=== PATIENT | female | born 1955 | race Caucasian/White ===

== ENCOUNTER → 2024-07-15 | Outpatient (CLI) | payer MEDICARE, BC, SELFPAY ==
[2024-07-15 11:45] LABS: Basophils % (Auto) 0 % (0-2.5); Eosinophils # (Auto) 0.2 Thou/mm3 (0.0-0.5); Eosinophils % (Auto) 4 % (0-10); Hematocrit 28.5 % (36.0-46.0); Immature Granulocytes % (Auto) 1 % (0-0); Immature Granulocytes Auto 0.05 Thou/mm3 (0.00-0.00); Lymphocytes # (Auto) 1.1 Thou/mm3 (1.0-4.8); Lymphocytes % (Auto) 24 % (10-50); Mean Corpuscular HGB Conc 30.2 g/dl (31.0-37.0); Mean Corpuscular Hemoglobin 28.2 pg (25.0-35.0); Mean Corpuscular Volume 93 fL (80-100); Monocytes # (Auto) 0.6 Thou/mm3 (0.0-0.8); Monocytes % (Auto) 12 % (0-12); Neutrophils # (Auto) 2.7 Thou/mm3 (1.8-7.7); Neutrophils % (Auto) 58 % (37-80); Nucleated Red Blood Cell % 0 /100 WBC (0); Platelet Count 286 Thou/mm3 (140-440); RDW Standard Deviation 63.4 fL (36.4-46.3); Red Blood Count 3.05 Miln/mm3 (4.00-5.20); White Blood Count 4.7 Thou/mm3 (3.6-11.0)
[2024-07-15 11:47] LABS: Hemoglobin 8.6 g/dL (12.0-16.0); Partial Thromboplastin Time 25.4 Seconds (22.0-36.0); Prothrombin Time 10.7 Seconds (9.0-12.2)
[2024-07-15 11:55] LABS: Glucose Estimated Average 123 mg/dL (80-131); Hemoglobin A1C 5.9 % Hgb (4.8-6.0)
[2024-07-15 12:34] LABS: Alanine Aminotransferase 12 U/L (10-49); Albumin, Serum 3.7 gm/dL (3.4-4.8); Albumin/Globulin Ratio 1.9 (1.2-2.2); Alkaline Phosphatase 100 U/L (46-116); Anion Gap 7 (7-16); Aspartate Amino Transferase 15 U/L (0-34); BUN/Creatinine Ratio 19 Ratio (12-20); Bilirubin,Total 0.2 mg/dL (0.3-1.2); Blood Urea Nitrogen 25 mg/dL (9-23); Calcium (Corrected) 9.2 mg/dL (8.5-10.1); Carbon Dioxide 28.1 mMol/L (20.0-31.0); Chloride 104 mMol/L (98-107); Creatinine (Component) 1.3 mg/dL (0.6-1.3); Glucose 156 mg/dL (74-106); Osmolality,Calculated 284 (275-295); Potassium 3.9 mMol/L (3.4-5.1); Sodium 139 mMol/L (136-145); Total Protein 5.7 gm/dL (5.7-8.2); eGFR 45 See Note
== END | disposition home or self-care (01) ==
LOC: COPL 10:16
PROVIDERS: PCP Internal Medicine; Referring Provider Internal Medicine; Visit Provider Internal Medicine
DX: M19.90 Unspecified osteoarthritis, unspecified site (principal); E11.9 Type 2 diabetes mellitus without complications
CPT/HCPCS: 36415; 80053; 83036; 85025; 85610; 85730

== ENCOUNTER → 2024-07-23 | Outpatient (CLI) | payer MEDICARE, BC, SELFPAY ==
--- NOTE | 2024-07-23 08:30 | XR_ITS ---
Examination: MRI pelvis with intravenous contrast. MRI pelvis without intravenous contrast. Date and time of exam: July 23, 2024 0843 hrs. Comparison May 27, 2024 Indications: Burning sensation in the pelvis 3 weeks status post radiation therapy, diagnosis uterine cancer Technique: Multiple axial, sagittal and coronal sections of the pelvis obtained. Transverse images, TR 6020, TE 107. T1 weighted transverse images, TR 582, TE 9.5. T2-weighted sagittal images, TR 4000, TE 105. T2-weighted sagittal images, TR 4000, TE 5. Coronal images, TR 4210, TE 107. Axial and coronal images are obtained post 15 cc intravenous injection, gadolinium. Findings: Uterus 10 x 6 x 5 cm The endometrial uterine mass has markedly decreased in size, 18 x 12 x 10 mm compared to 18 x 35 x 37 mm on the pretreatment exam Endometrial stripe is 9 mm 6 mm left internal iliac lymph node, 4 mm right internal iliac lymph node No free fluid in the pelvis Colonic diverticulosis Impression: Marked decrease in size of uterine mass 1.8 x 1.2 x 1.0 cm compared with 1.8 x 3.5 x 3.7 cm on the pretreatment examination
== END | disposition home or self-care (01) ==
PROVIDERS: PCP Internal Medicine; Referring Provider Internal Medicine; Visit Provider Internal Medicine
DX: R19.00 Intra-abdominal and pelvic swelling, mass and lump, unspecified site (principal); C54.1 Malignant neoplasm of endometrium
CPT/HCPCS: 72197; A9579

== ENCOUNTER 2024-10-27 04:43 | Inpatient (IN) | payer MEDICARE, BC, SELFPAY ==
[2024-10-27] VITALS (32 sets, daily range): BP systolic 80–112; BP diastolic 45–78; PULSE 0–135; RESP 14–100; TEMP 36.2–38.6; O2SAT 89–100
--- NOTE | 2024-10-27 05:21 | XR_ITS ---
Examination: AP chest single view Technique one AP portable semiupright chest single view Exam date and time: October 27, 2024 0559 hours INDICATIONS: Sepsis protocol FINDINGS: Pneumonia left base obscuring detail left hemidiaphragm Right Port-A-Cath tip SVC Mild enlargement left ventricle IMPRESSION: Pneumonia left base
[2024-10-27] MEDS: SODIUM CHLORIDE 0.9% 1000 ML 1,000 ML 999 ML IV ×2 (05:40→06:36)
[2024-10-27 05:41] LABS: Collection Type, Urine Catheter
[2024-10-27 05:51] LABS: Lactate (Lactic Acid) 1.6 mMol/L (0.4-2.0)
[2024-10-27] MEDS: PIPER/TAZO 3.375 GM PREMIX 3.375 GM/50 ML BAG IV ×3 (05:54→22:17)
--- NOTE | 2024-10-27 05:54 | PD.EDADULT ---
ED General RME/HPI General Chief complaint: Nausea/Vomiting/Diarrhea Stated complaint: vomiting Arrival date/time: 10/27/24 04:43 RME / HPI RME / HPI narrative: Patient is a 69 yearsn old female with PMH of bilateral obstructive nephrolithiasis s/p bilateral nephrostomy, chronic blood loss anemia secondary to uterine bleeding from endometrial cancer on chemo/radiotherapy, history of recurrent blood transfusions, COPD with 2L baseline O2, NIDDM, unspecified colitis, GERD presented to the ED due to nausea, vomiting for 2 days. She reports her abdominal pain is chronic due to multiple abdominal surgeries (cholecystectomy, hernia repair, ovarian cyst removal, unsuccessful hysterectomy). Nephrostomy tubes were placed somwhere in September as per patient. She denies fever, chest pain, diarrhea, melena or blood per rectum. She reports constipation, her last bowel movement was yesterday and was very small, she cannot recall when was prior bowel movement. She produces small ammount of urine. Related Data Home Medications ?Medication ?Instructions ?Recorded ?Confirmed ascorbic acid (vitamin C) 500 mg 500 mg PO BID #0 tabs 08/15/15 06/14/23 tablet (Vitamin C) cholecalciferol (vitamin D3) 25 1,000 unit PO QDAY #0 tabs 08/15/15 06/14/23 mcg (1,000 unit) capsule (Vitamin D3) aspirin 81 mg tablet,delayed 81 mg PO QDAY 07/01/19 06/14/23 release cyanocobalamin (vitamin B-12) 1,000 mcg PO QDAY 07/01/19 06/14/23 1,000 mcg tablet (Vitamin B-12) glucosamine HCl 500 mg tablet 1,000 mg PO QAM 07/01/19 06/14/23 albuterol 90 mcg/actuation aerosol 90 mcg inhalation [id number] PRN 04/30/23 06/14/23 inhaler Wheezing diphenhydramine HCl 25 mg tablet 25 mg PO Q12HR PRN Itching 06/14/23 06/14/23 (Benadryl Allergy) ipratropium 18 mcg-albuterol 103 2 spray inhalation Q6HR PRN 06/14/23 06/14/23 mcg/actuation aerosol inhaler Shortness Of Breath Or Wheezing magnesium oxide 400 mg PO QDAY 06/14/23 06/14/23 melatonin 5 mg tablet 5 mg PO HS PRN Sleep 06/14/23 06/14/23 ondansetron HCl 4 mg tablet 4 mg PO Q6H PRN Nausea 06/14/23 06/14/23 pantoprazole 40 mg tablet,delayed 40 mg PO QDAY 06/14/23 06/14/23 release (Protonix) Previous Rx's ?Medication ?Instructions ?Recorded ferrous sulfate 325 mg (65 mg 325 mg PO DAILY #30 tabs 05/07/23 iron) tablet,delayed release oxycodone-acetaminophen 5 mg-325 1 tab PO Q8H PRN pain #7 tabs 11/04/24 mg tablet (Percocet) Allergies Allergy/AdvReac Type Severity Reaction Status Date / Time coconut oil Allergy Severe Rash Verified 10/31/24 12:33 clindamycin Allergy Diarrhea Verified 10/31/24 12:33 Review of Systems Review of Systems Systems Reviewed: All systems reviewed, normal except as documented ED Exam Narrative Physical exam: Gen: Well-developed and well-nourished obese female. HEENT: NCAT, PERRLA, EOMI, MMM, anicteric conjunctivae. CVS: normal S1 and S2. Regular tachycardia. No M/R/G. Resp: decreased BS over left base. No rhonchi, rales, crackles or wheezing. Abd: soft, obese, tender throughout with voluntary guarding, non-distended. BS+ in all 4 quadrants. : B/L CVA and suprapubic tenderness. Bilateral nephrostomy tubes noted, left is draining cloudy urine. MSK: Good ROM in BUE & BLE. No edema or rash. Neuro: CN II-XII grossly intact. Strength 5/5 in BUE & BLE. Alert and oriented x3. Psych: appears upset. Course Course Course Narrative: 0512: sepsis alert. Given Zosyn and IVF. Cultures taken. 1100: decision to admit, hospitalist wants to consult urology prior to admission because the patient is at high risk of urologic complications and given her UTI she might need urology services during hospital stay which is not available at [facility]. Transfer center was contacted. 1200: blood pressure continued to drop, MAP below 65 despite fluid resuscitation. Started on Levophed gtt septic shock protocol. ICU consulted for admission. Quality Measures none Orders Category Date Time Status Bedside Blood Glucose ACHS Care 10/27/24 05:21 Active Bedside Blood Glucose NOW Care 10/27/24 07:02 Completed Bedside COVID-19 Antigen Test NOW Care 10/27/24 05:17 Completed Bedside Influenza A&B Antigen Test NOW Care 10/27/24 05:17 Completed COVID-19 Screening Questionnaire NOW Care 10/27/24 11:03 Completed COVID-19 Screening Questionnaire NOW Care 10/27/24 12:18 Completed Inspector Aide Q4H START 00 Care 10/27/24 05:21 Active Decision to Admit X1 Care 10/27/24 11:03 Completed Decision to Admit X1 Care 10/27/24 12:18 Completed EKG (ED ONLY) *Do not use* NOW Care 10/27/24 05:11 Completed IV [Insert IV] NOW Care 10/27/24 05:23 Completed Insert IV NOW Care 10/27/24 05:21 Completed Miscellaneous Nursing Order NOW Care 10/27/24 12:51 Active Strict Intake and Output Routine Care 10/27/24 05:[address] abdomen pelvis wo con Stat Exams 10/27/24 07:01 Completed EKG (ED Only) Stat Exams 10/27/24 05:11 Ordered XR chest 1V SEPSIS PROTOCOL Stat Exams 10/27/24 05:21 Completed BNP [B-Type Natriuretic Peptide] Stat Lab 10/27/24 05:30 Completed Blood Culture (Lab) Stat Lab 10/27/24 05:30 Completed CBC Stat Lab 10/27/24 05:30 Completed CMP [Comprehensive Metabolic Panel] Stat Lab 10/27/24 05:30 Completed Lactic Acid [Lactate (Lactic Acid)] Stat Lab 10/27/24 05:30 Completed Lipase Stat Lab 10/27/24 05:30 Completed Procalcitonin Stat Lab 10/27/24 05:30 Completed Prothrombin Time with INR Stat Lab 10/27/24 05:30 Completed Troponin I Stat Lab 10/27/24 05:30 Completed Urinalysis, C/S if Indicated Stat Lab 10/27/24 05:30 Completed Urine Culture Stat Lab 10/27/24 05:30 Completed Acetaminophen Tab [Tylenol Tab] Med 10/27/24 06:17 Discontinued 650 mg PO X1 ONE Calcium Chloride 10% Abboject Med 10/27/24 07:02 Discontinued 10 ml IV X1 ONE Dextrose 50% Syr [D50w Syringe Abboject] Med 10/27/24 07:03 Discontinued 50 ml IV X1 ONE Insulin Regular Med 10/27/24 07:02 Discontinued 10 unit IV X1 ONE Ketorolac Inj [Toradol Inj] Med 10/27/24 11:01 Discontinued 15 mg IVP X1 ONE Norepinephrine/D5W 8mg/250ml [Levophed in D5W 8mg/250ml Med 10/27/24 12:35 Discontinued ] 8 mg in 250 ml IV 0.05 mcg/kg/min Piper/Tazo 3.375 gm Premix [Zosyn] Med 10/27/24 05:28 Discontinued 3.375 gm in 50 ml IV X1 Sodium Chloride 0.9% 1000 ml [Ns] 1,000 ml Med 10/27/24 05:25 Discontinued IV 999 mls/hr Sodium Chloride 0.9% 1000 ml [Ns] 1,000 ml Med 10/27/24 05:28 Discontinued IV 999 mls/hr Sodium Chloride 0.9% 500 ml [Ns] 500 ml Med 10/27/24 11:02 Discontinued IV 999 mls/hr Sodium Chloride 0.9% 500 ml [Ns] 500 ml Med 10/27/24 12:17 Discontinued IV 999 mls/hr EKG (RT) Stat RT 10/27/24 05:21 Ordered Oxygen Delivery NOW RT 10/27/24 05:21 Completed Vital Signs Vital signs: Vital Signs Temperature 99.8 F 10/27/24 04:49 Pulse Rate 133 H 10/27/24 04:49 Respiratory Rate 18 10/27/24 04:49 Blood Pressure 102/71 10/27/24 04:49 Pulse Oximetry (%) 97 10/27/24 04:49 Oxygen Delivery Method Room Air 10/27/24 04:49 Procedures -ED EKG Interpretation #1: Date of EK10/27/24 Time of EK:17 Rate: 133 Interpretation: Reviewed by me EKG Impression: Sinus tachycardia and Non-specific ST-T MDM Patient data External records reviewed:: [facility] previous records and EMS form Clinical information provided by:: patient Social determinants that could affect healthcare access:: none Patient has the following chronic illnesses:: bilateral obstructive nephrolithiasis s/p bilateral nephrostomy, chronic blood loss anemia secondary to abnormal uterine bleeding from endometrial cancer, history of recurrent blood transfusions, COPD with 2L baseline O2, NIDDM, GERD How is presenting disease/condition affected by chronic disease/condition?: exacerbated by Evaluation data The following diagnostics were reviewed and interpreted by me:: lab results, radiology exam(s) and EKG tracing(s) Lab and/or radiology exams considered but not ordered:: CT AP Interpretation Summary: UTI, left base pneumonia, mild anemia, mild hyperkalemia, mild hyponatremia, WARREN (Cr 2.3), hyperglycemia, early diverticulitis. Medications Medications considered but not ordered:: na Medication administrations:: Medication Administration History Acetaminophen (Acetaminophen 325 Mg Tablet) 650 mg PO Q4HR PRN PRN Reason: PAIN SCALE 1-3 (mild Stop: 11/26/24 12:56 Acetaminophen (Acetaminophen Supp 650 Mg Supp) 650 mg VT Q4HR PRN PRN Reason: PAIN SCALE 1-3 (mild Stop: 11/26/24 12:56 Al Hydrox/Mg Hydrox/Simethicone (Mg Hyd/Al Hyd/Bety (Maalox Reg) Susp 30 Ml Udc) 30 ml PO Q4HR PRN PRN Reason: Heartburn or Upset Stomach Stop: 11/26/24 12:56 Heparin Sodium (Porcine) (Heparin Sod Inj 5000 Unit/Ml Vial) 5,000 unit SC Q12HR JESSICA Stop: 11/19/24 11:29 Last Admin: 11/05/24 11:55 Dose: 5,000 unit Documented By: CARLA Co-signed By: PHOEBE Hydromorphone HCl (Hydromorphone Inj 2 Mg/Ml Vial) 0.25 mg IVP Q4HR PRN PRN Reason: PAIN 4-10 Stop: 11/08/24 11:24 Last Admin: 11/05/24 13:42 Dose: 0.25 mg Documented By: CARLA Levofloxacin (Levofloxacin 250 Mg Tablet) 750 mg PO Q48H JESSICA Stop: 11/12/24 20:59 Magnesium Hydroxide (Milk Of Magnesia Susp 30 Ml Udc) 30 ml PO QDAY PRN PRN Reason: CONSTIPATION Stop: 11/26/24 12:56 Last Admin: 11/04/24 14:34 Dose: 30 ml Documented By: PHOEBE Midodrine (Midodrine 5 Mg Tablet) 10 mg PO TID JESSICA Stop: 11/28/24 06:59 Last Admin: 11/05/24 13:43 Dose: 10 mg Documented By: Admin: 11/05/24 05:47 Dose: 10 mg Documented By: Admin: 11/04/24 21:11 Dose: 10 mg Documented By: Admin: 11/04/24 14:34 Dose: 10 mg Documented By: Admin: 11/04/24 05:32 Dose: 10 mg Documented By: Admin: 11/03/24 21:17 Dose: 10 mg Documented By: Admin: 11/03/24 14:26 Dose: 10 mg Documented By: Admin: 11/03/24 05:31 Dose: 10 mg Documented By: Admin: 11/02/24 21:33 Dose: 10 mg Documented By: Admin: 11/02/24 13:21 Dose: Not Given Documented By: CARLA Non-Admin Reason: pt transferred to [facility] for procedure Admin: 11/02/24 06:16 Dose: 10 mg Documented By: Admin: 11/01/24 22:21 Dose: 10 mg Documented By: Admin: 11/01/24 13:51 Dose: 10 mg Documented By: Admin: 11/01/24 05:01 Dose: 10 mg Documented By: Admin: 10/31/24 21:14 Dose: 10 mg Documented By: Admin: 10/31/24 14:24 Dose: 10 mg Documented By: Admin: 10/31/24 06:01 Dose: 10 mg Documented By: Admin: 10/30/24 22:13 Dose: 10 mg Documented By: Admin: 10/30/24 13:40 Dose: 10 mg Documented By: KASSANDRA(2) Admin: 10/30/24 06:00 Dose: 10 mg Documented By: Admin: 10/29/24 21:30 Dose: 10 mg Documented By: Admin: 10/29/24 13:48 Dose: 10 mg Documented By: Admin: 10/29/24 08:25 Dose: 10 mg Documented By: LALA Nitroglycerin (Nitroglycerin 0.4 Mg Subl Btl #25) 0.4 mg SL Q5MIN PRN PRN Reason: CHEST PAIN Ondansetron HCl (Ondansetron Inj 2 Mg/Ml Inj 2 Ml) 4 mg IV Q6HR PRN; Protocol PRN Reason: NAUSEA OR VOMITING Stop: 11/27/24 10:35 Last Admin: 11/05/24 08:56 Dose: 4 mg Documented By: Admin: 11/04/24 23:40 Dose: 4 mg Documented By: Admin: 11/04/24 04:33 Dose: 4 mg Documented By: Admin: 11/03/24 08:24 Dose: 4 mg Documented By: Admin: 11/02/24 18:16 Dose: 4 mg Documented By: Admin: 11/02/24 08:30 Dose: 4 mg Documented By: Admin: 11/01/24 22:20 Dose: 4 mg Documented By: Admin: 11/01/24 11:18 Dose: 4 mg Documented By: Admin: 11/01/24 04:40 Dose: 4 mg Documented By: Admin: 10/31/24 21:15 Dose: 4 mg Documented By: Admin: 10/31/24 07:47 Dose: 4 mg Documented By: Admin: 10/30/24 19:24 Dose: 4 mg Documented By: Admin: 10/30/24 04:18 Dose: 4 mg Documented By: Admin: 10/29/24 12:29 Dose: 4 mg Documented By: Admin: 10/29/24 05:34 Dose: 4 mg Documented By: Admin: 10/28/24 22:12 Dose: 4 mg Documented By: Admin: 10/28/24 10:41 Dose: 4 mg Documented By: KASSANDRA(2) Pantoprazole Sodium (Pantoprazole Inj 40 Mg Vial) 40 mg IV QDAY JESSICA Stop: 11/26/24 15:44 Last Admin: 11/05/24 08:55 Dose: 40 mg Documented By: Admin: 11/04/24 08:02 Dose: 40 mg Documented By: Admin: 11/03/24 08:24 Dose: 40 mg Documented By: Admin: 11/02/24 08:41 Dose: 40 mg Documented By: Admin: 11/01/24 09:34 Dose: 40 mg Documented By: Admin: 10/31/24 08:37 Dose: 40 mg Documented By: Admin: 10/30/24 09:11 Dose: 40 mg Documented By: KASSANDRA(2) Admin: 10/29/24 08:24 Dose: 40 mg Documented By: Admin: 10/28/24 08:23 Dose: 40 mg Documented By: KASSANDRA(2) Admin: 10/27/24 15:45 Dose: 40 mg Documented By: MC Discontinued Medications Acetaminophen (Acetaminophen 325 Mg Tablet) 650 mg PO X1 ONE Stop: 10/27/24 06:18 Last Admin: 10/27/24 06:33 Dose: 650 mg Documented By: CVL Hydrocodone Bitart/Acetaminophen (Hydrocodone/Apap 5/325 Tablet) 1 tab PO Q6HR PRN PRN Reason: Pain 4-6 Stop: 11/02/24 09:16 Last Admin: 10/30/24 19:20 Dose: 1 tab Documented By: YARA Hydrocodone Bitart/Acetaminophen (Hydrocodone/Apap 5/325 Tablet) 1 tab PO X1 ONE Stop: 11/02/24 17:59 Last Admin: 11/02/24 18:06 Dose: Not Given Documented By: PHOEBE Non-Admin Reason: Patient Refused Hydrocodone Bitart/Acetaminophen (Hydrocodone/Apap 5/325 Tablet) 1 tab PO Q6HR PRN PRN Reason: PAIN SCALE 4-6 (Moderate Stop: 11/08/24 08:39 Aspirin (Aspirin 81 Mg Chew) 162 mg PO X1 ONE Stop: 10/30/24 16:01 Last Admin: 10/30/24 16:07 Dose: 162 mg Documented By: KASSANDRA(2) Calcium Chloride (Calcium Chloride 10% Inj 10 Ml Syrg) 10 ml IV X1 ONE Stop: 10/27/24 07:03 Last Admin: 10/27/24 07:51 Dose: 10 ml Documented By: MONSE Dextrose (Dextrose 50%-Water Inj 50 Ml Syringe) 50 ml IV X1 ONE Stop: 10/27/24 07:04 Last Admin: 10/27/24 07:54 Dose: 50 ml Documented By: MONSE Fentanyl Citrate (Fentanyl Cit Inj 50 Mcg/Ml Amp 2ml) Confirm Administered Dose 100 mcg .ROUTE .STK-MED ONE Stop: 10/31/24 12:17 Last Admin: 10/31/24 13:20 Dose: Not Given Documented By: TOLU Non-Admin Reason: Duplicate Medication on eMAR Fentanyl Citrate (Fentanyl Cit Inj 50 Mcg/Ml Amp 2ml) 50 mcg IVP X1 ONE Stop: 10/31/24 12:44 Last Admin: 10/31/24 12:44 Dose: 50 mcg Documented By: TOLU Flumazenil (Flumazenil Inj 0.1 Mg/Ml Vial 10 Ml) Confirm Administered Dose 1 mg .ROUTE .STK-MED ONE Stop: 10/31/24 12:17 Last Admin: 10/31/24 13:20 Dose: Not Given Documented By: TOLU Non-Admin Reason: not needed Heparin Sodium (Beef Lung) (Heparin Sod Lock Syr 100 Unit/Ml) 100 unit IV X1 ONE Stop: 11/02/24 00:10 Last Admin: 11/02/24 00:41 Dose: 100 unit Documented By: BRIGHT Heparin Sodium (Beef Lung) (Heparin Sod Lock Syr 100 Unit/Ml) 100 unit IV X1 ONE Stop: 11/02/24 05:46 Last Admin: 11/02/24 06:20 Dose: 100 unit Documented By: BRIGHT Heparin Sodium (Beef Lung) (Heparin Sod Lock Syr 100 Unit/Ml) 500 unit INTRACATH X1 ONE Stop: 11/02/24 12:01 Last Admin: 11/02/24 11:57 Dose: 500 unit Documented By: CARLA Heparin Sodium (Porcine) (Heparin Sod Inj 5000 Unit/Ml Vial) 5,000 unit SC Q8HR JESSICA Stop: 11/13/24 16:14 Last Admin: 11/03/24 05:31 Dose: 5,000 unit Documented By: AL Co-signed By: HOLGER Admin: 11/02/24 21:33 Dose: 5,000 unit Documented By: AL Co-signed By: ADRI Admin: 11/02/24 13:21 Dose: Not Given Documented By: CARLA Non-Admin Reason: pt transferred to [facility] for procedure Admin: 11/02/24 06:16 Dose: 5,000 unit Documented By: BRIGHT Co-signed By: LIZANDRO Admin: 11/01/24 22:20 Dose: 5,000 unit Documented By: CP Co-signed By: RB Admin: 10/31/24 06:01 Dose: 5,000 unit Documented By: RH Co-signed By: GILBERT Admin: 10/30/24 22:14 Dose: 5,000 unit Documented By: RH Co-signed By: GILBERT Admin: 10/30/24 16:34 Dose: 5,000 unit Documented By: KASSANDRA(2) Co-signed By: loraine Heparin Sodium (Porcine) (Heparin Sod Inj 100 Unit/Ml Vial 30 Ml) 100 unit IV X1 ONE Stop: 11/02/24 05:06 Hydromorphone HCl (Hydromorphone Inj 2 Mg/Ml Vial) 0.25 mg IVP Q4HR PRN PRN Reason: PAIN 4-10 Stop: 11/08/24 11:24 Last Admin: 11/03/24 14:19 Dose: 0.25 mg Documented By: BRENTON Hydromorphone HCl (Hydromorphone Inj 2 Mg/Ml Vial) 0.25 mg IVP X1 ONE Stop: 11/03/24 15:55 Last Admin: 11/03/24 16:13 Dose: 0.25 mg Documented By: BRENTON Hydromorphone HCl (Hydromorphone Inj 2 Mg/Ml Vial) 0.5 mg IVP Q4HR PRN PRN Reason: PAIN 4-10 Stop: 11/08/24 11:24 Last Admin: 11/05/24 08:55 Dose: 0.5 mg Documented By: Admin: 11/05/24 03:49 Dose: 0.5 mg Documented By: Admin: 11/04/24 23:41 Dose: 0.5 mg Documented By: Admin: 11/04/24 19:40 Dose: 0.5 mg Documented By: Admin: 11/04/24 14:34 Dose: 0.5 mg Documented By: Admin: 11/04/24 09:11 Dose: 0.5 mg Documented By: Admin: 11/04/24 04:32 Dose: 0.5 mg Documented By: Admin: 11/03/24 21:16 Dose: 0.5 mg Documented By: FARTUN Sodium Chloride (Ns) 1,000 mls @ 999 mls/hr IV .Q1H1M ONE Stop: 10/27/24 06:25 Last Infusion: 10/27/24 06:42 Dose: Infused Documented By: Admin: 10/27/24 05:40 Dose: 999 mls/hr Documented By: CVL Piperacillin/Tazobactam/Dextrose (Zosyn) 3.375 gm in 50 mls @ 100 mls/hr IV X1 ONE Stop: 10/27/24 05:57 Last Infusion: 10/27/24 06:28 Dose: Infused Documented By: Admin: 10/27/24 05:54 Dose: 100 mls/hr Documented By: CVL Sodium Chloride (Ns) 1,000 mls @ 999 mls/hr IV .Q1H1M ONE Stop: 10/27/24 06:28 Last Infusion: 10/27/24 07:37 Dose: Infused Documented By: Admin: 10/27/24 06:36 Dose: 999 mls/hr Documented By: CVLucas Sodium Chloride (Ns) 500 mls @ 999 mls/hr IV .Q31M ONE Stop: 10/27/24 11:32 Last Infusion: 10/27/24 12:12 Dose: Infused Documented By: Admin: 10/27/24 11:18 Dose: 999 mls/hr Documented By: JEROME Sodium Chloride (Ns) 500 mls @ 999 mls/hr IV .Q31M ONE Stop: 10/27/24 12:47 Last Infusion: 10/27/24 13:10 Dose: Infused Documented By: Admin: 10/27/24 12:34 Dose: 999 mls/hr Documented By: BERTIN Norepinephrine/Dextrose (Levophed In D5w 8mg/250ml) 8 mg in 250 mls @ 8.066 mls/hr IV .Q24H PRN; Protocol PRN Reason: PER PROTOCOL Stop: 11/26/24 12:34 Last Titration: 10/31/24 17:00 Dose: 0 mcg/kg/min, 0 mls/hr Documented By: Titration: 10/31/24 16:00 Dose: 0.01 mcg/kg/min, 1.613 mls/hr Documented By: Titration: 10/31/24 15:42 Dose: 0.01 mcg/kg/min, 1.613 mls/hr Documented By: Titration: 10/31/24 15:00 Dose: 0.03 mcg/kg/min, 4.839 mls/hr Documented By: Titration: 10/31/24 14:00 Dose: 0.03 mcg/kg/min, 4.839 mls/hr Documented By: Titration: 10/31/24 13:00 Dose: 0.05 mcg/kg/min, 8.066 mls/hr Documented By: Titration: 10/31/24 12:00 Dose: 0.05 mcg/kg/min, 8.066 mls/hr Documented By: Titration: 10/31/24 11:09 Dose: 0.05 mcg/kg/min, 8.066 mls/hr Documented By: Titration: 10/30/24 22:48 Dose: 0 mcg/kg/min, 0 mls/hr Documented By: Titration: 10/30/24 22:00 Dose: 0.01 mcg/kg/min, 1.613 mls/hr Documented By: Titration: 10/30/24 21:00 Dose: 0.01 mcg/kg/min, 1.613 mls/hr Documented By: Titration: 10/30/24 20:48 Dose: 0.01 mcg/kg/min, 1.613 mls/hr Documented By: Titration: 10/30/24 20:15 Dose: 0.03 mcg/kg/min, 4.839 mls/hr Documented By: Titration: 10/30/24 20:00 Dose: 0.05 mcg/kg/min, 8.066 mls/hr Documented By: Titration: 10/30/24 19:00 Dose: 0.05 mcg/kg/min, 8.066 mls/hr Documented By: Titration: 10/30/24 18:31 Dose: 0.05 mcg/kg/min, 8.066 mls/hr Documented By: KASSANDRA(2) Titration: 10/30/24 18:00 Dose: 0 mcg/kg/min, 0 mls/hr Documented By: KASSANDRA(2) Titration: 10/30/24 17:50 Dose: 0 mcg/kg/min, 0 mls/hr Documented By: KASSANDRA(2) Titration: 10/30/24 17:00 Dose: 0.03 mcg/kg/min, 4.839 mls/hr Documented By: KASSANDRA(2) Titration: 10/30/24 16:40 Dose: 0.03 mcg/kg/min, 4.839 mls/hr Documented By: KASSANDRA(2) Titration: 10/30/24 16:00 Dose: 0.01 mcg/kg/min, 1.613 mls/hr Documented By: KASSANDRA(2) Titration: 10/30/24 15:44 Dose: 0.01 mcg/kg/min, 1.613 mls/hr Documented By: KASSANDRA(2) Titration: 10/30/24 15:00 Dose: 0.03 mcg/kg/min, 4.839 mls/hr Documented By: KASSANDRA(2) Titration: 10/30/24 14:00 Dose: 0.03 mcg/kg/min, 4.839 mls/hr Documented By: KASSANDRA(2) Titration: 10/30/24 13:45 Dose: 0.03 mcg/kg/min, 4.839 mls/hr Documented By: KASSANDRA(2) Titration: 10/30/24 13:03 Dose: 0.05 mcg/kg/min, 8.066 mls/hr Documented By: KASSANDRA(2) Titration: 10/30/24 12:00 Dose: 0.05 mcg/kg/min, 8.066 mls/hr Documented By: KASSANDRA(2) Titration: 10/30/24 11:00 Dose: 0.05 mcg/kg/min, 8.066 mls/hr Documented By: KASSANDRA(2) Titration: 10/30/24 10:00 Dose: 0.05 mcg/kg/min, 8.066 mls/hr Documented By: KASSANDRA(2) Titration: 10/30/24 09:00 Dose: 0.05 mcg/kg/min, 8.066 mls/hr Documented By: KASSANDRA(2) Titration: 10/30/24 08:00 Dose: 0.05 mcg/kg/min, 8.066 mls/hr Documented By: KASSANDRA(2) Titration: 10/30/24 07:00 Dose: 0.05 mcg/kg/min, 8.066 mls/hr Documented By: KASSANDRA(2) Titration: 10/30/24 06:45 Dose: 0.05 mcg/kg/min, 8.066 mls/hr Documented By: KASSANDRA(2) Admin: 10/30/24 06:36 Dose: 0.05 mcg/kg/min, 8.066 mls/hr Documented By: Titration: 10/30/24 06:36 Dose: Infused Documented By: Titration: 10/29/24 08:30 Dose: 0 mcg/kg/min, 0 mls/hr Documented By: Titration: 10/29/24 08:09 Dose: 0.01 mcg/kg/min, 1.613 mls/hr Documented By: Titration: 10/29/24 08:02 Dose: 0.03 mcg/kg/min, 4.839 mls/hr Documented By: Titration: 10/29/24 08:00 Dose: 0.05 mcg/kg/min, 8.066 mls/hr Documented By: Titration: 10/29/24 07:00 Dose: 0.05 mcg/kg/min, 8.066 mls/hr Documented By: Titration: 10/29/24 06:57 Dose: 0.05 mcg/kg/min, 8.066 mls/hr Documented By: Titration: 10/29/24 06:35 Dose: 0.03 mcg/kg/min, 4.839 mls/hr Documented By: Titration: 10/29/24 04:08 Dose: 0 mcg/kg/min, 0 mls/hr Documented By: Titration: 10/29/24 04:00 Dose: 0.01 mcg/kg/min, 1.613 mls/hr Documented By: Titration: 10/29/24 03:00 Dose: 0.01 mcg/kg/min, 1.613 mls/hr Documented By: Titration: 10/29/24 02:15 Dose: 0.01 mcg/kg/min, 1.613 mls/hr Documented By: Titration: 10/29/24 02:00 Dose: 0.03 mcg/kg/min, 4.839 mls/hr Documented By: Titration: 10/29/24 01:00 Dose: 0.03 mcg/kg/min, 4.839 mls/hr Documented By: Titration: 10/29/24 00:25 Dose: 0.03 mcg/kg/min, 4.839 mls/hr Documented By: Titration: 10/29/24 00:00 Dose: 0.05 mcg/kg/min, 8.066 mls/hr Documented By: Titration: 10/28/24 23:00 Dose: 0.05 mcg/kg/min, 8.066 mls/hr Documented By: Titration: 10/28/24 22:00 Dose: 0.05 mcg/kg/min, 8.066 mls/hr Documented By: Titration: 10/28/24 21:00 Dose: 0.05 mcg/kg/min, 8.066 mls/hr Documented By: Titration: 10/28/24 20:00 Dose: 0.05 mcg/kg/min, 8.066 mls/hr Documented By: Titration: 10/28/24 19:00 Dose: 0.05 mcg/kg/min, 8.066 mls/hr Documented By: Titration: 10/28/24 18:00 Dose: 0 mcg/kg/min, 0.05 mls/hr Documented By: KASSANDRA(2) Titration: 10/28/24 17:00 Dose: 0 mcg/kg/min, 0.05 mls/hr Documented By: KASSANDRA(2) Titration: 10/28/24 17:00 Dose: 0 mcg/kg/min, 0.05 mls/hr Documented By: KASSANDRA(2) Titration: 10/28/24 16:00 Dose: 0 mcg/kg/min, 0.05 mls/hr Documented By: KASSANDRA(2) Titration: 10/28/24 16:00 Dose: 0 mcg/kg/min, 0.05 mls/hr Documented By: KASSANDRA(2) Titration: 10/28/24 15:00 Dose: 0 mcg/kg/min, 0.05 mls/hr Documented By: KASSANDRA(2) Titration: 10/28/24 15:00 Dose: 0 mcg/kg/min, 0.05 mls/hr Documented By: KASSANDRA(2) Titration: 10/28/24 14:00 Dose: 0 mcg/kg/min, 0.05 mls/hr Documented By: KASSANDRA(2) Titration: 10/28/24 14:00 Dose: 0 mcg/kg/min, 0.05 mls/hr Documented By: KASSANDRA(2) Admin: 10/28/24 13:44 Dose: 0 mcg/kg/min, 0.05 mls/hr Documented By: KASSANDRA(2) Titration: 10/28/24 13:44 Dose: Infused Documented By: KASSANDRA(2) Titration: 10/28/24 13:00 Dose: 0 mcg/kg/min, 0.05 mls/hr Documented By: KASSANDRA(2) Titration: 10/28/24 12:00 Dose: 0 mcg/kg/min, 0.05 mls/hr Documented By: KASSANDRA(2) Titration: 10/28/24 11:00 Dose: 0 mcg/kg/min, 0.05 mls/hr Documented By: KASSANDRA(2) Titration: 10/28/24 10:00 Dose: 0 mcg/kg/min, 0.05 mls/hr Documented By: KASSANDRA(2) Titration: 10/28/24 09:00 Dose: 0 mcg/kg/min, 0.05 mls/hr Documented By: KASSANDRA(2) Titration: 10/28/24 08:32 Dose: 0 mcg/kg/min, 0.05 mls/hr Documented By: KASSANDRA(2) Titration: 10/28/24 08:00 Dose: 0 mcg/kg/min, 0.05 mls/hr Documented By: KASSANDRA(2) Titration: 10/28/24 07:00 Dose: 0 mcg/kg/min, 0.05 mls/hr Documented By: KASSANDRA(2) Titration: 10/28/24 06:00 Dose: 0.05 mcg/kg/min, 8.066 mls/hr Documented By: Titration: 10/28/24 05:30 Dose: 0.05 mcg/kg/min, 8.066 mls/hr Documented By: Titration: 10/28/24 05:00 Dose: 0.07 mcg/kg/min, 11.292 mls/hr Documented By: Titration: 10/28/24 04:00 Dose: 0.07 mcg/kg/min, 11.292 mls/hr Documented By: Titration: 10/28/24 03:00 Dose: 0.07 mcg/kg/min, 11.292 mls/hr Documented By: Titration: 10/28/24 02:00 Dose: 0.07 mcg/kg/min, 11.292 mls/hr Documented By: Titration: 10/28/24 01:00 Dose: 0.07 mcg/kg/min, 11.292 mls/hr Documented By: Titration: 10/28/24 00:00 Dose: 0.07 mcg/kg/min, 11.292 mls/hr Documented By: Titration: 10/27/24 23:00 Dose: 0.07 mcg/kg/min, 11.292 mls/hr Documented By: Titration: 10/27/24 22:00 Dose: 0.07 mcg/kg/min, 11.292 mls/hr Documented By: Titration: 10/27/24 21:00 Dose: 0.07 mcg/kg/min, 11.292 mls/hr Documented By: Titration: 10/27/24 20:20 Dose: 0.07 mcg/kg/min, 11.292 mls/hr Documented By: Titration: 10/27/24 20:00 Dose: 0.07 mcg/kg/min, 11.292 mls/hr Documented By: Titration: 10/27/24 19:55 Dose: 0.07 mcg/kg/min, 11.292 mls/hr Documented By: Titration: 10/27/24 19:50 Dose: 0.07 mcg/kg/min, 11.292 mls/hr Documented By: Titration: 10/27/24 19:45 Dose: 0.09 mcg/kg/min, 14.518 mls/hr Documented By: Titration: 10/27/24 19:40 Dose: 0.09 mcg/kg/min, 14.518 mls/hr Documented By: Titration: 10/27/24 19:25 Dose: 0.09 mcg/kg/min, 14.518 mls/hr Documented By: Titration: 10/27/24 19:20 Dose: 0.09 mcg/kg/min, 14.518 mls/hr Documented By: Titration: 10/27/24 19:15 Dose: 0.09 mcg/kg/min, 14.518 mls/hr Documented By: Titration: 10/27/24 19:00 Dose: 0.11 mcg/kg/min, 17.745 mls/hr Documented By: Titration: 10/27/24 18:45 Dose: 0.11 mcg/kg/min, 17.745 mls/hr Documented By: Titration: 10/27/24 18:15 Dose: 0.11 mcg/kg/min, 17.745 mls/hr Documented By: Titration: 10/27/24 18:00 Dose: 0.11 mcg/kg/min, 17.745 mls/hr Documented By: Titration: 10/27/24 17:45 Dose: 0.11 mcg/kg/min, 17.745 mls/hr Documented By: Titration: 10/27/24 17:30 Dose: 0.11 mcg/kg/min, 17.745 mls/hr Documented By: Titration: 10/27/24 17:15 Dose: 0.11 mcg/kg/min, 17.745 mls/hr Documented By: Titration: 10/27/24 17:00 Dose: 0.11 mcg/kg/min, 17.745 mls/hr Documented By: Titration: 10/27/24 16:55 Dose: 0.11 mcg/kg/min, 17.745 mls/hr Documented By: Titration: 10/27/24 16:50 Dose: 0.11 mcg/kg/min, 17.745 mls/hr Documented By: Titration: 10/27/24 16:45 Dose: 0.09 mcg/kg/min, 14.518 mls/hr Documented By: Titration: 10/27/24 16:40 Dose: 0.07 mcg/kg/min, 11.292 mls/hr Documented By: Titration: 10/27/24 16:25 Dose: 0.05 mcg/kg/min, 8.066 mls/hr Documented By: Titration: 10/27/24 16:10 Dose: 0.05 mcg/kg/min, 8.066 mls/hr Documented By: Titration: 10/27/24 16:05 Dose: 0.05 mcg/kg/min, 8.066 mls/hr Documented By: Titration: 10/27/24 16:00 Dose: 0.05 mcg/kg/min, 8.066 mls/hr Documented By: Admin: 10/27/24 15:47 Dose: 0.05 mcg/kg/min, 8.066 mls/hr Documented By: Lactated Ringer's (Lactated Ringers) 1,000 mls @ 999 mls/hr IV .Q1H1M ONE Stop: 10/27/24 14:03 Last Infusion: 10/27/24 15:35 Dose: Infused Documented By: Admin: 10/27/24 14:14 Dose: 999 mls/hr Documented By: Piperacillin/Tazobactam/Dextrose (Zosyn) 3.375 gm in 50 mls @ 12.5 mls/hr IV Q8HR JESSICA Stop: 11/03/24 21:59 Last Admin: 10/30/24 13:40 Dose: 12.5 mls/hr Documented By: KASSANDRA(2) Infusion: 10/30/24 09:59 Dose: Infused Documented By: KASSANDRA(2) Admin: 10/30/24 05:59 Dose: 12.5 mls/hr Documented By: Infusion: 10/30/24 01:31 Dose: Infused Documented By: Admin: 10/29/24 21:31 Dose: 12.5 mls/hr Documented By: Infusion: 10/29/24 21:31 Dose: Infused Documented By: Infusion: 10/29/24 17:48 Dose: 0 mls/hr Documented By: Admin: 10/29/24 13:49 Dose: 12.5 mls/hr Documented By: Infusion: 10/29/24 09:28 Dose: Infused Documented By: Admin: 10/29/24 05:28 Dose: 12.5 mls/hr Documented By: Infusion: 10/29/24 02:19 Dose: Infused Documented By: Admin: 10/28/24 22:19 Dose: 12.5 mls/hr Documented By: Infusion: 10/28/24 17:44 Dose: Infused Documented By: Admin: 10/28/24 13:44 Dose: 12.5 mls/hr Documented By: KASSANDRA(2) Infusion: 10/28/24 09:44 Dose: Infused Documented By: KASSANDRA(2) Admin: 10/28/24 05:44 Dose: 12.5 mls/hr Documented By: Infusion: 10/28/24 02:20 Dose: Infused Documented By: Admin: 10/27/24 22:17 Dose: 12.5 mls/hr Documented By: YARA Piperacillin/Tazobactam/Dextrose (Zosyn) 3.375 gm in 50 mls @ 100 mls/hr IV X1 ONE Stop: 10/27/24 14:29 Last Infusion: 10/27/24 16:36 Dose: Infused Documented By: Admin: 10/27/24 15:52 Dose: 100 mls/hr Documented By: MC Norepinephrine Bitartrate (Levophed In Ns 16mg/250ml) 16 mg in 250 mls @ 4.033 mls/hr IV .Q24H PRN; Protocol PRN Reason: PER protocol Stop: 11/26/24 15:21 Lactated Ringer's (Lactated Ringers) 500 mls @ 999 mls/hr IV .Q31M ONE Stop: 10/29/24 08:02 Last Infusion: 10/29/24 13:49 Dose: Infused Documented By: Admin: 10/29/24 07:40 Dose: 999 mls/hr Documented By: LALA Comments: unable to scan d/t no 500 ml bags. only 1000 ml Lactated Ringer's (Lactated Ringers) 500 mls @ 999 mls/hr IV .Q31M ONE Stop: 10/29/24 10:26 Last Admin: 10/29/24 13:48 Dose: Not Given Documented By: LALA Non-Admin Reason: Duplicate Medication on eMAR Lactated Ringer's (Lactated Ringers) 1,000 mls @ 100 mls/hr IV .Q10H ONE Stop: 10/29/24 20:57 Last Admin: 10/29/24 11:28 Dose: Not Given Documented By: LALA Non-Admin Reason: Cancelled by Provider Lactated Ringer's (Lactated Ringers) 1,000 mls @ 999 mls/hr IV .Q1H1M ONE Stop: 10/29/24 12:18 Last Infusion: 10/29/24 13:49 Dose: Infused Documented By: Admin: 10/29/24 11:28 Dose: 999 mls/hr Documented By: LALA Lactated Ringer's (Lactated Ringers) 500 mls @ 999 mls/hr IV .Q31M ONE Stop: 10/29/24 12:00 Last Infusion: 10/29/24 13:49 Dose: Infused Documented By: Admin: 10/29/24 09:50 Dose: 999 mls/hr Documented By: LALA Lactated Ringer's (Lactated Ringers) 500 mls @ 999 mls/hr IV .Q31M ONE Stop: 10/30/24 09:27 Last Admin: 10/30/24 09:22 Dose: 999 mls/hr Documented By: KASSANDRA(2) Lactated Ringer's (Lactated Ringers) 1,000 mls @ 999 mls/hr IV .Q1H1M ONE Stop: 10/30/24 11:55 Last Admin: 10/30/24 10:56 Dose: 999 mls/hr Documented By: KASSANDRA(2) Lactated Ringer's (Lactated Ringers) 500 mls @ 999 mls/hr IV .Q31M ONE Stop: 10/30/24 15:58 Last Admin: 10/30/24 15:44 Dose: 999 mls/hr Documented By: KASSANDRA(2) Trimethoprim/Sulfamethoxazole (5 ml/ Dextrose) 105 mls @ 105 mls/hr IV BID JESSICA Stop: 11/06/24 17:29 Last Admin: 11/04/24 09:07 Dose: 105 mls/hr Documented By: Infusion: 11/03/24 22:16 Dose: Infused Documented By: Admin: 11/03/24 21:16 Dose: 105 mls/hr Documented By: Infusion: 11/03/24 09:57 Dose: Infused Documented By: Admin: 11/03/24 08:57 Dose: 105 mls/hr Documented By: SLJonah Infusion: 11/02/24 22:33 Dose: Infused Documented By: SLJonah Admin: 11/02/24 21:33 Dose: 105 mls/hr Documented By: Infusion: 11/02/24 10:15 Dose: Infused Documented By: Admin: 11/02/24 09:15 Dose: 105 mls/hr Documented By: Infusion: 11/01/24 23:21 Dose: Infused Documented By: Admin: 11/01/24 22:21 Dose: 105 mls/hr Documented By: Infusion: 11/01/24 11:00 Dose: Infused Documented By: Admin: 11/01/24 09:34 Dose: 105 mls/hr Documented By: Infusion: 10/31/24 22:14 Dose: Infused Documented By: Admin: 10/31/24 21:14 Dose: 105 mls/hr Documented By: Infusion: 10/31/24 09:37 Dose: Infused Documented By: Admin: 10/31/24 08:37 Dose: 105 mls/hr Documented By: Infusion: 10/30/24 18:19 Dose: Infused Documented By: Admin: 10/30/24 17:19 Dose: 105 mls/hr Documented By: KASSANDRA(2) Sodium Chloride (Ns) 1,000 mls @ 999 mls/hr IV .Q1H1M ONE Stop: 11/01/24 10:25 Last Infusion: 11/01/24 12:00 Dose: Infused Documented By: Admin: 11/01/24 09:34 Dose: 999 mls/hr Documented By: KASSANDRA Magnesium Sulfate (Magnesium Sulfate Ivpb) 2 gm in 50 mls @ 25 mls/hr IV X1 ONE Stop: 11/04/24 10:59 Last Infusion: 11/04/24 12:17 Dose: Infused Documented By: Admin: 11/04/24 10:17 Dose: 25 mls/hr Documented By: PHOEBE Sodium Chloride (Ns) 500 mls @ 999 mls/hr IV .Q31M JESSICA Stop: 12/05/24 08:24 Last Admin: 11/05/24 08:45 Dose: Not Given Documented By: PHOEBE Non-Admin Reason: Cancelled by Provider Sodium Chloride (Ns) 500 mls @ 999 mls/hr IV .Q31M ONE Stop: 11/05/24 09:13 Last Admin: 11/05/24 09:18 Dose: 999 mls/hr Documented By: CARLA Insulin Human Regular (Insulin Hum Regular 1 Unit/0.01 Ml (Per Unit)) 10 unit IV X1 ONE Stop: 10/27/24 07:03 Last Admin: 10/27/24 07:54 Dose: 10 unit Documented By: MONSE Co-signed By: YASIR Ketorolac Tromethamine (Ketorolac Inj 30 Mg/Ml Vial) 15 mg IVP X1 ONE Stop: 10/27/24 11:02 Last Admin: 10/27/24 11:17 Dose: 15 mg Documented By: GM Levofloxacin (Levofloxacin 250 Mg Tablet) 500 mg PO QDAY [facility] Stop: 11/13/24 08:59 Lidocaine HCl (Lidocaine Inj Pf 1% 30 Ml Vial) Confirm Administered Dose 30 ml .ROUTE .STK-MED ONE Stop: 10/31/24 12:18 Last Admin: 10/31/24 13:21 Dose: Not Given Documented By: TOLU Non-Admin Reason: Duplicate Medication on eMAR Magnesium Oxide (Magnesium Oxide 400 Mg Tablet) 400 mg PO X1 ONE Stop: 11/03/24 09:27 Last Admin: 11/03/24 11:07 Dose: 400 mg Documented By: BRENTON Midazolam HCl (Midazolam Inj 1 Mg/Ml Vial 2 Ml) Confirm Administered Dose 2 mg .ROUTE .STK-MED ONE Stop: 10/31/24 12:17 Last Admin: 10/31/24 13:21 Dose: Not Given Documented By: DL Non-Admin Reason: Duplicate Medication on eMAR Midazolam HCl (Midazolam Inj 1 Mg/Ml Vial 2 Ml) 1 mg IV X1 ONE Stop: 10/31/24 12:44 Last Admin: 10/31/24 12:44 Dose: 1 mg Documented By: TOLU Naloxone HCl (Naloxone Inj 0.4 Mg/Ml Vial) Confirm Administered Dose 0.4 mg .ROUTE .STK-MED ONE Stop: 10/31/24 12:17 Last Admin: 10/31/24 13:21 Dose: Not Given Documented By: TOLU Non-Admin Reason: not needed Ondansetron HCl (Ondansetron Inj 2 Mg/Ml Inj 2 Ml) 4 mg IV X1 ONE; Protocol Stop: 10/31/24 11:41 Last Admin: 10/31/24 11:42 Dose: 4 mg Documented By: AT Ondansetron HCl (Ondansetron Inj 2 Mg/Ml Inj 2 Ml) Confirm Administered Dose 4 mg .ROUTE .STK-MED ONE Stop: 10/31/24 12:18 Last Admin: 10/31/24 13:21 Dose: Not Given Documented By: TOLU Non-Admin Reason: not needed Oxycodone/Acetaminophen (Oxycodone/Apap 5/325 Tablet) 1 tab PO Q6HR PRN PRN Reason: Pain 7-10 Stop: 11/02/24 09:09 Last Admin: 11/02/24 08:30 Dose: 1 tab Documented By: Admin: 11/01/24 22:21 Dose: 1 tab Documented By: Admin: 11/01/24 11:19 Dose: 1 tab Documented By: Admin: 11/01/24 04:38 Dose: 1 tab Documented By: Admin: 10/31/24 21:15 Dose: 1 tab Documented By: Admin: 10/31/24 07:57 Dose: 1 tab Documented By: Admin: 10/30/24 22:43 Dose: 1 tab Documented By: Admin: 10/30/24 04:19 Dose: 1 tab Documented By: Admin: 10/29/24 12:30 Dose: 1 tab Documented By: Admin: 10/29/24 05:34 Dose: 1 tab Documented By: Admin: 10/28/24 22:16 Dose: 1 tab Documented By: Admin: 10/28/24 10:41 Dose: 1 tab Documented By: KASSANDRA(2) Oxycodone/Acetaminophen (Oxycodone/Apap 5/325 Tablet) 1 tab PO X1 ONE Stop: 11/02/24 18:02 Last Admin: 11/02/24 18:17 Dose: 1 tab Documented By: CARLA Oxycodone/Acetaminophen (Oxycodone/Apap 5/325 Tablet) 1 tab PO Q6HR PRN PRN Reason: PAIN SCALE 7-10 (Severe Stop: 11/08/24 08:53 Last Admin: 11/03/24 11:08 Dose: 1 tab Documented By: BRENTON Potassium Chloride (Potassium Chloride 20 Meq Tabcr) 20 meq PO X1 ONE Stop: 11/02/24 07:36 Last Admin: 11/02/24 08:41 Dose: 20 meq Documented By: CARLA Trimethoprim/Sulfamethoxazole (Trimethoprim/Sulfa 160/800 Ds Tablet) 1 tab PO BID JESSICA Stop: 11/11/24 20:59 Last Admin: 11/05/24 08:56 Dose: 1 tab Documented By: Admin: 11/04/24 21:11 Dose: 1 tab Documented By: JEROMY as above Consultations Consultation(s) initiated? (list below): No Diagnosis Differential Diagnosis ED Complaint MDM: pyelonephritis, UTI, PNA, SBO, colitis, diverticulitis Most likely diagnosis given after review of the tests above:: Septic shock 2/2 UTI, PNA and/or diverticulitis. Admission Indicated Admission indicated?: indicated Explain why admission is indicated or not indicated:: Patient needs ICU admission due to septic shock, was started on Levophed in the ED due to drop in BP with MAP below 65 despite IVF resuscitation. Admission Request Was there a request for admission?: Yes Admission Attestation Admission request attestation: Discussed case with [] from Hospitalist service regarding admission. Discussed patients ED course, exam findings, labs, and radiology results. The Hospitalist [agrees,declines] to accept the patient for admission. Disposition Plan Disposition Plan: Admit Medical Decision Making MDM Narrative MDM Narrative: The patient is a 69-year-old female with a complex medical history, presenting with nausea, vomiting, and symptoms concerning for a urinary source of sepsis. Caal findings include cloudy urine from the left nephrostomy tube, suprapubic tenderness, and hemodynamic instability (MAP <65 despite fluids). Despite initial management with Zosyn and IVF, she required vasopressor support (Levophed gtt) for septic shock. Her chronic abdominal pain, history of multiple surgeries, and current high urologic risk necessitate careful multidisciplinary management. Given her worsening condition and need for ICU-level care, a decision was made to admit the patient to the ICU for continued septic shock management. Close monitoring for renal failure, further hemodynamic instability, and potential procedural interventions will be essential. Differential Diagnosis Differential Diagnosis: pyelonephritis, UTI, PNA, SBO, colitis, diverticulitis Lab Data 11/05/24 09:04 11/05/24 04:17 Labs: Lab Results 10/27/24 Range/Units 05:30 WBC 7.0 (3.6-11.0) Thou/mm3 RBC 3.90 L (4.00-5.20) Miln/mm3 Hgb 11.3 L (12.0-16.0) g/dL Hct 33.9 L (36.0-46.0) % MCV 87 (80-100) fL MCH 29.0 (25.0-35.0) pg MCHC 33.3 (31.0-37.0) g/dl RDW Std Deviation 51.6 H (36.4-46.3) fL Plt Count 408 (140-440) Thou/mm3 Neut % (Auto) 80 (37-80) % Lymph % (Auto) 11 (10-50) % [place] % (Auto) 6 (0-12) % Eos % (Auto) 2 (0-10) % Baso % (Auto) 0 (0-2.5) % Neut # (Auto) 5.6 (1.8-7.7) Thou/mm3 Lymph # (Auto) 0.8 L (1.0-4.8) Thou/mm3 [place] # (Auto) 0.4 (0.0-0.8) Thou/mm3 Eos # (Auto) 0.1 (0.0-0.5) Thou/mm3 Baso # (Auto) 0.0 (0.0-0.2) Thou/mm3 Immature Gran # (Auto) 0.05 H (0.00-0.00) Thou/mm3 Absolute Nucleated RBC 0.00 (0.00-0.00) Thou/mm3 Immature Gran % 1 H (0-0) % Nucleated RBC % 0 (0) /100 WBC PT 11.2 (9.0-12.2) Seconds INR 1.0 (0.9-1.3) Sodium 131 L (136-145) mMol/L Potassium 5.6 H (3.4-5.1) mMol/L Chloride 99 (98-107) mMol/L Carbon Dioxide 20.3 (20.0-31.0) mMol/L Anion Gap 12 (7-16) BUN 27 H (9-23) mg/dL Creatinine 2.3 H (0.6-1.3) mg/dL Estim Creat Clear Calc Not Performed. eGFR 22 L (60 - ) See Note BUN/Creatinine Ratio 12 (12-20) Ratio Glucose 142 H (74-106) mg/dL Estimated Ave Glu mg/dL 91 (80-131) mg/dL Hemoglobin A1c 4.8 (4.8-6.0) % Hgb Calculated Osmolality 269 L (275-295) Lactic Acid 1.6 (0.4-2.0) mMol/L Calcium 9.6 (8.3-10.6) mg/dL Corrected Calcium 9.6 (8.5-10.1) mg/dL Total Bilirubin 0.4 (0.3-1.2) mg/dL AST 45 H (0-34) U/L ALT 22 (10-49) U/L Alkaline Phosphatase 165 H (46-116) U/L Troponin I < 0.002 (0.0-0.045) ng/mL B-Natriuretic Peptide 67 (0-100) pg/mL Total Protein 7.3 (5.7-8.2) gm/dL Albumin 4.4 (3.4-4.8) gm/dL Globulin 2.9 (2.3-3.5) gm/dL Albumin/Globulin Ratio 1.5 (1.2-2.2) Lipase 23 (12-53) U/L Procalcitonin 1.40 H (0.0-0.49) ng/ml Ur Collection Type Catheter Urine Color Yellow (Lt Yel-Yel) Urine Clarity Turbid A (Clear/Hazy) Urine pH 6.5 (5.0-7.0) Ur Specific [place] 1.017 (1.001-1.035) Urine Protein 3+ A (Neg - Trace) Urine Glucose (UA) Negative (Negative) Urine Ketones Negative (Negative) Urine Blood 2+ A (Negative) Urine Nitrite Negative (Negative) Urine Bilirubin Negative (Negative) Urine Urobilinogen (Auto) Negative (0.0-1.0) mg/dL Ur Leukocyte Esterase Positive (Negative) Urine RBC 94 H (0-3) /hpf Urine WBC 727 H (0-5) /hpf Ur Squamous Epith Cells < 1 (0-5) /hpf Urine Bacteria Rare (None) Ur Culture Indicated? Yes Discharge Plan Plan Patient Disposition: Admit Acute Care w/in Hospital Problem List Clinical Impression: Septic shock MD Attestation MD Attestation The patient was seen by the PGY-2. I, the supervising physician, also encountered and examined the patient remaining present during the entire ER visit for consultation as needed. With the PGY 2 we formulated the analysis, management, treatment plan, medical decision making, and documentation. I agree with the plan and documentation.
[2024-10-27 06:00] LABS: Basophils % (Auto) 0 % (0-2.5); Eosinophils # (Auto) 0.1 Thou/mm3 (0.0-0.5); Eosinophils % (Auto) 2 % (0-10); Hematocrit 33.9 % (36.0-46.0); Hemoglobin 11.3 g/dL (12.0-16.0); Immature Granulocytes % (Auto) 1 % (0-0); Immature Granulocytes Auto 0.05 Thou/mm3 (0.00-0.00); Lymphocytes # (Auto) 0.8 Thou/mm3 (1.0-4.8); Lymphocytes % (Auto) 11 % (10-50); Mean Corpuscular HGB Conc 33.3 g/dl (31.0-37.0); Mean Corpuscular Volume 87 fL (80-100); Monocytes # (Auto) 0.4 Thou/mm3 (0.0-0.8); Monocytes % (Auto) 6 % (0-12); Neutrophils # (Auto) 5.6 Thou/mm3 (1.8-7.7); Neutrophils % (Auto) 80 % (37-80); Nucleated Red Blood Cell % 0 /100 WBC (0); Platelet Count 408 Thou/mm3 (140-440); RDW Standard Deviation 51.6 fL (36.4-46.3)
[2024-10-27 06:10] LABS: Prothrombin Time 11.2 Seconds (9.0-12.2)
--- NOTE | 2024-10-27 06:14 | PC.NURSE ---
PT BROUGHT TO ER FROM [facility] FOR C/O NAUSEA AND VOMITING. EMS REPORTED PT EXPRESSED TO GO TO [facility] AFTER THEY GOT TO AMBULANCE BAY. PT GOT TO ROOM 1, NOTED PT WITH HIGH HR, CHECK HQPO=356.4 ORALLY, SEPSIS ALERT CALLED, DR. STRONG MADE AWARE.
[2024-10-27 06:28] LABS: Alanine Aminotransferase 22 U/L (10-49); Albumin, Serum 4.4 gm/dL (3.4-4.8); Albumin/Globulin Ratio 1.5 (1.2-2.2); Alkaline Phosphatase 165 U/L (46-116); Anion Gap 12 (7-16); Aspartate Amino Transferase 45 U/L (0-34); BUN/Creatinine Ratio 12 Ratio (12-20); Bilirubin,Total 0.4 mg/dL (0.3-1.2); Blood Urea Nitrogen 27 mg/dL (9-23); Calcium 9.6 mg/dL (8.3-10.6); Calcium (Corrected) 9.6 mg/dL (8.5-10.1); Carbon Dioxide 20.3 mMol/L (20.0-31.0); Chloride 99 mMol/L (98-107); Creatinine (Component) 2.3 mg/dL (0.6-1.3); Globulin 2.9 gm/dL (2.3-3.5); Glucose 142 mg/dL (74-106); Lipase 23 U/L (12-53); Osmolality,Calculated 269 (275-295); Potassium 5.6 mMol/L (3.4-5.1); Sodium 131 mMol/L (136-145); Total Protein 7.3 gm/dL (5.7-8.2); Troponin I < 0.002 ng/mL (0.0-0.045); eGFR 22 See Note
[2024-10-27] MEDS: ACETAMINOPHEN 325 MG TABLET 650 MG PO (06:33)
[2024-10-27 06:39] LABS: B-Type Natriuretic Peptide 67 pg/mL (0-100)
[2024-10-27 06:56] LABS: Bacteria,Urine Rare; Bilirubin,Urine Negative (Negative); Blood,Urine 2+ (Negative); Color,Urine Yellow (Lt Yel-Yel); Glucose, Urine Negative (Negative); Ketones,Urine Negative (Negative); Leukocyte Esterase,Urine Positive (Negative); Nitrite,Urine Negative (Negative); PH,Urine 6.5 (5.0-7.0); Protein,Urine 3+ (Neg - Trace); RBC,Urine 94 /hpf (0-3); Specific Gravity,Urine 1.017 (1.001-1.035); Squamous Epithelial Cell,Urine < 1 /hpf (0-5); Urobilinogen,Urine Negative mg/dL (0.0-1.0); WBC,Urine 727 /hpf (0-5)
[2024-10-27 06:57] LABS: Clarity,Urine Turbid (Clear/Hazy); Culture Indicated,Urine Yes
--- NOTE | 2024-10-27 07:01 | XR_ITS ---
Examination: CT abdomen and pelvis without contrast. Coronal 3-D reconstructions. Sagittal 2-D reconstructions. Date and time of exam:October 27, 2024 0826 hours INDICATIONS: Sepsis today, generalized abdominal pain, diagnosis endometrial carcinoma CTDI: vol (mGy): 13.2 DLP: (mGycm): 809 Technique: Axial images of the abdomen have been obtained, 3 mm slice thickness Intravenous contrast material has not been administered. Low dose protocols were performed. One or more of the following dose reduction techniques were used; automated exposure control, adjustment of the mA and/or KV according to patient size, use of iterative reconstruction technique. Findings: Partial visualization pericardial effusion measuring up to 16 mm with mild enlargement cardiac contour Hepatomegaly 19 cm Gallbladder not visualized No splenic or pancreatic mass Left percutaneous nephrostomy satisfactory position, mild left hydronephrosis, 12 mm calculus in the left renal pelvis 5 mm right renal calculus, right percutaneous nephrostomy satisfactory position no hydronephrosis Colonic diverticulosis Early inflammatory change about sigmoid diverticula axial image 166 Abundant stool in the rectosigmoid Anteverted uterus Moderate osteopenia Bladder contracted around the urinary Bal catheter IMPRESSION: Bilateral renal calculi Bilateral percutaneous nephrostomy tubes satisfactory position Mild left hydronephrosis Early sigmoid diverticulitis, no peridiverticular abscess
[2024-10-27] MEDS: CALCIUM CHLORIDE 10% INJ 10 ML SYRG IV (07:51)
[2024-10-27] MEDS: DEXTROSE 50%-WATER INJ 50 ML SYRINGE IV (07:54)
[2024-10-27] MEDS: INSULIN HUM REGULAR 1 UNIT/0.01 ML (PER UNIT) 10 UNIT IV (07:54)
--- NOTE | 2024-10-27 11:11 | PC.CC ---
Addendum entered by Sukhwinder Vasquez RN 10/27/24 12:52: 1220 Dr. Stokes informed me to cancel the transfer, pt is being admitted to ICU. Original Note: [address] Stokes that pt need to be transferred for sepsis secondary to UTI. Pt has bilateral nephrostomy tubes. I asked if me can manage the pt here at [facility]. Per Dr. Stokes stated he spoke to hospitalist team and they stated pt has tabitha nephrostomy tubes and need transfer if pt needs urology but therre is no urology need at this time. Pt urologist is Dr. Madsen at [facility].
--- NOTE | 2024-10-27 11:13 | PC.NURSE ---
PT HAD A BM AT THIS TIME; PT GIVEN PERINEAL CARE AT THIS TIME WITH WARM BATH CLOTHS; PT PLACED IN NEW CHUCKS AND NEW BRIEFS. OLD WOUNDS NOTED TO PT'S SACRUM AREA; ALLEVYN FOAM DRESSING PLACED FOR PROTECTION.
[2024-10-27] MEDS: KETOROLAC INJ 30 MG/ML VIAL 15 MG IVP (11:17)
[2024-10-27] MEDS: SODIUM CHLORIDE 0.9% 500 ML 500 ML 999 ML IV ×2 (11:18→12:34)
--- NOTE | 2024-10-27 14:07 | PC.CC ---
Patient is a 69 year-old female who presents to the hospital for Urosepsis. Deborah LOVELL made [id number] contact with patient. ASW introduced self, role, and reason for visit. Patient appeared alert and oriented to self, location, and situation. Patient was pleasant and engaged in initial assessment. Patient reports that in the event she is unable to make her own medical decision she appoints her son Tim Hughes to make her medication decisions. Patient is currently residing at [facility]. Per patient, she is bed bound and the only time she is able to ambulate is when PT is working with her at the facility. Patient reports she is max assist with all ADLs. Patient receives primary care with Prasanna Morrell. Upon discharge the patient plans to return back to [facility]. client services representative to follow up with any discharge needs.
[2024-10-27] MEDS: RINGERS LACTATED 1000 ML 1,000 ML 999 ML IV (14:14)
--- NOTE | 2024-10-27 14:42 | ESHP_ITS ---
<Statement entered by Kelsey Robles MD - 10/28/24 07:50> TOTAL CC TIME: 45 MIN I saw and evaluated the patient. I reviewed the resident?s note and agree with findings and plan as documented in the resident?s note. Upon my evaluation, this patient had a high probability of imminent or life- threatening deterioration due to septic shock, which required my direct attention, intervention, and personal management. This time is exclusive of time spent on procedures, which are documented separately if performed. start levophed to maintain MAP goal of >=65 complete LR boluses recheck IVC to confirm no evid to support contd fluid resuscitation cont zosyn - attempt to retrieve records from [facility] to evluate past micro data <Statement entered by Jaky Deng MD - 10/27/24 18:15> Patient is a 69-year-old female with past medical history of endometrial cancer on chemo and radiotherapy, history of recurrent blood transfusion due to blood loss anemia from uterine bleeding, history of COPD, diabetes, bilateral obstructive nephrolithiasis status post bilateral nephrostomy was admitted to ICU due to septic shock. Patient received multiple boluses, however MAP was below 65, at that point patient started on Levophed. Chest x-ray was positive for PNA as well as UA was consistent for UTI. Patient will be admitted to ICU for septic shock treatment and management, continue supportive vasopressors, cover with antibiotics, will follow-up with the cultures. I personally saw and examined the patient and discussed the assessment and plan with the entire medicine team, including my attending Jaky Ayala M.D. PGY-2 Disclaimer: Despite multiple revisions, due to the dictation software being used, the document bellow may not be free of grammatical errors including phonetic/typographic errors. However, this does not deter from our commitment to providing health care in the patient's best interest in mind. Documentation for date of: 10/27/24 HPI History of Present Illness History of present illness: The patient is a 69-year-old female with a past medical history of endometrial cancer on chemo and radiotherapy, history of recurrent blood transfusions due to blood loss anemia from uterine bleeding, COPD, diabetes, unspecified colitis and bilateral obstructing nephrolithiasis status post bilateral nephrostomy who presented to the ED on 10/27/2024 with complaints of nausea and vomiting in the past 2 days. Per patient's, she has some bouts of nausea and vomiting that has started since commencement of chemotherapy, however in the last 2 days has had multiple episodes per day and has been unable to tolerate any meals or water. She also reports abdominal pain, but attributes this to multiple abdominal surgeries in the past with hernia repair and mesh as well as cholecystectomy and ovarian cyst removal. In September, the patient had nephrostomy tubes placed at [facility] when she presented with abdominal pain and was noted to have bilateral renal calculi as well as a urinary tract infection. She does report that she occasionally has diarrhea as well as constipation depending on the chemo radiotherapy days but in the last 2 days had good bowel movements She denies subjective fever or any upper respiratory tract infections. ED course: In the ED, patient was initially afebrile, developed a temperature of 101.4, saturating 98% on room air, tachycardic with heart rate in the 130s and blood pressure borderline. Subsequently, blood pressure was seen to be lower. The patient received 2 L of fluid and MAP was consistently lower than 65. Significant labs, hemoglobin 11.3, sodium 131, potassium 5.6, BUN 27, creatinine 2.3 with an EGFR 22, glucose 142, AST 45, ALP 145, Pro-Marcial 1.40, normal lactic acid at 1.5. Analysis was done which showed turbid urine with 3+ protein close positive blood, pyuria and [address] abdomen showed bilateral renal calculi with nephrostomy tubes in good position and mild left hydronephrosis. Chest x-ray showed obscured left lower lobe. Patient is admitted to the ICU for septic shock secondary to urinary tract infections. Review of Systems Review of Systems Narrative Review of Systems: GENERAL: Denies fevers/chills or diaphoresis. HEENT: Denies headache or visual/hearing changes. Denies nasal discharge. NEURO: Denies unusual weakness or difficulty speaking. CARDIO: Denies chest pain or palpitations. PULM: Denies SOB, coughing, or wheezing. GI: Admits abdominal pain, nausea, vomiting. Denies constipation or diarrhea now, having bowel movements URO: Denies burning/itching/pain/urinary changes. MSK/EXT/SKIN: Denies joint/skeletal/muscle pain, issues/changes in upper or lower extremities, itchiness, or superficial pain. PSYCH: Cooperative, pleasant mood & affect. Exam Vital Signs Temp Pulse Resp BP Pulse Ox O2 Del Method 97.9 F 93 16 86/55 L 100 Room Air 10/27/24 12:39 10/27/24 12:39 10/27/24 12:39 10/27/24 12:39 10/27/24 12:39 10/27/24 12:39 Narrative Exam GENERAL: AAOX3 NEURO: AN/SQQ 89(V)15 SONAR SYSTEM JOURNEYMAN grossly intact, moves extremities x4 HEENT: Moist mucosa. Eyes open, symmetrical, & clear CARDIO: No chest pain on palpation. Heart RRR, no obvious murmurs PULM: No noted coughing/dyspnea. Lungs CTA B/L, no R/W/R GI: Abdomen soft, nondistended, tender to palpation in left and right lumbar quadrants. BSx4 URO/RUBBER CUTTER:: Bilateral nephrostomy tube in place SKIN/MSK/EXT: No wounds/rashes/edema/amputations, no pain on palpation. Pedal pulses present B/L Results: Labs 10/27/24 05:30 10/27/24 16:50 Labs: Short CBC 10/27/24 Range/Units 05:30 WBC 7.0 (3.6-11.0) Thou/mm3 Hgb 11.3 L (12.0-16.0) g/dL Hct 33.9 L (36.0-46.0) % Plt Count 408 (140-440) Thou/mm3 BMP 10/27/24 05:30 Sodium 131 L Potassium 5.6 H Chloride 99 Carbon Dioxide 20.3 BUN 27 H Creatinine 2.3 H Glucose 142 H Calcium 9.6 Cardiac Enzymes 10/27/24 Range/Units 05:30 Troponin I < 0.002 (0.0-0.045) ng/mL Liver Function 10/27/24 Range/Units 05:30 Total Bilirubin 0.4 (0.3-1.2) mg/dL AST 45 H (0-34) U/L ALT 22 (10-49) U/L Alkaline Phosphatase 165 H (46-116) U/L Albumin 4.4 (3.4-4.8) gm/dL Urine 10/27/24 Range/Units 05:30 Urine Color Yellow (Lt Yel-Yel) Urine Clarity Turbid A (Clear/Hazy) Urine pH 6.5 (5.0-7.0) Ur Specific [place] 1.017 (1.001-1.035) Urine Protein 3+ A (Neg - Trace) Urine Glucose (UA) Negative (Negative) Quality Measures Quality Measures none Advance care planning discussed with:: patient Medications Home Medications and Allergies Home Medications ?Medication ?Instructions ?Recorded ?Confirmed ?Type ascorbic acid (vitamin C) 500 mg 500 mg PO BID #0 tabs 08/15/15 06/14/23 History tablet (Vitamin C) cholecalciferol (vitamin D3) 25 1,000 unit PO QDAY #0 tabs 08/15/15 06/14/23 History mcg (1,000 unit) capsule (Vitamin D3) aspirin 81 mg tablet,delayed 81 mg PO QDAY 07/01/19 History release cyanocobalamin (vitamin B-12) 1,000 mcg PO QDAY 06/14/23 History 1,000 mcg tablet (Vitamin B-12) glucosamine HCl 500 mg tablet 1,000 mg PO QAM 07/01/19 06/14/23 History albuterol 90 mcg/actuation aerosol 90 mcg inhalation Q 6HRPRN PRN 04/30/23 06/14/23 History inhaler Wheezing sitagliptin phosphate 100 mg 100 mg PO QDAY 04/30/23 1 08/14/22 History tablet (Januvia) diphenhydramine HCl 25 mg tablet 25 mg PO Q12HR PRN It lu 06/14/23 06/14/23 History (Benadryl Allergy) ipratropium 18 mcg-albuterol 103 2 spray inhalation Q6 HR PRN 06/14/23 06/14/23 History mcg/actuation aerosol inhaler Shortness Of Breath Or W heezing magnesium oxide 400 mg PO QDAY 06/14/2306/03 History melatonin 5 mg tablet 5 mg PO HS PRN Sleep 3 06/14/23 History ondansetron HCl 4 mg tablet 4 mg PO Q6H PRN Nausea 07/2506/14/23 History pantoprazole 40 mg tablet,delayed 40 mg PO QDAY 06/14/23 History release (Protonix) Allergies Allergy/AdvReac Type Severity Reaction Status Date / Time coconut oil Allergy Severe Rash Verified 07/03/22 08:59 Sulfa (Sulfonamide Allergy Severe Itching Verified 04/28/23 23:08 Antibiotics) clindamycin Allergy Diarrhea Verified 10/27/24 15:44 Visit Medications Acetaminophen (Acetaminophen 325 Mg Tablet) 650 mg PO Q4HR PRN PRN Reason: PAIN SCALE 1-3 (mild Stop: 11/26/24 12:56 Acetaminophen (Acetaminophen Supp 650 Mg Supp) 650 mg MD Q4HR PRN PRN Reason: PAIN SCALE 1-3 (mild Stop: 11/26/24 12:56 Al Hydrox/Mg Hydrox/Simethicone (Mg Hyd/Al Hyd/Bety (Maalox Reg) Susp 30 Ml Udc) 30 ml PO Q4HR PRN PRN Reason: Heartburn or Upset Stomach Stop: 11/26/24 12:56 Norepinephrine/Dextrose (Levophed In D5w 8mg/250ml) 8 mg in 250 mls @ 8.066 mls/hr IV .Q24H PRN; Protocol PRN Reason: PER PROTOCOL Stop: 11/26/24 12:34 Piperacillin/Tazobactam/Dextrose (Zosyn) 3.375 gm in 50 mls @ 100 mls/hr IV Q6HR JESSICA Stop: 11/03/24 13:03 Magnesium Hydroxide (Milk Of Magnesia Susp 30 Ml Udc) 30 ml PO QDAY PRN PRN Reason: CONSTIPATION Stop: 11/26/24 12:56 Nitroglycerin (Nitroglycerin 0.4 Mg Subl Btl #25) 0.4 mg SL Q5MIN PRN PRN Reason: CHEST PAIN Rivaroxaban (Rivaroxaban 10 Mg Tablet) 10 mg PO X1 JESSICA Stop: 11/26/24 17:59 Discontinued Medications Acetaminophen (Acetaminophen 325 Mg Tablet) 650 mg PO X1 ONE Stop: 10/27/24 06:18 Last Admin: 10/27/24 06:33 Dose: 650 mg Calcium Chloride (Calcium Chloride 10% Inj 10 Ml Syrg) 10 ml IV X1 ONE Stop: 10/27/24 07:03 Last Admin: 10/27/24 07:51 Dose: 10 ml Dextrose (Dextrose 50%-Water Inj 50 Ml Syringe) 50 ml IV X1 ONE Stop: 10/27/24 07:04 Last Admin: 10/27/24 07:54 Dose: 50 ml Sodium Chloride (Ns) 1,000 mls @ 999 mls/hr IV .Q1H1M ONE Stop: 10/27/24 06:25 Last Infusion: 10/27/24 06:42 Dose: Infused Piperacillin/Tazobactam/Dextrose (Zosyn) 3.375 gm in 50 mls @ 100 mls/hr IV X1 ONE Stop: 10/27/24 05:57 Last Infusion: 10/27/24 06:28 Dose: Infused Sodium Chloride (Ns) 1,000 mls @ 999 mls/hr IV .Q1H1M ONE Stop: 10/27/24 06:28 Last Infusion: 10/27/24 07:37 Dose: Infused Sodium Chloride (Ns) 500 mls @ 999 mls/hr IV .Q31M ONE Stop: 10/27/24 11:32 Last Infusion: 10/27/24 12:12 Dose: Infused Sodium Chloride (Ns) 500 mls @ 999 mls/hr IV .Q31M ONE Stop: 10/27/24 12:47 Last Admin: 10/27/24 12:34 Dose: 999 mls/hr Lactated Ringer's (Lactated Ringers) 1,000 mls @ 999 mls/hr IV .Q1H1M ONE Stop: 10/27/24 14:03 Last Admin: 10/27/24 14:14 Dose: 999 mls/hr Piperacillin/Tazobactam/Dextrose (Zosyn) 3.375 gm in 50 mls @ 100 mls/hr IV X1 ONE Stop: 10/27/24 14:29 Insulin Human Regular (Insulin Hum Regular 1 Unit/0.01 Ml (Per Unit)) 10 unit IV X1 ONE Stop: 10/27/24 07:03 Last Admin: 10/27/24 07:54 Dose: 10 unit Ketorolac Tromethamine (Ketorolac Inj 30 Mg/Ml Vial) 15 mg IVP X1 ONE Stop: 10/27/24 11:02 Last Admin: 10/27/24 11:17 Dose: 15 mg Assessment & Plan Plan Summary: The patient is a 69-year-old female with a past medical history of endometrial cancer on chemo and radiotherapy, history of recurrent blood transfusions due to blood loss anemia from uterine bleeding, COPD, diabetes, unspecified colitis and bilateral obstructing nephrolithiasis status post bilateral nephrostomy who presented to the ED on 10/27/2024 with complaints of nausea and vomiting in the past 2 days Immiticide for management of septic shock secondary to UTI. Neuro No active conditions Cardiovascular #Septic shock The patient presented with nausea and vomiting that have been going on for the last 2 days. Admission, patient was febrile with a temperature of 101.4, tachycardic with heart rate in the 130s. UA showed pyuria and rare bacteria and negative for RBCs. The patient does have a nephrostomy tube and reports having multiple urinary tract infections. Lactic acid was normal with slightly elevated procalcitonin at 1.4 She received 2 L of fluids in the ED but was consistently hypotensive. ICU consulted for pressor support. Will start patient on Levophed. Plan: -Admit to ICU -Levophed, titrate for MAP greater than 65 Respiratory #History of COPD Per chart review, the patient has a history of COPD and is on albuterol inhalers at home. Denies cough, sputum production or any upper respiratory tract symptoms. On admission, she is saturating 97% on room air. On examination, no wheezing and rhonchi, lungs are clear to auscultation bilaterally. GI #Transaminitis Admission, minimal AST elevation at 45, normal ALT and ALP of 165. T. bili normal. Will continue to trend LFTs. Renal #Acute kidney injury, prerenal The patient reports having multiple episodes of vomiting in the last 2 days as well as decreased oral intake. Admission, creatinine at 2.3, baseline about 1.0. She is having decent urine output is seen with nephrostomy tube. Received 3.5 L of IVF's in the ED. Plan: -Continue to monitor renal panel -Avoid nephrotoxic medications -Renally dose medications #Hyponatremia #Hyperkalemia Admitting labs showed sodium of 131 with potassium of 5.6. Patient does report having multiple episodes of vomiting. Hyponatremia is hypoosmolar. She received 10 units of IV insulin in the ED as well as 3.5 L of IV fluids including normal saline and LR. Plan: -Repeat renal function panel Urology #Obstructive nephrolithiasis status post nephrostomy tube #Urinary tract infection Per patient's, about a month ago due to recurrent urinary tract infections and bilateral renal calculi, she had bilateral nephrostomy tube placed in [facility]. Urinalysis on this admission significant for pyuria. The patient has been started on IV Zosyn. Plan: -Continue IV Zosyn -Pending cultures Endocrinology #History of type II DM Patient has a history of diabetes and is on Januvia at home. Last A1c done about 4 months ago was 5.9. On admission, glucose was 142. Plan: -Will hold off on insulin regimen for now. -Glucose check every 6 hours -A1c Hematology #Anemia Hemoglobin at 11.3, stable and significant better than patient's baseline, likely hemoconcentration. Health maintenance: Dispo: ICU for septic shock secondary to urosepsis Diet: NPO GI: Pantoprazole DVT: Xarelto Bal: In situ with bilateral nephrostomy tubes Lines: Peripheral, Port-A-Cath Med Rec: Pending, f/u Code: Full Case was discussed with Dr Deng PGY-2 and attending physician, Dr Margaret Flynn MD PGY-1 Disclaimer: This note was dictated by speech recognition. Minor errors in paper mill superintendent may be present due to voice recognition software.
[2024-10-27] MEDS: PANTOPRAZOLE INJ 40 MG VIAL IV (15:45)
[2024-10-27] MEDS: Norepinephrine/D5W 8mg/250ml 8 MG/250 ML BAG 8.066 MG IV (15:47)
--- NOTE | 2024-10-27 17:06 | PC.NURSE ---
BRIEF CHANGED, PATIENT NOTED TO HAVE LARGE BOWEL MOVEMENT. PATIENT NOTED WITH BLANCHABLE REDNESS TO SACRUM, GROWTH TO PERIANAL AREA WITH OPEN AREA TO GROWTH. PATIENT REPORTS THAT GROWTH IS A CYST AND THAT SHE HAD A WOUND ON CYST.
[2024-10-27 17:13] LABS: Glucose Estimated Average 91 mg/dL (80-131); Hemoglobin A1C 4.8 % Hgb (4.8-6.0)
[2024-10-27 17:40] LABS: Albumin, Serum 3.3 gm/dL (3.4-4.8); Anion Gap 10 (7-16); BUN/Creatinine Ratio 14 Ratio (12-20); Blood Urea Nitrogen 30 mg/dL (9-23); Calcium 8.7 mg/dL (8.3-10.6); Calcium (Corrected) 9.3 mg/dL (8.5-10.1); Carbon Dioxide 20.1 mMol/L (20.0-31.0); Chloride 107 mMol/L (98-107); Creatinine (Component) 2.2 mg/dL (0.6-1.3); Glucose 122 mg/dL (74-106); Osmolality,Calculated 281 (275-295); Potassium 4.3 mMol/L (3.4-5.1); Sodium 137 mMol/L (136-145); eGFR 24 See Note
[2024-10-28] VITALS (106 sets, daily range): BP systolic 83–151; BP diastolic 43–130; PULSE 70–119; RESP 14–92; TEMP 36.3–36.6; O2SAT 88–100; BMI 34.9
[2024-10-28] MEDS: PIPER/TAZO 3.375 GM PREMIX 3.375 GM/50 ML BAG IV ×3 (05:44→22:19)
[2024-10-28 05:58] LABS: Basophils % (Auto) 0 % (0-2.5); Eosinophils # (Auto) 0.4 Thou/mm3 (0.0-0.5); Eosinophils % (Auto) 8 % (0-10); Hematocrit 27.2 % (36.0-46.0); Hemoglobin 8.9 g/dL (12.0-16.0); Immature Granulocytes % (Auto) 1 % (0-0); Immature Granulocytes Auto 0.04 Thou/mm3 (0.00-0.00); Lymphocytes # (Auto) 0.6 Thou/mm3 (1.0-4.8); Lymphocytes % (Auto) 11 % (10-50); Mean Corpuscular HGB Conc 32.7 g/dl (31.0-37.0); Mean Corpuscular Hemoglobin 28.9 pg (25.0-35.0); Mean Corpuscular Volume 88 fL (80-100); Monocytes # (Auto) 0.4 Thou/mm3 (0.0-0.8); Monocytes % (Auto) 8 % (0-12); Neutrophils # (Auto) 3.6 Thou/mm3 (1.8-7.7); Neutrophils % (Auto) 71 % (37-80); Nucleated Red Blood Cell % 0 /100 WBC (0); Platelet Count 332 Thou/mm3 (140-440); RDW Standard Deviation 52.7 fL (36.4-46.3); Red Blood Count 3.08 Miln/mm3 (4.00-5.20)
[2024-10-28 06:35] LABS: Alanine Aminotransferase 14 U/L (10-49); Albumin, Serum 3.5 gm/dL (3.4-4.8); Albumin/Globulin Ratio 1.5 (1.2-2.2); Alkaline Phosphatase 125 U/L (46-116); Anion Gap 12 (7-16); Aspartate Amino Transferase 15 U/L (0-34); BUN/Creatinine Ratio 15 Ratio (12-20); Bilirubin,Total 0.4 mg/dL (0.3-1.2); Blood Urea Nitrogen 32 mg/dL (9-23); Calcium 9.1 mg/dL (8.3-10.6); Calcium (Corrected) 9.5 mg/dL (8.5-10.1); Carbon Dioxide 20.2 mMol/L (20.0-31.0); Chloride 107 mMol/L (98-107); Creatinine (Component) 2.2 mg/dL (0.6-1.3); Estimated Creatinine Clearance 25.6 mL/min (>60); Globulin 2.4 gm/dL (2.3-3.5); Glucose 126 mg/dL (74-106); Osmolality,Calculated 286 (275-295); Potassium 4.6 mMol/L (3.4-5.1); Sodium 139 mMol/L (136-145); Total Protein 5.9 gm/dL (5.7-8.2); eGFR 24 See Note
[2024-10-28] MEDS: PANTOPRAZOLE INJ 40 MG VIAL IV (08:23)
--- NOTE | 2024-10-28 10:28 | ESPR_ITS ---
<Statement entered by Kelsey Robles MD - 10/29/24 10:22> TOTAL CC TIME: 45 MIN I saw and evaluated the patient. I reviewed the resident?s note and agree with findings and plan as documented in the resident?s note. Upon my evaluation, this patient had a high probability of imminent or life- threatening deterioration due to septic shock, WARREN on chronic kidney disease which required my direct attention, intervention, and personal management. This time is exclusive of time spent on procedures, which are documented separately if performed. Received 4 L of fluid, may require additional IV fluid. Will reevaluate with ultrasound. Weaning Levophed. Cultures remain negative to date, continue broad-spectrum antibiotics and follow-up final results. Patient reports improvement in nausea and vomiting. <Statement entered by Melony Naranjo MD - 10/28/24 11:11> Patient was examined bedside this morning, she is still in 0.07 of levophed , will do bedside US and see her ivc and decide fluid accordingly. restarted her home pain medication and started her on diet . will continue antibiotics , pending cultures, I discussed with and supervised my co-resident involved in the care of this patient. I agree with the assessment and plan as documented above. Melony Naranjo,PGY-3 Disclaimer: Despite multiple revisions, due to the dictation software being used, the document below may not be free of grammatical errors including phonetic/typographic errors. However, this does not deter from our commitment to providing health care in the patient's best interest in mind. Documentation for date of: 10/28/24 Subjective Subjective Interval history: Patient seen and examined at bedside. Acute overnight events. At bedside today, patient reports some pain in her knees and hips as well as some discomfort in the abdomen. Other than that, nausea and vomiting since admission. For septic shock, she was started on Levophed and at bedside is currently on 0.07, note that she received a total of 4 L of fluids since admission. With a bedside ultrasound, check patient's IVC for collapsibility and evaluate fluid requirements. Labs reviewed, creatinine 2.2 today, minimally improved from yesterday but patient had good urine output about 1.6 L since admission. Currently on IV Zosyn for urosepsis, nephrostomy tubes inspected, no pus seen. Will continue IV Zosyn, pending urine and blood cultures. Exam Vital Signs Temp Pulse Resp BP Pulse Ox O2 Del Method 97.8 F 84 26 H 117/63 98 Room Air 10/28/24 04:00 10/28/24 08:30 10/28/24 08:30 10/28/24 08:30 10/28/24 08:30 10/27/24 17:16 Narrative Exam GENERAL: AAOX3 NEURO: POOL NURSE grossly intact, moves extremities x4 HEENT: Moist mucosa. Eyes open, symmetrical, & clear CARDIO: No chest pain on palpation. Heart RRR, no obvious murmurs PULM: No noted coughing/dyspnea. Lungs CTA B/L, no R/W/R GI: Abdomen soft, nondistended, tender to palpation in left and right lumbar quadrants. BSx4 URO/CLUBHOUSE MANAGER:: Bilateral nephrostomy tube in place SKIN/MSK/EXT: No wounds/rashes/edema/amputations, no pain on palpation. Pedal pulses present B/L Objective Labs 10/28/24 04:56 10/28/24 04:56 Labs: Laboratory Results - last 24 hr 10/27/24 10/27/24 10/28/24 05:30 16:50 04:56 WBC 5.0 RBC 3.08 L Hgb 8.9 L D Hct 27.2 L MCV 88 MCH 28.9 MCHC 32.7 RDW Std Deviation 52.7 H Plt Count 332 D Neut % (Auto) 71 Lymph % (Auto) 11 [place] % (Auto) 8 Eos % (Auto) 8 Baso % (Auto) 0 Neut # (Auto) 3.6 Lymph # (Auto) 0.6 L [place] # (Auto) 0.4 Eos # (Auto) 0.4 Baso # (Auto) 0.0 Immature Gran # (Auto) 0.04 H Absolute Nucleated RBC 0.00 Immature Gran % 1 H Nucleated RBC % 0 Sodium 137 139 Potassium 4.3 D 4.6 Chloride 107 107 Carbon Dioxide 20.1 20.2 Anion Gap 10 12 BUN 30 H 32 H Creatinine 2.2 H 2.2 H Estim Creat Clear Calc Not Performed. 25.6 L eGFR 24 L 24 L BUN/Creatinine Ratio 14 15 Glucose [address] Glu mg/dL 91 Hemoglobin A1c 4.8 Calculated Osmolality 281 286 Calcium 8.7 9.1 Corrected Calcium 9.3 9.5 Phosphorus 5.0 Total Bilirubin 0.4 AST 15 ALT 14 Alkaline Phosphatase 125 H D Total Protein 5.9 Albumin 3.3 L D 3.5 Globulin 2.4 Albumin/Globulin Ratio 1.5 Quality Measures Quality Measures none Advance care planning discussed with:: patient Assessment & Plan Assessment Current Active Medications: Generic Name Dose Route Start Last Admin Trade Name Freq PRN Reason Stop Dose Admin Acetaminophen 650 mg 10/27/24 12:57 Acetaminophen 325 Mg Tablet PO 11/26/24 12:56 Q4HR PRN PAIN SCALE 1-3 (mild Acetaminophen 650 mg 10/27/24 12:57 Acetaminophen Supp 650 Mg Supp RI 11/26/24 12:56 Q4HR PRN PAIN SCALE 1-3 (mild Hydrocodone Bitart/Acetaminophen 1 tab 10/28/24 09:17 Hydrocodone/Apap 5/325 Tablet PO 11/02/24 09:16 Q6HR PRN Pain 4-6 Al Hydrox/Mg Hydrox/Simethicone 30 ml 10/27/24 12:57 Mg Hyd/Al Hyd/Bety (Maalox Reg) Susp 30 Ml Udc PO 11/26/24 12:56 Q4HR PRN Heartburn or Upset Stomach Norepinephrine/Dextrose 8 mg in 250 mls @ 8.066 mls/hr 10/27/24 12:35 10/28/24 08:32 Levophed In D5w 8mg/250ml IV 11/26/24 12:34 0 mcg/kg/min .Q24H PRN 0.05 mls/hr PER PROTOCOL Titration Protocol 0.05 MCG/KG/MIN Piperacillin/Tazobactam/Dextrose 3.375 gm in 50 mls @ 12.5 mls/hr 10/27/24 22:00 10/28/24 05:44 Zosyn IV 11/03/24 21:59 12.5 mls/hr Q8HR JESSICA Administration Magnesium Hydroxide 30 ml 10/27/24 12:57 Milk Of Magnesia Susp 30 Ml Udc PO 11/26/24 12:56 QDAY PRN CONSTIPATION Nitroglycerin 0.4 mg 10/27/24 12:57 Nitroglycerin 0.4 Mg Subl Btl #25 SL Q5MIN PRN CHEST PAIN Oxycodone/Acetaminophen 1 tab 10/28/24 09:10 Oxycodone/Apap 5/325 Tablet PO 11/02/24 09:09 Q6HR PRN Pain 7-10 Pantoprazole Sodium 40 mg 10/27/24 15:45 10/28/24 08:23 Pantoprazole Inj 40 Mg Vial IV 11/26/24 15:44 40 mg QDAY JESSICA Administration Rivaroxaban 10 mg 10/27/24 18:00 Rivaroxaban 10 Mg Tablet PO 11/26/24 17:59 X1 JESSICA Plan Summary: The patient is a 69-year-old female with a past medical history of endometrial cancer on chemo and radiotherapy, history of recurrent blood transfusions due to blood loss anemia from uterine bleeding, COPD, diabetes, unspecified colitis and bilateral obstructing nephrolithiasis status post bilateral nephrostomy who presented to the ED on 10/27/2024 with complaints of nausea and vomiting in the past 2 days Immiticide for management of septic shock secondary to UTI. Neuro No active conditions Cardiovascular #Septic shock The patient presented with nausea and vomiting that have been going on for the last 2 days. Admission, patient was febrile with a temperature of 101.4, tachycardic with heart rate in the 130s. UA showed pyuria and rare bacteria and negative for RBCs. The patient does have a nephrostomy tube and reports having multiple urinary tract infections. Lactic acid was normal with slightly elevated procalcitonin at 1.4 She received 2 L of fluids in the ED but was consistently hypotensive. ICU consulted for pressor support. Will start patient on Levophed. 10/28/2024- currently on Levophed 0.07. Received a total of 4 L of IV fluid will evaluate for necessity of more IV fluids. Plan: -Bedside ultrasound, evaluate fluid requirement -Continue to titrate Levophed, titrate for MAP greater than 65 Respiratory #History of COPD Per chart review, the patient has a history of COPD and is on albuterol inhalers at home. Denies cough, sputum production or any upper respiratory tract symptoms. On admission, she is saturating 97% on room air. On examination, no wheezing and rhonchi, lungs are clear to auscultation bilaterally. GI #Transaminitis Admission, minimal AST elevation at 45, normal ALT and ALP of 165. T. bili normal. Will continue to trend LFTs. Renal #Acute kidney injury, prerenal The patient reports having multiple episodes of vomiting in the last 2 days as well as decreased oral intake. Admission, creatinine at 2.3, baseline about 1.0. She is having decent urine output is seen with nephrostomy tube. Received 3.5 L of IVF's in the ED. 10/28/2024-very minimal movement in creatinine to 2.2 today, good urine output 1.6 L. Will evaluate further comments and give more IV fluids if necessary. Plan: -Continue to monitor renal panel -Avoid nephrotoxic medications -Renally dose medications #Hyponatremia-resolved #Hyperkalemia-resolved Admitting labs showed sodium of 131 with potassium of 5.6. Patient does report having multiple episodes of vomiting. Hyponatremia is hypoosmolar. She received 10 units of IV insulin in the ED as well as 3.5 L of IV fluids including normal saline and LR. Urology #Obstructive nephrolithiasis status post nephrostomy tube #Urinary tract infection Per patient's, about a month ago due to recurrent urinary tract infections and bilateral renal calculi, she had bilateral nephrostomy tube placed in [facility]. Urinalysis on this admission significant for pyuria. The patient has been started on IV Zosyn. Plan: -Continue IV Zosyn -Pending cultures Endocrinology #History of type II DM Patient has a history of diabetes and is on Januvia at home. Last A1c done about 4 months ago was 5.9. On admission, glucose was 142. Plan: -Will hold off on insulin regimen for now. -Glucose check every 6 hours -A1c Hematology #Anemia Hemoglobin at 11.3, stable and significant better than patient's baseline, likely hemoconcentration. Health maintenance: Dispo: ICU for septic shock secondary to urosepsis Diet: Regular GI: Pantoprazole DVT: Xarelto Bal: In situ with bilateral nephrostomy tubes Lines: Peripheral, Port-A-Cath Med Rec: Pending, f/u Code: Full Case was discussed with Dr Naranjo PGY-3 and attending physician, Dr Margaret Flynn MD PGY-1 Disclaimer: This note was dictated by speech recognition. Minor errors in sharepoint web developer may be present due to voice recognition software.
[2024-10-28] MEDS: oxyCODONE/APAP 5/325 TABLET 1 TAB PO ×2 (10:41→22:16)
[2024-10-28] MEDS: ONDANSETRON INJ 2 MG/ML INJ 2 ML 4 MG IV ×2 (10:41→22:12)
--- NOTE | 2024-10-28 12:30 | CHAP ---
Patient was visited by the [employer] Volunteer who prayed for them. (Volunteer was in the hospital from 09:15-12:30).
[2024-10-28] MEDS: Norepinephrine/D5W 8mg/250ml 8 MG/250 ML BAG IV (13:44)
[2024-10-29] VITALS (113 sets, daily range): BP systolic 69–128; BP diastolic 36–93; PULSE 60–123; RESP 13–96; TEMP 36.2–37.2; O2SAT 90–100; BMI 34.9
[2024-10-29] MEDS: PIPER/TAZO 3.375 GM PREMIX 3.375 GM/50 ML BAG IV ×3 (05:28→21:31)
[2024-10-29] MEDS: oxyCODONE/APAP 5/325 TABLET 1 TAB PO ×2 (05:34→12:30)
[2024-10-29] MEDS: ONDANSETRON INJ 2 MG/ML INJ 2 ML 4 MG IV ×2 (05:34→12:29)
[2024-10-29 06:10] LABS: Basophils % (Auto) 0 % (0-2.5); Eosinophils # (Auto) 0.3 Thou/mm3 (0.0-0.5); Eosinophils % (Auto) 10 % (0-10); Hematocrit 22.8 % (36.0-46.0); Immature Granulocytes % (Auto) 1 % (0-0); Immature Granulocytes Auto 0.03 Thou/mm3 (0.00-0.00); Lymphocytes # (Auto) 0.5 Thou/mm3 (1.0-4.8); Lymphocytes % (Auto) 15 % (10-50); Mean Corpuscular HGB Conc 33.3 g/dl (31.0-37.0); Mean Corpuscular Volume 87 fL (80-100); Monocytes # (Auto) 0.3 Thou/mm3 (0.0-0.8); Monocytes % (Auto) 11 % (0-12); Neutrophils % (Auto) 64 % (37-80); Nucleated Red Blood Cell % 0 /100 WBC (0); Platelet Count 286 Thou/mm3 (140-440); RDW Standard Deviation 51.8 fL (36.4-46.3); Red Blood Count 2.62 Miln/mm3 (4.00-5.20); White Blood Count 3.2 Thou/mm3 (3.6-11.0)
[2024-10-29 06:17] LABS: Hemoglobin 7.6 g/dL (12.0-16.0)
[2024-10-29 06:36] LABS: Alanine Aminotransferase 10 U/L (10-49); Albumin, Serum 3.3 gm/dL (3.4-4.8); Albumin/Globulin Ratio 1.4 (1.2-2.2); Alkaline Phosphatase 115 U/L (46-116); Anion Gap 10 (7-16); Aspartate Amino Transferase 13 U/L (0-34); BUN/Creatinine Ratio 14 Ratio (12-20); Bilirubin,Total 0.2 mg/dL (0.3-1.2); Blood Urea Nitrogen 31 mg/dL (9-23); Calcium 8.6 mg/dL (8.3-10.6); Calcium (Corrected) 9.2 mg/dL (8.5-10.1); Carbon Dioxide 22.2 mMol/L (20.0-31.0); Chloride 108 mMol/L (98-107); Creatinine (Component) 2.2 mg/dL (0.6-1.3); Estimated Creatinine Clearance 25.6 mL/min (>60); Globulin 2.4 gm/dL (2.3-3.5); Glucose 81 mg/dL (74-106); Osmolality,Calculated 284 (275-295); Potassium 4.2 mMol/L (3.4-5.1); Sodium 140 mMol/L (136-145); Total Protein 5.7 gm/dL (5.7-8.2); eGFR 24 See Note
[2024-10-29] MEDS: RINGERS LACTATED 500 ML 500 ML 999 ML IV (07:40)
[2024-10-29] MEDS: PANTOPRAZOLE INJ 40 MG VIAL IV (08:24)
[2024-10-29] MEDS: MIDODRINE 5 MG TABLET 10 MG PO ×3 (08:25→21:30)
[2024-10-29] MEDS: RINGERS LACTATED 1000 ML 500 ML 999 ML IV (09:50)
--- NOTE | 2024-10-29 10:02 | PD.RESPRO ---
Documentation for date of: 10/29/24 Subjective Subjective Interval history: Patient is a 69-year-old female with past medical history of endometrial cancer on chemo and radiotherapy, history of recurrent blood transfusion due to blood loss anemia from uterine bleeding, history of COPD, diabetes, bilateral obstructive nephrolithiasis status post bilateral nephrostomy was admitted to ICU due to septic shock. Patient received multiple boluses, however MAP was below 65, at that point patient started on Levophed. Chest x-ray was positive for PNA as well as UA was consistent for UTI. Patient was admitted to ICU for septic shock treatment and management, continue supportive vasopressors, cover with antibiotics, will follow-up with the cultures. 10/28/2024. Patient seen and examined at bedside. Acute overnight events. At bedside today, patient reports some pain in her knees and hips as well as some discomfort in the abdomen. Other than that, nausea and vomiting since admission. For septic shock, she was started on Levophed and at bedside is currently on 0.07, note that she received a total of 4 L of fluids since admission. With a bedside ultrasound, check patient's IVC for collapsibility and evaluate fluid requirements. Labs reviewed, creatinine 2.2 today, minimally improved from yesterday but patient had good urine output about 1.6 L since admission. Currently on IV Zosyn for urosepsis, nephrostomy tubes inspected, no pus seen. Will continue IV Zosyn, pending urine and blood cultures. 10/29/2024; patient was seen and examined at bedside Overnight MAP <65 and patient started on levophed small dose, in morning pressor was Dc and cheetah monitor was placed, she was responsive to fluids and recieved 2 L of LR. started Midodrine 10 TID, plan is to continue monitore hemdinamcs and if she remained off of pressors and map is in acceptable rage she will be downgraded to floors. renal panel is the same, she made total 500 ml of UO, she is having adequate UO after fluids. Urine still cloudy, UC still pending plan is to continue monitoring hymodinams, continue abx, follow cultures, still pending. Exam Vital Signs Temp Pulse Resp BP Pulse Ox O2 Del Method 97.4 F 91 18 106/70 98 Room Air 10/29/24 04:00 10/29/24 08:25 10/29/24 07:31 10/29/24 08:25 10/29/24 07:31 10/29/24 04:00 Narrative Exam GENERAL: AAOX3 NEURO: DIRECTOR OF ASSISTED LIVING grossly intact, moves extremities x4 HEENT: Moist mucosa. Eyes open, symmetrical, & clear CARDIO: No chest pain on palpation. Heart RRR, no obvious murmurs PULM: No noted coughing/dyspnea. Lungs CTA B/L, no R/W/R GI: Abdomen soft, nondistended, tender to palpation in left and right lumbar quadrants. BSx4 URO/COMPUTATIONAL SCIENTIST:: Bilateral nephrostomy tube in place SKIN/MSK/EXT: No wounds/rashes/edema/amputations, no pain on palpation. Pedal pulses present B/L Objective Labs 10/29/24 05:18 10/29/24 05:18 Labs: Laboratory Results - last 24 hr 10/29/24 05:18 WBC 3.2 L RBC 2.62 L Hgb 7.6 L Hct 22.8 L MCV 87 MCH 29.0 MCHC 33.3 RDW Std Deviation 51.8 H Plt Count 286 D Neut % (Auto) 64 Lymph % (Auto) 15 [place] % (Auto) 11 Eos % (Auto) 10 Baso % (Auto) 0 Neut # (Auto) 2.0 Lymph # (Auto) 0.5 L [place] # (Auto) 0.3 Eos # (Auto) 0.3 Baso # (Auto) 0.0 Immature Gran # (Auto) 0.03 H Absolute Nucleated RBC 0.00 Immature Gran % 1 H Nucleated RBC % 0 Sodium 140 Potassium 4.2 Chloride 108 H Carbon Dioxide 22.2 Anion Gap 10 BUN 31 H Creatinine 2.2 H Estim Creat Clear Calc 25.6 L eGFR 24 L BUN/Creatinine Ratio 14 Glucose 81 Calculated Osmolality 284 Calcium 8.6 Corrected Calcium 9.2 Total Bilirubin 0.2 L AST 13 ALT 10 Alkaline Phosphatase 115 Total Protein 5.7 Albumin 3.3 L Globulin 2.4 Albumin/Globulin Ratio 1.4 Quality Measures Quality Measures none Advance care planning discussed with:: patient Assessment & Plan Assessment Current Active Medications: Generic Name Dose Route Start Last Admin Trade Name Freq PRN Reason Stop Dose Admin Acetaminophen 650 mg 10/27/24 12:57 Acetaminophen 325 Mg Tablet PO 11/26/24 12:56 Q4HR PRN PAIN SCALE 1-3 (mild Acetaminophen 650 mg 10/27/24 12:57 Acetaminophen Supp 650 Mg Supp [place] 11/26/24 12:56 Q4HR PRN PAIN SCALE 1-3 (mild Hydrocodone Bitart/Acetaminophen 1 tab 10/28/24 09:17 Hydrocodone/Apap 5/325 Tablet PO 11/02/24 09:16 Q6HR PRN Pain 4-6 Al Hydrox/Mg Hydrox/Simethicone 30 ml 10/27/24 12:57 Mg Hyd/Al Hyd/Bety (Maalox Reg) Susp 30 Ml Udc PO 11/26/24 12:56 Q4HR PRN Heartburn or Upset Stomach Norepinephrine/Dextrose 8 mg in 250 mls @ 8.066 mls/hr 10/27/24 12:35 10/29/24 08:09 Levophed In D5w 8mg/250ml IV 11/26/24 12:34 0.01 mcg/kg/min .Q24H PRN 1.613 mls/hr PER PROTOCOL Titration Protocol 0.05 MCG/KG/MIN Piperacillin/Tazobactam/Dextrose 3.375 gm in 50 mls @ 12.5 mls/hr 10/27/24 22:00 10/29/24 05:28 Zosyn IV 11/03/24 21:59 12.5 mls/hr Q8HR JESSICA Administration Lactated Ringer's 500 mls @ 999 mls/hr 10/29/24 09:56 Lactated Ringers IV 10/29/24 10:26 .Q31M ONE Magnesium Hydroxide 30 ml 10/27/24 12:57 Milk Of Magnesia Susp 30 Ml Udc PO 11/26/24 12:56 QDAY PRN CONSTIPATION Midodrine 10 mg 10/29/24 07:00 10/29/24 08:25 Midodrine 5 Mg Tablet PO 11/28/24 06:59 10 mg TID JESSICA Administration Nitroglycerin 0.4 mg 10/27/24 12:57 Nitroglycerin 0.4 Mg Subl Btl #25 SL Q5MIN PRN CHEST PAIN Ondansetron HCl 4 mg 10/28/24 10:36 10/29/24 05:34 Ondansetron Inj 2 Mg/Ml Inj 2 Ml IV 11/27/24 10:35 4 mg Q6HR PRN Administration NAUSEA OR VOMITING Protocol Oxycodone/Acetaminophen 1 tab 10/28/24 09:10 10/29/24 05:34 Oxycodone/Apap 5/325 Tablet PO 11/02/24 09:09 1 tab Q6HR PRN Administration Pain 7-10 Pantoprazole Sodium 40 mg 10/27/24 15:45 10/29/24 08:24 Pantoprazole Inj 40 Mg Vial IV 11/26/24 15:44 40 mg QDAY JESSICA Administration Plan Summary: The patient is a 69-year-old female with a past medical history of endometrial cancer on chemo and radiotherapy, history of recurrent blood transfusions due to blood loss anemia from uterine bleeding, COPD, diabetes, unspecified colitis and bilateral obstructing nephrolithiasis status post bilateral nephrostomy who presented to the ED on 10/27/2024 with complaints of nausea and vomiting in the past 2 days Immiticide for management of septic shock secondary to UTI. Neuro No active conditions Cardiovascular #Septic shock-resolved The patient presented with nausea and vomiting that have been going on for the last 2 days. Admission, patient was febrile with a temperature of 101.4, tachycardic with heart rate in the 130s. UA showed pyuria and rare bacteria and negative for RBCs. The patient does have a nephrostomy tube and reports having multiple urinary tract infections. Lactic acid was normal with slightly elevated procalcitonin at 1.4 She received 2 L of fluids in the ED but was consistently hypotensive. ICU consulted for pressor support. Will start patient on Levophed. 10/28/2024- currently on Levophed 0.07. Received a total of 4 L of IV fluid will evaluate for necessity of more IV fluids. 10/29/2024- off of levo, recieved 2 l LR, cheetah responsive to fluids, monitor hemodinamics , resuscitate as needed, Plan: -Bedside ultrasound, evaluate fluid requirement-responsive, recieved 2L LR -titrate for MAP ~ 65 -pending cultures -continue abx Respiratory #History of COPD Per chart review, the patient has a history of COPD and is on albuterol inhalers at home. Denies cough, sputum production or any upper respiratory tract symptoms. On admission, she is saturating 97% on room air. On examination, no wheezing and rhonchi, lungs are clear to auscultation bilaterally. GI #Transaminitis-resolved Admission, minimal AST elevation at 45, normal ALT and ALP of 165. T. bili normal. Renal #Acute kidney injury, prerenal vs ckd The patient reports having multiple episodes of vomiting in the last 2 days as well as decreased oral intake. Admission, creatinine at 2.3, baseline about 1.0. She is having decent urine output is seen with nephrostomy tube. Received 3.5 L of IVF's in the ED. 10/28/2024-very minimal movement in creatinine to 2.2 today, good urine output 1.6 L. Will evaluate further comments and give more IV fluids if necessary. 10/29/24- renal panel is the same, Plan: -Continue to monitor renal panel -Avoid nephrotoxic medications -Renally dose medications #Hyponatremia-resolved #Hyperkalemia-resolved Admitting labs showed sodium of 131 with potassium of 5.6. Patient does report having multiple episodes of vomiting. Hyponatremia is hypoosmolar. She received 10 units of IV insulin in the ED as well as 3.5 L of IV fluids including normal saline and LR. Urology #Obstructive nephrolithiasis status post nephrostomy tube #Urinary tract infection Per patient's, about a month ago due to recurrent urinary tract infections and bilateral renal calculi, she had bilateral nephrostomy tube placed in [facility]. Urinalysis on this admission significant for pyuria. The patient has been started on IV Zosyn. Plan: -Continue IV Zosyn -Pending cultures Endocrinology #History of type II DM Patient has a history of diabetes and is on Januvia at home. Last A1c done about 4 months ago was 5.9. On admission, glucose was 142. Plan: -Glucose check every 6 hours -A1c 4.8 Hematology #Anemia stable likely hemoconcentration. Health maintenance: Dispo: ICU for septic shock secondary to urosepsis-resolved Diet: Regular GI: Pantoprazole DVT: Xarelto Bal: In situ with bilateral nephrostomy tubes Lines: Peripheral, Port-A-Cath Code: Full Patient care was discussed with attending physician Dr. Margaret Deng MD PGY-2 I have carefully reviewed this document. Due to imperfections in the voice software, there could be grammatical errors including phonetic/typographic errors. This in no way compromises the medical care the patient is receiving
[2024-10-29] MEDS: RINGERS LACTATED 1000 ML 1,000 ML 999 ML IV (11:28)
[2024-10-30] VITALS (118 sets, daily range): BP systolic 74–157; BP diastolic 34–89; PULSE 48–90; RESP 10–35; TEMP 36.4–36.9; O2SAT 88–100
[2024-10-30] MEDS: ONDANSETRON INJ 2 MG/ML INJ 2 ML 4 MG IV ×2 (04:18→19:24)
[2024-10-30] MEDS: oxyCODONE/APAP 5/325 TABLET 1 TAB PO ×2 (04:19→22:43)
[2024-10-30] MEDS: PIPER/TAZO 3.375 GM PREMIX 3.375 GM/50 ML BAG IV ×2 (05:59→13:40)
[2024-10-30] MEDS: MIDODRINE 5 MG TABLET 10 MG PO ×3 (06:00→22:13)
[2024-10-30 06:12] LABS: Basophils % (Auto) 1 % (0-2.5); Eosinophils # (Auto) 0.3 Thou/mm3 (0.0-0.5); Eosinophils % (Auto) 10 % (0-10); Hematocrit 27.7 % (36.0-46.0); Hemoglobin 8.9 g/dL (12.0-16.0); Immature Granulocytes % (Auto) 2 % (0-0); Immature Granulocytes Auto 0.06 Thou/mm3 (0.00-0.00); Lymphocytes # (Auto) 0.6 Thou/mm3 (1.0-4.8); Lymphocytes % (Auto) 17 % (10-50); Mean Corpuscular HGB Conc 32.1 g/dl (31.0-37.0); Mean Corpuscular Hemoglobin 28.9 pg (25.0-35.0); Mean Corpuscular Volume 90 fL (80-100); Monocytes # (Auto) 0.4 Thou/mm3 (0.0-0.8); Monocytes % (Auto) 11 % (0-12); Neutrophils % (Auto) 59 % (37-80); Nucleated Red Blood Cell % 0 /100 WBC (0); Platelet Count 291 Thou/mm3 (140-440); RDW Standard Deviation 54.3 fL (36.4-46.3); Red Blood Count 3.08 Miln/mm3 (4.00-5.20); White Blood Count 3.4 Thou/mm3 (3.6-11.0)
[2024-10-30] MEDS: Norepinephrine/D5W 8mg/250ml 8 MG/250 ML BAG 8.066 MG IV (06:36)
[2024-10-30 06:50] LABS: Albumin, Serum 3.3 gm/dL (3.4-4.8); Albumin/Globulin Ratio 1.5 (1.2-2.2); Alkaline Phosphatase 122 U/L (46-116); Anion Gap 8 (7-16); Aspartate Amino Transferase 13 U/L (0-34); BUN/Creatinine Ratio 13 Ratio (12-20); Bilirubin,Total 0.2 mg/dL (0.3-1.2); Blood Urea Nitrogen 25 mg/dL (9-23); Calcium 8.5 mg/dL (8.3-10.6); Calcium (Corrected) 9.1 mg/dL (8.5-10.1); Chloride 110 mMol/L (98-107); Creatinine (Component) 1.9 mg/dL (0.6-1.3); Estimated Creatinine Clearance 29.2 mL/min (>60); Globulin 2.2 gm/dL (2.3-3.5); Glucose 76 mg/dL (74-106); Osmolality,Calculated 284 (275-295); Potassium 3.8 mMol/L (3.4-5.1); Sodium 141 mMol/L (136-145); Total Protein 5.5 gm/dL (5.7-8.2); eGFR 28 See Note
[2024-10-30 06:56] LABS: Alanine Aminotransferase 10 U/L (10-49)
[2024-10-30] MEDS: PANTOPRAZOLE INJ 40 MG VIAL IV (09:11)
[2024-10-30] MEDS: RINGERS LACTATED 500 ML 500 ML 999 ML IV ×2 (09:22→15:44)
--- NOTE | 2024-10-30 10:54 | ESPR_ITS ---
<Statement entered by Kelsey Robles MD - 10/30/24 11:57> TOTAL CC TIME: 45 MIN I saw and evaluated the patient. I reviewed the resident?s note and agree with findings and plan as documented in the resident?s note. Upon my evaluation, this patient had a high probability of imminent or life- threatening deterioration due to septic shock from urinary tract infection which required my direct attention, intervention, and personal management. This time is exclusive of time spent on procedures, which are documented separately if performed. Gram-negative rods as expected in urine culture Remains on Levophed and stroke-volume index increased by 20% with straight leg raise. Concurrent POCUS exam reveals very low caliber and fully collapsible IVC improved with 1 L crystalloid bolus. Mean arterial pressure immediately improved. Complicating this is loose stools although she was admitted with constipation. She had evidence of diverticulitis. Her abdominal pain is at baseline currently. Documentation for date of: 10/30/24 Subjective Subjective Interval history: Patient is a 69-year-old female with past medical history of endometrial cancer on chemo and radiotherapy, history of recurrent blood transfusion due to blood loss anemia from uterine bleeding, history of COPD, diabetes, bilateral obstructive nephrolithiasis status post bilateral nephrostomy was admitted to ICU due to septic shock. Patient received multiple boluses, however MAP was below 65, at that point patient started on Levophed. Chest x-ray was positive for PNA as well as UA was consistent for UTI. Patient was admitted to ICU for septic shock treatment and management, continue supportive vasopressors, cover with antibiotics, will follow-up with the cultures. 10/28/2024. Patient seen and examined at bedside. Acute overnight events. At bedside today, patient reports some pain in her knees and hips as well as some discomfort in the abdomen. Other than that, nausea and vomiting since admission. For septic shock, she was started on Levophed and at bedside is currently on 0.07, note that she received a total of 4 L of fluids since admission. With a bedside ultrasound, check patient's IVC for collapsibility and evaluate fluid requirements. Labs reviewed, creatinine 2.2 today, minimally improved from yesterday but patient had good urine output about 1.6 L since admission. Currently on IV Zosyn for urosepsis, nephrostomy tubes inspected, no pus seen. Will continue IV Zosyn, pending urine and blood cultures. 10/29/2024; patient was seen and examined at bedside Overnight MAP <65 and patient started on levophed small dose, in morning pressor was Dc and cheetah monitor was placed, she was responsive to fluids and recieved 2 L of LR. started Midodrine 10 TID, plan is to continue monitore hemdinamcs and if she remained off of pressors and map is in acceptable rage she will be downgraded to floors. renal panel is the same, she made total 500 ml of UO, she is having adequate UO after fluids. Urine still cloudy, UC still pending plan is to continue monitoring hymodinams, continue abx, follow cultures, still pending. 10/30/2024- Patient seen and examined at bedside. Overnight, was said to have been hypotensive with MAP in the mid to high 50s and was restarted on Levophed. At bedside this morning, patient's endorses some nausea, no vomiting but is still having tarry bowel movements multiple times a day. Cheetah put on, SVI about 20%. Bedside ultrasound shows collapsible IVC and patient received another liter of LR. Currently on Levophed at 0.01. Will reevaluate hemodynamic status after fluids and make a decision on additional clinical evidence. CT abdomen and pelvis reviewed again showing early sigmoid diverticulitis. Labs reviewed, creatinine improved at 1.9. Urine culture showed gram-negative rods, pending final. Will continue IV antibiotics Zosyn and continue to down titrate on pressor requirements. Exam Vital Signs Temp Pulse Resp BP Pulse Ox O2 Del Method 98.4 F 79 16 82/38 L 96 Room Air 10/30/24 04:16 10/30/24 06:36 10/30/24 06:00 10/30/24 06:36 10/30/24 06:00 10/30/24 04:16 Narrative Exam GENERAL: AAOX3 NEURO: PRISON KEEPER grossly intact, moves extremities x4 HEENT: Moist mucosa. Eyes open, symmetrical, & clear CARDIO: No chest pain on palpation. Heart RRR, no obvious murmurs PULM: No noted coughing/dyspnea. Lungs CTA B/L, no R/W/R GI: Abdomen soft, nondistended, tender to palpation in left and right lumbar quadrants as well as epigastric. BSx4 URO/STEEL PLATE CAULKER: Bilateral nephrostomy tube in place SKIN/MSK/EXT: No wounds/rashes/edema/amputations, no pain on palpation. Pedal pulses present B/L Objective Labs 10/30/24 04:35 10/30/24 04:35 Labs: Laboratory Results - last 24 hr 10/30/24 04:35 WBC 3.4 L RBC 3.08 L Hgb 8.9 L Hct 27.7 L MCV 90 MCH 28.9 MCHC 32.1 RDW Std Deviation 54.3 H Plt Count 291 Neut % (Auto) 59 Lymph % (Auto) 17 [place] % (Auto) 11 Eos % (Auto) 10 Baso % (Auto) 1 Neut # (Auto) 2.0 Lymph # (Auto) 0.6 L [place] # (Auto) 0.4 Eos # (Auto) 0.3 Baso # (Auto) 0.0 Immature Gran # (Auto) 0.06 H Absolute Nucleated RBC 0.00 Immature Gran % 2 H Nucleated RBC % 0 Sodium 141 Potassium 3.8 Chloride 110 H Carbon Dioxide 23.0 Anion Gap 8 BUN 25 H Creatinine 1.9 H Estim Creat Clear Calc 29.2 L eGFR 28 L BUN/Creatinine Ratio 13 Glucose 76 Calculated Osmolality 284 Calcium 8.5 Corrected Calcium 9.1 Total Bilirubin 0.2 L AST 13 ALT 10 Alkaline Phosphatase 122 H Total Protein 5.5 L Albumin 3.3 L Globulin 2.2 L Albumin/Globulin Ratio 1.5 Quality Measures Quality Measures none Advance care planning discussed with:: patient Assessment & Plan Assessment Current Active Medications: Generic Name Dose Route Start Last Admin Trade Name Tomas PRN Reason Stop Dose Admin Acetaminophen 650 mg 10/27/24 12:57 Acetaminophen 325 Mg Tablet PO 11/26/24 12:56 Q4HR PRN PAIN SCALE 1-3 (mild Acetaminophen 650 mg 10/27/24 12:57 Acetaminophen Supp 650 Mg Supp OR 11/26/24 12:56 Q4HR PRN PAIN SCALE 1-3 (mild Hydrocodone Bitart/Acetaminophen 1 tab 10/28/24 09:17 Hydrocodone/Apap 5/325 Tablet PO 11/02/24 09:16 Q6HR PRN Pain 4-6 Al Hydrox/Mg Hydrox/Simethicone 30 ml 10/27/24 12:57 Mg Hyd/Al Hyd/Bety (Maalox Reg) Susp 30 Ml Udc PO 11/26/24 12:56 Q4HR PRN Heartburn or Upset Stomach Norepinephrine/Dextrose 8 mg in 250 mls @ 8.066 mls/hr 10/27/24 12:35 10/30/24 06:36 Levophed In D5w 8mg/250ml IV 11/26/24 12:34 0.05 mcg/kg/min .Q24H PRN 8.066 mls/hr PER PROTOCOL Administration Protocol 0.05 MCG/KG/MIN Piperacillin/Tazobactam/Dextrose 3.375 gm in 50 mls @ 12.5 mls/hr 10/27/24 22:00 10/30/24 05:59 Zosyn IV 11/03/24 21:59 12.5 mls/hr Q8HR JESSICA Administration Magnesium Hydroxide 30 ml 10/27/24 12:57 Milk Of Magnesia Susp 30 Ml Udc PO 11/26/24 12:56 QDAY PRN CONSTIPATION Midodrine 10 mg 10/29/24 07:00 10/30/24 06:00 Midodrine 5 Mg Tablet PO 11/28/24 06:59 10 mg TID JESSICA Administration Nitroglycerin 0.4 mg 10/27/24 12:57 Nitroglycerin 0.4 Mg Subl Btl #25 SL Q5MIN PRN CHEST PAIN Ondansetron HCl 4 mg 10/28/24 10:36 10/30/24 04:18 Ondansetron Inj 2 Mg/Ml Inj 2 Ml IV 11/27/24 10:35 4 mg Q6HR PRN Administration NAUSEA OR VOMITING Protocol Oxycodone/Acetaminophen 1 tab 10/28/24 09:10 10/30/24 04:19 Oxycodone/Apap 5/325 Tablet PO 11/02/24 09:09 1 tab Q6HR PRN Administration Pain 7-10 Pantoprazole Sodium 40 mg 10/27/24 15:45 10/30/24 09:11 Pantoprazole Inj 40 Mg Vial IV 11/26/24 15:44 40 mg QDAY JESSICA Administration Plan Summary: The patient is a 69-year-old female with a past medical history of endometrial cancer on chemo and radiotherapy, history of recurrent blood transfusions due to blood loss anemia from uterine bleeding, COPD, diabetes, unspecified colitis and bilateral obstructing nephrolithiasis status post bilateral nephrostomy who presented to the ED on 10/27/2024 with complaints of nausea and vomiting in the past 2 days Admitted to ICU for management of septic shock secondary to UTI. Neuro No active conditions Cardiovascular #Septic shock The patient presented with nausea and vomiting that have been going on for the last 2 days. Admission, patient was febrile with a temperature of 101.4, tachycardic with heart rate in the 130s. UA showed pyuria and rare bacteria and negative for RBCs. The patient does have a nephrostomy tube and reports having multiple urinary tract infections. Lactic acid was normal with slightly elevated procalcitonin at 1.4 She received 2 L of fluids in the ED but was consistently hypotensive. ICU consulted for pressor support. Will start patient on Levophed. 10/28/2024- currently on Levophed 0.07. Received a total of 4 L of IV fluid will evaluate for necessity of more IV fluids. 10/30/2024-overnight, MAP was in the mid to high 50s, patient restarted on Levophed. Bedside ultrasound done today, collapsible IVC we will give another liter of LR and down titrate on pressors. Plan: -IV fluid lactated Ringer's, 1 L and then reevaluate -Continue to titrate Levophed, titrate for MAP greater than 65 Respiratory #History of COPD Per chart review, the patient has a history of COPD and is on albuterol inhalers at home. Denies cough, sputum production or any upper respiratory tract symptoms. On admission, she is saturating 97% on room air. On examination, no wheezing and rhonchi, lungs are clear to auscultation bilaterally. GI #Transaminitis-resolved Admission, minimal AST elevation at 45, normal ALT and ALP of 165. T. bili normal. Will continue to trend LFTs. Renal #Acute kidney injury, prerenal The patient reports having multiple episodes of vomiting in the last 2 days as well as decreased oral intake. Admission, creatinine at 2.3, baseline about 1.0. She is having decent urine output is seen with nephrostomy tube. Received 3.5 L of IVF's in the ED. 10/28/2024-very minimal movement in creatinine to 2.2 today, good urine output 1.6 L. Will evaluate further comments and give more IV fluids if necessary. 10/30/2024-creatinine at 1.9 today, slightly improved, patient still having good urine output but also having multiple bowel movement today. Given IV fluids. Plan: -Continue to monitor renal panel -Avoid nephrotoxic medications -Renally dose medications #Hyponatremia-resolved #Hyperkalemia-resolved Admitting labs showed sodium of 131 with potassium of 5.6. Patient does report having multiple episodes of vomiting. Hyponatremia is hypoosmolar. She received 10 units of IV insulin in the ED as well as 3.5 L of IV fluids including normal saline and LR. Urology #Obstructive nephrolithiasis status post nephrostomy tube #Urinary tract infection Per patient's, about a month ago due to recurrent urinary tract infections and bilateral renal calculi, she had bilateral nephrostomy tube placed in [facility]. Urinalysis on this admission significant for pyuria. The patient has been started on IV Zosyn. 10/30/2024-urine culture growing gram-negative rods, will follow final. Continue IV Zosyn. Plan: -Continue IV Zosyn -Pending cultures Endocrinology #History of type II DM Patient has a history of diabetes and is on Januvia at home. Last A1c done about 4 months ago was 5.9. On admission, glucose was 142. Plan: -Will hold off on insulin regimen for now. -Glucose check every 6 hours -A1c Hematology #Anemia Hemoglobin at 11.3, stable and significant better than patient's baseline, likely hemoconcentration. Health maintenance: Dispo: ICU for septic shock secondary to urosepsis Diet: Regular GI: Pantoprazole DVT: Xarelto Bal: In situ with bilateral nephrostomy tubes Lines: Peripheral, Port-A-Cath Med Rec: Pending, f/u Code: Full Case was discussed with Dr Deng PGY-2 and attending physician, Dr Margaret Flynn MD PGY-1 Disclaimer: This note was dictated by speech recognition. Minor errors in farmer cash grain may be present due to voice recognition software.
[2024-10-30] MEDS: RINGERS LACTATED 1000 ML 1,000 ML 999 ML IV (10:56)
--- NOTE | 2024-10-30 15:50 | XR_ITS ---
Examination: AP chest single view TECHNIQUE: Sitting portable AP chest single view Examination time: October 30, 2024 1633 hours Comparison October 27, 2024 INDICATIONS: Chest pain today FINDINGS: There remains opacity at the left base Mild prominence of ventricle Mild vascular congestion. Right internal jugular Port-A-Cath tip SVC satisfactory position IMPRESSION: Recommend lateral chest to follow-up to exclude pneumonia left base
--- NOTE | 2024-10-30 15:50 | EKG_ITS ---
[facility] Test Date: 2024-10-30 Pat Name: SUSAN THOMAS Department: Room: S252A Gender: Female Movie Editor: REBEKAH : 1955 Requested By: Jaky Deng Order Number: [id number] Reading MD: Jaky Deng Measurements Intervals [place] Rate: 60 P: 41 ID: [id number] QRS: -30 QRSD: 91 T: 3 QT: 413 QTc: 413 Interpretive Statements SINUS RHYTHM POSSIBLE ANTERIOR MYOCARDIAL INFARCTION , PROBABLY OLD Compared to ECG 06/16/2023 09:24:19 Myocardial infarct finding now present /store/[email or web address]/[id number]
[2024-10-30] MEDS: ASPIRIN 81 MG CHEW 162 MG PO (16:07)
[2024-10-30] MEDS: HEPARIN SOD INJ 5000 UNIT/ML VIAL SC ×2 (16:34→22:14)
[2024-10-30 16:36] LABS: Troponin I < 0.002 ng/mL (0.0-0.045)
[2024-10-30] MEDS: WATER IV (17:19)
[2024-10-30] MEDS: DEXTROSE 5% IV (17:19)
[2024-10-30] MEDS: SMX IV (17:19)
[2024-10-30] MEDS: TMP IV (17:19)
[2024-10-30] MEDS: HYDROcodone/APAP 5/325 TABLET 1 TAB PO (19:20)
[2024-10-30 23:26] LABS: Troponin I < 0.002 ng/mL (0.0-0.045)
[2024-10-31] VITALS (77 sets, daily range): BP systolic 71–154; BP diastolic 37–99; PULSE 52–106; RESP 12–35; TEMP 36.4–38.2; O2SAT 87–100; BMI 35.3
[2024-10-31 05:50] LABS: Basophils % (Auto) 0 % (0-2.5); Eosinophils # (Auto) 0.3 Thou/mm3 (0.0-0.5); Eosinophils % (Auto) 7 % (0-10); Hematocrit 27.6 % (36.0-46.0); Immature Granulocytes % (Auto) 1 % (0-0); Immature Granulocytes Auto 0.05 Thou/mm3 (0.00-0.00); Lymphocytes % (Auto) 21 % (10-50); Mean Corpuscular HGB Conc 31.5 g/dl (31.0-37.0); Mean Corpuscular Hemoglobin 28.4 pg (25.0-35.0); Mean Corpuscular Volume 90 fL (80-100); Monocytes # (Auto) 0.3 Thou/mm3 (0.0-0.8); Monocytes % (Auto) 7 % (0-12); Neutrophils # (Auto) 2.9 Thou/mm3 (1.8-7.7); Neutrophils % (Auto) 63 % (37-80); Nucleated Red Blood Cell % 0 /100 WBC (0); Platelet Count 322 Thou/mm3 (140-440); RDW Standard Deviation 53.9 fL (36.4-46.3); Red Blood Count 3.06 Miln/mm3 (4.00-5.20); White Blood Count 4.6 Thou/mm3 (3.6-11.0)
[2024-10-31 05:53] LABS: Hemoglobin 8.7 g/dL (12.0-16.0)
[2024-10-31] MEDS: HEPARIN SOD INJ 5000 UNIT/ML VIAL SC (06:01)
[2024-10-31] MEDS: MIDODRINE 5 MG TABLET 10 MG PO ×3 (06:01→21:14)
[2024-10-31 06:15] LABS: Alanine Aminotransferase 10 U/L (10-49); Albumin, Serum 3.4 gm/dL (3.4-4.8); Albumin/Globulin Ratio 1.4 (1.2-2.2); Alkaline Phosphatase 130 U/L (46-116); Anion Gap 10 (7-16); Aspartate Amino Transferase 15 U/L (0-34); BUN/Creatinine Ratio 12 Ratio (12-20); Bilirubin,Total < 0.2 mg/dL (0.3-1.2); Blood Urea Nitrogen 22 mg/dL (9-23); Calcium 9.2 mg/dL (8.3-10.6); Calcium (Corrected) 9.7 mg/dL (8.5-10.1); Carbon Dioxide 24.4 mMol/L (20.0-31.0); Chloride 108 mMol/L (98-107); Creatinine (Component) 1.8 mg/dL (0.6-1.3); Estimated Creatinine Clearance 31.5 mL/min (>60); Globulin 2.4 gm/dL (2.3-3.5); Glucose 74 mg/dL (74-106); Osmolality,Calculated 285 (275-295); Potassium 4.1 mMol/L (3.4-5.1); Sodium 142 mMol/L (136-145); Total Protein 5.8 gm/dL (5.7-8.2); eGFR 30 See Note
--- NOTE | 2024-10-31 07:04 | XR_ITS ---
Examination: Fluoroscopy 3 spot fluoroscopic films of the abdomen Bilateral nephrostograms IV conscious sedation Exam date and time: October 31, 2024 1215 hours INDICATIONS: Clinical diagnosis infection of the patient's existing nephrostomies Technique an findings: Informed consent provided Timeout performed Under physician supervision, 1 mg Versed 50 mcg fentanyl administered intravenously for moderate sedation. Pulse oximetry, heart rate, blood pressure continuously monitored with an independent training observer present. The physician spent 15 minutes of [id number] sedation time with the patient Skin prepped over the flank regions and sterile drape applied Hand-injection 10 cc Cystografin both on the right and left sides demonstrating satisfactory position of the bilateral nephrostomy tubes with dilated bilateral ureters Under fluoroscopic guidance, wire guide could not be successfully introduced through the nephrostomy catheters which are coiled multiple times in the right and left renal collecting systems Fluoroscopy 2.0 minutes radiation dose 55.22 milligray IMPRESSION: Nephrostomy tubes in satisfactory position Wire guides could not be passed through the coiled nephrostomy tubes, unsuccessful replacement of the nephrostomy drainage catheters
[2024-10-31] MEDS: ONDANSETRON INJ 2 MG/ML INJ 2 ML 4 MG IV ×3 (07:47→21:15)
[2024-10-31] MEDS: oxyCODONE/APAP 5/325 TABLET 1 TAB PO ×2 (07:57→21:15)
[2024-10-31] MEDS: SMX IV ×2 (08:37→21:14)
[2024-10-31] MEDS: TMP IV ×2 (08:37→21:14)
[2024-10-31] MEDS: DEXTROSE 5% IV ×2 (08:37→21:14)
[2024-10-31] MEDS: PANTOPRAZOLE INJ 40 MG VIAL IV (08:37)
[2024-10-31] MEDS: WATER IV ×2 (08:37→21:14)
--- NOTE | 2024-10-31 11:08 | ESPR_ITS ---
<Statement entered by Kelsey Robles MD - 11/01/24 14:55> TOTAL CC TIME: 45 MIN I saw and evaluated the patient. I reviewed the resident?s note and agree with findings and plan as documented in the resident?s note. Upon my evaluation, this patient had a high probability of imminent or life- threatening deterioration due to septic shock which required my direct attention, intervention, and personal management. This time is exclusive of time spent on procedures, which are documented separately if performed. Back on pressors remains on bactrim high dose radiology unable to x-hange nephrostomy tubes due to debris in the tubes I personally called and spoke with Dr. Cale Quintana pt's urologist who recommended she be transferred to [facility] for IR second attempt at exchange, given that is where they were placed - if fails he will operate. <Statement entered by Melony Naranjo MD - 10/31/24 11:29> Patient was examined bedside this morning, she had a temperature of 100.7. Will continue high-dose of bactrim ,IR guided nephrostomy tube changed today. Will follow-up repeat urine culture. I discussed with and supervised my co-resident involved in the care of this patient. I agree with the assessment and plan as documented above. Melony Naranjo,PGY-3 Disclaimer: Despite multiple revisions, due to the dictation software being used, the document below may not be free of grammatical errors including phonetic/typographic errors. However, this does not deter from our commitment to providing health care in the patient's best interest in mind. Documentation for date of: 10/31/24 Subjective Subjective Interval history: Patient is a 69-year-old female with past medical history of endometrial cancer on chemo and radiotherapy, history of recurrent blood transfusion due to blood loss anemia from uterine bleeding, history of COPD, diabetes, bilateral obstructive nephrolithiasis status post bilateral nephrostomy was admitted to ICU due to septic shock. Patient received multiple boluses, however MAP was below 65, at that point patient started on Levophed. Chest x-ray was positive for PNA as well as UA was consistent for UTI. Patient was admitted to ICU for septic shock treatment and management, continue supportive vasopressors, cover with antibiotics, will follow-up with the cultures. 10/28/2024. Patient seen and examined at bedside. Acute overnight events. At bedside today, patient reports some pain in her knees and hips as well as some discomfort in the abdomen. Other than that, nausea and vomiting since admission. For septic shock, she was started on Levophed and at bedside is currently on 0.07, note that she received a total of 4 L of fluids since admission. With a bedside ultrasound, check patient's IVC for collapsibility and evaluate fluid requirements. Labs reviewed, creatinine 2.2 today, minimally improved from yesterday but patient had good urine output about 1.6 L since admission. Currently on IV Zosyn for urosepsis, nephrostomy tubes inspected, no pus seen. Will continue IV Zosyn, pending urine and blood cultures. 10/29/2024; patient was seen and examined at bedside Overnight MAP <65 and patient started on levophed small dose, in morning pressor was Dc and cheetah monitor was placed, she was responsive to fluids and recieved 2 L of LR. started Midodrine 10 TID, plan is to continue monitore hemdinamcs and if she remained off of pressors and map is in acceptable rage she will be downgraded to floors. renal panel is the same, she made total 500 ml of UO, she is having adequate UO after fluids. Urine still cloudy, UC still pending plan is to continue monitoring hymodinams, continue abx, follow cultures, still pending. 10/30/2024- Patient seen and examined at bedside. Overnight, was said to have been hypotensive with MAP in the mid to high 50s and was restarted on Levophed. At bedside this morning, patient's endorses some nausea, no vomiting but is still having tarry bowel movements multiple times a day. Cheetah put on, SVI about 20%. Bedside ultrasound shows collapsible IVC and patient received another liter of LR. Currently on Levophed at 0.01. Will reevaluate hemodynamic status after fluids and make a decision on additional clinical evidence. CT abdomen and pelvis reviewed again showing early sigmoid diverticulitis. Labs reviewed, creatinine improved at 1.9. Urine culture showed gram-negative rods, pending final. Will continue IV antibiotics Zosyn and continue to down titrate on pressor requirements. 10/31/2024- Patient seen and examined at bedside. Overnight, had a temperature up to 100.7 with associated chills. Also had complaints of chest pressure-like pain radiating to the neck which is intermittent, severity about 5. Urine culture returned positive for stenotrophomonas maltophilia with Bactrim is drug of choice. Suspected to be colonization/infection from nephrostomy tubes and IR has been consulted for changing of the tubes. In the interim, we will keep the patient on high-dose Bactrim. Repeated urine cultures, WBC normal creatinine slightly improved at 1.8. 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 Eyes open, symmetrical, & clear CARDIO: No chest pain on palpation. Heart RRR, no obvious murmurs PULM: No noted coughing/dyspnea. Lungs CTA B/L, no R/W/R GI: Abdomen soft, nondistended, tender to palpation in left and right lumbar quadrants as well as epigastric. BSx4 URO/VEHICLE BODY BUILDER: Bilateral nephrostomy tube in place SKIN/MSK/EXT: No wounds/rashes/edema/amputations, no pain on palpation. Pedal pulses present B/L Objective Labs 10/31/24 04:49 10/31/24 04:49 Labs: Laboratory Results - last 24 hr 10/30/24 10/30/24 10/31/24 16:06 22:55 04:49 WBC 4.6 RBC 3.06 L Hgb 8.7 L Hct 27.6 L MCV 90 MCH 28.4 MCHC 31.5 RDW Std Deviation 53.9 H Plt Count 322 D Neut % (Auto) 63 Lymph % (Auto) 21 Burke % (Auto) 7 Eos % (Auto) 7 Baso % (Auto) 0 Neut # (Auto) 2.9 Lymph # (Auto) 1.0 Burke # (Auto) 0.3 Eos # (Auto) 0.3 Baso # (Auto) 0.0 Immature Gran # (Auto) 0.05 H Absolute Nucleated RBC 0.00 Immature Gran % 1 H Nucleated RBC % 0 Sodium 142 Potassium 4.1 Chloride 108 H Carbon Dioxide 24.4 Anion Gap 10 BUN 22 Creatinine 1.8 H Estim Creat Clear Calc 31.5 L eGFR 30 L BUN/Creatinine Ratio 12 Glucose 74 Calculated Osmolality 285 Calcium 9.2 Corrected Calcium 9.7 Total Bilirubin < 0.2 L AST 15 ALT 10 Alkaline Phosphatase 130 H Troponin I < 0.002 < 0.002 Total Protein 5.8 Albumin 3.4 Globulin 2.4 Albumin/Globulin Ratio 1.4 Quality Measures Quality Measures none Advance care planning discussed with:: patient Assessment & Plan Assessment Current Active Medications: Generic Name Dose Route Start Last Admin Trade Name Freq PRN Reason Stop Dose Admin Acetaminophen 650 mg 10/27/24 12:57 Acetaminophen 325 Mg Tablet PO 11/26/24 12:56 Q4HR PRN PAIN SCALE 1-3 (mild Acetaminophen 650 mg 10/27/24 12:57 Acetaminophen Supp 650 Mg Supp NE 11/26/24 12:56 Q4HR PRN PAIN SCALE 1-3 (mild Hydrocodone Bitart/Acetaminophen 1 tab 10/28/24 09:17 10/30/24 19:20 Hydrocodone/Apap 5/325 Tablet PO 11/02/24 09:16 1 tab Q6HR PRN Administration Pain 4-6 Al Hydrox/Mg Hydrox/Simethicone 30 ml 10/27/24 12:57 Mg Hyd/Al Hyd/Bety (Maalox Reg) Susp 30 Ml Udc PO 11/26/24 12:56 Q4HR PRN Heartburn or Upset Stomach Heparin Sodium (Porcine) 5,000 unit 10/30/24 16:15 10/31/24 06:01 Heparin Sod Inj 5000 Unit/Ml Vial SC 11/13/24 16:14 5,000 unit Q8HR JESSICA Administration Norepinephrine/Dextrose 8 mg in 250 mls @ 8.066 mls/hr 10/27/24 12:35 10/30/24 22:48 Levophed In D5w 8mg/250ml IV 11/26/24 12:34 0 mcg/kg/min .Q24H PRN 0 mls/hr PER PROTOCOL Titration Protocol 0.05 MCG/KG/MIN Trimethoprim/Sulfamethoxazole 105 mls @ 105 mls/hr 10/30/24 17:30 10/31/24 08:37 5 ml/ Dextrose IV 11/06/24 17:29 105 mls/hr BID JESSICA Administration Magnesium Hydroxide 30 ml 10/27/24 12:57 Milk Of Magnesia Susp 30 Ml Udc PO 11/26/24 12:56 QDAY PRN CONSTIPATION Midodrine 10 mg 10/29/24 07:00 10/31/24 06:01 Midodrine 5 Mg Tablet PO 11/28/24 06:59 10 mg TID JESSICA Administration Nitroglycerin 0.4 mg 10/27/24 12:57 Nitroglycerin 0.4 Mg Subl Btl #25 SL Q5MIN PRN CHEST PAIN Ondansetron HCl 4 mg 10/28/24 10:36 10/31/24 07:47 Ondansetron Inj 2 Mg/Ml Inj 2 Ml IV 11/27/24 10:35 4 mg Q6HR PRN Administration NAUSEA OR VOMITING Protocol Oxycodone/Acetaminophen 1 tab 10/28/24 09:10 10/31/24 07:57 Oxycodone/Apap 5/325 Tablet PO 11/02/24 09:09 1 tab Q6HR PRN Administration Pain 7-10 Pantoprazole Sodium 40 mg 10/27/24 15:45 10/31/24 08:37 Pantoprazole Inj 40 Mg Vial IV 11/26/24 15:44 40 mg QDAY JESSICA Administration Plan Summary: The patient is a 69-year-old female with a past medical history of endometrial cancer on chemo and radiotherapy, history of recurrent blood transfusions due to blood loss anemia from uterine bleeding, COPD, diabetes, unspecified colitis and bilateral obstructing nephrolithiasis status post bilateral nephrostomy who presented to the ED on 10/27/2024 with complaints of nausea and vomiting in the past 2 days Admitted to ICU for management of septic shock secondary to UTI. Neuro No active conditions Cardiovascular #Septic shock The patient presented with nausea and vomiting that have been going on for the last 2 days. Admission, patient was febrile with a temperature of 101.4, tachycardic with heart rate in the 130s. UA showed pyuria and rare bacteria and negative for RBCs. The patient does have a nephrostomy tube and reports having multiple urinary tract infections. Lactic acid was normal with slightly elevated procalcitonin at 1.4 She received 2 L of fluids in the ED but was consistently hypotensive. ICU consulted for pressor support. Will start patient on Levophed. 10/28/2024- currently on Levophed 0.07. Received a total of 4 L of IV fluid will evaluate for necessity of more IV fluids. 10/30/2024-overnight, MAP was in the mid to high 50s, patient restarted on Levophed. Bedside ultrasound done today, collapsible IVC we will give another liter of LR and down titrate on pressors. 10/31/2024-Levophed stopped at 23:00, MAP doing well above 65. Respiratory #History of COPD Per chart review, the patient has a history of COPD and is on albuterol inhalers at home. Denies cough, sputum production or any upper respiratory tract symptoms. On admission, she is saturating 97% on room air. On examination, no wheezing and rhonchi, lungs are clear to auscultation bilaterally. GI #Transaminitis-resolved Admission, minimal AST elevation at 45, normal ALT and ALP of 165. T. bili normal. Will continue to trend LFTs. Renal #Acute kidney injury, prerenal The patient reports having multiple episodes of vomiting in the last 2 days as well as decreased oral intake. Admission, creatinine at 2.3, baseline about 1.0. She is having decent urine output is seen with nephrostomy tube. Received 3.5 L of IVF's in the ED. 10/28/2024-very minimal movement in creatinine to 2.2 today, good urine output 1.6 L. Will evaluate further comments and give more IV fluids if necessary. 10/30/2024-creatinine at 1.9 today, slightly improved, patient still having good urine output but also having multiple bowel movement today. Given IV fluids. 3 10/01/2024-creatinine at 1.8 today, patient having good urine output, no diarrhea. Plan: -Continue to monitor renal panel -Avoid nephrotoxic medications -Renally dose medications #Hyponatremia-resolved #Hyperkalemia-resolved Admitting labs showed sodium of 131 with potassium of 5.6. Patient does report having multiple episodes of vomiting. Hyponatremia is hypoosmolar. She received 10 units of IV insulin in the ED as well as 3.5 L of IV fluids including normal saline and LR. Urology #Obstructive nephrolithiasis status post nephrostomy tube #Urinary tract infection #Stenotrophomonas maltophilia Per patient's, about a month ago due to recurrent urinary tract infections and bilateral renal calculi, she had bilateral nephrostomy tube placed in [facility]. Urinalysis on this admission significant for pyuria. The patient has been started on IV Zosyn. 10/30/2024-urine culture growing gram-negative rods, will follow final. Continue IV Zosyn. 10/31/2024-urine culture grew Stenotrophomonas maltophilia, multidrug resistant bacteria. Discontinued IV Zosyn and started patient on Bactrim. Also consulted IR for change of nephrostomy tube as there is a high suspicion for colonization. Plan: -Continue IV Bactrim -Urine culture repeated Endocrinology #History of type II DM Patient has a history of diabetes and is on Januvia at home. Last A1c done about 4 months ago was 5.9. On admission, glucose was 142. Plan: -Will hold off on insulin regimen for now. -Glucose check every 6 hours -A1c Hematology #Anemia Hemoglobin at 11.3, stable and significant better than patient's baseline, likely hemoconcentration. Health maintenance: Dispo: ICU for septic shock secondary to urosepsis Diet: NPO GI: Pantoprazole DVT: SC heparin (held for IR procedure) Bal: In situ with bilateral nephrostomy tubes Lines: Peripheral, Port-A-Cath Med Rec: Pending, f/u Code: Full Case was discussed with Dr Naranjo PGY-3 and attending physician, Dr Margaret Flynn MD PGY-1 Disclaimer: This note was dictated by speech recognition. Minor errors in specialist physicians may be present due to voice recognition software.
[2024-10-31] MEDS: MIDAZOLAM INJ 1 MG/ML VIAL 2 ML IV (12:44)
[2024-10-31] MEDS: fentaNYL CIT INJ 50 mCg/ML AMP 2ML IVP (12:44)
--- NOTE | 2024-10-31 14:06 | ESDS_ITS ---
<Statement entered by Kelsey Robles MD - 11/01/24 14:56> TOTAL TIME: 45MINUTES ON DIRECT MEDICAL CARE, MANAGEMENT - COORDINATION AND COUNSELING > 50% OF TOTAL TIME I saw and evaluated the patient. I reviewed the resident?s note and agree with findings and plan as documented in the resident?s note. Planned Discharge Date 10/31/24 DS: Providers Provider Date of admission: 10/27/24 12:57 Primary care physician: Prasanna Morrell MD Admitting Provider: Kelsey Robles MD Attending Provider on Admission: Kelsey Robles MD Consults: 10/30/24 05:02 Referral Wound Care Stat Comment: bleeding at balbir-area cyst 10/31/24 13:56 Referral - Automotive Engineer Stat Service Needed for Transfer: Interventional Radiology Addl Comments:: our IR could not exchange the tube Attending Provider on DC: Mireya Flynn MD Discharging Provider: Mireya Flynn MD DS: Diagnosis Problem List Completed Was Problem List Reviewed/Reconciled?: Yes Hospital Course Hospital Course Hospital course: The patient is a 69-year-old female with a past medical history of endometrial cancer on chemo and radiotherapy, history of recurrent blood transfusions due to blood loss anemia from uterine bleeding, COPD, diabetes, unspecified colitis and bilateral obstructing nephrolithiasis status post bilateral nephrostomy who presented to the ED on 10/27/2024 with complaints of nausea and vomiting for about 2 days prior to presentation. Per patient, she intermittently has symptoms since she started chemotherapy, however in the last 2 days had worsening and was unable to tolerate any oral intake. The patient had nephrostomy tubes placed at [facility] about a month prior. In the ED, she was febrile, tachycardic with borderline blood pressure. Initial labs were significant for elevated procalcitonin, creatinine and normal lactate. Urinalysis showed pyuria and bacteriuria and CT abdomen pelvis showed bilateral renal calculi with nephrostomy tubes in good position and left hydronephrosis.. Per sepsis protocol, the patient received about 3 L of fluids but blood pressure was consistently low with MAP more than 65. Consequently, the patient was admitted to the ICU for septic shock secondary to UTI. In ICU, the patient was started on Levophed to maintain MAP above 65, also started on IV antibiotics-Zosyn.. Serial bedside ultrasounds were done to check IVC and as the patient was still fluid responsive and requiring more fluids, she was repleted. She continued however to be intermittently hypotensive, requiring Levophed on and off periodically. Urine culture returned positive for stenotrophomonas maltophilia with Bactrim as drug of choice, Zosyn discontinued and Bactrim commenced. The positive culture was suspected to be colonization/infection from the nephrostomy tube and IR was consulted for the tube to be changed. The patient continued to be hypotensive and febrile through the night, requiring reinitiation of Levophed and antipyretics. Today, 10/31/2024, the patient presented to our [facility] for nephrostomy tube to be replaced. However, the providers that patient does not have enough hydronephrosis and will be difficult to replace the tubes once taken out. We consulted with the patient's urologist Dr. Madsen at [facility] who recommended for the patient to be transferred as is it might be more beneficial that the radiologist who inserted the tube initially to perform the procedure again. The transfer process has been initiated to [facility] for interventional radiology services. #Septic shock #Transaminitis-improving #Acute kidney injury #Obstructing nephrolithiasis status post nephrostomy tube #Urinary tract infection #Stenotrophomonas maltophilia Case was discussed with attending physician, Dr Margaret Flynn MD PGY-1 Disclaimer: This note was dictated by speech recognition. Minor errors in wharf builder may be present due to voice recognition software. 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 Eyes open, symmetrical, & clear CARDIO: No chest pain on palpation. Heart RRR, no obvious murmurs PULM: No noted coughing/dyspnea. Lungs CTA B/L, no R/W/R GI: Abdomen soft, nondistended, tender to palpation in left and right lumbar quadrants as well as epigastric. BSx4 URO/EMBROIDERY WORKER: Bilateral nephrostomy tube in place with purulent like residue SKIN/MSK/EXT: No wounds/rashes/edema/amputations, no pain on palpation. Pedal pulses present B/L Discharge Plan Prescriptions/Referrals Prescriptions/Med Rec: No Action ascorbic acid (vitamin C) [Vitamin C] 500 MG tablet 500 mg PO BID Qty: 0 cholecalciferol (vitamin D3) [Vitamin D3] 1,000 UNIT tablet 1,000 unit PO QDAY Qty: 0 glucosamine HCl 500 mg Tablet 1,000 mg PO QAM cyanocobalamin (vitamin B-12) [Vitamin B-12] 1,000 mcg Tablet 1,000 mcg PO QDAY aspirin 81 mg Tablet,Delayed Release (Dr/Ec) 81 mg PO QDAY albuterol 90 mcg/actuation Aerosol 90 mcg INHALATION [id number] PRN (Reason: Wheezing) Januvia 100 mg Tablet 100 mg PO QDAY ferrous sulfate 325 mg (65 mg iron) Tablet,Delayed Release (Dr/Ec) 325 mg PO DAILY Qty: 30 0RF ondansetron HCl 4 mg Tablet 4 mg PO Q6H PRN (Reason: Nausea) pantoprazole [Protonix] 40 mg Tablet,Delayed Release (Dr/Ec) 40 mg PO QDAY diphenhydramine HCl [Benadryl Allergy] 25 mg Tablet 25 mg PO Q12HR PRN (Reason: Itching) ipratropium-albuterol 18-103 mcg/actuation Aerosol 2 spray INHALATION Q6HR PRN (Reason: Shortness Of Breath Or Wheezing) melatonin 5 mg Tablet 5 mg PO HS PRN (Reason: Sleep) magnesium oxide 400 mg magnesium Tablet 400 mg PO QDAY Referrals: Prasanna Morrell MD [Primary Care Provider] - Patient/Caregiver Discharge Instructions Print Language: Mongolian Quality Discharge Quality Measures VTE prophylaxis
--- NOTE | 2024-10-31 14:21 | PC.CC ---
Addendum entered by Neeta Skinner RN 10/31/24 15:34: Arlet from [facility] called back and states they are at capacity for inpt transfers today and we can try again tomorrow, Spoke to Dr. Alvarado who states that patient can wait for [facility] to have a bed available, will reassess and reach out to [facility] tomorrow Addendum entered by Neeta Skinner RN 10/31/24 15:24: Spoke to Arlet at [facility] about possible transfer, she states she will talk to [facility] and call back Original Note: Received order to transfer patient at this time, called [facility] left, chart faxed will wait for call back
--- NOTE | 2024-10-31 15:51 | ECHO_ITS ---
Transthoracic Echo Report Ht (in): 63 Wt (lb): 200 Exam Location: Portable Status: Inpatient Chief Operator Hydroformer: DALLAS Mckenzie^^^^ Indications: Procedure Performed: BP: 102 / 69 HR: 118 Technical Quality: Technically difficult study MEASUREMENTS (Male / Female) Normal Values 2D ECHO LV Diastolic Diameter PLAX 4.3 cm 4.2 - 5.9 / 3.9 - 5.3 cm LV Systolic Diameter PLAX 2.6 cm IVS Diastolic Thickness 0.6 cm 0.6 - 1.0 / 0.6 - 0.9 cm LVPW Diastolic Thickness 0.9 cm 0.6 - 1.0 / 0.6 - 0.9 cm LV Relative Wall Thickness 0.4 LVOT Diameter 2.0 cm Aortic Root Diameter 3.6 cm LA Systolic Diameter LX 2.4 cm 3.0 - 4.0 / 2.7 - 3.8 cm LV Ejection Fraction MOD 4C 63.4 % LV Cardiac Index MOD 4C 5108.0 cm?/min?m? LV Ejection Fraction 4C AL 64.8 % LV Cardiac Index 4C AL 5371.9 cm?/min?m? LA Volume Index 18.8 cm?/m? 16 - 28 cm?/m? DOPPLER AV Peak Velocity 139.5 cm/s AV Peak Gradient 7.8 mmHg AV Mean Gradient 4.0 mmHg AV Velocity Time Integral 25.1 cm LVOT Peak Velocity 118.0 cm/s LVOT Peak Gradient 5.6 mmHg LVOT Velocity Time Integral 30.1 cm LVOT Cardiac Index 5445.6 cm?/min?m? AV Area Cont Eq vti 3.8 cm? AV Area Cont Eq pk 2.7 cm? MV Area PHT 3.5 cm? Mitral E Point Velocity 72.1 cm/s Mitral A Point Velocity 92.2 cm/s Mitral E to A Ratio 0.8 LV E' Lateral Velocity 11.2 cm/s Mitral E to LV E' Lateral Ratio 6.4 LV E' Septal Velocity 10.0 cm/s Mitral E to LV E' Septal Ratio 7.2 TR Peak Velocity 196.0 cm/s TR Peak Gradient 15.4 mmHg FINDINGS Left Ventricle Normal left ventricular size, wall thickness, systolic function with no obvious regional wall motion abnormalities. There is grade I diastolic dysfunction of the left ventricle (impaired relaxation pattern). The left ventricular ejection fraction is normal, estimated at 55-60%. Right Ventricle The right ventricle is normal in size and systolic function. The estimated right ventricular systolic pressure, 25 mmHg. Left Atrium The left atrium is normal by two-dimensional, color flow and Doppler imaging with no structural abnormalities, no thrombus formation present. Right Atrium The right atrium is normal by two-dimensional imaging, color flow and Doppler imaging with no structural abnormalities, no thrombus formation present. Atrial Septum The interatrial septum appears normal with no evidence of a shunt. Aorta The aorta is normal by two-dimensional, color flow and Doppler interrogation. Mitral Valve Trace to mild mitral regurgitation. Mild mitral annular calcification. Aortic Valve The aortic valve is trileaflet and normal by two-dimensional, color flow and Doppler interrogation. There is no significant aortic valve regurgitation. Tricuspid Valve There is mild tricuspid valve regurgitation. Pulmonic Valve Trivial pulmonic valve regurgitation. Vessels The pulmonary artery appears normal. The inferior vena cava pulmonary and hepatic veins appear normal. Pericardium There is a small pericardial effusion. CONCLUSIONS Indication: Shock Normal LV size and function with an estimated ejection fraction of 55 to 60% normal diastolic function. Normal RV size and function with estimated RVSP normal at around 25 to 30- minute millimeters mercury. Mild MR and TR with mild MAC. Small pericardial effusion without any evidence of any cardiac tamponade Price Lynch (Electronically Signed) Final Date: 31 October 2024 23:06
[2024-11-01] VITALS (62 sets, daily range): BP systolic 90–142; BP diastolic 44–77; PULSE 53–103; RESP 12–25; TEMP 36.3–37.2; O2SAT 86–99
[2024-11-01] MEDS: oxyCODONE/APAP 5/325 TABLET 1 TAB PO ×3 (04:38→22:21)
[2024-11-01] MEDS: ONDANSETRON INJ 2 MG/ML INJ 2 ML 4 MG IV ×3 (04:40→22:20)
[2024-11-01] MEDS: MIDODRINE 5 MG TABLET 10 MG PO ×3 (05:01→22:21)
[2024-11-01 06:15] LABS: Albumin/Globulin Ratio 1.4 (1.2-2.2); Alkaline Phosphatase 117 U/L (46-116); Anion Gap 7 (7-16); Aspartate Amino Transferase 11 U/L (0-34); BUN/Creatinine Ratio 11 Ratio (12-20); Bilirubin,Total < 0.2 mg/dL (0.3-1.2); Blood Urea Nitrogen 19 mg/dL (9-23); Calcium 8.2 mg/dL (8.3-10.6); Carbon Dioxide 24.4 mMol/L (20.0-31.0); Chloride 109 mMol/L (98-107); Creatinine (Component) 1.8 mg/dL (0.6-1.3); Estimated Creatinine Clearance 31.7 mL/min (>60); Globulin 2.1 gm/dL (2.3-3.5); Glucose 75 mg/dL (74-106); Osmolality,Calculated 280 (275-295); Potassium 3.8 mMol/L (3.4-5.1); Sodium 140 mMol/L (136-145); Total Protein 5.1 gm/dL (5.7-8.2); eGFR 30 See Note
[2024-11-01 06:21] LABS: Basophils % (Auto) 1 % (0-2.5); Eosinophils # (Auto) 0.3 Thou/mm3 (0.0-0.5); Eosinophils % (Auto) 8 % (0-10); Hematocrit 25.4 % (36.0-46.0); Immature Granulocytes % (Auto) 1 % (0-0); Immature Granulocytes Auto 0.05 Thou/mm3 (0.00-0.00); Lymphocytes # (Auto) 0.9 Thou/mm3 (1.0-4.8); Lymphocytes % (Auto) 21 % (10-50); Mean Corpuscular HGB Conc 31.9 g/dl (31.0-37.0); Mean Corpuscular Hemoglobin 28.5 pg (25.0-35.0); Mean Corpuscular Volume 89 fL (80-100); Monocytes # (Auto) 0.4 Thou/mm3 (0.0-0.8); Monocytes % (Auto) 10 % (0-12); Neutrophils # (Auto) 2.5 Thou/mm3 (1.8-7.7); Neutrophils % (Auto) 59 % (37-80); Nucleated Red Blood Cell % 0 /100 WBC (0); Platelet Count 266 Thou/mm3 (140-440); Red Blood Count 2.84 Miln/mm3 (4.00-5.20); White Blood Count 4.2 Thou/mm3 (3.6-11.0)
[2024-11-01 06:25] LABS: Alanine Aminotransferase < 7 U/L (10-49)
[2024-11-01 06:33] LABS: Hemoglobin 8.1 g/dL (12.0-16.0)
--- NOTE | 2024-11-01 08:27 | PC.CC ---
Addendum entered by Sukhwinder Vasquez RN 11/01/24 20:08: 2006 spoke to Esthela at [facility] and informed her that pt is refusing to be transferred to [facility]. She stated she will close the case. Addendum entered by Sukhwinder Vasquez RN 11/01/24 20:05: 1950 I went to pt room with Amber MACIAS and spoke to patient. I explained her that I tried [facility] and they declined and stated to call IR directly. I also reach out to [facility] IR and send all the clinicals and they never returned my call. I also explained I tried [facility]. But she is still adamant about going to [facility] and wants me to try calling [facility] IR in morning. 1945 house supp informed me that pt doesn't want to go to [facility]. She wants to go to [facility] instead. Addendum entered by Sukhwinder Vasquez RN 11/01/24 19:34: 1932 transfer packet is complete with 2 CD's inside. Only pending pt signature. Notified bedside nurse of the transfer packet on transfer nurse desk and pending bed availability. Addendum entered by Sukhwinder Vasquez RN 11/01/24 18:48: 1843 spoke to Cyndi at [facility]. She stated pt is accepted at [facility]. Accepted by Arian Brasher. Now pending for bed. Addendum entered by Sukhwinder Vasquez RN 11/01/24 18:46: 1754 received call from Cyndi at [facility]. She stated her provider Arian Brasher is on the line and want to speak to Dr. Gomez for peer to peer. Conference call connected. Addendum entered by Sukhwinder Vasquez RN 11/01/24 17:00: 1655 received call from Ashutosh at [facility]. She stated IR is not distribution lead but she discussed the case with internal medicine and they are recommending pt should go back to [facility] where it was originally placed. Addendum entered by Sukhwinder Vasquez RN 11/01/24 16:52: 1642 Diana from [facility] called and I gave her verbal clinicals. Addendum entered by Sukhwinder Vasquez RN 11/01/24 15:37: 1537 clinicals sent to [facility]. Addendum entered by Sukhwinder Vasquez RN 11/01/24 15:31: 1523 Called [facility], spoke to Cyndi and initiated the transfer. She stated to fax clinicals and her direct contact number is [phone]. Addendum entered by Sukhwinder Vasquez RN 11/01/24 15:22: 1517 Called [facility], spoke to Ashutosh and initiated the transfer. Addendum entered by Sukhwinder Vasquez RN 11/01/24 14:56: 1455 clinicals sent to [facility]. Addendum entered by Sukhwinder Vasquez RN 11/01/24 14:19: 1418 called Martha IR master fire control technician at [facility] for the transfer update, left VM. Addendum entered by Sukhwinder Vasquez RN 11/01/24 12:17: 1217 Faxed physician order, H&P and face sheet to [facility] IR at [phone]. Addendum entered by Sukhwinder Vasquez RN 11/01/24 11:11: 1104 called Martha IR master fire control technician at [facility] for the transfer request. She stated to fax physician order, H&P and face sheet to [phone]. Addendum entered by Sukhwinder Vasquez RN 11/01/24 11:03: [address] Emanuel that she spoke to IR Dr. Julio at [facility] and he agrees on doing procedure on the pt and pt to come back at [facility]. Dr. Emanuel also informed be that Dr. Julio also want to speak to Dr. Roy first. Addendum entered by Sukhwinder Vasquez RN 11/01/24 11:01: [address] Coker regarding finding out who did the previous procedure on the pt per physician notes, Dr. Madsen (pt urologist) at [facility] recommended to be replaced by the same IR to initially placed it in. Dr. Coker stated his residents can find out for me. Addendum entered by Sukhwinder Vasquez RN 11/01/24 10:30: 0845 I called again [facility] IR department and no answer, unable to speak to anyone. 0840 received call from Zafar at [facility]. She stated transfer is declined for inpatient. She also stated to coordinate with [facility] IR for procedure. She transferred me to IR, no answer, unable to speak to anyone. Original Note: 08 Called [facility] to follow up on the tranfer, left VM.
[2024-11-01] MEDS: SODIUM CHLORIDE 0.9% 1000 ML 1,000 ML 999 ML IV (09:34)
[2024-11-01] MEDS: WATER IV ×2 (09:34→22:21)
[2024-11-01] MEDS: SMX IV ×2 (09:34→22:21)
[2024-11-01] MEDS: TMP IV ×2 (09:34→22:21)
[2024-11-01] MEDS: PANTOPRAZOLE INJ 40 MG VIAL IV (09:34)
[2024-11-01] MEDS: DEXTROSE 5% IV ×2 (09:34→22:21)
--- NOTE | 2024-11-01 10:25 | PC.SS ---
Update: Patient is pending transfer to switch out nephrostomy tube. Patient is on RA. Patient is on P.O. feeds. Pressure support has been discontinued. No skin issues. Patient is afrebile. Bal cath in place. Patient receiving i.v. antibiotics. Patient in possession of malia cath on right side chest.
--- NOTE | 2024-11-01 10:50 | ESPR_ITS ---
Documentation for date of: 11/01/24 Subjective Subjective Interval history: Patient is a 69-year-old female with past medical history of endometrial cancer on chemo and radiotherapy, history of recurrent blood transfusion due to blood loss anemia from uterine bleeding, history of COPD, diabetes, bilateral obstructive nephrolithiasis status post bilateral nephrostomy was admitted to ICU due to septic shock. Patient received multiple boluses, however MAP was below 65, at that point patient started on Levophed. Chest x-ray was positive for PNA as well as UA was consistent for UTI. Patient was admitted to ICU for septic shock treatment and management, continue supportive vasopressors, cover with antibiotics, will follow-up with the cultures. 10/28/2024. Patient seen and examined at bedside. Acute overnight events. At bedside today, patient reports some pain in her knees and hips as well as some discomfort in the abdomen. Other than that, nausea and vomiting since admission. For septic shock, she was started on Levophed and at bedside is currently on 0.07, note that she received a total of 4 L of fluids since admission. With a bedside ultrasound, check patient's IVC for collapsibility and evaluate fluid requirements. Labs reviewed, creatinine 2.2 today, minimally improved from yesterday but patient had good urine output about 1.6 L since admission. Currently on IV Zosyn for urosepsis, nephrostomy tubes inspected, no pus seen. Will continue IV Zosyn, pending urine and blood cultures. 10/29/2024; patient was seen and examined at bedside Overnight MAP <65 and patient started on levophed small dose, in morning pressor was Dc and cheetah monitor was placed, she was responsive to fluids and recieved 2 L of LR. started Midodrine 10 TID, plan is to continue monitore hemdinamcs and if she remained off of pressors and map is in acceptable rage she will be downgraded to floors. renal panel is the same, she made total 500 ml of UO, she is having adequate UO after fluids. Urine still cloudy, UC still pending plan is to continue monitoring hymodinams, continue abx, follow cultures, still pending. 10/30/2024- Patient seen and examined at bedside. Overnight, was said to have been hypotensive with MAP in the mid to high 50s and was restarted on Levophed. At bedside this morning, patient's endorses some nausea, no vomiting but is still having tarry bowel movements multiple times a day. Cheetah put on, SVI about 20%. Bedside ultrasound shows collapsible IVC and patient received another liter of LR. Currently on Levophed at 0.01. Will reevaluate hemodynamic status after fluids and make a decision on additional clinical evidence. CT abdomen and pelvis reviewed again showing early sigmoid diverticulitis. Labs reviewed, creatinine improved at 1.9. Urine culture showed gram-negative rods, pending final. Will continue IV antibiotics Zosyn and continue to down titrate on pressor requirements. 10/31/2024- Patient seen and examined at bedside. Overnight, had a temperature up to 100.7 with associated chills. Also had complaints of chest pressure-like pain radiating to the neck which is intermittent, severity about 5. Urine culture returned positive for stenotrophomonas maltophilia with Bactrim is drug of choice. Suspected to be colonization/infection from nephrostomy tubes and IR has been consulted for changing of the tubes. In the interim, we will keep the patient on high-dose Bactrim. Repeated urine cultures, WBC normal creatinine slightly improved at 1.8. 11/01/2024: Patient was seen and examined at bedside this morning. No acute overnight events. Patient's creatinine is still a today give 1 L of fluid at this time as patient is still not euvolemic. Transfer nurse stated that patient transferred to [facility] was most likely not be possible as they did not have any beds available, but that if interventional radiologist at [facility] could accept the patient to get the procedure done and have the patient transferred back to our hospital this could be done. Contacted interventional radiologist at the [facility] who agreed to speak with our interventional neurologist for possible transferring of patient for nephrostomy tube change and then transfer back to our hospital. Repeat urine culture is still pending. This evening transfer nurse called ICU and stated that transfer to [facility] was unsuccessful and is going to expand the search to other hospitals in the area. At this time patient does not need ICU level of care therefore will be downgraded to the medical floors. Exam Vital Signs Temp Pulse Resp BP Pulse Ox O2 Del Method O2 Flow Rate 97.3 F 69 20 95/61 96 Room Air 3 11/01/24 08:02 11/01/24 10:00 11/01/24 10:00 11/01/24 10:00 11/01/24 10:00 11/01/24 08:02 10/31/24 13:00 Narrative Exam Physical exam performed with custom harvester at bedside. General: A/O x3, no acute distress, well-nourished, well-developed Eyes: PERRL, EOMI. Anicteric, vision grossly intact. Ears: No ear pain, no ear discharge, Hearing grossly intact. Nose: No nasal discharge. Mouth/Throat: Moist mucous membranes, no redness, no lesions. Neck: Neck supple, non-tender, no cervical lymphadenopathy. Lungs: Clear JERMAINE to auscultation and percussion, No accessory muscle use. Cardio: Normal S1/S2, regular rhythm, no murmurs, no JVD Abdomen: Soft, mildly tender to palpation all throughout, no palpable masses, peristalsis present, no guarding or rebound. Extremities: Symmetrical, no significant deformities, no peripheral edema , non-tender, peripheral pulses presents. Uro-/PALEOLOGY TEACHER: Bilateral nephrostomy tubes in place with good drainage, no bleeding or rashes in the genital area Skin: No rashes, no lesions, warm to touch. Neuro: No focal neurological deficits. Psych: Cooperative, appropriate mood and effect. Objective Labs 11/06/24 04:15 11/06/24 04:15 Labs: Laboratory Results - last 24 hr 11/01/24 11/01/24 04:49 05:49 WBC 4.2 RBC 2.84 L Hgb 8.1 L Hct 25.4 L MCV 89 MCH 28.5 MCHC 31.9 RDW Std Deviation 54.0 H Plt Count 266 D Neut % (Auto) 59 Lymph % (Auto) 21 Catron % (Auto) 10 Eos % (Auto) 8 Baso % (Auto) 1 Neut # (Auto) 2.5 Lymph # (Auto) 0.9 L Catron # (Auto) 0.4 Eos # (Auto) 0.3 Baso # (Auto) 0.0 Immature Gran # (Auto) 0.05 H Absolute Nucleated RBC 0.00 Immature Gran % 1 H Nucleated RBC % 0 Sodium 140 Potassium 3.8 Chloride 109 H Carbon Dioxide 24.4 Anion Gap 7 BUN 19 Creatinine 1.8 H Estim Creat Clear Calc 31.7 L eGFR 30 L BUN/Creatinine Ratio 11 L Glucose 75 Calculated Osmolality 280 Calcium 8.2 L Corrected Calcium 9.0 Total Bilirubin < 0.2 L AST 11 ALT < 7 L Alkaline Phosphatase 117 H Total Protein 5.1 L Albumin 3.0 L Globulin 2.1 L Albumin/Globulin Ratio 1.4 Quality Measures Quality Measures VTE prophylaxis Advance care planning discussed with:: patient Assessment & Plan Assessment Current Active Medications: Generic Name Dose Route Start Last Admin Trade Name Freq PRN Reason Stop Dose Admin Acetaminophen 650 mg 10/27/24 12:57 Acetaminophen 325 Mg Tablet PO 11/26/24 12:56 Q4HR PRN PAIN SCALE 1-3 (mild Acetaminophen 650 mg 10/27/24 12:57 Acetaminophen Supp 650 Mg Supp WA 11/26/24 12:56 Q4HR PRN PAIN SCALE 1-3 (mild Hydrocodone Bitart/Acetaminophen 1 tab 10/28/24 09:17 10/30/24 19:20 Hydrocodone/Apap 5/325 Tablet PO 11/02/24 09:16 1 tab Q6HR PRN Administration Pain 4-6 Al Hydrox/Mg Hydrox/Simethicone 30 ml 10/27/24 12:57 Mg Hyd/Al Hyd/Bety (Maalox Reg) Susp 30 Ml Udc PO 11/26/24 12:56 Q4HR PRN Heartburn or Upset Stomach Heparin Sodium (Porcine) 5,000 unit 10/30/24 16:15 10/31/24 06:01 Heparin Sod Inj 5000 Unit/Ml Vial SC 11/13/24 16:14 5,000 unit Q8HR JESSICA Administration Norepinephrine/Dextrose 8 mg in 250 mls @ 8.066 mls/hr 10/27/24 12:35 10/31/24 17:00 Levophed In D5w 8mg/250ml IV 11/26/24 12:34 0 mcg/kg/min .Q24H PRN 0 mls/hr PER PROTOCOL Titration Protocol 0.05 MCG/KG/MIN Trimethoprim/Sulfamethoxazole 105 mls @ 105 mls/hr 10/30/24 17:30 11/01/24 09:34 5 ml/ Dextrose IV 11/06/24 17:29 105 mls/hr BID JESSICA Administration Magnesium Hydroxide 30 ml 10/27/24 12:57 Milk Of Magnesia Susp 30 Ml Udc PO 11/26/24 12:56 QDAY PRN CONSTIPATION Midodrine 10 mg 10/29/24 07:00 11/01/24 05:01 Midodrine 5 Mg Tablet PO 11/28/24 06:59 10 mg TID JESSICA Administration Nitroglycerin 0.4 mg 10/27/24 12:57 Nitroglycerin 0.4 Mg Subl Btl #25 SL Q5MIN PRN CHEST PAIN Ondansetron HCl 4 mg 10/28/24 10:36 11/01/24 04:40 Ondansetron Inj 2 Mg/Ml Inj 2 Ml IV 11/27/24 10:35 4 mg Q6HR PRN Administration NAUSEA OR VOMITING Protocol Oxycodone/Acetaminophen 1 tab 10/28/24 09:10 11/01/24 04:38 Oxycodone/Apap 5/325 Tablet PO 11/02/24 09:09 1 tab Q6HR PRN Administration Pain 7-10 Pantoprazole Sodium 40 mg 10/27/24 15:45 11/01/24 09:34 Pantoprazole Inj 40 Mg Vial IV 11/26/24 15:44 40 mg QDAY JESSICA Administration Plan 69-year-old female with a past medical history of endometrial cancer on chemo and radiotherapy, history of recurrent blood transfusions due to blood loss anemia from uterine bleeding, COPD, DM2, unspecified colitis and bilateral obstructing nephrolithiasis status post bilateral nephrostomy was admitted to the ICU on 10/27/2024 due to 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 Initially lactic acid was normal with slightly elevated procalcitonin at 1.4 Patient has received a total of 4 L of IV fluids throughout hospital stay Patient received Levophed throughout the hospital stay, but was stopped on 10/31/2024 at 1700. Will continue with midodrine 10 mg 3 times daily Will continue with Bactrim [10/30/2024 - 11/06/2024] Respiratory #History of COPD Per chart review, the patient has a history of COPD and is on albuterol inhalers at home. Continue albuterol GI #Transaminitis-resolved On admission AST 45 and ALP of 165. Renal #Acute kidney injury, prerenal Patient came in with poor oral intake along with nausea and vomiting as well as hypotension Admission, creatinine at 2.3, baseline about 1.0-1.3. 4 L of IV fluids throughout the hospital stay Having good output from nephrostomy tubes. Will give 1 L of IV fluids today #Hyponatremia-resolved #Hyperkalemia-resolved Urology #Obstructive nephrolithiasis status post nephrostomy tube #Urinary tract infection #Stenotrophomonas maltophilia Per patient's, about a month ago due to recurrent urinary tract infections and bilateral renal calculi, she had bilateral nephrostomy tube placed in [facility]. In-house IR could not change patient's nephrostomy tubes therefore transfer was initiated after speaking with patient's urologist who stated that it would be best patient went to [facility] to have these change. Spoke with interventional radiologist at [facility] today for possible transfer for nephrostomy tube change and then transferred back to our hospital, will get in contact with transfer nurse to arrange possible transfer. Will continue with Bactrim for now Pending repeat urine culture Endocrinology #History of type II DM As A1c was 5.9 we will hold off on send the patient on insulin or sliding scale for now as blood sugars have been well-controlled throughout the hospital stay. Continue with blood glucose checks every 6 hours Hematology # Hx of anemia Hemoglobi at 11.3 on admission Hgb 8.1 today most likely hemodilutional as there are no active signs of bleeding Hospital Maintenance: Diet: NPO DVT ppx: Heparin sc on hold in anticipation of IR procedure GI ppx: Pantoprazole IV lines: PIV Bal: In situ with bilateral nephrostomy tubes Code status: Full code Dispo: Downgraded to medical floors. Case disclosed with Attending Dr. Sheela Hidalgo PGY1 Attending Provider Attestation/Addendum Patient seen and examined with the above resident, Rik Hidalgo MD. I agree with the findings, assessment, and plan of care as documented except for any differences below. Patient continues to do well at this time with resolving sepsis. Initiated on bactrim with ability to wean off vasopressor support likely a reflection of adequate antibiotic response. However will still benefit from exchange of her nephrostomy drain. She is frustrated on pending transfer but appreciative of continued efforts. Declined by in house IR due to inadequate place with drainage of hydronephrosis. Urology is in [place] and thus trying to send her to [facility] for continuity of care with IR there to intervene with ultimately needing urology intervention. Was to follow up in clinic in coming days but due to acute illness readmitted to the hospital. She did ask EMS to take her to [facility] but for stabilization they brought her to our facility first. Patient otherwise having return of appetite and remains stable for transfer. Can also be downgraded to medical hector if availability of lower grade setting become open instead of an ICU bed. Total critical care time: I personally spent 30 minutes for review of physiologic parameters, directing plan of care, coordination of care, and counseling patient at the bedside. This is exclusive of time spent teaching housestaff or performing any separate billable procedures. She continued to require critical care services for complicated UTI with spetic shock. She remained at significant risk for further morbidity or moartality warranting clos emonitoring and care only available in the ICU.
--- NOTE | 2024-11-01 10:51 | CHAP ---
Patient was visited by a Spiritual Care Volunteer on 11/01/2024 between 0900 and 0930 and received comfort, encouragement and/or prayer.
--- NOTE | 2024-11-01 19:10 | ESPR_ITS ---
Documentation for date of: 11/01/24 Subjective Subjective Interval history: Patient is a 69-year-old female with a past medical history of endometrial cancer on chemo and radiation with last round in August 2024 pending follow-up with oncology in 3 months to determine course, history of recurrent blood transfusion due to chronic anemia, history of COPD,, diabetes mellitus type 2, bilateral obstructive nephrolithiasis status post bilateral nephro ostomy tube. Patient was admitted on October 27, 2024 for septic shock directly to ICU likely source secondary to nephrostomy tubes. Patient now pending transfer to [facility] after midnight for possible removal of nephrostomy [facility]. May have dinner on November 01, 2024. Patient denied any chest pain or fevers overnight. Patient is still able to urinate but noted to have some hematuria in [place], which patient stated is chronic likely secondary to endometrial cancer. Patient is a ICU downgrade off of pressors. Patient will continue antibiotics on Bactrim started on 10/30/2024. Pending Transfer. Exam Vital Signs Temp Pulse Resp BP Pulse Ox O2 Del Method O2 Flow Rate 97.6 F 69 20 122/62 94 L Room Air 3 11/01/24 16:01 11/01/24 18:30 11/01/24 18:30 11/01/24 18:30 11/01/24 18:30 11/01/24 16:01 10/31/24 13:00 Narrative Exam General Appearance: Alert & Oriented X3, well-nourished female who is lying in bed in no acute distress HEENT: Skull symmetrical and atraumatic. Conjunctivae pin and moist. Pupils equal, round, reactive to light and accommodation (PERRL). External ear without lesion or discharge. Straight, nares patient, mucosa pink, no discharge. No thyroid nodule appreciated. No cervical lymphadenopathy. Cardio: Normal Rate and Rhythm with S1 and S2 heart sounds. No murmurs or extra heart sounds auscultated. No bruits on carotid auscultation. No peripheral edema or cyanosis. Lungs: Symmetric with good expansion. Chest and back non-tender. Breath sounds vesicular without crackles, wheezing or rhonchi Abdomen: Non-tender, Non-distended, Normal Reactive Bowel Sounds, mild tenderness at bilateral flanks. Neuro: Alert, cooperative, oriented to person, place, and time. Speech clear. CN grossly intact. Upper motor strength 5/5 and Lower motor strength 5/5. Sensation intact. Objective Labs 11/03/24 08:50 11/03/24 04:30 Labs: Laboratory Results - last 24 hr 11/01/24 11/01/24 04:49 05:49 WBC 4.2 RBC 2.84 L Hgb 8.1 L Hct 25.4 L MCV 89 MCH 28.5 MCHC 31.9 RDW Std Deviation 54.0 H Plt Count 266 D Neut % (Auto) 59 Lymph % (Auto) 21 [place] % (Auto) 10 Eos % (Auto) 8 Baso % (Auto) 1 Neut # (Auto) 2.5 Lymph # (Auto) 0.9 L [place] # (Auto) 0.4 Eos # (Auto) 0.3 Baso # (Auto) 0.0 Immature Gran # (Auto) 0.05 H Absolute Nucleated RBC 0.00 Immature Gran % 1 H Nucleated RBC % 0 Sodium 140 Potassium 3.8 Chloride 109 H Carbon Dioxide 24.4 Anion Gap 7 BUN 19 Creatinine 1.8 H Estim Creat Clear Calc 31.7 L eGFR 30 L BUN/Creatinine Ratio 11 L Glucose 75 Calculated Osmolality 280 Calcium 8.2 L Corrected Calcium 9.0 Total Bilirubin < 0.2 L AST 11 ALT < 7 L Alkaline Phosphatase 117 H Total Protein 5.1 L Albumin 3.0 L Globulin 2.1 L Albumin/Globulin Ratio 1.4 Quality Measures Quality Measures VTE prophylaxis Advance care planning discussed with:: patient Assessment & Plan Assessment Current Active Medications: Generic Name Dose Route Start Last Admin Trade Name Freq PRN Reason Stop Dose Admin Acetaminophen 650 mg 10/27/24 12:57 Acetaminophen 325 Mg Tablet PO 11/26/24 12:56 Q4HR PRN PAIN SCALE 1-3 (mild Acetaminophen 650 mg 10/27/24 12:57 Acetaminophen Supp 650 Mg Supp MI 11/26/24 12:56 Q4HR PRN PAIN SCALE 1-3 (mild Hydrocodone Bitart/Acetaminophen 1 tab 10/28/24 09:17 10/30/24 19:20 Hydrocodone/Apap 5/325 Tablet PO 11/02/24 09:16 1 tab Q6HR PRN Administration Pain 4-6 Al Hydrox/Mg Hydrox/Simethicone 30 ml 10/27/24 12:57 Mg Hyd/Al Hyd/Bety (Maalox Reg) Susp 30 Ml Udc PO 11/26/24 12:56 Q4HR PRN Heartburn or Upset Stomach Heparin Sodium (Porcine) 5,000 unit 10/30/24 16:15 10/31/24 06:01 Heparin Sod Inj 5000 Unit/Ml Vial SC 11/13/24 16:14 5,000 unit Q8HR JESSICA Administration Norepinephrine/Dextrose 8 mg in 250 mls @ 8.066 mls/hr 10/27/24 12:35 10/31/24 17:00 Levophed In D5w 8mg/250ml IV 11/26/24 12:34 0 mcg/kg/min .Q24H PRN 0 mls/hr PER PROTOCOL Titration Protocol 0.05 MCG/KG/MIN Trimethoprim/Sulfamethoxazole 105 mls @ 105 mls/hr 10/30/24 17:30 11/01/24 11:00 5 ml/ Dextrose IV 11/06/24 17:29 Infused BID JESSICA Infusion Magnesium Hydroxide 30 ml 10/27/24 12:57 Milk Of Magnesia Susp 30 Ml Udc PO 11/26/24 12:56 QDAY PRN CONSTIPATION Midodrine 10 mg 10/29/24 07:00 11/01/24 13:51 Midodrine 5 Mg Tablet PO 11/28/24 06:59 10 mg TID JESSICA Administration Nitroglycerin 0.4 mg 10/27/24 12:57 Nitroglycerin 0.4 Mg Subl Btl #25 SL Q5MIN PRN CHEST PAIN Ondansetron HCl 4 mg 10/28/24 10:36 11/01/24 11:18 Ondansetron Inj 2 Mg/Ml Inj 2 Ml IV 11/27/24 10:35 4 mg Q6HR PRN Administration NAUSEA OR VOMITING Protocol Oxycodone/Acetaminophen 1 tab 10/28/24 09:10 11/01/24 11:19 Oxycodone/Apap 5/325 Tablet PO 11/02/24 09:09 1 tab Q6HR PRN Administration Pain 7-10 Pantoprazole Sodium 40 mg 10/27/24 15:45 11/01/24 09:34 Pantoprazole Inj 40 Mg Vial IV 11/26/24 15:44 40 mg QDAY JESSICA Administration Plan Patient is a 69-year-old female with a past medical history of endometrial cancer on chemo and radiation with last round in August 2024 pending follow-up with oncology in 3 months to determine course, history of recurrent blood transfusion due to chronic anemia, history of COPD,, diabetes mellitus type 2, bilateral obstructive nephrolithiasis status post bilateral nephro ostomy tube who was admitted for Septic Shock secondary source likely bilateral nephrostomy tubes. Patient was downgraded on 11/01/2024 and pending transfer. #Obstructive Nephrolithias s/p nephrostomy tube #Urinary Tract Infection #Stenotrophomonas Maltophlia Patient has a history of nephrolithisas with nephrostomy tubes in place, likley source on septic shock inefection. Blood cultures Negative Urine Cultures: Stenotrophomonas Maltophilia Plan -Tylenol 650 mg Q4HR PRN -Pain Management: Hydrocodone 5 and oxycodone -Bactrim 160-800 mg 10/30/2024 -Pending repeat urine cultures #WARREN Given septic shock, likely pre-renal with a basline Cr of 1.0-1.3 and on admission Cr level of 2.3 w/ BUN/Cr level of 12 but given low BUN/Cr ratio of less than 15, intrinsic renal failure can not be ruled out. Intrinsic renal injury can not be ruled out given RBC 94 and nephrostomy tube BUN 19, Cr 1.8, BUN/Cr 11 (11/01/2024) UA RBC + Plan -Consider gentle hydration AM -Avoid nephrotoxins -Renally dose medicaiton -Consider Renal Ultrasound #Hypotensive Given septic shock, patient has been hypotensive since admission vs pain management medication. Plan -Continue Midodrine 10 mg PO TID -consider reducing Midodrine to 10 mg PO BID, tomorrow. #Normocytic Anemia #Hematuria (?) Patient stated she has a past medical history of chornic anemia, during downgrade Hgb 8.1, Hct 25.4, and MCV 89, which is likely anemia of chronic disease secondary to diabetes vs history of chemotherpay vs possible hematuria noted in [place]. Plan -No acute intervention -Transfuse if Hgb <7 -Type and screen with morning labs -Consider holding heparin if [place] continues to show signs of hematuria -consider oncology consult given history of endometrial cancer #COPD Per chart review past medical history of COPD Plan -Continue home medication of Albuterol inhaler as needed #Diabetes Mellitus Type II, non-insulin dependent A1c on admission 4.8 whos home medicaiton include Sonja. Plan: -Follow fasting Blood glucose -consider Lispro sliding scale #History of Endometrial Cancer -No acute intervention #Hyponatremia-resolved #Hyperkalemia-resolved #MIld Transaminitis #Septic Shock Resolved, secondary to nephrostomy tubes Health Maintenance: Disp: Pt is currently admitted to floors for further management of transfer to [facility] for nephrostomy tube removal. FEN: NPO after midnight, cardiac meal X1 at dinner DVT: on subQ heparin Q8hrs [place] Catheter Code: Full code - The patient's plan was discussed with attending Dr. Tierney and senior residents Dr. Ish Macdonald MD PGY1 Internal Medicine Attending Provider Attestation/Addendum I have discussed and was present for the essential components of the history, physical examination, diagnosis, and treatment plan with the resident. I agree with the patient's care as documented by the resident and amended herein by me. Calvin Tierney DO. Although this document has been carefully reviewed, there may still be some phonetic and other typographical errors. These errors are purely grammatical due to imperfections in the software program and should not be construed in any way to compromise the substance of the patient's medical care during this visit.
--- NOTE | 2024-11-01 19:58 | PC.NURSE ---
Transfer RN Sukhwinder came to bedside to explain to the patient about her transfer acceptance to [facility] pending a open bed. Patient stated she only wants to go to [facility]. RN explained about her multiple attempts to transfer patient to [facility] as the patient requested and was informed that [facility] has denied her because they are at capacity with no beds available. patient was educated by RN about risks/ benefits of transfer vs waiting to see if [facility] will accept her later. patient states she refuses to go anywhere other than [facility].
[2024-11-01] MEDS: HEPARIN SOD INJ 5000 UNIT/ML VIAL SC (22:20)
[2024-11-02] VITALS (11 sets, daily range): BP systolic 105–115; BP diastolic 50–74; PULSE 54–86; RESP 16–18; TEMP 36.1–36.5; O2SAT 95–97
[2024-11-02] MEDS: HEPARIN SOD LOCK SYR 100 UNIT/ML IV ×2 (00:41→06:20)
[2024-11-02 05:29] LABS: Basophils % (Auto) 1 % (0-2.5); Eosinophils # (Auto) 0.3 Thou/mm3 (0.0-0.5); Eosinophils % (Auto) 8 % (0-10); Hematocrit 24.4 % (36.0-46.0); Immature Granulocytes % (Auto) 2 % (0-0); Lymphocytes # (Auto) 1.1 Thou/mm3 (1.0-4.8); Lymphocytes % (Auto) 25 % (10-50); Mean Corpuscular HGB Conc 32.4 g/dl (31.0-37.0); Mean Corpuscular Hemoglobin 28.5 pg (25.0-35.0); Mean Corpuscular Volume 88 fL (80-100); Monocytes # (Auto) 0.5 Thou/mm3 (0.0-0.8); Monocytes % (Auto) 11 % (0-12); Neutrophils # (Auto) 2.4 Thou/mm3 (1.8-7.7); Neutrophils % (Auto) 54 % (37-80); Nucleated Red Blood Cell % 0 /100 WBC (0); Platelet Count 282 Thou/mm3 (140-440); Red Blood Count 2.77 Miln/mm3 (4.00-5.20); White Blood Count 4.5 Thou/mm3 (3.6-11.0)
[2024-11-02 05:42] LABS: Hemoglobin 7.9 g/dL (12.0-16.0)
[2024-11-02] MEDS: MIDODRINE 5 MG TABLET 10 MG PO ×2 (06:16→21:33)
[2024-11-02] MEDS: HEPARIN SOD INJ 5000 UNIT/ML VIAL SC ×2 (06:16→21:33)
[2024-11-02 07:26] LABS: Alanine Aminotransferase < 7 U/L (10-49); Albumin/Globulin Ratio 1.4 (1.2-2.2); Alkaline Phosphatase 125 U/L (46-116); Anion Gap 9 (7-16); Aspartate Amino Transferase 14 U/L (0-34); BUN/Creatinine Ratio 9 Ratio (12-20); Bilirubin,Total < 0.2 mg/dL (0.3-1.2); Blood Urea Nitrogen 16 mg/dL (9-23); Calcium 8.4 mg/dL (8.3-10.6); Calcium (Corrected) 9.2 mg/dL (8.5-10.1); Carbon Dioxide 22.7 mMol/L (20.0-31.0); Chloride 108 mMol/L (98-107); Creatinine (Component) 1.7 mg/dL (0.6-1.3); Estimated Creatinine Clearance 34.2 mL/min (>60); Globulin 2.2 gm/dL (2.3-3.5); Glucose 70 mg/dL (74-106); Magnesium 1.6 mg/dL (1.6-2.6); Osmolality,Calculated 278 (275-295); Phosphorous 4.2 mg/dL (2.4-5.1); Potassium 3.7 mMol/L (3.4-5.1); Sodium 140 mMol/L (136-145); Total Protein 5.2 gm/dL (5.7-8.2); eGFR 32 See Note
[2024-11-02] MEDS: oxyCODONE/APAP 5/325 TABLET 1 TAB PO ×2 (08:30→18:17)
[2024-11-02] MEDS: ONDANSETRON INJ 2 MG/ML INJ 2 ML 4 MG IV ×2 (08:30→18:16)
[2024-11-02] MEDS: PANTOPRAZOLE INJ 40 MG VIAL IV (08:41)
[2024-11-02] MEDS: POTASSIUM CHLORIDE 20 mEq TABCR PO (08:41)
[2024-11-02] MEDS: WATER IV ×2 (09:15→21:33)
[2024-11-02] MEDS: TMP IV ×2 (09:15→21:33)
[2024-11-02] MEDS: SMX IV ×2 (09:15→21:33)
[2024-11-02] MEDS: DEXTROSE 5% IV ×2 (09:15→21:33)
--- NOTE | 2024-11-02 10:17 | PC.CC ---
Addendum entered by Sukhwinder Vasquez RN 11/02/24 11:38: 1130 called and informed bedside nurse about the number to call report. Bedside nurse is aware that pt is coming back after the procedure. 1122 called Martha body mechanic apprentice at [facility] and informed pick time is 1200 and asked her number to call for report. Which is [phone]. Pt is coming back after the procedure. Addendum entered by Sukhwinder Vasquez RN 11/02/24 11:30: 1120 Lab results are back for PT, INR and APTT. I updated the transfer packet, notified bed side nurse. Addendum entered by Sukhwinder Vasquez RN 11/02/24 11:13: [address] [facility] through [employer]. Called [facility], spoke to [facility] and set up the transport. The picker and packer time is 1200. 1045 transfer packet is complete with 2 CD's inside including all signatures. Notified bedside nurse of the transfer packet. Dr. Tierney is also at bedside and informed need PT, INR and APTT stat. Original Note: 1015 received call from Martha at [facility] that she is scheduled for procedure at 1500 today but she needs to be at [facility] by 1300 in order for prep time. 1009 received call from Martha at [facility] that she has all the clinicals she needs and will call me back to see if they can schedule her today for her procedure.
--- NOTE | 2024-11-02 10:21 | PC.SS ---
Follow up note: Pending higher level of care transfer for nephrostomy tube.
[2024-11-02 11:10] LABS: INR 1.1 (0.9-1.3); Partial Thromboplastin Time 32.4 Seconds (22.0-36.0); Prothrombin Time 11.6 Seconds (9.0-12.2)
[2024-11-02] MEDS: HEPARIN SOD LOCK SYR 100 UNIT/ML 500 UNIT INTRACATH (11:57)
--- NOTE | 2024-11-02 13:36 | PD.RESPRO ---
Documentation for date of: 11/02/24 Exam Vital Signs Temp Pulse Resp BP Pulse Ox O2 Del Method O2 Flow Rate 97.2 F 66 18 105/74 96 Room Air 3 11/02/24 11:52 11/02/24 11:52 11/02/24 11:52 11/02/24 11:52 11/02/24 11:52 11/02/24 11:52 10/31/24 13:00 Objective Labs 11/02/24 04:58 11/02/24 04:58 Labs: Laboratory Results - last 24 hr 11/02/24 04:58 WBC 4.5 RBC 2.77 L Hgb 7.9 L Hct 24.4 L MCV 88 MCH 28.5 MCHC 32.4 RDW Std Deviation 52.0 H Plt Count 282 Neut % (Auto) 54 Lymph % (Auto) 25 [place] % (Auto) 11 Eos % (Auto) 8 Baso % (Auto) 1 Neut # (Auto) 2.4 Lymph # (Auto) 1.1 [place] # (Auto) 0.5 Eos # (Auto) 0.3 Baso # (Auto) 0.0 Immature Gran # (Auto) 0.10 H Absolute Nucleated RBC 0.00 Immature Gran % 2 H Nucleated RBC % 0 PT 11.6 INR 1.1 APTT 32.4 Sodium 140 Potassium 3.7 Chloride 108 H Carbon Dioxide 22.7 Anion Gap 9 BUN 16 Creatinine 1.7 H Estim Creat Clear Calc 34.2 L eGFR 32 L BUN/Creatinine Ratio 9 L Glucose 70 L Calculated Osmolality 278 Calcium 8.4 Corrected Calcium 9.2 Phosphorus 4.2 Magnesium 1.6 Total Bilirubin < 0.2 L AST 14 ALT < 7 L Alkaline Phosphatase 125 H Total Protein 5.2 L Albumin 3.0 L Globulin 2.2 L Albumin/Globulin Ratio 1.4 Blood Type O Positive Antibody Screen POSITIVE Antibody Identification Anti-E Blood Bank Wristband ID Yes Quality Measures Quality Measures VTE prophylaxis Assessment & Plan Assessment Current Active Medications: Generic Name Dose Route Start Last Admin Trade Name Freq PRN Reason Stop Dose Admin Acetaminophen 650 mg 10/27/24 12:57 Acetaminophen 325 Mg Tablet PO 11/26/24 12:56 Q4HR PRN PAIN SCALE 1-3 (mild Acetaminophen 650 mg 10/27/24 12:57 Acetaminophen Supp 650 Mg Supp ND 11/26/24 12:56 Q4HR PRN PAIN SCALE 1-3 (mild Al Hydrox/Mg Hydrox/Simethicone 30 ml 10/27/24 12:57 Mg Hyd/Al Hyd/Bety (Maalox Reg) Susp 30 Ml Udc PO 11/26/24 12:56 Q4HR PRN Heartburn or Upset Stomach Heparin Sodium (Porcine) 5,000 unit 10/30/24 16:15 11/02/24 13:21 Heparin Sod Inj 5000 Unit/Ml Vial SC 11/13/24 16:14 Not Given Q8HR JESSICA Trimethoprim/Sulfamethoxazole 105 mls @ 105 mls/hr 10/30/24 17:30 11/02/24 09:15 5 ml/ Dextrose IV 11/06/24 17:29 105 mls/hr BID JESSICA Administration Magnesium Hydroxide 30 ml 10/27/24 12:57 Milk Of Magnesia Susp 30 Ml Udc PO 11/26/24 12:56 QDAY PRN CONSTIPATION Midodrine 10 mg 10/29/24 07:00 11/02/24 13:21 Midodrine 5 Mg Tablet PO 11/28/24 06:59 Not Given TID [facility] Nitroglycerin 0.4 mg 10/27/24 12:57 Nitroglycerin 0.4 Mg Subl Btl #25 SL Q5MIN PRN CHEST PAIN Ondansetron HCl 4 mg 10/28/24 10:36 11/02/24 08:30 Ondansetron Inj 2 Mg/Ml Inj 2 Ml IV 11/27/24 10:35 4 mg Q6HR PRN Administration NAUSEA OR VOMITING Protocol Pantoprazole Sodium 40 mg 10/27/24 15:45 11/02/24 08:41 Pantoprazole Inj 40 Mg Vial IV 11/26/24 15:44 40 mg QDAY JESSICA Administration
--- NOTE | 2024-11-02 13:37 | PD.RESEVENT ---
Documentation for date of: 11/02/24
--- NOTE | 2024-11-02 14:13 | ESDS_ITS ---
<Statement entered by Jaky Deng MD - 11/02/24 15:14> 69-year-old female with a history of endometrial cancer, currently on chemotherapy and radiation therapy, admitted for septic shock requiring pressor support. History of Present Illness: The patient presented to [facility] in septic shock. After initial evaluation and management, the source of the sepsis was most likely identified as the bilateral nephrostomy tubes. A urine culture revealed Stenotrophomonas maltophilia, #Continue antibiotics (Bactrim), renally dosed, for the treatment of Stenotrophomonas maltophilia infection. #Transfer to [facility] for nephrostomy tube removal/replacement due to the lack of urological services at [facility]. #The transfer will likely occur today. Jaky Deng M.D. PGY-2 Disclaimer: Despite multiple revisions, due to the dictation software being used, the document bellow may not be free of grammatical errors including phonetic/typographic errors. However, this does not deter from our commitment to providing health care in the patient's best interest in mind. Planned Discharge Date 11/02/24 DS: Providers Provider Date of admission: 10/27/24 12:57 Primary care physician: Prasanna Morrell MD Admitting Provider: Kelsey Robles MD Attending Provider on Admission: Kelsey Robles MD Consults: 10/30/24 05:02 Referral Wound Care Stat Comment: bleeding at balbir-area cyst 10/31/24 13:56 Referral - [facility] Stat Service Needed for Transfer: Interventional Radiology Addl Comments:: our IR could not exchange the tube Attending Provider on DC: Christiana Macdonald MD Discharging Provider: Christiana Macdonald MD DS: Diagnosis Problem List Completed Was Problem List Reviewed/Reconciled?: Yes Hospital Course Hospital Course Hospital course: Summary: Patient is a 69-year-old female with a past medical history of endometrial cancer on chemo and radiation with last round in August 2024 pending follow-up with oncology in 3 months to determine course, history of recurrent blood transfusion due to chronic anemia, history of COPD,, diabetes mellitus type 2, bilateral obstructive nephrolithiasis status post bilateral nephro ostomy tube who was admitted for Septic Shock secondary source likely bilateral nephrostomy tubes. Patient was downgraded on 11/01/2024 and pending transfer. ER Vistit: In the ED, patient was initially afebrile, developed a temperature of 101.4, saturating 98% on room air, tachycardic with heart rate in the 130s and blood pressure borderline. Subsequently, blood pressure was seen to be lower. The patient received 2 L of fluid and MAP was consistently lower than 65. Significant labs, hemoglobin 11.3, sodium 131, potassium 5.6, BUN 27, creatinine 2.3 with an EGFR 22, glucose 142, AST 45, ALP 145, Pro-Marcial 1.40, normal lactic acid at 1.5. Analysis was done which showed turbid urine with 3+ protein close positive blood, pyuria and [address] abdomen showed bilateral renal calculi with nephrostomy tubes in good position and mild left hydronephrosis. Chest x-ray showed obscured left lower lobe. Patient is admitted to the ICU for septic shock secondary to urinary tract infections. Hospital Course: Patient is a 69-year-old female who was initially admitted on 10/27/2024 directly into ICU presenting with pyrexia of 101.4, tachycardic in the 130s, and soft blood pressure. Patient was given lactated Ringer's and started on Levophed. Patient started on piperacillin/tazobactam on 10/27/2024. Blood cultures obtained showing no growth. Urine culture showing Stenotrophomonas Maltophilia, sensitive to Bactrim started on 10/29/2024. Vitals continue to improve. Chest x-ray did show early pneumonia left base with negative influenza AMB as well as COVID being negative. Patient denied pleuritic chest pain or cough. CT abdomen showed bilateral renal calculi with bilateral percutaneous nephrostomy tubes in satisfactory position and mild left hydronephrosis. EKG sinus rhythm. On admission patient also had an WARREN with a creatinine level of 2.3 and a base line of 1. WARREN left eye likely multifactorial including obstruction given mild hydronephrosis on the left kidney versus prerenal. Hyponatremia and hyperkalemia continue to improve. Patient has a past medical history of diabetes melitis type II on with an A1c of 4.8 on 10/27/2024. No insulin added during admission as patient's blood glucose have been within satisfactory range between 70 to 140s. Patient was downgraded on to floors on November 01, 2024 with stable vitals off of pressors. Patient is being transferred to [facility] for removal of nephrostomy tubes/replacement as it is likely source of urine culture infection for Stenotrophomonas Maltophilia. Unable to perform inhouse and would benefit of continuity of care as nephrostomy tubes initially placed at [facility]. #Obstructive Nephrolithias s/p nephrostomy tube #Urinary Tract Infection #Stenotrophomonas Maltophlia #WARREN #COPD #Diabetes Mellitus Type II, non-insulin dependent #Hypotensive, improved #Normocytic Anemia #History of Endometrial Cancer #Hyponatremia-resolved #Hyperkalemia-resolved #MIld Transaminitis #Septic Shock Resolved, secondary to nephrostomy tubes - The patient's plan was discussed with attending Dr. Tierney and senior residents Dr. Ish Macdonald MD PGY1 Internal Medicine Time Spent with Patient Time attestation: Total time spent providing and/or coordinating discharge services: at least 30 minutes of care and coordination Exam Vital Signs Temp Pulse Resp BP Pulse Ox O2 Del Method O2 Flow Rate 97.2 F 66 18 105/74 96 Room Air 3 11/02/24 11:52 11/02/24 11:52 11/02/24 11:52 11/02/24 11:52 11/02/24 11:52 11/02/24 11:52 10/31/24 13:00 Narrative Exam General Appearance: Alert & Oriented X3, well-nourished female who is lying in bed in no acute distress HEENT: Skull symmetrical and atraumatic. Conjunctivae pin and moist. Pupils equal, round, reactive to light and accommodation (PERRL). External ear without lesion or discharge. Straight, nares patient, mucosa pink, no discharge. No thyroid nodule appreciated. No cervical lymphadenopathy. Cardio: Normal Rate and Rhythm with S1 and S2 heart sounds. No murmurs or extra heart sounds auscultated. No bruits on carotid auscultation. No peripheral edema or cyanosis. Lungs: Symmetric with good expansion. Chest and back non-tender. Breath sounds vesicular without crackles, wheezing or rhonchi Abdomen: Non-tender, Non-distended, Normal Reactive Bowel Sounds, mild tenderness at bilateral flanks Neuro: Alert, cooperative, oriented to person, place, and time. Speech clear. CN grossly intact. Upper motor strength 5/5 and Lower motor strength 5/5. Sensation intact. Discharge Plan Plan Patient Disposition: Xfer Other Facility Pt Being Transferred to: [facility] Prescriptions/Referrals Prescriptions/Med Rec: No Action ascorbic acid (vitamin C) [Vitamin C] 500 MG tablet 500 mg PO BID Qty: 0 cholecalciferol (vitamin D3) [Vitamin D3] 1,000 UNIT tablet 1,000 unit PO QDAY Qty: 0 glucosamine HCl 500 mg Tablet 1,000 mg PO QAM cyanocobalamin (vitamin B-12) [Vitamin B-12] 1,000 mcg Tablet 1,000 mcg PO QDAY aspirin 81 mg Tablet,Delayed Release (Dr/Ec) 81 mg PO QDAY albuterol 90 mcg/actuation Aerosol 90 mcg INHALATION [id number] PRN (Reason: Wheezing) Januvia 100 mg Tablet 100 mg PO QDAY ferrous sulfate 325 mg (65 mg iron) Tablet,Delayed Release (Dr/Ec) 325 mg PO DAILY Qty: 30 0RF ondansetron HCl 4 mg Tablet 4 mg PO Q6H PRN (Reason: Nausea) pantoprazole [Protonix] 40 mg Tablet,Delayed Release (Dr/Ec) 40 mg PO QDAY diphenhydramine HCl [Benadryl Allergy] 25 mg Tablet 25 mg PO Q12HR PRN (Reason: Itching) ipratropium-albuterol 18-103 mcg/actuation Aerosol 2 spray INHALATION Q6HR PRN (Reason: Shortness Of Breath Or Wheezing) melatonin 5 mg Tablet 5 mg PO HS PRN (Reason: Sleep) magnesium oxide 400 mg magnesium Tablet 400 mg PO QDAY Referrals: Prasanna Morrell MD [Primary Care Provider] - Patient/Caregiver Discharge Instructions Print Language: Maori Stand Alone Forms: Debra Award Info., Patient Portal Info Letter Quality Discharge Quality Measures VTE prophylaxis Attestestation Attestation I have discussed and was present for the essential components of the discharge history, physical examination, diagnosis, and discharge treatment plan with the resident. I agree with the patient's discharge care as documented by the resident and amended herein by me. Calvin Tierney DO. Patient to be transferred to for nephrostomy tube exchange, will be transf erred back to [facility] after procedure is complete pending no complications. Although this document has been carefully reviewed, there may still be some phonetic and other typographical errors. These errors are purely grammatical due to imperfections in the software program and should not be construed in any way to compromise the substance of the patient's medical care during this visit.
[2024-11-03] VITALS (12 sets, daily range): BP systolic 103–124; BP diastolic 51–94; PULSE 64–93; RESP 16–18; TEMP 36.1–36.9; O2SAT 93–96; BMI 37.1
[2024-11-03] MEDS: MIDODRINE 5 MG TABLET 10 MG PO ×3 (05:31→21:17)
[2024-11-03] MEDS: HEPARIN SOD INJ 5000 UNIT/ML VIAL SC (05:31)
[2024-11-03 05:54] LABS: Basophils % (Auto) 1 % (0-2.5); Eosinophils # (Auto) 0.3 Thou/mm3 (0.0-0.5); Eosinophils % (Auto) 6 % (0-10); Immature Granulocytes % (Auto) 3 % (0-0); Immature Granulocytes Auto 0.17 Thou/mm3 (0.00-0.00); Lymphocytes % (Auto) 19 % (10-50); Mean Corpuscular HGB Conc 32.3 g/dl (31.0-37.0); Mean Corpuscular Hemoglobin 28.4 pg (25.0-35.0); Mean Corpuscular Volume 88 fL (80-100); Monocytes # (Auto) 0.5 Thou/mm3 (0.0-0.8); Monocytes % (Auto) 10 % (0-12); Neutrophils # (Auto) 3.1 Thou/mm3 (1.8-7.7); Neutrophils % (Auto) 61 % (37-80); Nucleated Red Blood Cell % 0 /100 WBC (0); Platelet Count 312 Thou/mm3 (140-440); RDW Standard Deviation 51.7 fL (36.4-46.3); Red Blood Count 2.18 Miln/mm3 (4.00-5.20); White Blood Count 5.1 Thou/mm3 (3.6-11.0)
[2024-11-03 06:00] LABS: Hemoglobin 6.2 g/dL (12.0-16.0)
[2024-11-03 06:01] LABS: Hematocrit 19.2 % (36.0-46.0)
[2024-11-03 06:25] LABS: Alanine Aminotransferase 10 U/L (10-49); Albumin, Serum 3.1 gm/dL (3.4-4.8); Albumin/Globulin Ratio 1.3 (1.2-2.2); Alkaline Phosphatase 126 U/L (46-116); Anion Gap 11 (7-16); Aspartate Amino Transferase 18 U/L (0-34); BUN/Creatinine Ratio 9 Ratio (12-20); Bilirubin,Total < 0.2 mg/dL (0.3-1.2); Blood Urea Nitrogen 16 mg/dL (9-23); Calcium 8.8 mg/dL (8.3-10.6); Calcium (Corrected) 9.5 mg/dL (8.5-10.1); Carbon Dioxide 24.4 mMol/L (20.0-31.0); Chloride 105 mMol/L (98-107); Creatinine (Component) 1.7 mg/dL (0.6-1.3); Estimated Creatinine Clearance 34.3 mL/min (>60); Globulin 2.3 gm/dL (2.3-3.5); Glucose 73 mg/dL (74-106); Magnesium 1.4 mg/dL (1.6-2.6); Osmolality,Calculated 279 (275-295); Phosphorous 3.6 mg/dL (2.4-5.1); Sodium 140 mMol/L (136-145); Total Protein 5.4 gm/dL (5.7-8.2); eGFR 32 See Note
[2024-11-03] MEDS: PANTOPRAZOLE INJ 40 MG VIAL IV (08:24)
[2024-11-03] MEDS: ONDANSETRON INJ 2 MG/ML INJ 2 ML 4 MG IV (08:24)
[2024-11-03] MEDS: SMX IV ×2 (08:57→21:16)
[2024-11-03] MEDS: TMP IV ×2 (08:57→21:16)
[2024-11-03] MEDS: DEXTROSE 5% IV ×2 (08:57→21:16)
[2024-11-03] MEDS: WATER IV ×2 (08:57→21:16)
[2024-11-03 09:09] LABS: Hematocrit 24.1 % (36.0-46.0)
[2024-11-03 09:45] LABS: Hemoglobin 7.8 g/dL (12.0-16.0)
[2024-11-03] MEDS: MAGNESIUM OXIDE 400 MG TABLET PO (11:07)
[2024-11-03] MEDS: oxyCODONE/APAP 5/325 TABLET 1 TAB PO (11:08)
--- NOTE | 2024-11-03 11:50 | PC.NURSE ---
Dr. Tierney said to hold 1 unit of PRBC till after they check H/H in the morning
--- NOTE | 2024-11-03 13:43 | ESPR_ITS ---
<Statement entered by Jaky Deng MD - 11/03/24 15:26> Patient seen and examined at bedside. Yesterday patient was transferred to [facility], bilateral nephrostomy tube was replaced, overnight patient was afebrile, WBC within normal limits. Repeat H&H was normal. Patient was complaining of pain, pain management was placed. We will try to obtain records from [facility]. Continue back treatment IV, anticipate discharge in the next 24 hours. I personally saw and examined the patient and discussed the assessment and plan with the entire medicine team, including my attending Dr. Tierney, Jaky Deng M.D. PGY-2 Disclaimer: Despite multiple revisions, due to the dictation software being used, the document bellow may not be free of grammatical errors including phonetic/typographic errors. However, this does not deter from our commitment to providing health care in the patient's best interest in mind. Documentation for date of: 11/03/24 Subjective Subjective Interval history: Overnight event, night team reported Hgb of 6.2 and Hct of 19.2 with morning labs. 1 Unit of RBC ordered, but currently holding. Repeat Hgb 7.8 and Hct 24.1. Patient returned form [facility] after nephrostomy tube exchange. Patient complaining of pain secondary to nephrostomy tube exchange 05/12. Patient continues to urinate well, via drains from nephrostomy tubes. No hematuria noted from nephrostomy tubes. Tomlinson catheter continues to be in place. Director Of Group Counseling Program Dr. Pepe. Exam Vital Signs Temp Pulse Resp BP Pulse Ox O2 Del Method O2 Flow Rate 97.3 F 78 18 103/53 L 96 Room Air 3 11/03/24 11:46 11/03/24 12:00 11/03/24 11:46 11/03/24 11:46 11/03/24 11:46 11/03/24 11:46 11/03/24 07:57 Narrative Exam General Appearance: Alert & Oriented X3, well-nourished female who is lying in bed in no acute distress HEENT: Skull symmetrical and atraumatic. Conjunctivae pin and moist. Pupils equal, round, reactive to light and accommodation (PERRL). External ear without lesion or discharge. Straight, nares patient, mucosa pink, no discharge. No thyroid nodule appreciated. No cervical lymphadenopathy. Cardio: Normal Rate and Rhythm with S1 and S2 heart sounds. No murmurs or extra heart sounds auscultated. No bruits on carotid auscultation. No peripheral edema or cyanosis. Lungs: Symmetric with good expansion. Chest and back non-tender. Breath sounds vesicular without crackles, wheezing or rhonchi Abdomen: Non-tender, Non-distended, Normal Reactive Bowel Sounds, mild tenderness at bilateral flanks Neuro: Alert, cooperative, oriented to person, place, and time. Speech clear. CN grossly intact. Upper motor strength 5/5 and Lower motor strength 5/5. Sensation intact. Objective Labs 11/03/24 08:50 11/03/24 04:30 Labs: Laboratory Results - last 24 hr 11/02/24 11/03/24 11/03/24 04:58 04:30 08:50 WBC 5.1 RBC 2.18 L Hgb 6.2 L* D 7.8 L D Hct 19.2 L* 24.1 L MCV 88 MCH 28.4 MCHC 32.3 RDW Std Deviation 51.7 H Plt Count 312 D Neut % (Auto) 61 Lymph % (Auto) 19 Parker % (Auto) 10 Eos % (Auto) 6 Baso % (Auto) 1 Neut # (Auto) 3.1 Lymph # (Auto) 1.0 Parker # (Auto) 0.5 Eos # (Auto) 0.3 Baso # (Auto) 0.0 Immature Gran # (Auto) 0.17 H Absolute Nucleated RBC 0.00 Immature Gran % 3 H Nucleated RBC % 0 Sodium 140 Potassium 4.0 Chloride 105 Carbon Dioxide 24.4 Anion Gap 11 BUN 16 Creatinine 1.7 H Estim Creat Clear Calc 34.3 L eGFR 32 L BUN/Creatinine Ratio 9 L Glucose 73 L Calculated Osmolality 279 Calcium 8.8 Corrected Calcium 9.5 Phosphorus 3.6 Magnesium 1.4 L Total Bilirubin < 0.2 L AST 18 ALT 10 Alkaline Phosphatase 126 H Total Protein 5.4 L Albumin 3.1 L Globulin 2.3 Albumin/Globulin Ratio 1.3 Blood Type O Positive Antibody Screen POSITIVE Antibody Identification Anti-E Crossmatch See Detail Blood Bank Wristband ID Yes Quality Measures Quality Measures VTE prophylaxis Advance care planning discussed with:: patient Assessment & Plan Assessment Current Active Medications: Generic Name Dose Route Start Last Admin Trade Name Freq PRN Reason Stop Dose Admin Acetaminophen 650 mg 10/27/24 12:57 Acetaminophen 325 Mg Tablet PO 11/26/24 12:56 Q4HR PRN PAIN SCALE 1-3 (mild Acetaminophen 650 mg 10/27/24 12:57 Acetaminophen Supp 650 Mg Supp IA 11/26/24 12:56 Q4HR PRN PAIN SCALE 1-3 (mild Al Hydrox/Mg Hydrox/Simethicone 30 ml 10/27/24 12:57 Mg Hyd/Al Hyd/Bety (Maalox Reg) Susp 30 Ml Udc PO 11/26/24 12:56 Q4HR PRN Heartburn or Upset Stomach Heparin Sodium (Porcine) 5,000 unit 10/30/24 16:15 11/03/24 05:31 Heparin Sod Inj 5000 Unit/Ml Vial SC 11/13/24 16:14 5,000 unit Q8HR JESSICA Administration Hydromorphone HCl 0.25 mg 11/03/24 11:25 Hydromorphone Inj 2 Mg/Ml Vial IVP 11/08/24 11:24 Q4HR PRN PAIN 4-10 Trimethoprim/Sulfamethoxazole 105 mls @ 105 mls/hr 10/30/24 17:30 11/03/24 08:57 5 ml/ Dextrose IV 11/06/24 17:29 105 mls/hr BID JESSICA Administration Magnesium Hydroxide 30 ml 10/27/24 12:57 Milk Of Magnesia Susp 30 Ml Udc PO 11/26/24 12:56 QDAY PRN CONSTIPATION Midodrine 10 mg 10/29/24 07:00 11/03/24 05:31 Midodrine 5 Mg Tablet PO 11/28/24 06:59 10 mg TID JESSICA Administration Nitroglycerin 0.4 mg 10/27/24 12:57 Nitroglycerin 0.4 Mg Subl Btl #25 SL Q5MIN PRN CHEST PAIN Ondansetron HCl 4 mg 10/28/24 10:36 11/03/24 08:24 Ondansetron Inj 2 Mg/Ml Inj 2 Ml IV 11/27/24 10:35 4 mg Q6HR PRN Administration NAUSEA OR VOMITING Protocol Pantoprazole Sodium 40 mg 10/27/24 15:45 11/03/24 08:24 Pantoprazole Inj 40 Mg Vial IV 11/26/24 15:44 40 mg QDAY JESSICA Administration Plan Patient is a 69-year-old female with a past medical history of endometrial cancer on chemo and radiation with last round in August 2024 pending follow-up with oncology in 3 months to determine course, history of recurrent blood transfusion due to chronic anemia, history of COPD,, diabetes mellitus type 2, bilateral obstructive nephrolithiasis status post bilateral nephro ostomy tube who was admitted for Septic Shock secondary source likely bilateral nephrostomy tubes. Patient was downgraded on 11/01/2024 and pending transfer. #Obstructive Nephrolithias s/p nephrostomy tube #Urinary Tract Infection #Stenotrophomonas Maltophlia #Klebsiella Pneumoniae Patient has a history of nephrolithisas with nephrostomy tubes in place, likley source on septic shock inefection. Blood cultures Negative Urine Cultures: Stenotrophomonas Maltophilia & Klebsiella pneumoniae Plan -Tylenol 650 mg Q4HR PRN -Pain Management: Dilaudid -Bactrim 160-800 mg 10/30/2024 (sensivite to both) #WARREN Given septic shock, likely pre-renal with a basline Cr of 1.0-1.3 and on admission Cr level of 2.3 w/ BUN/Cr level of 12 but given low BUN/Cr ratio of less than 15, intrinsic renal failure can not be ruled out. Intrinsic renal injury can not be ruled out given RBC 94 and nephrostomy tube BUN 19, Cr 1.8, BUN/Cr 11 (11/01/2024) UA RBC + Plan -Consider gentle hydration AM -Avoid nephrotoxins -Renally dose medicaiton -Consider Renal Ultrasound #Hypotensive Given septic shock, patient has been hypotensive since admission vs pain management medication. Plan -Continue Midodrine 10 mg PO TID -consider reducing Midodrine to 10 mg PO BID, tomorrow. #Normocytic Anemia #Acute blood loss Vs anemia of chronic disease Patient stated she has a past medical history of chornic anemia, during downgrade Hgb 8.1, Hct 25.4, and MCV 89, which is likely anemia of chronic disease secondary to diabetes & history of chemo/radiation. In additon patient went for prodcedure yesterday which could have caused blood loss vs history of chemotherpay vs possible hematuria noted in tomlinson. Plan -No acute intervention -Holding 1 unit of RBC (did not transfuse) -Transfuse if Hgb <7 -Type and screen with morning labs -Holding Heparin-->compression Device -consider oncology consult given history of endometrial cancer #COPD Per chart review past medical history of COPD Plan -Continue home medication of Albuterol inhaler as needed #Diabetes Mellitus Type II, non-insulin dependent A1c on admission 4.8 whos home medicaiton include Aldencristóbal. Plan: -Follow fasting Blood glucose -consider Lispro sliding scale #History of Endometrial Cancer -No acute intervention #Hyponatremia-resolved #Hyperkalemia-resolved #MIld Transaminitis #Septic Shock Resolved, secondary to nephrostomy tubes Health Maintenance: Disp: Pt is currently admitted to floors for further management of pain. FEN: Diet Regular DVT: on subQ heparin [id number] Tomlinson Catheter & drains from nephrostomy tubes Code: Full code - The patient's plan was discussed with attending Dr. Tierney and senior residents Dr. Ish Macdonald MD PGY1 Internal Medicine Attending Provider Attestation/Addendum I have discussed and was present for the essential components of the history, physical examination, diagnosis, and treatment plan with the resident. I agree with the patient's care as documented by the resident and amended herein by me. Calvin Tierney, DO. Patient seen and evaluated this AM. Vital signs stable, patient afebrile, initial hemoglobin this morning was below 7 however repeat was 7.8 hence we will hold transfusion for now. Will continue IV Bactrim and focus on pain control today. Will also transfuse for hemoglobin less than 7. Will continue to monitor closely. Although this document has been carefully reviewed, there may still be some phonetic and other typographical errors. These errors are purely grammatical due to imperfections in the software program and should not be construed in any way to compromise the substance of the patient's medical care during this visit.
[2024-11-03] MEDS: HYDROmorphone INJ 2 MG/ML VIAL 0.25 MG IVP ×2 (14:19→16:13)
[2024-11-03 16:45] LABS: Path Review Blood Smear Sent to Pathologist
[2024-11-03] MEDS: HYDROmorphone INJ 2 MG/ML VIAL 0.5 MG IVP (21:16)
[2024-11-04] VITALS (11 sets, daily range): BP systolic 97–118; BP diastolic 50–60; PULSE 64–85; RESP 15–18; TEMP 36.1–37; O2SAT 94–97
[2024-11-04] MEDS: HYDROmorphone INJ 2 MG/ML VIAL 0.5 MG IVP ×5 (04:32→23:41)
[2024-11-04] MEDS: ONDANSETRON INJ 2 MG/ML INJ 2 ML 4 MG IV ×2 (04:33→23:40)
[2024-11-04] MEDS: MIDODRINE 5 MG TABLET 10 MG PO ×3 (05:32→21:11)
[2024-11-04 05:35] LABS: Basophils % (Auto) 1 % (0-2.5); Eosinophils # (Auto) 0.3 Thou/mm3 (0.0-0.5); Eosinophils % (Auto) 6 % (0-10); Hematocrit 24.2 % (36.0-46.0); Immature Granulocytes % (Auto) 4 % (0-0); Immature Granulocytes Auto 0.24 Thou/mm3 (0.00-0.00); Lymphocytes # (Auto) 1.1 Thou/mm3 (1.0-4.8); Lymphocytes % (Auto) 19 % (10-50); Mean Corpuscular HGB Conc 32.2 g/dl (31.0-37.0); Mean Corpuscular Hemoglobin 28.5 pg (25.0-35.0); Mean Corpuscular Volume 88 fL (80-100); Monocytes # (Auto) 0.5 Thou/mm3 (0.0-0.8); Monocytes % (Auto) 9 % (0-12); Neutrophils # (Auto) 3.5 Thou/mm3 (1.8-7.7); Neutrophils % (Auto) 62 % (37-80); Nucleated Red Blood Cell % 0 /100 WBC (0); Platelet Count 305 Thou/mm3 (140-440); RDW Standard Deviation 52.2 fL (36.4-46.3); Red Blood Count 2.74 Miln/mm3 (4.00-5.20); White Blood Count 5.8 Thou/mm3 (3.6-11.0)
[2024-11-04 05:39] LABS: Hemoglobin 7.8 g/dL (12.0-16.0)
[2024-11-04 06:41] LABS: Alanine Aminotransferase 8 U/L (10-49); Albumin, Serum 3.1 gm/dL (3.4-4.8); Albumin/Globulin Ratio 1.4 (1.2-2.2); Alkaline Phosphatase 137 U/L (46-116); Anion Gap 8 (7-16); Aspartate Amino Transferase 15 U/L (0-34); BUN/Creatinine Ratio 9 Ratio (12-20); Bilirubin,Total < 0.2 mg/dL (0.3-1.2); Blood Urea Nitrogen 16 mg/dL (9-23); Calcium 8.3 mg/dL (8.3-10.6); Carbon Dioxide 25.5 mMol/L (20.0-31.0); Chloride 105 mMol/L (98-107); Creatinine (Component) 1.8 mg/dL (0.6-1.3); Estimated Creatinine Clearance 31.7 mL/min (>60); Globulin 2.2 gm/dL (2.3-3.5); Glucose 74 mg/dL (74-106); Magnesium 1.4 mg/dL (1.6-2.6); Osmolality,Calculated 275 (275-295); Phosphorous 3.5 mg/dL (2.4-5.1); Sodium 138 mMol/L (136-145); Total Protein 5.3 gm/dL (5.7-8.2); eGFR 30 See Note
[2024-11-04] MEDS: PANTOPRAZOLE INJ 40 MG VIAL IV (08:02)
[2024-11-04] MEDS: DEXTROSE 5% IV (09:07)
[2024-11-04] MEDS: WATER IV (09:07)
[2024-11-04] MEDS: TMP IV (09:07)
[2024-11-04] MEDS: SMX IV (09:07)
[2024-11-04] MEDS: Magnesium Sulfate 2 GM Ivpb 2 GM/50 ML BAG IV (10:17)
--- NOTE | 2024-11-04 10:40 | CHAP ---
Patient was visited by the Spiritual Care Volunteer who prayed silently for them. (Volunteer was in the hospital from 09:15-10:40).
--- NOTE | 2024-11-04 13:21 | PC.SS ---
Follow up note: SS spoke to Tomasa @ [facility] to update that patient may d/c over weekend. They are requesting updated clinicals be sent through [employer]. Patient was transferred to [facility] and has nephrostomy tubes in place.
--- NOTE | 2024-11-04 14:25 | ESPR_ITS ---
<Statement entered by Jaky Deng MD - 11/04/24 14:51> Patient seen and examined still complaining of moderate pain, patient still on IV Dilaudid, on discharge will restart home Percocet. No overnight acute events. CBC stable, hemoglobin 7.8, CMP is stable, CMP revealed creatinine of 1.8. Continue midodrine, switch back to IV to p.o., outpatient urology was contacted, patient will have a outpatient follow-up with urology. For now continue p.o. antibiotics, monitor pain and anticipate discharge in next 24 hours. Patient will go back to [facility]. I personally saw and examined the patient and discussed the assessment and plan with the entire medicine team, including my attending Dr. Tierney, Jaky Deng M.D. PGY-2 Disclaimer: Despite multiple revisions, due to the dictation software being used, the document bellow may not be free of grammatical errors including phonetic/typographic errors. However, this does not deter from our commitment to providing health care in the patient's best interest in mind. Documentation for date of: 11/04/24 Subjective Subjective Interval history: No overnight events. Patient continues to produce urine via nephrostomy tubes. Patinet denied any pyrexia or chills overnight. Patient continues to require pain management with Dilaudid as pain is 8/10 secondary to nephrostomy tube replacement. [facility] be [facility] to [facility]. Exam Vital Signs Temp Pulse Resp BP Pulse Ox O2 Del Method O2 Flow Rate 98.6 F 64 16 98/56 L 97 Room Air 3 11/04/24 11:50 11/04/24 12:00 11/04/24 11:50 11/04/24 11:50 11/04/24 11:50 11/04/24 07:54 11/03/24 07:57 Narrative Exam General Appearance: Alert & Oriented X3, well-nourished female who is lying in bed in discomfort HEENT: Skull symmetrical and atraumatic. Conjunctivae pin and moist. Pupils equal, round, reactive to light and accommodation (PERRL). External ear without lesion or discharge. Straight, nares patient, mucosa pink, no discharge. No thyroid nodule appreciated. No cervical lymphadenopathy. Cardio: Normal Rate and Rhythm with S1 and S2 heart sounds. No murmurs or extra heart sounds auscultated. No bruits on carotid auscultation. No peripheral edema or cyanosis. Lungs: Symmetric with good expansion. Chest and back non-tender. Breath sounds vesicular without crackles, wheezing or rhonchi Abdomen: Non-tender, Non-distended, Normal Reactive Bowel Sounds Neuro: Alert, cooperative, oriented to person, place, and time. Speech clear. CN grossly intact. Upper motor strength 5/5 and Lower motor strength 4/5. Sensation intact. Objective Labs 11/04/24 04:22 11/04/24 04:22 Labs: Laboratory Results - last 24 hr 11/03/24 11/04/24 04:30 04:22 WBC 5.8 RBC 2.74 L Hgb 7.8 L Hct 24.2 L MCV 88 MCH 28.5 MCHC 32.2 RDW Std Deviation 52.2 H Plt Count 305 Neut % (Auto) 62 Lymph % (Auto) 19 Bowie % (Auto) 9 Eos % (Auto) 6 Baso % (Auto) 1 Neut # (Auto) 3.5 Lymph # (Auto) 1.1 Bowie # (Auto) 0.5 Eos # (Auto) 0.3 Baso # (Auto) 0.0 Immature Gran # (Auto) 0.24 H Absolute Nucleated RBC 0.00 Immature Gran % 4 H Nucleated RBC % 0 Smear Path Review Sent to Pathologist Sodium 138 Potassium 4.0 Chloride 105 Carbon Dioxide 25.5 Anion Gap 8 BUN 16 Creatinine 1.8 H Estim Creat Clear Calc 31.7 L eGFR 30 L BUN/Creatinine Ratio 9 L Glucose 74 Calculated Osmolality 275 Calcium 8.3 Corrected Calcium 9.0 Phosphorus 3.5 Magnesium 1.4 L Total Bilirubin < 0.2 L AST 15 ALT 8 L Alkaline Phosphatase 137 H Total Protein 5.3 L Albumin 3.1 L Globulin 2.2 L Albumin/Globulin Ratio 1.4 Quality Measures Quality Measures VTE prophylaxis Advance care planning discussed with:: patient Assessment & Plan Assessment Current Active Medications: Generic Name Dose Route Start Last Admin Trade Name Freq PRN Reason Stop Dose Admin Acetaminophen 650 mg 10/27/24 12:57 Acetaminophen 325 Mg Tablet PO 11/26/24 12:56 Q4HR PRN PAIN SCALE 1-3 (mild Acetaminophen 650 mg 10/27/24 12:57 Acetaminophen Supp 650 Mg Supp MT 11/26/24 12:56 Q4HR PRN PAIN SCALE 1-3 (mild Al Hydrox/Mg Hydrox/Simethicone 30 ml 10/27/24 12:57 Mg Hyd/Al Hyd/Bety (Maalox Reg) Susp 30 Ml Udc PO 11/26/24 12:56 Q4HR PRN Heartburn or Upset Stomach Hydromorphone HCl 0.5 mg 11/03/24 18:52 11/04/24 09:11 Hydromorphone Inj 2 Mg/Ml Vial IVP 11/08/24 11:24 0.5 mg Q4HR PRN Administration PAIN 4-10 Magnesium Hydroxide 30 ml 10/27/24 12:57 Milk Of Magnesia Susp 30 Ml Udc PO 11/26/24 12:56 QDAY PRN CONSTIPATION Midodrine 10 mg 10/29/24 07:00 11/04/24 05:32 Midodrine 5 Mg Tablet PO 11/28/24 06:59 10 mg TID JESSICA Administration Nitroglycerin 0.4 mg 10/27/24 12:57 Nitroglycerin 0.4 Mg Subl Btl #25 SL Q5MIN PRN CHEST PAIN Ondansetron HCl 4 mg 10/28/24 10:36 11/04/24 04:33 Ondansetron Inj 2 Mg/Ml Inj 2 Ml IV 11/27/24 10:35 4 mg Q6HR PRN Administration NAUSEA OR VOMITING Protocol Pantoprazole Sodium 40 mg 10/27/24 15:45 11/04/24 08:02 Pantoprazole Inj 40 Mg Vial IV 11/26/24 15:44 40 mg QDAY JESSICA Administration Trimethoprim/Sulfamethoxazole 1 tab 11/04/24 21:00 Trimethoprim/Sulfa 160/800 Ds Tablet PO 11/11/24 20:59 BID JESSICA Plan Patient is a 69-year-old female with a past medical history of endometrial cancer on chemo and radiation with last round in August 2024 pending follow-up with oncology in 3 months to determine course, history of recurrent blood transfusion due to chronic anemia, history of COPD,, diabetes mellitus type 2, bilateral obstructive nephrolithiasis status post bilateral nephro ostomy tube who was admitted for Septic Shock secondary source likely bilateral nephrostomy tubes. Patient was downgraded on 11/01/2024 and pending transfer. #Obstructive Nephrolithias s/p nephrostomy tube #Urinary Tract Infection #Stenotrophomonas Maltophlia #Klebsiella Pneumoniae Patient has a history of nephrolithisas with nephrostomy tubes in place, likley source on septic shock inefection. Blood cultures Negative Urine Cultures: Stenotrophomonas Maltophilia & Klebsiella pneumoniae Plan -Tylenol 650 mg Q4HR PRN -Pain Management: Dilaudid 0.5 mg Q4HR -Bactrim 160-800 mg 10/30/2024 (sensivite to both) #WARREN Given septic shock, likely pre-renal with a basline Cr of 1.0-1.3 and on admission Cr level of 2.3 w/ BUN/Cr level of 12 but given low BUN/Cr ratio of less than 15, intrinsic renal failure can not be ruled out. Intrinsic renal injury can not be ruled out given RBC 94 and nephrostomy tube BUN 19, Cr 1.8, BUN/Cr 11 (11/01/2024) UA RBC + Plan -Consider gentle hydration AM -Avoid nephrotoxins -Renally dose medicaiton -Consider Renal Ultrasound #Hypotensive Given septic shock, patient has been hypotensive since admission vs pain management medication. Plan -Continue Midodrine 10 mg PO TID -consider reducing Midodrine to 10 mg PO BID, tomorrow. #Normocytic Anemia #Acute blood loss Vs anemia of chronic disease Patient stated she has a past medical history of chornic anemia, during downgrade Hgb 8.1, Hct 25.4, and MCV 89, which is likely anemia of chronic disease secondary to diabetes & history of chemo/radiation. In additon patient went for prodcedure yesterday which could have caused blood loss vs history of chemotherpay vs possible hematuria noted in tomlinson. Plan -No acute intervention -Holding 1 unit of RBC (did not transfuse) -Transfuse if Hgb <7 -Type and screen with morning labs -Holding Heparin-->compression Device -consider oncology consult given history of endometrial cancer #COPD Per chart review past medical history of COPD Plan -Continue home medication of Albuterol inhaler as needed #Diabetes Mellitus Type II, non-insulin dependent A1c on admission 4.8 whos home medicaiton include Januvia. Plan: -Follow fasting Blood glucose -consider Lispro sliding scale #History of Endometrial Cancer -No acute intervention #Hyponatremia-resolved #Hyperkalemia-resolved #MIld Transaminitis #Septic Shock Resolved, secondary to nephrostomy tubes Health Maintenance: Disp: Pt is currently admitted to floors for further management of pain. FEN: Diet Regular DVT: on subQ heparin [id number] Tomlinson Tomlinson Catheter & drains from nephrostomy tubes Code: Full code - The patient's plan was discussed with attending Dr. Tierney and senior residents Dr. Ish Macdonald MD PGY1 Internal Medicine Attending Provider Attestation/Addendum I have discussed and was present for the essential components of the history, physical examination, diagnosis, and treatment plan with the resident. I agree with the patient's care as documented by the resident and amended herein by me. Calvin Tierney, DO. Patient seen and evaluated this AM. Vital signs stable, patient afebrile overnight. Patient was receiving 0.5 mg Dilaudid regularly which she states worked however we will try to wean as soon as possible. Hemoglobin stable at 7.8 today. Creatinine slight uptrend 1.8. Will replete electrolytes, continue the patient on IV Bactrim however likely will transition to p.o. later today or tomorrow. Continue pain control, we were able to make an appointment with her urologist, Dr. Madsen later in the month for follow-up. Will continue to monitor closely while she is here. Although this document has been carefully reviewed, there may still be some phonetic and other typographical errors. These errors are purely grammatical due to imperfections in the software program and should not be construed in any way to compromise the substance of the patient's medical care during this visit.
[2024-11-04] MEDS: Milk Of Magnesia Susp 30 ML UDC PO (14:34)
[2024-11-04] MEDS: TRIMETHOPRIM/SULFA 160/800 DS TABLET 1 TAB PO (21:11)
[2024-11-05] VITALS (11 sets, daily range): BP systolic 99–121; BP diastolic 47–65; PULSE 64–87; RESP 13–19; TEMP 36.1–36.5; O2SAT 94–96; BMI 35.5
[2024-11-05] MEDS: HYDROmorphone INJ 2 MG/ML VIAL 0.5 MG IVP ×2 (03:49→08:55)
[2024-11-05] MEDS: MIDODRINE 5 MG TABLET 10 MG PO ×3 (05:47→21:32)
[2024-11-05 06:06] LABS: Albumin, Serum 3.3 gm/dL (3.4-4.8); Albumin/Globulin Ratio 1.4 (1.2-2.2); Alkaline Phosphatase 152 U/L (46-116); Anion Gap 8 (7-16); Aspartate Amino Transferase 18 U/L (0-34); BUN/Creatinine Ratio 9 Ratio (12-20); Bilirubin,Total < 0.2 mg/dL (0.3-1.2); Blood Urea Nitrogen 18 mg/dL (9-23); Calcium 8.4 mg/dL (8.3-10.6); Carbon Dioxide 26.1 mMol/L (20.0-31.0); Chloride 102 mMol/L (98-107); Creatinine (Component) 1.9 mg/dL (0.6-1.3); Globulin 2.3 gm/dL (2.3-3.5); Glucose 95 mg/dL (74-106); Magnesium 2.2 mg/dL (1.6-2.6); Osmolality,Calculated 273 (275-295); Phosphorous 3.7 mg/dL (2.4-5.1); Potassium 4.2 mMol/L (3.4-5.1); Sodium 136 mMol/L (136-145); Total Protein 5.6 gm/dL (5.7-8.2); eGFR 28 See Note
[2024-11-05 06:11] LABS: Alanine Aminotransferase 9 U/L (10-49)
[2024-11-05 07:50] LABS: Basophils % (Auto) 0 % (0-2.5); Eosinophils # (Auto) 0.4 Thou/mm3 (0.0-0.5); Eosinophils % (Auto) 5 % (0-10); Immature Granulocytes % (Auto) 3 % (0-0); Immature Granulocytes Auto 0.24 Thou/mm3 (0.00-0.00); Lymphocytes # (Auto) 1.2 Thou/mm3 (1.0-4.8); Lymphocytes % (Auto) 14 % (10-50); Mean Corpuscular Hemoglobin 28.4 pg (25.0-35.0); Mean Corpuscular Volume 89 fL (80-100); Monocytes # (Auto) 0.7 Thou/mm3 (0.0-0.8); Monocytes % (Auto) 7 % (0-12); Neutrophils # (Auto) 6.3 Thou/mm3 (1.8-7.7); Neutrophils % (Auto) 71 % (37-80); Nucleated Red Blood Cell % 0 /100 WBC (0); Platelet Count 346 Thou/mm3 (140-440); RDW Standard Deviation 53.1 fL (36.4-46.3); Red Blood Count 2.04 Miln/mm3 (4.00-5.20); White Blood Count 8.9 Thou/mm3 (3.6-11.0)
[2024-11-05 07:56] LABS: Hemoglobin 5.8 g/dL (12.0-16.0)
[2024-11-05 07:57] LABS: Hematocrit 18.1 % (36.0-46.0)
[2024-11-05] MEDS: PANTOPRAZOLE INJ 40 MG VIAL IV (08:55)
[2024-11-05] MEDS: ONDANSETRON INJ 2 MG/ML INJ 2 ML 4 MG IV ×2 (08:56→18:47)
[2024-11-05] MEDS: TRIMETHOPRIM/SULFA 160/800 DS TABLET 1 TAB PO (08:56)
[2024-11-05] MEDS: SODIUM CHLORIDE 0.9% 500 ML 500 ML 999 ML IV (09:18)
[2024-11-05 09:49] LABS: Hematocrit 24.7 % (36.0-46.0); Hemoglobin 7.8 g/dL (12.0-16.0)
--- NOTE | 2024-11-05 10:54 | PC.SS ---
Patient is a possible d/c back to [facility] today. Repeat labs. If everything looks good, may d/c today. Nursing aware
[2024-11-05] MEDS: HEPARIN SOD INJ 5000 UNIT/ML VIAL SC ×2 (11:55→20:47)
--- NOTE | 2024-11-05 12:15 | ESPR_ITS ---
Documentation for date of: 11/05/24 Subjective Subjective Interval history: Overnight, patient recieved hydromorphone 0.5 X2-->reduced to 0.25 mg Q4HR. Patient continued to state pain is 8/10, encouraged ambulation and PT. Patient had worsening kidney function with bactrim-->changed to levofloxacin every other day. 1 bolus x 1 Exam Vital Signs Temp Pulse Resp BP Pulse Ox O2 Del Method O2 Flow Rate 97.2 F 87 18 110/57 L 96 Room Air 3 11/05/24 07:26 11/05/24 12:00 11/05/24 07:26 11/05/24 07:26 11/05/24 07:26 11/05/24 07:26 11/03/24 07:57 Narrative Exam General Appearance: Alert & Oriented X3, well-nourished female who is lying in bed in discomfort HEENT: Skull symmetrical and atraumatic. Conjunctivae pin and moist. Pupils equal, round, reactive to light and accommodation (PERRL). External ear without lesion or discharge. Straight, nares patient, mucosa pink, no discharge. No thyroid nodule appreciated. No cervical lymphadenopathy. Cardio: Normal Rate and Rhythm with S1 and S2 heart sounds. No murmurs or extra heart sounds auscultated. No bruits on carotid auscultation. No peripheral edema or cyanosis. Lungs: Symmetric with good expansion. Chest and back non-tender. Breath sounds vesicular without crackles, wheezing or rhonchi Abdomen: Non-tender, Non-distended, Normal Reactive Bowel Sounds Neuro: Alert, cooperative, oriented to person, place, and time. Speech clear. CN grossly intact. Upper motor strength 5/5 and Lower motor strength 4/5. Sensation intact. Objective Labs 11/05/24 09:04 11/05/24 04:17 Labs: Laboratory Results - last 24 hr 11/02/24 11/05/24 11/05/24 04:58 04:17 07:20 WBC 8.9 D RBC 2.04 L Hgb 5.8 L* D Hct 18.1 L* MCV 89 MCH 28.4 MCHC 32.0 RDW Std Deviation 53.1 H Plt Count 346 D Neut % (Auto) 71 Lymph % (Auto) 14 Posey % (Auto) 7 Eos % (Auto) 5 Baso % (Auto) 0 Neut # (Auto) 6.3 Lymph # (Auto) 1.2 Posey # (Auto) 0.7 Eos # (Auto) 0.4 Baso # (Auto) 0.0 Immature Gran # (Auto) 0.24 H Absolute Nucleated RBC 0.00 Immature Gran % 3 H Nucleated RBC % 0 Sodium 136 Potassium 4.2 Chloride 102 Carbon Dioxide 26.1 Anion Gap 8 BUN 18 Creatinine 1.9 H Estim Creat Clear Calc 30.0 L eGFR 28 L BUN/Creatinine Ratio 9 L Glucose 95 Calculated Osmolality 273 L Calcium 8.4 Corrected Calcium 9.0 Phosphorus 3.7 Magnesium 2.2 Total Bilirubin < 0.2 L AST 18 ALT 9 L Alkaline Phosphatase 152 H Total Protein 5.6 L Albumin 3.3 L Globulin 2.3 Albumin/Globulin Ratio 1.4 Blood Type Antibody Screen Antibody Identification Crossmatch See Detail Blood Bank Wristband ID 11/05/24 09:04 WBC RBC Hgb 7.8 L D Hct 24.7 L MCV MCH MCHC RDW Std Deviation Plt Count Neut % (Auto) Lymph % (Auto) Posey % (Auto) Eos % (Auto) Baso % (Auto) Neut # (Auto) Lymph # (Auto) Posey # (Auto) Eos # (Auto) Baso # (Auto) Immature Gran # (Auto) Absolute Nucleated RBC Immature Gran % Nucleated RBC % Sodium Potassium Chloride Carbon Dioxide Anion Gap BUN Creatinine Estim Creat Clear Calc eGFR BUN/Creatinine Ratio Glucose Calculated Osmolality Calcium Corrected Calcium Phosphorus Magnesium Total Bilirubin AST ALT Alkaline Phosphatase Total Protein Albumin Globulin Albumin/Globulin Ratio Blood Type O Positive Antibody Screen POSITIVE Antibody Identification Anti-E Crossmatch Blood Bank Wristband ID Yes Quality Measures Quality Measures VTE prophylaxis Advance care planning discussed with:: patient Assessment & Plan Assessment Current Active Medications: Generic Name Dose Route Start Last Admin Trade Name Freq PRN Reason Stop Dose Admin Acetaminophen 650 mg 10/27/24 12:57 Acetaminophen 325 Mg Tablet PO 11/26/24 12:56 Q4HR PRN PAIN SCALE 1-3 (mild Acetaminophen 650 mg 10/27/24 12:57 Acetaminophen Supp 650 Mg Supp MI 11/26/24 12:56 Q4HR PRN PAIN SCALE 1-3 (mild Al Hydrox/Mg Hydrox/Simethicone 30 ml 10/27/24 12:57 Mg Hyd/Al Hyd/Bety (Maalox Reg) Susp 30 Ml Udc PO 11/26/24 12:56 Q4HR PRN Heartburn or Upset Stomach Heparin Sodium (Porcine) 5,000 unit 11/05/24 11:30 11/05/24 11:55 Heparin Sod Inj 5000 Unit/Ml Vial SC 11/19/24 11:29 5,000 unit Q12HR JESSICA Administration Hydromorphone HCl 0.25 mg 11/05/24 10:20 Hydromorphone Inj 2 Mg/Ml Vial IVP 11/08/24 11:24 Q4HR PRN PAIN 4-10 Levofloxacin 750 mg 11/05/24 21:00 Levofloxacin 250 Mg Tablet PO 11/12/24 20:59 Q48H JESSICA Magnesium Hydroxide 30 ml 10/27/24 12:57 11/04/24 14:34 Milk Of Magnesia Susp 30 Ml Udc PO 11/26/24 12:56 30 ml QDAY PRN Administration CONSTIPATION Midodrine 10 mg 10/29/24 07:00 11/05/24 05:47 Midodrine 5 Mg Tablet PO 11/28/24 06:59 10 mg TID JESSICA Administration Nitroglycerin 0.4 mg 10/27/24 12:57 Nitroglycerin 0.4 Mg Subl Btl #25 SL Q5MIN PRN CHEST PAIN Ondansetron HCl 4 mg 10/28/24 10:36 11/05/24 08:56 Ondansetron Inj 2 Mg/Ml Inj 2 Ml IV 11/27/24 10:35 4 mg Q6HR PRN Administration NAUSEA OR VOMITING Protocol Pantoprazole Sodium 40 mg 10/27/24 15:45 11/05/24 08:55 Pantoprazole Inj 40 Mg Vial IV 11/26/24 15:44 40 mg QDAY JESSICA Administration Plan Patient is a 69-year-old female with a past medical history of endometrial cancer on chemo and radiation with last round in August 2024 pending follow-up with oncology in 3 months to determine course, history of recurrent blood transfusion due to chronic anemia, history of COPD,, diabetes mellitus type 2, bilateral obstructive nephrolithiasis status post bilateral nephro ostomy tube who was admitted for Septic Shock secondary source likely bilateral nephrostomy tubes. Patient was downgraded on 11/01/2024 and pending transfer. #Obstructive Nephrolithias s/p nephrostomy tube #Urinary Tract Infection #Stenotrophomonas Maltophlia #Klebsiella Pneumoniae Patient has a history of nephrolithisas with [facility]rost[facility] tubes [facility] shock inefection. Blood cultures Negative Urine Cultures: Stenotrophomonas Maltophilia & Klebsiella pneumoniae Plan -Tylenol 650 mg Q4HR PRN -Pain Management: Dilaudid 0.5 mg Q4HR -Bactrim 160-800 mg 10/30/2024 (sensivite to both)-->changed to Levofloxacin 750 mg every other day given worsening kidney function. #WARREN Given septic shock, likely pre-renal with a basline Cr of 1.0-1.3 and on admission Cr level of 2.3 w/ BUN/Cr level of 12 but given low BUN/Cr ratio of less than 15, intrinsic renal failure can not be ruled out. Intrinsic renal injury can not be ruled out given RBC 94 and nephrostomy tube BUN 19, Cr 1.8, BUN/Cr 11 (11/01/2024) UA RBC + Plan -1 bolus given 11/05/2024 -Avoid nephrotoxins -Renally dose medicaiton -Consider Renal Ultrasound #Hypotensive Given septic shock, patient has been hypotensive since admission vs pain management medication. Plan -Continue Midodrine 10 mg PO TID -consider reducing Midodrine to 10 mg PO BID, tomorrow. #Normocytic Anemia #Acute blood loss Vs anemia of chronic disease Patient stated she has a past medical history of chornic anemia, during downgrade Hgb 8.1, Hct 25.4, and MCV 89, which is likely anemia of chronic disease secondary to diabetes & history of chemo/radiation. In additon patient went for prodcedure yesterday which could have caused blood loss vs history of chemotherpay vs possible hematuria noted in [place]inson. Plan -No acute intervention -Holding 1 unit of RBC (did not transfuse) -Transfuse if Hgb <7 -Type and screen with morning labs -Resume heparin -consider oncology consult given history of endometrial cancer #COPD Per chart review past medical history of COPD Plan -Continue home medication of Albuterol inhaler as needed #Diabetes Mellitus Type II, non-insulin dependent A1c on admission 4.8 whos home medicaiton include Januvia. Plan: -Follow fasting Blood glucose -consider Lispro sliding scale #History of Endometrial Cancer -No acute intervention #Hyponatremia-resolved #Hyperkalemia-resolved #MIld Transaminitis #Septic Shock Resolved, secondary to nephrostomy tubes Health Maintenance: Disp: Pt is currently admitted to floors for further management of pain and worsening WARREN FEN: Diet Regular DVT: on subQ heparin Q8hrs restarted/DC compression device Tomlinson Tomlinson Catheter & drains from nephrostomy tubes Code: Full code - The patient's plan was discussed with attending Dr. Kelsy Macdonald MD PGY1 Internal Medicine Attending Provider Attestation/Addendum I have discussed and was present for the essential components of the history, physical examination, diagnosis, and treatment plan with the resident. I agree with the patient's care as documented by the resident and amended herein by me. Calvin Tierney DO. Patient seen and evaluated this AM. No acute events overnight, vital signs stable, patient afebrile in the AM. Eyes nose 24 12/1924. CBC largely unremarkable, slight up take and creatinine to 1.9 this morning. Due to worsening renal function, ongoing to stop the Bactrim today and start levofloxacin 750 mg p.o. every other day which is renally dosed. Will also order physical therapy for today, patient is willing to get out of bed and get in her chair. Will also titrate down patient's pain medications today. Likely DC back to SNF in 1 to 2 days pending continued improvement. Although this document has been carefully reviewed, there may still be some phonetic and other typographical errors. These errors are purely grammatical due to imperfections in the software program and should not be construed in any way to compromise the substance of the patient's medical care during this visit.
[2024-11-05] MEDS: HYDROmorphone INJ 2 MG/ML VIAL 0.25 MG IVP ×3 (13:42→23:47)
[2024-11-05] MEDS: LEVOFLOXACIN 250 MG TABLET 750 MG PO (20:46)
[2024-11-06] VITALS (7 sets, daily range): BP systolic 102–119; BP diastolic 52–65; PULSE 67–81; RESP 16–18; TEMP 36.1–36.4; O2SAT 94–98; BMI 36.3
[2024-11-06] MEDS: ONDANSETRON INJ 2 MG/ML INJ 2 ML 4 MG IV ×3 (00:38→13:04)
[2024-11-06] MEDS: HYDROmorphone INJ 2 MG/ML VIAL 0.25 MG IVP ×2 (04:35→13:06)
[2024-11-06] MEDS: MIDODRINE 5 MG TABLET 10 MG PO ×2 (05:16→13:31)
[2024-11-06 05:38] LABS: Basophils % (Auto) 1 % (0-2.5); Eosinophils # (Auto) 0.3 Thou/mm3 (0.0-0.5); Eosinophils % (Auto) 5 % (0-10); Hematocrit 25.2 % (36.0-46.0); Hemoglobin 7.9 g/dL (12.0-16.0); Immature Granulocytes % (Auto) 4 % (0-0); Immature Granulocytes Auto 0.22 Thou/mm3 (0.00-0.00); Lymphocytes % (Auto) 17 % (10-50); Mean Corpuscular HGB Conc 31.3 g/dl (31.0-37.0); Mean Corpuscular Hemoglobin 28.6 pg (25.0-35.0); Mean Corpuscular Volume 91 fL (80-100); Monocytes # (Auto) 0.5 Thou/mm3 (0.0-0.8); Monocytes % (Auto) 9 % (0-12); Neutrophils # (Auto) 3.9 Thou/mm3 (1.8-7.7); Neutrophils % (Auto) 66 % (37-80); Nucleated Red Blood Cell % 0 /100 WBC (0); Platelet Count 310 Thou/mm3 (140-440); RDW Standard Deviation 53.6 fL (36.4-46.3); Red Blood Count 2.76 Miln/mm3 (4.00-5.20); White Blood Count 5.9 Thou/mm3 (3.6-11.0)
[2024-11-06 06:10] LABS: Alanine Aminotransferase 11 U/L (10-49); Albumin, Serum 3.3 gm/dL (3.4-4.8); Albumin/Globulin Ratio 1.4 (1.2-2.2); Alkaline Phosphatase 148 U/L (46-116); Anion Gap 8 (7-16); Aspartate Amino Transferase 19 U/L (0-34); BUN/Creatinine Ratio 11 Ratio (12-20); Bilirubin,Total < 0.2 mg/dL (0.3-1.2); Blood Urea Nitrogen 18 mg/dL (9-23); Calcium 8.7 mg/dL (8.3-10.6); Calcium (Corrected) 9.3 mg/dL (8.5-10.1); Carbon Dioxide 26.9 mMol/L (20.0-31.0); Chloride 102 mMol/L (98-107); Creatinine (Component) 1.7 mg/dL (0.6-1.3); Estimated Creatinine Clearance 32.8 mL/min (>60); Globulin 2.3 gm/dL (2.3-3.5); Glucose 83 mg/dL (74-106); Magnesium 1.9 mg/dL (1.6-2.6); Osmolality,Calculated 274 (275-295); Phosphorous 3.4 mg/dL (2.4-5.1); Potassium 4.4 mMol/L (3.4-5.1); Sodium 137 mMol/L (136-145); Total Protein 5.6 gm/dL (5.7-8.2); eGFR 32 See Note
[2024-11-06] MEDS: HEPARIN SOD INJ 5000 UNIT/ML VIAL SC (08:25)
[2024-11-06] MEDS: PANTOPRAZOLE INJ 40 MG VIAL IV (08:25)
--- NOTE | 2024-11-06 11:04 | PC.SS ---
SS spoke to pt son Tim Hughes in regards to DC today back to [facility]. IMM provided.
--- NOTE | 2024-11-06 17:25 | PD.RESDS ---
Planned Discharge Date 11/06/24 DS: Providers Provider Date of admission: 10/27/24 12:57 Primary care physician: Prasanna Morrell MD Admitting Provider: Kelsey Robles MD Attending Provider on Admission: Suhail Tierney DO Consults: 10/30/24 05:02 Referral Wound Care Stat Comment: bleeding at balbir-area cyst 10/31/24 13:56 Referral - [employer] Stat Service Needed for Transfer: Interventional Radiology Addl Comments:: our IR could not exchange the tube 11/05/24 11:27 Referral Physical Therapy Routine Comment: Physician Instructions: Attending Provider on DC: Andres Mclaughlin MD Discharging Provider: Andres Mclaughlin MD DS: Diagnosis Problem List Completed Was Problem List Reviewed/Reconciled?: Yes Hospital Course Hospital Course Hospital course: Hospital course: Summary: Patient is a 69-year-old female with a past medical history of endometrial cancer on chemo and radiation with last round in August 2024 pending follow-up with oncology in 3 months to determine course, history of recurrent blood transfusion due to chronic anemia, history of COPD,, diabetes mellitus type 2, bilateral obstructive nephrolithiasis status post bilateral nephro ostomy tube who was admitted for Septic Shock secondary source likely bilateral nephrostomy tubes. Urine culture grew stenotrophomonas maltophilia patient was downgraded on 11/01/2024 patient was transferred to [facility] IR department for replacement of nephrostomy tubes, which was successful. Repeat urine cultures grew Klebsiella, the patient was started on IV Bactrim per culture sensitivity, but developed acute kidney injury due to IV Bactrim, antibiotics was switched to levofloxacin every 48 hours based on creatinine clearance. Patient complaining of severe pain, managed with IV Dilaudid, patient takes Percocet at home. Will be discharged with a short course of p.o. Dilaudid for breakthrough pain. The patient is stable, ambulatory, afebrile and tolerating Per oral medications at the time of discharge. The patient understood and agreed to the treatment plan. Follow up with Primary care physician with labs within 3-5 days of discharge. If symptoms persist or worsen, return to the Emergency Department. #Obstructive Nephrolithias s/p nephrostomy tube #Urinary Tract Infection #Stenotrophomonas Maltophlia UTI #Klebsiella pneumonia UTI #WARREN #COPD #Diabetes Mellitus Type II, non-insulin dependent #Hypotensive, improved #Normocytic Anemia #History of Endometrial Cancer #Hyponatremia-resolved #Hyperkalemia-resolved #MIld Transaminitis #Septic Shock Resolved, secondary to nephrostomy tubes - The patient's plan was discussed with attending Dr. Kelsy Mclaughlin PGY2 Status at Discharge Overall status at discharge: patient is progressing back to baseline Time Spent with Patient Time attestation: Total time spent providing and/or coordinating discharge services: 3 0 min Exam Vital Signs Temp Pulse Resp BP Pulse Ox O2 Del Method O2 Flow Rate 97.6 F 70 18 105/65 95 Room Air 3 11/06/24 11:42 11/06/24 13:31 11/06/24 11:42 11/06/24 13:31 11/06/24 11:42 11/06/24 11:42 11/03/24 07:57 Narrative Exam General Appearance: Alert & Oriented X3, well-nourished female who is lying in bed in mild discomfort HEENT: Skull symmetrical and atraumatic. Conjunctivae pin and moist. Pupils equal, round, reactive to light and accommodation (PERRL). External ear without lesion or discharge. Straight, nares patient, mucosa pink, no discharge. No thyroid nodule appreciated. No cervical lymphadenopathy. Cardio: Normal Rate and Rhythm with S1 and S2 heart sounds. No murmurs or extra heart sounds auscultated. No bruits on carotid auscultation. No peripheral edema or cyanosis. Lungs: Symmetric with good expansion. Chest and back non-tender. Breath sounds vesicular without crackles, wheezing or rhonchi Abdomen: Non-tender, Non-distended, Normal Reactive Bowel Sounds Neuro: Alert, cooperative, oriented to person, place, and time. Speech clear. CN grossly intact. Upper motor strength 5/5 and Lower motor strength 4/5. Sensation intact. Discharge Plan Plan Patient Disposition: Xfer Skilled Nsg Fac (SNF) Care Plan Goals: Instructions: -You have been prescribed pain medication Dilaudid 2 mg every 8 hours, to be taken as needed for breakthrough pain, maximum 3 doses daily, please reach out to your oncologist for further pain management. Continue taking antibiotic levofloxacin every other day for 4 more doses. Also started on midodrine to help with blood pressure. -Recommend holding off on Percocet (oxycodone/Tylenol) while you are taking Dilaudid [hydromorphone]. -Home medication Januvia discontinued due to poor kidney function. -Please continue the rest of your home medication -Please follow up with your urologist Dr. Madsen on November 23 at 2:45 for schedule appointment. -Please follow up with your primary care provider within 3 to 5 days of discharge from hospital, and reconciled medications . -If your symptoms worsen,please seek immediate medical attention and return to your nearest emergency room Prescriptions/Referrals Prescriptions/Med Rec: New oxycodone-acetaminophen [Percocet] 5-325 mg tablet 1 tab PO Q8H MDD no more than 3 pills per day PRN (Reason: pain) Qty: 7 0RF midodrine 5 mg Tablet 10 mg PO TID 30 Days Qty: 180 0RF levofloxacin 750 mg tablet 750 mg PO Q48H Qty: 4 0RF hydromorphone [Dilaudid] 2 mg tablet 2 mg PO Q8H MDD max 3 doses daily Qty: 6 0RF Continued ascorbic acid (vitamin C) [Vitamin C] 500 MG tablet 500 mg PO BID Qty: 0 cholecalciferol (vitamin D3) [Vitamin D3] 1,000 UNIT tablet 1,000 unit PO QDAY Qty: 0 glucosamine HCl 500 mg Tablet 1,000 mg PO QAM cyanocobalamin (vitamin B-12) [Vitamin B-12] 1,000 mcg Tablet 1,000 mcg PO QDAY aspirin 81 mg Tablet,Delayed Release (Dr/Ec) 81 mg PO QDAY albuterol 90 mcg/actuation Aerosol 90 mcg INHALATION B1HSQUR PRN (Reason: Wheezing) ferrous sulfate 325 mg (65 mg iron) Tablet,Delayed Release (Dr/Ec) 325 mg PO DAILY Qty: 30 0RF ondansetron HCl 4 mg Tablet 4 mg PO Q6H PRN (Reason: Nausea) pantoprazole [Protonix] 40 mg Tablet,Delayed Release (Dr/Ec) 40 mg PO QDAY diphenhydramine HCl [Benadryl Allergy] 25 mg Tablet 25 mg PO Q12HR PRN (Reason: Itching) ipratropium-albuterol 18-103 mcg/actuation Aerosol 2 spray INHALATION Q6HR PRN (Reason: Shortness Of Breath Or Wheezing) melatonin 5 mg Tablet 5 mg PO HS PRN (Reason: Sleep) magnesium oxide 400 mg magnesium Tablet 400 mg PO QDAY Discontinued Januvia 100 mg Tablet 100 mg PO QDAY Referrals: Prasanna Morrell MD [Primary Care Provider] - Patient/Caregiver Discharge Instructions Discharge Activity: activity as tolerated Education Materials: Anemia Chemo, Anemia and Kidney Disease Print Language: Bulgarian Stand Alone Forms: Debra Award Info., Patient Portal Info Letter Discharge Order Discharge Orders: Discharge (Routine); Ordered 11/06/24 Ordered By: Andres Mclaughlin Quality Discharge Quality Measures VTE prophylaxis MD Attestestation MD Attestation I have discussed and was present for the essential components of the discharge history, physical examination, diagnosis, and discharge treatment plan with the resident. I agree with the patient's discharge care as documented by the resident and amended herein by me. Calvin Tierney DO. The patient understood all discharge instructions, all questions were answered satisfactorily. The patient was instructed to return to the Emergency Department is symptoms worsened or persisted. Patient was stable, afebrile, tolerating p.o. intake at time of discharge. Patient will be discharged on a course of renally dosed levofloxacin 750 mg every other day, see resident note above for additional details. Patient also has appointment with Dr. Madsen, urologist on 23 November which she was made aware. All questions were answered satisfactorily. Although this document has been carefully reviewed, there may still be some phonetic and other typographical errors. These errors are purely grammatical due to imperfections in the software program and should not be construed in any way to compromise the substance of the patient's medical care during this visit.
== END 2024-11-06 15:20 | disposition skilled nursing facility (03) | DRG 871 ==
LOC: SERX 12:48 → SERHOLD 13:13 → S2SX 20:47 → S3NX 11-01 20:54
PROVIDERS: Emergency Medicine; Student in an Organized Health Care Education/Training Program; Admitting Provider Internal Medicine; Emergency Provider Emergency Medicine; PCP Internal Medicine; Visit Provider Student in an Organized Health Care Education/Training Program
DX: A41.50 Gram-negative sepsis, unspecified (principal); J15.0 Pneumonia due to Klebsiella pneumoniae; R65.21 Severe sepsis with septic shock; N13.6 Pyonephrosis; N17.9 Acute kidney failure, unspecified; E87.1 Hypo-osmolality and hyponatremia; J44.0 Chronic obstructive pulmonary disease with (acute) lower respiratory infection; D62 Acute posthemorrhagic anemia; K57.32 Diverticulitis of large intestine without perforation or abscess without bleeding; Z16.24 Resistance to multiple antibiotics; C54.1 Malignant neoplasm of endometrium; K21.9 Gastro-esophageal reflux disease without esophagitis; E11.9 Type 2 diabetes mellitus without complications; J44.9 Chronic obstructive pulmonary disease, unspecified; E87.5 Hyperkalemia; N20.0 Calculus of kidney; K59.00 Constipation, unspecified; D63.8 Anemia in other chronic diseases classified elsewhere; Z92.3 Personal history of irradiation; Z79.84 Long term (current) use of oral hypoglycemic drugs; Z93.6 Other artificial openings of urinary tract status; Z90.710 Acquired absence of both cervix and uterus; Z79.899 Other long term (current) drug therapy; Z79.82 Long term (current) use of aspirin; Z88.8 Allergy status to other drugs, medicaments and biological substances
CPT/HCPCS: 36415; 71045; 74176; 75984; 80053; 80069; 81001; 83036; 83605; 83690; 83735; 83880; 84100; 84145; 84484; 85014; 85018; 85025; 85610; 85730; 86850; 86870; 86900; 86901; 86921; 86922; 87040; 87077; 87081; 87086; 87186; 87400; 87811; 93005; 93225; 93306; 96361; 96365; 96375; 97162; 99152; 99285; C1729; J1171; J1642; J1644; J1815; J1885; J2250; J2405; J2470; J2543; J3010; J3475; J3490; J7030; J7040; J7120; P9016; Q9958; A9270

== ENCOUNTER → 2025-01-25 | Outpatient (CLI) | payer MEDICARE, BC, SELFPAY ==
--- NOTE | 2025-01-25 13:30 | XR_ITS ---
Examination: CT chest, without intravenous contrast. CT abdomen, without intravenous contrast. CT pelvis, without intravenous contrast. 2-D sagittal and coronal reconstructions. 3-D reconstructions. Date and time of exam:January 25, 2025 1425 hours Comparison October 27, 2024 INDICATIONS: Diagnosis endometrial carcinoma, one year ago, nephrostomy tube placement October 2024, restaging CTDI vol (mgy) 14.5 DLP (MGycm)1010 Technique: Multiple CT images, 3.0 mm slice thickness, obtained chest, abdomen, pelvis, with the high-resolution 64 slice scanner.. Sagittal and coronal 2-D reconstructions are obtained. 3-D reconstructions Low dose protocols were performed. One or more of the following dose reduction techniques were used; automated exposure control, adjustment of the mA and/or KV according to patient size, use of iterative reconstruction technique. Findings: No thoracic aortic aneurysm dilatation Pulmonary artery segments are not enlarged. No paratracheal tracheobronchial or bronchopulmonary adenopathy 3 mm pulmonary nodule posterior right lung 4 mm pulmonary nodule right midlung 3 mm pulmonary nodule right lower lobe No visualized liver or splenic lesion Clips in the gallbladder fossa No abdominal or pelvic lymphadenopathy Bilateral percutaneous nephrostomy tube satisfactory position No hydronephrosis Inflammatory change about sigmoid diverticula with marked wall thickening in the sigmoid colon No pelvic mass Contracted urinary bladder Prominent osteopenia IMPRESSION: Noncalcified pulmonary nodules as above, recommend 6 month follow-up CT chest without contrast Bilateral percutaneous surf ostomy tube satisfactory position no hydronephrosis Findings most consistent with mild sigmoid diverticulitis, sigmoid colon mancera are thickened, consider colonoscopy follow-up
== END | disposition home or self-care (01) ==
PROVIDERS: PCP Internal Medicine; Referring Provider Internal Medicine; Visit Provider Internal Medicine
DX: R91.8 Other nonspecific abnormal finding of lung field (principal); Z12.89 Encounter for screening for malignant neoplasm of other sites; C54.1 Malignant neoplasm of endometrium; K57.32 Diverticulitis of large intestine without perforation or abscess without bleeding; Z93.6 Other artificial openings of urinary tract status
CPT/HCPCS: 71250; 74176

== ENCOUNTER → 2025-04-20 | Outpatient (BNVA) | payer MEDICARE, BC, SELFPAY | END | disposition home or self-care (01) | PROVIDERS: PCP Internal Medicine; Referring Provider Internal Medicine; Visit Provider Urology | DX: N13.30 Unspecified hydronephrosis (principal); I12.9 Hypertensive chronic kidney disease with stage 1 through stage 4 chronic kidney disease, or unspecified chronic kidney disease; E11.22 Type 2 diabetes mellitus with diabetic chronic kidney disease; N18.9 Chronic kidney disease, unspecified; C54.1 Malignant neoplasm of endometrium; Z87.440 Personal history of urinary (tract) infections; J44.1 Chronic obstructive pulmonary disease with (acute) exacerbation; E66.01 Morbid (severe) obesity due to excess calories; E78.5 Hyperlipidemia, unspecified | CPT/HCPCS: 99212; G0463 ==

== ENCOUNTER → 2025-05-12 | Outpatient (CLI) | payer MEDICARE, BC, SELFPAY ==
[2025-05-12 09:57] LABS: Basophils # (Auto) 0.0 Thou/mm3 (0.0-0.2); Basophils % (Auto) 0 % (0-2.5); Eosinophils # (Auto) 0.4 Thou/mm3 (0.0-0.5); Eosinophils % (Auto) 2 % (0-10); Hematocrit 29.8 % (36.0-46.0); Hemoglobin 9.0 g/dL (12.0-16.0); Immature Granulocytes Auto 0.21 Thou/mm3 (0.00-0.00); Lymphocytes # (Auto) 1.1 Thou/mm3 (1.0-4.8); Lymphocytes % (Auto) 7 % (10-50); Mean Corpuscular HGB Conc 30.2 g/dl (31.0-37.0); Mean Corpuscular Hemoglobin 26.3 pg (25.0-35.0); Mean Corpuscular Volume 87 fL (80-100); Monocytes # (Auto) 0.6 Thou/mm3 (0.0-0.8); Monocytes % (Auto) 4 % (0-12); Neutrophils # (Auto) 12.3 Thou/mm3 (1.8-7.7); Neutrophils % (Auto) 84 % (37-80); Nucleated Red Blood Cell # 0.00 Thou/mm3 (0.00-0.00); Nucleated Red Blood Cell % 0 /100 WBC (0); Platelet Count 620 Thou/mm3 (140-440); RDW Standard Deviation 51.5 fL (36.4-46.3); Red Blood Count 3.42 Miln/mm3 (4.00-5.20); White Blood Count 14.6 Thou/mm3 (3.6-11.0)
[2025-05-12 10:17] LABS: Vitamin B12 1904 pg/mL (211-911); Vitamin D 25 Hydroxy Total 104.5 ng/mL (7.3-40.2)
[2025-05-12 10:22] LABS: Glucose Estimated Average 103 mg/dL (80-131); Hemoglobin A1C 5.2 % Hgb (4.8-6.0)
[2025-05-12 10:32] LABS: Alanine Aminotransferase < 7 U/L (10-49); Albumin, Serum 3.4 gm/dL (3.4-4.8); Albumin/Globulin Ratio 1.0 (1.2-2.2); Alkaline Phosphatase 525 U/L (46-116); Anion Gap 11 (7-16); Aspartate Amino Transferase 18 U/L (0-34); BUN/Creatinine Ratio 19 Ratio (12-20); Bilirubin,Total < 0.2 mg/dL (0.3-1.2); Blood Urea Nitrogen 36 mg/dL (9-23); Calcium 8.6 mg/dL (8.3-10.6); Calcium (Corrected) 9.1 mg/dL (8.5-10.1); Carbon Dioxide 21.9 mMol/L (20.0-31.0); Cardiac Risk Estimate 5.5 RATIO (3.7-5.6); Chloride 103 mMol/L (98-107); Cholesterol 94 mg/dL (132-200); Creatinine (Component) 1.9 mg/dL (0.6-1.3); Globulin 3.4 gm/dL (2.3-3.5); Glucose 95 mg/dL (74-106); HDL Cholesterol 17 mg/dL (40-60); LDL Cholesterol,Calculated 45 mg/dL (0-130); Osmolality,Calculated 280 (275-295); Potassium 4.8 mMol/L (3.4-5.1); Sodium 136 mMol/L (136-145); Thyroid Stimulating Hormone 3.19 uIU/mL (0.55-4.78); Total Protein 6.8 gm/dL (5.7-8.2); Triglycerides 162 mg/dL (30-150); Uric Acid 7.5 mg/dL (3.1-7.8); eGFR 28 See Note
[2025-05-12 10:45] LABS: Creatinine MALB Rnd Ur 49 mg/dL (30-125); Microalbumin Creat Ratio 310 mg/gCrea (<30); Microalbumin, Random Urine 152 mg/L (0-300)
[2025-05-12 10:51] LABS: Ferritin 624 ng/mL (7.3-270.7)
== END | disposition home or self-care (01) ==
LOC: COPL 08:59
PROVIDERS: PCP Internal Medicine; Referring Provider Internal Medicine; Visit Provider Internal Medicine
DX: I12.9 Hypertensive chronic kidney disease with stage 1 through stage 4 chronic kidney disease, or unspecified chronic kidney disease (principal); E11.22 Type 2 diabetes mellitus with diabetic chronic kidney disease; N18.4 Chronic kidney disease, stage 4 (severe); E78.5 Hyperlipidemia, unspecified
CPT/HCPCS: 36415; 80053; 80061; 82043; 82306; 82570; 82607; 82728; 83036; 84443; 84550; 85025

== ENCOUNTER 2025-05-16 11:43 | Inpatient (IN) | payer MEDICARE, BC, SELFPAY ==
[2025-05-16] VITALS (36 sets, daily range): BP systolic 67–124; BP diastolic 36–78; PULSE 72–126; RESP 18–34; TEMP 36.3–38.4; O2SAT 85–100; BMI 29.2
--- NOTE | 2025-05-16 11:47 | EKG_ITS ---
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1955 Requested By: Radha Matthews Order Number: [id number] Reading MD: Radha Matthews Measurements Intervals [place] Rate: 122 P: 38 AK: 138 QRS: -31 QRSD: 86 T: 54 QT: 317 QTc: 453 Interpretive Statements SINUS TACHYCARDIA POSSIBLE ANTERIOR MYOCARDIAL INFARCTION , PROBABLY OLD [30 ms Q WAVE IN V3/V4, OR R < 0.2 mV IN V4] INFERIOR MYOCARDIAL INFARCTION , PROBABLY OLD [40+ ms Q WAVE AND/OR ST/T ABNORMALITY IN II/aVF] Compared to ECG 03/01/2025 14:01:57 Sinus rhythm no longer present Left-axis deviation no longer present Myocardial infarct finding still present /store/S0/[id number]/ecg/[id number].pdf
--- NOTE | 2025-05-16 11:49 | XR_ITS ---
Examination: CT abdomen and pelvis without contrast. Coronal 3-D reconstructions. Sagittal 2-D reconstructions. Date and time of exam: May 16, 2025, 1214 hours, comparison January 25, 2025 INDICATIONS: Generalized abdominal pain today, diagnosis uterine cancer, history nephrostomy tubes CTDI: vol (mGy): 11.2 DLP: (mGycm): 646 Technique: Axial images of the abdomen have been obtained, 3 mm slice thickness Intravenous contrast material has not been administered. Low dose protocols were performed. One or more of the following dose reduction techniques were used; automated exposure control, adjustment of the mA and/or KV according to patient size, use of iterative reconstruction technique. Findings: Small pericardial effusion No focal liver or splenic lesions Absent gallbladder No pancreatic or adrenal mass Bilateral nephrostomy ureteral catheters noted with no significant hydronephrosis Free fluid in the abdomen Multiple diverticula in the sigmoid colon, marked thickening of the sigmoid colon with edema and some areas of the sigmoid colon axial image 146 Free fluid in the pelvis, mild Anteverted uterus Suspicious for pneumoperitoneum in the pelvis IMPRESSION: Bilateral nephrostomy ureteral catheter satisfactory position with no significant hydronephrosis Findings most consistent with acute sigmoid diverticulitis with localized rupture of diverticula and mild pelvic pneumoperitoneum Recommend close clinical observation and consider surgery consultation
--- NOTE | 2025-05-16 12:05 | PD.EDADULT ---
ED General RME/HPI General Chief complaint: Abdominal Pain Stated complaint: ABDOMINAL PAIN Time Seen by Provider: 05/16/25 11:47 Arrival date/time: 05/16/25 11:43 RME / HPI RME / HPI narrative: Maxine is a 70 y/o female with PMHx of nephrolithiasis (s/p bilateral nephrostomy tubes in September 2024), endometrial cancer (in remission, sees Rad/Onc in [place]), ? COPD, obesity, noninsulin dependent T2DM, and anemia who comes in for evaluation of abdominal pain, vomiting, headache, onset yesterday, has not taken anything of abdominal pain, rated 10/10. Pt reports that she was getting physical therapy with her physical therapist and he could not get a blood pressure on her. She was also endorsing fever and chills and then was sent to the ED. Currently, she says her abdominal pain is more pronounced on the right lower side compared to the left and she says that she was recently diagnosed with some form of colitis on the previous CT scan, however did not get a colonoscopy. She denies having any bloody vomit, dark bowel movements, sometimes however she says she has dark bowel movements because she takes iron at home for chronic anemia. She does endorse some mild pain in the back however is more lower at this time. Her hybrid corn breeder is Dr. Colmenares. She lives in [place]. She says she used to be on oxygen for previous diagnosis of her COPD, however she does not use it anymore as she was taken off it. She says that she was supposed to get her nephrostomy tubes replaced earlier this year, however was not able to be done so by interventional radiologist. Hx of appendenctomy and cholecystectomy. No other complaints this time. Related Data Home Medications ?Medication ?Instructions ?Recorded ?Confirmed ascorbic acid (vitamin C) 500 mg 500 mg PO BID #0 tabs 08/15/15 04/20/25 tablet (Vitamin C) cholecalciferol (vitamin D3) 25 1,000 unit PO QDAY #0 tabs 08/15/15 04/20/25 mcg (1,000 unit) capsule (Vitamin D3) aspirin 81 mg tablet,delayed 81 mg PO QDAY 07/01/19 04/20/25 release cyanocobalamin (vitamin B-12) 1,000 mcg PO QDAY 07/01/19 04/20/25 1,000 mcg tablet (Vitamin B-12) glucosamine HCl 500 mg tablet 1,000 mg PO QAM 07/01/19 04/20/25 albuterol 90 mcg/actuation aerosol 90 mcg inhalation [id number] PRN 04/30/23 04/20/25 inhaler Wheezing diphenhydramine HCl 25 mg tablet 25 mg PO Q12HR PRN Itching 06/14/23 04/20/25 (Benadryl Allergy) ipratropium 18 mcg-albuterol 103 2 spray inhalation Q6HR PRN 06/14/23 04/20/25 mcg/actuation aerosol inhaler Shortness Of Breath Or Wheezing magnesium oxide 400 mg PO QDAY 06/14/23 04/20/25 melatonin 5 mg tablet 5 mg PO HS PRN Sleep 06/14/23 04/20/25 ondansetron HCl 4 mg tablet 4 mg PO Q6H PRN Nausea 06/14/23 04/20/25 pantoprazole 40 mg tablet,delayed 40 mg PO QDAY 06/14/23 04/20/25 release (Protonix) Previous Rx's ?Medication ?Instructions ?Recorded ferrous sulfate 325 mg (65 mg 325 mg PO DAILY #30 tabs 05/07/23 iron) tablet,delayed release oxycodone-acetaminophen 5 mg-325 1 tab PO Q8H PRN pain #7 tabs 11/04/24 mg tablet (Percocet) hydromorphone 2 mg tablet 2 mg PO Q8H #6 tabs 11/06/24 (Dilaudid) levofloxacin 750 mg tablet 750 mg PO Q48H #4 tabs 11/06/24 Allergies Allergy/AdvReac Type Severity Reaction Status Date / Time cephalexin Allergy Severe DIARRHEA Verified 03/01/25 13:40 coconut oil Allergy Severe Rash Verified 10/31/24 12:33 Sulfa (Sulfonamide Allergy Verified 04/20/25 10:15 Antibiotics) Review of Systems Review of Systems Narrative Review of Systems: 12 point ROS reviewed and is otherwise negative unless stated directly in the HPI ED Exam Narrative Physical exam: General: AAOx3, NAD, morbidly obese HEENT: Moist mucous membranes, conjunctiva clear, EOMI, PERRLA, Cardiovascular: S1, S2, radial pulses +2 bilat, RRR Pulmonary: CTAB bilat no cough, no wheezing GI: Limited abdominal pain due to severe tenderness : Bilat nephrostomy tubes draining appropriately, yellow urine non cloudy. Extremities: No presence of trace or pitting edema in lower extremities bilaterally, dorsalis pedis pulses +2 bilaterally Neuro: AAOx3, no focal motor or sensory deficits in the UE or LE bilat Psych: Good judgement, thought and behavior Course Quality Measures none Orders Category Date Time Status Bedside COVID-19 Antigen Test NOW Care 05/16/25 11:48 Active EKG (ED ONLY) *Do not use* NOW Care 05/16/25 11:47 Completed Insert IV NOW Care 05/16/25 11:48 Active NPO NOW Care 05/16/25 15:36 Active Consult to General Surgery Stat Cons 05/16/25 15:38 Ordered Diet NPO (NOW) Diet 05/16/25 15:[address] abdomen pelvis wo con Stat Exams 05/16/25 11:49 Completed EKG (ED Only) Stat Exams 05/16/25 11:47 Draft XR chest 1V portable Stat Exams 05/16/25 12:13 Completed ABG [Arterial Blood Gas] Stat Lab 05/16/25 16:41 Ordered Antibody Identification Stat Lab 05/16/25 12:11 Completed Blood Culture (Lab) Stat Lab 05/16/25 12:11 Received CBC Stat Lab 05/16/25 12:00 Completed CMP [Comprehensive Metabolic Panel] Stat Lab 05/16/25 12:00 Completed Influenza A & B Rapid Panel Stat Lab 05/16/25 12:29 Completed Lactic Acid [Lactate (Lactic Acid)] Stat Lab 05/16/25 12:00 Completed Lactic Acid [Lactate (Lactic Acid)] Stat Lab 05/16/25 15:16 Completed Lipase Stat Lab 05/16/25 12:00 Completed Mag [Magnesium] Stat Lab 05/16/25 12:00 Completed Phosphorous Stat Lab 05/16/25 12:00 Completed Procalcitonin Stat Lab 05/16/25 12:00 Completed Troponin I Stat Lab 05/16/25 12:00 Completed Type and Screen Stat Lab 05/16/25 12:11 Completed Urinalysis, C/S if Indicated Stat Lab 05/16/25 15:55 Received Venous Blood Gas Stat Lab 05/16/25 12:11 Completed Acetaminophen Ivpb [Ofirmev Inj] Med 05/16/25 16:05 Discontinued 1,000 mg in 100 ml IV X1 CIPROFLOXACIN/D5w 400 MG IVPB [Cipro Ivpb] Med 05/16/25 12:52 Discontinued 400 mg in 200 ml IV X1 HYDROmorphone INJ [Dilaudid Inj] Med 05/16/25 14:01 Discontinued 1 mg IVP X1 ONE Pantoprazole Inj [Protonix Inj] Med 05/16/25 12:21 Discontinued 40 mg IVP X1 ONE Ringers Lactated 1000 ml [Lactated Ringers] 1,000 ml Med 05/16/25 11:49 Discontinued IV 999 mls/hr Ringers Lactated 1000 ml [Lactated Ringers] 1,000 ml Med 05/16/25 12:35 Discontinued IV 999 mls/hr Ringers Lactated 500 ml [Lactated Ringers] 500 ml Med 05/16/25 15:37 Discontinued IV 999 mls/hr metroNIDAZOLE/NS 500 MG IVPB [Flagyl 500 mg IV] Med 05/16/25 14:20 Discontinued 500 mg in 100 ml IV X1 Vital Signs Vital signs: Vital Signs Pulse Rate 72 05/16/25 11:50 Respiratory Rate 31 H 05/16/25 11:50 Discharge Plan Plan Patient Disposition: Admit Acute Care w/in Hospital Problem List Clinical Impression: Sepsis MD Attestation Attestation I, Dr. Radha Dey MD, were evaluated this patient in the emergency department did a history and physical exam, was involved in the management and discussed with the resident, reviewed the chart and agree with the note. MDM Narrative MDM hospital course (for use when minimal MDM required): 1200: Sepsis Labs, CXR, abd/pelvis, Protonix 40 mg IV, type and screen, LR 1L Bolus 1240: Lactic acid 4.8, ordered repeat check and additional 1 L bolus. WBC 16, Hgb 10.7. Pending other labs. Added ciprofloxacin x1 1420: Contacted general surgeon, Dr. Fuentes and someone had picked up his phone to take a message. Informed them of acute sigmoid diverticulitis seen on CT with recommendation of surgical consultation. Added flagyl x1 and gave dilaudid 1 mg x1. 1540: Spoke with General Surgeon, Dr. Fuentes, recommends admission with IV antibiotics and keep patient NPO. Will see patient as consult. 1548: Spoke with hospitalist who will review and discuss patient for admission. 1600: Spoke with ICU doctor, Dr. Coker, who will take the patient for admission. Medication Administration(s) Medication Administration History Metronidazole (Flagyl 500 Mg Iv) 500 mg in 100 mls @ 200 mls/hr IV Q8HR JESSICA Stop: 05/23/25 21:59 Norepinephrine/Dextrose (Levophed In D5w 8mg/250ml) 8 mg in 250 mls @ 6.785 mls/hr IV .Q24H PRN; Protocol PRN Reason: PER PROTOCOL Stop: 06/15/25 17:48 Last Admin: 05/16/25 17:54 Dose: 0.05 mcg/kg/min, 6.785 mls/hr Documented By: LALA Lactated Ringer's (Lactated Ringers) 1,000 mls @ 999 mls/hr IV .Q1H1M ONE Stop: 05/16/25 18:50 Last Admin: 05/16/25 17:55 Dose: 999 mls/hr Documented By: LALA Pharmacy Consult (Pharmacy Renal Dose Adjustment 1 Ea) 1 each XX PRN PRN PRN Reason: CONSULT Stop: 06/15/25 16:36 Discontinued Medications Hydromorphone HCl (Hydromorphone Inj 2 Mg/Ml Vial) 1 mg IVP X1 ONE Stop: 05/16/25 14:02 Last Admin: 05/16/25 14:10 Dose: 1 mg Documented By: LALA Lactated Ringer's (Lactated Ringers) 1,000 mls @ 999 mls/hr IV .Q1H1M ONE Stop: 05/16/25 12:49 Last Infusion: 05/16/25 12:41 Dose: Infused Documented By: Admin: 05/16/25 12:08 Dose: 999 mls/hr Documented By: LALA Lactated Ringer's (Lactated Ringers) 1,000 mls @ 999 mls/hr IV .Q1H1M ONE Stop: 05/16/25 13:35 Last Infusion: 05/16/25 16:56 Dose: Infused Documented By: Admin: 05/16/25 12:43 Dose: 999 mls/hr Documented By: LALA Ciprofloxacin/Dextrose (Cipro Ivpb) 400 mg in 200 mls @ 200 mls/hr IV X1 ONE Stop: 05/16/25 13:51 Last Infusion: 05/16/25 17:08 Dose: Infused Documented By: Admin: 05/16/25 13:11 Dose: 200 mls/hr Documented By: LALA Metronidazole (Flagyl 500 Mg Iv) 500 mg in 100 mls @ 100 mls/hr IV X1 ONE Stop: 05/16/25 15:19 Last Infusion: 05/16/25 17:08 Dose: Infused Documented By: Admin: 05/16/25 16:02 Dose: 100 mls/hr Documented By: LALA Lactated Ringer's (Lactated Ringers) 500 mls @ 999 mls/hr IV .Q31M ONE Stop: 05/16/25 16:07 Last Infusion: 05/16/25 16:56 Dose: Infused Documented By: Admin: 05/16/25 16:16 Dose: 999 mls/hr Documented By: LALA Acetaminophen (Ofirmev Inj) 1,000 mg in 100 mls @ 250 mls/hr IV X1 ONE Stop: 05/16/25 16:28 Last Infusion: 05/16/25 17:08 Dose: Infused Documented By: Admin: 05/16/25 16:16 Dose: 250 mls/hr Documented By: LALA Ceftriaxone Sodium 2 gm/ (Sodium Chloride) 50 mls @ 100 mls/hr IV QDAY JESSICA Stop: 05/23/25 16:34 Norepinephrine/Dextrose (Levophed In D5w 8mg/250ml) 8 mg in 250 mls @ 6.785 mls/hr IV .Q24H PRN; Protocol PRN Reason: PER PROTOCOL Stop: 06/15/25 17:48 Norepinephrine/Dextrose (Levophed In D5w 8mg/250ml) Confirm Administered Dose 8 mg in 250 mls @ ud IV .STK-MED ONE Stop: 05/16/25 17:50 Last Admin: 05/16/25 18:00 Dose: Not Given Documented By: LALA Non-Admin Reason: Override Medication Ondansetron HCl (Ondansetron Inj 2 Mg/Ml Inj 2 Ml) 4 mg IVP X1 ONE; Protocol Stop: 05/16/25 16:44 Last Admin: 05/16/25 16:49 Dose: 4 mg Documented By: LALA Pantoprazole Sodium (Pantoprazole Inj 40 Mg Vial) 40 mg IVP X1 ONE Stop: 05/16/25 12:22 Last Admin: 05/16/25 12:41 Dose: 40 mg Documented By: WL Consultations/Discussions re: Management Consult #1: Date/time: 05/16/25 2:21 pm Physician, specialty, service, details: 1420: Contacted general surgeon, Dr. Fuentes and someone had picked up his phone to take a message. Informed them of acute sigmoid diverticulitis seen on CT with recommendation of surgical consultation. Consult #2: Date/time: 05/16/25 3:48 pm Physician, specialty, service, details: 1548: Spoke with hospitalist who will review and discuss patient for admission. Consult #3: Date/time: 05/16/25 6:30 pm Physician, specialty, service, details: 1600: Spoke with organizational development director, Dr. Coker, who agrees to take patient for admission. Diagnosis Diagnoses ruled out and/or further discussions: Sepsis, UTI, ischemic bowel, AMI,
[2025-05-16] MEDS: RINGERS LACTATED 1000 ML 1,000 ML 999 ML IV ×3 (12:08→17:55)
--- NOTE | 2025-05-16 12:13 | XR_ITS ---
EXAMINATION: AP chest single view TECHNIQUE: Portable supine AP chest single view Date and time: May 16, 2025, 1239 hours, comparison October 30, 2024 INDICATIONS: Fever today FINDINGS: Pneumonia left base obscuring detail left hemidiaphragm Possible left lower disease Right internal jugular Port-A-Cath satisfactory position Moderate osteopenia IMPRESSION: Significant left base pneumonia
[2025-05-16 12:25] LABS: Base Excess, Venous -10 (-3-3); O2 Saturation, Venous 79 % (96-97); PCO2, Venous 36 mmHg (36-56); PO2, Venous 49 mmHg (15-58); pH, Venous 7.26 (7.33-7.66)
[2025-05-16 12:27] LABS: Basophils # (Auto) 0.1 Thou/mm3 (0.0-0.2); Basophils % (Auto) 0 % (0-2.5); Eosinophils # (Auto) 0.0 Thou/mm3 (0.0-0.5); Eosinophils % (Auto) 0 % (0-10); Hematocrit 33.7 % (36.0-46.0); Hemoglobin 10.2 g/dL (12.0-16.0); Immature Granulocytes Auto 0.13 Thou/mm3 (0.00-0.00); Lymphocytes # (Auto) 1.3 Thou/mm3 (1.0-4.8); Lymphocytes % (Auto) 8 % (10-50); Mean Corpuscular HGB Conc 30.3 g/dl (31.0-37.0); Mean Corpuscular Hemoglobin 26.6 pg (25.0-35.0); Mean Corpuscular Volume 88 fL (80-100); Monocytes # (Auto) 0.5 Thou/mm3 (0.0-0.8); Monocytes % (Auto) 3 % (0-12); Neutrophils # (Auto) 14.3 Thou/mm3 (1.8-7.7); Neutrophils % (Auto) 88 % (37-80); Nucleated Red Blood Cell # 0.00 Thou/mm3 (0.00-0.00); Nucleated Red Blood Cell % 0 /100 WBC (0); Platelet Count 602 Thou/mm3 (140-440); RDW Standard Deviation 52.7 fL (36.4-46.3); Red Blood Count 3.84 Miln/mm3 (4.00-5.20); White Blood Count 16.3 Thou/mm3 (3.6-11.0)
[2025-05-16 12:31] LABS: Lactate (Lactic Acid) 4.8 mMol/L (0.4-2.0)
--- NOTE | 2025-05-16 12:47 | PC.NURSE ---
Pt BIBA fro c/o abdominal pain/ N/V/D that started 2 days ago, Pt stated she has been having chills along with abdominal pain. Pt was unable to be obtain by EMS at site, bp paris in ED 82/51. pt GCS 15 A&O x4, temperature 101 rectally. tachycardic at 125. Sepsis alert called, fluids started in EMS (200ml). Currently pt continues to be alert and oreinted x4, c/o pain to her right lower abdomen with any movement. BP low at SBP 60-80. Dr. Bocanegra made aware. New order for more fluids. Pt did state her baseline SBP is 90 and takes midodrine.
[2025-05-16 12:59] LABS: Alanine Aminotransferase < 7 U/L (10-49); Albumin, Serum 3.2 gm/dL (3.4-4.8); Albumin/Globulin Ratio 1.0 (1.2-2.2); Alkaline Phosphatase 457 U/L (46-116); Anion Gap 17 (7-16); Aspartate Amino Transferase 18 U/L (0-34); BUN/Creatinine Ratio 14 Ratio (12-20); Bilirubin,Total 0.2 mg/dL (0.3-1.2); Blood Urea Nitrogen 33 mg/dL (9-23); Calcium 8.6 mg/dL (8.3-10.6); Calcium (Corrected) 9.2 mg/dL (8.5-10.1); Carbon Dioxide 15.8 mMol/L (20.0-31.0); Chloride 105 mMol/L (98-107); Creatinine (Component) 2.3 mg/dL (0.6-1.3); Estimated Creatinine Clearance 21.2 mL/min (>60); Globulin 3.1 gm/dL (2.3-3.5); Glucose 154 mg/dL (74-106); Lipase 18 U/L (12-53); Magnesium 1.9 mg/dL (1.6-2.6); Osmolality,Calculated 285 (275-295); Potassium 4.6 mMol/L (3.4-5.1); Procalcitonin 25.58 ng/ml (0.0-0.49); Sodium 138 mMol/L (136-145); Total Protein 6.3 gm/dL (5.7-8.2); Troponin I < 0.002 ng/mL (0.0-0.045); eGFR 22 See Note
[2025-05-16 13:06] LABS: Influenza A Ag Negative; Influenza B Ag Negative
[2025-05-16] MEDS: CIPROFLOXACIN/D5w 400 MG IVPB 400 MG/200 ML BAG 200 MG IV ×2 (13:11→21:06)
[2025-05-16 13:42] LABS: Phosphorous 4.0 mg/dL (2.4-5.1)
[2025-05-16] MEDS: HYDROmorphone INJ 2 MG/ML VIAL 1 MG IVP (14:10)
[2025-05-16 15:22] LABS: Reflex Lactate? Y
[2025-05-16 15:27] LABS: Lactate (Lactic Acid) 3.7 mMol/L (0.4-2.0)
--- NOTE | 2025-05-16 15:52 | PD.SURCONS ---
HPI Consult details Consult date: 05/16/25 Reason for consultation narrative: Sigmoid diverticulitis History of present illness: 70-year-old female with history of diabetes, hyperlipidemia, COPD, cervical cancer status post chemo and radiation, bilateral hydronephrosis status post bilateral nephrostomy tube placement presented to the emergency department with worsening abdominal pain and diarrhea. Her pain started in the lower abdomen and has been getting progressively worse. She has had some diarrhea but denies nausea, vomiting, fever, chills, dysuria or pneumaturia. She has had colonoscopy over 10 years ago. She denies history of blood per rectum. She has lost significant weight due to decreased appetite. CT scan was obtained that revealed sigmoid diverticulitis with localized rupture. Review of Systems Constitutional Constitutional: Denies chills and Denies fever(s) Cardiovascular Cardiovascular: Denies chest pain Respiratory Respiratory: Denies cough Gastrointestinal Gastrointestinal: Reports abdominal pain, Denies nausea and Denies vomiting Hematologic/Lymphatic Hematologic/Lymphatic: Denies easy bleeding and Denies easy bruising Past Medical History Surgical History OTHER SURGICAL HX: Multiple abdominal hernia surgeries, appendectomy, cholecystectomy, bilateral nephrostomy tube placement Meds Home Medications and Allergies Home Medications ?Medication ?Instructions ?Recorded ?Confirmed ?Type pantoprazole 40 mg tablet,delayed 40 mg PO QDAY 06/14/23 05/17/25 History release (Protonix) acetaminophen 500 mg capsule 500 mg PO BID PRN pain 05/17/25 05/17/25 History aspirin 81 mg tablet 81 mg PO QDAY 05/17/25 05/17/25 History atorvastatin 20 mg tablet 20 mg PO DAILY CHOLESTEROL 05/17/25 05/17/25 History cyanocobalamin (vitamin B-12) 100 100 mcg PO QDAY 05/17/25 05/17/25 History mcg tablet (Vitamin B-12) ferrous sulfate 325 mg (65 mg 65 mg PO BID 05/17/25 05/17/25 History iron) tablet (iron) fludrocortisone 0.1 mg tablet 0.1 mg PO DAILY 05/17/25 05/17/25 History hydrocodone 10 mg-acetaminophen 1 tab PO Q6H PRN pain 05/17/25 05/17/25 History 325 mg tablet magnesium glycinate 100 mg (as 400 mg PO BID 05/17/25 05/17/25 History glycinate) tablet (Mag Glycinate) midodrine 5 mg tablet 5 mg PO Q8H 05/17/25 05/17/25 History Allergies Allergy/AdvReac Type Severity Reaction Status Date / Time cephalexin Allergy Severe DIARRHEA Verified 03/01/25 13:40 coconut oil Allergy Severe Rash Verified 10/31/24 12:33 Sulfa (Sulfonamide Allergy Verified 04/20/25 10:15 Antibiotics) Exam Vital Signs Temp Pulse Resp BP Pulse Ox O2 Del Method O2 Flow Rate 98.1 F 107 H 23 H 90/55 L 99 Room Air 2 05/16/25 15:14 05/16/25 15:14 05/16/25 15:14 05/16/25 15:14 05/16/25 15:14 05/16/25 15:14 05/16/25 15:14 Constitutional Constitutional: moderate distress Routine Abdominal Exam Comments: Abdomen is soft and nondistended. She has tenderness to palpation over lower abdomen with guarding and localized rebound tenderness. No evidence of diffuse peritonitis at this time Results Results: Laboratory Laboratory results: results reviewed Results: Imaging CT scan - abdomen: report reviewed and image reviewed CT scan - pelvis: report reviewed and image reviewed Assessment & Plan Problem List (1) Diverticulitis of large intestine with perforation without abscess or bleeding: Status: Acute Plan Keep n.p.o. with IV fluids and IV antibiotics. If symptoms improve we will continue to course. If symptoms worsen or clinical course deteriorates she may require exploratory laparotomy with sigmoid colectomy and colostomy.
[2025-05-16] MEDS: metroNIDAZOLE/NS 500 MG IVPB 500 MG/100 ML BAG 100 MG IV (16:02)
[2025-05-16] MEDS: RINGERS LACTATED 500 ML 500 ML 999 ML IV (16:16)
[2025-05-16] MEDS: ACETAMINOPHEN IVPB 1,000 MG/100 ML VIAL 250 MG IV ×2 (16:16→21:07)
--- NOTE | 2025-05-16 16:43 | PD.RESEVENT ---
Documentation for date of: 05/16/25 Event Note Event Note: Maxien Kiser 70 female PMHx of nephrolithialsis s/p b/l nephrstomy tubes 09/2024, endometrial CA (remission, rad/onc in [place]) s/p radiation and chemotherapy, COPD, obesity, [id number], and anemia presents with excruciating 10/10 abdominal pain to ED. ED consulted IM for sepsis 2/2 complicated by ruptured sigmoid diverticulitis. On chart review, ED workup included left-shift leukocytosis WBC 16.3, lactate 4.8 --> 3.7, and procal 25.58; signs of acute bacterial infection. BMP showed bicarb 15.8, BUN 33, and Cr 2.3. Baseline creatinine around ~1.9, insurance account representative of acute on chronic WARR[place]. Anion gap of 17, VBG showed pH 7.26, pCO2 36. Anion-gap metabolic acidosis possibly due to history of bicarb loss in stool and/or severe sepsis due to hypoperfusion of tissues. CT scan of abdomen/pelvis showed findings most consistent with acute sigmoid diverticulitis with localized rupture of diverticula and mild pelvic pneumoperitoneum. In ED, given cipro 400mg IV x1 and metronidazole 500mg IV x1 for empiric coverage, 2.5 L of LR for aggressive fluid resuscitation (no Hx of CHF) , hydromorphone 1mg IV x1 and tylenol 1g IV x1 for pain control, and pantoprazole 40mg IV. General Surgery was consulted, Dr. Fuentes. At bedside, patient was AOx4, tachycardic 107, BP 90s/60s on LR half liter, sating well 97% 2L NC, and tachypneic RR 23. On physical exam, abdominal exam was distended, generalized tenderness with RLQ TTP illiciting guarding. No BS present. US of IVC showed a non-collapsible IVC, showing a change in the patient fluid response from responsive to non-responsive. ICU was contacted for patient meeting criteria of septic shock. ICU Dr. Colon agreed to take patient for ICU admission. Case was discussed with Attending Dr. Villanueva, and Senior Resident Dr. Servando Byrd, DO PGY-1
[2025-05-16] MEDS: ONDANSETRON INJ 2 MG/ML INJ 2 ML 4 MG IVP ×2 (16:49→20:37)
--- NOTE | 2025-05-16 17:46 | XR_ITS ---
EXAMINATION: AP chest single view TECHNIQUE: AP portable semiupright chest single view Date and time: May 16, 2025, 1758 hours, comparison May 16, 2025 12:29 p.m. INDICATIONS: Post central line placement FINDINGS: Interval left internal jugular central line tip SVC Port-A-Cath line in satisfactory position Pneumonia left base obscuring detail left hemidiaphragm Moderate prominence left ventricle IMPRESSION: Interval left internal jugular central line, tip in the SVC satisfactory position No pneumothorax
[2025-05-16] MEDS: Norepinephrine/D5W 8mg/250ml 8 MG/250 ML BAG 6.785 MG IV (17:54)
[2025-05-16 18:13] LABS: Collection Type, Urine Catheter
--- NOTE | 2025-05-16 18:16 | PC.NURSE ---
Pt's plan of care is to be admitted to the ICU for vasopressor support. Pt had TLC to the LIJ placed by Dr. Coker and his team, pt tolerated well, per Dr. Coker we may access central line for levophed. Levophed was started after line placed, pt is pale and c/o feeling dizzy. Dr. Coker also placed order for another 1L LR bolus. After 10 minutes on Levophed pt's bp normalized. She stated she felt a little better but her abdomen continues to hurt.
[2025-05-16 18:24] LABS: Reflex Lactate? Y
--- NOTE | 2025-05-16 18:24 | ESOP_ITS ---
PROCEDURES: Procedure Date / Time 05/16/25 1746 Central Line Placement Left IJ: Indication(s): septic shock Time out done, and the following verified: correct patient, side and site, procedure, patient position and implants and/or equipment Patient placed on monitor/pulse ox: Yes Hand Hygiene: scrub, soap & water and alcohol-based hand rub Max Sterile Barrier Techniques used: cap, mask, sterile gown, sterile gloves and sterile full body drape Central line prep: Povidone-Iodine 1%, Chlorhexidine scrub and sterile drapes applied Local anesthesia used: lidocaine 1% Amount of anesthesia used (mL): 5 Ultrasound used for placement: Yes Sterile Technique if Ultrasound used, including sterile gel: yes Central line lumen inserted: triple Post procedure: sutured in place, good blood return, all ports aspirated, flushed, capped and sterile dressing applied Post procedure x-ray: tip of catheter in good position and no pneumothorax seen EBL(ml): 5 Complications: none Procedure comment: Left IJV central Line placement A time out was performed. My hands were washed immediately prior to the procedure. I wore a surgical cap, mask with protective eyewear, full gown and sterile gloves throughout the procedure. The patient was placed in Trendelenburg position. Left chest region was prepped using chlorhexidine scrub and draped in sterile fashion using a full drape and sterile probe cover and sterile gel employed. The medial and lateral heads of the sternocleidomastoid muscle were identified as was the carotid pulse. The left Internal Jugular vein was identified using the ultrasound. Anesthesia was achieved over the vein usin g 1% lidocaine. Using real-time out of plane guidance, the introducer needle was inserted into the left Internal Jugular vein under direct ultrasound visualization. Venous blood was withdrawn. The syringe was removed and a guidewire was advanced into the introducer needle. The guidewire was visualized in the Internal Jugular Vein by ultrasound. A small incision was made at the skin surface with a scalpel and the introducer needle was exchanged for a dilator over the guidewire. After appropriate dilation was obtained, the dilator was exchanged over the wire for a central venous catheter. The wire was removed and the catheter was sutured in place. A sterile sorbaview shield was placed over the catheter at the insertion site. The patient tolerated the procedure without any hemodynamic compromise. At time of procedure completion, all ports aspirated and flushed properly. Post-procedure chest x-ray is pending at this time. Estimated blood loss is <5cc. Procedure performed under the supervision of ICU attending,Dr Coker. Becca Diop DO PGY-1 Procedure Narrative Procedure Narrative: Attending Attestation: I was present for the entire procedure. Minimal blood loss. No immediate complications. Patient tolerated procedure well. No post procedure PTX, catheter tip in adequate position.
[2025-05-16 18:36] LABS: Base Excess, Venous -7 (-3-3); Lactate (Lactic Acid) 3.9 mMol/L (0.4-2.0); O2 Saturation, Venous 81 % (96-97); PCO2, Venous 32 mmHg (36-56); PO2, Venous 46 mmHg (15-58); pH, Venous 7.36 (7.33-7.66)
[2025-05-16 18:44] LABS: Bacteria,Urine 4+; Bilirubin,Urine Negative (Negative); Blood,Urine 2+ (Negative); Color,Urine Yellow (Lt Yel-Yel); Glucose, Urine Negative (Negative); Hyaline Casts,Urine < 1 /hpf (0-1); Ketones,Urine Negative (Negative); Leukocyte Esterase,Urine Positive (Negative); Nitrite,Urine Negative (Negative); PH,Urine 6.0 (5.0-7.0); Protein,Urine 1+ (Neg - Trace); RBC,Urine 54 /hpf (0-3); Specific Gravity,Urine 1.021 (1.001-1.035); Squamous Epithelial Cell,Urine < 1 /hpf (0-5); Uric Acid Crystals,Urine Rare; Urobilinogen,Urine Negative mg/dL (0.0-1.0); WBC,Urine 1069 /hpf (0-5)
[2025-05-16 18:50] LABS: Clarity,Urine Turbid (Clear/Hazy); Culture Indicated,Urine Yes
[2025-05-16 19:25] LABS: Allen Test Performed/OK; Base Excess -6 (-3-3); HCO3 18 mEq/L (20-26); Inspired Oxygen, FIO2 21 %; O2 Saturation 96 % (91-98); PCO2 29 mmHg (32.0-48.0); PO2 86 mmHg (83-108); Puncture Site Left Radial; pH, Arterial 7.41 (7.35-7.45)
--- NOTE | 2025-05-16 19:36 | ESHP_ITS ---
<Statement entered by Tim Anguiano MD - 05/17/25 19:45> Patient seen and examined at bedside. I discussed and supervised with the healthcare administration internship physician who took care of this patient. I personally saw and examined the patient. I agree with most of the assessment and plan. Plan of care discussed with attending Dr. Coker. Tim Anguiano MD PGY-2 Documentation for date of: 05/16/25 HPI History of Present Illness History of present illness: 70-year-old female with a medical history significant for nephrolithiasis (status post bilateral nephrostomy tubes in September 2024), endometrial cancer (in remission, s/p chemo and radiation), non-insulin dependent type 2 diabetes mellitus, anemia, and COPD presents with severe 10/10 abdominal pain and non- bloody vomiting that began one day ago. Patient reports that the abdominal pain is present even with slight movements. The abdominal pain is worse on the right lower quadrant. Patient endorses associated symptoms of fever, chills, and headache. A limited history was obtained from the patient due to significant pain, as she reports that even speaking exacerbates her discomfort. General surgery was consulted. Patient was admitted to the ICU for septic shock. ED Course: -Initial vitals were: BP 84/58, HR 72, RR 31, T 101.1F, O2 sat 100% on oxy mask. -Labs significant for: WBC 16.3, RBC 3.84, Hgb 10.2, Hct 33.7, MCHC 30.3, Plt 602, bicarbonate 15.8, anion gap 17, BUN 33, Cr 2.3, eGFR 22, glucose 154, lactic acid 4.8, ALT < 7, ALP 457, albumin 3.2, procalcitonin 25.58. VBG pH 7.26, pCO2 36, pO2 49, O2 sat 79%. Urinalysis WBC 1069, positive leukocyte esterase. -Imaging included: CT abd/pelvis: bilateral nephrostomy ureteral catheter with no significant hydronephrosis, acute sigmoid diverticulitis with localized rupture of diverticula and mild pelvic pneumoperitoneum. -In the ED, patient was given: LR 2.5L, pantoprazole 40 mg IV x1, Ciprofloxacin 400mg in 200 mls IV x1, hydromorphone 1 mg IV x1, Metronidazole 500 mg IV x1, acetaminophen 1000 mg IV x1, ondansetron 4mg IV x1. Past Medical History: as above Past Surgical History: bilateral nephrostomy tubes in [place] 2024, appendenctomy and cholecystectomy. Family History: extensive family history of cardiac disease and lung problems. Social History: - Smoking: denies - Alcohol: denies - Illicit drugs: denies - Residence: lives in [place] in a SNF. Current Medications: pending med recs. Allergies: cephalexin - diarrhea, sulfa antibiotics - rash, coconut oil - rash. Review of Systems Review of Systems Narrative Review of Systems: All 13 review of systems are negative except as listed above in the HPI. Exam Vital Signs Temp Pulse Resp BP Pulse Ox O2 Del Method O2 Flow Rate 97.8 F 100 20 94/62 100 Room Air 2 05/16/25 19:10 05/16/25 19:10 05/16/25 19:10 05/16/25 19:10 05/16/25 19:10 05/16/25 19:10 05/16/25 15:14 Narrative Exam Physical Exam General: Obese body habitus. Head: Normocephalic, atraumatic. Eyes: Pupils equally round and reactive to light. Anicteric. Mouth/Throat: Moist mucous membranes. Heart: Regular rate and rhythm, no murmurs. No JVD. Lungs: Clear to auscultation with no wheezing or crackles. Non-labored respirations, symmetric chest rise, no use of accessory muscles. Abdomen: Could not be examined as the patient refused any palpation due to severe pain. Neurologic: Alert and oriented x3, no gross neurological deficit, and patient able to move all 4 extremities. Extremities: No edema. Posterior tibial pulses are 2+ bilaterally. 2+ radial pulse bilaterally. No clubbing or cyanosis. No mottling. Skin: No rash. Scratch savage on left lower leg. Results: Labs 05/21/25 15:43 05/21/25 05:25 Labs: Short CBC 05/16/25 Range/Units 12:00 WBC 16.3 H (3.6-11.0) Thou/mm3 Hgb 10.2 L (12.0-16.0) g/dL Hct 33.7 L (36.0-46.0) % Plt Count 602 H (140-440) Thou/mm3 BMP 05/16/25 12:00 Sodium 138 Potassium 4.6 Chloride 105 Carbon Dioxide 15.8 L BUN 33 H Creatinine 2.3 H Glucose 154 H Calcium 8.6 Cardiac Enzymes 05/16/25 Range/Units 12:00 Troponin I < 0.002 (0.0-0.045) ng/mL Liver Function 05/16/25 Range/Units 12:00 Total Bilirubin 0.2 L (0.3-1.2) mg/dL AST 18 (0-34) U/L ALT < 7 L (10-49) U/L Alkaline Phosphatase 457 H (46-116) U/L Albumin 3.2 L (3.4-4.8) gm/dL Urine 05/16/25 Range/Units 15:55 Urine Color Yellow (Lt Yel-Yel) Urine Clarity Turbid A (Clear/Hazy) Urine pH 6.0 (5.0-7.0) Ur Specific [place] 1.021 (1.001-1.035) Urine Protein 1+ A (Neg - Trace) Urine Glucose (UA) Negative (Negative) ABG Interpretation ABG results: 05/16/25 05/16/25 05/16/25 12:11 18:26 19:18 ABG pH 7.41 ABG pCO2 29 L ABG pO2 86 ABG HCO3 18 L ABG O2 Saturation 96 ABG Base Excess -6 L VBG pH 7.26 L 7.36 VBG pCO2 36 32 L VBG pO2 49 46 VBG Base Excess -10 L -7 L Quality Measures Quality Measures none Advance care planning discussed with:: patient Medications Home Medications and Allergies Home Medications ?Medication ?Instructions ?Recorded ?Confirmed ?Type pantoprazole 40 mg tablet,delayed 40 mg PO QDAY 05/17/25 History release (Protonix) acetaminophen 500 mg capsule 500 mg PO BID PRN pain 05/17/25 History aspirin 81 mg tablet 81 mg PO QDAY 05/17/2505/17 History atorvastatin 20 mg tablet 20 mg PO DAILY CHOLESTEROL 1 05/17/25 History cyanocobalamin (vitamin B-12) 100 100 mcg PO QDAY 05/0305/17/25 History mcg tablet (Vitamin B-12) ferrous sulfate 325 mg (65 mg 65 mg PO BID 05/17/25 History iron) tablet (iron) fludrocortisone 0.1 mg tablet 0.1 mg PO DAILY 05/17/25 05/17/25 History hydrocodone 10 mg-acetaminophen 1 tab PO Q6H PRN pain 05/17/25 05/17/25 History 325 mg tablet magnesium glycinate 100 mg (as 400 mg PO BID 05/17/25 05/17/25 History glycinate) tablet (Mag Glycinate) midodrine 5 mg tablet 5 mg PO Q8H 05/17/25 5 History Allergies Allergy/AdvReac Type Severity Reaction Status Date / Time cephalexin Allergy Severe DIARRHEA Verified 03/01/25 13:40 coconut oil Allergy Severe Rash Verified 10/31/24 12:33 Sulfa (Sulfonamide Allergy Verified 04/20/25 10:15 Antibiotics) Visit Medications Acetaminophen (Acetaminophen 325 Mg Tablet) 650 mg PO Q6H PRN PRN Reason: Fever >101.5 Stop: 06/15/25 18:33 Acetaminophen (Acetaminophen 325 Mg Tablet) 650 mg PO Q6H PRN PRN Reason: PAIN SCALE 1-3 (mild Stop: 06/15/25 18:33 Heparin Sodium (Porcine) (Heparin Sod Inj 5000 Unit/Ml Vial) 5,000 unit SC Q8HR JESSICA Stop: 05/30/25 21:59 Norepinephrine/Dextrose (Levophed In D5w 8mg/250ml) 8 mg in 250 mls @ 6.785 mls/hr IV .Q24H PRN; Protocol PRN Reason: PER PROTOCOL Stop: 06/15/25 17:48 Last Titration: 05/16/25 19:11 Dose: 0.05 mcg/kg/min, 6.785 mls/hr Ciprofloxacin/Dextrose (Cipro Ivpb) 400 mg in 200 mls @ 200 mls/hr IV Q12HR JESSICA Stop: 05/23/25 21:59 Metronidazole (Flagyl 500 Mg Iv) 500 mg in 100 mls @ 200 mls/hr IV Q8HR JESSICA Stop: 05/23/25 21:59 Albumin Human (Albuminar-25 Ivpb) 12.5 gm in 50 mls @ 100 mls/hr IV X1 ONE Stop: 05/16/25 19:49 Ondansetron HCl (Ondansetron Inj 2 Mg/Ml Inj 2 Ml) 4 mg IVP Q6H PRN; Protocol PRN Reason: NAUSEA OR VOMITING Stop: 06/15/25 18:33 Pantoprazole Sodium (Pantoprazole Inj 40 Mg Vial) 40 mg IVP QDAY [facility] Stop: 06/16/25 08:59 Pharmacy Consult (Pharmacy Renal Dose Adjustment 1 Ea) 1 each XX PRN PRN PRN Reason: CONSULT Stop: 06/15/25 16:36 Discontinued Medications Hydromorphone HCl (Hydromorphone Inj 2 Mg/Ml Vial) 1 mg IVP X1 ONE Stop: 05/16/25 14:02 Last Admin: 05/16/25 14:10 Dose: 1 mg Lactated Ringer's (Lactated Ringers) 1,000 mls @ 999 mls/hr IV .Q1H1M ONE Stop: 05/16/25 12:49 Last Infusion: 05/16/25 12:41 Dose: Infused Lactated Ringer's (Lactated Ringers) 1,000 mls @ 999 mls/hr IV .Q1H1M ONE Stop: 05/16/25 13:35 Last Infusion: 05/16/25 16:56 Dose: Infused Ciprofloxacin/Dextrose (Cipro Ivpb) 400 mg in 200 mls @ 200 mls/hr IV X1 ONE Stop: 05/16/25 13:51 Last Infusion: 05/16/25 17:08 Dose: Infused Metronidazole (Flagyl 500 Mg Iv) 500 mg in 100 mls @ 100 mls/hr IV X1 ONE Stop: 05/16/25 15:19 Last Infusion: 05/16/25 17:08 Dose: Infused Lactated Ringer's (Lactated Ringers) 500 mls @ 999 mls/hr IV .Q31M ONE Stop: 05/16/25 16:07 Last Infusion: 05/16/25 16:56 Dose: Infused Acetaminophen (Ofirmev Inj) 1,000 mg in 100 mls @ 250 mls/hr IV X1 ONE Stop: 05/16/25 16:28 Last Infusion: 05/16/25 17:08 Dose: Infused Ceftriaxone Sodium 2 gm/ (Sodium Chloride) 50 mls @ 100 mls/hr IV QDAY JESSICA Stop: 05/23/25 16:34 Metronidazole (Flagyl 500 Mg Iv) 500 mg in 100 mls @ 200 mls/hr IV Q8HR JESSICA Stop: 05/23/25 21:59 Norepinephrine/Dextrose (Levophed In D5w 8mg/250ml) 8 mg in 250 mls @ 6.785 mls/hr IV .Q24H PRN; Protocol PRN Reason: PER PROTOCOL Stop: 06/15/25 17:48 Lactated Ringer's (Lactated Ringers) 1,000 mls @ 999 mls/hr IV .Q1H1M ONE Stop: 05/16/25 18:50 Last Infusion: 05/16/25 18:49 Dose: Infused Ciprofloxacin/Dextrose (Cipro Ivpb) 400 mg in 200 mls @ 200 mls/hr IV Q24H JESSICA Stop: 05/24/25 08:59 Piperacillin/Tazobactam/Dextrose (Zosyn) 3.375 gm in 50 mls @ 12.5 mls/hr IV Q8HR JESSICA; Protocol Stop: 05/23/25 22:59 Ondansetron HCl (Ondansetron Inj 2 Mg/Ml Inj 2 Ml) 4 mg IVP X1 ONE; Protocol Stop: 05/16/25 16:44 Last Admin: 05/16/25 16:49 Dose: 4 mg Pantoprazole Sodium (Pantoprazole Inj 40 Mg Vial) 40 mg IVP X1 ONE Stop: 05/16/25 12:22 Last Admin: 05/16/25 12:41 Dose: 40 mg Assessment & Plan Plan 70-year-old female with history of nephrolithiasis (s/p bilateral nephrostomy tubes Sep 2024), endometrial cancer in remission, T2DM, and chronic anemia presenting with severe abdominal pain, vomiting, fever, and chills, found to have acute sigmoid diverticulitis with localized perforation and sepsis requiring ICU admission. Neurology #no active problems Cardiovascular #Septic shock, likely secondary to #Diverticulitis of large intestine with perforation #Urinary tract infection DDx: septic shock (distributive) vs hypovolemia vs cardiogenic shock Likely due to distributive shock from sepsis. Lactate > 2 despite adequate IV fluids (30 mL/kg). No evidence of cardiogenic component at this time. Diagnostic Test: - Met 3/4 SIRS criteria on admission: T 101.1F, RR 31, WBC 16.3. - qSOFA score of 2 (RR 31 and SBP 84). - Confirmed or suspected infection: ruptured diverticulitis. - CT abd/pelvis: diverticulitis of large intestine with perforation. - End organ damage: WARREN due to sepsis: baseline Cr 0.8-1.3. Cr 2.3 on this admission. - Lactic acidosis due to sepsis: lactic acid level of 4.8 on admission. - Troponin < 0.002. - BP 84/58 on admission. Treatment Review (completed) - Fluids: 30 mL/kg given in the ED. Treatment Plan: - Ciprofloxacin 400mg in 200mls IV Q12H (05/16-). - Metronidazole 500mg in 100mls IV Q8H (05/16-). - Trend lactate. - Urine culture pending. - Blood culture pending. - Strict I&O. - Norepinephrine 8mg in 250 mls at 0.05 mcg/kg/min. - Maintain MAP >65. Respiratory #History of COPD Diagnostic Test: - No cardinal symptoms of COPD exacerbation such as increase sputum purulence or volume, or increase dyspnea. - VBG 05/16 12:11 showed pH 7.26, pCO2 36 - VBG 05/16 18:26 showed pH 7.36, pCO2 32 - ABG 05/16 19:18 showed pH 7.41, pCO2 29, pO2 82, HCO3 18 - CXR 05/16: Significant left base pneumonia. Treatment Plan: - Monitor O2 saturation and respiratory effort. - No steroids or bronchodilators unless COPD exacerbation evident. GI, , F/E/N #Acute sigmoid diverticulitis with localized perforation Diagnostic Test: - CT abd/pelvis: acute sigmoid diverticulitis with localized rupture of diverticula and mild pelvic pneumoperitoneum. Treatment Plan: - General surgery consulted, appreciate recs. - Monitor WBC, lactate. - NPO - Ciprofloxacin 400mg in 200mls IV Q12H (05/16-). - Metronidazole 500mg in 100mls IV Q8H (05/16-). - Pain control with acetaminophen. - Ondansetron 4mg IV Q6H PRN for nausea. - Monitor for peritoneal signs or worsening tenderness, may require exploratory laparotomy with sigmoid colectomy and colostomy. #History of endometrial cancer Treatment Plan: - Being followed with Rad/Onc in [place]. Renal #Anion gap metabolic acidosis #Lactic acidosis DDx: uremia vs lactic acidosis Diagnostic Test: - VBG 05/16 at 12:00pm: pH 7.26, pCO2 36, CMP bicarb 15.8. Albumin 3.2. - Albumin corrected anion gap: 19.2. - Expected pCO2 compensation 30-34 using Winter's formula. Actual pCO2 31. Respiratory alkalosis compensation. Tachypnea on exam. Treatment Plan: - Monitor serial lactate levels to ensure downtrend. - Continue to underlying cause- bowel perforation. - Monitor renal function and urine output. - No need for bicarbonate therapy at this time. - Continue IV fluids as needed based on volume status and lactate trend. #Acute kidney injury DDx: hypoperfusion vs sepsis vs obstrutive component from nephrostomy tubes vs anuria. Diagnostic Test: - Baseline Cr: 0.8-1.3. - Cr 2.3 on admission. - CT abd/pelvis: Bilateral nephrostomy ureteral catheter. Treatment Plan: - Daily renal panel to trend Cr. - Avoid nephrotoxins. - Renally dose meds as appropriate. - Strict I&Os, monitor urine output closely. - Monitor for signs of volume overload or uremic symptoms. - Flush nephrostomy tube. #Hematuria Diagnostic Test: - UA: RBC 54. Treatment Plan: - Follow-up outpatient with urology to work-up hematuria. #Obstrutive nephrolithiasis s/p nephrostomy tube Treatment Plan: - Continue with nephrostomy tube. - Monitor urine output Heme #Normocytic anemia DDx: anemia of chronic disease vs iron-deficiency anemia vs reactive. Diagnostic Test: - Hemoglobin 10.2 Treatment Plan: - Type and screen. - Monitor H&H. - Transfusing for Hgb <7 or symptomatic. - Held heparin subcutaneous for DVT PPX, SCD. #Thrombocytosis DDx: reactive from infection vs myeloproliferative vs acute stress. Diagnostic Test: - Plt 602 on admission. Treatment Plan: - Monitor platelets. #Leukocytosis DDx: reactive vs URI vs pneumonia Diagnostic Test: . - WBC: 14.6 --> 16.3 Treatment Plan - Continue to treat UTI. Endo #Noninsulin dependent T2DM Diagnostic Test: - Hemoglobin A1c on 05/12/2025 was 5.2. - Blood glucose 154 on admission. Treatment Plan: - Continue to check blood glucose levels. - Will start insulin if need better glycemic control. ID #Urinary tract infection Diagnostic Test: - Urinalysis: blood 2+, RBC 54, WBC 1069, bacteria 4+, positive leukocyte esterase. - Patient has history of positive UAs. - 10/31/24 urine culture: Klebsiella. Treatment Plan: - Ciprofloxacin 400mg in 200mls IV Q12H (05/16-). - Urine culture pending. Health Maintenance: DVT prophylaxis: SCDs GI prophylaxis: Pantoprazole 40 mg IV daily Diet: NPO Bal: none Lines: left IJ central line Drips: Levophed Vent: none CODE STATUS: FULL CODE Patient discussed with my senior resident Dr. Anguiano and attending, Dr. Coker. Becca Diop DO, PGY 1 Attending Provider Attestation/Addendum Patient seen and examined with the above resident, Becca Diop DO. I agree with the findings, assessment, and plan of care as documented except for any differences below. Patient with septic shock, under resuscitated despite appropriate fluid bolus in ED. CVC placed for vasopressor support while ongoing fluids being given based on clinical status. Antibiotics initiated for intra- abdominal infection. No plan at this time for surgical intervention though andres perforation likely. Monitor lactate serially and UOP with bilateral nephrostomy tubes. Mentation at baseline and patient actively driving her own care with input, no family at bedside. Patient with acute renal failure as well. Multiorgan failure with high risk for further morbidity and mortality warranting close monitoring and care only available in the ICU, may still require intubation in setting of shock. Low threshold to contact surgery overnight in case of deterioration. ABG after resuscitation reassuring with down trending LA and improvement in acid- base disorder. Total critical care time: I personally spent 50 minutes for review of physiologic parameters, directing plan of care, coordination of care with other specialists, and counseling patient at the bedside. This is exclusive of time spent teaching housestaff or performing any separate billable procedures. Critical care servicees required for septic shock, diverticulitis with perforation, and acute renal failure.
--- NOTE | 2025-05-16 19:46 | PC.NURSE ---
1946 REPORT TO GREGG MACIAS AT THIS TIME.
[2025-05-16] MEDS: ALBUMIN HUMAN 25% IVPB 12.5 GM/50 ML BTL IV (20:41)
[2025-05-16] MEDS: Magnesium Sulfate 2 GM Ivpb 2 GM/50 ML BAG IV (20:41)
[2025-05-16] MEDS: HYDROmorphone INJ 2 MG/ML VIAL 0.5 MG IVP (20:52)
[2025-05-16] MEDS: LIDOCAINE 5% 1 PATCH TOP (21:03)
[2025-05-16] MEDS: metroNIDAZOLE/NS 500 MG IVPB 500 MG/100 ML BAG 200 MG IV (21:08)
[2025-05-16 21:33] LABS: Reflex Lactate? Y
[2025-05-16 22:25] LABS: Lactic Acid, 3 HR 2.7 mMol/L (0.4-2.0)
[2025-05-17] VITALS (128 sets, daily range): BP systolic 62–300; BP diastolic 15–300; PULSE 92–145; RESP 5–36; TEMP 36.4–37.4; O2SAT 94–100
[2025-05-17 00:44] LABS: Lactate (Lactic Acid) 3.4 mMol/L (0.4-2.0)
[2025-05-17] MEDS: RINGERS LACTATED 1000 ML 1,000 ML 999 ML IV ×3 (02:00→19:51)
[2025-05-17 02:07] LABS: Base Excess -9 (-3-3); HCO3 16 mEq/L (20-26); Inspired Oxygen, FIO2 21 %; O2 Saturation 97 % (91-98); PCO2 30 mmHg (32.0-48.0); PO2 92 mmHg (83-108); pH, Arterial 7.34 (7.35-7.45)
[2025-05-17 02:09] LABS: Allen Test Performed/OK; Puncture Site Right Radial
[2025-05-17 02:10] LABS: Base Excess, Venous -9 (-3-3); O2 Saturation, Venous 87 % (96-97); PCO2, Venous 37 mmHg (36-56); PO2, Venous 60 mmHg (15-58); pH, Venous 7.28 (7.33-7.66)
[2025-05-17 03:42] LABS: Reflex Lactate? Y
[2025-05-17] MEDS: HYDROmorphone INJ 2 MG/ML VIAL 0.5 MG IVP (03:46)
[2025-05-17] MEDS: ONDANSETRON INJ 2 MG/ML INJ 2 ML 4 MG IVP ×3 (03:47→11:04)
[2025-05-17 04:00] LABS: Lactic Acid, 3 HR 3.5 mMol/L (0.4-2.0)
[2025-05-17 04:12] LABS: Basophils # (Auto) 0.1 Thou/mm3 (0.0-0.2); Basophils % (Auto) 0 % (0-2.5); Eosinophils # (Auto) 0.1 Thou/mm3 (0.0-0.5); Eosinophils % (Auto) 0 % (0-10); Hematocrit 30.4 % (36.0-46.0); Hemoglobin 9.4 g/dL (12.0-16.0); Immature Granulocytes Auto 0.14 Thou/mm3 (0.00-0.00); Lymphocytes # (Auto) 0.8 Thou/mm3 (1.0-4.8); Lymphocytes % (Auto) 5 % (10-50); Mean Corpuscular HGB Conc 30.9 g/dl (31.0-37.0); Mean Corpuscular Hemoglobin 26.3 pg (25.0-35.0); Mean Corpuscular Volume 85 fL (80-100); Monocytes # (Auto) 0.3 Thou/mm3 (0.0-0.8); Monocytes % (Auto) 2 % (0-12); Neutrophils # (Auto) 15.9 Thou/mm3 (1.8-7.7); Neutrophils % (Auto) 92 % (37-80); Nucleated Red Blood Cell # 0.00 Thou/mm3 (0.00-0.00); Nucleated Red Blood Cell % 0 /100 WBC (0); Platelet Count 419 Thou/mm3 (140-440); RDW Standard Deviation 50.9 fL (36.4-46.3); Red Blood Count 3.57 Miln/mm3 (4.00-5.20); White Blood Count 17.3 Thou/mm3 (3.6-11.0)
[2025-05-17 04:19] LABS: INR 1.2 (0.9-1.3); Partial Thromboplastin Time 28.4 Seconds (22.0-36.0); Prothrombin Time 12.8 Seconds (9.0-12.2)
[2025-05-17 05:24] LABS: Alanine Aminotransferase < 7 U/L (10-49); Albumin, Serum 2.6 gm/dL (3.4-4.8); Albumin/Globulin Ratio 1.1 (1.2-2.2); Alkaline Phosphatase 299 U/L (46-116); Anion Gap 15 (7-16); Aspartate Amino Transferase 14 U/L (0-34); BUN/Creatinine Ratio 16 Ratio (12-20); Bilirubin,Total 0.2 mg/dL (0.3-1.2); Blood Urea Nitrogen 35 mg/dL (9-23); Calcium 8.0 mg/dL (8.3-10.6); Calcium (Corrected) 9.1 mg/dL (8.5-10.1); Carbon Dioxide 16.2 mMol/L (20.0-31.0); Chloride 104 mMol/L (98-107); Creatinine (Component) 2.2 mg/dL (0.6-1.3); Estimated Creatinine Clearance 22.2 mL/min (>60); Globulin 2.4 gm/dL (2.3-3.5); Glucose 168 mg/dL (74-106); Magnesium 2.4 mg/dL (1.6-2.6); Osmolality,Calculated 282 (275-295); Phosphorous 4.5 mg/dL (2.4-5.1); Potassium 4.8 mMol/L (3.4-5.1); Sodium 135 mMol/L (136-145); Thyroid Stimulating Hormone 2.03 uIU/mL (0.55-4.78); Total Protein 5.0 gm/dL (5.7-8.2); eGFR 24 See Note
[2025-05-17] MEDS: metroNIDAZOLE/NS 500 MG IVPB 500 MG/100 ML BAG 200 MG IV ×3 (05:27→21:04)
--- NOTE | 2025-05-17 06:41 | PC.NURSE ---
MD ordered tomlinson instertion, pt declined and MD was notified
[2025-05-17] MEDS: Norepinephrine/D5W 8mg/250ml 8 MG/250 ML BAG 25.784 MG IV (07:00)
[2025-05-17] MEDS: RINGERS LACTATED 1000 ML 500 ML 999 ML IV (07:02)
[2025-05-17] MEDS: SCOPOLAMINE 1 MG TDSY TOP (07:05)
--- NOTE | 2025-05-17 07:22 | ESPR_ITS ---
<Statement entered by Tim Anguiano MD - 05/17/25 20:28> Patient seen and examined at bedside. I discussed and supervised with the internal medicine nurse physician who took care of this patient. I personally saw and examined the patient. I agree with most of the assessment and plan. Plan of care discussed with attending Dr. Coker. Tim Anguiano MD PGY-2 Documentation for date of: 05/17/25 Subjective Subjective Interval history: 70-year-old female with a medical history significant for nephrolithiasis (status post bilateral nephrostomy tubes in September 2024), endometrial cancer (in remission, s/p chemo and radiation), non-insulin dependent type 2 diabetes mellitus, anemia, and COPD presents with severe 10/10 abdominal pain and non- bloody vomiting that began one day ago. Patient reports that the abdominal pain is present even with slight movements. The abdominal pain is worse on the right lower quadrant. Patient endorses associated symptoms of fever, chills, and headache. A limited history was obtained from the patient due to significant pain, as she reports that even speaking exacerbates her discomfort. General surgery was consulted. Patient was admitted to the ICU for septic shock. ED Course: -Initial vitals were: BP 84/58, HR 72, RR 31, T 101.1F, O2 sat 100% on oxy mask. -Labs significant for: WBC 16.3, RBC 3.84, Hgb 10.2, Hct 33.7, MCHC 30.3, Plt 602, bicarbonate 15.8, anion gap 17, BUN 33, Cr 2.3, eGFR 22, glucose 154, lactic acid 4.8, ALT < 7, ALP 457, albumin 3.2, procalcitonin 25.58. VBG pH 7.26, pCO2 36, pO2 49, O2 sat 79%. Urinalysis WBC 1069, positive leukocyte esterase. -Imaging included: CT abd/pelvis: bilateral nephrostomy ureteral catheter with no significant hydronephrosis, acute sigmoid diverticulitis with localized rupture of diverticula and mild pelvic pneumoperitoneum. -In the ED, patient was given: LR 2.5L, pantoprazole 40 mg IV x1, Ciprofloxacin 400mg in 200 mls IV x1, hydromorphone 1 mg IV x1, Metronidazole 500 mg IV x1, acetaminophen 1000 mg IV x1, ondansetron 4mg IV x1. Past Medical History: as above Past Surgical History: bilateral nephrostomy tubes in September 2024, appendenctomy and cholecystectomy. Family History: extensive family history of cardiac disease and lung problems. Social History: - Smoking: denies - Alcohol: denies - Illicit drugs: denies - Residence: lives in [place] in a SNF. Current Medications: pending med recs. Allergies: cephalexin - diarrhea, sulfa antibiotics - rash, coconut oil - rash. Interval History: 05/17/2025: Overnight, NICOM was used to assess fluid responsiveness, and it indicated that the patient is 39% fluid responsive. The patient was on levophed at 0.19 mcg/kg/min and received 12.5 grams of albumin in 50 mL, along with 1L of LR, to address her low blood pressure. For abdominal pain management, the patient was given 0.5 mg of Dilaudid x2, IV Tylenol, a lidocaine patch, and a scopolamine patch. Additionally, the patient received 4 mg of Zofran for nausea. According to nursing staff, the patient had a diaper with a moderate amount of urine but no urine output in the nephrostomy bag. The patient refused a Bal catheter and a purewick was placed instead. A bladder scan showed no urine production. The patient has not been producing urine. Nephrology recommended increasing fluid intake and flushing the nephrostomy tubes. Vasopressin was eventually added for her low blood pressures. A right femoral arterial line was placed before patient went to surgery. Patient underwent an exploratory laparotomy, sigmoid colectomy with end descending colostomy and hysterectomy. Findings from the operation: Inflamed and thickened sigmoid with large perforation and feculent peritonitis. Inflamed and necrotic appearing uterus. Very thin anterior abdominal fascia with evidence of multiple mesh placements from prior operations. Exam Vital Signs Temp Pulse Resp BP Pulse Ox O2 Del Method O2 Flow Rate 99.3 F 126 H 28 H 89/62 L 97 Room Air 2 05/17/25 04:00 05/17/25 06:30 05/17/25 06:30 05/17/25 06:30 05/17/25 06:30 05/16/25 19:10 05/16/25 15:14 Narrative Exam Physical Exam General: Obese body habitus. Head: Normocephalic, atraumatic. Eyes: Pupils equally round and reactive to light. Anicteric. Mouth/Throat: Moist mucous membranes. Heart: Regular rate and rhythm, no murmurs. No JVD. Lungs: Clear to auscultation with no wheezing or crackles. Non-labored respirations, symmetric chest rise, no use of accessory muscles. Abdomen: Could not be examined as the patient refused any palpation due to severe pain. Neurologic: Alert and oriented x3, no gross neurological deficit, and patient able to move all 4 extremities. Extremities: No edema. Posterior tibial pulses are 2+ bilaterally. 2+ radial pulse bilaterally. No clubbing or cyanosis. No mottling. Skin: No rash. Scratch savage on left lower leg. Objective Labs 05/21/25 06:22 05/21/25 05:25 Labs: Laboratory Results - last 24 hr 05/16/25 05/16/25 05/16/25 12:00 12:11 12:29 WBC 16.3 H RBC 3.84 L Hgb 10.2 L Hct 33.7 L MCV 88 MCH 26.6 MCHC 30.3 L RDW Std Deviation 52.7 H Plt Count 602 H Neut % (Auto) 88 H Lymph % (Auto) 8 L [place] % (Auto) 3 Eos % (Auto) 0 Baso % (Auto) 0 Neut # (Auto) 14.3 H Lymph # (Auto) 1.3 [place] # (Auto) 0.5 Eos # (Auto) 0.0 Baso # (Auto) 0.1 Immature Gran # (Auto) 0.13 H Absolute Nucleated RBC 0.00 Immature Gran % 1 H Nucleated RBC % 0 PT INR APTT Puncture Site ABG pH ABG pCO2 ABG pO2 ABG HCO3 ABG O2 Saturation ABG Base Excess VBG pH 7.26 L VBG pCO2 36 VBG pO2 49 VBG O2 Sat (Miriam) 79 L VBG Base Excess -10 L FiO2 Sodium 138 Potassium 4.6 Chloride 105 Carbon Dioxide 15.8 L Anion Gap 17 H BUN 33 H Creatinine 2.3 H Estim Creat Clear Calc 21.2 L eGFR 22 L BUN/Creatinine Ratio 14 Glucose 154 H Calculated Osmolality 285 Lactic Acid 4.8 H* Calcium 8.6 Corrected Calcium 9.2 Phosphorus 4.0 Magnesium 1.9 Total Bilirubin 0.2 L AST 18 ALT < 7 L Alkaline Phosphatase 457 H Troponin I < 0.002 Total Protein 6.3 Albumin 3.2 L Globulin 3.1 Albumin/Globulin Ratio 1.0 L Lipase 18 Procalcitonin 25.58 H TSH Ur Collection Type Urine Color Urine Clarity Urine pH Ur Specific [place] Urine Protein Urine Glucose (UA) Urine Ketones Urine Blood Urine Nitrite Urine Bilirubin Urine Urobilinogen (Auto) Ur Leukocyte Esterase Urine RBC Urine WBC Ur Squamous Epith Cells Uric Acid Crystals Urine Bacteria Hyaline Casts Ur Culture Indicated? Influenza A (Rapid) Negative Influenza B (Rapid) Negative Blood Type O Positive Antibody Screen POSITIVE Antibody Identification Anti-E Blood Bank Wristband ID Yes 05/16/25 05/16/25 05/16/25 15:16 15:55 18:26 WBC RBC Hgb Hct MCV MCH MCHC RDW Std Deviation Plt Count Neut % (Auto) Lymph % (Auto) [place] % (Auto) Eos % (Auto) Baso % (Auto) Neut # (Auto) Lymph # (Auto) [place] # (Auto) Eos # (Auto) Baso # (Auto) Immature Gran # (Auto) Absolute Nucleated RBC Immature Gran % Nucleated RBC % PT INR APTT Puncture Site ABG pH ABG pCO2 ABG pO2 ABG HCO3 ABG O2 Saturation ABG Base Excess VBG pH 7.36 VBG pCO2 32 L VBG pO2 46 VBG O2 Sat (Miriam) 81 L VBG Base Excess -7 L FiO2 Sodium Potassium Chloride Carbon Dioxide Anion Gap BUN Creatinine Estim Creat Clear Calc eGFR BUN/Creatinine Ratio Glucose Calculated Osmolality Lactic Acid 3.7 H 3.9 H Calcium Corrected Calcium Phosphorus Magnesium Total Bilirubin AST ALT Alkaline Phosphatase Troponin I Total Protein Albumin Globulin Albumin/Globulin Ratio Lipase Procalcitonin TSH Ur Collection Type Catheter Urine Color Yellow Urine Clarity Turbid A Urine pH 6.0 Ur Specific [place] 1.021 Urine Protein 1+ A Urine Glucose (UA) Negative Urine Ketones Negative Urine Blood 2+ A Urine Nitrite Negative Urine Bilirubin Negative Urine Urobilinogen (Auto) Negative Ur Leukocyte Esterase Positive Urine RBC 54 H Urine WBC 1069 H Ur Squamous Epith Cells < 1 Uric Acid Crystals Rare Urine Bacteria 4+ A Hyaline Casts < 1 Ur Culture Indicated? Yes Influenza A (Rapid) Influenza B (Rapid) Blood Type Antibody Screen Antibody Identification Blood Bank Wristband ID 05/16/25 05/16/25 05/16/25 19:18 21:38 21:38 WBC RBC Hgb Hct MCV MCH MCHC RDW Std Deviation Plt Count Neut % (Auto) Lymph % (Auto) [place] % (Auto) Eos % (Auto) Baso % (Auto) Neut # (Auto) Lymph # (Auto) [place] # (Auto) Eos # (Auto) Baso # (Auto) Immature Gran # (Auto) Absolute Nucleated RBC Immature Gran % Nucleated RBC % PT INR APTT Puncture Site Left Radial ABG pH 7.41 ABG pCO2 29 L ABG pO2 86 ABG HCO3 18 L ABG O2 Saturation 96 ABG Base Excess -6 L VBG pH VBG pCO2 VBG pO2 VBG O2 Sat (Miriam) VBG Base Excess FiO2 21 Sodium Potassium Chloride Carbon Dioxide Anion Gap BUN Creatinine Estim Creat Clear Calc eGFR BUN/Creatinine Ratio Glucose Calculated Osmolality Lactic Acid Cancelled 2.7 H Calcium Corrected Calcium Phosphorus Magnesium Total Bilirubin AST ALT Alkaline Phosphatase Troponin I Total Protein Albumin Globulin Albumin/Globulin Ratio Lipase Procalcitonin TSH Ur Collection Type Urine Color Urine Clarity Urine pH Ur Specific [place] Urine Protein Urine Glucose (UA) Urine Ketones Urine Blood Urine Nitrite Urine Bilirubin Urine Urobilinogen (Auto) Ur Leukocyte Esterase Urine RBC Urine WBC Ur Squamous Epith Cells Uric Acid Crystals Urine Bacteria Hyaline Casts Ur Culture Indicated? Influenza A (Rapid) Influenza B (Rapid) Blood Type Antibody Screen Antibody Identification Blood Bank Wristband ID 05/17/25 05/17/25 05/17/25 00:36 01:51 01:58 WBC RBC Hgb Hct MCV MCH MCHC RDW Std Deviation Plt Count Neut % (Auto) Lymph % (Auto) [place] % (Auto) Eos % (Auto) Baso % (Auto) Neut # (Auto) Lymph # (Auto) [place] # (Auto) Eos # (Auto) Baso # (Auto) Immature Gran # (Auto) Absolute Nucleated RBC Immature Gran % Nucleated RBC % PT INR APTT Puncture Site Right Radial ABG pH 7.34 L ABG pCO2 30 L ABG pO2 92 ABG HCO3 16 L ABG O2 Saturation 97 ABG Base Excess -9 L VBG pH 7.28 L VBG pCO2 37 VBG pO2 60 H VBG O2 Sat (Miriam) 87 L VBG Base Excess -9 L FiO2 21 Sodium Potassium Chloride Carbon Dioxide Anion Gap BUN Creatinine Estim Creat Clear Calc eGFR BUN/Creatinine Ratio Glucose Calculated Osmolality Lactic Acid 3.4 H Calcium Corrected Calcium Phosphorus Magnesium Total Bilirubin AST ALT Alkaline Phosphatase Troponin I Total Protein Albumin Globulin Albumin/Globulin Ratio Lipase Procalcitonin TSH Ur Collection Type Urine Color Urine Clarity Urine pH Ur Specific [place] Urine Protein Urine Glucose (UA) Urine Ketones Urine Blood Urine Nitrite Urine Bilirubin Urine Urobilinogen (Auto) Ur Leukocyte Esterase Urine RBC Urine WBC Ur Squamous Epith Cells Uric Acid Crystals Urine Bacteria Hyaline Casts Ur Culture Indicated? Influenza A (Rapid) Influenza B (Rapid) Blood Type Antibody Screen Antibody Identification Blood Bank Wristband ID 05/17/25 03:45 WBC 17.3 H RBC 3.57 L Hgb 9.4 L Hct 30.4 L MCV 85 MCH 26.3 MCHC 30.9 L RDW Std Deviation 50.9 H Plt Count 419 D Neut % (Auto) 92 H Lymph % (Auto) 5 L [place] % (Auto) 2 Eos % (Auto) 0 Baso % (Auto) 0 Neut # (Auto) 15.9 H Lymph # (Auto) 0.8 L [place] # (Auto) 0.3 Eos # (Auto) 0.1 Baso # (Auto) 0.1 Immature Gran # (Auto) 0.14 H Absolute Nucleated RBC 0.00 Immature Gran % 1 H Nucleated RBC % 0 PT 12.8 H INR 1.2 APTT 28.4 Puncture Site ABG pH ABG pCO2 ABG pO2 ABG HCO3 ABG O2 Saturation ABG Base Excess VBG pH VBG pCO2 VBG pO2 VBG O2 Sat (Miriam) VBG Base Excess FiO2 Sodium 135 L Potassium 4.8 Chloride 104 Carbon Dioxide 16.2 L Anion Gap 15 BUN 35 H Creatinine 2.2 H Estim Creat Clear Calc 22.2 L eGFR 24 L BUN/Creatinine Ratio 16 Glucose 168 H Calculated Osmolality 282 Lactic Acid 3.5 H Calcium 8.0 L Corrected Calcium 9.1 Phosphorus 4.5 Magnesium 2.4 Total Bilirubin 0.2 L AST 14 ALT < 7 L Alkaline Phosphatase 299 H D Troponin I Total Protein 5.0 L Albumin 2.6 L D Globulin 2.4 Albumin/Globulin Ratio 1.1 L Lipase Procalcitonin TSH 2.03 Ur Collection Type Urine Color Urine Clarity Urine pH Ur Specific [place] Urine Protein Urine Glucose (UA) Urine Ketones Urine Blood Urine Nitrite Urine Bilirubin Urine Urobilinogen (Auto) Ur Leukocyte Esterase Urine RBC Urine WBC Ur Squamous Epith Cells Uric Acid Crystals Urine Bacteria Hyaline Casts Ur Culture Indicated? Influenza A (Rapid) Influenza B (Rapid) Blood Type Antibody Screen Antibody Identification Blood Bank Wristband ID ABG Interpretation ABG results: 05/16/25 05/16/25 05/16/25 12:11 18:26 19:18 ABG pH 7.41 ABG pCO2 29 L ABG pO2 86 ABG HCO3 18 L ABG O2 Saturation 96 ABG Base Excess -6 L VBG pH 7.26 L 7.36 VBG pCO2 36 32 L VBG pO2 49 46 VBG Base Excess -10 L -7 L 05/17/25 05/17/25 01:51 01:58 ABG pH 7.34 L ABG pCO2 30 L ABG pO2 92 ABG HCO3 16 L ABG O2 Saturation 97 ABG Base Excess -9 L VBG pH 7.28 L VBG pCO2 37 VBG pO2 60 H VBG Base Excess -9 L Quality Measures Quality Measures none Advance care planning discussed with:: patient Assessment & Plan Assessment Current Active Medications: Generic Name Dose Route Start Last Admin Trade Name Freq PRN Reason Stop Dose Admin Norepinephrine/Dextrose 8 mg in 250 mls @ 6.785 mls/hr 05/16/25 17:49 05/17/25 06:00 Levophed In D5w 8mg/250ml IV 06/15/25 17:48 0.19 mcg/kg/min .Q24H PRN 25.784 mls/hr PER PROTOCOL Titration Protocol 0.05 MCG/KG/MIN Ciprofloxacin/Dextrose 400 mg in 200 mls @ 200 mls/hr 05/16/25 22:00 05/17/25 04:00 Cipro Ivpb IV 05/23/25 21:59 Infused Q12HR JESSICA Infusion Metronidazole 500 mg in 100 mls @ 200 mls/hr 05/16/25 22:00 05/17/25 07:06 Flagyl 500 Mg Iv IV 05/23/25 21:59 Infused Q8HR JESSICA Infusion Acetaminophen 1,000 mg in 100 mls @ 250 mls/hr 05/16/25 20:37 05/17/25 04:00 Ofirmev Inj IV 05/19/25 20:36 Infused Q6H PRN Infusion fever >99.9 Vasopressin/Sodium Chloride 20 unit in 100 mls @ 9 mls/hr 05/17/25 00:58 Vasostrict/Ns Ivpb IV 06/16/25 00:57 .Q11H7M PRN PER PROTOCOL Protocol 0.03 UNIT/MIN Ondansetron HCl 4 mg 05/16/25 18:34 05/17/25 03:47 Ondansetron Inj 2 Mg/Ml Inj 2 Ml IVP 06/15/25 18:33 4 mg Q6H PRN Administration NAUSEA OR VOMITING Protocol Pantoprazole Sodium 40 mg 05/17/25 09:00 Pantoprazole Inj 40 Mg Vial IVP 06/16/25 08:59 QDAY COUNT INCLUDES THE [facility] Pharmacy Consult 1 each 05/16/25 16:37 Pharmacy Renal Dose Adjustment 1 Ea XX 06/15/25 16:36 PRN PRN CONSULT Plan 70-year-old female with history of nephrolithiasis (s/p bilateral nephrostomy tubes Sep 2024), endometrial cancer in remission, T2DM, and chronic anemia presenting with severe abdominal pain, vomiting, fever, and chills, found to have acute sigmoid diverticulitis with localized perforation and sepsis requiring ICU admission. Neurology #Chemical sedation Treatment Plan: - Propofol and Fentanyl with a RASS score goal of -4. Cardiovascular #Septic shock, likely secondary to #Perforated sigmoid diverticulitis with feculent peritonitis DDx: septic shock (distributive) vs hypovolemia vs cardiogenic shock. Likely due to distributive shock from sepsis. Lactate > 2 despite adequate IV fluids (30 mL/kg). No evidence of cardiogenic component at this time. Diagnostic Test: - Met 3/4 SIRS criteria on admission: T 101.1F, RR 31, WBC 16.3. - qSOFA score of 2 (RR 31 and SBP 84). - Confirmed or suspected infection: ruptured diverticulitis. - CT abd/pelvis: diverticulitis of large intestine with perforation. - End organ damage: WARREN due to sepsis: baseline Cr 0.8-1.3. Cr 2.3 on this admission. - Lactic acidosis due to sepsis: lactic acid level of 4.8 on admission. - Troponin < 0.002. - BP 84/58 on admission. Treatment Review (completed) - Fluids: 30 mL/kg given in the ED. - S/p exploratory laparotomy, sigmoid colectomy with end descending colostomy and hysterectomy on 05/17. Treatment Plan: - Ciprofloxacin 400mg in 200mls IV Q12H (05/16-). - Metronidazole 500mg in 100mls IV Q8H (05/16-). - Trend lactate. - Urine culture pending. - Blood culture pending. - Strict I&O. - Continue Norepinephrine 8mg in 250 mls at 0.05 mcg/kg/min. - Started Vasopressin 20 units in 100 mls at 0.03 units/min. - Maintain MAP >65. Respiratory #History of COPD Diagnostic Test: - No cardinal symptoms of COPD exacerbation such as increase sputum purulence or volume, or increase dyspnea. - VBG 05/16 12:11 showed pH 7.26, pCO2 36 - VBG 05/16 18:26 showed pH 7.36, pCO2 32 - ABG 05/16 19:18 showed pH 7.41, pCO2 29, pO2 82, HCO3 18 - CXR 05/16: Significant left base pneumonia. Treatment Plan: - Monitor O2 saturation and respiratory effort. - No steroids or bronchodilators unless COPD exacerbation evident. GI, , F/E/N #Perforated sigmoid diverticulitis with feculent peritonitis S/p exploratory laparotomy, sigmoid colectomy with end descending colostomy and hysterectomy on 05/17. Diagnostic Test: - CT abd/pelvis: acute sigmoid diverticulitis with localized rupture of diverticula and mild pelvic pneumoperitoneum. - Surgery findings: inflamed and thickened sigmoid with large perforation and feculent peritonitis. Inflamed and necrotic appearing uterus. Very thin anterior abdominal fascia with evidence of multiple mesh placements from prior operations. Treatment Plan: - General surgery following. - Monitor WBC, lactate. - Ciprofloxacin 400mg in 200mls IV Q12H (05/16-). - Metronidazole 500mg in 100mls IV Q8H (05/16-). - Ondansetron 4mg IV Q6H PRN for nausea. - Consider starting trickle feeds. #History of endometrial cancer Treatment Plan: - Being followed with Rad/Onc in [place]. Renal #Anion gap metabolic acidosis with compensated respiratory alkalosis #Lactic acidosis DDx: uremia vs lactic acidosis Diagnostic Test: - VBG 05/16 at 12:00pm: pH 7.26, pCO2 36, CMP bicarb 15.8. Albumin 3.2. - Albumin corrected anion gap: 19.2. - Expected pCO2 compensation 30-34 using winter's formula. Actual pCO2 31. Respiratory alkalosis compensation. Tachypnea on exam. Treatment Plan: - Monitor serial lactate levels to ensure downtrend. - Monitor renal function and urine output. - No need for bicarbonate therapy at this time. - Continue IV fluids as needed based on volume status and lactate trend. #Post-surgery: anion gap metabolic acidosis with secondary respiratory acidosis, with additional non-gap metabolic acidosis. Diagnostic Tests: - ABG: pH 7.17, pCO2 32, HCO3 12 - CMP: sodium 137, chloride 109, bicarb 13.4. Albumin 2.6. - Albumin corrected anion gap: 18.1. - Using winter's formula, excepted pCO2 compensation 26.0-30.0. - Delta delta is 0.66, which is <1, suggesting gap acidosis. Treatment Plan: - Anion gap metabolic acidosis likely due to lactic acidosis (5.1 --> 5.6). Consider ordering urine electrolytes to determine what is the cause of the additional non-gap metabolic acidosis. - Monitor serial lactate levels to ensure downtrend. #Acute kidney injury #Anuria DDx: hypoperfusion vs sepsis vs obstrutive component from nephrostomy tubes vs anuria. Patient has not had any urine output to nephrostomy bag. Diagnostic Test: - Baseline Cr: 0.8-1.3. - Cr 2.3 on admission. - CT abd/pelvis: Bilateral nephrostomy ureteral catheter. Treatment Plan: - Daily renal panel to trend Cr. - Avoid nephrotoxins. - Renally dose meds as appropriate. - Strict I&Os, monitor urine output closely. - Monitor for signs of volume overload or uremic symptoms. - Per nephrology recs - flush nephrostomy tube and continue IV fluids to help with urine output. #Hematuria Diagnostic Test: - UA: RBC 54. Treatment Plan: - Follow-up outpatient with urology to work-up hematuria. #Obstrutive nephrolithiasis s/p nephrostomy tube Treatment Plan: - Continue with nephrostomy tube. - Monitor urine output. Heme #Normocytic anemia DDx: anemia of chronic disease vs iron-deficiency anemia vs reactive. Diagnostic Test: - Hemoglobin 10.2 --> 9.4. Treatment Review (completed). - 2 units of pRBCs were transfused after surgery on 05/17. Treatment Plan: - Type and screen. - Monitor H&H. - Transfusing for Hgb <7 or symptomatic. - Held heparin subcutaneous for DVT PPX, SCD. Confirm with general surgery before restarting heparin. #Thrombocytosis (resolved) DDx: reactive from infection vs myeloproliferative vs acute stress. Diagnostic Test: - Plt 602 on admission. - Plt 419 on 05/17. Treatment Plan: - Monitor platelets. #Leukocytosis DDx: reactive vs URI vs pneumonia Diagnostic Test: . - WBC: 14.6 --> 16.3 --> 17.3. Treatment Plan - Continue to treat UTI with ciprofloxacin. Endo #Noninsulin dependent T2DM Diagnostic Test: - Hemoglobin A1c on 05/12/2025 was 5.2. - Blood glucose 154 on admission. Treatment Plan: - Continue to check blood glucose levels. - Will start insulin if need better glycemic control. ID #Urinary tract infection Diagnostic Test: - Urinalysis: blood 2+, RBC 54, WBC 1069, bacteria 4+, positive leukocyte esterase. - Patient has history of positive UAs. - 10/31/24 urine culture: Klebsiella. Treatment Plan: - Ciprofloxacin 400mg in 200mls IV Q12H (05/16-). - Urine culture pending. Health Maintenance: DVT prophylaxis: SCDs GI prophylaxis: Pantoprazole 40 mg IV daily Diet: NPO Bal: none Lines: left IJ central line Drips: Levophed , Vasopressin Vent: AC CODE STATUS: FULL CODE Patient discussed with my senior resident Dr. Anguiano and attending, Dr. Coker. Becca Diop DO, PGY 1 Attending Provider Attestation/Addendum Patient seen and examined with above resident, Becca Diop DO. I agree with the findings, assessment, and plan of care as document except for any differences below. Patient admitted with septic shock secondary to diverticulitis with perforation. Patient with complicated previous surgical history warranting close monitoring and active resuscitation prior to transfer to the OR for definitive source control. Patient tolerated antibiotics with escalating requirements for vasopressors overnight. Appreciate surgical input with eventual exploratory laparotomy. Patient will return from the OR on mechanical ventilation and plan for weaning after stabilization of the underlying infection. Patient's renal function has deteriorated overnight despite appropriate volume resuscitation, nephrology now involved especially for hemodialysis if renal function continues to worsen. Follow-up culture data to tailor antibiotics. Patient will be kept on PPI For stress ulcer prophylaxis. Hold off on chemical prophylaxis for VTE, SCDs to be in place. Patient remains n.p.o. with no plans for TPN until vasopressor requirements come down to single digits. Total critical care time: I personally spent 80 minutes for review of physiologic parameters, directing plan of care throughout the day, current care with other subspecialists/specialties, and counseling patient at bedside. This is exclusive of time spent teaching on staff performing separate billable procedures. Patient remains at significant risk for further morbidity and mortality warranting close monitoring and care when available in the ICU. Critical care services required for septic shock secondary, perforated viscus status post right partial colectomy and hysterectomy,and acute renal failure.
[2025-05-17] MEDS: VASOPRESSIN IN NS IVPB 20 UNIT/100 ML BAG 9 UNIT IV ×2 (08:37→17:32)
[2025-05-17] MEDS: CIPROFLOXACIN/D5w 400 MG IVPB 400 MG/200 ML BAG 200 MG IV (09:37)
[2025-05-17] MEDS: SODIUM CHLORIDE 0.9% 500 ML 500 ML 999 ML IV (09:56)
[2025-05-17] MEDS: HYDROmorphone INJ 2 MG/ML VIAL 1 MG IVP (10:19)
--- NOTE | 2025-05-17 10:41 | PD.SURPROG ---
Documentation for date of: 05/17/25 Subjective Subjective Narrative: Patient was seen and examined. Her clinical course has deteriorated with worsening abdominal pain, low urine output and high dose pressor requirement to maintain blood pressure Exam Vital Signs Temp Pulse Resp BP Pulse Ox O2 Del Method O2 Flow Rate 99.3 F 121 H 28 H 113/61 97 Room Air 2 05/17/25 04:00 05/17/25 07:00 05/17/25 06:30 05/17/25 07:00 05/17/25 06:30 05/16/25 19:10 05/16/25 15:14 Routine Abdominal Exam Comments: Abdomen has diffuse tenderness and peritonitis Assessment & Plan Plan Patient will be taken to the operating room emergently for exploratory laparotomy, bowel resection and colostomy. Risks include but not limited to infection, bleeding, injury to bowel, spleen, surround neurovascular structures, abdominal sepsis and or abdominal abscess, malfunctioning and or necrosis of colostomy, pneumonia, blood clot, heart attack, stroke and discussed with the patient and her son Tim via telephone conversation. Benefits alternatives explained to them, all their questions answered, they agreed and consented to proceed with the operation.
[2025-05-17] MEDS: FAMOTIDINE INJ 10 MG/ML VIAL 2 ML 20 MG IVP (11:04)
--- NOTE | 2025-05-17 12:18 | PD.RESPROC ---
PROCEDURES: Procedure Date / Time 05/17/25 1218 Procedure Narrative Procedure Narrative: Attending Attestation: I was present for entire procedure. No immediate complications. Patient tolerated procedure well. Minimal blood loss. Follow up chest film shows no post procedure PTX and catheter tip in adequate position. Arterial Line Indication(s): inability to monitor non-invasive BP Time out done, and the following verified: correct patient, side and site, procedure, patient position and implants and/or equipment Size (Gauge): 20 Technique used: guide wire technique Post-Procedure: line sutured into place and dry sterile dressing placed Patient tolerated procedure: well and no complications EBL(ml): 10 Complications: none Site: right and femoral Procedure comment: ~Right Femoral Arterial Line Placement: A time out was performed. My hands were washed immediately prior to the procedure. Resident Physician, Dr Diop PGY-1 was also present during the proceedure.I wore a surgical cap, mask with protective eye-wear, sterile gown and sterile gloves throughout the procedure. The R inguinal region was prepped using chlorhexidine scrub and draped in sterile fashion using a three quarter sheet drape and sterile towels. The Right femoral pulse was identified. Anesthesia was achieved using 1% lidocaine. Palpating the femoral pulse throughout the procedure, the introducer needle was inserted into the Rt femoral artery. Arterial blood was withdrawn. The syringe was removed and a guidewire was advanced through the needle into the Rt femoral artery. The needle was exchanged over the wire for an arterial catheter. The wire was removed and the catheter was secured to the skin using a suture. The patient tolerated the procedure without any hemodynamic compromise. At time of procedure completion, the catheter was connected to the director cardiac and calibrated. Appropriate waveform and blood pressure tracing was observed. Estimated blood loss is <10 cc. -- Proceedure was performed under supervision of ICU intencivist,Dr Sheela Manning MD,PGY3
[2025-05-17 12:46] LABS: Base Excess -15 (-3-3); HCO3 12 mEq/L (20-26); Inspired Oxygen, FIO2 21 %; O2 Saturation 99 % (91-98); PCO2 30 mmHg (32.0-48.0); PO2 181 mmHg (83-108); pH, Arterial 7.21 (7.35-7.45)
[2025-05-17 12:48] LABS: Allen Test Not Performed; Puncture Site Site Not Noted
[2025-05-17 13:04] LABS: Anion Gap 15 (7-16); BUN/Creatinine Ratio 16 Ratio (12-20); Blood Urea Nitrogen 37 mg/dL (9-23); Calcium 8.0 mg/dL (8.3-10.6); Chloride 109 mMol/L (98-107); Creatinine (Component) 2.3 mg/dL (0.6-1.3); Estimated Creatinine Clearance 21.4 mL/min (>60); Glucose 175 mg/dL (74-106); Osmolality,Calculated 286 (275-295); Potassium 4.8 mMol/L (3.4-5.1); Sodium 137 mMol/L (136-145); eGFR 22 See Note
[2025-05-17 13:12] LABS: Carbon Dioxide 13.4 mMol/L (20.0-31.0)
--- NOTE | 2025-05-17 13:45 | EKG_ITS ---
[facility] Test Date: 2025-05-17 Pat Name: SUSAN THOMAS Department: Room: S257-A Gender: Female [employer]: [place] : 1955 Requested By: Tim Mars Order Number: [id number] Reading MD: Tim Mars Measurements Intervals [place] Rate: 134 P: LA: QRS: -44 QRSD: 94 T: 63 QT: 331 QTc: 495 Interpretive Statements ATRIAL FLUTTER/TACHYCARDIA WITH RAPID VENTRICULAR RESPONSE LOW QRS VOLTAGE ANTERIOR MYOCARDIAL INFARCTION , PROBABLY OLD INFERIOR MYOCARDIAL INFARCTION , PROBABLY OLD Compared to ECG 05/16/2025 12:02:50 Low QRS voltage now present Sinus tachycardia no longer present Myocardial infarct finding still present /store/S0/[id number]/ecg/[id number].pdf
--- NOTE | 2025-05-17 13:45 | ESOP_ITS ---
Date of Procedure 05/17/25 Pre Op Diagnosis Perforated sigmoid diverticulitis Post Op Diagnosis Perforated sigmoid diverticulitis with feculent peritonitis Procedure Exploratory laparotomy, sigmoid colectomy with end descending colostomy Hysterectomy Findings Inflamed and thickened sigmoid with large perforation and feculent peritonitis. Inflamed and necrotic appearing uterus. Very thin anterior abdominal fascia with evidence of multiple mesh placements from prior operations Anesthesia GETA and local Pathology / specimen Other (Sigmoid colon, uterus, pieces of old mesh) Estimated Blood Loss 100 Condition Critical Disposition ICU Surgeon Sheela Fuentes MD Surgical Staff Operation Date: 05/17/25 11:15 Case Staff Anesthesiologist: Fred Acuna RNoccupational hygienist: Paz Arana
[2025-05-17] MEDS: MIDAZOLAM/NS 100 MG IVPB 100 MG/100 ML BAG IV (14:00)
[2025-05-17] MEDS: fentaNYL 2,500 MCG/250 ML BAG 2,500 MCG/250 ML BAG IV (14:00)
--- NOTE | 2025-05-17 14:10 | XR_ITS ---
EXAMINATION: AP chest single view TECHNIQUE: AP portable semiupright chest single view Date and time: 415, 2024, 1414 hours INDICATIONS: Hypoxic respiratory failure post intubation today FINDINGS: Significant left base pneumonia Left internal jugular central line tip SVC satisfactory position Tracheal tube tip 3.7 cm above alvaro Right Port-A-Cath tip satisfactory position Orogastric tube is coiled in the stomach IMPRESSION: Endotracheal tube 3.7 cm above alvaro Prominent left base pneumonia Consider retracting the orogastric tube 6 cm
[2025-05-17] MEDS: PROPOFOL 1,000 MG IVPB 1,000 MG/100 ML VIAL 2.214 MG IV (14:20)
[2025-05-17 15:27] LABS: Base Excess -16 (-3-3); HCO3 12 mEq/L (20-26); Inspired Oxygen, FIO2 100 %; O2 Saturation 100 % (91-98); PCO2 32 mmHg (32.0-48.0); PO2 343 mmHg (83-108)
[2025-05-17 15:29] LABS: Allen Test Not Performed; Puncture Site Arterial Line; pH, Arterial 7.17 (7.35-7.45)
[2025-05-17 17:23] LABS: Lactate (Lactic Acid) 5.1 mMol/L (0.4-2.0)
[2025-05-17] MEDS: Norepinephrine/D5W 8mg/250ml 8 MG/250 ML BAG 21.713 MG IV (17:35)
[2025-05-17 20:17] LABS: Reflex Lactate? Y
[2025-05-17 21:15] LABS: Lactic Acid, 3 HR 5.6 mMol/L (0.4-2.0)
--- NOTE | 2025-05-17 22:16 | PD.RESPROC ---
PROCEDURES: Procedure Date / Time 05/17/25 8666 Procedural Time Out Time out performed: 2100 Arterial Line Indication(s): frequent arterial line sampling, shock and inability to monitor non-invasive BP Informed consent obtained: procedure done urgently Time out done, and the following verified: correct patient, side and site, procedure, patient position and implants and/or equipment Size (Gauge): 20 Technique used: guide wire technique Post-Procedure: line sutured into place and dry sterile dressing placed Patient tolerated procedure: well and no complications EBL(ml): 5 Complications: none Site: left and femoral Procedure comment: A time out was performed. My hands were washed immediately prior to the procedure. I wore a surgical cap, mask, sterile gown and sterile gloves throughout the procedure. The left groin was prepped using chlorhexidine scrub and draped in sterile fashion. The femoral pulse was identified and the groin was positioned in the usual fashion. Using US and the femoral Arterial Line Kit, a needle was inserted into the left femoral artery. Arterial blood was seen to pulsate in the flash chamber. The external guidewire was advanced easily into the left femoral artery. The catheter was then advanced over the wire and the needle and wire were withdrawn. The catheter was sutured in place. A sterile opsite was placed over the catheter at the insertion site. The patient tolerated the procedure without any hemodynamic compromise. At the time of procedure completion, the catheter was connected to the office assistance and calibrated. Appropriate waveform and blood pressure tracing was observed. Procedure was performed under the supervision of my attending Dr. Veloz. Rashid Gentile MD PGY-2
[2025-05-17 22:19] LABS: Albumin, Serum 1.9 gm/dL (3.4-4.8); Anion Gap 16 (7-16); BUN/Creatinine Ratio 12 Ratio (12-20); Blood Urea Nitrogen 27 mg/dL (9-23); Calcium 7.3 mg/dL (8.3-10.6); Calcium (Corrected) 9.0 mg/dL (8.5-10.1); Chloride 110 mMol/L (98-107); Creatinine (Component) 2.3 mg/dL (0.6-1.3); Estimated Creatinine Clearance 21.4 mL/min (>60); Glucose 150 mg/dL (74-106); Osmolality,Calculated 281 (275-295); Phosphorous 5.5 mg/dL (2.4-5.1); Potassium 5.0 mMol/L (3.4-5.1); Sodium 137 mMol/L (136-145); eGFR 22 See Note
[2025-05-17 22:20] LABS: Carbon Dioxide 11.5 mMol/L (20.0-31.0)
[2025-05-17 23:06] LABS: Base Excess -14 (-3-3); HCO3 12 mEq/L (20-26); Inspired Oxygen, FIO2 65 %; O2 Saturation 100 % (91-98); PCO2 26 mmHg (32.0-48.0); PO2 298 mmHg (83-108); pH, Arterial 7.26 (7.35-7.45)
[2025-05-17] MEDS: ALBUMIN HUMAN-KJDA 25% IVPB 25 GM/100 ML BTL IV (23:06)
[2025-05-17 23:07] LABS: Allen Test Not Performed; Puncture Site Arterial Line
--- NOTE | 2025-05-17 23:13 | PC.RT ---
fio2 titrated to 50% per abg results RT catracho on lunch at this time.
--- NOTE | 2025-05-17 23:19 | PC.RT ---
per DR. Moncada titrate RR to 18 per abg results made aware of fio2 titration to 50%.
[2025-05-18] VITALS (131 sets, daily range): BP systolic 76–300; BP diastolic 33–249; PULSE 59–116; RESP 18–24; TEMP 36.1–37.1; O2SAT 97–100; BMI 31.6
--- NOTE | 2025-05-18 01:42 | PC.RT ---
per DR. Moncada increased rate to 22 no new orders at this time.
[2025-05-18] MEDS: PROPOFOL 1,000 MG IVPB 1,000 MG/100 ML VIAL 11.07 MG IV (01:45)
[2025-05-18] MEDS: Norepinephrine/D5W 8mg/250ml 8 MG/250 ML BAG 35.283 MG IV ×2 (01:46→20:00)
[2025-05-18 02:04] LABS: Lactate (Lactic Acid) 4.2 mMol/L (0.4-2.0)
[2025-05-18 04:15] LABS: Base Excess -13 (-3-3); HCO3 13 mEq/L (20-26); Inspired Oxygen, FIO2 50 %; O2 Saturation 100 % (91-98); PCO2 32 mmHg (32.0-48.0); PO2 208 mmHg (83-108); pH, Arterial 7.23 (7.35-7.45)
[2025-05-18 04:18] LABS: Allen Test Not Performed; Puncture Site Arterial Line
--- NOTE | 2025-05-18 04:32 | PC.RT ---
DR. pederson made aware of abg results fio2 titrated to 35% per DR. pederson no other changes at this time.
[2025-05-18] MEDS: VASOPRESSIN IN NS IVPB 20 UNIT/100 ML BAG 9 UNIT IV ×2 (04:53→16:00)
[2025-05-18] MEDS: fentaNYL 2,500 MCG/250 ML BAG 2,500 MCG/250 ML BAG 17.5 MCG IV (04:54)
[2025-05-18] MEDS: metroNIDAZOLE/NS 500 MG IVPB 500 MG/100 ML BAG 200 MG IV ×3 (05:00→21:00)
[2025-05-18 05:01] LABS: Reflex Lactate? Y
[2025-05-18 05:02] LABS: Basophils # (Auto) 0.2 Thou/mm3 (0.0-0.2); Basophils % (Auto) 1 % (0-2.5); Eosinophils # (Auto) 0.0 Thou/mm3 (0.0-0.5); Eosinophils % (Auto) 0 % (0-10); Hematocrit 31.6 % (36.0-46.0); Hemoglobin 10.4 g/dL (12.0-16.0); Immature Granulocytes Auto 0.39 Thou/mm3 (0.00-0.00); Lymphocytes # (Auto) 0.5 Thou/mm3 (1.0-4.8); Lymphocytes % (Auto) 3 % (10-50); Mean Corpuscular HGB Conc 32.9 g/dl (31.0-37.0); Mean Corpuscular Hemoglobin 28.7 pg (25.0-35.0); Mean Corpuscular Volume 87 fL (80-100); Monocytes # (Auto) 0.3 Thou/mm3 (0.0-0.8); Monocytes % (Auto) 2 % (0-12); Neutrophils # (Auto) 17.2 Thou/mm3 (1.8-7.7); Neutrophils % (Auto) 93 % (37-80); Nucleated Red Blood Cell # 0.00 Thou/mm3 (0.00-0.00); Nucleated Red Blood Cell % 0 /100 WBC (0); Platelet Count 106 Thou/mm3 (140-440); RDW Standard Deviation 52.7 fL (36.4-46.3); Red Blood Count 3.62 Miln/mm3 (4.00-5.20); White Blood Count 18.6 Thou/mm3 (3.6-11.0)
[2025-05-18 05:39] LABS: Lactic Acid, 3 HR 3.6 mMol/L (0.4-2.0)
[2025-05-18 05:40] LABS: Alanine Aminotransferase < 7 U/L (10-49); Albumin, Serum 2.7 gm/dL (3.4-4.8); Albumin/Globulin Ratio 1.5 (1.2-2.2); Alkaline Phosphatase 176 U/L (46-116); Anion Gap 15 (7-16); Aspartate Amino Transferase 19 U/L (0-34); BUN/Creatinine Ratio 16 Ratio (12-20); Bilirubin,Total 0.5 mg/dL (0.3-1.2); Blood Urea Nitrogen 40 mg/dL (9-23); Calcium 7.8 mg/dL (8.3-10.6); Calcium (Corrected) 8.8 mg/dL (8.5-10.1); Chloride 108 mMol/L (98-107); Creatinine (Component) 2.5 mg/dL (0.6-1.3); Estimated Creatinine Clearance 19.7 mL/min (>60); Globulin 1.8 gm/dL (2.3-3.5); Glucose 139 mg/dL (74-106); Magnesium 2.1 mg/dL (1.6-2.6); Osmolality,Calculated 283 (275-295); Phosphorous 6.0 mg/dL (2.4-5.1); Potassium 5.4 mMol/L (3.4-5.1); Sodium 136 mMol/L (136-145); Total Protein 4.5 gm/dL (5.7-8.2); eGFR 20 See Note
[2025-05-18 05:47] LABS: Carbon Dioxide 13.4 mMol/L (20.0-31.0)
[2025-05-18] MEDS: INSULIN HUM REGULAR 1 UNIT/0.01 ML (PER UNIT) 5 UNIT IV (07:11)
[2025-05-18] MEDS: DEXTROSE 50%-WATER INJ 50 ML SYRINGE IVP (07:24)
[2025-05-18 07:40] LABS: Lactate (Lactic Acid) 3.0 mMol/L (0.4-2.0)
[2025-05-18] MEDS: CIPROFLOXACIN/D5w 400 MG IVPB 400 MG/200 ML BAG 200 MG IV (08:05)
[2025-05-18] MEDS: ALBUMIN HUMAN-KJDA 25% IVPB 25 GM/100 ML BTL IV (08:05)
[2025-05-18] MEDS: Norepinephrine/D5W 8mg/250ml 8 MG/250 ML BAG 43.426 MG IV (08:27)
--- NOTE | 2025-05-18 10:13 | XR_ITS ---
EXAMINATION: AP chest single view TECHNIQUE: AP portable supine chest single view Date and time: May 18, 2025, 10:30 a.m., comparison May 17, 2025 INDICATIONS: Postdialysis catheter placement today FINDINGS: Right internal jugular dialysis catheter tips SVC satisfactory position Left internal jugular central line tip junction innominate vein and superior vena cava Endotracheal tube tip 4 cm above alvaro Orogastric tube tip body the stomach Significant pneumonia left base IMPRESSION: Interval right internal jugular temporary dialysis catheter, tip in satisfactory position No pneumothorax
[2025-05-18 10:40] LABS: Reflex Lactate? Y
[2025-05-18 11:01] LABS: Lactic Acid, 3 HR 3.2 mMol/L (0.4-2.0)
--- NOTE | 2025-05-18 11:21 | PD.RESCONSUL ---
HPI Data of Consult Consult date: 05/18/25 Requesting Physician: Yeison Coker MD Admitting Provider: Yeison Coker MD Attending Provider: Yeison Coker MD Primary Care Provider: Prasanna Morrell MD Consult Narrative Reason for consult: Oliguria/Anuria - WARREN in ICU patient post-septic shock and exploratory lap History of present illness: 70-year-old female with a history of nephrolithiasis (s/p bilateral nephrostomy tubes placed Sep 2024), endometrial cancer in remission, type 2 diabetes mellitus, chronic anemia, and COPD, admitted with perforated sigmoid diverticulitis and feculent peritonitis. She underwent exploratory laparotomy, sigmoid colectomy with end descending colostomy, and hysterectomy on 05/17. Nephrology was re-consulted today for no urine output. Overnight urine output was 50 cc total, despite adequate fluid resuscitation and pressor support (on norepinephrine and vasopressin). Patient remains in the ICU, intubated and sedated on propofol/fentanyl, receiving broad-spectrum antibiotics (ciprofloxacin + metronidazole). 05/18/2025: Patient seen in ICU during morning rounds. Intubated, sedated, on vasopressor support. No urine output noted from nephrostomy tubes or Bal. Nursing reports total 50 cc output overnight. No new fevers reported. BP 112/57 mmHg, HR 82. Labs: WBC 18.6, Hgb 10.4, Hct 31.6, Plt 106 (yesterday 419), Na 136, K 5.4, Cl 108, CO2 13.4, BUN 40, Cr 2.5 (GFR 20), Ca 8.8, Phos 6.0, Mg 2.1, Albumin 2.7, Alk Phos 176, Lactic acid 3.0->3.2. ABG: pH 7.30, pCO2 32, HCO3 13. cc:: cc: Yeison Coker MD Exam Vital Signs Temp Pulse Resp BP Pulse Ox O2 Del Method O2 Flow Rate 98.0 F 82 18 112/57 L 99 Room Air 2 05/18/25 08:00 05/18/25 10:37 05/17/25 13:55 05/18/25 09:45 05/18/25 10:37 05/17/25 08:01 05/16/25 15:14 FiO2 35 05/18/25 10:37 Narrative Exam General: Sedated, intubated, appears critically ill. CV: Regular rate and rhythm, no murmurs, no JVD. Resp: Intubated, clear to auscultation bilaterally, ventilated breath sounds equal. Abdomen: Post-op midline dressing clean/dry/intact; colostomy bag in place. : Bilateral nephrostomy tubes present but no drainage noted. Bal with scant winter urine (~50 cc overnight). Extremities: No edema or cyanosis. Neuro: Sedated. Skin: Warm, no mottling. Results Labs 05/18/25 04:20 05/18/25 19:33 Labs: Short CBC 05/18/25 Range/Units 04:20 WBC 18.6 H (3.6-11.0) Thou/mm3 Hgb 10.4 L (12.0-16.0) g/dL Hct 31.6 L (36.0-46.0) % Plt Count 106 L D (140-440) Thou/mm3 BMP 05/17/25 05/17/25 05/18/25 12:35 20:28 04:20 Sodium 137 137 136 Potassium 4.8 5.0 5.4 H Chloride 109 H 110 H 108 H Carbon Dioxide 13.4 L* 11.5 L* 13.4 L* BUN 37 H 27 H 40 H Creatinine 2.3 H 2.3 H 2.5 H Glucose 175 H 150 H 139 H Calcium 8.0 L 7.3 L 7.8 L Liver Function 05/17/25 05/18/25 Range/Units 20:28 04:20 Total Bilirubin 0.5 (0.3-1.2) mg/dL AST 19 (0-34) U/L ALT < 7 L (10-49) U/L Alkaline Phosphatase 176 H D (46-116) U/L Albumin 1.9 L D 2.7 L D (3.4-4.8) gm/dL ABG Interpretation ABG results: 05/16/25 05/16/25 05/16/25 12:11 18:26 19:18 ABG pH 7.41 ABG pCO2 29 L ABG pO2 86 ABG HCO3 18 L ABG O2 Saturation 96 ABG Base Excess -6 L VBG pH 7.26 L 7.36 VBG pCO2 36 32 L VBG pO2 49 46 VBG Base Excess -10 L -7 L 05/17/25 05/17/25 05/17/25 01:51 01:58 12:35 ABG pH 7.34 L 7.21 L D ABG pCO2 30 L 30 L ABG pO2 92 181 H D ABG HCO3 16 L 12 L ABG O2 Saturation 97 99 H ABG Base Excess -9 L -15 L VBG pH 7.28 L VBG pCO2 37 VBG pO2 60 H VBG Base Excess -9 L 05/17/25 05/17/25 05/18/25 15:12 22:59 04:06 ABG pH 7.17 L* 7.26 L 7.23 L ABG pCO2 32 26 L 32 ABG pO2 343 H D 298 H D 208 H D ABG HCO3 12 L 12 L 13 L ABG O2 Saturation 100 H 100 H 100 H ABG Base Excess -16 L -14 L -13 L VBG pH VBG pCO2 VBG pO2 VBG Base Excess Quality Measures Quality Measures VTE prophylaxis Advance care planning discussed with:: patient Medications Home Medications and Allergies Home Medications ?Medication ?Instructions ?Recorded ?Confirmed ?Type pantoprazole 40 mg tablet,delayed 40 mg PO QDAY 06/14/23 05/17/25 History release (Protonix) acetaminophen 500 mg capsule 500 mg PO BID PRN pain 05/17/25 05/17/25 History aspirin 81 mg tablet 81 mg PO QDAY 05/17/25 05/17/25 History atorvastatin 20 mg tablet 20 mg PO DAILY CHOLESTEROL 05/17/25 05/17/25 History cyanocobalamin (vitamin B-12) 100 100 mcg PO QDAY 05/17/25 05/17/25 History mcg tablet (Vitamin B-12) ferrous sulfate 325 mg (65 mg 65 mg PO BID 05/17/25 05/17/25 History iron) tablet (iron) fludrocortisone 0.1 mg tablet 0.1 mg PO DAILY 05/17/25 05/17/25 History hydrocodone 10 mg-acetaminophen 1 tab PO Q6H PRN pain 05/17/25 05/17/25 History 325 mg tablet magnesium glycinate 100 mg (as 400 mg PO BID 05/17/25 05/17/25 History glycinate) tablet (Mag Glycinate) midodrine 5 mg tablet 5 mg PO Q8H 05/17/25 05/17/25 History Allergies Allergy/AdvReac Type Severity Reaction Status Date / Time cephalexin Allergy Severe DIARRHEA Verified 03/01/25 13:40 coconut oil Allergy Severe Rash Verified 10/31/24 12:33 Sulfa (Sulfonamide Allergy Verified 04/20/25 10:15 Antibiotics) Visit Medications Hydromorphone HCl (Hydromorphone Inj 2 Mg/Ml Vial) 1 mg IVP Q2H PRN On Hold: 05/18/25 08:05 Comment: FENTANYL gtts STILL RUNNING PRN Reason: PAIN Stop: 05/22/25 10:12 Norepinephrine/Dextrose (Levophed In D5w 8mg/250ml) 8 mg in 250 mls @ 6.785 mls/hr IV .Q24H PRN; Protocol PRN Reason: PER PROTOCOL Stop: 06/15/25 17:48 Last Titration: 05/18/25 10:00 Dose: 0.32 mcg/kg/min, 43.426 mls/hr Metronidazole (Flagyl 500 Mg Iv) 500 mg in 100 mls @ 200 mls/hr IV Q8HR JESSICA Stop: 05/23/25 21:59 Last Admin: 05/18/25 05:00 Dose: 200 mls/hr Acetaminophen (Ofirmev Inj) 1,000 mg in 100 mls @ 250 mls/hr IV Q6H PRN PRN Reason: fever >99.9 Stop: 05/19/25 20:36 Last Infusion: 05/17/25 04:00 Dose: Infused Vasopressin/Sodium Chloride (Vasostrict/Ns Ivpb) 20 unit in 100 mls @ 9 mls/hr IV .Q11H7M PRN; Protocol PRN Reason: PER PROTOCOL Stop: 06/16/25 00:57 Last Admin: 05/18/25 04:53 Dose: 0.03 unit/min, 9 mls/hr Ciprofloxacin/Dextrose (Cipro Ivpb) 400 mg in 200 mls @ 200 mls/hr IV QDAY JESSICA Stop: 05/25/25 08:59 Last Admin: 05/18/25 08:05 Dose: 200 mls/hr Fentanyl Citrate (Sublimaze Inj 2,500 Mcg/250 Ml Bag) 2,500 mcg in 250 mls @ 2.5 mls/hr IV .Q24H PRN; Protocol PRN Reason: PER PROTOCOL Stop: 05/22/25 13:33 Last Titration: 05/18/25 10:00 Dose: 175 mcg/hr, 17.5 mls/hr Propofol (Diprivan Ivpb) 1,000 mg in 100 mls @ 2.214 mls/hr IV .Q24H PRN; Protocol PRN Reason: PER PROTOCOL Stop: 06/16/25 14:18 Last Titration: 05/18/25 10:00 Dose: 10 mcg/kg/min, 4.428 mls/hr Albumin Human (Albuminex 25% Ivpb) 25 gm in 100 mls @ 100 mls/hr IV QDAY [facility] Stop: 06/16/25 21:45 Last Admin: 05/18/25 08:05 Dose: 100 mls/hr Ondansetron HCl (Ondansetron Inj 2 Mg/Ml Inj 2 Ml) 4 mg IVP Q6H PRN; Protocol PRN Reason: NAUSEA OR VOMITING Stop: 06/15/25 18:33 Last Admin: 05/17/25 09:51 Dose: 4 mg Pantoprazole Sodium (Pantoprazole Inj 40 Mg Vial) 40 mg IVP QDAY [facility] Stop: 06/16/25 08:59 Last Admin: 05/18/25 08:06 Dose: 40 mg Pharmacy Consult (Pharmacy Renal Dose Adjustment 1 Ea) 1 each XX PRN PRN PRN Reason: CONSULT Stop: 06/15/25 16:36 Discontinued Medications Acetaminophen (Acetaminophen 325 Mg Tablet) 650 mg PO Q6H PRN PRN Reason: Fever >101.5 Stop: 06/15/25 18:33 Acetaminophen (Acetaminophen 325 Mg Tablet) 650 mg PO Q6H PRN PRN Reason: PAIN SCALE 1-3 (mild Stop: 06/15/25 18:33 Dextrose (Dextrose 50%-Water Inj 50 Ml Syringe) 50 ml IVP X1 ONE Stop: 05/18/25 06:51 Last Admin: 05/18/25 07:24 Dose: 50 ml Epinephrine HCl (Epinephrine Inj 0.1 Mg/Ml Syringe 10ml) 1 mg IVP X1 ONE Stop: 05/17/25 13:46 Last Admin: 05/17/25 14:09 Dose: Not Given Famotidine (Famotidine Inj 10 Mg/Ml Vial 2 Ml) 20 mg IVP X1 ONE Stop: 05/17/25 10:27 Last Admin: 05/17/25 11:04 Dose: 20 mg Heparin Sodium (Beef Lung) (Heparin Sod Lock Syr 100 Unit/Ml) 500 unit IV X1 ONE Stop: 05/18/25 10:14 Last Admin: 05/18/25 10:31 Dose: Not Given Heparin Sodium (Porcine) (Heparin Sod Inj 5000 Unit/Ml Vial) 5,000 unit SC Q8HR JESSICA Stop: 05/30/25 21:59 Hydromorphone HCl (Hydromorphone Inj 2 Mg/Ml Vial) 1 mg IVP X1 ONE Stop: 05/16/25 14:02 Last Admin: 05/16/25 14:10 Dose: 1 mg Hydromorphone HCl (Hydromorphone Inj 2 Mg/Ml Vial) 0.5 mg IVP X1 ONE Stop: 05/16/25 20:37 Last Admin: 05/16/25 20:52 Dose: 0.5 mg Hydromorphone HCl (Hydromorphone Inj 2 Mg/Ml Vial) 0.5 mg IVP X1 ONE Stop: 05/17/25 03:35 Last Admin: 05/17/25 03:46 Dose: 0.5 mg Hydromorphone HCl (Hydromorphone Inj 2 Mg/Ml Vial) 1 mg IVP X1 ONE Stop: 05/17/25 10:13 Last Admin: 05/17/25 10:19 Dose: 1 mg Lactated Ringer's (Lactated Ringers) 1,000 mls @ 999 mls/hr IV .Q1H1M ONE Stop: 05/16/25 12:49 Last Infusion: 05/16/25 12:41 Dose: Infused Lactated Ringer's (Lactated Ringers) 1,000 mls @ 999 mls/hr IV .Q1H1M ONE Stop: 05/16/25 13:35 Last Infusion: 05/16/25 16:56 Dose: Infused Ciprofloxacin/Dextrose (Cipro Ivpb) 400 mg in 200 mls @ 200 mls/hr IV X1 ONE Stop: 05/16/25 13:51 Last Infusion: 05/16/25 17:08 Dose: Infused Metronidazole (Flagyl 500 Mg Iv) 500 mg in 100 mls @ 100 mls/hr IV X1 ONE Stop: 05/16/25 15:19 Last Infusion: 05/16/25 17:08 Dose: Infused Lactated Ringer's (Lactated Ringers) 500 mls @ 999 mls/hr IV .Q31M ONE Stop: 05/16/25 16:07 Last Infusion: 05/16/25 16:56 Dose: Infused Acetaminophen (Ofirmev Inj) 1,000 mg in 100 mls @ 250 mls/hr IV X1 ONE Stop: 05/16/25 16:28 Last Infusion: 05/16/25 17:08 Dose: Infused Ceftriaxone Sodium 2 gm/ (Sodium Chloride) 50 mls @ 100 mls/hr IV QDAY JESSICA Stop: 05/23/25 16:34 Metronidazole (Flagyl 500 Mg Iv) 500 mg in 100 mls @ 200 mls/hr IV Q8HR JESSICA Stop: 05/23/25 21:59 Norepinephrine/Dextrose (Levophed In D5w 8mg/250ml) 8 mg in 250 mls @ 6.785 mls/hr IV .Q24H PRN; Protocol PRN Reason: PER PROTOCOL Stop: 06/15/25 17:48 Lactated Ringer's (Lactated Ringers) 1,000 mls @ 999 mls/hr IV .Q1H1M ONE Stop: 05/16/25 18:50 Last Infusion: 05/16/25 18:49 Dose: Infused Ciprofloxacin/Dextrose (Cipro Ivpb) 400 mg in 200 mls @ 200 mls/hr IV Q24H JESSICA Stop: 05/24/25 08:59 Piperacillin/Tazobactam/Dextrose (Zosyn) 3.375 gm in 50 mls @ 12.5 mls/hr IV Q8HR JESSICA; Protocol Stop: 05/23/25 22:59 Ciprofloxacin/Dextrose (Cipro Ivpb) 400 mg in 200 mls @ 200 mls/hr IV Q12HR JESSICA Stop: 05/23/25 21:59 Last Admin: 05/17/25 09:37 Dose: 200 mls/hr Albumin Human (Albuminar-25 Ivpb) 12.5 gm in 50 mls @ 100 mls/hr IV X1 ONE Stop: 05/16/25 19:49 Last Infusion: 05/17/25 04:00 Dose: Infused Magnesium Sulfate (Magnesium Sulfate Ivpb) 2 gm in 50 mls @ 25 mls/hr IV X1 ONE Stop: 05/16/25 21:43 Last Infusion: 05/17/25 04:00 Dose: Infused Acetaminophen (Ofirmev Inj) 1,000 mg in 100 mls @ 250 mls/hr IV Q6H JESSICA Stop: 05/17/25 14:14 Last Admin: 05/16/25 20:40 Dose: Not Given Lactated Ringer's (Lactated Ringers) 500 mls @ 999 mls/hr IV .Q31M ONE Stop: 05/17/25 07:00 Last Admin: 05/17/25 07:02 Dose: 999 mls/hr Lactated Ringer's (Lactated Ringers) 1,000 mls @ 999 mls/hr IV .Q1H1M ONE Stop: 05/17/25 03:00 Last Infusion: 05/17/25 07:06 Dose: Infused Sodium Chloride (Ns) 500 mls @ 999 mls/hr IV .Q31M ONE Stop: 05/17/25 10:19 Last Admin: 05/17/25 09:56 Dose: 999 mls/hr Midazolam HCl (Versed Pf Inj In Ns Premix) 100 mg in 100 mls @ 1 mls/hr IV .Q24H PRN; Protocol PRN Reason: PER PROTOCOL Stop: 05/22/25 13:32 Last Admin: 05/17/25 14:00 Dose: 1 mg/hr, 1 mls/hr Amiodarone HCl 150 mg/ (Dextrose) 103 mls @ 600 mls/hr IV X1 ONE Stop: 05/17/25 13:55 Last Admin: 05/17/25 14:09 Dose: Not Given Amiodarone HCl/Dextrose (Nexterone Ivpb) 150 mg in 100 mls @ 600 mls/hr IV .Q10M ONE Stop: 05/17/25 13:54 Last Admin: 05/17/25 14:09 Dose: Not Given Amiodarone HCl/Dextrose (Nexterone Ivpb) 360 mg in 200 mls @ 33.333 mls/hr IV .Q6H ONE Stop: 05/17/25 19:44 Last Admin: 05/17/25 14:09 Dose: Not Given Amiodarone HCl/Dextrose (Nexterone Ivpb) 360 mg in 200 mls @ 16.667 mls/hr IV .Q12H JESSICA Stop: 05/18/25 13:45 Last Admin: 05/17/25 14:10 Dose: Not Given Lactated Ringer's (Lactated Ringers) 1,000 mls @ 999 mls/hr IV .Q1H1M ONE Stop: 05/17/25 19:43 Last Admin: 05/17/25 19:51 Dose: 999 mls/hr Insulin Human Regular (Insulin Hum Regular 1 Unit/0.01 Ml (Per Unit)) 5 unit IV X1 ONE Stop: 05/18/25 06:51 Last Admin: 05/18/25 07:11 Dose: 5 unit Lidocaine (Lidocaine 5% 1 Patch) 1 patch TOP X1 ONE Stop: 05/16/25 20:37 Last Admin: 05/16/25 21:03 Dose: 1 patch Midazolam HCl (Midazolam Inj 1 Mg/Ml Vial 2 Ml) 2.5 mg IVP X1 ONE Stop: 05/17/25 13:45 Last Admin: 05/17/25 14:09 Dose: Not Given Ondansetron HCl (Ondansetron Inj 2 Mg/Ml Inj 2 Ml) 4 mg IVP X1 ONE; Protocol Stop: 05/16/25 16:44 Last Admin: 05/16/25 16:49 Dose: 4 mg Ondansetron HCl (Ondansetron Inj 2 Mg/Ml Inj 2 Ml) 4 mg IVP X1 ONE; Protocol Stop: 05/17/25 10:22 Last Admin: 05/17/25 11:04 Dose: 4 mg Pantoprazole Sodium (Pantoprazole Inj 40 Mg Vial) 40 mg IVP X1 ONE Stop: 05/16/25 12:22 Last Admin: 05/16/25 12:41 Dose: 40 mg Scopolamine (Scopolamine 1 Mg Tdsy) 1 mg TOP X1 ONE Stop: 05/17/25 06:30 Last Admin: 05/17/25 07:05 Dose: 1 mg Sodium Chloride (Sodium Chloride Rt 10% 15 Ml Nebu) 5 ml INH X1 ONE Stop: 05/17/25 14:10 Last Admin: 05/17/25 20:59 Dose: Not Given Assessment & Plan Plan 70F with septic shock post-surgery, now anuric with worsening WARREN likely multifactorial (septic ATN ? obstructive from non-draining nephrostomy tubes). Given persistent anuria, rising azotemia, and metabolic acidosis, patient will undergo dialysis today. # Acute Kidney Injury Likely ischemic ATN + possible obstructive component Cr 2.5, UOP < 50 cc/overnight Patient with anuric WARREN in the setting of septic shock and recent abdominal surgery. Baseline creatinine 0.8?1.3, now 2.5 with urine output <50 cc/24h. Likely multifactorial: ischemic acute tubular necrosis (ATN) from hypotension and sepsis, possible obstructive component given bilateral nephrostomy tubes with no drainage, and nephrotoxin exposure from perioperative antibiotics and contrast risk. The absence of response to fluids and continued anuria despite adequate perfusion supports intrinsic renal injury. Plan: Initiate hemodialysis today for clearance and acidosis management. Evaluate nephrostomy tube patency; flush both sides and confirm positioning. Continue daily renal panel and strict I&O. Avoid nephrotoxins, renally dose antibiotics. Continue to assess for renal recovery post-dialysis. # Metabolic Acidosis Patient?s acidosis is mixed, both anion gap and non?anion gap metabolic acidosis are present. ABG shows pH 7.30, HCO3 13, pCO2 32, indicating metabolic acidosis with respiratory compensation. Anion gap = 15; when corrected for low albumin (2.7), the true AG is 18, confirming an anion gap metabolic acidosis (AGMA) likely from lactic acidosis due to sepsis. The delta ratio (AG/HCO3 = 0.5) is <1, suggesting a coexisting non?anion gap metabolic acidosis (NAGMA) likely from renal failure and saline resuscitation. Plan: Dialysis today will assist with correction. Trend ABG and lactate. No bicarbonate infusion for now since [employer] planned. # Hyperkalemia K 5.4 due to renal failure. Plan: Monitor on telemetry. Repeat BMP post-dialysis. Dialysis will address K clearance. # Septic Shock Post-op from perforated diverticulitis, on norepinephrine and vasopressin. Plan: Continue broad-spectrum antibiotics (Cipro + Flagyl). Maintain perfusion pressure for renal support. Trend lactate and hemodynamics throughout dialysis. Other problems: #Diverticulitis of large intestine with perforation (s/p exploratory laparotomy, sigmoid colectomy, colostomy, hysterectomy on 05/17) #Postoperative state (post-surgical, day 1) #Leukocytosis #Normocytic anemia #Thrombocytopenia #Lactic acidosis #Hyponatremia #Presence of nephrostomy tubes bilaterally #Presence of colostomy #Type 2 diabetes mellitus (controlled, A1C 5.2) #COPD #Endometrial cancer, in remission #Mechanical ventilation dependence Management per ICU team ----- Plan discussed with attending physician Dr. Garcia Jackson MD PGY-1 Internal Medicine Attending Provider Attestation/Addendum Patient seen and examined with resident physician Dr. Jackson. Note reviewed, agree with findings and recommendations. Patient currently seen on ventilator. In ICU. Hemodynamic instability-on pressors. Urine output very minimal. Noted WARREN, intractable metabolic acidosis, hyperkalemia. Decided to proceed with dialysis. Patient on stable and will be started on CRRT. Vas-Cath placed by ICU team. CRRT-24 hours Blood flow 150-200 Dialysate flow 100 Saline flush 50 to 80 mL/h No heparin Citrasate dialysate 3K 3.5 calcium 40 bicarbonate Renal panel every 6 hours while on CRRT. Care discussed with ICU team. Critical care time spent more than 45 minutes regarding plan of care and disease management. Prognosis remains guarded. Thank you Dr. Coker for allowing me to participate in the care of Ms. Kiser
--- NOTE | 2025-05-18 11:54 | PC.DIETICIAN ---
Nutrition prescription If vasopressor needs decrease, consider: Trophic feeds of Nepro at 10 ml/hr via OG tube by pump. If no IV fluids, water flushes of 25 ml/hr (or per MD). Once more stable, advance 10 ml every 8 hrs to goal rate of 30 ml/hr x 24 hrs.
[2025-05-18 12:18] LABS: Base Excess, Venous -12 (-3-3); O2 Saturation, Venous 98 % (96-97); PCO2, Venous 35 mmHg (36-56); PO2, Venous 173 mmHg (15-58); pH, Venous 7.23 (7.33-7.66)
--- NOTE | 2025-05-18 12:57 | PD.RESPROC ---
PROCEDURES: Procedure Date / Time 05/18/25 1172 Procedure Narrative Procedure Narrative: Right IJ central venous dialysis catheter placement A time out was performed. My hands were washed immediately prior to the procedure. I wore a surgical cap, mask with protective eyewear, full gown and sterile gloves throughout the procedure. The patient was placed in Trendelenburg position. Right chest region was prepped using chlorhexidine scrub and draped in sterile fashion using a full drape and sterile probe cover and sterile gel employed. The medial and lateral heads of the sternocleidomastoid muscle were identified as was the carotid pulse. The Right Internal Jugular vein was identified using the ultrasound. Anesthesia was achieved over the vein using 1% lidocaine. Using real-time out of plane guidance, the introducer needle was inserted into the Right Internal Jugular vein under direct ultrasound visualization. Venous blood was withdrawn. The syringe was removed and a guidewire was advanced into the introducer needle. The guidewire was visualized in the Internal Jugular Vein by ultrasound. A small incision was made at the skin surface with a scalpel and the introducer needle was exchanged for the first dilator over the guidewire. Next the 2nd larger dilator was exchanged for the first dilator. After appropriate dilation was obtained, the dilator was exchanged over the wire for a central venous catheter. The wire was removed and the catheter was sutured in place. A sterile sorbaview shield was placed over the catheter at the insertion site. The patient tolerated the procedure without any hemodynamic compromise. At time of procedure completion, all ports aspirated and flushed properly. Post-procedure chest x-ray is pending at this time. Estimated blood loss is <5cc. -- Procedure performed under the supervision of ICU attending, Dr Coker and Resident Physician Dr. Kia MD PGY1 Arterial Line Size (Gauge): 20 Attestation Attestation I was present for entire procedure. No immediate complications. Patient tolerated procedure well. No post procedure PTX and catheter tip in adequate position.
--- NOTE | 2025-05-18 13:01 | PD.SURPROG ---
Documentation for date of: 05/18/25 Subjective Subjective Narrative: Patient is seen and examined in ICU. Currently intubated and sedated. Requiring 2 pressor support. Low urine output, nephrology was consulted Exam Vital Signs Temp Pulse Resp BP Pulse Ox O2 Del Method O2 Flow Rate 98.0 F 77 18 99/59 L 99 Room Air 2 05/18/25 08:00 05/18/25 11:30 05/17/25 13:55 05/18/25 11:30 05/18/25 11:30 05/17/25 08:01 05/16/25 15:14 FiO2 35 05/18/25 12:00 Constitutional Comments: Intubated and sedated Routine Abdominal Exam Comments: Abdomen is soft and mildly distended. Colostomy is present and patent with edema Assessment & Plan Assessment Additional comments: Postop day #1 status post exploratory laparotomy with sigmoid colectomy, end colostomy and hysterectomy Plan Continue IV antibiotics. Nephrology was consulted for WARREN. Prognosis is poor PROCEDURES: Procedures Exploratory laparotomy, sigmoid colectomy with end descending colostomy Hysterectomy
[2025-05-18] MEDS: Norepinephrine/D5W 8mg/250ml 8 MG/250 ML BAG 46.14 MG IV (14:01)
--- NOTE | 2025-05-18 14:35 | ESPR_ITS ---
Documentation for date of: 05/18/25 Subjective Subjective Interval history: 70-year-old female with a medical history significant for nephrolithiasis (status post bilateral nephrostomy tubes in September 2024), endometrial cancer (in remission, s/p chemo and radiation), non-insulin dependent type 2 diabetes mellitus, anemia, and COPD presents with severe 10/10 abdominal pain and non- bloody vomiting that began one day ago. Patient reports that the abdominal pain is present even with slight movements. The abdominal pain is worse on the right lower quadrant. Patient endorses associated symptoms of fever, chills, and headache. A limited history was obtained from the patient due to significant pain, as she reports that even speaking exacerbates her discomfort. General surgery was consulted. Patient was admitted to the ICU for septic shock. ED Course: -Initial vitals were: BP 84/58, HR 72, RR 31, T 101.1F, O2 sat 100% on oxy mask. -Labs significant for: WBC 16.3, RBC 3.84, Hgb 10.2, Hct 33.7, MCHC 30.3, Plt 602, bicarbonate 15.8, anion gap 17, BUN 33, Cr 2.3, eGFR 22, glucose 154, lactic acid 4.8, ALT < 7, ALP 457, albumin 3.2, procalcitonin 25.58. VBG pH 7.26, pCO2 36, pO2 49, O2 sat 79%. Urinalysis WBC 1069, positive leukocyte esterase. -Imaging included: CT abd/pelvis: bilateral nephrostomy ureteral catheter with no significant hydronephrosis, acute sigmoid diverticulitis with localized rupture of diverticula and mild pelvic pneumoperitoneum. -In the ED, patient was given: LR 2.5L, pantoprazole 40 mg IV x1, Ciprofloxacin 400mg in 200 mls IV x1, hydromorphone 1 mg IV x1, Metronidazole 500 mg IV x1, acetaminophen 1000 mg IV x1, ondansetron 4mg IV x1. Past Medical History: as above Past Surgical History: bilateral nephrostomy tubes in September 2024, appendenctomy and cholecystectomy. Family History: extensive family history of cardiac disease and lung problems. Social History: - Smoking: denies - Alcohol: denies - Illicit drugs: denies - Residence: lives in [place] in a SNF. Current Medications: pending med recs. Allergies: cephalexin - diarrhea, sulfa antibiotics - rash, coconut oil - rash. Interval History: 05/18/2025: Patient Levophed uptitrated overnight. Patient continues to have no urinary output with worsening renal function and acidosis on labs, right IJ Vas- Cath placed and Tablo dialysis initiated. Patient also developed significant thrombocytopenia, suspect consumptive following large surgery. Last goals updated 2-2. Over course of dialysis, Levophed was able to be down titrated, remains greater than 0.2. Echocardiogram ordered due to ongoing elevated pressor requirements. 05/17/2025: Overnight, NICOM was used to assess fluid responsiveness, and it indicated that the patient is 39% fluid responsive. The patient was on levophed at 0.19 mcg/kg/min and received 12.5 grams of albumin in 50 mL, along with 1L of LR, to address her low blood pressure. For abdominal pain management, the patient was given 0.5 mg of Dilaudid x2, IV Tylenol, a lidocaine patch, and a scopolamine patch. Additionally, the patient received 4 mg of Zofran for nausea. According to nursing staff, the patient had a diaper with a moderate amount of urine but no urine output in the nephrostomy bag. The patient refused a Bal catheter and a purewick was placed instead. A bladder scan showed no urine production. The patient has not been producing urine. Nephrology recommended increasing fluid intake and flushing the nephrostomy tubes. Vasopressin was eventually added for her low blood pressures. A right femoral arterial line was placed before patient went to surgery. Patient underwent an exploratory laparotomy, sigmoid colectomy with end descending colostomy and hysterectomy. Findings from the operation: Inflamed and thickened sigmoid with large perforation and feculent peritonitis. Inflamed and necrotic appearing uterus. Very thin anterior abdominal fascia with evidence of multiple mesh placements from prior operations. Exam Vital Signs Temp Pulse Resp BP Pulse Ox O2 Del Method O2 Flow Rate 98.2 F 72 22 H 89/58 L 99 Room Air 2 10/16/25 13:10 05/18/25 14:30 05/18/25 13:10 05/18/25 14:30 05/18/25 14:17 05/17/25 08:01 05/16/25 15:14 FiO2 35 05/18/25 14:17 Narrative Exam Physical Exam General: Obese body habitus. Head: Normocephalic, atraumatic. Eyes: Pupils equally round and reactive to light. Anicteric. Mouth/Throat: Moist mucous membranes. Heart: Regular rate and rhythm, no murmurs. No JVD. Lungs: Clear to auscultation with no wheezing or crackles. Non-labored respirations, symmetric chest rise, no use of accessory muscles. Abdomen: Midline laparotomy site, clean, dry, intact. Neurologic: Sedated, RASS -3. Extremities: No edema. Posterior tibial pulses are 2+ bilaterally. 2+ radial pulse bilaterally. No clubbing or cyanosis. No mottling. Skin: No rash. Scratch savage on left lower leg. Objective Labs 05/18/25 04:20 05/19/25 01:48 Labs: Laboratory Results - last 24 hr 05/17/25 05/17/25 05/17/25 15:12 16:59 20:28 WBC RBC Hgb Hct MCV MCH MCHC RDW Std Deviation Plt Count Neut % (Auto) Lymph % (Auto) [place] % (Auto) Eos % (Auto) Baso % (Auto) Neut # (Auto) Lymph # (Auto) Stoddard # (Auto) Eos # (Auto) Baso # (Auto) Immature Gran # (Auto) Absolute Nucleated RBC Immature Gran % Nucleated RBC % Puncture Site Arterial Line ABG pH 7.17 L* ABG pCO2 32 ABG pO2 343 H D ABG HCO3 12 L ABG O2 Saturation 100 H ABG Base Excess -16 L VBG pH VBG pCO2 VBG pO2 VBG O2 Sat (Miriam) VBG Base Excess FiO2 100 Sodium 137 Potassium 5.0 Chloride 110 H Carbon Dioxide 11.5 L* Anion Gap 16 BUN 27 H Creatinine 2.3 H Estim Creat Clear Calc 21.4 L eGFR 22 L BUN/Creatinine Ratio 12 Glucose 150 H Calculated Osmolality 281 Lactic Acid 5.1 H* 5.6 H* Calcium 7.3 L Corrected Calcium 9.0 Phosphorus 5.5 H Magnesium Total Bilirubin AST ALT Alkaline Phosphatase Total Protein Albumin 1.9 L D Globulin Albumin/Globulin Ratio 05/17/25 05/18/25 05/18/25 22:59 01:55 04:06 WBC RBC Hgb Hct MCV MCH MCHC RDW Std Deviation Plt Count Neut % (Auto) Lymph % (Auto) [place]odd[place] % (Auto) Eos % (Auto) Baso % (Auto) Neut # (Auto) Lymph # (Auto) [place]oddard # (Auto) Eos # (Auto) Baso # (Auto) Immature Gran # (Auto) Absolute Nucleated RBC Immature Gran % Nucleated RBC % Puncture Site Arterial Line Arterial Line ABG pH 7.26 L 7.23 L ABG pCO2 26 L 32 ABG pO2 298 H D 208 H D ABG HCO3 12 L 13 L ABG O2 Saturation 100 H 100 H ABG Base Excess -14 L -13 L VBG pH VBG pCO2 VBG pO2 VBG O2 Sat (Miriam) VBG Base Excess FiO2 65 50 Sodium Potassium Chloride Carbon Dioxide Anion Gap BUN Creatinine Estim Creat Clear Calc eGFR BUN/Creatinine Ratio Glucose Calculated Osmolality Lactic Acid 4.2 H* 3.6 H Calcium Corrected Calcium Phosphorus Magnesium Total Bilirubin AST ALT Alkaline Phosphatase Total Protein Albumin Globulin Albumin/Globulin Ratio 05/18/25 05/18/25 05/18/25 04:20 06:47 10:55 WBC 18.6 H RBC 3.62 L Hgb 10.4 L Hct 31.6 L MCV 87 MCH 28.7 MCHC 32.9 RDW Std Deviation 52.7 H Plt Count 106 L D Neut % (Auto) 93 H Lymph % (Auto) 3 L Stodd[place] % (Auto) 2 Eos % (Auto) 0 Baso % (Auto) 1 Neut # (Auto) 17.2 H Lymph # (Auto) 0.5 L Stoddard # (Auto) 0.3 Eos # (Auto) 0.0 Baso # (Auto) 0.2 Immature Gran # (Auto) 0.39 H Absolute Nucleated RBC 0.00 Immature Gran % 2 H Nucleated RBC % 0 Puncture Site ABG pH ABG pCO2 ABG pO2 ABG HCO3 ABG O2 Saturation ABG Base Excess VBG pH VBG pCO2 VBG pO2 VBG O2 Sat (Miriam) VBG Base Excess FiO2 Sodium 136 Potassium 5.4 H Chloride 108 H Carbon Dioxide 13.4 L* Anion Gap 15 BUN 40 H Creatinine 2.5 H Estim Creat Clear Calc 19.7 L eGFR 20 L BUN/Creatinine Ratio 16 Glucose 139 H Calculated Osmolality 283 Lactic Acid 3.0 H 3.2 H Calcium 7.8 L Corrected Calcium 8.8 Phosphorus 6.0 H Magnesium 2.1 Total Bilirubin 0.5 AST 19 ALT < 7 L Alkaline Phosphatase 176 H D Total Protein 4.5 L Albumin 2.7 L D Globulin 1.8 L Albumin/Globulin Ratio 1.5 05/18/25 12:10 WBC RBC Hgb Hct MCV MCH MCHC RDW Std Deviation Plt Count Neut % (Auto) Lymph % (Auto) [place]odd[place] % (Auto) Eos % (Auto) Baso % (Auto) Neut # (Auto) Lymph # (Auto) Stoddard # (Auto) Eos # (Auto) Baso # (Auto) Immature Gran # (Auto) Absolute Nucleated RBC Immature Gran % Nucleated RBC % Puncture Site ABG pH ABG pCO2 ABG pO2 ABG HCO3 ABG O2 Saturation ABG Base Excess VBG pH 7.23 L VBG pCO2 35 L VBG pO2 173 H D VBG O2 Sat (Miriam) 98 H VBG Base Excess -12 L FiO2 Sodium Potassium Chloride Carbon Dioxide Anion Gap BUN Creatinine Estim Creat Clear Calc eGFR BUN/Creatinine Ratio Glucose Calculated Osmolality Lactic Acid Calcium Corrected Calcium Phosphorus Magnesium Total Bilirubin AST ALT Alkaline Phosphatase Total Protein Albumin Globulin Albumin/Globulin Ratio ABG Interpretation ABG results: 05/16/25 05/16/25 05/16/25 12:11 18:26 19:18 ABG pH 7.41 ABG pCO2 29 L ABG pO2 86 ABG HCO3 18 L ABG O2 Saturation 96 ABG Base Excess -6 L VBG pH 7.26 L 7.36 VBG pCO2 36 32 L VBG pO2 49 46 VBG Base Excess -10 L -7 L 05/17/25 05/17/25 05/17/25 01:51 01:58 12:35 ABG pH 7.34 L 7.21 L D ABG pCO2 30 L 30 L ABG pO2 92 181 H D ABG HCO3 16 L 12 L ABG O2 Saturation 97 99 H ABG Base Excess -9 L -15 L VBG pH 7.28 L VBG pCO2 37 VBG pO2 60 H VBG Base Excess -9 L 05/17/25 05/17/25 05/18/25 15:12 22:59 04:06 ABG pH 7.17 L* 7.26 L 7.23 L ABG pCO2 32 26 L 32 ABG pO2 343 H D 298 H D 208 H D ABG HCO3 12 L 12 L 13 L ABG O2 Saturation 100 H 100 H 100 H ABG Base Excess -16 L -14 L -13 L VBG pH VBG pCO2 VBG pO2 VBG Base Excess 05/18/25 12:10 ABG pH ABG pCO2 ABG pO2 ABG HCO3 ABG O2 Saturation ABG Base Excess VBG pH 7.23 L VBG pCO2 35 L VBG pO2 173 H D VBG Base Excess -12 L Quality Measures Quality Measures VTE prophylaxis Advance care planning discussed with:: patient Assessment & Plan Assessment Current Active Medications: Generic Name Dose Route Start Last Admin Trade Name Freq PRN Reason Stop Dose Admin Hydromorphone HCl 1 mg 05/17/25 10:13 Hydromorphone Inj 2 Mg/Ml Vial IVP 05/22/25 10:12 On Hold: 05/18/25 08:05 Q2H PRN Comment: FENTANYL gtts [employer] Norepinephrine/Dextrose 8 mg in 250 mls @ 6.785 mls/hr 05/16/25 17:49 05/18/25 14:16 Levophed In D5w 8mg/250ml IV 06/15/25 17:48 0.32 mcg/kg/min .Q24H PRN 43.426 mls/hr PER PROTOCOL Titration Protocol 0.05 MCG/KG/MIN Metronidazole 500 mg in 100 mls @ 200 mls/hr 05/16/25 22:00 05/18/25 14:06 Flagyl 500 Mg Iv IV 05/23/25 21:59 Infused Q8HR JESSICA Infusion Acetaminophen 1,000 mg in 100 mls @ 250 mls/hr 05/16/25 20:37 05/17/25 04:00 Ofirmev Inj IV 05/19/25 20:36 Infused Q6H PRN Infusion fever >99.9 Vasopressin/Sodium Chloride 20 unit in 100 mls @ 9 mls/hr 05/17/25 00:58 05/18/25 04:53 Vasostrict/Ns Ivpb IV 06/16/25 00:57 0.03 unit/min .Q11H7M PRN 9 mls/hr PER PROTOCOL Administration Protocol 0.03 UNIT/MIN Ciprofloxacin/Dextrose 400 mg in 200 mls @ 200 mls/hr 05/18/25 09:00 05/18/25 09:05 Cipro Ivpb IV 05/25/25 08:59 Infused QDAY JESSICA Infusion Fentanyl Citrate 2,500 mcg in 250 mls @ 2.5 mls/hr 05/17/25 13:34 05/18/25 14:00 Sublimaze Inj 2,500 Mcg/250 Ml Bag IV 05/22/25 13:33 225 mcg/hr .Q24H PRN 22.5 mls/hr PER PROTOCOL Titration Protocol 25 MCG/HR Propofol 1,000 mg in 100 mls @ 2.214 mls/hr 05/17/25 14:19 05/18/25 14:00 Diprivan Ivpb IV 06/16/25 14:18 15 mcg/kg/min .Q24H PRN 6.642 mls/hr PER PROTOCOL Titration Protocol 5 MCG/KG/MIN Albumin Human 25 gm in 100 mls @ 100 mls/hr 05/17/25 21:46 05/18/25 09:05 Albuminex 25% Ivpb IV 06/16/25 21:45 Infused QDAY JESSICA Infusion Ondansetron HCl 4 mg 05/16/25 18:34 05/17/25 09:51 Ondansetron Inj 2 Mg/Ml Inj 2 Ml IVP 06/15/25 18:33 4 mg Q6H PRN Administration NAUSEA OR VOMITING Protocol Pantoprazole Sodium 40 mg 05/17/25 09:00 05/18/25 08:06 Pantoprazole Inj 40 Mg Vial IVP 06/16/25 08:59 40 mg QDAY JESSICA Administration Pharmacy Consult 1 each 05/16/25 16:37 Pharmacy Renal Dose Adjustment 1 Ea XX 06/15/25 16:36 PRN PRN CONSULT Plan 70-year-old female with history of nephrolithiasis (s/p bilateral nephrostomy tubes Sep 2024), endometrial cancer in remission, T2DM, and chronic anemia presenting with severe abdominal pain, vomiting, fever, and chills, found to have acute sigmoid diverticulitis with localized perforation and sepsis requiring ICU admission. Neurology #Chemical sedation Treatment Plan: - Propofol and Fentanyl with a RASS score goal of -2. Cardiovascular #Septic shock, likely secondary to #Perforated sigmoid diverticulitis with feculent peritonitis DDx: septic shock (distributive) vs hypovolemia vs cardiogenic shock. Likely due to distributive shock from sepsis. Lactate > 2 despite adequate IV fluids (30 mL/kg). No evidence of cardiogenic component at this time. Diagnostic Test: - Met 3/4 SIRS criteria on admission: T 101.1F, RR 31, WBC 16.3. - qSOFA score of 2 (RR 31 and SBP 84). - Confirmed or suspected infection: ruptured diverticulitis. - CT abd/pelvis: diverticulitis of large intestine with perforation. - End organ damage: WARREN due to sepsis: baseline Cr 0.8-1.3. Cr 2.3 on this admission. - Lactic acidosis due to sepsis: lactic acid level of 4.8 on admission. - Troponin < 0.002. - BP 84/58 on admission. - Echo ordered Treatment Review (completed) - Fluids: 30 mL/kg given in the ED. - S/p exploratory laparotomy, sigmoid colectomy with end descending colostomy and hysterectomy on 05/17. Treatment Plan: - Ciprofloxacin 400mg in 200mls IV Q12H (05/16-). - Metronidazole 500mg in 100mls IV Q8H (05/16-). - Trend lactate. - Urine culture pending. - Blood culture pending. - Strict I&O. - Continue Norepinephrine 8mg, titrate to maintain MAP > 65. - Started Vasopressin 20 units in 100 mls at 0.03 units/min. Respiratory #Intubation to protect airway Patient intubated during surgical procedure, remains intubated and sedated. Treatment plan: - Ventilator AC VC, tidal volume 440, respiratory rate 22, PEEP 5, FiO2 35 - Will work on weaning down sedation, plan for extubation when stable #History of COPD Diagnostic Test: - No cardinal symptoms of COPD exacerbation such as increase sputum purulence or volume, or increase dyspnea. - VBG 05/16 12:11 showed pH 7.26, pCO2 36 - VBG 05/16 18:26 showed pH 7.36, pCO2 32 - ABG 05/16 19:18 showed pH 7.41, pCO2 29, pO2 82, HCO3 18 - CXR 05/16: Significant left base pneumonia. Treatment Plan: - Monitor O2 saturation and respiratory effort. - No steroids or bronchodilators unless COPD exacerbation evident. GI, , F/E/N #Perforated sigmoid diverticulitis with feculent peritonitis S/p exploratory laparotomy, sigmoid colectomy with end descending colostomy and hysterectomy on 05/17. Diagnostic Test: - CT abd/pelvis: acute sigmoid diverticulitis with localized rupture of diverticula and mild pelvic pneumoperitoneum. - Surgery findings: inflamed and thickened sigmoid with large perforation and feculent peritonitis. Inflamed and necrotic appearing uterus. Very thin anterior abdominal fascia with evidence of multiple mesh placements from prior operations. Treatment Plan: - General surgery following, appreciate recommendations. - Monitor WBC, lactate. - Ciprofloxacin 400mg in 200mls IV Q12H (05/16-). - Metronidazole 500mg in 100mls IV Q8H (05/16-). - Ondansetron 4mg IV Q6H PRN for nausea. - Consider starting trickle feeds and consultation with surgery, when pressor requirements decrease. - Holding chemical DVT prophylaxis #History of endometrial cancer Treatment Plan: - Being followed with Rad/Onc in [place]. Renal #Anion gap metabolic acidosis with compensated respiratory alkalosis #Lactic acidosis DDx: uremia vs lactic acidosis Diagnostic Test: - VBG 05/16 at 12:00pm: pH 7.26, pCO2 36, CMP bicarb 15.8. Albumin 3.2. - Albumin corrected anion gap: 19.2. - Expected pCO2 compensation 30-34 using winter's formula. Actual pCO2 31. Respiratory alkalosis compensation. Tachypnea on exam. - Patient continued to have worsening acidosis, no urine output, nephrology consulted Treatment Plan: - Monitor serial lactate levels to ensure downtrend. - Monitor renal function and urine output. - No need for bicarbonate therapy at this time. - Continue IV fluids as needed based on volume status and lactate trend. - Tablo dialysis per nephrology consult #Acute kidney injury #Anuria DDx: hypoperfusion vs sepsis vs obstrutive component from nephrostomy tubes vs anuria. Patient has not had any urine output to nephrostomy bag. Diagnostic Test: - Baseline Cr: 0.8-1.3. - Cr 2.3 on admission. - CT abd/pelvis: Bilateral nephrostomy ureteral catheter. -05/18: BUN 40, creatinine 2.5, eGFR 20. Treatment Plan: - Daily renal panel to trend Cr. - Avoid nephrotoxins. - Renally dose meds as appropriate. - Strict I&Os, monitor urine output closely. - Monitor for signs of volume overload or uremic symptoms. - Per nephrology recs - flush nephrostomy tube and continue IV fluids to help with urine output. #Hematuria Diagnostic Test: - UA: RBC 54. Treatment Plan: - Follow-up outpatient with urology to work-up hematuria. #Obstrutive nephrolithiasis s/p nephrostomy tube Treatment Plan: - Continue with nephrostomy tube. - Monitor urine output. Heme #Normocytic anemia DDx: anemia of chronic disease vs iron-deficiency anemia vs reactive. Diagnostic Test: - Hemoglobin 10.2 --> 9.4. Treatment Review (completed). - 2 units of pRBCs were transfused after surgery on 05/17. Treatment Plan: - Type and screen. - Monitor H&H. - Transfusing for Hgb <7 or symptomatic. - Held heparin subcutaneous for DVT PPX, SCD. Confirm with general surgery before restarting heparin. #Thrombocyopenia DDx: Consumptive Diagnostic Test: - Plt 602 on admission. - Plt 419 on 05/17, 106 on 05/18 - Suspect consumptive in setting of significant open abdominal surgery Treatment Plan: - Monitor platelets. #Leukocytosis DDx: reactive vs URI vs pneumonia Diagnostic Test: . - WBC: 14.6 --> 16.3 --> 17.3. Treatment Plan - Continue to treat UTI with ciprofloxacin. Endo #Noninsulin dependent T2DM Diagnostic Test: - Hemoglobin A1c on 05/12/2025 was 5.2. - Blood glucose 154 on admission. Treatment Plan: - Continue to check blood glucose levels. - Will start insulin if need better glycemic control. ID #Urinary tract infection Diagnostic Test: - Urinalysis: blood 2+, RBC 54, WBC 1069, bacteria 4+, positive leukocyte esterase. - Patient has history of positive UAs. - 10/31/24 urine culture: Klebsiella. Treatment Plan: - Ciprofloxacin 400mg in 200mls IV Q12H (05/16-). - Urine culture pending. Health Maintenance: DVT prophylaxis: SCDs GI prophylaxis: Pantoprazole 40 mg IV daily Diet: NPO Bal: none Lines: left IJ central line, right IJ dialysis cath, left femoral arterial line Drips: Levophed , Vasopressin, propofol, fentanyl Vent: AC CODE STATUS: FULL CODE Patient discussed with attending, Dr. Coker. Tim Anguiano MD PGY?2 Attending Provider Attestation/Addendum Patient seen and examined with the above resident, Bernabe Anguiano MD. I agree with the findings, assessment, and plan of care as documented except for any differences below. Patient with continued septic shock. Pressor requirements increased overnight in setting of renal failure and metabolic acidosis. Dialysis catheter placed by residents this AM and proceed with AUTOMATIC EDGER using Tablo. Patient remains on stable pressors with initiation of therapy. Art line clotted and guidewire utilized to recannulate. Patient afebrile and tachycardia improved. Adequate volume resuscitation done. Remains on vasopressin now as well. Patient remains on sedation, deasily arousable and grossly intact neurologically. Patient on lung protective settings. SCDs in place, reassess ability to start chemical prophylaxis form surgical perspective. Not a candidate for enteral nutrition due to high vasopressor requirements. Monitor cell counts for now. Transfuse to keep PLT>20K and hemoglobin >7. Patient's son updated by telephone. Total critical care time: I personally spent 45 minutes for review of physiologic parameters, directing plan of care, and coordination of care with other specialists. This is exclusive of time spent teaching housestaff or performing any separate billable procedures. Patient remains at significant risk for further morbidity and mortality warranting close monitoring and care only available in the ICU. Critical care services required for acute respiratory failure, septic shock, viscus perforation 2/2 diverticulitis, and acute renal failure.
[2025-05-18] MEDS: PROPOFOL 1,000 MG IVPB 1,000 MG/100 ML VIAL 6.642 MG IV (14:50)
--- NOTE | 2025-05-18 15:00 | PC.SS ---
Patient's son, Tim Hughes, confirmed that patient came from home not SNF.
[2025-05-18 15:42] LABS: Lactate (Lactic Acid) 1.5 mMol/L (0.4-2.0)
--- NOTE | 2025-05-18 16:00 | PC.SS ---
Update: Patient is intubated/sedated. Patient receiving pressor support. Patient receiving IV antibiotics. Patient in possession of bi-lateral nephrostomy tubes. Patient receiving dialysis today.
--- NOTE | 2025-05-18 16:39 | PC.NURSE ---
Upon moving the patient at 1244 the patient opened her eyes and sat up independently while sedation was on. Sedation increased and MD notified of the patients mentation.
--- NOTE | 2025-05-18 16:53 | ECHO_ITS ---
Transthoracic Echo Report Ht (in): 61 Wt (lb): 172 Exam Location: Echo Lab Status: Inpatient Cyber Analyst: Hannah Simon Indications: Procedure Performed: BP: 126 / 57 HR: 65 Technical Quality: Technically difficult study MEASUREMENTS (Male / Female) Normal Values 2D ECHO LV Diastolic Diameter PLAX 3.7 cm 4.2 - 5.9 / 3.9 - 5.3 cm LV Systolic Diameter PLAX 2.6 cm IVS Diastolic Thickness 1.0 cm 0.6 - 1.0 / 0.6 - 0.9 cm LVPW Diastolic Thickness 0.9 cm 0.6 - 1.0 / 0.6 - 0.9 cm LV Relative Wall Thickness 0.5 LVOT Diameter 1.6 cm Aortic Root Diameter 3.4 cm LV Ejection Fraction MOD BP 56.3 % >= 55 % LV Cardiac Index MOD BP 1163.8 cm?/min?m? LV Ejection Fraction MOD 4C 59.8 % LV Cardiac Index MOD 4C 1505.3 cm?/min?m? LV Ejection Fraction 4C AL 61.0 % LV Cardiac Index 4C AL 1602.9 cm?/min?m? LV Ejection Fraction MOD 2C 49.7 % LV Cardiac Index MOD 2C 777.0 cm?/min?m? LV Ejection Fraction 2C AL 51.7 % LV Cardiac Index 2C AL 818.9 cm?/min?m? LA Volume Index 16.0 cm?/m? 16 - 28 cm?/m? M-MODE Aortic Root Diameter MM 3.1 cm LA Systolic Diameter MM 3.5 cm LA Ao Ratio MM 1.1 AV Cusp Separation MM 2.5 cm DOPPLER AV Peak Velocity 94.7 cm/s AV Peak Gradient 3.6 mmHg AV Mean Gradient 2.0 mmHg AV Velocity Time Integral 17.2 cm LVOT Peak Velocity 93.8 cm/s LVOT Peak Gradient 3.5 mmHg LVOT Velocity Time Integral 15.6 cm LVOT Cardiac Index 1092.9 cm?/min?m? AV Area Cont Eq vti 1.8 cm? AV Area Cont Eq pk 2.0 cm? MV Area PHT 3.1 cm? MR Peak Velocity 554.0 cm/s MR Peak Gradient 122.8 mmHg Mitral E Point Velocity 50.0 cm/s Mitral A Point Velocity 74.2 cm/s Mitral E to A Ratio 0.7 LV E' Lateral Velocity 8.4 cm/s Mitral E to LV E' Lateral Ratio 6.0 LV E' Septal Velocity 5.3 cm/s Mitral E to LV E' Septal Ratio 9.4 TR Peak Velocity 246.0 cm/s TR Peak Gradient 24.2 mmHg PV Peak Velocity 99.1 cm/s PV Peak Gradient 3.9 mmHg FINDINGS Left Ventricle Normal left ventricular size, wall thickness, systolic function with no obvious regional wall motion abnormalities. There is grade I diastolic dysfunction of the left ventricle (impaired relaxation pattern). The ejection fraction is visually estimated at 55-60%. Right Ventricle The right ventricle is normal in size and systolic function. Left Atrium The left atrium is normal by two-dimensional, color flow and Doppler imaging with no structural abnormalities, no thrombus formation present. Right Atrium The right atrium is normal by two-dimensional imaging, color flow and Doppler imaging with no structural abnormalities, no thrombus formation present. Atrial Septum The interatrial septum appears normal with no evidence of a shunt. Aorta The aorta is normal by two-dimensional, color flow and Doppler interrogation. Mitral Valve The mitral valve is normal by two-dimensional, color flow and Doppler interrogation. [id number] mitral regurgitation. Aortic Valve The aortic valve is trileaflet and normal by two-dimensional, color flow and Doppler interrogation. There is no significant aortic valve regurgitation. Tricuspid Valve There is mild tricuspid valve regurgitation. Pulmonic Valve The pulmonic valve is not well visualized. There is no significant pulmonic valve regurgitation. Vessels Inferior vena cava not well visualized. Pericardium There is a small pericardial effusion. CONCLUSIONS Indication: Shock high pressor requirements Normal LV size, wall thickness. Estimated LVEF at 60%. The RV is normal in size and systolic function. Mild mitral regurgitation Mild tricuspid regurgitation. Teena Ellis (Electronically Signed) Final Date: 19 May 2025 12:19
[2025-05-18] MEDS: fentaNYL 2,500 MCG/250 ML BAG 2,500 MCG/250 ML BAG 22.5 MCG IV (17:14)
[2025-05-18 20:03] LABS: Albumin, Serum 3.0 gm/dL (3.4-4.8); Anion Gap 12 (7-16); BUN/Creatinine Ratio 13 Ratio (12-20); Blood Urea Nitrogen 13 mg/dL (9-23); Calcium 8.4 mg/dL (8.3-10.6); Calcium (Corrected) 9.2 mg/dL (8.5-10.1); Carbon Dioxide 26.6 mMol/L (20.0-31.0); Chloride 97 mMol/L (98-107); Creatinine (Component) 1.0 mg/dL (0.6-1.3); Estimated Creatinine Clearance 49.5 mL/min (>60); Glucose 102 mg/dL (74-106); Osmolality,Calculated 272 (275-295); Phosphorous 2.0 mg/dL (2.4-5.1); Potassium 3.1 mMol/L (3.4-5.1); Sodium 136 mMol/L (136-145); eGFR > 60 See Note
[2025-05-18 20:36] LABS: Magnesium 1.6 mg/dL (1.6-2.6)
[2025-05-18] MEDS: POT PHOS 15 mMol in NS 250 ML 15 MMOL/250 ML BAG 62.5 MMOL IV (21:56)
[2025-05-19] VITALS (183 sets, daily range): BP systolic 44–161; BP diastolic 32–76; PULSE 55–149; RESP 13–27; TEMP 36.3–36.8; O2SAT 88–100; BMI 31.5
[2025-05-19] MEDS: PROPOFOL 1,000 MG IVPB 1,000 MG/100 ML VIAL 8.856 MG IV (02:00)
[2025-05-19] MEDS: fentaNYL 2,500 MCG/250 ML BAG 2,500 MCG/250 ML BAG 30 MCG IV (02:00)
[2025-05-19 02:28] LABS: Albumin, Serum 2.6 gm/dL (3.4-4.8); Anion Gap 9 (7-16); BUN/Creatinine Ratio 14 Ratio (12-20); Blood Urea Nitrogen 7 mg/dL (9-23); Calcium 8.6 mg/dL (8.3-10.6); Calcium (Corrected) 9.7 mg/dL (8.5-10.1); Carbon Dioxide 29.3 mMol/L (20.0-31.0); Chloride 99 mMol/L (98-107); Creatinine (Component) 0.5 mg/dL (0.6-1.3); Estimated Creatinine Clearance 99.0 mL/min (>60); Glucose 87 mg/dL (74-106); Osmolality,Calculated 270 (275-295); Phosphorous 2.4 mg/dL (2.4-5.1); Potassium 4.4 mMol/L (3.4-5.1); Sodium 137 mMol/L (136-145); eGFR > 60 See Note
[2025-05-19] MEDS: Norepinephrine/D5W 8mg/250ml 8 MG/250 ML BAG 37.997 MG IV (03:22)
[2025-05-19] MEDS: VASOPRESSIN IN NS IVPB 20 UNIT/100 ML BAG 9 UNIT IV ×2 (04:00→16:55)
[2025-05-19] MEDS: metroNIDAZOLE/NS 500 MG IVPB 500 MG/100 ML BAG 200 MG IV (05:16)
[2025-05-19 07:23] LABS: Base Excess, Venous 10 (-3-3); O2 Saturation, Venous 79 % (96-97); PCO2, Venous 35 mmHg (36-56); PO2, Venous 36 mmHg (15-58); pH, Venous 7.57 (7.33-7.66)
[2025-05-19 07:28] LABS: Basophils # (Auto) 0.1 Thou/mm3 (0.0-0.2); Basophils % (Auto) 1 % (0-2.5); Eosinophils # (Auto) 0.0 Thou/mm3 (0.0-0.5); Eosinophils % (Auto) 0 % (0-10); Hematocrit 27.5 % (36.0-46.0); Hemoglobin 9.2 g/dL (12.0-16.0); Immature Granulocytes Auto 0.32 Thou/mm3 (0.00-0.00); Lymphocytes # (Auto) 0.4 Thou/mm3 (1.0-4.8); Lymphocytes % (Auto) 3 % (10-50); Mean Corpuscular HGB Conc 33.5 g/dl (31.0-37.0); Mean Corpuscular Hemoglobin 27.7 pg (25.0-35.0); Mean Corpuscular Volume 83 fL (80-100); Monocytes # (Auto) 0.3 Thou/mm3 (0.0-0.8); Monocytes % (Auto) 2 % (0-12); Neutrophils # (Auto) 12.6 Thou/mm3 (1.8-7.7); Neutrophils % (Auto) 92 % (37-80); Nucleated Red Blood Cell # 0.00 Thou/mm3 (0.00-0.00); Nucleated Red Blood Cell % 0 /100 WBC (0); RDW Standard Deviation 49.0 fL (36.4-46.3); Red Blood Count 3.32 Miln/mm3 (4.00-5.20); White Blood Count 13.7 Thou/mm3 (3.6-11.0)
--- NOTE | 2025-05-19 07:34 | ESPR_ITS ---
Documentation for date of: 05/19/25 Subjective Subjective Interval history: No fever overnight. Minimal outpt form ostomy, mostly red/ serous. Chucks remain dry, no UOP. No tomlinson in place. Nephrostomy tubes flushed with minimal output. Patient remains on levophed at 0.3 mcg/kg/min and vasopressin. Patient spontaneously opening eys with sedation slowly tapered overnight, bradycardia to 52- remained SB. About to complete wojciech round of Tablo, plan fo shaggy hour break penidng input form nephrology. Alkalotic on AM labs. Critical Care Note Critical care time (min.): 40 Exam Vital Signs Temp Pulse Resp BP Pulse Ox O2 Del Method O2 Flow Rate 97.6 F 88 22 H 118/57 L 100 Mechanical Ventilation 2 05/19/25 06:01 05/19/25 07:30 05/18/25 13:10 05/19/25 07:30 05/19/25 07:01 05/18/25 16:00 05/16/25 15:14 FiO2 35 05/19/25 06:23 Narrative Exam GEN: NAD, awakens and responds with nodding appropriately HEENT: ETT in place, 20 cm at teeth NECK: bilateral CVC sites C/D/I CHEST: symmetric rise, PPeak 25 on vent PULM: CTA bilaterally CVS: S1/S2+ RRR, no R/M/G ABD: No BS, tender to touch, soft/ no rebound, midline incision under bandage, no oking, ostomy LLQ with miniaml output : No tomlinson, nephrostomy drains in plac eiwth simple yellow urine EXT: warm, pedal edema bilaterally/ symmetric, left groin no swelling/ hematoma at A-line site; right groin with bruising/ no tenderness, normal pulse NEURO: grossly moving all limbs, nodding appropriately Physical Exam Completion Physical Exam Complete?: Yes Objective - Key Punch Operator Labs 05/18/25 04:20 05/19/25 01:48 Labs: Laboratory Results - last 24 hr 05/16/25 05/18/25 05/18/25 15:55 06:47 10:55 VBG pH VBG pCO2 VBG pO2 VBG O2 Sat (Miriam) VBG Base Excess Sodium Potassium Chloride Carbon Dioxide Anion Gap BUN Creatinine Estim Creat Clear Calc eGFR BUN/Creatinine Ratio Glucose Calculated Osmolality Lactic Acid 3.0 H 3.2 H Calcium Corrected Calcium Phosphorus Magnesium Albumin Ur Collection Type Catheter Urine Color Yellow Urine Clarity Turbid A Urine pH 6.0 Ur Specific [place] 1.021 Urine Protein 1+ A Urine Glucose (UA) Negative Urine Ketones Negative Urine Blood 2+ A Urine Nitrite Negative Urine Bilirubin Negative Urine Urobilinogen (Auto) Negative Ur Leukocyte Esterase Positive Urine RBC 54 H Urine WBC 1069 H Ur Squamous Epith Cells < 1 Uric Acid Crystals Rare Urine Bacteria 4+ A Hyaline Casts < 1 Ur Culture Indicated? Yes 05/18/25 05/18/25 05/18/25 12:10 15:30 19:33 VBG pH 7.23 L VBG pCO2 35 L VBG pO2 173 H D VBG O2 Sat (Miriam) 98 H VBG Base Excess -12 L Sodium 136 Potassium 3.1 L D Chloride 97 L Carbon Dioxide 26.6 Anion Gap 12 BUN 13 Creatinine 1.0 D Estim Creat Clear Calc 49.5 L eGFR > 60 BUN/Creatinine Ratio 13 Glucose 102 Calculated Osmolality 272 L Lactic Acid 1.5 Calcium 8.4 Corrected Calcium 9.2 Phosphorus 2.0 L Magnesium 1.6 Albumin 3.0 L Ur Collection Type Urine Color Urine Clarity Urine pH Ur Specific [place] Urine Protein Urine Glucose (UA) Urine Ketones Urine Blood Urine Nitrite Urine Bilirubin Urine Urobilinogen (Auto) Ur Leukocyte Esterase Urine RBC Urine WBC Ur Squamous Epith Cells Uric Acid Crystals Urine Bacteria Hyaline Casts Ur Culture Indicated? 05/19/25 05/19/25 01:48 07:13 VBG pH 7.57 VBG pCO2 35 L VBG pO2 36 D VBG O2 Sat (Miriam) 79 L VBG Base Excess 10 H Sodium 137 Potassium 4.4 D Chloride 99 Carbon Dioxide 29.3 Anion Gap 9 BUN 7 L Creatinine 0.5 L D Estim Creat Clear Calc 99.0 eGFR > 60 BUN/Creatinine Ratio 14 Glucose 87 Calculated Osmolality 270 L Lactic Acid Calcium 8.6 Corrected Calcium 9.7 Phosphorus 2.4 Magnesium Albumin 2.6 L Ur Collection Type Urine Color Urine Clarity Urine pH Ur Specific [place] Urine Protein Urine Glucose (UA) Urine Ketones Urine Blood Urine Nitrite Urine Bilirubin Urine Urobilinogen (Auto) Ur Leukocyte Esterase Urine RBC Urine WBC Ur Squamous Epith Cells Uric Acid Crystals Urine Bacteria Hyaline Casts Ur Culture Indicated? Assessment & Plan Problem List (1) Diverticulitis of large intestine with perforation without abscess or bleeding: Status: Acute Additional Plan Additional Plan: 70-year-old female with history of nephrolithiasis (s/p bilateral nephrostomy tubes Sep 2024), endometrial cancer in remission, T2DM, and chronic anemia presenting with severe abdominal pain, vomiting, fever, and chills, found to have acute sigmoid diverticulitis with localized perforation and sepsis requiring ICU admission. Neurology #Chemical sedation Treatment Plan: - Propofol and Fentanyl with a RASS score goal of -2. Wean off propofol. Minimize opiate due to gut immotility. Cardiovascular #Septic shock, likely secondary to #Perforated sigmoid diverticulitis with feculent peritonitis DDx: septic shock (distributive) vs hypovolemia vs cardiogenic shock. Likely due to distributive shock from sepsis. Lactate > 2 despite adequate IV fluids (30 mL/kg). Check central saturation to correlate. No evidence of cardiogenic component at this time. Diagnostic Test: - Met 3/4 SIRS criteria on admission: T 101.1F, RR 31, WBC 16.3. - qSOFA score of 2 (RR 31 and SBP 84). - Confirmed or suspected infection: ruptured diverticulitis. - CT abd/pelvis: diverticulitis of large intestine with perforation. - End organ damage: WARREN due to sepsis: baseline Cr 0.8-1.3. Cr 2.3 on this admission. - Lactic acidosis due to sepsis: lactic acid level of 4.8 on admission. - Troponin < 0.002. - BP 84/58 on admission. - Echo ordered Treatment Review (completed) - Fluids: 30 mL/kg given in the ED. - S/p exploratory laparotomy, sigmoid colectomy with end descending colostomy and hysterectomy on 05/17. Treatment Plan: - Ciprofloxacin 400mg in 200mls IV Q12H (05/16-05/19) - Metronidazole 500mg in 100mls IV Q8H (05/16-05/19) - MDR Ecoli in urine, switched to Zosyn - Poor clearance now due to renal failure. AM LA <2 now. MAP>65. - Urine culture- MDR Ecoli - Blood culture NGTD. - Strict I&O. - Continue Norepinephrine 30mg, titrate to maintain MAP > 65. - Continue Vasopressin 20 units in 100 mls at 0.03 units/min. - No stress dose steroids for now, if unable to wean pressors Respiratory #Acute respiratory failure, post-op Patient intubated during surgical procedure, remains intubated and sedated. Treatment plan: - Ventilator AC VC, tidal volume 440, respiratory rate 15, PEEP 5, FiO2 35 RR dropped this AM due to alkalosis with ongoing MILIEU TECHNICIAN - Will work on weaning down sedation, plan for extubation when pressors stopped #History of COPD Diagnostic Test: - No cardinal symptoms of COPD exacerbation such as increase sputum purulence or volume, or increase dyspnea. - VBG 05/16 12:11 showed pH 7.26, pCO2 36 - VBG 05/16 18:26 showed pH 7.36, pCO2 32 - ABG 05/16 19:18 showed pH 7.41, pCO2 29, pO2 82, HCO3 18 - CXR 05/16: Significant left base pneumonia. Treatment Plan: - Monitor O2 saturation and respiratory effort. - No steroids or bronchodilators unless COPD exacerbation evident. GI, , F/E/N #Perforated sigmoid diverticulitis with feculent peritonitis S/p exploratory laparotomy, sigmoid colectomy with end descending colostomy and hysterectomy on 05/17. Diagnostic Test: - CT abd/pelvis: acute sigmoid diverticulitis with localized rupture of diverticula and mild pelvic pneumoperitoneum. - Surgery findings: inflamed and thickened sigmoid with large perforation and feculent peritonitis. Inflamed and necrotic appearing uterus. Very thin anterior abdominal fascia with evidence of multiple mesh placements from prior operations. Treatment Plan: - General surgery following, appreciate recommendations. - TF when on low dose vasopressors at discretion of surgical input - Antibiotics as per above - Ondansetron 4mg IV Q6H PRN for nausea. #History of endometrial cancer Treatment Plan: - Being followed with Rad/Onc in [place]. Renal #Anion gap metabolic acidosis with compensated respiratory alkalosis #Lactic acidosis DDx: uremia vs lactic acidosis Diagnostic Test: - Patient continued to have worsening acidosis, no urine output, nephrology consulted Treatment Plan: - Cleared now - Continue on MILIEU TECHNICIAN, will discuss potential for fluid removal - Albumin to facilitate mobilization of third spacing/ hypotension/ weaning pressors #Acute kidney injury #Anuria DDx: hypoperfusion vs sepsis vs obstrutive component from nephrostomy tubes vs anuria. Patient has not had any urine output to nephrostomy bag. Diagnostic Test: - Baseline Cr: 0.8-1.3. - Cr 2.3 on admission. - CT abd/pelvis: Bilateral nephrostomy ureteral catheter. -05/18: BUN 40, creatinine 2.5, eGFR 20. - Started HD 05/19 Treatment Plan: - Daily renal panel to trend Cr. - Avoid nephrotoxins. - Renally dose meds as appropriate. - Strict I&Os, monitor urine output closely. - Continue MILIEU TECHNICIAN with goal -1L/ 24 hours #Hematuria Diagnostic Test: - UA: RBC 54. Treatment Plan: - Follow-up outpatient with urology to work-up hematuria. #Obstrutive nephrolithiasis s/p nephrostomy tube Treatment Plan: - Continue with nephrostomy tube. - Monitor urine output. Heme #Normocytic anemia DDx: anemia of chronic disease vs iron-deficiency anemia vs reactive. Diagnostic Test: - Hemoglobin 10.2 --> 9.4-->9.2 Treatment Review (completed). - 2 units of pRBCs were transfused after surgery on 05/17. Treatment Plan: - Type and screen. - Monitor H&H. - Transfusing for Hgb <7 or symptomatic. - Held heparin subcutaneous for DVT PPX, SCD. Confirm with general surgery before restarting heparin. #Thrombocyopenia DDx: Consumptive Diagnostic Test: - Plt 602 on admission. - Plt 419 on 05/17, 106 on 05/18 - Plt 11 05/19 - Suspect consumptive in setting of significant open abdominal surgery Treatment Plan: - Monitor platelets, transfuse to keep > 10k, >20k for invasive procedures #Leukocytosis DDx: reactive vs URI vs pneumonia Diagnostic Test: . - WBC: 14.6 --> 16.3 --> 17.3--> 13.7 Treatment Plan - Continue to treat UTI/ intrabdominal infection with Zosyn Endo #Noninsulin dependent T2DM Diagnostic Test: - Hemoglobin A1c on 05/12/2025 was 5.2. - Blood glucose 154 on admission. - Glucose at goal <180 Treatment Plan: - Continue to check blood glucose levels. - Will start insulin if need better glycemic control. ID #Urinary tract infection Diagnostic Test: - Urinalysis: blood 2+, RBC 54, WBC 1069, bacteria 4+, positive leukocyte esterase. - Patient has history of positive UAs. - 10/31/24 urine culture: Klebsiella. Treatment Plan: - Ciprofloxacin 400mg in 200mls IV Q12H (05/16-). - Zosyn dosing per pharmacy - Urine culture- E. Coli Health Maintenance: DVT prophylaxis: SCDs, not appropriate for chemcial prophylaxis due to PLT <50k GI prophylaxis: Pantoprazole 40 mg IV daily Diet: NPO Tomlinson: none Lines: left IJ central line, right IJ dialysis cath, left femoral arterial line Drips: Levophed , Vasopressin, propofol, fentanyl Vent: AC CODE STATUS: FULL CODE Provider Notation Provider Notation: Although this document has been carefully reviewed, there may still be some phonetic and other typographical errors. These errors are purely grammatical due to imperfections in the software program and should not be construed in any way to compromise the substance of the patient's medical care during this visit. Thank you for the opportunity and privilege in assisting you with this patient's care and management.
[2025-05-19 07:56] LABS: Platelet Count 11 Thou/mm3 (140-440)
[2025-05-19 07:57] LABS: Slide Review Platelets confirmed
[2025-05-19 08:00] LABS: Alanine Aminotransferase 8 U/L (10-49); Albumin, Serum 2.6 gm/dL (3.4-4.8); Albumin/Globulin Ratio 1.6 (1.2-2.2); Alkaline Phosphatase 207 U/L (46-116); Anion Gap 8 (7-16); Aspartate Amino Transferase 65 U/L (0-34); BUN/Creatinine Ratio 13 Ratio (12-20); Bilirubin,Total 0.6 mg/dL (0.3-1.2); Blood Urea Nitrogen < 5 mg/dL (9-23); Calcium 8.7 mg/dL (8.3-10.6); Calcium (Corrected) 9.8 mg/dL (8.5-10.1); Carbon Dioxide 30.8 mMol/L (20.0-31.0); Chloride 98 mMol/L (98-107); Creatinine (Component) 0.4 mg/dL (0.6-1.3); Estimated Creatinine Clearance 123.5 mL/min (>60); Globulin 1.6 gm/dL (2.3-3.5); Glucose 86 mg/dL (74-106); Magnesium 1.6 mg/dL (1.6-2.6); Osmolality,Calculated 270 (275-295); Phosphorous 1.6 mg/dL (2.4-5.1); Potassium 3.8 mMol/L (3.4-5.1); Sodium 137 mMol/L (136-145); Total Protein 4.2 gm/dL (5.7-8.2); eGFR > 60 See Note
[2025-05-19 09:01] LABS: Path Review Blood Smear Sent to Pathologist
[2025-05-19] MEDS: ALBUMIN HUMAN-KJDA 25% IVPB 25 GM/100 ML BTL IV ×3 (09:11→21:03)
[2025-05-19] MEDS: PIPER/TAZO 3.375 GM PREMIX 3.375 GM/50 ML BAG IV ×3 (09:12→21:04)
--- NOTE | 2025-05-19 10:16 | EKG_ITS ---
[facility] Test Date: 2025-05-19 Pat Name: SUSAN THOMAS Department: Room: S257-A Gender: Female Director Of Media: KASHIF : 1955 Requested By: Yeison Coker I Order Number: [id number] Reading MD: Yeison Coker I Measurements Intervals [place] Rate: 139 P: 105 [place]: 138 QRS: -5 QRSD: 88 T: 58 QT: 314 QTc: 478 Interpretive Statements SINUS TACHYCARDIA LOW QRS VOLTAGE IN EXTREMITY LEADS PATTERN CONSISTENT WITH PULMONARY DISEASE POSSIBLE INFERIOR MYOCARDIAL INFARCTION , PROBABLY OLD Compared to ECG 05/17/2025 14:25:47 Atrial flutter no longer present Myocardial infarct finding still present /[id number]/[id number]
[2025-05-19] MEDS: fentaNYL CIT INJ 50 mCg/ML AMP 2ML 100 MCG IVP (10:17)
[2025-05-19] MEDS: Norepinephrine/D5W 8mg/250ml 8 MG/250 ML BAG 48.854 MG IV (10:23)
[2025-05-19] MEDS: HYDROCORTISONE SOD SUCC INJ 100 MG 2 ML VIAL IV (10:26)
[2025-05-19] MEDS: SODIUM CHLORIDE 0.9% 500 ML 500 ML 999 ML IV (10:27)
--- NOTE | 2025-05-19 11:21 | ESPR_ITS ---
Documentation for date of: 05/19/25 Subjective Subjective Interval history: Reason for consult: Oliguria/Anuria - WARREN in ICU patient post-septic shock and exploratory lap History of present illness: 70-year-old female with a history of nephrolithiasis (s/p bilateral nephrostomy tubes placed Sep 2024), endometrial cancer in remission, type 2 diabetes mellitus, chronic anemia, and COPD, admitted with perforated sigmoid diverticulitis and feculent peritonitis. She underwent exploratory laparotomy, sigmoid colectomy with end descending colostomy, and hysterectomy on 05/17. Nephrology was re-consulted today for no urine output. Overnight urine output was 50 cc total, despite adequate fluid resuscitation and pressor support (on norepinephrine and vasopressin). Patient remains in the ICU, intubated and sedated on propofol/fentanyl, receiving broad-spectrum antibiotics (ciprofloxacin + metronidazole). 05/18/2025: Patient seen in ICU during morning rounds. Intubated, sedated, on vasopressor support. No urine output noted from nephrostomy tubes or Bal. Nursing reports total 50 cc output overnight. No new fevers reported. BP 112/57 mmHg, HR 82. Labs: WBC 18.6, Hgb 10.4, Hct 31.6, Plt 106 (yesterday 419), Na 136, K 5.4, Cl 108, CO2 13.4, BUN 40, Cr 2.5 (GFR 20), Ca 8.8, Phos 6.0, Mg 2.1, Albumin 2.7, Alk Phos 176, Lactic acid 3.0->3.2. ABG: pH 7.30, pCO2 32, HCO3 13. 05/19/2025 patient currently seen in ICU. On CRRT. On ventilator. Patient more alert and awake. No urine output from nephrostomy tubes or Bal. She had a sigmoid resection and colostomy with minimal stool. Labs, medications reviewed. Will continue with CRRT for next [address] Coker who is at bedside. Review of Systems Review of Systems ROS Unobtainable: unobtainable due to medical condition and due to endotracheal tube Exam Vital Signs Temp Pulse Resp BP Pulse Ox O2 Del Method O2 Flow Rate 36.3 C 128 H 22 H 112/42 L 98 Mechanical Ventilation 2 05/19/25 08:00 05/19/25 10:45 05/18/25 13:10 10/17/25 10:45 05/19/25 10:00 05/18/25 16:00 05/16/25 15:14 FiO2 35 05/19/25 10:00 Narrative Exam General: Sedated, intubated, appears critically ill. CV: Regular rate and rhythm, no murmurs, no JVD. Resp: Intubated, clear to auscultation bilaterally, ventilated breath sounds equal. Abdomen: Post-op midline dressing clean/dry/intact; colostomy bag in place. : Bilateral nephrostomy tubes present but no drainage noted. Bal with scant winter urine (~50 cc overnight). Extremities: No edema or cyanosis. Neuro: Sedated. Skin: Warm, no mottling. Objective Labs 05/20/25 04:58 05/20/25 04:58 Labs: Laboratory Results - last 24 hr 05/16/25 05/18/25 05/18/25 15:55 12:10 15:30 WBC RBC Hgb Hct MCV MCH MCHC RDW Std Deviation Plt Count Neut % (Auto) Lymph % (Auto) Warren % (Auto) Eos % (Auto) Baso % (Auto) Neut # (Auto) Lymph # (Auto) Warren # (Auto) Eos # (Auto) Baso # (Auto) Immature Gran # (Auto) Absolute Nucleated RBC Immature Gran % Nucleated RBC % Smear Path Review VBG pH 7.23 L VBG pCO2 35 L VBG pO2 173 H D VBG O2 Sat (Miriam) 98 H VBG Base Excess -12 L Sodium Potassium Chloride Carbon Dioxide Anion Gap BUN Creatinine Estim Creat Clear Calc eGFR BUN/Creatinine Ratio Glucose Calculated Osmolality Lactic Acid 1.5 Calcium Corrected Calcium Phosphorus Magnesium Total Bilirubin AST ALT Alkaline Phosphatase Total Protein Albumin Globulin Albumin/Globulin Ratio Ur Collection Type Catheter Urine Color Yellow Urine Clarity Turbid A Urine pH 6.0 Ur Specific [place] 1.021 Urine Protein 1+ A Urine Glucose (UA) Negative Urine Ketones Negative Urine Blood 2+ A Urine Nitrite Negative Urine Bilirubin Negative Urine Urobilinogen (Auto) Negative Ur Leukocyte Esterase Positive Urine RBC 54 H Urine WBC 1069 H Ur Squamous Epith Cells < 1 Uric Acid Crystals Rare Urine Bacteria 4+ A Hyaline Casts < 1 Ur Culture Indicated? Yes Misc Test Result 05/18/25 05/19/25 05/19/25 19:33 01:48 07:13 WBC 13.7 H RBC 3.32 L Hgb 9.2 L Hct 27.5 L MCV 83 MCH 27.7 MCHC 33.5 RDW Std Deviation 49.0 H Plt Count 11 L* D Neut % (Auto) 92 H Lymph % (Auto) 3 L Warren % (Auto) 2 Eos % (Auto) 0 Baso % (Auto) 1 Neut # (Auto) 12.6 H Lymph # (Auto) 0.4 L Warren # (Auto) 0.3 Eos # (Auto) 0.0 Baso # (Auto) 0.1 Immature Gran # (Auto) 0.32 H Absolute Nucleated RBC 0.00 Immature Gran % 2 H Nucleated RBC % 0 Smear Path Review Sent to Pathologist VBG pH 7.57 VBG pCO2 35 L VBG pO2 36 D VBG O2 Sat (Miriam) 79 L VBG Base Excess 10 H Sodium 136 137 137 Potassium 3.1 L D 4.4 D 3.8 D Chloride 97 L 99 98 Carbon Dioxide 26.6 29.3 30.8 Anion Gap 12 9 8 BUN 13 7 L < 5 L Creatinine 1.0 D 0.5 L D 0.4 L Estim Creat Clear Calc 49.5 L 99.0 123.5 eGFR > 60 > 60 > 60 BUN/Creatinine Ratio 13 14 13 Glucose 102 87 86 Calculated Osmolality 272 L 270 L 270 L Lactic Acid Calcium 8.4 8.6 8.7 Corrected Calcium 9.2 9.7 9.8 Phosphorus 2.0 L 2.4 1.6 L Magnesium 1.6 1.6 Total Bilirubin 0.6 AST 65 H ALT 8 L Alkaline Phosphatase 207 H D Total Protein 4.2 L Albumin 3.0 L 2.6 L 2.6 L Globulin 1.6 L Albumin/Globulin Ratio 1.6 Ur Collection Type Urine Color Urine Clarity Urine pH Ur Specific [place] Urine Protein Urine Glucose (UA) Urine Ketones Urine Blood Urine Nitrite Urine Bilirubin Urine Urobilinogen (Auto) Ur Leukocyte Esterase Urine RBC Urine WBC Ur Squamous Epith Cells Uric Acid Crystals Urine Bacteria Hyaline Casts Ur Culture Indicated? Misc Test Result Platelets confirmed 05/19/25 07:15 WBC RBC Hgb Hct MCV MCH MCHC RDW Std Deviation Plt Count Neut % (Auto) Lymph % (Auto) Warren % (Auto) Eos % (Auto) Baso % (Auto) Neut # (Auto) Lymph # (Auto) Warren # (Auto) Eos # (Auto) Baso # (Auto) Immature Gran # (Auto) Absolute Nucleated RBC Immature Gran % Nucleated RBC % Smear Path Review VBG pH VBG pCO2 VBG pO2 VBG O2 Sat (Miriam) VBG Base Excess Sodium Cancelled Potassium Cancelled Chloride Cancelled Carbon Dioxide Cancelled Anion Gap Cancelled BUN Cancelled Creatinine Cancelled Estim Creat Clear Calc Cancelled eGFR Cancelled BUN/Creatinine Ratio Cancelled Glucose Cancelled Calculated Osmolality Cancelled Lactic Acid Calcium Cancelled Corrected Calcium Cancelled Phosphorus Cancelled Magnesium Total Bilirubin AST ALT Alkaline Phosphatase Total Protein Albumin Cancelled Globulin Albumin/Globulin Ratio Ur Collection Type Urine Color Urine Clarity Urine pH Ur Specific [place] Urine Protein Urine Glucose (UA) Urine Ketones Urine Blood Urine Nitrite Urine Bilirubin Urine Urobilinogen (Auto) Ur Leukocyte Esterase Urine RBC Urine WBC Ur Squamous Epith Cells Uric Acid Crystals Urine Bacteria Hyaline Casts Ur Culture Indicated? Misc Test Result ABG Interpretation ABG results: 05/16/25 05/16/25 05/16/25 12:11 18:26 19:18 ABG pH 7.41 ABG pCO2 29 L ABG pO2 86 ABG HCO3 18 L ABG O2 Saturation 96 ABG Base Excess -6 L VBG pH 7.26 L 7.36 VBG pCO2 36 32 L VBG pO2 49 46 VBG Base Excess -10 L -7 L 05/17/25 05/17/25 05/17/25 01:51 01:58 12:35 ABG pH 7.34 L 7.21 L D ABG pCO2 30 L 30 L ABG pO2 92 181 H D ABG HCO3 16 L 12 L ABG O2 Saturation 97 99 H ABG Base Excess -9 L -15 L VBG pH 7.28 L VBG pCO2 37 VBG pO2 60 H VBG Base Excess -9 L 05/17/25 05/17/25 05/18/25 15:12 22:59 04:06 ABG pH 7.17 L* 7.26 L 7.23 L ABG pCO2 32 26 L 32 ABG pO2 343 H D 298 H D 208 H D ABG HCO3 12 L 12 L 13 L ABG O2 Saturation 100 H 100 H 100 H ABG Base Excess -16 L -14 L -13 L VBG pH VBG pCO2 VBG pO2 VBG Base Excess 05/18/25 05/19/25 12:10 07:13 ABG pH ABG pCO2 ABG pO2 ABG HCO3 ABG O2 Saturation ABG Base Excess VBG pH 7.23 L 7.57 VBG pCO2 35 L 35 L VBG pO2 173 H D 36 D VBG Base Excess -12 L 10 H Assessment & Plan Assessment and plan (1) Diverticulitis of large intestine with perforation without abscess or bleeding: Status: Acute Additional Assessment & Plan Additional Plan: 70F with septic shock post-surgery, now anuric with worsening WARREN likely multifactorial (septic ATN ? obstructive from non-draining nephrostomy tubes). Given persistent anuria, rising azotemia, and metabolic acidosis, patient will undergo dialysis today. # Acute Kidney Injury Likely ischemic ATN Patient with anuric WARREN in the setting of septic shock and recent abdominal surgery. Baseline creatinine 0.8?1.3, now 2.5 with urine output <50 cc/24h. Likely multifactorial: ischemic acute tubular necrosis (ATN) from hypotension and sepsis The absence of response to fluids and continued anuria despite adequate perfusion supports intrinsic renal injury. Plan: * Continue with CRRT * Continue daily renal panel and strict I&O. * Avoid nephrotoxins, renally dose antibiotics. * Continue to assess for renal recovery post-dialysis. # Metabolic Acidosis Patient?s acidosis is mixed, both anion gap and non?anion gap metabolic acidosis are present. Bicarb much better # Hypokalemia//hypophosphatemia Plan: * Monitor on telemetry. * Repeat BMP post-dialysis. * 4K dialysate ordered * K-Phos given. # Septic Shock Post-op from perforated diverticulitis, on norepinephrine and vasopressin. Plan: * Continue broad-spectrum antibiotics (Cipro + Flagyl). * Maintain perfusion pressure for renal support. * Trend lactate and hemodynamics throughout dialysis. Other problems: #Diverticulitis of large intestine with perforation (s/p exploratory laparotomy, sigmoid colectomy, colostomy, hysterectomy on 05/17) #Postoperative state (post-surgical, day 1) #Leukocytosis #Normocytic anemia #Thrombocytopenia #Lactic acidosis #Hyponatremia #Presence of nephrostomy tubes bilaterally #Presence of colostomy #Type 2 diabetes mellitus (controlled, A1C 5.2) #COPD #Endometrial cancer, in remission #Mechanical ventilation dependence Patient currently seen on ventilator. In ICU. Hemodynamic instability-on pressors. Urine output very minimal. Noted WARREN, intractable metabolic acidosis, hyperkalemia. Decided to proceed with dialysis. Patient on stable and will be started on CRRT. Vas-Cath placed by ICU team. CRRT-24 hours Blood flow 150-200 Dialysate flow 100 Saline flush 50 to 80 mL/h No heparin Ultrafiltration 1 L Citrasate dialysate 3K 3.5 calcium 40 bicarbonate Renal panel every 6 hours while on CRRT. Care discussed with ICU team. Critical care time spent more than 45 minutes regarding plan of care and disease management. Prognosis remains guarded. Thank you Dr. Coker for allowing me to participate in the care of Ms. Kiser Quality - progress note Quality Measures Quality Measures: VTE prophylaxis Reason for Continued Stay Reason for Continued Stay: further monitoring PROCEDURES: Arterial Line Size (Gauge): 20
[2025-05-19] MEDS: fentaNYL 2,500 MCG/250 ML BAG 2,500 MCG/250 ML BAG 25 MCG IV ×2 (12:09→21:42)
[2025-05-19] MEDS: HYDROCORTISONE SOD SUCC INJ 100 MG 2 ML VIAL 50 MG IV ×3 (12:21→23:05)
[2025-05-19 13:09] LABS: Albumin, Serum 2.7 gm/dL (3.4-4.8); Anion Gap 9 (7-16); BUN/Creatinine Ratio 17 Ratio (12-20); Blood Urea Nitrogen < 5 mg/dL (9-23); Calcium 8.3 mg/dL (8.3-10.6); Calcium (Corrected) 9.3 mg/dL (8.5-10.1); Carbon Dioxide 30.5 mMol/L (20.0-31.0); Chloride 98 mMol/L (98-107); Creatinine (Component) 0.3 mg/dL (0.6-1.3); Estimated Creatinine Clearance 164.7 mL/min (>60); Glucose 101 mg/dL (74-106); Osmolality,Calculated 271 (275-295); Phosphorous 1.6 mg/dL (2.4-5.1); Potassium 3.5 mMol/L (3.4-5.1); Sodium 137 mMol/L (136-145); eGFR > 60 See Note
[2025-05-19] MEDS: Norepinephrine/D5W 8mg/250ml 8 MG/250 ML BAG 59.71 MG IV (14:34)
[2025-05-19] MEDS: POT PHOS 15 mMol in NS 250 ML 15 MMOL/250 ML BAG 62.5 MMOL IV (15:46)
--- NOTE | 2025-05-19 15:50 | PC.SS ---
Update: Patient remains intubated/sedated. Dialysis conducted today. Patient on pressor support. NPO. Dr. Zelaya consulting. Dr. Fuentes consulting.
--- NOTE | 2025-05-19 15:56 | PC.SS ---
FREEZER ASSISTANT conducted phone contact with patient?s son, Tim Hughes; to conduct initial assessment.? Patient currently in ICU on mechanical ventilator.? Patient resides at home with sonTim.? Patient utilizes a walker to assist with ambulation.? Patient does not utilize home oxygen.? Patient requires assistance with completion of ADL?s.? Patient?s surrogate medical decision maker is Tim barahona; .? Patient?s PCP is Dr. Morrell.? Patient is not established with outpatient dialysis.? Patient utilizes [facility] for medication services.? volunteer services supervisor will discuss discharge needs at an appropriate future time.? No further intervention required at this time, social science teacher will be available to address any further concerns.? Next of Kin: Tim Hughes D/C Plan: Pending
[2025-05-19] MEDS: Norepinephrine/D5W 8mg/250ml 8 MG/250 ML BAG 56.996 MG IV (18:50)
[2025-05-19 19:18] LABS: Albumin, Serum 3.1 gm/dL (3.4-4.8); Anion Gap 9 (7-16); BUN/Creatinine Ratio 13 Ratio (12-20); Blood Urea Nitrogen < 5 mg/dL (9-23); Calcium 8.7 mg/dL (8.3-10.6); Calcium (Corrected) 9.4 mg/dL (8.5-10.1); Carbon Dioxide 28.7 mMol/L (20.0-31.0); Chloride 98 mMol/L (98-107); Creatinine (Component) 0.4 mg/dL (0.6-1.3); Estimated Creatinine Clearance 123.5 mL/min (>60); Glucose 94 mg/dL (74-106); Osmolality,Calculated 269 (275-295); Phosphorous 1.4 mg/dL (2.4-5.1); Potassium 4.0 mMol/L (3.4-5.1); Sodium 136 mMol/L (136-145); eGFR > 60 See Note
[2025-05-19] MEDS: Norepinephrine/D5W 8mg/250ml 8 MG/250 ML BAG 51.568 MG IV (23:30)
[2025-05-20] VITALS (158 sets, daily range): BP systolic 48–205; BP diastolic 28–92; PULSE 54–605; RESP 17–29; TEMP 36.4–37.2; O2SAT 92–100
[2025-05-20 01:11] LABS: Albumin, Serum 3.2 gm/dL (3.4-4.8); Anion Gap 11 (7-16); BUN/Creatinine Ratio 17 Ratio (12-20); Blood Urea Nitrogen < 5 mg/dL (9-23); Calcium 8.9 mg/dL (8.3-10.6); Calcium (Corrected) 9.5 mg/dL (8.5-10.1); Carbon Dioxide 29.3 mMol/L (20.0-31.0); Chloride 97 mMol/L (98-107); Creatinine (Component) 0.3 mg/dL (0.6-1.3); Estimated Creatinine Clearance 164.7 mL/min (>60); Glucose 105 mg/dL (74-106); Magnesium 1.6 mg/dL (1.6-2.6); Osmolality,Calculated 271 (275-295); Phosphorous 1.0 mg/dL (2.4-5.1); Potassium 3.8 mMol/L (3.4-5.1); Sodium 137 mMol/L (136-145); eGFR > 60 See Note
[2025-05-20] MEDS: POT PHOS 15 mMol in NS 250 ML 15 MMOL/250 ML BAG 62.5 MMOL IV ×3 (01:49→23:44)
[2025-05-20] MEDS: VASOPRESSIN IN NS IVPB 20 UNIT/100 ML BAG 9 UNIT IV ×2 (03:09→14:16)
[2025-05-20] MEDS: Norepinephrine/D5W 8mg/250ml 8 MG/250 ML BAG 43.426 MG IV (05:00)
[2025-05-20] MEDS: ALBUMIN HUMAN-KJDA 25% IVPB 25 GM/100 ML BTL IV ×3 (05:06→22:27)
[2025-05-20] MEDS: HYDROCORTISONE SOD SUCC INJ 100 MG 2 ML VIAL 50 MG IV ×3 (05:06→17:28)
[2025-05-20] MEDS: PIPER/TAZO 3.375 GM PREMIX 3.375 GM/50 ML BAG IV ×3 (05:07→22:28)
[2025-05-20 06:00] LABS: Basophils # (Auto) 0.0 Thou/mm3 (0.0-0.2); Basophils % (Auto) 0 % (0-2.5); Eosinophils # (Auto) 0.0 Thou/mm3 (0.0-0.5); Eosinophils % (Auto) 0 % (0-10); Hematocrit 23.9 % (36.0-46.0); Immature Granulocytes Auto 0.37 Thou/mm3 (0.00-0.00); Lymphocytes # (Auto) 0.5 Thou/mm3 (1.0-4.8); Lymphocytes % (Auto) 4 % (10-50); Mean Corpuscular HGB Conc 33.9 g/dl (31.0-37.0); Mean Corpuscular Hemoglobin 28.6 pg (25.0-35.0); Mean Corpuscular Volume 85 fL (80-100); Monocytes # (Auto) 0.3 Thou/mm3 (0.0-0.8); Monocytes % (Auto) 2 % (0-12); Neutrophils # (Auto) 11.3 Thou/mm3 (1.8-7.7); Neutrophils % (Auto) 91 % (37-80); Nucleated Red Blood Cell # 0.00 Thou/mm3 (0.00-0.00); Nucleated Red Blood Cell % 0 /100 WBC (0); RDW Standard Deviation 51.5 fL (36.4-46.3); Red Blood Count 2.83 Miln/mm3 (4.00-5.20); White Blood Count 12.4 Thou/mm3 (3.6-11.0)
[2025-05-20] MEDS: fentaNYL 2,500 MCG/250 ML BAG 2,500 MCG/250 ML BAG 30 MCG IV ×3 (06:00→22:40)
[2025-05-20 06:08] LABS: Hemoglobin 8.1 g/dL (12.0-16.0)
[2025-05-20 06:09] LABS: Platelet Count 8 Thou/mm3 (140-440)
[2025-05-20 06:27] LABS: Alanine Aminotransferase 11 U/L (10-49); Albumin, Serum 3.0 gm/dL (3.4-4.8); Albumin/Globulin Ratio 2.1 (1.2-2.2); Alkaline Phosphatase 171 U/L (46-116); Anion Gap 13 (7-16); Aspartate Amino Transferase 39 U/L (0-34); BUN/Creatinine Ratio 25 Ratio (12-20); Bilirubin,Total 0.9 mg/dL (0.3-1.2); Blood Urea Nitrogen < 5 mg/dL (9-23); Calcium 8.7 mg/dL (8.3-10.6); Calcium (Corrected) 9.5 mg/dL (8.5-10.1); Carbon Dioxide 27.2 mMol/L (20.0-31.0); Chloride 97 mMol/L (98-107); Creatinine (Component) 0.2 mg/dL (0.6-1.3); Estimated Creatinine Clearance 254.2 mL/min (>60); Globulin 1.4 gm/dL (2.3-3.5); Glucose 113 mg/dL (74-106); Magnesium 1.8 mg/dL (1.6-2.6); Osmolality,Calculated 272 (275-295); Phosphorous 1.7 mg/dL (2.4-5.1); Potassium 4.2 mMol/L (3.4-5.1); Sodium 137 mMol/L (136-145); Total Protein 4.4 gm/dL (5.7-8.2); eGFR > 60 See Note
--- NOTE | 2025-05-20 07:09 | ESPR_ITS ---
Documentation for date of: 05/20/25 Subjective Subjective Interval history: Reason for consult: Oliguria/Anuria - WARREN in ICU patient post-septic shock and exploratory lap History of present illness: 70-year-old female with a history of nephrolithiasis (s/p bilateral nephrostomy tubes placed Sep 2024), endometrial cancer in remission, type 2 diabetes mellitus, chronic anemia, and COPD, admitted with perforated sigmoid diverticulitis and feculent peritonitis. She underwent exploratory laparotomy, sigmoid colectomy with end descending colostomy, and hysterectomy on 05/17. Nephrology was re-consulted today for no urine output. Overnight urine output was 50 cc total, despite adequate fluid resuscitation and pressor support (on norepinephrine and vasopressin). Patient remains in the ICU, intubated and sedated on propofol/fentanyl, receiving broad-spectrum antibiotics (ciprofloxacin + metronidazole). 05/18/2025: Patient seen in ICU during morning rounds. Intubated, sedated, on vasopressor support. No urine output noted from nephrostomy tubes or Bal. Nursing reports total 50 cc output overnight. No new fevers reported. BP 112/57 mmHg, HR 82. Labs: WBC 18.6, Hgb 10.4, Hct 31.6, Plt 106 (yesterday 419), Na 136, K 5.4, Cl 108, CO2 13.4, BUN 40, Cr 2.5 (GFR 20), Ca 8.8, Phos 6.0, Mg 2.1, Albumin 2.7, Alk Phos 176, Lactic acid 3.0->3.2. ABG: pH 7.30, pCO2 32, HCO3 13. 05/20/2025 patient currently seen in ICU. On CRRT. On ventilator. Patient more alert and awake. No urine output from nephrostomy tubes or Bal. She had a sigmoid resection and colostomy with minimal stool. Labs, medications reviewed. Will continue with CRRT until 4 PM today. Hold tomorrow. Spoke to Dr. Coker who is at bedside. Review of Systems Review of Systems ROS Unobtainable: unobtainable due to medical condition and due to endotracheal tube Exam Vital Signs Temp Pulse Resp BP Pulse Ox O2 Del Method O2 Flow Rate 36.4 C 65 22 H 143/69 H 100 Mechanical Ventilation 2 05/20/25 04:01 05/20/25 07:00 05/19/25 16:05 05/20/25 07:00 05/20/25 07:00 05/20/25 00:01 05/16/25 15:14 FiO2 35 05/20/25 06:40 Narrative Exam General: Sedated, intubated, appears critically ill. CV: Regular rate and rhythm, no murmurs, no JVD. Resp: Intubated, clear to auscultation bilaterally, ventilated breath sounds equal. Abdomen: Post-op midline dressing clean/dry/intact; colostomy bag in place. : Bilateral nephrostomy tubes present but no drainage noted. Bal with scant winter urine (~50 cc overnight). Extremities: No edema or cyanosis. Neuro: Sedated. Skin: Warm, no mottling. Objective Labs 05/21/25 15:43 05/21/25 05:25 Labs: Laboratory Results - last 24 hr 05/19/25 05/19/25 05/19/25 07:13 07:15 12:28 WBC 13.7 H RBC 3.32 L Hgb 9.2 L Hct 27.5 L MCV 83 MCH 27.7 MCHC 33.5 RDW Std Deviation 49.0 H Plt Count 11 L* D Neut % (Auto) 92 H Lymph % (Auto) 3 L [place] % (Auto) 2 Eos % (Auto) 0 Baso % (Auto) 1 Neut # (Auto) 12.6 H Lymph # (Auto) 0.4 L [place] # (Auto) 0.3 Eos # (Auto) 0.0 Baso # (Auto) 0.1 Immature Gran # (Auto) 0.32 H Absolute Nucleated RBC 0.00 Immature Gran % 2 H Nucleated RBC % 0 Smear Path Review Sent to Pathologist VBG pH 7.57 VBG pCO2 35 L VBG pO2 36 D VBG O2 Sat (Miriam) 79 L VBG Base Excess 10 H Sodium 137 Cancelled 137 Potassium 3.8 D Cancelled 3.5 Chloride 98 Cancelled 98 Carbon Dioxide 30.8 Cancelled 30.5 Anion Gap 8 Cancelled 9 BUN < 5 L Cancelled < 5 L Creatinine 0.4 L Cancelled 0.3 L Estim Creat Clear Calc 123.5 Cancelled 164.7 eGFR > 60 Cancelled > 60 BUN/Creatinine Ratio 13 Cancelled 17 Glucose 86 Cancelled 101 Calculated Osmolality 270 L Cancelled 271 L Calcium 8.7 Cancelled 8.3 Corrected Calcium 9.8 Cancelled 9.3 Phosphorus 1.6 L Cancelled 1.6 L Magnesium 1.6 Total Bilirubin 0.6 AST 65 H ALT 8 L Alkaline Phosphatase 207 H D Total Protein 4.2 L Albumin 2.6 L Cancelled 2.7 L Globulin 1.6 L Albumin/Globulin Ratio 1.6 Misc Test Result Platelets confirmed 05/19/25 05/20/25 05/20/25 18:25 00:19 04:58 WBC 12.4 H RBC 2.83 L Hgb 8.1 L Hct 23.9 L MCV 85 MCH 28.6 MCHC 33.9 RDW Std Deviation 51.5 H Plt Count 8 L* D Neut % (Auto) 91 H Lymph % (Auto) 4 L [place] % (Auto) 2 Eos % (Auto) 0 Baso % (Auto) 0 Neut # (Auto) 11.3 H Lymph # (Auto) 0.5 L [place] # (Auto) 0.3 Eos # (Auto) 0.0 Baso # (Auto) 0.0 Immature Gran # (Auto) 0.37 H Absolute Nucleated RBC 0.00 Immature Gran % 3 H Nucleated RBC % 0 Smear Path Review VBG pH VBG pCO2 VBG pO2 VBG O2 Sat (Miriam) VBG Base Excess Sodium 136 137 137 Potassium 4.0 D 3.8 4.2 Chloride 98 97 L 97 L Carbon Dioxide 28.7 29.3 27.2 Anion Gap 9 11 13 BUN < 5 L < 5 L < 5 L Creatinine 0.4 L 0.3 L 0.2 L Estim Creat Clear Calc 123.5 164.7 254.2 eGFR > 60 > 60 > 60 BUN/Creatinine Ratio 13 17 25 H Glucose 94 105 113 H Calculated Osmolality 269 L 271 L 272 L Calcium 8.7 8.9 8.7 Corrected Calcium 9.4 9.5 9.5 Phosphorus 1.4 L 1.0 L 1.7 L Magnesium 1.6 1.8 Total Bilirubin 0.9 AST 39 H ALT 11 Alkaline Phosphatase 171 H D Total Protein 4.4 L Albumin 3.1 L 3.2 L 3.0 L Globulin 1.4 L Albumin/Globulin Ratio 2.1 Misc Test Result ABG Interpretation ABG results: 05/16/25 05/16/25 05/16/25 12:11 18:26 19:18 ABG pH 7.41 ABG pCO2 29 L ABG pO2 86 ABG HCO3 18 L ABG O2 Saturation 96 ABG Base Excess -6 L VBG pH 7.26 L 7.36 VBG pCO2 36 32 L VBG pO2 49 46 VBG Base Excess -10 L -7 L 05/17/25 05/17/25 05/17/25 01:51 01:58 12:35 ABG pH 7.34 L 7.21 L D ABG pCO2 30 L 30 L ABG pO2 92 181 H D ABG HCO3 16 L 12 L ABG O2 Saturation 97 99 H ABG Base Excess -9 L -15 L VBG pH 7.28 L VBG pCO2 37 VBG pO2 60 H VBG Base Excess -9 L 05/17/25 05/17/25 05/18/25 15:12 22:59 04:06 ABG pH 7.17 L* 7.26 L 7.23 L ABG pCO2 32 26 L 32 ABG pO2 343 H D 298 H D 208 H D ABG HCO3 12 L 12 L 13 L ABG O2 Saturation 100 H 100 H 100 H ABG Base Excess -16 L -14 L -13 L VBG pH VBG pCO2 VBG pO2 VBG Base Excess 05/18/25 05/19/25 12:10 07:13 ABG pH ABG pCO2 ABG pO2 ABG HCO3 ABG O2 Saturation ABG Base Excess VBG pH 7.23 L 7.57 VBG pCO2 35 L 35 L VBG pO2 173 H D 36 D VBG Base Excess -12 L 10 H Assessment & Plan Assessment and plan (1) Diverticulitis of large intestine with perforation without abscess or bleeding: Status: Acute Additional Assessment & Plan Additional Plan: 70F with septic shock post-surgery, now anuric with worsening WARREN likely multifactorial (septic ATN ? obstructive from non-draining nephrostomy tubes). Given persistent anuria, rising azotemia, and metabolic acidosis, patient will undergo dialysis today. # Acute Kidney Injury Likely ischemic ATN Patient with anuric WARREN in the setting of septic shock and recent abdominal surgery. Baseline creatinine 0.8?1.3, now 2.5 with urine output <50 cc/24h. Likely multifactorial: ischemic acute tubular necrosis (ATN) from hypotension and sepsis The absence of response to fluids and continued anuria despite adequate perfusion supports intrinsic renal injury. Plan: * Continue with CRRT * Continue daily renal panel and strict I&O. * Avoid nephrotoxins, renally dose antibiotics. * Continue to assess for renal recovery post-dialysis. # Metabolic Acidosis Patient?s acidosis is mixed, both anion gap and non?anion gap metabolic acidosis are present. Bicarb much better # Hypokalemia//hypophosphatemia Plan: * Monitor on telemetry. * Repeat BMP post-dialysis. * 4K dialysate ordered * K-Phos given. # Septic Shock Post-op from perforated diverticulitis, on norepinephrine and vasopressin. Plan: * Continue broad-spectrum antibiotics (Cipro + Flagyl). * Maintain perfusion pressure for renal support. * Trend lactate and hemodynamics throughout dialysis. Other problems: #Diverticulitis of large intestine with perforation (s/p exploratory laparotomy, sigmoid colectomy, colostomy, hysterectomy on 05/17) #Postoperative state (post-surgical, day 1) #Leukocytosis #Normocytic anemia #Thrombocytopenia #Lactic acidosis #Hyponatremia #Presence of nephrostomy tubes bilaterally #Presence of colostomy #Type 2 diabetes mellitus (controlled, A1C 5.2) #COPD #Endometrial cancer, in remission #Mechanical ventilation dependence Patient currently seen on ventilator. In ICU. Hemodynamic instability-on pressors. Urine output very minimal. Noted WARREN, intractable metabolic acidosis, hyperkalemia. Decided to proceed with dialysis. Patient on stable and will be started on CRRT. Vas-Cath placed by ICU team. CRRT-complete 24 hours Blood flow 150-200 Dialysate flow 100 Saline flush 50 to 80 mL/h No heparin Ultrafiltration 1 L Citrasate dialysate 3K 3.5 calcium 40 bicarbonate Renal panel every 6 hours while on CRRT. Care discussed with ICU team. Critical care time spent more than 45 minutes regarding plan of care and disease management. Prognosis remains guarded. Hold dialysis tonight and tomorrow. Thank you Dr. Coker for allowing me to participate in the care of Ms. Kiser PROCEDURES: Arterial Line Size (Gauge): 20
[2025-05-20 08:17] LABS: Slide Review Platelets confirmed
[2025-05-20 08:21] LABS: Band Neutrophils (Manual) 8 % (0-6); Lymphocytes (Manual) 7 % (20-44); Monocytes (Manual) 2 % (2-9); Neutrophils (Manual) 83 % (50-70)
--- NOTE | 2025-05-20 08:52 | PD.SURPROG ---
Documentation for date of: 05/20/25 Subjective Subjective Narrative: Patient is seen and examined in ICU. Intubated and sedated. She was started on dialysis. Now has thrombocytopenia Exam Vital Signs Temp Pulse Resp BP Pulse Ox O2 Del Method O2 Flow Rate 97.6 F 57 L 22 H 87/73 L 99 Mechanical Ventilation 2 05/20/25 08:03 05/20/25 08:30 05/19/25 16:05 05/20/25 08:30 05/20/25 08:05 05/20/25 08:03 05/16/25 15:14 FiO2 35 05/20/25 07:49 Constitutional Constitutional: no acute distress Routine Abdominal Exam Comments: Abdomen is soft and mildly distended. Colostomy is present and functioning with some soft stool. Incision is dry and intact with some purpura around the incision from thrombocytopenia Assessment & Plan Assessment Additional comments: Postop day #3 status post exploratory laparotomy with sigmoid colectomy, end colostomy and hysterectomy Plan Continue care per ICU team PROCEDURES: Procedures Exploratory laparotomy, sigmoid colectomy with end descending colostomy Hysterectomy
[2025-05-20 09:09] LABS: Fibrinogen 351 mg/dL (175-375); INR 1.2 (0.9-1.3); Prothrombin Time 12.6 Seconds (9.0-12.2)
[2025-05-20] MEDS: Norepinephrine/D5W 8mg/250ml 8 MG/250 ML BAG 48.854 MG IV (10:23)
[2025-05-20 12:51] LABS: Albumin, Serum 3.1 gm/dL (3.4-4.8); Anion Gap 12 (7-16); BUN/Creatinine Ratio 25 Ratio (12-20); Blood Urea Nitrogen < 5 mg/dL (9-23); Calcium 8.8 mg/dL (8.3-10.6); Calcium (Corrected) 9.5 mg/dL (8.5-10.1); Carbon Dioxide 27.2 mMol/L (20.0-31.0); Chloride 98 mMol/L (98-107); Creatinine (Component) 0.2 mg/dL (0.6-1.3); Estimated Creatinine Clearance 254.2 mL/min (>60); Glucose 123 mg/dL (74-106); Osmolality,Calculated 272 (275-295); Phosphorous 1.0 mg/dL (2.4-5.1); Potassium 4.2 mMol/L (3.4-5.1); Sodium 137 mMol/L (136-145); eGFR > 60 See Note
--- NOTE | 2025-05-20 16:08 | PD.INTPROG ---
Documentation for date of: 05/20/25 Subjective Subjective Interval history: Remains on high dose levophed. Sedation off with fentanyl only for pain control/ comfort, RASS remains -2. HR improved and tolerating Tablo/PATIENT ACCOUNT SPECIALIST with plan to stop at 4PM today. Patient with no significant output from ostomy. Patient with no fever. Patient remains NPO. Overnight, incision sight with bruising noted. Patient with no active bleeding grossly. Critical Care Note Critical care time (min.): 40 Exam Vital Signs Temp Pulse Resp BP Pulse Ox O2 Del Method O2 Flow Rate 98.1 F 62 22 H 97/59 L 100 Mechanical Ventilation 2 05/20/25 12:00 05/20/25 16:00 05/19/25 16:05 05/20/25 16:00 05/20/25 15:00 05/20/25 12:00 05/16/25 15:14 FiO2 35 05/20/25 13:38 Narrative Exam GEN: NAD, following commands intermittently HEENT: ETT in place, 20 cm at teeth NECK: bilateral CVC sites C/D/I PULM: CTA bilaterally CVS: S1/S2+ RRR, no R/M/G ABD: No BS, tender to touch, soft/ no rebound, midline incision under bandage, brusing at site, ostomy LLQ with miniaml output : No tomlinson, nephrostomy drains with minimal output EXT: warm, pedal edema bilaterally/ symmetric, left groin no swelling/ hematoma at A-line site; right groin with bruising/ no tenderness, normal pulse NEURO: grossly moving all limbs, nodding appropriately Physical Exam Completion Physical Exam Complete?: Yes Objective - International Coordinator Labs 05/20/25 04:58 05/20/25 12:16 Labs: Laboratory Results - last 24 hr 05/19/25 05/20/25 05/20/25 18: 00:19 04:58 WBC 12.4 H RBC 2.83 L Hgb 8.1 L Hct 23.9 L MCV 85 MCH 28.6 MCHC 33.9 RDW Std Deviation 51.5 H Plt Count 8 L* D Neut % (Auto) 91 H Lymph % (Auto) 4 L [place] % (Auto) 2 Eos % (Auto) 0 Baso % (Auto) 0 Neut # (Auto) 11.3 H Lymph # (Auto) 0.5 L [place] # (Auto) 0.3 Eos # (Auto) 0.0 Baso # (Auto) 0.0 Immature Gran # (Auto) 0.37 H Absolute Nucleated RBC 0.00 Immature Gran % 3 H Neutrophils % (Manual) 83 H Monocytes % (Manual) 2 Nucleated RBC % 0 Band Neutrophils 8 H Lymphocytes (Manual) 7 L PT 12.6 H INR 1.2 Fibrinogen 351 Sodium 136 137 137 Potassium 4.0 D 3.8 4.2 Chloride 98 97 L 97 L Carbon Dioxide 28.7 29.3 27.2 Anion Gap 9 11 13 BUN < 5 L < 5 L < 5 L Creatinine 0.4 L 0.3 L 0.2 L Estim Creat Clear Calc 123.5 164.7 254.2 eGFR > 60 > 60 > 60 BUN/Creatinine Ratio 13 17 25 H Glucose 94 105 113 H Calculated Osmolality 269 L 271 L 272 L Calcium 8.7 8.9 8.7 Corrected Calcium 9.4 9.5 9.5 Phosphorus 1.4 L 1.0 L 1.7 L Magnesium 1.6 1.8 Total Bilirubin 0.9 AST 39 H ALT 11 Alkaline Phosphatase 171 H D Total Protein 4.4 L Albumin 3.1 L 3.2 L 3.0 L Globulin 1.4 L Albumin/Globulin Ratio 2.1 Misc Test Result Platelets confirmed Blood Type Antibody Screen Antibody Identification Blood Bank Wristband ID Blood Bank Comment 05/20/25 05/20/25 08:42 12:16 WBC RBC Hgb Hct MCV MCH MCHC RDW Std Deviation Plt Count Neut % (Auto) Lymph % (Auto) [place] % (Auto) Eos % (Auto) Baso % (Auto) Neut # (Auto) Lymph # (Auto) [place] # (Auto) Eos # (Auto) Baso # (Auto) Immature Gran # (Auto) Absolute Nucleated RBC Immature Gran % Neutrophils % (Manual) Monocytes % (Manual) Nucleated RBC % Band Neutrophils Lymphocytes (Manual) PT INR Fibrinogen Sodium 137 Potassium 4.2 Chloride 98 Carbon Dioxide 27.2 Anion Gap 12 BUN < 5 L Creatinine 0.2 L Estim Creat Clear Calc 254.2 eGFR > 60 BUN/Creatinine Ratio 25 H Glucose 123 H Calculated Osmolality 272 L Calcium 8.8 Corrected Calcium 9.5 Phosphorus 1.0 L Magnesium Total Bilirubin AST ALT Alkaline Phosphatase Total Protein Albumin 3.1 L Globulin Albumin/Globulin Ratio Misc Test Result Blood Type O Positive Antibody Screen POSITIVE Antibody Identification Anti-E Blood Bank Wristband ID Yes Blood Bank Comment PLATP Ready Critical care time Critical Care Time Total Critical Care Time (min.): 40 Attestation: Patient remains at significant risk for further morbidity and mortality warranting close monitoring and care only available in the ICU. Critical care services required for septic shock, acute renal failure, complicated UTI, perforated viscus s/p partial colectomy/ hysterectomy, and acute respiratory failure. Assessment & Plan Problem List (1) Diverticulitis of large intestine with perforation without abscess or bleeding: Status: Acute Additional Plan Additional Plan: 70-year-old female with history of nephrolithiasis (s/p bilateral nephrostomy tubes Sep 2024), endometrial cancer in remission, T2DM, and chronic anemia presenting with severe abdominal pain, vomiting, fever, and chills, found to have acute sigmoid diverticulitis with localized perforation and sepsis requiring ICU admission. Neurology #Chemical sedation Treatment Plan: - Propofol stopped - Maintain on Fentanyl with a CPOT score 1. Cardiovascular #Septic shock, likely secondary to #Perforated sigmoid diverticulitis with feculent peritonitis DDx: septic shock (distributive) vs hypovolemia vs cardiogenic shock. Likely due to distributive shock from sepsis. Lactate > 2 despite adequate IV fluids (30 mL/kg). Check central saturation to correlate. No evidence of cardiogenic component at this time. Diagnostic Test: - Met 3/4 SIRS criteria on admission: T 101.1F, RR 31, WBC 16.3. - qSOFA score of 2 (RR 31 and SBP 84). - Confirmed or suspected infection: ruptured diverticulitis. - CT abd/pelvis: diverticulitis of large intestine with perforation. - End organ damage: WARREN due to sepsis: baseline Cr 0.8-1.3. Cr 2.3 on this admission. - Lactic acidosis due to sepsis: lactic acid level of 4.8 on admission. - Troponin < 0.002. - BP 84/58 on admission. - Echo ordered Treatment Review (completed) - Fluids: 30 mL/kg given in the ED. - S/p exploratory laparotomy, sigmoid colectomy with end descending colostomy and hysterectomy on 05/17. Treatment Plan: - Ciprofloxacin 400mg in 200mls IV Q12H (05/16-05/19) - Metronidazole 500mg in 100mls IV Q8H (05/16-05/19) - MDR Ecoli in urine, switched to Zosyn 05/19 - Poor clearance now due to renal failure. AM LA <2 now. MAP>65. - Urine culture- MDR Ecoli - Blood culture NGTD. - Strict I&O. - Continue Norepinephrine, titrate to maintain MAP > 65. - Continue Vasopressin 20 units in 100 mls at 0.03 units/min. - Maintain on stress dose steroids for now Respiratory #Acute respiratory failure, post-op Patient intubated during surgical procedure, remains intubated and sedated. -MRSA negative + GPC/rods in sputum Treatment plan: - Ventilator AC VC, tidal volume 440, respiratory rate 15, PEEP 5, FiO2 35 - Plan for extubation when pressors minimized #History of COPD Diagnostic Test: - No cardinal symptoms of COPD exacerbation such as increase sputum purulence or volume, or increase dyspnea. - VBG 05/16 12:11 showed pH 7.26, pCO2 36 - VBG 05/16 18:26 showed pH 7.36, pCO2 32 - ABG 05/16 19:18 showed pH 7.41, pCO2 29, pO2 82, HCO3 18 - CXR 05/16: Significant left base pneumonia. Treatment Plan: - Monitor O2 saturation and respiratory effort. - No steroids or bronchodilators unless COPD exacerbation evident. GI, , F/E/N #Perforated sigmoid diverticulitis with feculent peritonitis S/p exploratory laparotomy, sigmoid colectomy with end descending colostomy and hysterectomy on 05/17. Diagnostic Test: - CT abd/pelvis: acute sigmoid diverticulitis with localized rupture of diverticula and mild pelvic pneumoperitoneum. - Surgery findings: inflamed and thickened sigmoid with large perforation and feculent peritonitis. Inflamed and necrotic appearing uterus. Very thin anterior abdominal fascia with evidence of multiple mesh placements from prior operations. Treatment Plan: - General surgery following, appreciate recommendations. - TF when on low dose vasopressors at discretion of surgical input - Antibiotics as per above - Ondansetron 4mg IV Q6H PRN for nausea. #History of endometrial cancer Treatment Plan: - Being followed with Rad/Onc in [place]. Renal #Anion gap metabolic acidosis with compensated respiratory alkalosis #Lactic acidosis DDx: uremia vs lactic acidosis Diagnostic Test: - Patient continued to have worsening acidosis, no urine output, nephrology consulted Treatment Plan: - Cleared now - Continue on PATIENT ACCOUNT SPECIALIST, will discuss potential for fluid removal - Albumin to facilitate mobilization of third spacing/ hypotension/ weaning pressors #Acute kidney injury #Anuria DDx: hypoperfusion vs sepsis vs obstrutive component from nephrostomy tubes vs anuria. Patient has not had any urine output to nephrostomy bag. Diagnostic Test: - Baseline Cr: 0.8-1.3. - Cr 2.3 on admission. - CT abd/pelvis: Bilateral nephrostomy ureteral catheter. -05/18: BUN 40, creatinine 2.5, eGFR 20. - Started HD 05/19 - Repeat HD 05/20 Treatment Plan: - Daily renal panel to trend Cr. - Avoid nephrotoxins. - Renally dose meds as appropriate. - Strict I&Os, monitor urine output closely. - Continue PATIENT ACCOUNT SPECIALIST with no fluid removal #Hematuria Diagnostic Test: - UA: RBC 54. Treatment Plan: - Follow-up outpatient with urology to work-up hematuria. #Obstrutive nephrolithiasis s/p nephrostomy tube Treatment Plan: - Continue with nephrostomy tube. - Monitor urine output. Heme #Normocytic anemia DDx: anemia of chronic disease vs iron-deficiency anemia vs reactive. Diagnostic Test: - Hemoglobin 10.2 --> 9.4-->9.2-->8.1 Treatment Review (completed). - 2 units of pRBCs were transfused after surgery on 05/17. Treatment Plan: - Type and screen. - Monitor H&H. - Transfusing for Hgb <7 or symptomatic. - Held heparin subcutaneous for DVT PPX, SCD. Confirm with general surgery before restarting heparin. #Thrombocyopenia DDx: Consumptive Diagnostic Test: - Plt 602 on admission. - Plt 419 on 05/17, 106 on 05/18 - Plt 11 05/19 - Plt 8 05/20 - Suspect consumptive in setting of significant open abdominal surgery Treatment Plan: - Monitor platelets, transfuse to keep > 10k, 1 pack ordered #Leukocytosis DDx: reactive vs URI vs pneumonia Diagnostic Test: . - WBC: 17.3--> 13.7-->12.4 Treatment Plan - Continue to treat UTI/ intrabdominal infection with Zosyn Endo #Noninsulin dependent T2DM Diagnostic Test: - Hemoglobin A1c on 05/12/2025 was 5.2. - Blood glucose 154 on admission. - Glucose at goal <180 Treatment Plan: - Continue to check blood glucose levels. - Will start insulin if need better glycemic control. ID #Urinary tract infection Diagnostic Test: - Urinalysis: blood 2+, RBC 54, WBC 1069, bacteria 4+, positive leukocyte esterase. - Patient has history of positive UAs. - 10/31/24 urine culture: Klebsiella. Treatment Plan: - Ciprofloxacin 400mg in 200mls IV Q12H (05/16-). - Zosyn dosing per pharmacy - Urine culture- ESBL E. Coli Health Maintenance: DVT prophylaxis: SCDs, not appropriate for chemical prophylaxis due to PLT <50k GI prophylaxis: Pantoprazole 40 mg IV daily Diet: NPO Tomlinson: none Lines: left IJ central line, right IJ dialysis cath, left femoral arterial line Drips: Levophed , Vasopressin, fentanyl Vent: AC CODE STATUS: FULL CODE Provider Notation Provider Notation: Although this document has been carefully reviewed, there may still be some phonetic and other typographical errors. These errors are purely grammatical due to imperfections in the software program and should not be construed in any way to compromise the substance of the patient's medical care during this visit. Thank you for the opportunity and privilege in assisting you with this patient's care and management.
[2025-05-20] MEDS: HEPARIN SOD INJ 1000 UNIT/ML VIAL 10 ML 1300 UNIT INDWELLCAT (16:47)
[2025-05-20 17:59] LABS: Base Excess 3 (-3-3); HCO3 26 mEq/L (20-26); Inspired Oxygen, FIO2 35 %; O2 Saturation 99 % (91-98); PCO2 35 mmHg (32.0-48.0); PO2 126 mmHg (83-108); pH, Arterial 7.49 (7.35-7.45)
[2025-05-20 18:02] LABS: Allen Test Performed/OK; Puncture Site Arterial Line
[2025-05-20] MEDS: Norepinephrine/D5W 8mg/250ml 8 MG/250 ML BAG 16.285 MG IV (18:26)
[2025-05-20 19:05] LABS: Albumin, Serum 3.3 gm/dL (3.4-4.8); Anion Gap 14 (7-16); BUN/Creatinine Ratio 17 Ratio (12-20); Blood Urea Nitrogen < 5 mg/dL (9-23); Calcium 9.0 mg/dL (8.3-10.6); Calcium (Corrected) 9.6 mg/dL (8.5-10.1); Carbon Dioxide 25.8 mMol/L (20.0-31.0); Chloride 97 mMol/L (98-107); Creatinine (Component) 0.3 mg/dL (0.6-1.3); Estimated Creatinine Clearance 169.5 mL/min (>60); Glucose 83 mg/dL (74-106); Osmolality,Calculated 270 (275-295); Potassium 3.8 mMol/L (3.4-5.1); Sodium 137 mMol/L (136-145); eGFR > 60 See Note
[2025-05-20 19:07] LABS: Phosphorous 0.9 mg/dL (2.4-5.1)
[2025-05-21] VITALS (112 sets, daily range): BP systolic 0–127; BP diastolic 0–73; PULSE 56–91; RESP 21–27; TEMP 36.4–37.2; O2SAT 88–100
--- NOTE | 2025-05-21 00:33 | PC.NURSE ---
MD Moncada would like to change kphos rate into faster rate. [facility] pharmacy called, per Edu (NOC pharmacist), it is recommended to not increase rate. MD Moncada made aware. will change order to 85ml/hr.
[2025-05-21] MEDS: VASOPRESSIN IN NS IVPB 20 UNIT/100 ML BAG 9 UNIT IV ×2 (01:36→12:27)
[2025-05-21 01:53] LABS: Albumin, Serum 3.4 gm/dL (3.4-4.8); Anion Gap 16 (7-16); BUN/Creatinine Ratio 8 Ratio (12-20); Blood Urea Nitrogen < 5 mg/dL (9-23); Calcium 8.5 mg/dL (8.3-10.6); Calcium (Corrected) 9.0 mg/dL (8.5-10.1); Carbon Dioxide 22.8 mMol/L (20.0-31.0); Chloride 99 mMol/L (98-107); Creatinine (Component) 0.6 mg/dL (0.6-1.3); Estimated Creatinine Clearance 84.7 mL/min (>60); Glucose 87 mg/dL (74-106); Osmolality,Calculated 271 (275-295); Phosphorous 2.7 mg/dL (2.4-5.1); Potassium 4.4 mMol/L (3.4-5.1); Sodium 138 mMol/L (136-145); eGFR > 60 See Note
[2025-05-21] MEDS: ALBUMIN HUMAN-KJDA 25% IVPB 25 GM/100 ML BTL IV ×3 (05:26→21:00)
[2025-05-21] MEDS: HYDROCORTISONE SOD SUCC INJ 100 MG 2 ML VIAL 50 MG IV ×5 (05:27→23:00)
[2025-05-21] MEDS: PIPER/TAZO 3.375 GM PREMIX 3.375 GM/50 ML BAG IV ×3 (05:27→21:00)
[2025-05-21 05:53] LABS: Basophils # (Auto) 0.1 Thou/mm3 (0.0-0.2); Basophils % (Auto) 1 % (0-2.5); Eosinophils # (Auto) 0.0 Thou/mm3 (0.0-0.5); Eosinophils % (Auto) 0 % (0-10); Hematocrit 20.6 % (36.0-46.0); Immature Granulocytes Auto 0.29 Thou/mm3 (0.00-0.00); Lymphocytes # (Auto) 0.4 Thou/mm3 (1.0-4.8); Lymphocytes % (Auto) 6 % (10-50); Mean Corpuscular HGB Conc 33.0 g/dl (31.0-37.0); Mean Corpuscular Hemoglobin 28.3 pg (25.0-35.0); Mean Corpuscular Volume 86 fL (80-100); Monocytes # (Auto) 0.2 Thou/mm3 (0.0-0.8); Monocytes % (Auto) 3 % (0-12); Neutrophils # (Auto) 6.4 Thou/mm3 (1.8-7.7); Neutrophils % (Auto) 87 % (37-80); Nucleated Red Blood Cell # 0.00 Thou/mm3 (0.00-0.00); Nucleated Red Blood Cell % 0 /100 WBC (0); RDW Standard Deviation 53.5 fL (36.4-46.3); Red Blood Count 2.40 Miln/mm3 (4.00-5.20); White Blood Count 7.4 Thou/mm3 (3.6-11.0)
[2025-05-21 06:02] LABS: Hemoglobin 6.8 g/dL (12.0-16.0); Platelet Count 39 Thou/mm3 (140-440)
[2025-05-21 06:25] LABS: Alanine Aminotransferase 10 U/L (10-49); Albumin, Serum 3.1 gm/dL (3.4-4.8); Albumin/Globulin Ratio 2.2 (1.2-2.2); Alkaline Phosphatase 139 U/L (46-116); Anion Gap 16 (7-16); Aspartate Amino Transferase 21 U/L (0-34); BUN/Creatinine Ratio 7 Ratio (12-20); Bilirubin,Total 0.8 mg/dL (0.3-1.2); Blood Urea Nitrogen 5 mg/dL (9-23); Calcium 8.2 mg/dL (8.3-10.6); Calcium (Corrected) 8.9 mg/dL (8.5-10.1); Carbon Dioxide 22.7 mMol/L (20.0-31.0); Chloride 99 mMol/L (98-107); Creatinine (Component) 0.7 mg/dL (0.6-1.3); Estimated Creatinine Clearance 72.6 mL/min (>60); Globulin 1.4 gm/dL (2.3-3.5); Glucose 90 mg/dL (74-106); Magnesium 1.7 mg/dL (1.6-2.6); Osmolality,Calculated 272 (275-295); Phosphorous 2.7 mg/dL (2.4-5.1); Potassium 4.4 mMol/L (3.4-5.1); Sodium 138 mMol/L (136-145); Total Protein 4.5 gm/dL (5.7-8.2); eGFR > 60 See Note
[2025-05-21 06:33] LABS: Path Review Blood Smear Sent to Pathologist; Slide Review Platelets confirmed
[2025-05-21 06:49] LABS: Hematocrit 20.5 % (36.0-46.0)
[2025-05-21] MEDS: fentaNYL 2,500 MCG/250 ML BAG 2,500 MCG/250 ML BAG 30 MCG IV (07:10)
[2025-05-21 07:35] LABS: Hemoglobin 6.7 g/dL (12.0-16.0)
[2025-05-21 10:15] LABS: Base Excess 0 (-3-3); HCO3 24 mEq/L (20-26); Inspired Oxygen, FIO2 35 %; PCO2 34 mmHg (32.0-48.0); PO2 70 mmHg (83-108); pH, Arterial 7.45 (7.35-7.45)
[2025-05-21 10:18] LABS: Allen Test Not Performed
--- NOTE | 2025-05-21 10:20 | PC.SS ---
SS updated: Remains intubated.
--- NOTE | 2025-05-21 13:28 | PD.RESPRO ---
Documentation for date of: 05/21/25 Subjective Subjective Interval history: Reason for consult: Oliguria/Anuria - WARREN in ICU patient post-septic shock and exploratory lap History of present illness: 70-year-old female with a history of nephrolithiasis (s/p bilateral nephrostomy tubes placed Sep 2024), endometrial cancer in remission, type 2 diabetes mellitus, chronic anemia, and COPD, admitted with perforated sigmoid diverticulitis and feculent peritonitis. She underwent exploratory laparotomy, sigmoid colectomy with end descending colostomy, and hysterectomy on 05/17. Nephrology was re-consulted today for no urine output. Overnight urine output was 50 cc total, despite adequate fluid resuscitation and pressor support (on norepinephrine and vasopressin). Patient remains in the ICU, intubated and sedated on propofol/fentanyl, receiving broad-spectrum antibiotics (ciprofloxacin + metronidazole). 05/18/2025: Patient seen in ICU during morning rounds. Intubated, sedated, on vasopressor support. No urine output noted from nephrostomy tubes or Bal. Nursing reports total 50 cc output overnight. No new fevers reported. BP 112/57 mmHg, HR 82. Labs: WBC 18.6, Hgb 10.4, Hct 31.6, Plt 106 (yesterday 419), Na 136, K 5.4, Cl 108, CO2 13.4, BUN 40, Cr 2.5 (GFR 20), Ca 8.8, Phos 6.0, Mg 2.1, Albumin 2.7, Alk Phos 176, Lactic acid 3.0->3.2. ABG: pH 7.30, pCO2 32, HCO3 13. 05/19/2025: Patient currently seen in ICU. On CRRT. On ventilator. Patient more alert and awake. No urine output from nephrostomy tubes or Bal. She had a sigmoid resection and colostomy with minimal stool. Labs, medications reviewed. Will continue with CRRT for next [address] Coker who is at bedside. 05/21/2025: Patient seen today in the ICU. She remains intubated, sedated, and critically ill. No significant urine output noted overnight; nephrostomy tubes remain with minimal drainage. Blood pressure stable on low-dose pressor support. No plans for PARK ACTIVITIES COORDINATOR today, will re-evaluate tomorrow based on hemodynamics, urine output, and lab trends. Labs: WBC 7.4, Hgb 6.8, Hct 20.6, Plt 39, Na 130, K 4.4, Cl 99, CO2 22.7, Cr 0.7 (GFR >60), Ca 8.9, Phos 2.7, Mg 1.7. ABG: pH 7.45, pCO2 34, HCO3 24. No acute respiratory distress noted; acidosis resolved. Exam Vital Signs Temp Pulse Resp BP Pulse Ox O2 Del Method O2 Flow Rate 97.9 F 68 22 H 95/52 L 98 Mechanical Ventilation 100 05/21/25 11:54 05/21/25 11:54 05/21/25 11:54 05/21/25 11:54 05/21/25 11:54 05/21/25 08:00 05/20/25 17:34 FiO2 35 05/21/25 12:00 Narrative Exam General: Intubated, sedated, critically ill. CV: Regular rate and rhythm, no murmurs, no JVD. Resp: Ventilated breath sounds equal bilaterally, no wheezes or crackles. Abdomen: Soft, post-op dressing clean/dry/intact, colostomy with minimal output. : Bilateral nephrostomy tubes with minimal drainage. Extremities: Warm, trace edema. Neuro: Sedated, opens eyes intermittently. Objective Labs 05/21/25 15:43 05/21/25 05:25 Labs: Laboratory Results - last 24 hr 05/20/25 05/20/25 05/20/25 08:42 17:49 18:33 WBC RBC Hgb Hct MCV MCH MCHC RDW Std Deviation Plt Count Neut % (Auto) Lymph % (Auto) [place] % (Auto) Eos % (Auto) Baso % (Auto) Neut # (Auto) Lymph # (Auto) [place] # (Auto) Eos # (Auto) Baso # (Auto) Immature Gran # (Auto) Absolute Nucleated RBC Immature Gran % Nucleated RBC % Smear Path Review Puncture Site Arterial Line ABG pH 7.49 H D ABG pCO2 35 ABG pO2 126 H D ABG HCO3 26 ABG O2 Saturation 99 H ABG Base Excess 3 FiO2 35 Sodium 137 Potassium 3.8 Chloride 97 L Carbon Dioxide 25.8 Anion Gap 14 BUN < 5 L Creatinine 0.3 L Estim Creat Clear Calc 169.5 eGFR > 60 BUN/Creatinine Ratio 17 Glucose 83 Calculated Osmolality 270 L Calcium 9.0 Corrected Calcium 9.6 Phosphorus 0.9 L* Magnesium Total Bilirubin AST ALT Alkaline Phosphatase Total Protein Albumin 3.3 L Globulin Albumin/Globulin Ratio Misc Test Result Blood Type O Positive Antibody Screen POSITIVE Antibody Identification Anti-E Crossmatch See Detail Blood Bank Wristband ID Yes Blood Bank Comment PLATP Ready 05/21/25 05/21/25 05/21/25 01:26 05:25 06:22 WBC 7.4 D RBC 2.40 L Hgb 6.8 L* 6.7 L* Hct 20.6 L* 20.5 L* MCV 86 MCH 28.3 MCHC 33.0 RDW Std Deviation 53.5 H Plt Count 39 L D Neut % (Auto) 87 H Lymph % (Auto) 6 L [place] % (Auto) 3 Eos % (Auto) 0 Baso % (Auto) 1 Neut # (Auto) 6.4 Lymph # (Auto) 0.4 L [place] # (Auto) 0.2 Eos # (Auto) 0.0 Baso # (Auto) 0.1 Immature Gran # (Auto) 0.29 H Absolute Nucleated RBC 0.00 Immature Gran % 4 H Nucleated RBC % 0 Smear Path Review Sent to Pathologist Puncture Site ABG pH ABG pCO2 ABG pO2 ABG HCO3 ABG O2 Saturation ABG Base Excess FiO2 Sodium 138 138 Potassium 4.4 D 4.4 Chloride 99 99 Carbon Dioxide 22.8 22.7 Anion Gap 16 16 BUN < 5 L 5 L Creatinine 0.6 0.7 Estim Creat Clear Calc 84.7 72.6 eGFR > 60 > 60 BUN/Creatinine Ratio 8 L 7 L Glucose 87 90 Calculated Osmolality 271 L 272 L Calcium 8.5 8.2 L Corrected Calcium 9.0 8.9 Phosphorus 2.7 2.7 Magnesium 1.7 Total Bilirubin 0.8 AST 21 ALT 10 Alkaline Phosphatase 139 H D Total Protein 4.5 L Albumin 3.4 3.1 L Globulin 1.4 L Albumin/Globulin Ratio 2.2 Misc Test Result Platelets confirmed Blood Type Antibody Screen Antibody Identification Crossmatch Blood Bank Wristband ID Blood Bank Comment 05/21/25 10:08 WBC RBC Hgb Hct MCV MCH MCHC RDW Std Deviation Plt Count Neut % (Auto) Lymph % (Auto) [place] % (Auto) Eos % (Auto) Baso % (Auto) Neut # (Auto) Lymph # (Auto) [place] # (Auto) Eos # (Auto) Baso # (Auto) Immature Gran # (Auto) Absolute Nucleated RBC Immature Gran % Nucleated RBC % Smear Path Review Puncture Site Not Performed. ABG pH 7.45 ABG pCO2 34 ABG pO2 70 L D ABG HCO3 24 ABG O2 Saturation Not Performed. ABG Base Excess 0 FiO2 35 Sodium Potassium Chloride Carbon Dioxide Anion Gap BUN Creatinine Estim Creat Clear Calc eGFR BUN/Creatinine Ratio Glucose Calculated Osmolality Calcium Corrected Calcium Phosphorus Magnesium Total Bilirubin AST ALT Alkaline Phosphatase Total Protein Albumin Globulin Albumin/Globulin Ratio Misc Test Result Blood Type Antibody Screen Antibody Identification Crossmatch Blood Bank Wristband ID Blood Bank Comment ABG Interpretation ABG results: 05/16/25 05/16/25 05/16/25 12:11 18:26 19:18 ABG pH 7.41 ABG pCO2 29 L ABG pO2 86 ABG HCO3 18 L ABG O2 Saturation 96 ABG Base Excess -6 L VBG pH 7.26 L 7.36 VBG pCO2 36 32 L VBG pO2 49 46 VBG Base Excess -10 L -7 L 05/17/25 05/17/25 05/17/25 01:51 01:58 12:35 ABG pH 7.34 L 7.21 L D ABG pCO2 30 L 30 L ABG pO2 92 181 H D ABG HCO3 16 L 12 L ABG O2 Saturation 97 99 H ABG Base Excess -9 L -15 L VBG pH 7.28 L VBG pCO2 37 VBG pO2 60 H VBG Base Excess -9 L 05/17/25 05/17/25 05/18/25 15:12 22:59 04:06 ABG pH 7.17 L* 7.26 L 7.23 L ABG pCO2 32 26 L 32 ABG pO2 343 H D 298 H D 208 H D ABG HCO3 12 L 12 L 13 L ABG O2 Saturation 100 H 100 H 100 H ABG Base Excess -16 L -14 L -13 L VBG pH VBG pCO2 VBG pO2 VBG Base Excess 05/18/25 05/19/25 05/20/25 12:10 07:13 17:49 ABG pH 7.49 H D ABG pCO2 35 ABG pO2 126 H D ABG HCO3 26 ABG O2 Saturation 99 H ABG Base Excess 3 VBG pH 7.23 L 7.57 VBG pCO2 35 L 35 L VBG pO2 173 H D 36 D VBG Base Excess -12 L 10 H 05/21/25 10:08 ABG pH 7.45 ABG pCO2 34 ABG pO2 70 L D ABG HCO3 24 ABG O2 Saturation Not Performed. ABG Base Excess 0 VBG pH VBG pCO2 VBG pO2 VBG Base Excess Quality Measures Quality Measures VTE prophylaxis Advance care planning discussed with:: patient Assessment & Plan Assessment Current Active Medications: Generic Name Dose Route Start Last Admin Trade Name Freq PRN Reason Stop Dose Admin Gabapentin 300 mg 05/21/25 21:00 Gabapentin 300 Mg Capsule PO 06/20/25 20:59 HS JESSICA Heparin Sodium (Porcine) 1,300 unit 05/20/25 16:41 05/20/25 16:47 Heparin Sod Inj 1000 Unit/Ml Vial 10 Ml INDWELLCAT 06/03/25 16:40 1,300 unit PRN PRN Administration PER PROTOCOL Hydrocortisone Sodium Succinate 50 mg 05/19/25 12:00 05/21/25 12:00 Hydrocortisone Sod Succ Inj 100 Mg 2 Ml Vial IV 06/18/25 11:59 50 mg Q6HR JESSICA Administration Hydromorphone HCl 3 mg 05/21/25 11:44 Hydromorphone Inj 2 Mg/Ml Vial IVP 05/26/25 11:43 Q3HR PRN Breakthrough Pain 7-10 Norepinephrine/Dextrose 8 mg in 250 mls @ 6.785 mls/hr 05/16/25 17:49 05/21/25 12:24 Levophed In D5w 8mg/250ml IV 06/15/25 17:48 0.02 mcg/kg/min .Q24H PRN 2.714 mls/hr PER PROTOCOL Titration Protocol 0.05 MCG/KG/MIN Vasopressin/Sodium Chloride 20 unit in 100 mls @ 9 mls/hr 05/17/25 00:58 05/21/25 12:27 Vasostrict/Ns Ivpb IV 06/16/25 00:57 0.03 unit/min .Q11H7M PRN 9 mls/hr PER PROTOCOL Administration Protocol 0.03 UNIT/MIN Propofol 1,000 mg in 100 mls @ 2.214 mls/hr 05/17/25 14:19 05/19/25 07:30 Diprivan Ivpb IV 06/16/25 14:18 0 mcg/kg/min .Q24H PRN 0 mls/hr PER PROTOCOL Titration Protocol 5 MCG/KG/MIN Albumin Human 25 gm in 100 mls @ 100 mls/hr 05/19/25 07:30 05/21/25 06:26 Albuminex 25% Ivpb IV 05/24/25 07:29 Infused Q8HR JESSICA Infusion Piperacillin/Tazobactam/Dextrose 3.375 gm in 50 mls @ 12.5 mls/hr 05/19/25 14:00 05/21/25 09:27 Zosyn IV 05/26/25 13:59 Infused Q8HR JESSICA Infusion Protocol Fentanyl Citrate 2,500 mcg in 250 mls @ 2.5 mls/hr 05/20/25 08:59 05/21/25 12:00 Sublimaze Inj 2,500 Mcg/250 Ml Bag IV 05/25/25 08:58 150 mcg/hr .Q24H PRN 15 mls/hr PER PROTOCOL Titration Protocol 25 MCG/HR Melatonin 3 mg 05/21/25 21:00 Melatonin 3 Mg Tablet PO 06/20/25 20:59 HS JESSICA Ondansetron HCl 4 mg 05/16/25 18:34 05/17/25 09:51 Ondansetron Inj 2 Mg/Ml Inj 2 Ml IVP 06/15/25 18:33 4 mg Q6H PRN Administration NAUSEA OR VOMITING Protocol Pantoprazole Sodium 40 mg 05/17/25 09:00 05/21/25 08:54 Pantoprazole Inj 40 Mg Vial IVP 06/16/25 08:59 40 mg QDAY JESSICA Administration Pharmacy Consult 1 each 05/16/25 16:37 Pharmacy Renal Dose Adjustment 1 Ea XX 06/15/25 16:36 PRN PRN CONSULT Plan 70F with history of nephrolithiasis (s/p bilateral nephrostomy tubes), endometrial cancer in remission, T2DM, COPD, and recent sigmoid colectomy with colostomy for perforated diverticulitis complicated by septic shock and anuric WARREN. Patient previously on CRRT, now off PARK ACTIVITIES COORDINATOR with improving renal function (Cr 0.7) though remains oliguric/anuric. Hemodynamically stable on low-dose pressor. No dialysis today; will reassess tomorrow. # Acute Kidney Injury Renal function markedly improved (Cr 0.7, GFR >60) after prior CRRT. Patient remains oliguric/anuric. Likely recovering ATN phase post-sepsis and ischemia. Plan: Hold PARK ACTIVITIES COORDINATOR today; reassess tomorrow based on urine output and volume status. Maintain strict I&O; document nephrostomy output separately. Avoid nephrotoxins and renally dose medications. Trend renal function daily. Maintain MAP >65 for renal perfusion. Continue gentle fluid management and monitor for overload. # Metabolic Acidosis Resolved; ABG normalized (pH 7.45, HCO3 24). Plan: Continue to monitor ABG and metabolic panel daily. No bicarbonate or PARK ACTIVITIES COORDINATOR indicated today. # Hypophosphatemia # Hypomagnesemia Resolved, Phos 2.7, Mg 1.7 Plan: Replete phosphorus and magnesium as needed to maintain within normal range. Recheck electrolytes in the morning. # Septic Shock Improved; remains on low-dose vasopressors. MDR E. coli UTI source; on Zosyn. Plan: Continue antibiotics per ICU/ID guidance. Monitor lactate and hemodynamics. Other problems: #Diverticulitis of large intestine with perforation (s/p exploratory laparotomy, sigmoid colectomy, colostomy, hysterectomy on 05/17) #Postoperative state (post-surgical, day 4) #Leukocytosis #Normocytic anemia #Thrombocytopenia #Lactic acidosis #Hyponatremia (resolved) #Presence of nephrostomy tubes bilaterally #Presence of colostomy #Type 2 diabetes mellitus (controlled, A1C 5.2) #COPD #Endometrial cancer, in remission #Mechanical ventilation dependence Management per ICU team ----- Plan discussed with attending physician Dr. Garcia Jackson MD PGY-1 Internal Medicine Attending Provider Attestation/Addendum Patient seen and examined with resident physician Dr. Jackson. Note reviewed, agree with findings and recommendations. Hold dialysis today. Will reevaluate tomorrow. Patient did receive 2 days of CRRT.
--- NOTE | 2025-05-21 13:47 | EKG_ITS ---
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
[2025-05-21 16:17] LABS: Hematocrit 24.4 % (36.0-46.0)
[2025-05-21 16:38] LABS: Hemoglobin 8.2 g/dL (12.0-16.0)
--- NOTE | 2025-05-21 16:40 | ESPR_ITS ---
<Statement entered by Tim Anguiano MD - 05/21/25 17:57> Patient seen and examined at bedside. I discussed and supervised with the dietetic intern physician who took care of this patient. I personally saw and examined the patient. I agree with most of the assessment and plan. Gave 1 unit PRBC for Hg <7, posttransfusion Hg 8.2. Pressor requirements continue to titrate down. Holding tube feeds until off pressors. Patient started having formed BM via colostomy bag. Patient previously on 300 mcg/hr fentanyl drip, reduced to 150 with Gabapentin HS and PRN dilauded for breakthrough pain. Plan of care discussed with attending Dr. Coker. Tim Anguiano MD PGY-2 Documentation for date of: 05/21/25 Subjective Subjective Interval history: 05/21/2025: Overnight, the patient's hemoglobin dropped to 6.8, with a repeat value of 6.7. One unit of packed red blood cells was transfused, resulting in a post-transfusion hemoglobin of 8.2. Blood smear is planned to further evaluate anemia. Platelet count was 8 on 05/20, and following transfusion, improved to 39. Phosphorus level was 0.9, and after potassium phosphate repletion, increased to 2.7. Urine output was approximately 38 cc over the past 12 hours. Per nursing staff, patient had a formed bowel movement in the ostomy. Patient remains on pressors with norepinephrine at 0.03 mcg/kg/min and vasopressin at 0.03 units/min. Plan is to continue gradual weaning as tolerated. Fentanyl infusion was at 300 mcg/hr earlier today and has been tapered to 150 mcg/hr. To support pain control during the fentanyl taper, gabapentin 300 mg PO at bedtime and hydromorphone 3 mg Q3H PRN have been added to the regimen. 05/20/2025: Patient is seen and examined in ICU. Intubated and sedated. She was started on dialysis. Now has thrombocytopenia 05/19/2025: No fever overnight. Minimal outpt form ostomy, mostly red/ serous. Chucks remain dry, no UOP. No tomlinson in place. Nephrostomy tubes flushed with minimal output. Patient remains on levophed at 0.3 mcg/kg/min and vasopressin. Patient spontaneously opening eys with sedation slowly tapered overnight, bradycardia to 52- remained SB. About to complete first round of Tablo, plan for one hour break pending input form nephrology. Alkalotic on AM labs. 05/18/2025: Patient Levophed uptitrated overnight. Patient continues to have no urinary output with worsening renal function and acidosis on labs, right IJ Vas- Cath placed and Tablo dialysis initiated. Patient also developed significant thrombocytopenia, suspect consumptive following large surgery. Last goals updated 2-2. Over course of dialysis, Levophed was able to be down titrated, remains greater than 0.2. Echocardiogram ordered due to ongoing elevated pressor requirements. 05/17/2025: Overnight, NICOM was used to assess fluid responsiveness, and it indicated that the patient is 39% fluid responsive. The patient was on levophed at 0.19 mcg/kg/min and received 12.5 grams of albumin in 50 mL, along with 1L of LR, to address her low blood pressure. For abdominal pain management, the patient was given 0.5 mg of Dilaudid x2, IV Tylenol, a lidocaine patch, and a scopolamine patch. Additionally, the patient received 4 mg of Zofran for nausea. According to nursing staff, the patient had a diaper with a moderate amount of urine but no urine output in the nephrostomy bag. The patient refused a Tomlinson catheter and a purewick was placed instead. A bladder scan showed no urine production. The patient has not been producing urine. Nephrology recommended increasing fluid intake and flushing the nephrostomy tubes. Vasopressin was eventually added for her low blood pressures. A right femoral arterial line was placed before patient went to surgery. Patient underwent an exploratory laparotomy, sigmoid colectomy with end descending colostomy and hysterectomy. Findings from the operation: Inflamed and thickened sigmoid with large perforation and feculent peritonitis. Inflamed and necrotic appearing uterus. Very thin anterior abdominal fascia with evidence of multiple mesh placements from prior operations. History of Present Illness: 70-year-old female with a medical history significant for nephrolithiasis (status post bilateral nephrostomy tubes in September 2024), endometrial cancer (in remission, s/p chemo and radiation), non-insulin dependent type 2 diabetes mellitus, anemia, and COPD presents with severe 10/10 abdominal pain and non- bloody vomiting that began one day ago. Patient reports that the abdominal pain is present even with slight movements. The abdominal pain is worse on the right lower quadrant. Patient endorses associated symptoms of fever, chills, and headache. A limited history was obtained from the patient due to significant pain, as she reports that even speaking exacerbates her discomfort. General surgery was consulted. Patient was admitted to the ICU for septic shock. ED Course: -Initial vitals were: BP 84/58, HR 72, RR 31, T 101.1F, O2 sat 100% on oxy mask. -Labs significant for: WBC 16.3, RBC 3.84, Hgb 10.2, Hct 33.7, MCHC 30.3, Plt 602, bicarbonate 15.8, anion gap 17, BUN 33, Cr 2.3, eGFR 22, glucose 154, lactic acid 4.8, ALT < 7, ALP 457, albumin 3.2, procalcitonin 25.58. VBG pH 7.26, pCO2 36, pO2 49, O2 sat 79%. Urinalysis WBC 1069, positive leukocyte esterase. -Imaging included: CT abd/pelvis: bilateral nephrostomy ureteral catheter with no significant hydronephrosis, acute sigmoid diverticulitis with localized rupture of diverticula and mild pelvic pneumoperitoneum. -In the ED, patient was given: LR 2.5L, pantoprazole 40 mg IV x1, Ciprofloxacin 400mg in 200 mls IV x1, hydromorphone 1 mg IV x1, Metronidazole 500 mg IV x1, acetaminophen 1000 mg IV x1, ondansetron 4mg IV x1. Past Medical History: as above Past Surgical History: bilateral nephrostomy tubes in September 2024, appendenctomy and cholecystectomy. Family History: extensive family history of cardiac disease and lung problems. Social History: - Smoking: denies - Alcohol: denies - Illicit drugs: denies - Residence: lives in [place] in a SNF. Current Medications: pending med recs. Allergies: cephalexin - diarrhea, sulfa antibiotics - rash, coconut oil - rash. Exam Vital Signs Temp Pulse Resp BP Pulse Ox O2 Del Method O2 Flow Rate 97.6 F 73 22 H 101/65 97 Mechanical Ventilation 100 05/21/25 16:00 05/21/25 16:35 05/21/25 13:43 05/21/25 16:15 05/21/25 16:35 05/21/25 16:00 05/20/25 17:34 FiO2 35 05/21/25 16:00 Narrative Exam Physical Exam General: Obese body habitus. Follows commands intermittently. Head: Normocephalic, atraumatic. Bilateral central line sites are clean, dry and intact. Eyes: Pupils equally round and reactive to light. Anicteric. Mouth/Throat: Moist mucous membranes. ETT in place. Heart: Regular rate and rhythm, no murmurs. No JVD. Lungs: Clear to auscultation with no wheezing or crackles. Non-labored respirations, symmetric chest rise, no use of accessory muscles. Abdomen: Soft and tender to touch, no rebound. Midline incision under bandage with daina, bruising at site. Ostomy LLQ. : No tomlinson, nephrostomy drains with minimal output. Neurologic: Alert and oriented x3, no gross neurological deficit, and patient able to move all 4 extremities. Extremities: No edema. Posterior tibial pulses are 2+ bilaterally. 2+ radial pulse bilaterally. No clubbing or cyanosis. No mottling. Left groin with hematoma at A-line site. Skin: No rash. Objective Labs 05/21/25 15:43 05/21/25 05:25 Labs: Laboratory Results - last 24 hr 05/20/25 05/20/25 05/20/25 08:42 17:49 18:33 WBC RBC Hgb Hct MCV MCH MCHC RDW Std Deviation Plt Count Neut % (Auto) Lymph % (Auto) Woods % (Auto) Eos % (Auto) Baso % (Auto) Neut # (Auto) Lymph # (Auto) Woods # (Auto) Eos # (Auto) Baso # (Auto) Immature Gran # (Auto) Absolute Nucleated RBC Immature Gran % Nucleated RBC % Smear Path Review Puncture Site Arterial Line ABG pH 7.49 H D ABG pCO2 35 ABG pO2 126 H D ABG HCO3 26 ABG O2 Saturation 99 H ABG Base Excess 3 FiO2 35 Sodium 137 Potassium 3.8 Chloride 97 L Carbon Dioxide 25.8 Anion Gap 14 BUN < 5 L Creatinine 0.3 L Estim Creat Clear Calc 169.5 eGFR > 60 BUN/Creatinine Ratio 17 Glucose 83 Calculated Osmolality 270 L Calcium 9.0 Corrected Calcium 9.6 Phosphorus 0.9 L* Magnesium Total Bilirubin AST ALT Alkaline Phosphatase Total Protein Albumin 3.3 L Globulin Albumin/Globulin Ratio Misc Test Result Blood Type O Positive Antibody Screen POSITIVE Antibody Identification Anti-E Crossmatch See Detail Blood Bank Wristband ID Yes Blood Bank Comment PLATP Ready 05/21/25 05/21/25 05/21/25 01:26 05:25 06:22 WBC 7.4 D RBC 2.40 L Hgb 6.8 L* 6.7 L* Hct 20.6 L* 20.5 L* MCV 86 MCH 28.3 MCHC 33.0 RDW Std Deviation 53.5 H Plt Count 39 L D Neut % (Auto) 87 H Lymph % (Auto) 6 L Woods % (Auto) 3 Eos % (Auto) 0 Baso % (Auto) 1 Neut # (Auto) 6.4 Lymph # (Auto) 0.4 L Woods # (Auto) 0.2 Eos # (Auto) 0.0 Baso # (Auto) 0.1 Immature Gran # (Auto) 0.29 H Absolute Nucleated RBC 0.00 Immature Gran % 4 H Nucleated RBC % 0 Smear Path Review Sent to Pathologist Puncture Site ABG pH ABG pCO2 ABG pO2 ABG HCO3 ABG O2 Saturation ABG Base Excess FiO2 Sodium 138 138 Potassium 4.4 D 4.4 Chloride 99 99 Carbon Dioxide 22.8 22.7 Anion Gap 16 16 BUN < 5 L 5 L Creatinine 0.6 0.7 Estim Creat Clear Calc 84.7 72.6 eGFR > 60 > 60 BUN/Creatinine Ratio 8 L 7 L Glucose 87 90 Calculated Osmolality 271 L 272 L Calcium 8.5 8.2 L Corrected Calcium 9.0 8.9 Phosphorus 2.7 2.7 Magnesium 1.7 Total Bilirubin 0.8 AST 21 ALT 10 Alkaline Phosphatase 139 H D Total Protein 4.5 L Albumin 3.4 3.1 L Globulin 1.4 L Albumin/Globulin Ratio 2.2 Misc Test Result Platelets confirmed Blood Type Antibody Screen Antibody Identification Crossmatch Blood Bank Wristband ID Blood Bank Comment 05/21/25 05/21/25 10:08 15:43 WBC RBC Hgb 8.2 L D Hct 24.4 L MCV MCH MCHC RDW Std Deviation Plt Count Neut % (Auto) Lymph % (Auto) Woods % (Auto) Eos % (Auto) Baso % (Auto) Neut # (Auto) Lymph # (Auto) Woods # (Auto) Eos # (Auto) Baso # (Auto) Immature Gran # (Auto) Absolute Nucleated RBC Immature Gran % Nucleated RBC % Smear Path Review Puncture Site Not Performed. ABG pH 7.45 ABG pCO2 34 ABG pO2 70 L D ABG HCO3 24 ABG O2 Saturation Not Performed. ABG Base Excess 0 FiO2 35 Sodium Potassium Chloride Carbon Dioxide Anion Gap BUN Creatinine Estim Creat Clear Calc eGFR BUN/Creatinine Ratio Glucose Calculated Osmolality Calcium Corrected Calcium Phosphorus Magnesium Total Bilirubin AST ALT Alkaline Phosphatase Total Protein Albumin Globulin Albumin/Globulin Ratio Misc Test Result Blood Type Antibody Screen Antibody Identification Crossmatch Blood Bank [facility] Blood Bank Comment ABG Interpretation ABG results: 05/16/25 05/16/25 05/16/25 12:11 18:26 19:18 ABG pH 7.41 ABG pCO2 29 L ABG pO2 86 ABG HCO3 18 L ABG O2 Saturation 96 ABG Base Excess -6 L VBG pH 7.26 L 7.36 VBG pCO2 36 32 L VBG pO2 49 46 VBG Base Excess -10 L -7 L 05/17/25 05/17/25 05/17/25 01:51 01:58 12:35 ABG pH 7.34 L 7.21 L D ABG pCO2 30 L 30 L ABG pO2 92 181 H D ABG HCO3 16 L 12 L ABG O2 Saturation 97 99 H ABG Base Excess -9 L -15 L VBG pH 7.28 L VBG pCO2 37 VBG pO2 60 H VBG Base Excess -9 L 05/17/25 05/17/25 05/18/25 15:12 22:59 04:06 ABG pH 7.17 L* 7.26 L 7.23 L ABG pCO2 32 26 L 32 ABG pO2 343 H D 298 H D 208 H D ABG HCO3 12 L 12 L 13 L ABG O2 Saturation 100 H 100 H 100 H ABG Base Excess -16 L -14 L -13 L VBG pH VBG pCO2 VBG pO2 VBG Base Excess 05/18/25 05/19/25 05/20/25 12:10 07:13 17:49 ABG pH 7.49 H D ABG pCO2 35 ABG pO2 126 H D ABG HCO3 26 ABG O2 Saturation 99 H ABG Base Excess 3 VBG pH 7.23 L 7.57 VBG pCO2 35 L 35 L VBG pO2 173 H D 36 D VBG Base Excess -12 L 10 H 05/21/25 10:08 ABG pH 7.45 ABG pCO2 34 ABG pO2 70 L D ABG HCO3 24 ABG O2 Saturation Not Performed. ABG Base Excess 0 VBG pH VBG pCO2 VBG pO2 VBG Base Excess Quality Measures Quality Measures VTE prophylaxis Advance care planning discussed with:: patient Assessment & Plan Assessment Current Active Medications: Generic Name Dose Route Start Last Admin Trade Name Freq PRN Reason Stop Dose Admin Gabapentin 300 mg 05/21/25 21:00 Gabapentin 300 Mg Capsule PO 06/20/25 20:59 HS JESSICA Heparin Sodium (Porcine) 1,300 unit 05/20/25 16:41 05/20/25 16:47 Heparin Sod Inj 1000 Unit/Ml Vial 10 Ml INDWELLCAT 06/03/25 16:40 1,300 unit PRN PRN Administration PER PROTOCOL Hydrocortisone Sodium Succinate 50 mg 05/19/25 12:00 05/21/25 12:00 Hydrocortisone Sod Succ Inj 100 Mg 2 Ml Vial IV 06/18/25 11:59 50 mg Q6HR JESSICA Administration Hydromorphone HCl 3 mg 05/21/25 11:44 Hydromorphone Inj 2 Mg/Ml Vial IVP 05/26/25 11:43 Q3HR PRN Breakthrough Pain 7-10 Norepinephrine/Dextrose 8 mg in 250 mls @ 6.785 mls/hr 05/16/25 17:49 05/21/25 15:00 Levophed In D5w 8mg/250ml IV 06/15/25 17:48 0.03 mcg/kg/min .Q24H PRN 4.071 mls/hr PER PROTOCOL Titration Protocol 0.05 MCG/KG/MIN Vasopressin/Sodium Chloride 20 unit in 100 mls @ 9 mls/hr 05/17/25 00:58 05/21/25 12:27 Vasostrict/Ns Ivpb IV 06/16/25 00:57 0.03 unit/min .Q11H7M PRN 9 mls/hr PER PROTOCOL Administration Protocol 0.03 UNIT/MIN Propofol 1,000 mg in 100 mls @ 2.214 mls/hr 05/17/25 14:19 05/19/25 07:30 Diprivan Ivpb IV 06/16/25 14:18 0 mcg/kg/min .Q24H PRN 0 mls/hr PER PROTOCOL Titration Protocol 5 MCG/KG/MIN Albumin Human 25 gm in 100 mls @ 100 mls/hr 05/19/25 07:30 05/21/25 14:50 Albuminex 25% Ivpb IV 05/24/25 07:29 Infused Q8HR JESSICA Infusion Piperacillin/Tazobactam/Dextrose 3.375 gm in 50 mls @ 12.5 mls/hr 05/19/25 14:00 05/21/25 13:50 Zosyn IV 05/26/25 13:59 12.5 mls/hr Q8HR JESSICA Administration Protocol Fentanyl Citrate 2,500 mcg in 250 mls @ 2.5 mls/hr 05/20/25 08:59 05/21/25 13:00 Sublimaze Inj 2,500 Mcg/250 Ml Bag IV 05/25/25 08:58 150 mcg/hr .Q24H PRN 15 mls/hr PER PROTOCOL Titration Protocol 25 MCG/HR Melatonin 3 mg 05/21/25 21:00 Melatonin 3 Mg Tablet PO 06/20/25 20:59 HS JESSICA Ondansetron HCl 4 mg 05/16/25 18:34 05/17/25 09:51 Ondansetron Inj 2 Mg/Ml Inj 2 Ml IVP 06/15/25 18:33 4 mg Q6H PRN Administration NAUSEA OR VOMITING Protocol Pantoprazole Sodium 40 mg 05/17/25 09:00 05/21/25 08:54 Pantoprazole Inj 40 Mg Vial IVP 06/16/25 08:59 40 mg QDAY JESSICA Administration Pharmacy Consult 1 each 05/16/25 16:37 Pharmacy Renal Dose Adjustment 1 Ea XX 06/15/25 16:36 PRN PRN CONSULT Plan 70-year-old female with history of nephrolithiasis (s/p bilateral nephrostomy tubes Sep 2024), endometrial cancer in remission, T2DM, and chronic anemia presenting with severe abdominal pain, vomiting, fever, and chills, found to have acute sigmoid diverticulitis with localized perforation and sepsis requiring ICU admission. Neurology #Chemical sedation Treatment Plan: - Weaned off propofol. - Melatonin 3mg PO HS to help prevent ICU delirium. #Post-operative pain Treatment Plan: - Decreased Fentanyl 300 to 150 mcg/h with CPOT score 1. - Gabapentin 300 mg PO HS (can also help prevent ICU delirium). - Hydromorphone 3 mg Q3HR PRN breakthrough pain. Cardiovascular #Septic shock, likely secondary to #Perforated sigmoid diverticulitis with feculent peritonitis DDx: septic shock (distributive) vs hypovolemia vs cardiogenic shock. Likely due to distributive shock from sepsis. Lactate > 2 despite adequate IV fluids (30 mL/kg). Poor clearance now due to renal failure. Check central saturation to correlate. No evidence of cardiogenic component at this time. Diagnostic Test: - Met 3/4 SIRS criteria on admission: T 101.1F, RR 31, WBC 16.3. - qSOFA score of 2 (RR 31 and SBP 84). - Confirmed or suspected infection: ruptured diverticulitis. - CT abd/pelvis: diverticulitis of large intestine with perforation. - End organ damage: WARREN due to sepsis: baseline Cr 0.8-1.3. Cr 2.3 on this admission. - Lactic acidosis due to sepsis: lactic acid level of 4.8 on admission. - Troponin < 0.002. - BP 84/58 on admission. - Echo 05/18: Normal LV size, wall thickness. Estimated LVEF at 60%. RV is normal in size and systolic function. Mild mitral regurgitation. Mild tricuspid regurgitation. - Urine culture- MDR Ecoli. - Blood culture - no growth. Treatment Review (completed) - Fluids: 30 mL/kg given in the ED. - S/p exploratory laparotomy, sigmoid colectomy with end descending colostomy and hysterectomy on 05/17. - Ciprofloxacin 400mg in 200mls IV Q12H (05/16-05/19) - Metronidazole 500mg in 100mls IV Q8H (05/16-05/19) Treatment Plan: - MDR Ecoli in urine, switched to Zosyn. - Strict I&O. - Maintain on stress dose steroids for now. - Plan to wean off Norepinephrine, then vasopressin and then stress dose steroids. Currently Levophed 0.03 mcg/kg/min and vasopressin 0.03 unit/min. Respiratory #Acute respiratory failure, post-op Patient intubated during surgical procedure, remains intubated and sedated. Diagnostic Test: - ABG 05/20: pH 7.49, pCO2 35, pO2 126, HCO3 26. - ABG 05/21: pH 7.45, pCO2 34, pO2 70, HCO3 24. Treatment plan: - Ventilator AC VC, tidal volume 440, respiratory rate 22, PEEP 5, FiO2 35, Ppeak 30.4, Pplateau 20.5. - Plan for extubation when pressors stopped. #History of COPD Diagnostic Test: - No cardinal symptoms of COPD exacerbation such as increase sputum purulence or volume, or increase dyspnea. - VBG 05/16 12:11 showed pH 7.26, pCO2 36. - VBG 05/16 18:26 showed pH 7.36, pCO2 32. - ABG 05/16 19:18 showed pH 7.41, pCO2 29, pO2 82, HCO3 18. - CXR 05/16: Significant left base pneumonia. - CXR 05/17: Prominent left base pneumonia. Treatment Plan: - Monitor O2 saturation and respiratory effort. - No steroids or bronchodilators unless COPD exacerbation evident. GI, , F/E/N #Perforated sigmoid diverticulitis with feculent peritonitis S/p exploratory laparotomy, sigmoid colectomy with end descending colostomy and hysterectomy on 05/17. Diagnostic Test: - CT abd/pelvis: acute sigmoid diverticulitis with localized rupture of diverticula and mild pelvic pneumoperitoneum. - Surgery findings: inflamed and thickened sigmoid with large perforation and feculent peritonitis. Inflamed and necrotic appearing uterus. Very thin anterior abdominal fascia with evidence of multiple mesh placements from prior operations. - Pathology report 05/16: uterus - endometroid carcinoma with extensive necrosis with negative surgical margins. Sigmoid colon - extensive diverticulosis with perforation and inflammation. Treatment Plan: - General surgery following, appreciate recommendations. - Per surgery input, avoid starting tube feeds if patient is still on vasopressors because of risk of gut ischemia. Consider TPN if patient continues to be on vasopressors. - Antibiotics as per above. - Ondansetron 4mg IV Q6H PRN for nausea. #History of endometrial cancer #Recurrent endometrial cancer Diagnostic Test: - Pathology report 05/16: uterus - endometroid carcinoma with extensive necrosis with negative surgical margins. Treatment Plan: - Being followed with Rad/Onc in [place]. Renal #Anion gap metabolic acidosis with compensated respiratory alkalosis (resolved) #Lactic acidosis (resolved) DDx: uremia vs lactic acidosis Diagnostic Test: - Patient continued to have worsening acidosis, no urine output, nephrology consulted. Treatment Plan: - Cleared now. - Continue on P[employer]ER [employer]ODU[employer] MACHINE OPERATOR, will discuss potential for fluid removal. - Albumin to facilitate mobilization of third spacing/ hypotension/ weaning pressors. #Acute kidney injury (resolved) #Anuria DDx: hypoperfusion vs sepsis vs obstrutive component from nephrostomy tubes vs anuria. Patient has not had any urine output to nephrostomy bag. Diagnostic Test: - Baseline Cr: 0.8-1.3. - Cr 2.3 on admission. - CT abd/pelvis: Bilateral nephrostomy ureteral catheter. Treatment Review (completed) - Started Tablo/P[employer]ER PRODU[employer] MACHINE OPERATOR on 05/19. - Continued P[employer]ODU[employer] MACHINE OPERATOR with goal -1L/24 hours. Stopped at 4pm on 05/20. Treatment Plan: - Daily renal panel to trend Cr. - Avoid nephrotoxins. - Renally dose meds as appropriate. - Strict I&Os, monitor urine output closely. - Hold P[employer]ODU[employer] MACHINE OPERATOR on 05/21, nephrology will reassess tomorrow based on urine output and volume status. - Document nephrostomy output separately. #Hematuria Diagnostic Test: - UA: RBC 54. Treatment Plan: - Follow-up outpatient with urology to work-up hematuria. #Obstrutive nephrolithiasis s/p nephrostomy tube Treatment Plan: - Continue with nephrostomy tube. - Monitor urine output. Heme #Normocytic anemia DDx: anemia of chronic disease vs iron-deficiency anemia vs reactive. Diagnostic Test: - Hemoglobin 05/21: 6.8 --> 6.7. Treatment Review (completed). - 2 units of pRBCs were transfused after surgery on 05/17. - 1 unit of pRBC transfused on 05/21 for hemoglobin of 6.7. Post-transfusion hemoglobin 8.2. Treatment Plan: - Monitor H&H. - Transfusing for Hgb <7 or symptomatic. - Held heparin subcutaneous for DVT PPX, SCD. Confirm with general surgery before restarting heparin. - Peripheral blood smear pending. #Thrombocyopenia DDx: Consumptive Diagnostic Test: - Plt 602 on admission. - Plt 419 on 05/17, 106 on 05/18 - Plt 11 05/19 - Plt 8 05/20 - Plt 39 post platelet transfusion 05/20. - Suspect consumptive in setting of significant open abdominal surgery Treatment Plan: - Monitor platelets, transfuse to keep > 10k, >20k for invasive procedures #Leukocytosis (resolved) DDx: reactive vs URI vs pneumonia Diagnostic Test: . - WBC: 14.6 --> 16.3 --> 17.3--> 13.7 Treatment Plan - Continue to treat UTI/ intrabdominal infection with Zosyn Endo #Noninsulin dependent T2DM Diagnostic Test: - Hemoglobin A1c on 05/12/2025 was 5.2. - Blood glucose 154 on admission. - Glucose at goal <180. Treatment Plan: - Continue to check blood glucose levels. - Will start insulin if need better glycemic control. ID #E. Coli urinary tract infection Diagnostic Test: - Urinalysis: blood 2+, RBC 54, WBC 1069, bacteria 4+, positive leukocyte esterase. - Patient has history of positive UAs. - 10/31/24 urine culture: Klebsiella. Started Ciprofloxacin 400 mg. - Urine culture 05/16 showed E. Coli. Treatment Review (completed): - Ciprofloxacin (05/17-05/19). Treatment Plan: - Zosyn dosing per pharmacy for E.coli on urine culture (05/19-). Health Maintenance: DVT prophylaxis: SCDs, not appropriate for chemcial prophylaxis due to PLT <50k GI prophylaxis: Pantoprazole 40 mg IV daily Diet: NPO Tomlinson: none Lines: left IJ central line, right IJ dialysis cath, left femoral arterial line Drips: Levophed , Vasopressin, fentanyl Vent: AC CODE STATUS: FULL CODE Patient plan of care was discussed with the senior resident, Dr. Anguiano, and attending physician, Dr. Coker. Becca Diop DO Internal Medicine PGY-1 Attending Provider Attestation/Addendum Patient seen and examined with the above resident, Becca Walter DO. I agree with the findings, assessment, and plan of care as documented except for any differences below. Patient with dramatic improvement in pressor requirements. Responded to cessation of P[employer] MACHINE OPERATOR and platelet transfusion. Nearly off levophed, wean as tolerated and transition off vasopressin thereafter. Remains off sedation, reduced fentanyl as tolerated and PRN dosing of dilaudid for wound care/ position changes. Remains stable on lung protective ventilation. Antibiotic, Zosyn, adequate for organisms on culture with known ESBL and all pulmonary, urinary tract, and intra-abdominal infections covered. Patients renal function unchanged, expect repeat HD tomorrow with possibility to pull fluids. Stress dose steroids remain in place and may transition to midodrine based on response tomorrow. No TF at this time per surgery. No chemical prophylaxis. Protonix onboard. BG controlled. Total critical care time: I personally spent 40 minutes for review of physiologic parameters, directing plan of care throughout the day, and coordination of care with other specialists. This is exclusive of time spent teaching housestaff or performing any separate billable procedures. Patient remains at significant risk for further morbidity and mortality warranting close monitoring and care only available in the ICU. Critical care services required for septic shock, acute hypoxic respiratory failure, acute renal failure, and viscus perfration with peritonitis s/p colectomy/ hysterectmy with endometrial CA.
[2025-05-21] MEDS: HYDROmorphone INJ 2 MG/ML VIAL 3 MG IVP ×2 (18:17→21:42)
[2025-05-21] MEDS: fentaNYL 2,500 MCG/250 ML BAG 2,500 MCG/250 ML BAG 15 MCG IV (20:00)
[2025-05-21] MEDS: GABAPENTIN 300 MG CAPSULE PO (20:00)
[2025-05-21] MEDS: MELATONIN 3 MG TABLET PO (20:00)
[2025-05-22] VITALS (101 sets, daily range): BP systolic 63–207; BP diastolic 35–200; PULSE 56–90; RESP 12–28; TEMP 36.6–37.2; O2SAT 89–100; BMI 35.4
[2025-05-22] MEDS: VASOPRESSIN IN NS IVPB 20 UNIT/100 ML BAG 9 UNIT IV (00:45)
[2025-05-22 05:10] LABS: Allen Test Performed/OK; Base Excess -2 (-3-3); HCO3 22 mEq/L (20-26); Inspired Oxygen, FIO2 35 %; O2 Saturation 99 % (91-98); PCO2 32 mmHg (32.0-48.0); PO2 140 mmHg (83-108); Puncture Site Arterial Line; pH, Arterial 7.44 (7.35-7.45)
[2025-05-22] MEDS: ALBUMIN HUMAN-KJDA 25% IVPB 25 GM/100 ML BTL IV ×3 (05:11→21:03)
[2025-05-22] MEDS: HYDROCORTISONE SOD SUCC INJ 100 MG 2 ML VIAL 50 MG IV ×4 (05:11→23:09)
[2025-05-22] MEDS: PIPER/TAZO 3.375 GM PREMIX 3.375 GM/50 ML BAG IV ×3 (05:12→22:15)
[2025-05-22] MEDS: HYDROmorphone INJ 2 MG/ML VIAL 3 MG IVP ×2 (05:12→10:04)
[2025-05-22 06:45] LABS: Basophils # (Auto) 0.0 Thou/mm3 (0.0-0.2); Basophils % (Auto) 1 % (0-2.5); Eosinophils # (Auto) 0.0 Thou/mm3 (0.0-0.5); Eosinophils % (Auto) 0 % (0-10); Hematocrit 26.4 % (36.0-46.0); Immature Granulocytes Auto 0.20 Thou/mm3 (0.00-0.00); Lymphocytes # (Auto) 0.5 Thou/mm3 (1.0-4.8); Lymphocytes % (Auto) 7 % (10-50); Mean Corpuscular HGB Conc 32.2 g/dl (31.0-37.0); Mean Corpuscular Hemoglobin 27.9 pg (25.0-35.0); Mean Corpuscular Volume 87 fL (80-100); Monocytes # (Auto) 0.2 Thou/mm3 (0.0-0.8); Monocytes % (Auto) 3 % (0-12); Neutrophils # (Auto) 6.0 Thou/mm3 (1.8-7.7); Neutrophils % (Auto) 86 % (37-80); Nucleated Red Blood Cell # 0.04 Thou/mm3 (0.00-0.00); Nucleated Red Blood Cell % 1 /100 WBC (0); RDW Standard Deviation 55.4 fL (36.4-46.3); Red Blood Count 3.05 Miln/mm3 (4.00-5.20); White Blood Count 7.0 Thou/mm3 (3.6-11.0)
[2025-05-22 06:57] LABS: Hemoglobin 8.5 g/dL (12.0-16.0); Platelet Count 30 Thou/mm3 (140-440)
[2025-05-22 07:03] LABS: Carbon Dioxide 19.9 mMol/L (20.0-31.0); Chloride 99 mMol/L (98-107); Potassium 4.4 mMol/L (3.4-5.1); Sodium 138 mMol/L (136-145)
[2025-05-22 07:04] LABS: Alanine Aminotransferase 10 U/L (10-49); Albumin, Serum 3.7 gm/dL (3.4-4.8); Albumin/Globulin Ratio 2.5 (1.2-2.2); Alkaline Phosphatase 131 U/L (46-116); Anion Gap 19 (7-16); Aspartate Amino Transferase 17 U/L (0-34); BUN/Creatinine Ratio 10 Ratio (12-20); Bilirubin,Total 1.0 mg/dL (0.3-1.2); Blood Urea Nitrogen 13 mg/dL (9-23); Calcium 8.5 mg/dL (8.3-10.6); Calcium (Corrected) 8.7 mg/dL (8.5-10.1); Creatinine (Component) 1.3 mg/dL (0.6-1.3); Estimated Creatinine Clearance 40.5 mL/min (>60); Globulin 1.5 gm/dL (2.3-3.5); Glucose 95 mg/dL (74-106); Magnesium 1.8 mg/dL (1.6-2.6); Osmolality,Calculated 275 (275-295); Phosphorous 2.1 mg/dL (2.4-5.1); Total Protein 5.2 gm/dL (5.7-8.2); eGFR 44 See Note
[2025-05-22 08:09] LABS: Slide Review Platelets confirmed
--- NOTE | 2025-05-22 08:52 | ESPR_ITS ---
Documentation for date of: 05/22/25 Subjective Subjective Interval history: Reason for consult: Oliguria/Anuria - WARREN in ICU patient post-septic shock and exploratory lap History of present illness: 70-year-old female with a history of nephrolithiasis (s/p bilateral nephrostomy tubes placed Sep 2024), endometrial cancer in remission, type 2 diabetes mellitus, chronic anemia, and COPD, admitted with perforated sigmoid diverticulitis and feculent peritonitis. She underwent exploratory laparotomy, sigmoid colectomy with end descending colostomy, and hysterectomy on 05/17. Nephrology was re-consulted today for no urine output. Overnight urine output was 50 cc total, despite adequate fluid resuscitation and pressor support (on norepinephrine and vasopressin). Patient remains in the ICU, intubated and sedated on propofol/fentanyl, receiving broad-spectrum antibiotics (ciprofloxacin + metronidazole). 05/18/2025: Patient seen in ICU during morning rounds. Intubated, sedated, on vasopressor support. No urine output noted from nephrostomy tubes or Bal. Nursing reports total 50 cc output overnight. No new fevers reported. BP 112/57 mmHg, HR 82. Labs: WBC 18.6, Hgb 10.4, Hct 31.6, Plt 106 (yesterday 419), Na 136, K 5.4, Cl 108, CO2 13.4, BUN 40, Cr 2.5 (GFR 20), Ca 8.8, Phos 6.0, Mg 2.1, Albumin 2.7, Alk Phos 176, Lactic acid 3.0->3.2. ABG: pH 7.30, pCO2 32, HCO3 13. 05/19/2025: Patient currently seen in ICU. On CRRT. On ventilator. Patient more alert and awake. No urine output from nephrostomy tubes or Bal. She had a sigmoid resection and colostomy with minimal stool. Labs, medications reviewed. Will continue with CRRT for next [address] Coker who is at bedside. 05/21/2025: Patient seen today in the ICU. She remains intubated, sedated, and critically ill. No significant urine output noted overnight; nephrostomy tubes remain with minimal drainage. Blood pressure stable on low-dose pressor support. No plans for LAMINATING MACHINE TENDER today, will re-evaluate tomorrow based on hemodynamics, urine output, and lab trends. Labs: WBC 7.4, Hgb 6.8, Hct 20.6, Plt 39, Na 130, K 4.4, Cl 99, CO2 22.7, Cr 0.7 (GFR >60), Ca 8.9, Phos 2.7, Mg 1.7. ABG: pH 7.45, pCO2 34, HCO3 24. No acute respiratory distress noted; acidosis resolved. 05/22/2025: Patient seen today in the ICU. Still intubated and sedated, overall condition unchanged from yesterday. No urine output overnight; bilateral nephrostomy tubes with minimal drainage (~20 cc total). No dialysis planned for today. Will trial Bumex 2 mg IV twice daily with albumin 25 g IV twice daily to assess for diuretic responsiveness. Will re-evaluate tomorrow for potential dialysis depending on output and lab trends. BP 99/61, HR 65. Labs: WBC 7.0, Hgb 8.5, Hct 26, Plt 30, Na 138, K 4.4, Cl 99, CO2 20, BUN 13, Cr 1.3, Ca 8.7, Phos 2.1, Mg 1.8. Exam Vital Signs Temp Pulse Resp BP Pulse Ox O2 Del Method O2 Flow Rate 98.9 F 65 22 H 99/61 98 Mechanical Ventilation 100 05/22/25 04:00 05/22/25 07:15 05/21/25 13:43 05/22/25 07:15 05/22/25 07:15 05/22/25 00:00 05/20/25 17:34 FiO2 35 05/22/25 06:47 Narrative Exam General: Intubated, sedated, critically ill. CV: Regular rate and rhythm, no murmurs, no JVD. Resp: Ventilated breath sounds equal bilaterally, no wheezes or crackles. Abdomen: Soft, post-op dressing clean/dry/intact, colostomy with minimal output. : Bilateral nephrostomy tubes with minimal drainage. Extremities: Warm, trace edema. Neuro: Sedated, opens eyes intermittently. Objective Labs 05/23/25 04:50 05/23/25 04:50 Labs: Laboratory Results - last 24 hr 05/20/25 05/21/25 05/21/25 08:42 10:08 15:43 WBC RBC Hgb 8.2 L D Hct 24.4 L MCV MCH MCHC RDW Std Deviation Plt Count Neut % (Auto) Lymph % (Auto) [place] % (Auto) Eos % (Auto) Baso % (Auto) Neut # (Auto) Lymph # (Auto) [place] # (Auto) Eos # (Auto) Baso # (Auto) Immature Gran # (Auto) Absolute Nucleated RBC Immature Gran % Nucleated RBC % Smear Path Review Cancelled Puncture Site Not Performed. ABG pH 7.45 ABG pCO2 34 ABG pO2 70 L D ABG HCO3 24 ABG O2 Saturation Not Performed. ABG Base Excess 0 FiO2 35 Sodium Potassium Chloride Carbon Dioxide Anion Gap BUN Creatinine Estim Creat Clear Calc eGFR BUN/Creatinine Ratio Glucose Calculated Osmolality Calcium Corrected Calcium Phosphorus Magnesium Total Bilirubin AST ALT Alkaline Phosphatase Total Protein Albumin Globulin Albumin/Globulin Ratio Misc Test Result Blood Type O Positive Antibody Screen POSITIVE Antibody Identification Anti-E Crossmatch See Detail Blood Bank Wristband ID Yes Blood Bank Comment PLATP Ready 05/22/25 05/22/25 04:55 04:59 WBC 7.0 RBC 3.05 L Hgb 8.5 L Hct 26.4 L MCV 87 MCH 27.9 MCHC 32.2 RDW Std Deviation 55.4 H Plt Count 30 L D Neut % (Auto) 86 H Lymph % (Auto) 7 L [place] % (Auto) 3 Eos % (Auto) 0 Baso % (Auto) 1 Neut # (Auto) 6.0 Lymph # (Auto) 0.5 L [place] # (Auto) 0.2 Eos # (Auto) 0.0 Baso # (Auto) 0.0 Immature Gran # (Auto) 0.20 H Absolute Nucleated RBC 0.04 H Immature Gran % 3 H Nucleated RBC % 1 H Smear Path Review Puncture Site Arterial Line ABG pH 7.44 ABG pCO2 32 ABG pO2 140 H D ABG HCO3 22 ABG O2 Saturation 99 H ABG Base Excess -2 FiO2 35 Sodium 138 Potassium 4.4 Chloride 99 Carbon Dioxide 19.9 L Anion Gap 19 H BUN 13 Creatinine 1.3 D Estim Creat Clear Calc 40.5 L eGFR 44 L BUN/Creatinine Ratio 10 L Glucose 95 Calculated Osmolality 275 Calcium 8.5 Corrected Calcium 8.7 Phosphorus 2.1 L Magnesium 1.8 Total Bilirubin 1.0 AST 17 ALT 10 Alkaline Phosphatase 131 H Total Protein 5.2 L Albumin 3.7 D Globulin 1.5 L Albumin/Globulin Ratio 2.5 H Misc Test Result Platelets confirmed Blood Type Antibody Screen Antibody Identification Crossmatch Blood Bank Wristband ID Blood Bank Comment ABG Interpretation ABG results: 05/16/25 05/16/25 05/16/25 12:11 18:26 19:18 ABG pH 7.41 ABG pCO2 29 L ABG pO2 86 ABG HCO3 18 L ABG O2 Saturation 96 ABG Base Excess -6 L VBG pH 7.26 L 7.36 VBG pCO2 36 32 L VBG pO2 49 46 VBG Base Excess -10 L -7 L 05/17/25 05/17/25 05/17/25 01:51 01:58 12:35 ABG pH 7.34 L 7.21 L D ABG pCO2 30 L 30 L ABG pO2 92 181 H D ABG HCO3 16 L 12 L ABG O2 Saturation 97 99 H ABG Base Excess -9 L -15 L VBG pH 7.28 L VBG pCO2 37 VBG pO2 60 H VBG Base Excess -9 L 05/17/25 05/17/25 05/18/25 15:12 22:59 04:06 ABG pH 7.17 L* 7.26 L 7.23 L ABG pCO2 32 26 L 32 ABG pO2 343 H D 298 H D 208 H D ABG HCO3 12 L 12 L 13 L ABG O2 Saturation 100 H 100 H 100 H ABG Base Excess -16 L -14 L -13 L VBG pH VBG pCO2 VBG pO2 VBG Base Excess 05/18/25 05/19/25 05/20/25 12:10 07:13 17:49 ABG pH 7.49 H D ABG pCO2 35 ABG pO2 126 H D ABG HCO3 26 ABG O2 Saturation 99 H ABG Base Excess 3 VBG pH 7.23 L 7.57 VBG pCO2 35 L 35 L VBG pO2 173 H D 36 D VBG Base Excess -12 L 10 H 05/21/25 05/22/25 10:08 04:59 ABG pH 7.45 7.44 ABG pCO2 34 32 ABG pO2 70 L D 140 H D ABG HCO3 24 22 ABG O2 Saturation Not Performed. 99 H ABG Base Excess 0 -2 VBG pH VBG pCO2 VBG pO2 VBG Base Excess Quality Measures Quality Measures VTE prophylaxis Advance care planning discussed with:: patient Assessment & Plan Assessment Current Active Medications: Generic Name Dose Route Start Last Admin Trade Name Tomas PRN Reason Stop Dose Admin Gabapentin 300 mg 05/21/25 21:00 05/21/25 20:00 Gabapentin 300 Mg Capsule PO 06/20/25 20:59 300 mg HS JESSICA Administration Heparin Sodium (Porcine) 1,300 unit 05/20/25 16:41 05/20/25 16:47 Heparin Sod Inj 1000 Unit/Ml Vial 10 Ml INDWELLCAT 06/03/25 16:40 1,300 unit PRN PRN Administration PER PROTOCOL Hydrocortisone Sodium Succinate 50 mg 05/19/25 12:00 05/22/25 05:11 Hydrocortisone Sod Succ Inj 100 Mg 2 Ml Vial IV 06/18/25 11:59 50 mg Q6HR JESSICA Administration Hydromorphone HCl 3 mg 05/21/25 11:44 05/22/25 05:12 Hydromorphone Inj 2 Mg/Ml Vial IVP 05/26/25 11:43 3 mg Q3HR PRN Administration Breakthrough Pain 7-10 Norepinephrine/Dextrose 8 mg in 250 mls @ 6.785 mls/hr 05/16/25 17:49 05/22/25 07:00 Levophed In D5w 8mg/250ml IV 06/15/25 17:48 0.03 mcg/kg/min .Q24H PRN 4.071 mls/hr PER PROTOCOL Titration Protocol 0.05 MCG/KG/MIN Vasopressin/Sodium Chloride 20 unit in 100 mls @ 9 mls/hr 05/17/25 00:58 05/22/25 07:00 Vasostrict/Ns Ivpb IV 06/16/25 00:57 0 unit/min .Q11H7M PRN 0 mls/hr PER PROTOCOL Titration Protocol 0.03 UNIT/MIN Propofol 1,000 mg in 100 mls @ 2.214 mls/hr 05/17/25 14:19 05/19/25 07:30 Diprivan Ivpb IV 06/16/25 14:18 0 mcg/kg/min .Q24H PRN 0 mls/hr PER PROTOCOL Titration Protocol 5 MCG/KG/MIN Albumin Human 25 gm in 100 mls @ 100 mls/hr 05/19/25 07:30 05/22/25 05:11 Albuminex 25% Ivpb IV 05/24/25 07:29 100 mls/hr Q8HR JESSICA Administration Piperacillin/Tazobactam/Dextrose 3.375 gm in 50 mls @ 12.5 mls/hr 05/19/25 14:00 05/22/25 05:12 Zosyn IV 05/26/25 13:59 12.5 mls/hr Q8HR JESSICA Administration Protocol Fentanyl Citrate 2,500 mcg in 250 mls @ 2.5 mls/hr 05/20/25 08:59 05/22/25 07:28 Sublimaze Inj 2,500 Mcg/250 Ml Bag IV 05/25/25 08:58 100 mcg/hr .Q24H PRN 10 mls/hr PER PROTOCOL Titration Protocol 25 MCG/HR Magnesium Sulfate/Dextrose 1 gm in 100 mls @ 100 mls/hr 05/22/25 08:00 Magnesium Sulfate Ivpb IV 05/22/25 08:59 X1 ONE Potassium Phosphate 15 mmol in 250 mls @ 62.5 mls/hr 05/22/25 08:03 Pot Phos 15 Mmol In Ns 250 Ml IV 05/22/25 12:02 X1 ONE Melatonin 3 mg 05/21/25 21:00 05/21/25 20:00 Melatonin 3 Mg Tablet PO 06/20/25 20:59 3 mg HS JESSICA Administration Ondansetron HCl 4 mg 05/16/25 18:34 05/17/25 09:51 Ondansetron Inj 2 Mg/Ml Inj 2 Ml IVP 06/15/25 18:33 4 mg Q6H PRN Administration NAUSEA OR VOMITING Protocol Pantoprazole Sodium 40 mg 05/17/25 09:00 05/21/25 08:54 Pantoprazole Inj 40 Mg Vial IVP 06/16/25 08:59 40 mg QDAY JESSICA Administration Pharmacy Consult 1 each 05/16/25 16:37 Pharmacy Renal Dose Adjustment 1 Ea XX 06/15/25 16:36 PRN PRN CONSULT Plan 70F with history of nephrolithiasis (s/p bilateral nephrostomy tubes), endometrial cancer in remission, T2DM, COPD, and recent colectomy/colostomy for perforated diverticulitis complicated by septic shock and WARREN. Patient remains oliguric/anuric post-CRRT with stable renal function (Cr 1.3) and improving hemodynamics. No LAMINATING MACHINE TENDER indicated today; starting Bumex and albumin for renal stimulation. # Acute Kidney Injury Likely recovering ATN following septic shock and prior CRRT. Creatinine 1.3 with persistent anuria. Plan: * No dialysis today; reassess tomorrow for possible LAMINATING MACHINE TENDER. * Start Bumex 2 mg IV BID + albumin 25 g IV BID to promote diuresis. * Continue strict I&O documentation and daily renal panel. * Maintain MAP >65 mmHg for renal perfusion. * Avoid nephrotoxins, renally dose antibiotics. # Metabolic Acidosis Resolved; ABG normalized (HCO3 20). Plan: * Continue to monitor ABG and metabolic panel daily. * No bicarbonate or LAMINATING MACHINE TENDER indicated today. # Hypophosphatemia # Hypomagnesemia Resolved, Phos 2.1, Mg 1.8 Plan: * Replete phosphorus and magnesium as needed to maintain within normal range. * Recheck electrolytes in the morning. # Septic Shock Improved; remains on low-dose vasopressors. MDR E. coli UTI source; on Zosyn. Plan: * Continue antibiotics per ICU/ID guidance. * Monitor lactate and hemodynamics. Other problems: #Diverticulitis of large intestine with perforation (s/p exploratory laparotomy, sigmoid colectomy, colostomy, hysterectomy on 05/17) #Postoperative state (post-surgical, day 5) #Leukocytosis #Normocytic anemia #Thrombocytopenia #Lactic acidosis #Hyponatremia (resolved) #Presence of nephrostomy tubes bilaterally #Presence of colostomy #Type 2 diabetes mellitus (controlled, A1C 5.2) #COPD #Endometrial cancer, in remission #Mechanical ventilation dependence Management per ICU team ----- Plan discussed with attending physician Dr. Garcia Jackson MD PGY-1 Internal Medicine Attending Provider Attestation/Addendum Patient seen and examined with resident physician Dr. Jackson. Note reviewed, agree with findings and recommendations. Urine output still remains low. Will add Bumex with albumin today. Patient intubated-possible extubation today. Will hold off on dialysis. Spoke to ICU team.
[2025-05-22] MEDS: POT PHOS 15 mMol in NS 250 ML 15 MMOL/250 ML BAG 62.5 MMOL IV (09:23)
--- NOTE | 2025-05-22 10:10 | ESPR_ITS ---
<Statement entered by Tim Anguiano MD - 05/22/25 15:58> Patient seen and examined at bedside. I discussed and supervised with the analysis internship physician who took care of this patient. I personally saw and examined the patient. I agree with most of the assessment and plan. Patient pressor requirements continue to decrease. Continued to down titrate fentanyl, patient able to be weaned off. Receiving as needed Dilaudid pushes for breakthrough pain. Initiating trophic feeds. Left IJ central line removed today. Per nephrology recommendations, will perform albumin challenge with 2 mg IV Bumex twice daily. Will reevaluate need for dialysis tomorrow. Based on patient's continued clinical improvement, will evaluate potential extubation tomorrow. Plan of care discussed with attending Dr. Coker. Tim Anguiano MD PGY-2 Documentation for date of: 05/22/25 Subjective Subjective Interval history: 05/22/2025: Overnight patient had good output in colostomy bag, about 425 mL. Urine output was decreased from yesterday, totaling about 15 cc over the past 12 hours. Patient was weaned off vasopressin yesterday. Currently patient remains on Levophed 0.03 mcg/kg/min and fentanyl infusion at 100 mcg/hr, will continue to gradually taper. Per nursing staff, the current pain management is effective with good pain control reported. Trophic enteral feeds will start today. Plan to remove the left IJ central line and maintain the right IJ central line for dialysis access. Per nephrology recommendations, trial Bumex 2mg IV twice daily and albumin 25g IV twice daily to assess for diuretic responsiveness. Will re-evaluate tomorrow to see if dialysis is needed. ABG this morning showed a respiratory alkalosis. The respiratory rate on the ventilator was decreased from 22 to 20 breaths per minute. 05/21/2025: Overnight, the patient's hemoglobin dropped to 6.8, with a repeat value of 6.7. One unit of packed red blood cells was transfused, resulting in a post-transfusion hemoglobin of 8.2. Blood smear is planned to further evaluate anemia. Platelet count was 8 on 05/20, and following transfusion, improved to 39. Phosphorus level was 0.9, and after potassium phosphate repletion, increased to 2.7. Urine output was approximately 38 cc over the past 12 hours. Per nursing staff, patient had a formed bowel movement in the ostomy. Patient remains on pressors with norepinephrine at 0.03 mcg/kg/min and vasopressin at 0.03 units/min. Plan is to continue gradual weaning as tolerated. Fentanyl infusion was at 300 mcg/hr earlier today and has been tapered to 150 mcg/hr. To support pain control during the fentanyl taper, gabapentin 300 mg PO at bedtime and hydromorphone 3 mg Q3H PRN have been added to the regimen. 05/20/2025: Patient is seen and examined in ICU. Intubated and sedated. She was started on dialysis. Now has thrombocytopenia 05/19/2025: No fever overnight. Minimal outpt form ostomy, mostly red/ serous. Chucks remain dry, no UOP. No tomlinson in place. Nephrostomy tubes flushed with minimal output. Patient remains on levophed at 0.3 mcg/kg/min and vasopressin. Patient spontaneously opening eys with sedation slowly tapered overnight, bradycardia to 52- remained SB. About to complete first round of Tablo, plan for one hour break pending input form nephrology. Alkalotic on AM labs. 05/18/2025: Patient Levophed uptitrated overnight. Patient continues to have no urinary output with worsening renal function and acidosis on labs, right IJ Vas- Cath placed and Tablo dialysis initiated. Patient also developed significant thrombocytopenia, suspect consumptive following large surgery. Last goals updated 2-2. Over course of dialysis, Levophed was able to be down titrated, remains greater than 0.2. Echocardiogram ordered due to ongoing elevated pressor requirements. 05/17/2025: Overnight, NICOM was used to assess fluid responsiveness, and it indicated that the patient is 39% fluid responsive. The patient was on levophed at 0.19 mcg/kg/min and received 12.5 grams of albumin in 50 mL, along with 1L of LR, to address her low blood pressure. For abdominal pain management, the patient was given 0.5 mg of Dilaudid x2, IV Tylenol, a lidocaine patch, and a scopolamine patch. Additionally, the patient received 4 mg of Zofran for nausea. According to nursing staff, the patient had a diaper with a moderate amount of urine but no urine output in the nephrostomy bag. The patient refused a Tomlinson catheter and a purewick was placed instead. A bladder scan showed no urine production. The patient has not been producing urine. Nephrology recommended increasing fluid intake and flushing the nephrostomy tubes. Vasopressin was eventually added for her low blood pressures. A right femoral arterial line was placed before patient went to surgery. Patient underwent an exploratory laparotomy, sigmoid colectomy with end descending colostomy and hysterectomy. Findings from the operation: Inflamed and thickened sigmoid with large perforation and feculent peritonitis. Inflamed and necrotic appearing uterus. Very thin anterior abdominal fascia with evidence of multiple mesh placements from prior operations. History of Present Illness: 70-year-old female with a medical history significant for nephrolithiasis (status post bilateral nephrostomy tubes in September 2024), endometrial cancer (in remission, s/p chemo and radiation), non-insulin dependent type 2 diabetes mellitus, anemia, and COPD presents with severe 10/10 abdominal pain and non- bloody vomiting that began one day ago. Patient reports that the abdominal pain is present even with slight movements. The abdominal pain is worse on the right lower quadrant. Patient endorses associated symptoms of fever, chills, and headache. A limited history was obtained from the patient due to significant pain, as she reports that even speaking exacerbates her discomfort. General surgery was consulted. Patient was admitted to the ICU for septic shock. ED Course: -Initial vitals were: BP 84/58, HR 72, RR 31, T 101.1F, O2 sat 100% on oxy mask. -Labs significant for: WBC 16.3, RBC 3.84, Hgb 10.2, Hct 33.7, MCHC 30.3, Plt 602, bicarbonate 15.8, anion gap 17, BUN 33, Cr 2.3, eGFR 22, glucose 154, lactic acid 4.8, ALT < 7, ALP 457, albumin 3.2, procalcitonin 25.58. VBG pH 7.26, pCO2 36, pO2 49, O2 sat 79%. Urinalysis WBC 1069, positive leukocyte esterase. -Imaging included: CT abd/pelvis: bilateral nephrostomy ureteral catheter with no significant hydronephrosis, acute sigmoid diverticulitis with localized rupture of diverticula and mild pelvic pneumoperitoneum. -In the ED, patient was given: LR 2.5L, pantoprazole 40 mg IV x1, Ciprofloxacin 400mg in 200 mls IV x1, hydromorphone 1 mg IV x1, Metronidazole 500 mg IV x1, acetaminophen 1000 mg IV x1, ondansetron 4mg IV x1. Past Medical History: as above Past [facility]ctomy and cholecystectomy. Family History: extensive family history of cardiac disease and lung problems. Social History: - Smoking: denies - Alcohol: denies - Illicit drugs: denies - Residence: lives in [place] in a SNF. Current Medications: pending med recs. Allergies: cephalexin - diarrhea, sulfa antibiotics - rash, coconut oil - rash. Exam Vital Signs Temp Pulse Resp BP Pulse Ox O2 Del Method O2 Flow Rate 98.9 F 65 22 H 99/61 98 Mechanical Ventilation 100 05/22/25 04:00 05/22/25 07:15 05/21/25 13:43 05/22/25 07:15 05/22/25 07:15 05/22/25 00:00 05/20/25 17:34 FiO2 35 05/22/25 06:47 Narrative Exam Physical Exam General: Obese body habitus. Follows commands. Head: Normocephalic, atraumatic. Bilateral central line sites are clean, dry and intact. Eyes: Pupils equally round and reactive to light. Anicteric. Mouth/Throat: Moist mucous membranes. ETT in place. Heart: Regular rate and rhythm, no murmurs. No JVD. Lungs: Bilateral rhonchi heard on auscultation. Non-labored respirations, symmetric chest rise, no use of accessory muscles. Abdomen: Soft and tender to touch, no rebound. Midline incision under bandage with daina, bruising at site. Ostomy LLQ. : No tomlinson, nephrostomy drains with minimal output. Neurologic: Alert and oriented x3, no gross neurological deficit, and patient able to move all 4 extremities. Extremities: Mild edema of hands. Posterior tibial pulses are 2+ bilaterally. 2+ radial pulse bilaterally. No clubbing or cyanosis. No mottling. Left groin with hematoma at A-line site. Skin: No rash. Objective Labs 05/30/25 17:30 05/30/25 04:35 Labs: Laboratory Results - last 24 hr 05/16/25 05/20/25 05/21/25 12:11 08:42 10:08 WBC RBC Hgb Hct MCV MCH MCHC RDW Std Deviation Plt Count Neut % (Auto) Lymph % (Auto) [place] % (Auto) Eos % (Auto) Baso % (Auto) Neut # (Auto) Lymph # (Auto) [place] # (Auto) Eos # (Auto) Baso # (Auto) Immature Gran # (Auto) Absolute Nucleated RBC Immature Gran % Nucleated RBC % Smear Path Review Puncture Site Not Performed. ABG pH 7.45 ABG pCO2 34 ABG pO2 70 L D ABG HCO3 24 ABG O2 Saturation Not Performed. ABG Base Excess 0 FiO2 35 Sodium Potassium Chloride Carbon Dioxide Anion Gap BUN Creatinine Estim Creat Clear Calc eGFR BUN/Creatinine Ratio Glucose Calculated Osmolality Calcium Corrected Calcium Phosphorus Magnesium Total Bilirubin AST ALT Alkaline Phosphatase Total Protein Albumin Globulin Albumin/Globulin Ratio Misc Test Result Blood Type O Positive O Positive Antibody Screen POSITIVE POSITIVE Antibody Identification Anti-E Anti-E Crossmatch See Detail See Detail Blood Bank Wristband ID Yes Yes Blood Bank Comment PLATP Ready 05/21/25 05/22/25 05/22/25 15:43 04:55 04:59 WBC 7.0 RBC 3.05 L Hgb 8.2 L D 8.5 L Hct 24.4 L 26.4 L MCV 87 MCH 27.9 MCHC 32.2 RDW Std Deviation 55.4 H Plt Count 30 L D Neut % (Auto) 86 H Lymph % (Auto) 7 L [place] % (Auto) 3 Eos % (Auto) 0 Baso % (Auto) 1 Neut # (Auto) 6.0 Lymph # (Auto) 0.5 L [place] # (Auto) 0.2 Eos # (Auto) 0.0 Baso # (Auto) 0.0 Immature Gran # (Auto) 0.20 H Absolute Nucleated RBC 0.04 H Immature Gran % 3 H Nucleated RBC % 1 H Smear Path Review Cancelled Puncture Site Arterial Line ABG pH 7.44 ABG pCO2 32 ABG pO2 140 H D ABG HCO3 22 ABG O2 Saturation 99 H ABG Base Excess -2 FiO2 35 Sodium 138 Potassium 4.4 Chloride 99 Carbon Dioxide 19.9 L Anion Gap 19 H BUN 13 Creatinine 1.3 D Estim Creat Clear Calc 40.5 L eGFR 44 L BUN/Creatinine Ratio 10 L Glucose 95 Calculated Osmolality 275 Calcium 8.5 Corrected Calcium 8.7 Phosphorus 2.1 L Magnesium 1.8 Total Bilirubin 1.0 AST 17 ALT 10 Alkaline Phosphatase 131 H Total Protein 5.2 L Albumin 3.7 D Globulin 1.5 L Albumin/Globulin Ratio 2.5 H Misc Test Result Platelets confirmed Blood Type Antibody Screen Antibody Identification Crossmatch Blood Bank Wristband ID Blood Bank Comment ABG Interpretation ABG results: 05/16/25 05/16/25 05/16/25 12:11 18:26 19:18 ABG pH 7.41 ABG pCO2 29 L ABG pO2 86 ABG HCO3 18 L ABG O2 Saturation 96 ABG Base Excess -6 L VBG pH 7.26 L 7.36 VBG pCO2 36 32 L VBG pO2 49 46 VBG Base Excess -10 L -7 L 05/17/25 05/17/25 05/17/25 01:51 01:58 12:35 ABG pH 7.34 L 7.21 L D ABG pCO2 30 L 30 L ABG pO2 92 181 H D ABG HCO3 16 L 12 L ABG O2 Saturation 97 99 H ABG Base Excess -9 L -15 L VBG pH 7.28 L VBG pCO2 37 VBG pO2 60 H VBG Base Excess -9 L 05/17/25 05/17/25 05/18/25 15:12 22:59 04:06 ABG pH 7.17 L* 7.26 L 7.23 L ABG pCO2 32 26 L 32 ABG pO2 343 H D 298 H D 208 H D ABG HCO3 12 L 12 L 13 L ABG O2 Saturation 100 H 100 H 100 H ABG Base Excess -16 L -14 L -13 L VBG pH VBG pCO2 VBG pO2 VBG Base Excess 05/18/25 05/19/25 05/20/25 12:10 07:13 17:49 ABG pH 7.49 H D ABG pCO2 35 ABG pO2 126 H D ABG HCO3 26 ABG O2 Saturation 99 H ABG Base Excess 3 VBG pH 7.23 L 7.57 VBG pCO2 35 L 35 L VBG pO2 173 H D 36 D VBG Base Excess -12 L 10 H 05/21/25 05/22/25 10:08 04:59 ABG pH 7.45 7.44 ABG pCO2 34 32 ABG pO2 70 L D 140 H D ABG HCO3 24 22 ABG O2 Saturation Not Performed. 99 H ABG Base Excess 0 -2 VBG pH VBG pCO2 VBG pO2 VBG Base Excess Quality Measures Quality Measures VTE prophylaxis Advance care planning discussed with:: patient Assessment & Plan Assessment Current Active Medications: Generic Name Dose Route Start Last Admin Trade Name Freq PRN Reason Stop Dose Admin Gabapentin 300 mg 05/21/25 21:00 05/21/25 20:00 Gabapentin 300 Mg Capsule PO 06/20/25 20:59 300 mg HS JESSICA Administration Heparin Sodium (Porcine) 1,300 unit 05/20/25 16:41 05/20/25 16:47 Heparin Sod Inj 1000 Unit/Ml Vial 10 Ml INDWELLCAT 06/03/25 16:40 1,300 unit PRN PRN Administration PER PROTOCOL Hydrocortisone Sodium Succinate 50 mg 05/19/25 12:00 05/22/25 05:11 Hydrocortisone Sod Succ Inj 100 Mg 2 Ml Vial IV 06/18/25 11:59 50 mg Q6HR JESSICA Administration Hydromorphone HCl 3 mg 05/21/25 11:44 05/22/25 10:04 Hydromorphone Inj 2 Mg/Ml Vial IVP 05/26/25 11:43 3 mg Q3HR PRN Administration Breakthrough Pain 7-10 Norepinephrine/Dextrose 8 mg in 250 mls @ 6.785 mls/hr 05/16/25 17:49 05/22/25 10:00 Levophed In D5w 8mg/250ml IV 06/15/25 17:48 0.05 mcg/kg/min .Q24H PRN 6.785 mls/hr PER PROTOCOL Titration Protocol 0.05 MCG/KG/MIN Vasopressin/Sodium Chloride 20 unit in 100 mls @ 9 mls/hr 05/17/25 00:58 05/22/25 07:00 Vasostrict/Ns Ivpb IV 06/16/25 00:57 0 unit/min .Q11H7M PRN 0 mls/hr PER PROTOCOL Titration Protocol 0.03 UNIT/MIN Propofol 1,000 mg in 100 mls @ 2.214 mls/hr 05/17/25 14:19 05/19/25 07:30 Diprivan Ivpb IV 06/16/25 14:18 0 mcg/kg/min .Q24H PRN 0 mls/hr PER PROTOCOL Titration Protocol 5 MCG/KG/MIN Albumin Human 25 gm in 100 mls @ 100 mls/hr 05/19/25 07:30 05/22/25 05:11 Albuminex 25% Ivpb IV 05/24/25 07:29 100 mls/hr Q8HR JESSICA Administration Piperacillin/Tazobactam/Dextrose 3.375 gm in 50 mls @ 12.5 mls/hr 05/19/25 14:00 05/22/25 05:12 Zosyn IV 05/26/25 13:59 12.5 mls/hr Q8HR JESSICA Administration Protocol Fentanyl Citrate 2,500 mcg in 250 mls @ 2.5 mls/hr 05/20/25 08:59 05/22/25 09:09 Sublimaze Inj 2,500 Mcg/250 Ml Bag IV 05/25/25 08:58 0 mcg/hr .Q24H PRN 0 mls/hr PER PROTOCOL Titration Protocol 25 MCG/HR Potassium Phosphate 15 mmol in 250 mls @ 62.5 mls/hr 05/22/25 08:03 05/22/25 09:23 Pot Phos 15 Mmol In Ns 250 Ml IV 05/22/25 12:02 62.5 mls/hr X1 ONE Administration Melatonin 3 mg 05/21/25 21:00 05/21/25 20:00 Melatonin 3 Mg Tablet PO 06/20/25 20:59 3 mg HS JESSICA Administration Ondansetron HCl 4 mg 05/16/25 18:34 05/17/25 09:51 Ondansetron Inj 2 Mg/Ml Inj 2 Ml IVP 06/15/25 18:33 4 mg Q6H PRN Administration NAUSEA OR VOMITING Protocol Pantoprazole Sodium 40 mg 05/17/25 09:00 05/22/25 09:24 Pantoprazole Inj 40 Mg Vial IVP 06/16/25 08:59 40 mg QDAY JESSICA Administration Pharmacy Consult 1 each 05/16/25 16:37 Pharmacy Renal Dose Adjustment 1 Ea XX 06/15/25 16:36 PRN PRN CONSULT Plan 70-year-old female with history of nephrolithiasis (s/p bilateral nephrostomy tubes Sep 2024), endometrial cancer in remission, T2DM, and chronic anemia presenting with severe abdominal pain, vomiting, fever, and chills, found to have acute sigmoid diverticulitis with localized perforation and sepsis requiring ICU admission. Neurology #Post-operative pain Treatment Plan: - Continue to decreased Fentanyl as tolerated, currently on 100 mcg/h. - Gabapentin 300 mg PO HS (can also help prevent ICU delirium). - Decreased Hydromorphone 3 mg to 2mg Q3HR PRN breakthrough pain. #Chemical sedation (titrated off) Treatment Plan: - Weaned off propofol. - Melatonin 3mg PO HS to help prevent ICU delirium. Cardiovascular #Septic shock, likely secondary to #Perforated sigmoid diverticulitis with feculent peritonitis DDx: septic shock (distributive) vs hypovolemia vs cardiogenic shock. Likely due to distributive shock from sepsis. Lactate > 2 despite adequate IV fluids (30 mL/kg). Poor clearance now due to renal failure. Check central saturation to correlate. No evidence of cardiogenic component at this time. Diagnostic Test: - Met 3/4 SIRS criteria on admission: T 101.1F, RR 31, WBC 16.3. - qSOFA score of 2 (RR 31 and SBP 84). - Confirmed or suspected infection: ruptured diverticulitis. - CT abd/pelvis: diverticulitis of large intestine with perforation. - End organ damage: WARREN due to sepsis: baseline Cr 0.8-1.3. Cr 2.3 on this admission. - Lactic acidosis due to sepsis: lactic acid level of 4.8 on admission. - Troponin < 0.002. - BP 84/58 on admission. - Echo 05/18: Normal LV size, wall thickness. Estimated LVEF at 60%. RV is normal in size and systolic function. Mild mitral regurgitation. Mild tricuspid regurgitation. - Urine culture- MDR Ecoli. - Blood culture - no growth. Treatment Review (completed) - Fluids: 30 mL/kg given in the ED. - S/p exploratory laparotomy, sigmoid colectomy with end descending colostomy and hysterectomy on 05/17. - Ciprofloxacin 400mg in 200mls IV Q12H (05/16-05/19) - Metronidazole 500mg in 100mls IV Q8H (05/16-05/19) Treatment Plan: - MDR Ecoli in urine, continue Zosyn. - Strict I&O. - Maintain on stress dose steroids for now. - Currently on Levophed 0.03 mcg/kg/min and fentanyl infusion at 100 mcg/hr. Wean as tolerated and transition off. Vasopressin was weaned off yesterday. Respiratory #Acute respiratory failure, post-op #Acute respiratory alkalosis Patient intubated during surgical procedure, remains intubated and sedated. Likely due to mechanical overventilation. Diagnostic Test: - ABG 05/20: pH 7.49, pCO2 35, pO2 126, HCO3 26. - ABG 05/21: pH 7.45, pCO2 34, pO2 70, HCO3 24. - ABG 05/22: pH 7.44, pCO2 32, pO2 140, HCO3 22. Treatment plan: - Ventilator AC VC, tidal volume 440, respiratory rate 20, PEEP 5, FiO2 35, Ppeak 24.6, Pplateau 15.8. - ABG showed respiratory alkalosis, decreased respiratory rate from 22 to 20. - Plan for extubation when patient is more alert and awake. #History of COPD Diagnostic Test: - No cardinal symptoms of COPD exacerbation such as increase sputum purulence or volume, or increase dyspnea. - VBG 05/16 12:11 showed pH 7.26, pCO2 36. - VBG 05/16 18:26 showed pH 7.36, pCO2 32. - ABG 05/16 19:18 showed pH 7.41, pCO2 29, pO2 82, HCO3 18. - CXR 05/16: Significant left base pneumonia. - CXR 05/17: Prominent left base pneumonia. Treatment Plan: - Monitor O2 saturation and respiratory effort. - No steroids or bronchodilators unless COPD exacerbation evident. GI, , F/E/N #Perforated sigmoid diverticulitis with feculent peritonitis S/p exploratory laparotomy, sigmoid colectomy with end descending colostomy and hysterectomy on 05/17. Diagnostic Test: - CT abd/pelvis: acute sigmoid diverticulitis with localized rupture of diverticula and mild pelvic pneumoperitoneum. - Surgery findings: inflamed and thickened sigmoid with large perforation and feculent peritonitis. Inflamed and necrotic appearing uterus. Very thin anterior abdominal fascia with evidence of multiple mesh placements from prior operations. - Pathology report 05/16: uterus - endometroid carcinoma with extensive necrosis with negative surgical margins. Sigmoid colon - extensive diverticulosis with perforation and inflammation. Treatment Plan: - Antibiotics as per above. - Ondansetron 4mg IV Q6H PRN for nausea. - Start trophic feeds (05/22) of Nepro at 10 ml/hr via OG tube by pump, with water flushes at 25 ml/hr. Once more stable, advance 10 ml every 8 hrs to goal rate of 30 ml/hr x 24 hrs. - Monitor colostomy bag for activity. #History of endometrial cancer #Recurrent endometrial cancer Diagnostic Test: - Pathology report 05/16: uterus - endometroid carcinoma with extensive necrosis with negative surgical margins. Treatment Plan: - Being followed with Rad/Onc in [place]. Renal #Primary anion gap metabolic acidosis DDx: lactic acidosis vs early renal failure Diagnostic Test: - Anion gap 19.1 - CMP bicarb 19.9. Treatment Plan: - Per nephrology recommendations, trial Bumex 2mg IV twice daily and albumin 25g IV twice daily to assess for diuretic responsiveness. Will re-evaluate tomorrow to see if dialysis is needed. #Acute kidney injury (resolved) #Anuria DDx: hypoperfusion vs sepsis vs obstrutive component from nephrostomy tubes vs anuria. Patient has not had any urine output to nephrostomy bag. Diagnostic Test: - Baseline Cr: 0.8-1.3. - Cr 2.3 on admission. - CT abd/pelvis: Bilateral nephrostomy ureteral catheter. Treatment Review (completed) - Started Tablo/LOAN REVIEWER on 05/19. - Continued LOAN REVIEWER with goal -1L/24 hours. Stopped at 4pm on 05/20. Treatment Plan: - Daily renal panel to trend Cr. - Avoid nephrotoxins. - Renally dose meds as appropriate. - Strict I&Os, monitor urine output closely. - Trial Bumex 2mg IV twice daily and albumin 25g IV twice daily to assess for diuretic responsiveness. Will re-evaluate tomorrow to see if dialysis is needed. #Hematuria Diagnostic Test: - UA: RBC 54. Treatment Plan: - Follow-up outpatient with urology to work-up hematuria. #Obstrutive nephrolithiasis s/p nephrostomy tube Treatment Plan: - Continue with nephrostomy tube. - Monitor urine output. Heme #Normocytic anemia DDx: anemia of chronic disease vs iron-deficiency anemia vs reactive. Diagnostic Test: - Hemoglobin 05/21: 6.8 --> 6.7. Treatment Review (completed). - 2 units of pRBCs were transfused after surgery on 05/17. - 1 unit of pRBC transfused on 05/21 for hemoglobin of 6.7. Post-transfusion hemoglobin 8.2. Treatment Plan: - Monitor H&H. - Transfusing for Hgb <7 or symptomatic. - Held heparin subcutaneous for DVT PPX, SCD. Confirm with general surgery before restarting heparin. - Peripheral blood smear pending. - Haptoglobin levels pending to evaluate for hemolysis. #Thrombocyopenia DDx: Consumptive Diagnostic Test: - Plt 602 on admission. - Plt 419 on 05/17, 106 on 05/18 - Plt 11 05/19 - Plt 8 05/20 - Plt 39 post platelet transfusion 05/20. - Suspect consumptive in setting of significant open abdominal surgery Treatment Plan: - Monitor platelets, transfuse to keep > 10k, >20k for invasive procedures #Leukocytosis (resolved) DDx: reactive vs URI vs pneumonia Diagnostic Test: . - WBC: 14.6 --> 16.3 --> 17.3--> 13.7 Treatment Plan - Continue to treat UTI/ intrabdominal infection with Zosyn Endo #Noninsulin dependent T2DM Diagnostic Test: - Hemoglobin A1c on 05/12/2025 was 5.2. - Blood glucose 154 on admission. - Glucose at goal <180. Treatment Plan: - Continue to check blood glucose levels. - Will start insulin if need better glycemic control. ID #E. Coli urinary tract infection Diagnostic Test: - Urinalysis: blood 2+, RBC 54, WBC 1069, bacteria 4+, positive leukocyte esterase. - Patient has history of positive UAs. - 10/31/24 urine culture: Klebsiella. Started Ciprofloxacin 400 mg. - Urine culture 05/16 showed E. Coli. Treatment Review (completed): - Ciprofloxacin (05/17-05/19). Treatment Plan: - Zosyn dosing per pharmacy for E.coli on urine culture (05/19-). Health Maintenance: DVT prophylaxis: SCDs, not appropriate for chemcial prophylaxis due to PLT <50k. GI prophylaxis: Pantoprazole 40 mg IV daily. Diet: NPO, plan to start trophic feeds. Tomlinson: none Lines: left IJ central line will be removed, right IJ dialysis cath, left femoral arterial line. Drips: Levophed, fentanyl. Vent: AC CODE STATUS: FULL CODE Patient plan of care was discussed with the senior resident, Dr. Anguiano, and attending physician, Dr. Coker. Becca Diop DO Internal Medicine PGY-1 Attending Provider Attestation/Addendum Patient seen and examined with the above resident, Becca Diop DO. I agree with the findings, assessment, and plan of care as documented except for any differences below. Patient continues to make dramatic improvement patient continues to make dramatic improvement from septic shock secondary to perforated viscus. She is now postoperative day 5 with nearly complete resolution of vasopressor requirements. As we start to wake the patient back up we will maintain pain control with just intermittent dosing of Dilaudid and discontinuation of fentanyl given his large volume of distribution. Patient remains on appropriate stress ulcer prophylaxis Protonix but will not do chemical prophylaxis at this point given her platelet count remains under 50k. Patient is being treated with Zosyn for E. coli in the urine with multidrug resistance as well as adequate coverage for intraperitoneal infection due to fecal seeding. Patient is on mechanical ventilation and remained stable with adequate gas exchange and pulmonary compliance. We will start trickle feeding today given minimal pressor requirements as we continue to wean off. Monitor stool output from ostomy. Patient with underlying recurrent endometrial cancer confirmed during surgery complicated by need for hysterectomy. Patient no longer requiring hemodialysis and we will continue to perform forced diuresis with Bumex and albumin. Catheter will remain in place with us removing all extraneous lines and tubing to minimize risk of new healthcare associated infection. Patient son is being updated by the senior residents over the telephone. Total critical care time: I personally spent 50 minutes for review of physiologic parameters, directing plan of care throughout the day, coordination of care with other subspecialist, and counseling patient at bedside. This is exclusive of time spent teaching of staff or performing separate billable procedures. The patient remains at significant risk for further morbidity and mortality warranting close monitoring and care only available in the ICU. Critical care services required for acute hypoxic respiratory failure, septic shock secondary to perforated viscus, acute encephalopathy, thrombocytopenia, complicated urinary tract infection, and acute renal failure.
[2025-05-22] MEDS: BUMETANIDE INJ 0.25 MG/ML VIAL 4 ML 2 MG IVP ×2 (12:17→20:44)
--- NOTE | 2025-05-22 16:07 | PC.SS ---
Update: Patient remains intubated. On pressor support. Patient in possession of colostomy bag. No dialysis today. Nephrology is consulting.
[2025-05-22] MEDS: HYDROmorphone INJ 2 MG/ML VIAL IVP ×2 (18:20→21:03)
[2025-05-22] MEDS: GABAPENTIN 300 MG CAPSULE PO (20:44)
[2025-05-22] MEDS: MELATONIN 3 MG TABLET PO (20:45)
[2025-05-23] VITALS (104 sets, daily range): BP systolic 66–132; BP diastolic 47–79; PULSE 52–889; RESP 16–24; TEMP 36.2–36.9; O2SAT 90–100
[2025-05-23] MEDS: ALBUMIN HUMAN-KJDA 25% IVPB 25 GM/100 ML BTL IV ×3 (05:07→21:26)
[2025-05-23] MEDS: PIPER/TAZO 3.375 GM PREMIX 3.375 GM/50 ML BAG IV ×2 (05:08→21:26)
[2025-05-23] MEDS: HYDROCORTISONE SOD SUCC INJ 100 MG 2 ML VIAL 50 MG IV ×3 (05:08→21:25)
[2025-05-23 05:37] LABS: Basophils # (Auto) 0.0 Thou/mm3 (0.0-0.2); Basophils % (Auto) 1 % (0-2.5); Eosinophils # (Auto) 0.0 Thou/mm3 (0.0-0.5); Eosinophils % (Auto) 0 % (0-10); Hematocrit 22.8 % (36.0-46.0); Immature Granulocytes Auto 0.16 Thou/mm3 (0.00-0.00); Lymphocytes # (Auto) 0.3 Thou/mm3 (1.0-4.8); Lymphocytes % (Auto) 5 % (10-50); Mean Corpuscular HGB Conc 33.3 g/dl (31.0-37.0); Mean Corpuscular Hemoglobin 28.0 pg (25.0-35.0); Mean Corpuscular Volume 84 fL (80-100); Monocytes # (Auto) 0.2 Thou/mm3 (0.0-0.8); Monocytes % (Auto) 3 % (0-12); Neutrophils # (Auto) 5.6 Thou/mm3 (1.8-7.7); Neutrophils % (Auto) 89 % (37-80); Nucleated Red Blood Cell # 0.02 Thou/mm3 (0.00-0.00); Nucleated Red Blood Cell % 0 /100 WBC (0); RDW Standard Deviation 53.5 fL (36.4-46.3); Red Blood Count 2.71 Miln/mm3 (4.00-5.20); White Blood Count 6.2 Thou/mm3 (3.6-11.0)
[2025-05-23 05:52] LABS: Hemoglobin 7.6 g/dL (12.0-16.0); Platelet Count 37 Thou/mm3 (140-440)
[2025-05-23 06:34] LABS: Alanine Aminotransferase 7 U/L (10-49); Albumin, Serum 3.4 gm/dL (3.4-4.8); Albumin/Globulin Ratio 2.6 (1.2-2.2); Alkaline Phosphatase 96 U/L (46-116); Anion Gap 18 (7-16); Aspartate Amino Transferase 17 U/L (0-34); BUN/Creatinine Ratio 12 Ratio (12-20); Bilirubin,Total 0.7 mg/dL (0.3-1.2); Blood Urea Nitrogen 20 mg/dL (9-23); Calcium 8.3 mg/dL (8.3-10.6); Calcium (Corrected) 8.8 mg/dL (8.5-10.1); Carbon Dioxide 21.9 mMol/L (20.0-31.0); Chloride 98 mMol/L (98-107); Creatinine (Component) 1.7 mg/dL (0.6-1.3); Estimated Creatinine Clearance 30.7 mL/min (>60); Globulin 1.3 gm/dL (2.3-3.5); Glucose 85 mg/dL (74-106); Magnesium 1.9 mg/dL (1.6-2.6); Osmolality,Calculated 277 (275-295); Phosphorous 2.3 mg/dL (2.4-5.1); Potassium 3.8 mMol/L (3.4-5.1); Sodium 138 mMol/L (136-145); Total Protein 4.7 gm/dL (5.7-8.2); eGFR 32 See Note
--- NOTE | 2025-05-23 08:36 | ESPR_ITS ---
Documentation for date of: 05/23/25 Subjective Subjective Interval history: Reason for consult: Oliguria/Anuria - WARREN in ICU patient post-septic shock and exploratory lap History of present illness: 70-year-old female with a history of nephrolithiasis (s/p bilateral nephrostomy tubes placed Sep 2024), endometrial cancer in remission, type 2 diabetes mellitus, chronic anemia, and COPD, admitted with perforated sigmoid diverticulitis and feculent peritonitis. She underwent exploratory laparotomy, sigmoid colectomy with end descending colostomy, and hysterectomy on 05/17. Nephrology was re-consulted today for no urine output. Overnight urine output was 50 cc total, despite adequate fluid resuscitation and pressor support (on norepinephrine and vasopressin). Patient remains in the ICU, intubated and sedated on propofol/fentanyl, receiving broad-spectrum antibiotics (ciprofloxacin + metronidazole). 05/18/2025: Patient seen in ICU during morning rounds. Intubated, sedated, on vasopressor support. No urine output noted from nephrostomy tubes or Bal. Nursing reports total 50 cc output overnight. No new fevers reported. BP 112/57 mmHg, HR 82. Labs: WBC 18.6, Hgb 10.4, Hct 31.6, Plt 106 (yesterday 419), Na 136, K 5.4, Cl 108, CO2 13.4, BUN 40, Cr 2.5 (GFR 20), Ca 8.8, Phos 6.0, Mg 2.1, Albumin 2.7, Alk Phos 176, Lactic acid 3.0->3.2. ABG: pH 7.30, pCO2 32, HCO3 13. 05/19/2025: Patient currently seen in ICU. On CRRT. On ventilator. Patient more alert and awake. No urine output from nephrostomy tubes or Bal. She had a sigmoid resection and colostomy with minimal stool. Labs, medications reviewed. Will continue with CRRT for next [address] Coker who is at bedside. 05/21/2025: Patient seen today in the ICU. She remains intubated, sedated, and critically ill. No significant urine output noted overnight; nephrostomy tubes remain with minimal drainage. Blood pressure stable on low-dose pressor support. No plans for [employer] today, will re-evaluate tomorrow based on hemodynamics, urine output, and lab trends. Labs: WBC 7.4, Hgb 6.8, Hct 20.6, Plt 39, Na 130, K 4.4, Cl 99, CO2 22.7, Cr 0.7 (GFR >60), Ca 8.9, Phos 2.7, Mg 1.7. ABG: pH 7.45, pCO2 34, HCO3 24. No acute respiratory distress noted; acidosis resolved. 05/22/2025: Patient seen today in the ICU. Still intubated and sedated, overall condition unchanged from yesterday. No urine output overnight; bilateral nephrostomy tubes with minimal drainage (~20 cc total). No dialysis planned for today. Will trial Bumex 2 mg IV twice daily with albumin 25 g IV twice daily to assess for diuretic responsiveness. Will re-evaluate tomorrow for potential dialysis depending on output and lab trends. BP 99/61, HR 65. Labs: WBC 7.0, Hgb 8.5, Hct 26, Plt 30, Na 138, K 4.4, Cl 99, CO2 20, BUN 13, Cr 1.3, Ca 8.7, Phos 2.1, Mg 1.8. 05/23/2025: Patient seen today in ICU. She remains intubated and sedated, currently being placed on pressure support trial to evaluate for possible extubation. She is off pressors. Tube feeds restarted yesterday and are being tolerated. No urine output overnight; nephrostomy tubes remain with minimal to no drainage. Renal function slightly worsened with Cr 1.7 (GFR 32). Considering dialysis today depending on overall fluid balance and metabolic trends. BP 103/68, HR 67. Labs: WBC 6.2, Hgb 7.6, Hct 22.8, Plt 37, Na 138, K 3.8, Cl 98, CO2 19, BUN 20, Cr 1.7 (GFR 32), Ca 8.8, Phos 2.3, Mg 1.9. Exam Vital Signs Temp Pulse Resp BP Pulse Ox O2 Del Method O2 Flow Rate 98.3 F 67 22 H 103/68 100 Mechanical Ventilation 100 05/23/25 04:00 05/23/25 06:15 05/21/25 13:43 05/23/25 06:15 05/23/25 06:15 05/23/25 06:00 05/20/25 17:34 FiO2 35 10/21/25 06:15 Narrative Exam General: Intubated, sedated, critically ill. CV: Regular rate and rhythm, no murmurs, no JVD. Resp: Ventilated breath sounds equal bilaterally, no wheezes or crackles. Abdomen: Soft, post-op dressing clean/dry/intact, colostomy with minimal output. : Bilateral nephrostomy tubes with minimal drainage. Extremities: Warm, trace edema. Neuro: Sedated, opens eyes intermittently. Objective Labs 05/23/25 04:50 05/23/25 04:50 Labs: Laboratory Results - last 24 hr 05/16/25 05/23/25 12:11 04:50 WBC 6.2 RBC 2.71 L Hgb 7.6 L Hct 22.8 L MCV 84 MCH 28.0 MCHC 33.3 RDW Std Deviation 53.5 H Plt Count 37 L D Neut % (Auto) 89 H Lymph % (Auto) 5 L [place] % (Auto) 3 Eos % (Auto) 0 Baso % (Auto) 1 Neut # (Auto) 5.6 Lymph # (Auto) 0.3 L [place] # (Auto) 0.2 Eos # (Auto) 0.0 Baso # (Auto) 0.0 Immature Gran # (Auto) 0.16 H Absolute Nucleated RBC 0.02 H Immature Gran % 3 H Nucleated RBC % 0 Sodium 138 Potassium 3.8 D Chloride 98 Carbon Dioxide 21.9 Anion Gap 18 H BUN 20 Creatinine 1.7 H Estim Creat Clear Calc 30.7 L eGFR 32 L BUN/Creatinine Ratio 12 Glucose 85 Calculated Osmolality 277 Calcium 8.3 Corrected Calcium 8.8 Phosphorus 2.3 L Magnesium 1.9 Total Bilirubin 0.7 AST 17 ALT 7 L Alkaline Phosphatase 96 D Total Protein 4.7 L Albumin 3.4 Globulin 1.3 L Albumin/Globulin Ratio 2.6 H Blood Type O Positive Antibody Screen POSITIVE Antibody Identification Anti-E Crossmatch See Detail Blood Bank Wristband ID Yes ABG Interpretation ABG results: 05/16/25 05/16/25 05/16/25 12:11 18:26 19:18 ABG pH 7.41 ABG pCO2 29 L ABG pO2 86 ABG HCO3 18 L ABG O2 Saturation 96 ABG Base Excess -6 L VBG pH 7.26 L 7.36 VBG pCO2 36 32 L VBG pO2 49 46 VBG Base Excess -10 L -7 L 05/17/25 05/17/25 05/17/25 01:51 01:58 12:35 ABG pH 7.34 L 7.21 L D ABG pCO2 30 L 30 L ABG pO2 92 181 H D ABG HCO3 16 L 12 L ABG O2 Saturation 97 99 H ABG Base Excess -9 L -15 L VBG pH 7.28 L VBG pCO2 37 VBG pO2 60 H VBG Base Excess -9 L 05/17/25 05/17/25 05/18/25 15:12 22:59 04:06 ABG pH 7.17 L* 7.26 L 7.23 L ABG pCO2 32 26 L 32 ABG pO2 343 H D 298 H D 208 H D ABG HCO3 12 L 12 L 13 L ABG O2 Saturation 100 H 100 H 100 H ABG Base Excess -16 L -14 L -13 L VBG pH VBG pCO2 VBG pO2 VBG Base Excess 05/18/25 05/19/25 05/20/25 12:10 07:13 17:49 ABG pH 7.49 H D ABG pCO2 35 ABG pO2 126 H D ABG HCO3 26 ABG O2 Saturation 99 H ABG Base Excess 3 VBG pH 7.23 L 7.57 VBG pCO2 35 L 35 L VBG pO2 173 H D 36 D VBG Base Excess -12 L 10 H 05/21/25 05/22/25 10:08 04:59 ABG pH 7.45 7.44 ABG pCO2 34 32 ABG pO2 70 L D 140 H D ABG HCO3 24 22 ABG O2 Saturation Not Performed. 99 H ABG Base Excess 0 -2 VBG pH VBG pCO2 VBG pO2 VBG Base Excess Quality Measures Quality Measures VTE prophylaxis Advance care planning discussed with:: patient Assessment & Plan Assessment Current Active Medications: Generic Name Dose Route Start Last Admin Trade Name Freq PRN Reason Stop Dose Admin Bumetanide 2 mg 05/22/25 11:15 05/22/25 20:44 Bumetanide Inj 0.25 Mg/Ml Vial 4 Ml IVP 06/21/25 11:14 2 mg BID JESSICA Administration Gabapentin 300 mg 05/21/25 21:00 05/22/25 20:44 Gabapentin 300 Mg Capsule PO 06/20/25 20:59 300 mg HS JESSICA Administration Heparin Sodium (Porcine) 1,300 unit 05/20/25 16:41 05/20/25 16:47 Heparin Sod Inj 1000 Unit/Ml Vial 10 Ml INDWELLCAT 06/03/25 16:40 1,300 unit PRN PRN Administration PER PROTOCOL Hydrocortisone Sodium Succinate 50 mg 05/19/25 12:00 05/23/25 05:08 Hydrocortisone Sod Succ Inj 100 Mg 2 Ml Vial IV 06/18/25 11:59 50 mg Q6HR JESSICA Administration Hydromorphone HCl 2 mg 05/22/25 11:17 05/22/25 21:03 Hydromorphone Inj 2 Mg/Ml Vial IVP 05/26/25 11:43 2 mg Q3HR PRN Administration Breakthrough Pain 7-10 Norepinephrine/Dextrose 8 mg in 250 mls @ 6.785 mls/hr 05/16/25 17:49 05/22/25 23:00 Levophed In D5w 8mg/250ml IV 06/15/25 17:48 0 mcg/kg/min .Q24H PRN 0 mls/hr PER PROTOCOL Titration Protocol 0.05 MCG/KG/MIN Vasopressin/Sodium Chloride 20 unit in 100 mls @ 9 mls/hr 05/17/25 00:58 05/22/25 19:00 Vasostrict/Ns Ivpb IV 06/16/25 00:57 Infused .Q11H7M PRN Titration PER PROTOCOL Protocol 0.03 UNIT/MIN Propofol 1,000 mg in 100 mls @ 2.214 mls/hr 05/17/25 14:19 05/19/25 07:30 Diprivan Ivpb IV 06/16/25 14:18 0 mcg/kg/min .Q24H PRN 0 mls/hr PER PROTOCOL Titration Protocol 5 MCG/KG/MIN Fentanyl Citrate 2,500 mcg in 250 mls @ 2.5 mls/hr 05/20/25 08:59 05/23/25 02:00 Sublimaze Inj 2,500 Mcg/250 Ml Bag IV 05/25/25 08:58 Infused .Q24H PRN Titration PER PROTOCOL Protocol 25 MCG/HR Albumin Human 25 gm in 100 mls @ 100 mls/hr 05/22/25 11:16 05/23/25 05:07 Albuminex 25% Ivpb IV 05/24/25 07:29 100 mls/hr Q8HR JESSICA Administration Piperacillin/Tazobactam/Dextrose 3.375 gm in 50 mls @ 12.5 mls/hr 05/22/25 22:30 05/23/25 05:08 Zosyn IV 05/26/25 17:59 12.5 mls/hr Q8HR JESSICA Administration Protocol Melatonin 3 mg 05/21/25 21:00 05/22/25 20:45 Melatonin 3 Mg Tablet PO 06/20/25 20:59 3 mg HS JESSICA Administration Ondansetron HCl 4 mg 05/16/25 18:34 05/17/25 09:51 Ondansetron Inj 2 Mg/Ml Inj 2 Ml IVP 06/15/25 18:33 4 mg Q6H PRN Administration NAUSEA OR VOMITING Protocol Pantoprazole Sodium 40 mg 05/17/25 09:00 05/22/25 09:24 Pantoprazole Inj 40 Mg Vial IVP 06/16/25 08:59 40 mg QDAY JESSICA Administration Pharmacy Consult 1 each 05/16/25 16:37 Pharmacy Renal Dose Adjustment 1 Ea XX 06/15/25 16:36 PRN PRN CONSULT Plan 70F with history of nephrolithiasis (s/p bilateral nephrostomy tubes), endometrial cancer in remission, T2DM, COPD, and recent colectomy/colostomy for perforated diverticulitis complicated by septic shock and WARREN. She remains oliguric/anuric post-CRRT, off pressors, and still intubated. Renal function showing mild rise in creatinine (1.7 from 1.3). Considering dialysis today if no urine output and rising azotemia continue. # Acute Kidney Injury Likely recovering ATN following septic shock and prior CRRT. Creatinine 1.7 with persistent anuria. Plan: * Consider dialysis today depending on fluid status and metabolic profile. * Continue Bumex 2 mg IV BID + albumin 25 g IV BID to promote diuresis. * Continue strict I&O documentation and daily renal panel. * Maintain MAP >65 mmHg for renal perfusion. * Avoid nephrotoxins, renally dose antibiotics. # Metabolic Acidosis Resolved; ABG normalized (HCO3 20). Plan: * Continue to monitor ABG and metabolic panel daily. * No bicarbonate or [employer] indicated today. # Hypophosphatemia # Hypomagnesemia Phos 2.3, Mg 1.9, K 3.8, stable but trending low. Plan: * Replete phosphorus as needed to keep >3. * Continue to monitor Mg and K daily. # Septic Shock Improved; remains on low-dose vasopressors. MDR E. coli UTI source; on Zosyn. Plan: * Continue antibiotics per ICU/ID guidance. * Monitor lactate and hemodynamics. Other problems: #Diverticulitis of large intestine with perforation (s/p exploratory laparotomy, sigmoid colectomy, colostomy, hysterectomy on 05/17) #Postoperative state (post-surgical, day 6) #Leukocytosis #Normocytic anemia #Thrombocytopenia #Lactic acidosis #Hyponatremia (resolved) #Presence of nephrostomy tubes bilaterally #Presence of colostomy #Type 2 diabetes mellitus (controlled, A1C 5.2) #COPD #Endometrial cancer, in remission #Mechanical ventilation dependence Management per ICU team ----- Plan discussed with attending physician Dr. Garcia Jackson MD PGY-1 Internal Medicine Attending Provider Attestation/Addendum Patient seen and examined with resident physician Dr. Jackson. Note reviewed, agree with findings and recommendations. Urine output still remains low. no urine output despite giving Bumex with albumin patient extubated. Patient on dialysis. Tolerating dialysis without any problems. Hemodialysis for 3 hours, 4K, ultrafiltration 2 L, Epogen 6000, no heparin ordered. Plan of care discussed with the dialysis nurse. Please see dialysis flowsheet for further details. Spoke to ICU team.
[2025-05-23] MEDS: HYDROmorphone INJ 2 MG/ML VIAL IVP (09:52)
--- NOTE | 2025-05-23 10:09 | PD.SURPROG ---
Documentation for date of: 05/23/25 Subjective Subjective Narrative: Patient is seen and examined. She was started on trickle tube feeding that she is tolerating. She was extubated earlier today Exam Vital Signs Temp Pulse Resp BP Pulse Ox O2 Del Method O2 Flow Rate 98.3 F 88 22 H 111/70 100 Mechanical Ventilation 100 05/23/25 04:00 05/23/25 08:45 05/21/25 13:43 05/23/25 08:45 05/23/25 08:45 05/23/25 06:00 05/20/25 17:34 FiO2 35 05/23/25 08:00 Constitutional Constitutional: no acute distress Routine Abdominal Exam Comments: Abdomen is soft and nondistended. Incision is clean, dry and intact. Colostomy is pink, present, patent and productive Assessment & Plan Assessment Additional comments: Postop day #6 status post exploratory laparotomy with sigmoid colectomy, end colostomy and hysterectomy Plan May start her on liquid diet if maintaining airway PROCEDURES: Procedures Exploratory laparotomy, sigmoid colectomy with end descending colostomy Hysterectomy
--- NOTE | 2025-05-23 10:33 | ESPR_ITS ---
<Statement entered by Tim Anguiano MD - 05/23/25 16:35> Patient seen and examined at bedside. I discussed and supervised with the international bank manager physician who took care of this patient. I personally saw and examined the patient. I agree with most of the assessment and plan. No events overnight. Patient continues to put out minimal amounts of urine. Kidney function worsened with uptrending BUN, creatinine. Plan for conventional hemodialysis today as patient is no longer requiring pressor support. Patient placed on pressure support ventilation, well-tolerated. Patient was successfully extubated to oxy mask, weaned down to nasal cannula. Patient shows good mentation, ANO x 3, follows commands but shows significant weakness. Decreased hydrocortisone to 50 mg twice daily, continue to taper off. Will have speech therapy assess patient tomorrow, start clear liquid diet if cleared. Patient has required only occasional use of Dilaudid as needed. Will extend course of antibiotics for 10 days total. Plan of care discussed with attending Dr. Coker. Tim Anguiano MD PGY-2 Documentation for date of: 05/23/25 Subjective Subjective Interval history: 05/23/2025: Overnight, patient was weaned off Levophed at approximately 11 PM and MAP has remained stable in the 70s. Yesterday, the patient?s Dilaudid dose was reduced from 3 mg to 2 mg every 3 hours as needed, and the patient has received two doses since the reduction. The dose will continue to be tapered down to 1 mg every 3 hours as needed. Urine output has increased compared to yesterday, totaling approximately 45 cc over the past 12 hours. Patient also had 350 cc in the ostomy bag and 200 cc this morning. Trophic feeds were initiated yesterday, and blood glucose levels have remained stable in the 90s. Conventional hemodialysis is planned for today, with trophic feeds being paused for at least one hour prior to dialysis. Patient?s stress steroid dose will be reduced from hydrocortisone 50 mg every 6 hours (totaling 200 mg) to 50 mg twice daily (totaling 100 mg), with a tapering schedule over 2-3 days, followed by reevaluation based on the patient?s clinical status. Plan to remove the A-line following dialysis today. Extended course of Zosyn for E. coli UTI until 05/28 (10 days total), will reassessment at that time. Patient successfully passed the spontaneous breathing trial and was extubated and transitioned to high-flow nasal cannula. Surgery has cleared the patient to start a liquid diet if can protect own airway. Speech therapy will assess the patient tomorrow and perform swallow screen. 05/22/2025: Overnight patient had good output in colostomy bag, about 425 mL. Urine output was decreased from yesterday, totaling about 15 cc over the past 12 hours. Patient was weaned off vasopressin yesterday. Currently patient remains on Levophed 0.03 mcg/kg/min and fentanyl infusion at 100 mcg/hr, will continue to gradually taper. Per nursing staff, the current pain management is effective with good pain control reported. Trophic enteral feeds will start today. Plan to remove the left IJ central line and maintain the right IJ central line for dialysis access. Per nephrology recommendations, trial Bumex 2mg IV twice daily and albumin 25g IV twice daily to assess for diuretic responsiveness. Will re- evaluate tomorrow to see if dialysis is needed. ABG this morning showed a respiratory alkalosis. The respiratory rate on the ventilator was decreased from 22 to 20 breaths per minute. 05/21/2025: Overnight, the patient's hemoglobin dropped to 6.8, with a repeat value of 6.7. One unit of packed red blood cells was transfused, resulting in a post-transfusion hemoglobin of 8.2. Blood smear is planned to further evaluate anemia. Platelet count was 8 on 05/20, and following transfusion, improved to 39. Phosphorus level was 0.9, and after potassium phosphate repletion, increased to 2.7. Urine output was approximately 38 cc over the past 12 hours. Per nursing staff, patient had a formed bowel movement in the ostomy. Patient remains on pressors with norepinephrine at 0.03 mcg/kg/min and vasopressin at 0.03 units/min. Plan is to continue gradual weaning as tolerated. Fentanyl infusion was at 300 mcg/hr earlier today and has been tapered to 150 mcg/hr. To support pain control during the fentanyl taper, gabapentin 300 mg PO at bedtime and hydromorphone 3 mg Q3H PRN have been added to the regimen. 05/20/2025: Patient is seen and examined in ICU. Intubated and sedated. She was started on dialysis. Now has thrombocytopenia 05/19/2025: No fever overnight. Minimal outpt form ostomy, mostly red/ serous. Chucks remain dry, no UOP. No tomlinson in place. Nephrostomy tubes flushed with minimal output. Patient remains on levophed at 0.3 mcg/kg/min and vasopressin. Patient spontaneously opening eys with sedation slowly tapered overnight, bradycardia to 52- remained SB. About to complete first round of Tablo, plan for one hour break pending input form nephrology. Alkalotic on AM labs. 05/18/2025: Patient Levophed uptitrated overnight. Patient continues to have no urinary output with worsening renal function and acidosis on labs, right IJ Vas- Cath placed and Tablo dialysis initiated. Patient also developed significant thrombocytopenia, suspect consumptive following large surgery. Last goals updated 2-2. Over course of dialysis, Levophed was able to be down titrated, remains greater than 0.2. Echocardiogram ordered due to ongoing elevated pressor requirements. 05/17/2025: Overnight, NICOM was used to assess fluid responsiveness, and it indicated that the patient is 39% fluid responsive. The patient was on levophed at 0.19 mcg/kg/min and received 12.5 grams of albumin in 50 mL, along with 1L of LR, to address her low blood pressure. For abdominal pain management, the patient was given 0.5 mg of Dilaudid x2, IV Tylenol, a lidocaine patch, and a scopolamine patch. Additionally, the patient received 4 mg of Zofran for nausea. According to nursing staff, the patient had a diaper with a moderate amount of urine but no urine output in the nephrostomy bag. The patient refused a Tomlinson catheter and a purewick was placed instead. A bladder scan showed no urine production. The patient has not been producing urine. Nephrology recommended increasing fluid intake and flushing the nephrostomy tubes. Vasopressin was eventually added for her low blood pressures. A right femoral arterial line was placed before patient went to surgery. Patient underwent an exploratory laparotomy, sigmoid colectomy with end descending colostomy and hysterectomy. Findings from the operation: Inflamed and thickened sigmoid with large perforation and feculent peritonitis. Inflamed and necrotic appearing uterus. Very thin anterior abdominal fascia with evidence of multiple mesh placements from prior operations. History of Present Illness: 70-year-old female with a medical history significant for nephrolithiasis (status post bilateral nephrostomy tubes in September 2024), endometrial cancer (in remission, s/p chemo and radiation), non-insulin dependent type 2 diabetes mellitus, anemia, and COPD presents with severe 10/10 abdominal pain and non- bloody vomiting that began one day ago. Patient reports that the abdominal pain is present even with slight movements. The abdominal pain is worse on the right lower quadrant. Patient endorses associated symptoms of fever, chills, and headache. A limited history was obtained from the patient due to significant pain, as she reports that even speaking exacerbates her discomfort. General surgery was consulted. Patient was admitted to the ICU for septic shock. ED Course: -Initial vitals were: BP 84/58, HR 72, RR 31, T 101.1F, O2 sat 100% on oxy mask. -Labs significant for: WBC 16.3, RBC 3.84, Hgb 10.2, Hct 33.7, MCHC 30.3, Plt 602, bicarbonate 15.8, anion gap 17, BUN 33, Cr 2.3, eGFR 22, glucose 154, lactic acid 4.8, ALT < 7, ALP 457, albumin 3.2, procalcitonin 25.58. VBG pH 7.26, pCO2 36, pO2 49, O2 sat 79%. Urinalysis WBC 1069, positive leukocyte esterase. -Imaging included: CT abd/pelvis: bilateral nephrostomy ureteral catheter with no significant hydronephrosis, acute sigmoid diverticulitis with localized rupture of diverticula and mild pelvic pneumoperitoneum. -In the ED, patient was given: LR 2.5L, pantoprazole 40 mg IV x1, Ciprofloxacin 400mg in 200 mls IV x1, hydromorphone 1 mg IV x1, Metronidazole 500 mg IV x1, acetaminophen 1000 mg IV x1, ondansetron 4mg IV x1. Past Medical History: as above Past Surgical History: bilateral nephrostomy tubes in September 2024, appendenctomy and cholecystectomy. Family History: extensive family history of cardiac disease and lung problems. Social History: - Smoking: denies - Alcohol: denies - Illicit drugs: denies - Residence: lives in [place] in a SNF. Current Medications: pending med recs. Allergies: cephalexin - diarrhea, sulfa antibiotics - rash, coconut oil - rash. Exam Vital Signs Temp Pulse Resp BP Pulse Ox O2 Del Method O2 Flow Rate 98.3 F 82 24 H 97/57 L 96 Mechanical Ventilation 6 05/23/25 04:00 05/23/25 10:15 05/23/25 09:37 05/23/25 10:15 05/23/25 10:15 05/23/25 06:00 05/23/25 09:37 FiO2 28 05/23/25 09:37 Narrative Exam Physical Exam General: Obese body habitus. Follows commands. Head: Normocephalic, atraumatic. Right central line site is clean, dry and intact. Eyes: Pupils equally round and reactive to light. Anicteric. Mouth/Throat: Moist mucous membranes. HFNC. Heart: Regular rate and rhythm, no murmurs. No JVD. Lungs: Improved bilateral rhonchi heard on auscultation. Non-labored respirations, symmetric chest rise, no use of accessory muscles. Abdomen: Soft and tender to touch, no rebound. Midline incision under bandage with daina, bruising at site. Ostomy LLQ. : No tomlinson, nephrostomy drains with minimal output. Neurologic: Alert and oriented x3, no gross neurological deficit, and patient able to move all 4 extremities. Extremities: Mild edema of hands. 2+ edema of feet. Posterior tibial pulses are 2+ bilaterally. 2+ radial pulse bilaterally. No clubbing or cyanosis. No mottling. Left groin with hematoma at A-line site. Skin: No rash. Objective Labs 05/30/25 17:30 05/30/25 04:35 Labs: Laboratory Results - last 24 hr 05/23/25 04:50 WBC 6.2 RBC 2.71 L Hgb 7.6 L Hct 22.8 L MCV 84 MCH 28.0 MCHC 33.3 RDW Std Deviation 53.5 H Plt Count 37 L D Neut % (Auto) 89 H Lymph % (Auto) 5 L [place] % (Auto) 3 Eos % (Auto) 0 Baso % (Auto) 1 Neut # (Auto) 5.6 Lymph # (Auto) 0.3 L [place] # (Auto) 0.2 Eos # (Auto) 0.0 Baso # (Auto) 0.0 Immature Gran # (Auto) 0.16 H Absolute Nucleated RBC 0.02 H Immature Gran % 3 H Nucleated RBC % 0 Sodium 138 Potassium 3.8 D Chloride 98 Carbon Dioxide 21.9 Anion Gap 18 H BUN 20 Creatinine 1.7 H Estim Creat Clear Calc 30.7 L eGFR 32 L BUN/Creatinine Ratio 12 Glucose 85 Calculated Osmolality 277 Calcium 8.3 Corrected Calcium 8.8 Phosphorus 2.3 L Magnesium 1.9 Total Bilirubin 0.7 AST 17 ALT 7 L Alkaline Phosphatase 96 D Total Protein 4.7 L Albumin 3.4 Globulin 1.3 L Albumin/Globulin Ratio 2.6 H ABG Interpretation ABG results: 05/16/25 05/16/25 05/16/25 12:11 18:26 19:18 ABG pH 7.41 ABG pCO2 29 L ABG pO2 86 ABG HCO3 18 L ABG O2 Saturation 96 ABG Base Excess -6 L VBG pH 7.26 L 7.36 VBG pCO2 36 32 L VBG pO2 49 46 VBG Base Excess -10 L -7 L 05/17/25 05/17/25 05/17/25 01:51 01:58 12:35 ABG pH 7.34 L 7.21 L D ABG pCO2 30 L 30 L ABG pO2 92 181 H D ABG HCO3 16 L 12 L ABG O2 Saturation 97 99 H ABG Base Excess -9 L -15 L VBG pH 7.28 L VBG pCO2 37 VBG pO2 60 H VBG Base Excess -9 L 05/17/25 05/17/25 05/18/25 15:12 22:59 04:06 ABG pH 7.17 L* 7.26 L 7.23 L ABG pCO2 32 26 L 32 ABG pO2 343 H D 298 H D 208 H D ABG HCO3 12 L 12 L 13 L ABG O2 Saturation 100 H 100 H 100 H ABG Base Excess -16 L -14 L -13 L VBG pH VBG pCO2 VBG pO2 VBG Base Excess 05/18/25 05/19/2525 12:10 07:13 17:49 ABG pH 7.49 H D ABG pCO2 35 ABG pO2 126 H D ABG HCO3 26 ABG O2 Saturation 99 H ABG Base Excess 3 VBG pH 7.23 L 7.57 VBG pCO2 35 L 35 L VBG pO2 173 H D 36 D VBG Base Excess -12 L 10 H 05/21/25 05/22/25 10:08 04:59 ABG pH 7.45 7.44 ABG pCO2 34 32 ABG pO2 70 L D 140 H D ABG HCO3 24 22 ABG O2 Saturation Not Performed. 99 H ABG Base Excess 0 -2 VBG pH VBG pCO2 VBG pO2 VBG Base Excess Quality Measures Quality Measures VTE prophylaxis Advance care planning discussed with:: patient Assessment & Plan Assessment Current Active Medications: Generic Name Dose Route Start Last Admin Trade Name Freq PRN Reason Stop Dose Admin Bumetanide 2 mg 05/22/25 11:15 05/23/25 09:53 Bumetanide Inj 0.25 Mg/Ml Vial 4 Ml IVP 06/21/25 11:14 Not Given BID JESSICA Gabapentin 300 mg 05/21/25 21:00 05/22/25 20:44 Gabapentin 300 Mg Capsule PO 06/20/25 20:59 300 mg HS JESSICA Administration Heparin Sodium (Porcine) 1,300 unit 05/20/25 16:41 05/20/25 16:47 Heparin Sod Inj 1000 Unit/Ml Vial 10 Ml INDWELLCAT 06/03/25 16:40 1,300 unit PRN PRN Administration PER PROTOCOL Hydrocortisone Sodium Succinate 50 mg 05/23/25 09:00 05/23/25 09:51 Hydrocortisone Sod Succ Inj 100 Mg 2 Ml Vial IV 06/22/25 08:59 50 mg BID JESSICA Administration Hydromorphone HCl 1 mg 05/23/25 10:12 Hydromorphone Inj 2 Mg/Ml Vial IVP 05/26/25 11:43 Q3HR PRN Breakthrough Pain 7-10 Norepinephrine/Dextrose 8 mg in 250 mls @ 6.785 mls/hr 05/16/25 17:49 05/22/25 23:00 Levophed In D5w 8mg/250ml IV 06/15/25 17:48 0 mcg/kg/min .Q24H PRN 0 mls/hr PER PROTOCOL Titration Protocol 0.05 MCG/KG/MIN Vasopressin/Sodium Chloride 20 unit in 100 mls @ 9 mls/hr 05/17/25 00:58 05/22/25 19:00 Vasostrict/Ns Ivpb IV 06/16/25 00:57 Infused .Q11H7M PRN Titration PER PROTOCOL Protocol 0.03 UNIT/MIN Propofol 1,000 mg in 100 mls @ 2.214 mls/hr 05/17/25 14:19 05/19/25 07:30 Diprivan Ivpb IV 06/16/25 14:18 0 mcg/kg/min .Q24H PRN 0 mls/hr PER PROTOCOL Titration Protocol 5 MCG/KG/MIN Fentanyl Citrate 2,500 mcg in 250 mls @ 2.5 mls/hr 05/20/25 08:59 05/23/25 02:00 Sublimaze Inj 2,500 Mcg/250 Ml Bag IV 05/25/25 08:58 Infused .Q24H PRN Titration PER PROTOCOL Protocol 25 MCG/HR Albumin Human 25 gm in 100 mls @ 100 mls/hr 05/22/25 11:16 05/23/25 05:07 Albuminex 25% Ivpb IV 05/24/25 07:29 100 mls/hr Q8HR JESSICA Administration Piperacillin/Tazobactam/Dextrose 3.375 gm in 50 mls @ 12.5 mls/hr 05/22/25 22:30 05/23/25 05:08 Zosyn IV 05/28/25 17:59 12.5 mls/hr Q8HR JESSICA Administration Protocol Melatonin 3 mg 05/21/25 21:00 05/22/25 20:45 Melatonin 3 Mg Tablet PO 06/20/25 20:59 3 mg HS JESSICA Administration Ondansetron HCl 4 mg 05/16/25 18:34 05/17/25 09:51 Ondansetron Inj 2 Mg/Ml Inj 2 Ml IVP 06/15/25 18:33 4 mg Q6H PRN Administration NAUSEA OR VOMITING Protocol Pantoprazole Sodium 40 mg 05/17/25 09:00 05/23/25 09:52 Pantoprazole Inj 40 Mg Vial IVP 06/16/25 08:59 40 mg QDAY JESSICA Administration Pharmacy Consult 1 each 05/16/25 16:37 Pharmacy Renal Dose Adjustment 1 Ea XX 06/15/25 16:36 PRN PRN CONSULT Plan 70-year-old female with history of nephrolithiasis (s/p bilateral nephrostomy tubes Sep 2024), endometrial cancer in remission, T2DM, and chronic anemia presenting with severe abdominal pain, vomiting, fever, and chills, found to have acute sigmoid diverticulitis with localized perforation and sepsis requiring ICU admission. Neurology #Post-operative pain Treatment Review (completed): - Weaned off fentanyl. Treatment Plan: - Gabapentin 300 mg PO HS (can also help prevent ICU delirium). - Decreased Hydromorphone 2 mg to 1 mg Q3HR PRN breakthrough pain. #Chemical sedation (titrated off) Treatment Plan: - Weaned off propofol and fentanyl. - Melatonin 3mg PO HS to help prevent ICU delirium. Cardiovascular #Septic shock, likely secondary to (resolved) #Perforated sigmoid diverticulitis with feculent peritonitis DDx: septic shock (distributive) vs hypovolemia vs cardiogenic shock. Likely due to distributive shock from sepsis. Lactate > 2 despite adequate IV fluids (30 mL/kg). Poor clearance now due to renal failure. Check central saturation to correlate. No evidence of cardiogenic component at this time. Diagnostic Test: - Met 3/4 SIRS criteria on admission: T 101.1F, RR 31, WBC 16.3. - qSOFA score of 2 (RR 31 and SBP 84). - Confirmed or suspected infection: ruptured diverticulitis. - CT abd/pelvis: diverticulitis of large intestine with perforation. - End organ damage: WARREN due to sepsis: baseline Cr 0.8-1.3. Cr 2.3 on this admission. - Lactic acidosis due to sepsis: lactic acid level of 4.8 on admission. - Troponin < 0.002. - BP 84/58 on admission. - Echo 05/18: Normal LV size, wall thickness. Estimated LVEF at 60%. RV is normal in size and systolic function. Mild mitral regurgitation. Mild tricuspid regurgitation. - Urine culture- MDR Ecoli. - Blood culture - no growth. Treatment Review (completed) - Fluids: 30 mL/kg given in the ED. - S/p exploratory laparotomy, sigmoid colectomy with end descending colostomy and hysterectomy on 05/17. - Ciprofloxacin 400mg in 200mls IV Q12H (05/16-05/19) - Metronidazole 500mg in 100mls IV Q8H (05/16-05/19) Treatment Plan: - Patient was successfully weaned off Levophed around 11pm on 05/22. Will closely monitor MAP and aim to maintain above 65 during extubation and dialysis today. Reduced intrathoracic pressure after extubation can cause increase urine output. - Taper stress steroid dose from hydrocortisone 50 mg every 6 hours (totaling 200 mg) to 50 mg twice daily (totaling 100 mg), with reassessment in 2-3 days based on the clinical response. - Continue to treat MDR E.coli UTI with Zosyn (05/19-05/28). Respiratory #Acute respiratory failure, post-op (resolved) Patient intubated during surgical procedure. Likely due to mechanical overventilation. Diagnostic Test: - ABG 05/20: pH 7.49, pCO2 35, pO2 126, HCO3 26. - ABG 05/21: pH 7.45, pCO2 34, pO2 70, HCO3 24. - ABG 05/22: pH 7.44, pCO2 32, pO2 140, HCO3 22. Treatment plan: - Patient passed spontaneous breathing trial this morning. - Extubated on 05/23. - Transitioned to HFNC. - Will continue to monitor respiratory status through oxygen saturation, HR, and assessing ability to clear secretions and protecting airway. - Will continue to monitor neurological status. - Plan for swallow evaluation by speech therapist tomorrow (05/24). #History of COPD Diagnostic Test: - No cardinal symptoms of COPD exacerbation such as increase sputum purulence or volume, or increase dyspnea. - VBG 05/16 12:11 showed pH 7.26, pCO2 36. - VBG 05/16 18:26 showed pH 7.36, pCO2 32. - ABG 05/16 19:18 showed pH 7.41, pCO2 29, pO2 82, HCO3 18. - CXR 05/16: Significant left base pneumonia. - CXR 05/17: Prominent left base pneumonia. Treatment Plan: - Monitor O2 saturation and respiratory effort. - No steroids or bronchodilators unless COPD exacerbation evident. GI, , F/E/N #Perforated sigmoid diverticulitis with feculent peritonitis (post-op day 6) S/p exploratory laparotomy, sigmoid colectomy with end descending colostomy and hysterectomy on 05/17. Diagnostic Test: - CT abd/pelvis: acute sigmoid diverticulitis with localized rupture of diverticula and mild pelvic pneumoperitoneum. - Surgery findings: inflamed and thickened sigmoid with large perforation and feculent peritonitis. Inflamed and necrotic appearing uterus. Very thin anterior abdominal fascia with evidence of multiple mesh placements from prior operations. - Pathology report 05/16: uterus - endometroid carcinoma with extensive necrosis with negative surgical margins. Sigmoid colon - extensive diverticulosis with perforation and inflammation. Treatment Plan: - Antibiotic as per above. - Ondansetron 4mg IV Q6H PRN for nausea. - Trophic feeds (started 05/22) of Nepro at 10 ml/hr via OG tube by pump, with water flushes at 25 ml/hr. Once more stable, advance 10 ml every 8 hrs to goal rate of 30 ml/hr x 24 hrs. - Monitor colostomy bag for activity. - Surgery has cleared the patient to start a liquid diet if can protect own airway. Speech therapy will assess the patient tomorrow and perform swallow screen. #History of endometrial cancer #Recurrent endometrial cancer Diagnostic Test: - Pathology report 05/16: uterus - endometroid carcinoma with extensive necrosis with negative surgical margins. Treatment Plan: - Being followed with Rad/Onc in [place]. Renal #Primary anion gap metabolic acidosis DDx: lactic acidosis vs early renal failure Diagnostic Test: - Anion gap 19.1 - CMP bicarb 19.9. Treatment Review: - 05/22 albumin challenge with 2 mg IV Bumex twice daily, urine output of 45 cc. Treatment Plan: - Plan for dialysis today. - Pause trophic feeds at least an hour before dialysis. #Acute kidney injury #Anuria DDx: hypoperfusion vs sepsis vs obstrutive component from nephrostomy tubes vs recovering ATN following septic shock. Diagnostic Test: - Baseline Cr: 0.8-1.3. - Cr 2.3 on admission. - CT abd/pelvis: Bilateral nephrostomy ureteral catheter. Treatment Review (completed) - Tablo/[employer] on 05/19, Continued [employer] with goal -1L/24 hours. Stopped at 4pm on 05/20. - 05/22: albumin challenge with 2 mg IV Bumex twice daily, urine output of 45. Treatment Plan: - Plan for hemodialysis today with fluid removal. - Daily renal panel to trend Cr. - Avoid nephrotoxins. - Renally dose meds as appropriate. - Strict I&Os, monitor urine output closely. - Maintain MAP >65 mmHg for renal perfusion. #Hematuria Diagnostic Test: - UA: RBC 54. Treatment Plan: - Follow-up outpatient with urology to work-up hematuria. #Obstrutive nephrolithiasis s/p nephrostomy tube Treatment Plan: - Continue with nephrostomy tube. - Monitor urine output. Heme #Normocytic anemia DDx: anemia of chronic disease vs iron-deficiency anemia vs reactive. Diagnostic Test: - Hemoglobin 05/21: 6.8 --> 6.7. Treatment Review (completed). - 2 units of pRBCs were transfused after surgery on 05/17. - 1 unit of pRBC transfused on 05/21 for hemoglobin of 6.7. Post-transfusion hemoglobin 8.2. Treatment Plan: - Monitor H&H. - Transfusing for Hgb <7 or symptomatic. - Held heparin subcutaneous for DVT PPX, SCD. Confirm with general surgery before restarting heparin. - Peripheral blood smear pending. - Haptoglobin levels pending to evaluate for hemolysis. #Thrombocyopenia DDx: Consumptive Diagnostic Test: - Plt 602 on admission. - Plt 419 on 05/17, 106 on 05/18 - Plt 11 05/19 - Plt 8 05/20 - Plt 39 post platelet transfusion 05/20. - Suspect consumptive in setting of significant open abdominal surgery Treatment Plan: - Monitor platelets, transfuse to keep > 10k, >20k for invasive procedures #Leukocytosis (resolved) DDx: reactive vs URI vs pneumonia Diagnostic Test: . - WBC: 14.6 --> 16.3 --> 17.3--> 13.7 Treatment Plan - Continue to treat UTI/ intrabdominal infection with Zosyn (05/19-05/28). Endo #Noninsulin dependent T2DM Diagnostic Test: - Hemoglobin A1c on 05/12/2025 was 5.2. - Blood glucose 154 on admission. - Glucose at goal <180. Treatment Plan: - Continue to check blood glucose levels given trophic feeds have been started. - Will start insulin if need better glycemic control. ID #E. Coli urinary tract infection Diagnostic Test: - Urinalysis: blood 2+, RBC 54, WBC 1069, bacteria 4+, positive leukocyte esterase. - Patient has history of positive UAs. - 10/31/24 urine culture: Klebsiella. Started Ciprofloxacin 400 mg. - Urine culture 05/16 showed E. Coli. Treatment Review (completed): - Ciprofloxacin (05/17-05/19). Treatment Plan: - Zosyn dosing per pharmacy for E.coli on urine culture (05/19-05/28). Health Maintenance: DVT prophylaxis: SCDs, not appropriate for chemcial prophylaxis due to PLT <50k. GI prophylaxis: Pantoprazole 40 mg IV daily. Diet: trophic feeds, liquid diet once pass swallow screen. Tomlinson: none Lines:right IJ dialysis cath, left femoral arterial line. Drips: none Vent: extubated 05/23 CODE STATUS: FULL CODE Patient plan of care was discussed with the senior resident, Dr. Anguiano, and attending physician, Dr. Coker. Becca Diop DO Internal Medicine PGY-1 Attending Provider Attestation/Addendum Patient seen and examined with above resident, Becca Diop DO. I agree with the findings, assessment, and plan of care as document except for any differences below. Patient continues to show improvement with resolution of need for vasopressor support. To optimize patient's volume and metabolic status, will perform hemodialysis after discussion with renal service. Patient continues to be on minimal ventilatory support with ability to tolerate spontaneous breathing trial this afternoon and successful extubation. Will aim to wean down to nasal cannula gradually. Patient shows continued improvement in her encephalopathy with return back to her baseline prior to surgery. She continues to be sleepy and lethargic but this is to be expected due to the prolonged need for sedation in the previous days despite us having stopped fentanyl for over 24 hours to ensure adequate clearance. Patient was placed on Precedex for comfort and tolerated this well with plan to wean off gradually now. Patient was tolerating tube feeds and having some stool output from ostomy. Patient will have formal evaluation by speech therapy tomorrow and determine if she is ready for a clear liquid diet unless otherwise recommended by general surgery. Given the severity of her illness and multiorgan dysfunction, will plan for completed course of antibiotics after 10 days with adequate coverage for both new pulmonary as well as intra-abdominal infections including the urinary tract given her presence of nephrostomy tubes. Patient's family has not been at bedside resident staff has been updated by telephone. Total critical care time: I personally spent 40 minutes for review of physiologic parameters, directing plan of care throughout the day, coordination of care with other staff/specialists, and counseling patient at bedside. This is exclusive of time spent teaching of staff performing any separate billable procedures. Patient remains at significant risk for further morbidity and mortality warranting close primary care only available in the ICU. Critical care services required for septic shock, perforated viscus with peritonitis, complicated urinary tract infection, acute renal failure, and acute hypoxic respiratory failure.
[2025-05-23 10:47] LABS: Hepatitis A Antibody IgM Non Reactive (Non React); Hepatitis B Core Antibody IgM Non Reactive (Non React); Hepatitis B Surface Ab NonReact(Not Immune) (Immune); Hepatitis B Surface Antigen Non Reactive (Non React); Hepatitis C Antibody Non Reactive (Non React)
[2025-05-23 11:04] LABS: Slide Review Platelets confirmed
--- NOTE | 2025-05-23 13:20 | PC.SS ---
Update: Patient extubated today. Patient currently on 7L oxy mask. NPO. Swallow evaluation is pending. Patient receiving IV antibiotics. Plan is for dialysis today.
[2025-05-23] MEDS: EPOETIN ALFA-EPBX INJ 10,000 UNIT/ML VIAL (NON-ESRD) 10000 UNIT SC (19:00)
[2025-05-23] MEDS: HEPARIN SOD INJ 1000 UNIT/ML VIAL 10 ML 2600 UNIT INDWELLCAT (19:23)
[2025-05-23] MEDS: BUMETANIDE INJ 0.25 MG/ML VIAL 4 ML 2 MG IVP (21:24)
[2025-05-24] VITALS (28 sets, daily range): BP systolic 81–139; BP diastolic 47–95; PULSE 79–105; RESP 12–25; TEMP 36.6–36.8; O2SAT 89–100
[2025-05-24] MEDS: Magnesium Sulfate 2 GM Ivpb 2 GM/50 ML BAG IV (02:00)
[2025-05-24] MEDS: ALBUTEROL/IPRATROPIUM (Duoneb) RT SOL 3 ML NEBU INH (02:02)
[2025-05-24 06:01] LABS: Basophils # (Auto) 0.1 Thou/mm3 (0.0-0.2); Basophils % (Auto) 1 % (0-2.5); Eosinophils # (Auto) 0.0 Thou/mm3 (0.0-0.5); Eosinophils % (Auto) 0 % (0-10); Hematocrit 24.7 % (36.0-46.0); Immature Granulocytes Auto 0.18 Thou/mm3 (0.00-0.00); Lymphocytes # (Auto) 0.4 Thou/mm3 (1.0-4.8); Lymphocytes % (Auto) 4 % (10-50); Mean Corpuscular HGB Conc 32.0 g/dl (31.0-37.0); Mean Corpuscular Hemoglobin 28.3 pg (25.0-35.0); Mean Corpuscular Volume 89 fL (80-100); Monocytes # (Auto) 0.3 Thou/mm3 (0.0-0.8); Monocytes % (Auto) 3 % (0-12); Neutrophils # (Auto) 7.9 Thou/mm3 (1.8-7.7); Neutrophils % (Auto) 89 % (37-80); Nucleated Red Blood Cell # 0.03 Thou/mm3 (0.00-0.00); Nucleated Red Blood Cell % 0 /100 WBC (0); RDW Standard Deviation 58.4 fL (36.4-46.3); Red Blood Count 2.79 Miln/mm3 (4.00-5.20); White Blood Count 8.9 Thou/mm3 (3.6-11.0)
[2025-05-24 06:03] LABS: Hemoglobin 7.9 g/dL (12.0-16.0); Platelet Count 60 Thou/mm3 (140-440)
[2025-05-24] MEDS: ALBUMIN HUMAN-KJDA 25% IVPB 25 GM/100 ML BTL IV (06:10)
[2025-05-24] MEDS: PIPER/TAZO 3.375 GM PREMIX 3.375 GM/50 ML BAG IV ×3 (06:10→21:05)
[2025-05-24 06:32] LABS: Alanine Aminotransferase 8 U/L (10-49); Albumin, Serum 4.0 gm/dL (3.4-4.8); Albumin/Globulin Ratio 3.6 (1.2-2.2); Alkaline Phosphatase 96 U/L (46-116); Anion Gap 16 (7-16); Aspartate Amino Transferase 21 U/L (0-34); BUN/Creatinine Ratio 10 Ratio (12-20); Bilirubin,Total 0.7 mg/dL (0.3-1.2); Blood Urea Nitrogen 14 mg/dL (9-23); Calcium 8.4 mg/dL (8.3-10.6); Calcium (Corrected) 8.4 mg/dL (8.5-10.1); Carbon Dioxide 25.9 mMol/L (20.0-31.0); Chloride 99 mMol/L (98-107); Creatinine (Component) 1.4 mg/dL (0.6-1.3); Estimated Creatinine Clearance 50.8 mL/min (>60); Globulin 1.1 gm/dL (2.3-3.5); Glucose 81 mg/dL (74-106); Magnesium 2.3 mg/dL (1.6-2.6); Osmolality,Calculated 280 (275-295); Phosphorous 1.7 mg/dL (2.4-5.1); Potassium 3.8 mMol/L (3.4-5.1); Sodium 141 mMol/L (136-145); Total Protein 5.1 gm/dL (5.7-8.2); eGFR 40 See Note
--- NOTE | 2025-05-24 08:38 | ESPR_ITS ---
Documentation for date of: 05/24/25 Subjective Subjective Interval history: Reason for consult: Oliguria/Anuria - WARREN in ICU patient post-septic shock and exploratory lap History of present illness: 70-year-old female with a history of nephrolithiasis (s/p bilateral nephrostomy tubes placed Sep 2024), endometrial cancer in remission, type 2 diabetes mellitus, chronic anemia, and COPD, admitted with perforated sigmoid diverticulitis and feculent peritonitis. She underwent exploratory laparotomy, sigmoid colectomy with end descending colostomy, and hysterectomy on 05/17. Nephrology was re-consulted today for no urine output. Overnight urine output was 50 cc total, despite adequate fluid resuscitation and pressor support (on norepinephrine and vasopressin). Patient remains in the ICU, intubated and sedated on propofol/fentanyl, receiving broad-spectrum antibiotics (ciprofloxacin + metronidazole). 05/18/2025: Patient seen in ICU during morning rounds. Intubated, sedated, on vasopressor support. No urine output noted from nephrostomy tubes or Tomlinson. Nursing reports total 50 cc output overnight. No new fevers reported. BP 112/57 mmHg, HR 82. Labs: WBC 18.6, Hgb 10.4, Hct 31.6, Plt 106 (yesterday 419), Na 136, K 5.4, Cl 108, CO2 13.4, BUN 40, Cr 2.5 (GFR 20), Ca 8.8, Phos 6.0, Mg 2.1, Albumin 2.7, Alk Phos 176, Lactic acid 3.0->3.2. ABG: pH 7.30, pCO2 32, HCO3 13. 05/19/2025: Patient currently seen in ICU. On CRRT. On ventilator. Patient more alert and awake. No urine output from nephrostomy tubes or Tomlinson. She had a sigmoid resection and colostomy with minimal stool. Labs, medications reviewed. Will continue with CRRT for next [address] Coker who is at bedside. 05/21/2025: Patient seen today in the ICU. She remains intubated, sedated, and critically ill. No significant urine output noted overnight; nephrostomy tubes remain with minimal drainage. Blood pressure stable on low-dose pressor support. No plans for FAMILY SERVICE ASSISTANT today, will re-evaluate tomorrow based on hemodynamics, urine output, and lab trends. Labs: WBC 7.4, Hgb 6.8, Hct 20.6, Plt 39, Na 130, K 4.4, Cl 99, CO2 22.7, Cr 0.7 (GFR >60), Ca 8.9, Phos 2.7, Mg 1.7. ABG: pH 7.45, pCO2 34, HCO3 24. No acute respiratory distress noted; acidosis resolved. 05/22/2025: Patient seen today in the ICU. Still intubated and sedated, overall condition unchanged from yesterday. No urine output overnight; bilateral nephrostomy tubes with minimal drainage (~20 cc total). No dialysis planned for today. Will trial Bumex 2 mg IV twice daily with albumin 25 g IV twice daily to assess for diuretic responsiveness. Will re-evaluate tomorrow for potential dialysis depending on output and lab trends. BP 99/61, HR 65. Labs: WBC 7.0, Hgb 8.5, Hct 26, Plt 30, Na 138, K 4.4, Cl 99, CO2 20, BUN 13, Cr 1.3, Ca 8.7, Phos 2.1, Mg 1.8. 05/23/2025: Patient seen today in ICU. She remains intubated and sedated, currently being placed on pressure support trial to evaluate for possible extubation. She is off pressors. Tube feeds restarted yesterday and are being tolerated. No urine output overnight; nephrostomy tubes remain with minimal to no drainage. Renal function slightly worsened with Cr 1.7 (GFR 32). Considering dialysis today depending on overall fluid balance and metabolic trends. BP 103/68, HR 67. Labs: WBC 6.2, Hgb 7.6, Hct 22.8, Plt 37, Na 138, K 3.8, Cl 98, CO2 19, BUN 20, Cr 1.7 (GFR 32), Ca 8.8, Phos 2.3, Mg 1.9. 05/24/2025: Patient extubated today and more awake; follows commands well. Still no urine output overnight. Bilateral nephrostomy tubes flushed. Bumex will be discontinued today as it?s no longer helping, and dialysis will continue tomorrow. The patient tolerated dialysis well yesterday. BP 190/55, HR 89. Labs: WBC 8.9, Hgb 7.9, Hct 24.7, Plt 60, Na 141, K 3.8, Cl 99, CO2 25.9, BUN 14, Cr 1.4 (GFR 40), Ca 8.4, Phos 1.7, Mg 2.3. Exam Vital Signs Temp Pulse Resp BP Pulse Ox O2 Del Method O2 Flow Rate 97.9 F 89 12 90/55 L 100 High Flow Nasal Cannula 25 05/24/25 08:00 05/24/25 08:00 05/24/25 08:00 05/24/25 08:00 05/24/25 08:00 05/24/25 08:00 05/24/25 06:42 FiO2 40 05/24/25 06:42 Narrative Exam General: Obese body habitus. Follows commands. Head: Normocephalic, atraumatic. Right central line site is clean, dry and intact. Eyes: Pupils equally round and reactive to light. Anicteric. Mouth/Throat: Moist mucous membranes. Heart: Regular rate and rhythm, no murmurs. No JVD. Lungs: Improved bilateral rhonchi heard on auscultation. Non-labored respirations, symmetric chest rise, no use of accessory muscles. Abdomen: Soft and tender to touch, no rebound. Midline incision under bandage with daina, bruising at site. Ostomy LLQ. : No tomlinson, nephrostomy drains with minimal output. Neurologic: Alert and oriented x3, no gross neurological deficit, and patient able to move all 4 extremities. Extremities: Mild edema of hands. 2+ edema of feet. Posterior tibial pulses are 2+ bilaterally. 2+ radial pulse bilaterally. No clubbing or cyanosis. No mottling. Left groin with hematoma at A-line site. Skin: No rash. Objective Labs 05/25/25 04:45 05/25/25 04:45 Labs: Laboratory Results - last 24 hr 05/23/25 05/24/25 04:50 05:17 WBC 8.9 D RBC 2.79 L Hgb 7.9 L Hct 24.7 L MCV 89 MCH 28.3 MCHC 32.0 RDW Std Deviation 58.4 H Plt Count 60 L D Neut % (Auto) 89 H Lymph % (Auto) 4 L [place] % (Auto) 3 Eos % (Auto) 0 Baso % (Auto) 1 Neut # (Auto) 7.9 H Lymph # (Auto) 0.4 L [place] # (Auto) 0.3 Eos # (Auto) 0.0 Baso # (Auto) 0.1 Immature Gran # (Auto) 0.18 H Absolute Nucleated RBC 0.03 H Immature Gran % 2 H Nucleated RBC % 0 Sodium 141 Potassium 3.8 Chloride 99 Carbon Dioxide 25.9 Anion Gap 16 BUN 14 Creatinine 1.4 H Estim Creat Clear Calc 50.8 L eGFR 40 L BUN/Creatinine Ratio 10 L Glucose 81 Calculated Osmolality 280 Calcium 8.4 Corrected Calcium 8.4 L Phosphorus 1.7 L Magnesium 2.3 Total Bilirubin 0.7 AST 21 ALT 8 L Alkaline Phosphatase 96 Total Protein 5.1 L Albumin 4.0 D Globulin 1.1 L Albumin/Globulin Ratio 3.6 H Hepatitis A IgM Ab Non Reactive Hep Bs Antigen Non Reactive Hep Bs Antibody NonReact(Not Immune) L Hep B Core IgM Ab Non Reactive Hepatitis C Antibody Non Reactive Misc Test Result Platelets confirmed ABG Interpretation ABG results: 05/16/25 05/16/25 05/16/25 12:11 18:26 19:18 ABG pH 7.41 ABG pCO2 29 L ABG pO2 86 ABG HCO3 18 L ABG O2 Saturation 96 ABG Base Excess -6 L VBG pH 7.26 L 7.36 VBG pCO2 36 32 L VBG pO2 49 46 VBG Base Excess -10 L -7 L 05/17/25 05/17/25 05/17/25 01:51 01:58 12:35 ABG pH 7.34 L 7.21 L D ABG pCO2 30 L 30 L ABG pO2 92 181 H D ABG HCO3 16 L 12 L ABG O2 Saturation 97 99 H ABG Base Excess -9 L -15 L VBG pH 7.28 L VBG pCO2 37 VBG pO2 60 H VBG Base Excess -9 L 05/17/25 05/17/25 05/18/25 15:12 22:59 04:06 ABG pH 7.17 L* 7.26 L 7.23 L ABG pCO2 32 26 L 32 ABG pO2 343 H D 298 H D 208 H D ABG HCO3 12 L 12 L 13 L ABG O2 Saturation 100 H 100 H 100 H ABG Base Excess -16 L -14 L -13 L VBG pH VBG pCO2 VBG pO2 VBG Base Excess 10/16/25 10/17/25 10/18/25 12:10 07:13 17:49 ABG pH 7.49 H D ABG pCO2 35 ABG pO2 126 H D ABG HCO3 26 ABG O2 Saturation 99 H ABG Base Excess 3 VBG pH 7.23 L 7.57 VBG pCO2 35 L 35 L VBG pO2 173 H D 36 D VBG Base Excess -12 L 10 H 05/21/25 05/22/25 10:08 04:59 ABG pH 7.45 7.44 ABG pCO2 34 32 ABG pO2 70 L D 140 H D ABG HCO3 24 22 ABG O2 Saturation Not Performed. 99 H ABG Base Excess 0 -2 VBG pH VBG pCO2 VBG pO2 VBG Base Excess Quality Measures Quality Measures VTE prophylaxis Advance care planning discussed with:: patient Assessment & Plan Assessment Current Active Medications: Generic Name Dose Route Start Last Admin Trade Name Freq PRN Reason Stop Dose Admin Bumetanide 2 mg 05/22/25 11:15 05/23/25 21:24 Bumetanide Inj 0.25 Mg/Ml Vial 4 Ml IVP 06/21/25 11:14 2 mg BID JESSICA Administration Gabapentin 300 mg 05/21/25 21:00 05/23/25 21:26 Gabapentin 300 Mg Capsule PO 06/20/25 20:59 Not Given HS JESSICA Heparin Sodium (Porcine) 2,600 unit 05/23/25 19:07 05/23/25 19:23 Heparin Sod Inj 1000 Unit/Ml Vial 10 Ml INDWELLCAT 06/06/25 19:06 2,600 unit PRN PRN Administration DIALYSIS Hydrocortisone Sodium Succinate 50 mg 05/23/25 09:00 05/23/25 21:25 Hydrocortisone Sod Succ Inj 100 Mg 2 Ml Vial IV 06/22/25 08:59 50 mg BID JESSICA Administration Hydromorphone HCl 1 mg 05/23/25 10:12 Hydromorphone Inj 2 Mg/Ml Vial IVP 05/26/25 11:43 Q3HR PRN Breakthrough Pain 7-10 Norepinephrine/Dextrose 8 mg in 250 mls @ 6.785 mls/hr 05/16/25 17:49 05/22/25 23:00 Levophed In D5w 8mg/250ml IV 06/15/25 17:48 0 mcg/kg/min .Q24H PRN 0 mls/hr PER PROTOCOL Titration Protocol 0.05 MCG/KG/MIN Vasopressin/Sodium Chloride 20 unit in 100 mls @ 9 mls/hr 05/17/25 00:58 05/22/25 19:00 Vasostrict/Ns Ivpb IV 06/16/25 00:57 Infused .Q11H7M PRN Titration PER PROTOCOL Protocol 0.03 UNIT/MIN Propofol 1,000 mg in 100 mls @ 2.214 mls/hr 05/17/25 14:19 05/19/25 07:30 Diprivan Ivpb IV 06/16/25 14:18 0 mcg/kg/min .Q24H PRN 0 mls/hr PER PROTOCOL Titration Protocol 5 MCG/KG/MIN Fentanyl Citrate 2,500 mcg in 250 mls @ 2.5 mls/hr 05/20/25 08:59 05/23/25 02:00 Sublimaze Inj 2,500 Mcg/250 Ml Bag IV 05/25/25 08:58 Infused .Q24H PRN Titration PER PROTOCOL Protocol 25 MCG/HR Piperacillin/Tazobactam/Dextrose 3.375 gm in 50 mls @ 12.5 mls/hr 05/22/25 22:30 05/24/25 06:10 Zosyn IV 05/28/25 17:59 12.5 mls/hr Q8HR JESSICA Administration Protocol Albumin Human 25 gm in 100 mls @ 100 mls/min 05/23/25 16:03 Albuminex 25% Ivpb IV PRN PRN DIALYSIS Potassium Phosphate 15 mmol in 250 mls @ 62.5 mls/hr 05/24/25 08:23 Pot Phos 15 Mmol In Ns 250 Ml IV 05/24/25 16:22 Q4H JESSICA Melatonin 3 mg 05/21/25 21:00 05/23/25 21:27 Melatonin 3 Mg Tablet PO 06/20/25 20:59 Not Given HS JESSICA Ondansetron HCl 4 mg 05/16/25 18:34 05/17/25 09:51 Ondansetron Inj 2 Mg/Ml Inj 2 Ml IVP 06/15/25 18:33 4 mg Q6H PRN Administration NAUSEA OR VOMITING Protocol Pantoprazole Sodium 40 mg 05/17/25 09:00 05/23/25 09:52 Pantoprazole Inj 40 Mg Vial IVP 06/16/25 08:59 40 mg QDAY JESSICA Administration Pharmacy Consult 1 each 05/16/25 16:37 Pharmacy Renal Dose Adjustment 1 Ea XX 06/15/25 16:36 PRN PRN CONSULT Plan 70F with history of nephrolithiasis (s/p bilateral nephrostomy tubes), endometrial cancer in remission, T2DM, COPD, and recent colectomy/colostomy for perforated diverticulitis complicated by septic shock and WARREN. Patient extubated today, following commands, and progressing well. No urine output still; dialysis continued. # Acute Kidney Injury Likely recovering ATN following septic shock and prior CRRT. Anuric, with slightly improved creatinine (1.4, GFR 40). Plan: * Continue dialysis tomorrow. * Discontinue Bumex today, no longer effective. * Strict I&O and daily renal panel. * Avoid nephrotoxins, renally dose antibiotics. * Monitor electrolytes, fluid balance, and volume status closely. # Hypophosphatemia # Hypomagnesemia Phos 1.7, Mg 2.3, K 3.8, stable but low-normal. Plan: * Continue monitoring electrolytes, replete as needed. * Ensure phosphate and magnesium stay in range with repletion. # Metabolic Acidosis Resolved; ABG normalized (HCO3 25.9). Plan: * Continue to monitor ABG and metabolic panel daily. * No bicarbonate or FAMILY SERVICE ASSISTANT indicated today. # Septic Shock Improved; remains on low-dose vasopressors. MDR E. coli UTI source; on Zosyn. Plan: * Continue antibiotics per ICU/ID guidance. * Monitor lactate and hemodynamics. Other problems: #Diverticulitis of large intestine with perforation (s/p exploratory laparotomy, sigmoid colectomy, colostomy, hysterectomy on 05/17) #Postoperative state (post-surgical, day 7) #Leukocytosis #Normocytic anemia #Thrombocytopenia #Lactic acidosis #Hyponatremia (resolved) #Presence of nephrostomy tubes bilaterally #Presence of colostomy #Type 2 diabetes mellitus (controlled, A1C 5.2) #COPD #Endometrial cancer, in remission #Mechanical ventilation dependence Management per ICU team ----- Plan discussed with attending physician Dr. Garcia Jackson MD PGY-1 Internal Medicine Attending Provider Attestation/Addendum Patient seen and examined with resident physician Dr. Jackson. Note reviewed, agree with findings and recommendations. Patient extubated. Did receive dialysis yesterday. Minimal urinary output. If no improvement in azotemia-Will plan for dialysis tomorrow.
[2025-05-24] MEDS: HYDROmorphone INJ 2 MG/ML VIAL 1 MG IVP ×3 (08:46→18:46)
[2025-05-24] MEDS: HYDROCORTISONE SOD SUCC INJ 100 MG 2 ML VIAL 50 MG IV ×2 (08:55→20:15)
[2025-05-24] MEDS: POT PHOS 15 mMol in NS 250 ML 15 MMOL/250 ML BAG 62.5 MMOL IV ×2 (08:57→13:11)
[2025-05-24] MEDS: CALCIUM CARBONATE 600 MG TABLET PO (09:12)
[2025-05-24] MEDS: HEPARIN SOD INJ 5000 UNIT/ML VIAL SC ×2 (09:12→20:15)
--- NOTE | 2025-05-24 12:10 | ESPR_ITS ---
<Statement entered by Martir Manning MD - 05/24/25 15:16> Patient was seen and examined in the ICU. Overnight, patient was short of breath and due to concern for hypoxia patient was placed on high flow nasal cannula. This morning, patient did show improvement in terms of her breathing and was taken off from high flow with improvement in her saturations down to nasal cannula. Nephrostomy tubes were flushed although patient still has not made any urine. Patient's arterial line was removed. She remained afebrile. Colostomy bag showed output of 350 cc. Dialysis was performed yesterday without any complications with removal of 1 L. Plan was to hold off on dialysis today and likely consider tomorrow per nephro rec's. Bumex was held considering soft blood pressure. Recommended to ambulate patient twice daily. Added abdominal pelvic binder. She passed swallow test and started on liquid diet. Heparin subcutaneous was restarted given improvement in platelets and surgeon recommended that stoma appears slightly edematous but is otherwise looking stable. Electrolytes were repleted. Patient was downgraded to floors for continuation of care. I discussed and supervised with the software developer intern physician who took care of this patient. I personally saw and examined the patient. I agree with most of the assessment and plan. Disclaimer: Despite multiple revisions, due to the dictation software being used, the document bellow may not be free of grammatical errors including phonetic/typographic errors. However, this does not deter from our commitment to providing health care in the patient's best interest in mind. Plan of care discussed with attending Physician Dr.Ahmad Martir Manning MD PGY-3 Documentation for date of: 05/24/25 Subjective Subjective Interval history: 05/24/2025: Overnight, patient was initially on the oxymask but was switched to high-flow nasal cannula due to difficulty clearing secretions, congestion, and desaturation. Patient was too weak to effectively cough out the secretions. One chest physiotherapy treatment was performed, and suctioning of the secretions provided relief. Patient's arterial line was removed. Colostomy bag output of 350cc. Patient remained afebrile throughout the night. Patient received dialysis yesterday, with 1L removed, but did not produce any urine overnight. Today, the nephrostomy tubes were flushed with normal saline for any potential obstructions. Dialysis is planned for tomorrow. Bumex was withheld due to blood pressure being on the lower side. Patient was switched back to a 2L nasal cannula and is now saturating at 99%. Will try to ambulate the patient today. Abdominal pelvic binder ordered. Patient passed swallow test and has been started on a liquid diet. A photo of the patient's stoma was sent to the surgeon for evaluation. Dr Fuentes states that the stoma appears slightly edematous but is otherwise fine. 05/23/2025: Overnight, patient was weaned off Levophed at approximately 11 PM and MAP has remained stable in the 70s. Yesterday, the patient?s Dilaudid dose was reduced from 3 mg to 2 mg every 3 hours as needed, and the patient has received two doses since the reduction. The dose will continue to be tapered down to 1 mg every 3 hours as needed. Urine output has increased compared to yesterday, totaling approximately 45 cc over the past 12 hours. Patient also had 350 cc in the ostomy bag and 200 cc this morning. Trophic feeds were initiated yesterday, and blood glucose levels have remained stable in the 90s. Conventional hemodialysis is planned for today, with trophic feeds being paused for at least one hour prior to dialysis. Patient?s stress steroid dose will be reduced from hydrocortisone 50 mg every 6 hours (totaling 200 mg) to 50 mg twice daily (totaling 100 mg), with a tapering schedule over 2-3 days, followed by reevaluation based on the patient?s clinical status. Plan to remove the A-line following dialysis today. Extended course of Zosyn for E. coli UTI until 05/28 (10 days total), will reassessment at that time. Patient successfully passed the spontaneous breathing trial and was extubated and transitioned to high-flow nasal cannula. Surgery has cleared the patient to start a liquid diet if can protect own airway. Speech therapy will assess the patient tomorrow and perform swallow screen. 05/22/2025: Overnight patient had good output in colostomy bag, about 425 mL. Urine output was decreased from yesterday, totaling about 15 cc over the past 12 hours. Patient was weaned off vasopressin yesterday. Currently patient remains on Levophed 0.03 mcg/kg/min and fentanyl infusion at 100 mcg/hr, will continue to gradually taper. Per nursing staff, the current pain management is effective with good pain control reported. Trophic enteral feeds will start today. Plan to remove the left IJ central line and maintain the right IJ central line for dialysis access. Per nephrology recommendations, trial Bumex 2mg IV twice daily and albumin 25g IV twice daily to assess for diuretic responsiveness. Will re- evaluate tomorrow to see if dialysis is needed. ABG this morning showed a respiratory alkalosis. The respiratory rate on the ventilator was decreased from 22 to 20 breaths per minute. 05/21/2025: Overnight, the patient's hemoglobin dropped to 6.8, with a repeat value of 6.7. One unit of packed red blood cells was transfused, resulting in a post-transfusion hemoglobin of 8.2. Blood smear is planned to further evaluate anemia. Platelet count was 8 on 05/20, and following transfusion, improved to 39. Phosphorus level was 0.9, and after potassium phosphate repletion, increased to 2.7. Urine output was approximately 38 cc over the past 12 hours. Per nursing staff, patient had a formed bowel movement in the ostomy. Patient remains on pressors with norepinephrine at 0.03 mcg/kg/min and vasopressin at 0.03 units/min. Plan is to continue gradual weaning as tolerated. Fentanyl infusion was at 300 mcg/hr earlier today and has been tapered to 150 mcg/hr. To support pain control during the fentanyl taper, gabapentin 300 mg PO at bedtime and hydromorphone 3 mg Q3H PRN have been added to the regimen. 05/20/2025: Patient is seen and examined in ICU. Intubated and sedated. She was started on dialysis. Now has thrombocytopenia 05/19/2025: No fever overnight. Minimal outpt form ostomy, mostly red/ serous. Chucks remain dry, no UOP. No tomlinson in place. Nephrostomy tubes flushed with minimal output. Patient remains on levophed at 0.3 mcg/kg/min and vasopressin. Patient spontaneously opening eys with sedation slowly tapered overnight, bradycardia to 52- remained SB. About to complete first round of Tablo, plan for one hour break pending input form nephrology. Alkalotic on AM labs. 05/18/2025: Patient Levophed uptitrated overnight. Patient continues to have no urinary output with worsening renal function and acidosis on labs, right IJ Vas- Cath placed and Tablo dialysis initiated. Patient also developed significant thrombocytopenia, suspect consumptive following large surgery. Last goals updated 2-2. Over course of dialysis, Levophed was able to be down titrated, remains greater than 0.2. Echocardiogram ordered due to ongoing elevated pressor requirements. 05/17/2025: Overnight, NICOM was used to assess fluid responsiveness, and it indicated that the patient is 39% fluid responsive. The patient was on levophed at 0.19 mcg/kg/min and received 12.5 grams of albumin in 50 mL, along with 1L of LR, to address her low blood pressure. For abdominal pain management, the patient was given 0.5 mg of Dilaudid x2, IV Tylenol, a lidocaine patch, and a scopolamine patch. Additionally, the patient received 4 mg of Zofran for nausea. According to nursing staff, the patient had a diaper with a moderate amount of urine but no urine output in the nephrostomy bag. The patient refused a Tomlinson catheter and a purewick was placed instead. A bladder scan showed no urine production. The patient has not been producing urine. Nephrology recommended increasing fluid intake and flushing the nephrostomy tubes. Vasopressin was eventually added for her low blood pressures. A right femoral arterial line was placed before patient went to surgery. Patient underwent an exploratory laparotomy, sigmoid colectomy with end descending colostomy and hysterectomy. Findings from the operation: Inflamed and thickened sigmoid with large perforation and feculent peritonitis. Inflamed and necrotic appearing uterus. Very thin anterior abdominal fascia with evidence of multiple mesh placements from prior operations. History of Present Illness: 70-year-old female with a medical history significant for nephrolithiasis (status post bilateral nephrostomy tubes in September 2024), endometrial cancer (in remission, s/p chemo and radiation), non-insulin dependent type 2 diabetes mellitus, anemia, and COPD presents with severe 10/10 abdominal pain and non- bloody vomiting that began one day ago. Patient reports that the abdominal pain is present even with slight movements. The abdominal pain is worse on the right lower quadrant. Patient endorses associated symptoms of fever, chills, and headache. A limited history was obtained from the patient due to significant pain, as she reports that even speaking exacerbates her discomfort. General surgery was consulted. Patient was admitted to the ICU for septic shock. ED Course: -Initial vitals were: BP 84/58, HR 72, RR 31, T 101.1F, O2 sat 100% on oxy mask. -Labs significant for: WBC 16.3, RBC 3.84, Hgb 10.2, Hct 33.7, MCHC 30.3, Plt 602, bicarbonate 15.8, anion gap 17, BUN 33, Cr 2.3, eGFR 22, glucose 154, lactic acid 4.8, ALT < 7, ALP 457, albumin 3.2, procalcitonin 25.58. VBG pH 7.26, pCO2 36, pO2 49, O2 sat 79%. Urinalysis WBC 1069, positive leukocyte esterase. -Imaging included: CT abd/pelvis: bilateral nephrostomy ureteral catheter with no significant hydronephrosis, acute sigmoid diverticulitis with localized rupture of diverticula and mild pelvic pneumoperitoneum. -In the ED, patient was given: LR 2.5L, pantoprazole 40 mg IV x1, Ciprofloxacin 400mg in 200 mls IV x1, hydromorphone 1 mg IV x1, Metronidazole 500 mg IV x1, acetaminophen 1000 mg IV x1, ondansetron 4mg IV x1. Past Medical History: as above Past Surgical History: bilateral nephrostomy tubes in ary 2024, appendenctomy and cholecystectomy. Family History: extensive family history of cardiac disease and lung problems. Social History: - Smoking: denies - Alcohol: denies - Illicit drugs: denies - Residence: lives in [place] in a SNF. Current Medications: pending med recs. Allergies: cephalexin - diarrhea, sulfa antibiotics - rash, coconut oil - rash. Exam Vital Signs Temp Pulse Resp BP Pulse Ox O2 Del Method O2 Flow Rate 97.9 F 92 12 97/53 L 100 High Flow Nasal Cannula 05/24/25 08:00 05/24/25 10:05/24/25 08:00 05/24/25 10:05/24/25 10:05/24/25 08:00 05/24/25 06:42 FiO2 40 05/24/25 06:42 Narrative Exam General: Obese body habitus. Follows commands. NC in place at 2L. Head: Normocephalic, atraumatic. Right central line site is clean, dry and intact. Eyes: Pupils equally round and reactive to light. Anicteric. Mouth/Throat: Moist mucous membranes. Heart: Regular rate and rhythm, no murmurs. No JVD. Lungs: Clear to auscultation bilaterally. Non-labored respirations, symmetric chest rise, no use of accessory muscles. Abdomen: Soft and tender to touch, no rebound. Midline incision under bandage with daina, bruising at site. Ostomy LLQ. : No tomlinson, nephrostomy drains with minimal output. Neurologic: Alert and oriented x3, no gross neurological deficit, and patient able to move all 4 extremities. Extremities: Mild edema of hands. 1+ edema of feet. Posterior tibial pulses are 2+ bilaterally. 2+ radial pulse bilaterally. No clubbing or cyanosis. No mottling. A-line removed from left groin. Skin: No rash. Objective Labs 05/24/25 05:17 05/24/25 05:17 Labs: Laboratory Results - last 24 hr 05/24/25 05/24/25 05:17 09:47 WBC 8.9 D RBC 2.79 L Hgb 7.9 L Hct 24.7 L MCV 89 MCH 28.3 MCHC 32.0 RDW Std Deviation 58.4 H Plt Count 60 L D Neut % (Auto) 89 H Lymph % (Auto) 4 L [place] % (Auto) 3 Eos % (Auto) 0 Baso % (Auto) 1 Neut # (Auto) 7.9 H Lymph # (Auto) 0.4 L [place] # (Auto) 0.3 Eos # (Auto) 0.0 Baso # (Auto) 0.1 Immature Gran # (Auto) 0.18 H Absolute Nucleated RBC 0.03 H Immature Gran % 2 H Nucleated RBC % 0 Sodium 141 Potassium 3.8 Chloride 99 Carbon Dioxide 25.9 Anion Gap 16 BUN 14 Creatinine 1.4 H Estim Creat Clear Calc 50.8 L eGFR 40 L BUN/Creatinine Ratio 10 L Glucose 81 Calculated Osmolality 280 Calcium 8.4 Corrected Calcium 8.4 L Phosphorus 1.7 L Magnesium 2.3 Total Bilirubin 0.7 AST 21 ALT 8 L Alkaline Phosphatase 96 Total Protein 5.1 L Albumin 4.0 D Globulin 1.1 L Albumin/Globulin Ratio 3.6 H Blood Type O Positive Antibody Screen POSITIVE Antibody Identification Anti-E Blood Bank Wristband ID Yes ABG Interpretation ABG results: 05/16/25 05/16/25 05/16/25 12:11 18:26 19:18 ABG pH 7.41 ABG pCO2 29 L ABG pO2 86 ABG HCO3 18 L ABG O2 Saturation 96 ABG Base Excess -6 L VBG pH 7.26 L 7.36 VBG pCO2 36 32 L VBG pO2 49 46 VBG Base Excess -10 L -7 L 05/17/25 05/17/25 05/17/25 01:51 01:58 12:35 ABG pH 7.34 L 7.21 L D ABG pCO2 30 L 30 L ABG pO2 92 181 H D ABG HCO3 16 L 12 L ABG O2 Saturation 97 99 H ABG Base Excess -9 L -15 L VBG pH 7.28 L VBG pCO2 37 VBG pO2 60 H VBG Base Excess -9 L 05/17/25 05/17/25 05/18/25 15:12 22:59 04:06 ABG pH 7.17 L* 7.26 L 7.23 L ABG pCO2 32 26 L 32 ABG pO2 343 H D 298 H D 208 H D ABG HCO3 12 L 12 L 13 L ABG O2 Saturation 100 H 100 H 100 H ABG Base Excess -16 L -14 L -13 L VBG pH VBG pCO2 VBG pO2 VBG Base Excess 05/18/25 05/19/25 05/20/25 12:10 07:13 17:49 ABG pH 7.49 H D ABG pCO2 35 ABG pO2 126 H D ABG HCO3 26 ABG O2 Saturation 99 H ABG Base Excess 3 VBG pH 7.23 L 7.57 VBG pCO2 35 L 35 L VBG pO2 173 H D 36 D VBG Base Excess -12 L 10 H 05/21/25 05/22/25 10:08 04:59 ABG pH 7.45 7.44 ABG pCO2 34 32 ABG pO2 70 L D 140 H D ABG HCO3 24 22 ABG O2 Saturation Not Performed. 99 H ABG Base Excess 0 -2 VBG pH VBG pCO2 VBG pO2 VBG Base Excess Quality Measures Quality Measures VTE prophylaxis Advance care planning discussed with:: other Assessment & Plan Assessment Current Active Medications: Generic Name Dose Route Start Last Admin Trade Name Freq PRN Reason Stop Dose Admin Gabapentin 300 mg 05/21/25 21:00 05/23/25 21:26 Gabapentin 300 Mg Capsule PO 06/20/25 20:59 Not Given HS JESSICA Heparin Sodium (Porcine) 2,600 unit 05/23/25 19:07 05/23/25 19:23 Heparin Sod Inj 1000 Unit/Ml Vial 10 Ml INDWELLCAT 06/06/25 19:06 2,600 unit PRN PRN Administration DIALYSIS Heparin Sodium (Porcine) 5,000 unit 05/24/25 09:00 05/24/25 09:12 Heparin Sod Inj 5000 Unit/Ml Vial SC 06/07/25 08:59 5,000 unit Q12HR JESSICA Administration Hydrocortisone Sodium Succinate 50 mg 05/23/25 09:00 05/24/25 08:55 Hydrocortisone Sod Succ Inj 100 Mg 2 Ml Vial IV 06/22/25 08:59 50 mg BID JESSICA Administration Hydromorphone HCl 1 mg 05/23/25 10:12 05/24/25 08:46 Hydromorphone Inj 2 Mg/Ml Vial IVP 05/26/25 11:43 1 mg Q3HR PRN Administration Breakthrough Pain 7-10 Fentanyl Citrate 2,500 mcg in 250 mls @ 2.5 mls/hr 05/20/25 08:59 05/23/25 02:00 Sublimaze Inj 2,500 Mcg/250 Ml Bag IV 05/25/25 08:58 Infused .Q24H PRN Titration PER PROTOCOL Protocol 25 MCG/HR Piperacillin/Tazobactam/Dextrose 3.375 gm in 50 mls @ 12.5 mls/hr 05/22/25 22:30 05/24/25 06:10 Zosyn IV 05/28/25 17:59 12.5 mls/hr Q8HR JESSICA Administration Protocol Albumin Human 25 gm in 100 mls @ 100 mls/min 05/23/25 16:03 Albuminex 25% Ivpb IV PRN PRN DIALYSIS Potassium Phosphate 15 mmol in 250 mls @ 62.5 mls/hr 05/24/25 08:23 05/24/25 08:57 Pot Phos 15 Mmol In Ns 250 Ml IV 05/24/25 16:22 62.5 mls/hr Q4H JESSICA Administration Melatonin 3 mg 05/21/25 21:00 05/23/25 21:27 Melatonin 3 Mg Tablet PO 06/20/25 20:59 Not Given HS JESSICA Ondansetron HCl 4 mg 05/16/25 18:34 05/17/25 09:51 Ondansetron Inj 2 Mg/Ml Inj 2 Ml IVP 06/15/25 18:33 4 mg Q6H PRN Administration NAUSEA OR VOMITING Protocol Pantoprazole Sodium 40 mg 05/17/25 09:00 05/24/25 08:56 Pantoprazole Inj 40 Mg Vial IVP 06/16/25 08:59 40 mg QDAY JESSICA Administration Pharmacy Consult 1 each 05/16/25 16:37 Pharmacy Renal Dose Adjustment 1 Ea XX 06/15/25 16:36 PRN PRN CONSULT Plan 70-year-old female with history of nephrolithiasis (s/p bilateral nephrostomy tubes Sep 2024), endometrial cancer in remission, T2DM, and chronic anemia presenting with severe abdominal pain, vomiting, fever, and chills, found to have acute sigmoid diverticulitis with localized perforation and sepsis requiring ICU admission. Neurology #Post-operative pain Treatment Review (completed): - Weaned off fentanyl. Treatment Plan: - Gabapentin 300 mg PO HS (can also help prevent ICU delirium). - Hydromorphone 1 mg Q3HR PRN breakthrough pain. #Chemical sedation (titrated off) Treatment Plan: - Stopped propofol and fentanyl. - Melatonin 3mg PO HS to help prevent ICU delirium. Cardiovascular #Septic shock, likely secondary to (resolved) #Perforated sigmoid diverticulitis with feculent peritonitis DDx: septic shock (distributive) vs hypovolemia vs cardiogenic shock. Likely due to distributive shock from sepsis. Lactate > 2 despite adequate IV fluids (30 mL/kg). Poor clearance now due to renal failure. Check central saturation to correlate. No evidence of cardiogenic component at this time. Diagnostic Test: - Met 3/4 SIRS criteria on admission: T 101.1F, RR 31, WBC 16.3. - qSOFA score of 2 (RR 31 and SBP 84). - Confirmed or suspected infection: ruptured diverticulitis. - CT abd/pelvis: diverticulitis of large intestine with perforation. - End organ damage: WARREN due to sepsis: baseline Cr 0.8-1.3. Cr 2.3 on this admission. - Lactic acidosis due to sepsis: lactic acid level of 4.8 on admission. - Troponin < 0.002. - BP 84/58 on admission. - Echo 05/18: Normal LV size, wall thickness. Estimated LVEF at 60%. RV is normal in size and systolic function. Mild mitral regurgitation. Mild tricuspid regurgitation. - Urine culture- MDR Ecoli. - Blood culture - no growth. Treatment Review (completed) - Fluids: 30 mL/kg given in the ED. - S/p exploratory laparotomy, sigmoid colectomy with end descending colostomy and hysterectomy on 05/17. - Ciprofloxacin 400mg in 200mls IV Q12H (05/16-05/19). - Metronidazole 500mg in 100mls IV Q8H (05/16-05/19). - Successfully weaned off Levophed around 11pm on 05/22. - Hydrocortisone 50 mg every 6 hours (200 mg total)(05/19 - 05/23). Treatment Plan: - Continue to taper stress steroid dose - hydrocortisone: 50 mg twice daily (100 mg total) until 05/25, then 25 mg IV Q12H (50 mg total) for 2 days (05/26- 05/27), then 25 mg IV daily for 2 days (05/28-05/29) then stop. Monitor blood pressure, glucose, mental status, and signs of adrenal insufficiency (fatigue, hypotension) - Continue to treat MDR E.coli UTI with Zosyn (05/19-05/28). Respiratory #Acute respiratory failure, post-op (resolved) Patient intubated during surgical procedure. Likely due to mechanical overventilation. Diagnostic Test: - ABG 05/20: pH 7.49, pCO2 35, pO2 126, HCO3 26. - ABG 05/21: pH 7.45, pCO2 34, pO2 70, HCO3 24. - ABG 05/22: pH 7.44, pCO2 32, pO2 140, HCO3 22. Treatment review (completed) - Extubated on 05/23. Transitioned to HFNC. - Passed swallow evaluation 05/24. Treatment plan: - Continue with NC 2L, wean off as tolerated. - Continue to monitor respiratory status through oxygen saturation, HR, and assessing ability to clear secretions and protecting airway. - Continue to monitor neurological status. #History of COPD Diagnostic Test: - No cardinal symptoms of COPD exacerbation such as increase sputum purulence or volume, or increase dyspnea. - VBG 05/16 12:11 showed pH 7.26, pCO2 36. - VBG 05/16 18:26 showed pH 7.36, pCO2 32. - ABG 05/16 19:18 showed pH 7.41, pCO2 29, pO2 82, HCO3 18. - CXR 05/16: Significant left base pneumonia. - CXR 05/17: Prominent left base pneumonia. Treatment Plan: - Monitor O2 saturation and respiratory effort. - No steroids or bronchodilators unless COPD exacerbation evident. GI, , F/E/N #Perforated sigmoid diverticulitis with feculent peritonitis (post-op day 7) S/p exploratory laparotomy, sigmoid colectomy with end descending colostomy and hysterectomy on 05/17. Diagnostic Test: - CT abd/pelvis: acute sigmoid diverticulitis with localized rupture of diverticula and mild pelvic pneumoperitoneum. - Surgery findings: inflamed and thickened sigmoid with large perforation and feculent peritonitis. Inflamed and necrotic appearing uterus. Very thin anterior abdominal fascia with evidence of multiple mesh placements from prior operations. - Pathology report 05/16: uterus - endometroid carcinoma with extensive necrosis with negative surgical margins. Sigmoid colon - extensive diverticulosis with perforation and inflammation. Treatment Review (completed) - Trophic feeds (05/22 - 05/23). Treatment Plan: - Ondansetron 4mg IV Q6H PRN for nausea. - Monitor colostomy bag for activity. - Start liquid diet and progress to solids as tolerated. - May use abdominal binder as needed. - Ambulate out of bed twice daily #History of endometrial cancer #Recurrent endometrial cancer Diagnostic Test: - Pathology report 05/16: uterus - endometroid carcinoma with extensive necrosis with negative surgical margins. Treatment Plan: - Being followed with Rad/Onc in [place]. Renal #Primary anion gap metabolic acidosis (resolved) DDx: lactic acidosis vs early renal failure Diagnostic Test: - Anion gap 19.1 - CMP bicarb 19.9. Treatment Review: - 05/22 albumin challenge with 2 mg IV Bumex twice daily, urine output of 45 cc. - Hemodialysis with 1L removed on 05/23. Treatment Plan: - Plan for dialysis tomorrow (05/25). #Acute kidney injury (improving) #Anuria DDx: hypoperfusion vs sepsis vs obstrutive component from nephrostomy tubes vs recovering ATN following septic shock. Diagnostic Test: - Baseline Cr: 0.8-1.3. - Cr 2.3 on admission. - CT abd/pelvis: Bilateral nephrostomy ureteral catheter. Treatment Review (completed) - Tablo/REVENUE MANAGER on 05/19, Continued REVENUE MANAGER with goal -1L/24 hours. Stopped at 4pm on 05/20. - 05/22: albumin challenge with 2 mg IV Bumex twice daily, urine output of 45. - Hemodialysis with 1L removed on 05/23. Treatment Plan: - Daily renal panel to trend Cr. - Avoid nephrotoxins. - Renally dose meds as appropriate. - Strict I&Os, monitor urine output closely. - Maintain MAP >65 mmHg for renal perfusion. - Plan for dialysis tomorrow (05/25). #Hematuria Diagnostic Test: - UA: RBC 54. Treatment Plan: - Follow-up outpatient with urology to work-up hematuria. #Obstrutive nephrolithiasis s/p nephrostomy tube Treatment Plan: - Continue with nephrostomy tube. - Monitor urine output. - Nephrostomy tubes flushed with normal saline on 05/24. Heme #Normocytic anemia DDx: anemia of chronic disease vs iron-deficiency anemia vs reactive. Diagnostic Test: - Hemoglobin 05/21: 6.8 --> 6.7. Treatment Review (completed). - 2 units of pRBCs were transfused after surgery on 05/17. - 1 unit of pRBC transfused on 05/21 for hemoglobin of 6.7. Post-transfusion hemoglobin 8.2. Treatment Plan: - Monitor H&H. - Transfusing for Hgb <7 or symptomatic. - Peripheral blood smear pending. - Haptoglobin levels pending to evaluate for hemolysis. #Thrombocyopenia (improving) DDx: Consumptive Diagnostic Test: - Plt 602 on admission. - Plt 419 on 05/17, 106 on 05/18 - Plt 11 05/19 - Plt 8 05/20 - Plt 39 post platelet transfusion 05/20. - Suspect consumptive in setting of significant open abdominal surgery Treatment Plan: - Monitor platelets, transfuse to keep > 10k, >20k for invasive procedures. - Restarted heparin 5000 SC Q12H on 05/24 for DVT PPX since platelets are improving. #Leukocytosis (resolved) DDx: reactive vs URI vs pneumonia Diagnostic Test: . - WBC: 14.6 --> 16.3 --> 17.3--> 13.7 Treatment Plan - Continue to treat UTI/ intrabdominal infection with Zosyn (05/19-05/28). Endo #Noninsulin dependent T2DM Diagnostic Test: - Hemoglobin A1c on 05/12/2025 was 5.2. - Blood glucose 154 on admission. - Glucose at goal <180. Treatment Plan: - Continue to check blood glucose levels as diet has been restarted. - Will start insulin if need better glycemic control. ID #E. Coli urinary tract infection Diagnostic Test: - Urinalysis: blood 2+, RBC 54, WBC 1069, bacteria 4+, positive leukocyte esterase. - Patient has history of positive UAs. - 10/31/24 urine culture: Klebsiella. Started Ciprofloxacin 400 mg. - Urine culture 05/16 showed E. Coli. Treatment Review (completed): - Ciprofloxacin (05/17-05/19). Treatment Plan: - Zosyn dosing per pharmacy for E.coli on urine culture (05/19-05/28). Health Maintenance: Disposition: Tele DVT prophylaxis: heparin 5000 SC. GI prophylaxis: Pantoprazole 40 mg IV daily. Diet: liquid diet [place]: none Lines:right IJ dialysis cath. Drips: none Vent: extubated 05/23 CODE STATUS: FULL CODE Patient plan of care was discussed with the senior resident, Dr. Manning, and attending physician, Dr. Coker. Becca Diop DO Internal Medicine PGY-1 Attending Provider Attestation/Addendum Patient seen and examined with the above resident, Becca Diop DO. I agree with the findings, assessment, and plan of care as documented except for any differences below. Patient tolerated HD well overnight. No need for resumption of vasopressor support, adequate BP for fluid removal as well. Mentation continues to return to baseline though visibly still exhausted. Wounds reviewed with surgery, no intervention, some bruising from intermittent severe thrombocytopenia which is starting to improve as well. Resume subQ heparin for chemical VTE prophylaxis at this time. Tolerating PO diet with poor appetite. Appropriate stool output from ostomy. Pain well controlled with decreasing requirements for dilaudid. Patient's nephrostomy tubes were flushed with no significant output, ATN with likely protracted course/ need for HD now. Has been fortunate to survive the acute process but remains at significant risk for poor outcome. Needs aggressive PT/OT. Mobilize to bedside chair today. Total critical care time: I personally spent 35 minutes for review of physiologic parameters, directing plan of care, coordination of care with other specialists, and counseling patient at bedside. This is exclusive of time spent teaching housestaff or performing any separate billable procedures. The patient remained at significant risk for further morbidity and mortality warranting close monitoring and care only available in the ICU. Critical care services required for acute respiratory failure, acute renal failure, septic shock, diverticultis s/p perforation.
[2025-05-24 14:29] LABS: Slide Review Platelets confirmed
--- NOTE | 2025-05-24 17:07 | PC.SS ---
Patient's son Kwadwo Kiser .
--- NOTE | 2025-05-24 17:12 | ESPR_ITS ---
<Statement entered by Juan Luis Manzo MD - 05/29/25 08:35> I reviewed above note and agree with findings and plans. I have also personally examined the patient with medicine team and went over assessment and plan with medical team including internal recruiter and resident physician. Documentation for date of: 05/24/25 Subjective Subjective Interval history: Labs reviewed and patient examined at the bedside. Maxine Kiser is a 70-year-old female downgraded from ICU to telemetry on 05/24/2025. Patient was admitted to ICU on 05/16/2025 for septic shock due to perforated sigmoid diverticulitis with feculent peritonitis. She received exploratory laparotomy, sigmoid colectomy with end descending colostomy and hysterectomy on 05/17. The patient will receive hydrocortisone 50 mg twice daily until tomorrow 05/25. The patient is on IV Zosyn 3.375 g. Patient is pending dialysis tomorrow 05/25. Will continue to monitor. Exam Vital Signs Temp Pulse Resp BP Pulse Ox O2 Del Method O2 Flow Rate 97.8 F 84 18 90/59 L 100 Nasal Cannula 05/24/25 12:00 05/24/25 16:00 05/24/25 16:00 05/24/25 16:00 05/24/25 16:00 05/24/25 12:00 05/24/25 06:42 FiO2 40 05/24/25 06:42 Narrative Exam General: Obese, distressed, frail, elderly, AAO x3 Eye: Normal conjunctiva, no scleral icterus HENT: Normocephalic, atraumatic, hearing intact to conversation at normal volume, moist oral mucosa. Neck: Supple, non-tender, no JVD, no lymphadenopathy Lungs: Non-labored respirations, symmetric chest rise, Clear to auscultate bilaterally, No wheezing, rhonchi, crackles Heart: Peripheral pulses intact bilaterally, Regular Rate and Rhythm. Abdomen: Midline incision under bandage with daina, bruising at site. Ostomy LLQ. Musculoskeletal: Normal range of motion and strength, No cyanosis or edema, No visible joint swelling, nephrostomy drains with minimal output. +1 edema in BLE. Right upper chest chemo port noted. Skin: Skin is warm, dry, no rashes or lesions. Psychiatric: Cooperative, appropriate mood and affect, Awake and alert Neuro: Cranial nerves II-XII grossly intact. Sensations intact to light touch. Objective Labs 05/24/25 05:17 05/24/25 05:17 Labs: Laboratory Results - last 24 hr 05/24/25 05/24/25 05:17 09:47 WBC 8.9 D RBC 2.79 L Hgb 7.9 L Hct 24.7 L MCV 89 MCH 28.3 MCHC 32.0 RDW Std Deviation 58.4 H Plt Count 60 L D Neut % (Auto) 89 H Lymph % (Auto) 4 L [place] % (Auto) 3 Eos % (Auto) 0 Baso % (Auto) 1 Neut # (Auto) 7.9 H Lymph # (Auto) 0.4 L [place] # (Auto) 0.3 Eos # (Auto) 0.0 Baso # (Auto) 0.1 Immature Gran # (Auto) 0.18 H Absolute Nucleated RBC 0.03 H Immature Gran % 2 H Nucleated RBC % 0 Sodium 141 Potassium 3.8 Chloride 99 Carbon Dioxide 25.9 Anion Gap 16 BUN 14 Creatinine 1.4 H Estim Creat Clear Calc 50.8 L eGFR 40 L BUN/Creatinine Ratio 10 L Glucose 81 Calculated Osmolality 280 Calcium 8.4 Corrected Calcium 8.4 L Phosphorus 1.7 L Magnesium 2.3 Total Bilirubin 0.7 AST 21 ALT 8 L Alkaline Phosphatase 96 Total Protein 5.1 L Albumin 4.0 D Globulin 1.1 L Albumin/Globulin Ratio 3.6 H Misc Test Result Platelets confirmed Blood Type O Positive Antibody Screen POSITIVE Antibody Identification Anti-E Blood Bank Wristband ID Yes ABG Interpretation ABG results: 05/16/25 05/16/25 05/16/25 12:11 18:26 19:18 ABG pH 7.41 ABG pCO2 29 L ABG pO2 86 ABG HCO3 18 L ABG O2 Saturation 96 ABG Base Excess -6 L VBG pH 7.26 L 7.36 VBG pCO2 36 32 L VBG pO2 49 46 VBG Base Excess -10 L -7 L 05/17/25 05/17/25 05/17/25 01:51 01:58 12:35 ABG pH 7.34 L 7.21 L D ABG pCO2 30 L 30 L ABG pO2 92 181 H D ABG HCO3 16 L 12 L ABG O2 Saturation 97 99 H ABG Base Excess -9 L -15 L VBG pH 7.28 L VBG pCO2 37 VBG pO2 60 H VBG Base Excess -9 L 05/17/25 05/17/25 05/18/25 15:12 22:59 04:06 ABG pH 7.17 L* 7.26 L 7.23 L ABG pCO2 32 26 L 32 ABG pO2 343 H D 298 H D 208 H D ABG HCO3 12 L 12 L 13 L ABG O2 Saturation 100 H 100 H 100 H ABG Base Excess -16 L -14 L -13 L VBG pH VBG pCO2 VBG pO2 VBG Base Excess 05/18/25 05/19/25 05/20/25 12:10 07:13 17:49 ABG pH 7.49 H D ABG pCO2 35 ABG pO2 126 H D ABG HCO3 26 ABG O2 Saturation 99 H ABG Base Excess 3 VBG pH 7.23 L 7.57 VBG pCO2 35 L 35 L VBG pO2 173 H D 36 D VBG Base Excess -12 L 10 H 05/21/25 05/22/25 10:08 04:59 ABG pH 7.45 7.44 ABG pCO2 34 32 ABG pO2 70 L D 140 H D ABG HCO3 24 22 ABG O2 Saturation Not Performed. 99 H ABG Base Excess 0 -2 VBG pH VBG pCO2 VBG pO2 VBG Base Excess Quality Measures Quality Measures VTE prophylaxis Advance care planning discussed with:: patient and other Assessment & Plan Assessment Current Active Medications: Generic Name Dose Route Start Last Admin Trade Name Freq PRN Reason Stop Dose Admin Gabapentin 300 mg 05/21/25 21:00 05/23/25 21:26 Gabapentin 300 Mg Capsule PO 06/20/25 20:59 Not Given HS JESSICA Heparin Sodium (Porcine) 2,600 unit 05/23/25 19:07 05/23/25 19:23 Heparin Sod Inj 1000 Unit/Ml Vial 10 Ml INDWELLCAT 06/06/25 19:06 2,600 unit PRN PRN Administration DIALYSIS Heparin Sodium (Porcine) 5,000 unit 05/24/25 09:00 05/24/25 09:12 Heparin Sod Inj 5000 Unit/Ml Vial SC 06/07/25 08:59 5,000 unit Q12HR JESSICA Administration Hydrocortisone Sodium Succinate 50 mg 05/23/25 09:00 05/24/25 08:55 Hydrocortisone Sod Succ Inj 100 Mg 2 Ml Vial IV 06/22/25 08:59 50 mg BID JESSICA Administration Hydromorphone HCl 1 mg 05/23/25 10:12 05/24/25 12:15 Hydromorphone Inj 2 Mg/Ml Vial IVP 05/26/25 11:43 1 mg Q3HR PRN Administration Breakthrough Pain 7-10 Piperacillin/Tazobactam/Dextrose 3.375 gm in 50 mls @ 12.5 mls/hr 05/22/25 22:30 05/24/25 13:11 Zosyn IV 05/28/25 17:59 12.5 mls/hr Q8HR JESSICA Administration Protocol Melatonin 3 mg 05/21/25 21:00 05/23/25 21:27 Melatonin 3 Mg Tablet PO 06/20/25 20:59 Not Given HS JESSICA Ondansetron HCl 4 mg 05/16/25 18:34 05/17/25 09:51 Ondansetron Inj 2 Mg/Ml Inj 2 Ml IVP 06/15/25 18:33 4 mg Q6H PRN Administration NAUSEA OR VOMITING Protocol Pantoprazole Sodium 40 mg 05/17/25 09:00 05/24/25 08:56 Pantoprazole Inj 40 Mg Vial IVP 06/16/25 08:59 40 mg QDAY JESSICA Administration Pharmacy Consult 1 each 05/16/25 16:37 Pharmacy Renal Dose Adjustment 1 Ea XX 06/15/25 16:36 PRN PRN CONSULT Plan 70-year-old female with history of nephrolithiasis (s/p bilateral nephrostomy tubes Sep 2024), endometrial cancer in remission, T2DM, and chronic anemia presenting with severe abdominal pain, vomiting, fever, and chills, found to have acute sigmoid diverticulitis with localized perforation and sepsis requiring ICU admission on 05/16/2025. Patient downgraded to tele for monitoring patient's on 05/24/2025 condition #Septic shock - (resolved) #2/2 Perforated sigmoid diverticulitis with feculent peritonitis (post-op day 7) -On admission, 3/4 SIRS criteria on admission: BP 84/58 T 101.1F, RR 31, WBC 16.3. lactic acid level of 4.8 , Troponin < 0.002. -qSOFA score of 2 (RR 31 and SBP 84). -CT abd/pelvis: diverticulitis of large intestine with perforation. -WARREN due to sepsis: baseline Cr 0.8-1.3. Cr 2.3 on this admission. -Echo 05/18: Normal LV size, wall thickness. Estimated LVEF at 60%. RV is normal in size and systolic function. Mild mitral regurgitation. Mild tricuspid regurgitation. -Urine culture- MDR Ecoli, Blood culture - no growth. -S/p exploratory laparotomy, sigmoid colectomy with end descending colostomy and hysterectomy on 05/17. -CT abd/pelvis: acute sigmoid diverticulitis with localized rupture of diverticula and mild pelvic pneumoperitoneum. -Surgery findings: inflamed and thickened sigmoid with large perforation and feculent peritonitis. Inflamed and necrotic appearing uterus. Very thin anterior abdominal fascia with evidence of multiple mesh placements from prior operations. -Pathology report 05/16: uterus - endometroid carcinoma with extensive necrosis with negative surgical margins. Sigmoid colon - extensive diverticulosis with perforation and inflammation. Plan: -Continue to taper stress steroid dose - hydrocortisone: 50 mg twice daily (100 mg total) until 05/25, then 25 mg IV Q12H (50 mg total) for 2 days (05/26- 05/27), then 25 mg IV daily for 2 days (05/28-05/29) then stop. Monitor blood pressure, glucose, mental status, and signs of adrenal insufficiency (fatigue, hypotension) -Continue to treat MDR E.coli UTI with Zosyn (05/19-05/28). -Ondansetron 4mg IV Q6H PRN for nausea. -Monitor colostomy bag for activity. -Start liquid diet and progress to solids as tolerated. -May use abdominal binder as needed. -Ambulate out of bed twice daily -Gabapentin 300 mg PO HS (can also help prevent ICU delirium). -Hydromorphone 1 mg Q3HR PRN breakthrough pain. #Acute kidney injury - Resolving #Anuria #Hx of nephrolithiasis, s/p bilateral nephrostomy tubes in September 2024 #Hematuria -WARREN likely multifactorial; Hypoperfusion from sepsis vs Obstruction from nephrostomy tube vs ATN after septic shock -Cr 2.3 on admission. Baseline Cr: 0.8-1.3. -UA: RBC 54. -CT abd/pelvis: Bilateral nephrostomy ureteral catheter. Plan: -Pending dialysis 05/25 -Avoid nephrotoxins. -Renally dose meds as appropriate. -Strict I&Os, monitor urine output closely. -Maintain MAP >65 mmHg for renal perfusion. #UTI -Urine culture 05/16 showed E. Coli. -IV Zosyn (05/19-05/28). #Normocytic anemia -2 unit pRBC transfusion on 05/17 after surgery and 1 unit pRBC transfusion on 05/21 for Hgb 6.7 Plan: -Monitor H&H. -Transfusing for Hgb <7 or symptomatic. -Peripheral blood smear pending. -Haptoglobin levels pending to evaluate for hemolysis #Thrombocyopenia -Resolving -Plt 602 on admission, Plt 419 on 05/17, 106 on 05/18, Plt 11 05/19, Plt 8 05/20, Plt 39 post platelet transfusion 05/20. Plan: -Heparin 5000 sc q12hr restarted 05/24 for DVT ppx. - Monitor platelets, transfuse to keep > 10k, >20k for invasive procedures. #Leukocytosis - Resolving -Continue IV Zoysn #Noninsulin dependent T2DM -Hemoglobin A1c on 05/12/2025 was 5.2. and Blood glucose 154 on admission. Plan: -Monitor glucose level -Possible SSI based on patient's glucose level #Hx of COPD -Monitor O2 saturation and respiratory effort. -No steroids or bronchodilators unless COPD exacerbation evident. #History of endometrial cancer #Recurrent endometrial cancer -F/u outpt in [place]. #Primary anion gap metabolic acidosis - Resolved Disposition: Tele for obs Diet: liquid diet GI prophylaxis: heparin 5000 SC. DVT prophylaxis: Pantoprazole 40 mg IV daily. Code:FULL CODE Assessment and plan discussed with my attending physician Dr. Jovany Barba (PGY-1) - Internal medicine resident
[2025-05-24] MEDS: GABAPENTIN 300 MG CAPSULE PO (20:16)
[2025-05-24] MEDS: MELATONIN 3 MG TABLET PO (20:16)
[2025-05-25] VITALS (76 sets, daily range): BP systolic 71–121; BP diastolic 45–81; PULSE 80–132; RESP 12–41; TEMP 36.4–36.6; O2SAT 84–100
[2025-05-25] MEDS: PIPER/TAZO 3.375 GM PREMIX 3.375 GM/50 ML BAG IV ×3 (05:24→21:21)
[2025-05-25 06:17] LABS: Basophils # (Auto) 0.1 Thou/mm3 (0.0-0.2); Basophils % (Auto) 1 % (0-2.5); Eosinophils # (Auto) 0.0 Thou/mm3 (0.0-0.5); Eosinophils % (Auto) 0 % (0-10); Hematocrit 25.1 % (36.0-46.0); Immature Granulocytes Auto 0.48 Thou/mm3 (0.00-0.00); Lymphocytes # (Auto) 0.4 Thou/mm3 (1.0-4.8); Lymphocytes % (Auto) 4 % (10-50); Mean Corpuscular HGB Conc 31.9 g/dl (31.0-37.0); Mean Corpuscular Hemoglobin 28.2 pg (25.0-35.0); Mean Corpuscular Volume 88 fL (80-100); Monocytes # (Auto) 0.3 Thou/mm3 (0.0-0.8); Monocytes % (Auto) 3 % (0-12); Neutrophils # (Auto) 9.5 Thou/mm3 (1.8-7.7); Neutrophils % (Auto) 88 % (37-80); Nucleated Red Blood Cell # 0.05 Thou/mm3 (0.00-0.00); Nucleated Red Blood Cell % 1 /100 WBC (0); Platelet Count 90 Thou/mm3 (140-440); RDW Standard Deviation 58.0 fL (36.4-46.3); Red Blood Count 2.84 Miln/mm3 (4.00-5.20); White Blood Count 10.8 Thou/mm3 (3.6-11.0)
[2025-05-25 06:22] LABS: Hemoglobin 8.0 g/dL (12.0-16.0)
[2025-05-25 06:39] LABS: Alanine Aminotransferase 11 U/L (10-49); Albumin, Serum 3.7 gm/dL (3.4-4.8); Albumin/Globulin Ratio 2.8 (1.2-2.2); Alkaline Phosphatase 95 U/L (46-116); Anion Gap 16 (7-16); Aspartate Amino Transferase < 8 U/L (0-34); BUN/Creatinine Ratio 11 Ratio (12-20); Bilirubin,Total 0.6 mg/dL (0.3-1.2); Blood Urea Nitrogen 19 mg/dL (9-23); Calcium 8.1 mg/dL (8.3-10.6); Calcium (Corrected) 8.3 mg/dL (8.5-10.1); Carbon Dioxide 27.4 mMol/L (20.0-31.0); Chloride 100 mMol/L (98-107); Creatinine (Component) 1.7 mg/dL (0.6-1.3); Estimated Creatinine Clearance 41.8 mL/min (>60); Globulin 1.3 gm/dL (2.3-3.5); Glucose 95 mg/dL (74-106); Magnesium 2.2 mg/dL (1.6-2.6); Osmolality,Calculated 287 (275-295); Phosphorous 3.4 mg/dL (2.4-5.1); Potassium 4.3 mMol/L (3.4-5.1); Sodium 143 mMol/L (136-145); Total Protein 5.0 gm/dL (5.7-8.2); eGFR 32 See Note
--- NOTE | 2025-05-25 07:23 | XR_ITS ---
EXAMINATION: AP chest single view TECHNIQUE: AP portable semiupright chest single view Date and time: May 25, 2025, 0749 hours, comparison May 18, 2025 INDICATIONS: O2 desaturation today FINDINGS: Interval total opacification left hemithorax with shift of trachea slightly to the left Mild vascular congestion Right internal jugular Port-A-Cath and temporary dialysis catheter satisfactory position IMPRESSION: Findings most consistent with total left lung atelectasis perhaps related to mucous plug in the mainstem bronchus Recommend ultrasound left hemithorax to confirm atelectasis and exclude left pleural fluid
[2025-05-25] MEDS: LEVALBUTEROL RT 0.63 MG/3 ML NEBU INH (07:35)
--- NOTE | 2025-05-25 07:51 | ESPR_ITS ---
Documentation for date of: 05/25/25 Subjective Subjective Interval history: Reason for consult: Oliguria/Anuria - WARREN in ICU patient post-septic shock and exploratory lap History of present illness: 70-year-old female with a history of nephrolithiasis (s/p bilateral nephrostomy tubes placed Sep 2024), endometrial cancer in remission, type 2 diabetes mellitus, chronic anemia, and COPD, admitted with perforated sigmoid diverticulitis and feculent peritonitis. She underwent exploratory laparotomy, sigmoid colectomy with end descending colostomy, and hysterectomy on 05/17. Nephrology was re-consulted today for no urine output. Overnight urine output was 50 cc total, despite adequate fluid resuscitation and pressor support (on norepinephrine and vasopressin). Patient remains in the ICU, intubated and sedated on propofol/fentanyl, receiving broad-spectrum antibiotics (ciprofloxacin + metronidazole). 05/18/2025: Patient seen in ICU during morning rounds. Intubated, sedated, on vasopressor support. No urine output noted from nephrostomy tubes or Bal. Nursing reports total 50 cc output overnight. No new fevers reported. BP 112/57 mmHg, HR 82. Labs: WBC 18.6, Hgb 10.4, Hct 31.6, Plt 106 (yesterday 419), Na 136, K 5.4, Cl 108, CO2 13.4, BUN 40, Cr 2.5 (GFR 20), Ca 8.8, Phos 6.0, Mg 2.1, Albumin 2.7, Alk Phos 176, Lactic acid 3.0->3.2. ABG: pH 7.30, pCO2 32, HCO3 13. 05/19/2025: Patient currently seen in ICU. On CRRT. On ventilator. Patient more alert and awake. No urine output from nephrostomy tubes or Bal. She had a sigmoid resection and colostomy with minimal stool. Labs, medications reviewed. Will continue with CRRT for next [address] Coker who is at bedside. 05/21/2025: Patient seen today in the ICU. She remains intubated, sedated, and critically ill. No significant urine output noted overnight; nephrostomy tubes remain with minimal drainage. Blood pressure stable on low-dose pressor support. No plans for [employer] today, will re-evaluate tomorrow based on hemodynamics, urine output, and lab trends. Labs: WBC 7.4, Hgb 6.8, Hct 20.6, Plt 39, Na 130, K 4.4, Cl 99, CO2 22.7, Cr 0.7 (GFR >60), Ca 8.9, Phos 2.7, Mg 1.7. ABG: pH 7.45, pCO2 34, HCO3 24. No acute respiratory distress noted; acidosis resolved. 05/22/2025: Patient seen today in the ICU. Still intubated and sedated, overall condition unchanged from yesterday. No urine output overnight; bilateral nephrostomy tubes with minimal drainage (~20 cc total). No dialysis planned for today. Will trial Bumex 2 mg IV twice daily with albumin 25 g IV twice daily to assess for diuretic responsiveness. Will re-evaluate tomorrow for potential dialysis depending on output and lab trends. BP 99/61, HR 65. Labs: WBC 7.0, Hgb 8.5, Hct 26, Plt 30, Na 138, K 4.4, Cl 99, CO2 20, BUN 13, Cr 1.3, Ca 8.7, Phos 2.1, Mg 1.8. 05/23/2025: Patient seen today in ICU. She remains intubated and sedated, currently being placed on pressure support trial to evaluate for possible extubation. She is off pressors. Tube feeds restarted yesterday and are being tolerated. No urine output overnight; nephrostomy tubes remain with minimal to no drainage. Renal function slightly worsened with Cr 1.7 (GFR 32). Considering dialysis today depending on overall fluid balance and metabolic trends. BP 103/68, HR 67. Labs: WBC 6.2, Hgb 7.6, Hct 22.8, Plt 37, Na 138, K 3.8, Cl 98, CO2 19, BUN 20, Cr 1.7 (GFR 32), Ca 8.8, Phos 2.3, Mg 1.9. 05/24/2025: Patient extubated today and more awake; follows commands well. Still no urine output overnight. Bilateral nephrostomy tubes flushed. Bumex will be discontinued today as it?s no longer helping, and dialysis will continue tomorrow. The patient tolerated dialysis well yesterday. BP 190/55, HR 89. Labs: WBC 8.9, Hgb 7.9, Hct 24.7, Plt 60, Na 141, K 3.8, Cl 99, CO2 25.9, BUN 14, Cr 1.4 (GFR 40), Ca 8.4, Phos 1.7, Mg 2.3. 05/25/2025: Seen today in the ICU. Patient is sitting up and following commands. Right leg more edematous than usual. No urine output overnight; nephrostomy tubes flushed with 80 cc of output. Dialysis ongoing today. Patient has been downgraded from ICU to primary team but remains in the ICU for monitoring. BP 82/64, HR 119. Labs: WBC 8.9, Hgb 7.9, Hct 25.1, Plt 90, Na 143, K 4.3, Cl 100, CO2 27.4, BUN 19, Cr 1.7 (GFR 32), Ca 8.8, Phos 3.4, Mg 2.2, Albumin 3.7. ABG: pH 7.33, pCO2 49, PaO2 173, HCO3 26. CXR: Impression: Total left lung atelectasis likely due to mucous plug; recommend ultrasound to confirm and exclude left pleural fluid. Exam Vital Signs Temp Pulse Resp BP Pulse Ox O2 Del Method O2 Flow Rate 97.9 F 80 21 H 105/69 100 Nasal Cannula 2 05/25/25 04:00 05/25/25 04:00 05/25/25 04:00 05/25/25 04:00 05/25/25 04:00 05/24/25 12:00 05/25/25 04:00 FiO2 40 05/24/25 06:42 Narrative Exam General: Obese body habitus. Follows commands. Head: Normocephalic, atraumatic. Right central line site is clean, dry and intact. Eyes: Pupils equally round and reactive to light. Anicteric. Mouth/Throat: Moist mucous membranes. Heart: Regular rate and rhythm, no murmurs. No JVD. Lungs: Improved bilateral rhonchi heard on auscultation. Non-labored respirations, symmetric chest rise, no use of accessory muscles. Abdomen: Soft and tender to touch, no rebound. Midline incision under bandage with daina, bruising at site. Ostomy LLQ. : Nephrostomy tubes flushed with 80 cc output, minimal drainage. Neurologic: Alert and oriented x3, no gross neurological deficit, and patient able to move all 4 extremities. Extremities: Mild edema of hands. 2+ edema of feet. Posterior tibial pulses are 2+ bilaterally. 2+ radial pulse bilaterally. No clubbing or cyanosis. No mottling. Left groin with hematoma at A-line site. Skin: No rash. Objective Labs 05/25/25 04:45 05/25/25 04:45 Labs: Laboratory Results - last 24 hr 05/24/25 05/24/25 05/25/25 05:17 09:47 04:45 WBC 10.8 RBC 2.84 L Hgb 8.0 L Hct 25.1 L MCV 88 MCH 28.2 MCHC 31.9 RDW Std Deviation 58.0 H Plt Count 90 L D Neut % (Auto) 88 H Lymph % (Auto) 4 L [place] % (Auto) 3 Eos % (Auto) 0 Baso % (Auto) 1 Neut # (Auto) 9.5 H Lymph # (Auto) 0.4 L [place] # (Auto) 0.3 Eos # (Auto) 0.0 Baso # (Auto) 0.1 Immature Gran # (Auto) 0.48 H Absolute Nucleated RBC 0.05 H Immature Gran % 4 H Nucleated RBC % 1 H Sodium 143 Potassium 4.3 D Chloride 100 Carbon Dioxide 27.4 Anion Gap 16 BUN 19 Creatinine 1.7 H Estim Creat Clear Calc 41.8 L eGFR 32 L BUN/Creatinine Ratio 11 L Glucose 95 Calculated Osmolality 287 Calcium 8.1 L Corrected Calcium 8.3 L Phosphorus 3.4 Magnesium 2.2 Total Bilirubin 0.6 AST < 8 ALT 11 Alkaline Phosphatase 95 Total Protein 5.0 L Albumin 3.7 Globulin 1.3 L Albumin/Globulin Ratio 2.8 H Misc Test Result Platelets confirmed Blood Type O Positive Antibody Screen POSITIVE Antibody Identification Anti-E Blood Bank Wristband ID Yes ABG Interpretation ABG results: 05/16/25 05/16/25 05/16/25 12:11 18:26 19:18 ABG pH 7.41 ABG pCO2 29 L ABG pO2 86 ABG HCO3 18 L ABG O2 Saturation 96 ABG Base Excess -6 L VBG pH 7.26 L 7.36 VBG pCO2 36 32 L VBG pO2 49 46 VBG Base Excess -10 L -7 L 05/17/25 05/17/25 05/17/25 01:51 01:58 12:35 ABG pH 7.34 L 7.21 L D ABG pCO2 30 L 30 L ABG pO2 92 181 H D ABG HCO3 16 L 12 L ABG O2 Saturation 97 99 H ABG Base Excess -9 L -15 L VBG pH 7.28 L VBG pCO2 37 VBG pO2 60 H VBG Base Excess -9 L 05/17/25 05/17/25 05/18/25 15:12 22:59 04:06 ABG pH 7.17 L* 7.26 L 7.23 L ABG pCO2 32 26 L 32 ABG pO2 343 H D 298 H D 208 H D ABG HCO3 12 L 12 L 13 L ABG O2 Saturation 100 H 100 H 100 H ABG Base Excess -16 L -14 L -13 L VBG pH VBG pCO2 VBG pO2 VBG Base Excess 05/18/25 05/19/25 05/20/25 12:10 07:13 17:49 ABG pH 7.49 H D ABG pCO2 35 ABG pO2 126 H D ABG HCO3 26 ABG O2 Saturation 99 H ABG Base Excess 3 VBG pH 7.23 L 7.57 VBG pCO2 35 L 35 L VBG pO2 173 H D 36 D VBG Base Excess -12 L 10 H 05/21/25 05/22/25 10:08 04:59 ABG pH 7.45 7.44 ABG pCO2 34 32 ABG pO2 70 L D 140 H D ABG HCO3 24 22 ABG O2 Saturation Not Performed. 99 H ABG Base Excess 0 -2 VBG pH VBG pCO2 VBG pO2 VBG Base Excess Quality Measures Quality Measures VTE prophylaxis Advance care planning discussed with:: patient Assessment & Plan Assessment Current Active Medications: Generic Name Dose Route Start Last Admin Trade Name Freq PRN Reason Stop Dose Admin Epoetin Chivo 10,000 unit 05/25/25 10:00 Epoetin Chivo-Epbx Inj 10,000 Unit/Ml Vial (Non-Esrd) IV 05/25/25 10:01 X1 ONE Gabapentin 300 mg 05/21/25 21:00 05/24/25 20:16 Gabapentin 300 Mg Capsule PO 06/20/25 20:59 300 mg HS JESSICA Administration Heparin Sodium (Porcine) 2,600 unit 05/23/25 19:07 05/23/25 19:23 Heparin Sod Inj 1000 Unit/Ml Vial 10 Ml INDWELLCAT 06/06/25 19:06 2,600 unit PRN PRN Administration DIALYSIS Heparin Sodium (Porcine) 5,000 unit 05/24/25 09:00 05/24/25 20:15 Heparin Sod Inj 5000 Unit/Ml Vial SC 06/07/25 08:59 5,000 unit Q12HR JESSICA Administration Hydrocortisone Sodium Succinate 50 mg 05/23/25 09:00 05/24/25 20:15 Hydrocortisone Sod Succ Inj 100 Mg 2 Ml Vial IV 06/22/25 08:59 50 mg BID JESSICA Administration Hydromorphone HCl 1 mg 05/23/25 10:12 05/24/25 18:46 Hydromorphone Inj 2 Mg/Ml Vial IVP 05/26/25 11:43 1 mg Q3HR PRN Administration Breakthrough Pain 7-10 Piperacillin/Tazobactam/Dextrose 3.375 gm in 50 mls @ 12.5 mls/hr 05/22/25 22:30 05/25/25 05:24 Zosyn IV 05/28/25 17:59 12.5 mls/hr Q8HR JESSICA Administration Protocol Ipratropium [place] 0.5 mg 05/25/25 07:28 Ipratropium Rt 0.5 Mg/ 2.5 Ml Nebu INH 06/24/25 07:27 Q6HR PRN SHORTNESS OF BREATH Levalbuterol HCl 0.63 mg 05/25/25 07:28 Levalbuterol Rt 0.63 Mg/3 Ml Nebu INH 06/24/25 07:27 Q6HR PRN WHEEZING Melatonin 3 mg 05/21/25 21:00 05/24/25 20:16 Melatonin 3 Mg Tablet PO 06/20/25 20:59 3 mg HS JESSICA Administration Ondansetron HCl 4 mg 05/16/25 18:34 05/17/25 09:51 Ondansetron Inj 2 Mg/Ml Inj 2 Ml IVP 06/15/25 18:33 4 mg Q6H PRN Administration NAUSEA OR VOMITING Protocol Pantoprazole Sodium 40 mg 05/17/25 09:00 05/24/25 08:56 Pantoprazole Inj 40 Mg Vial IVP 06/16/25 08:59 40 mg QDAY JESSICA Administration Pharmacy Consult 1 each 05/16/25 16:37 Pharmacy Renal Dose Adjustment 1 Ea XX 06/15/25 16:36 PRN PRN CONSULT Plan 70F with history of nephrolithiasis (s/p bilateral nephrostomy tubes), endometrial cancer in remission, T2DM, COPD, and recent colectomy/colostomy for perforated diverticulitis complicated by septic shock and WARREN. Patient remains anuric with no urine output overnight but tolerated dialysis yesterday. Downgraded from ICU to primary team but still in ICU for ongoing monitoring. # Acute Kidney Injury Likely recovering ATN following septic shock and prior CRRT. Creatinine 1.7, GFR 32, still anuric with no urine output overnight. Plan: * Dialysis today; continue daily renal panel and strict I&O. * Monitor for signs of improvement in renal function. * Avoid nephrotoxins, renally dose medications. * Continue fluid management, monitor for volume overload. # Metabolic Acidosis ABG shows mild acidosis (pH 7.33, HCO3 26). Plan: * Continue monitoring ABG and electrolytes. * Dialysis will address acidosis if it worsens. # Hypophosphatemia # Hypomagnesemia Phos 3.4, Mg 2.2, K 4.3 stable. Plan: * Replete phosphorus and magnesium as needed. * Monitor electrolytes daily. # Septic Shock MDR E. coli UTI source; on Zosyn. Resolved, continues on broad-spectrum antibiotics (Zosyn). Plan: * Continue antibiotics per ID (Zosyn). * Monitor WBC and hemodynamic parameters. Other problems: #Diverticulitis of large intestine with perforation (s/p exploratory laparotomy, sigmoid colectomy, colostomy, hysterectomy on 05/17) #Postoperative state (post-surgical, day 7) #Leukocytosis #Normocytic anemia #Thrombocytopenia #Lactic acidosis #Hyponatremia (resolved) #Presence of nephrostomy tubes bilaterally #Presence of colostomy #Type 2 diabetes mellitus (controlled, A1C 5.2) #COPD #Endometrial cancer, in remission #Mechanical ventilation dependence Management per ICU team ----- Plan discussed with attending physician Dr. Garcia Jackson MD PGY-1 Internal Medicine Attending Provider Attestation/Addendum Patient seen and examined with resident physician Dr. Jackson. Note reviewed, agree with findings and recommendations. Patient extubated. Minimal urinary output. no improvement in azotemia-Will plan for dialysis today. Patient currently seen on dialysis. Tolerating dialysis without any problems. Sequential ultrafiltration for 3 hours, blood flow 250, ultrafiltration 2-3 L, Epogen 6000, no heparin ordered. Plan of care discussed with the dialysis nurse. Please see dialysis flowsheet for further details.
[2025-05-25 07:59] LABS: Base Excess 0 (-3-3); HCO3 26 mEq/L (20-26); Inspired O2, VO2 Liters 8 L/min; O2 Saturation 98 % (91-98); PCO2 49 mmHg (32.0-48.0); PO2 173 mmHg (83-108); pH, Arterial 7.33 (7.35-7.45)
[2025-05-25 08:00] LABS: Allen Test Not Performed; Puncture Site Site Not Noted
[2025-05-25] MEDS: IPRATROPIUM RT 0.5 MG/ 2.5 ML NEBU INH (08:44)
[2025-05-25] MEDS: HEPARIN SOD INJ 5000 UNIT/ML VIAL SC ×2 (08:52→21:22)
[2025-05-25] MEDS: HYDROCORTISONE SOD SUCC INJ 100 MG 2 ML VIAL 50 MG IV ×2 (08:52→21:21)
[2025-05-25] MEDS: HYDROmorphone INJ 2 MG/ML VIAL 1 MG IVP ×2 (09:02→17:52)
--- NOTE | 2025-05-25 09:21 | XR_ITS ---
EXAMINATION: AP chest single view TECHNIQUE: AP portable semiupright chest single view Date and time: May 25, 2025, 0930 hours, comparison May 25, 2025 0749 hours FINDINGS: Again noted total opacification left hemithorax Port-A-Cath and temporary dialysis catheter tip satisfactory position Mild vascular congestion IMPRESSION: Again noted total opacification left hemithorax, recommend ultrasound left hemithorax follow-up
[2025-05-25] MEDS: EPOETIN ALFA-EPBX INJ 10,000 UNIT/ML VIAL (NON-ESRD) 10000 UNIT IV (09:52)
[2025-05-25] MEDS: ALBUMIN HUMAN-KJDA 25% IVPB 25 GM/100 ML BTL IV (09:53)
--- NOTE | 2025-05-25 10:16 | ESPR_ITS ---
<Statement entered by Kelsey Robles MD - 05/26/25 13:02> TOTAL TIME: 45MINUTES ON DIRECT MEDICAL CARE, MANAGEMENT - COORDINATION AND COUNSELING > 50% OF TOTAL TIME I saw and evaluated the patient. I reviewed the resident?s note and agree with findings and plan as documented in the resident?s note. Left postobstructive atelectasis remains improved after bronchoscopy. Noninvasive positive pressure ventilation every 4 on and off as tolerated due to by lateral lower lobe atelectasis. Avoid sedations at all costs IVC ultrasound plethoric, Doppler of hepatic vein consistent with mild venous hepatic congestion. Patient requires fluid removal on hemodialysis. If unable to tolerate due to hypotension, start pressors after albumin trial. ICU team will take over as primary if the patient requires pressors or or meets ICU criteria otherwise Leukocytosis noted. Pending removal of nephrostomy tubes with stent placements once stable. Lactic acid 0.7 Case discussed with primary team. <Statement entered by Tim Anguiano MD - 05/25/25 14:51> Patient seen and examined at bedside. I discussed and supervised with the accounting intern physician who took care of this patient. I personally saw and examined the patient. I agree with most of the assessment and plan. Patient noted to have severe desaturation down to 77% SpO2 requiring oxygen therapy with oxy mask to 15 LPM. Stat chest x-ray showed whiteout of left lung field, concerning for mucous plug. Attempted noninvasive management utilizing positioning, chest percussion therapy, NG suctioning to trigger cough reflux without improvement. Patient underwent bronchoscopy, found to have very poor cough reflex with thick mucus secretions. Left lower lobe BAL with clearing of mucous plugging, see operative report for further details. Patient placed on high flow nasal cannula for support after bronchoscopy. Follow-up chest x-ray showed clearance of left upper lung field, however left lower lung field remains consolidated, likely atelectasis in setting of poor mobilization and shallow breathing following abdominal surgery. Recommend initiating BiPAP, 10 inspiratory over 8 expiratory pressures, for 4 hours at a time with 4-hour rest in between sessions, as tolerated. Plan of care discussed with attending Dr. Robles. Tim Anguiano MD PGY-2 Documentation for date of: 05/25/25 Subjective Subjective Interval history: 70-year-old female with a history of nephrolithiasis (status post bilateral nephrostomy tubes in September 2024), endometrial cancer, type 2 diabetes mellitus, and chronic anemia, presented with severe abdominal pain, vomiting, fever, and chills. Patient was found to have acute sigmoid diverticulitis complicated by localized perforation and sepsis, necessitating ICU admission for pressors. Patient is post-operative day 8 following an exploratory laparotomy, sigmoid colectomy with end descending colostomy, and hysterectomy. ICU team was consulted by the primary team after the patient experienced an episode of desaturation, with O2 saturation dropping to 77% accompanied by coughing. Patient was promptly placed on an oxymask, and a chest X-ray was obtained, revealing a mucus plug in the left mainstem bronchus with associated atelectasis. Despite attempts at non-invasive nasotracheal suctioning and chest physiotherapy, the patient showed no improvement. Proceeded to bronchoalveolar lavage to clear the mucus plugs, which the patient tolerated well. Exam Vital Signs Temp Pulse Resp BP Pulse Ox O2 Del Method O2 Flow Rate 97.9 F 111 H 20 91/62 96 Nasal Cannula 4 05/25/25 08:19 05/25/25 10:00 05/25/25 08:44 05/25/25 10:00 05/25/25 08:44 05/24/25 12:00 05/25/25 08:44 FiO2 40 05/25/25 08:19 Narrative Exam General: Obese body habitus. Follows commands. Oxymask in place at time of this exam. Head: Normocephalic, atraumatic. Right central line site is clean, dry and intact. Eyes: Pupils equally round and reactive to light. Anicteric. Mouth/Throat: Moist mucous membranes. Heart: Regular rate and rhythm, no murmurs. No JVD. Chemo port on right upper chest. Lungs: Bilateral rhochi and wheezing on auscultation to anterior chest. Non- labored respirations, symmetric chest rise, no use of accessory muscles. Abdomen: Soft and tender to touch, no rebound. Midline incision under bandage with daina, bruising at site. Ostomy LLQ. : No tomlinson, nephrostomy drains with minimal output. Neurologic: Alert and oriented x3, no gross neurological deficit, and patient able to move all 4 extremities. Extremities: Mild edema of hands. 1+ edema of feet. Posterior tibial pulses are 2+ bilaterally. 2+ radial pulse bilaterally. No clubbing or cyanosis. No mottling. Skin: Dry and flakey skin on bilateral lower legs. Objective Labs 05/26/25 05:10 05/26/25 05:10 Labs: Laboratory Results - last 24 hr 05/24/25 05/24/25 05/25/25 05:17 09:47 04:45 WBC 10.8 RBC 2.84 L Hgb 8.0 L Hct 25.1 L MCV 88 MCH 28.2 MCHC 31.9 RDW Std Deviation 58.0 H Plt Count 90 L D Neut % (Auto) 88 H Lymph % (Auto) 4 L Gordon % (Auto) 3 Eos % (Auto) 0 Baso % (Auto) 1 Neut # (Auto) 9.5 H Lymph # (Auto) 0.4 L Gordon # (Auto) 0.3 Eos # (Auto) 0.0 Baso # (Auto) 0.1 Immature Gran # (Auto) 0.48 H Absolute Nucleated RBC 0.05 H Immature Gran % 4 H Nucleated RBC % 1 H Puncture Site ABG pH ABG pCO2 ABG pO2 ABG HCO3 ABG O2 Saturation ABG Base Excess Oxygen Liter Flow Sodium 143 Potassium 4.3 D Chloride 100 Carbon Dioxide 27.4 Anion Gap 16 BUN 19 Creatinine 1.7 H Estim Creat Clear Calc 41.8 L eGFR 32 L BUN/Creatinine Ratio 11 L Glucose 95 Calculated Osmolality 287 Calcium 8.1 L Corrected Calcium 8.3 L Phosphorus 3.4 Magnesium 2.2 Total Bilirubin 0.6 AST < 8 ALT 11 Alkaline Phosphatase 95 Total Protein 5.0 L Albumin 3.7 Globulin 1.3 L Albumin/Globulin Ratio 2.8 H Misc Test Result Platelets confirmed Blood Type O Positive Antibody Screen POSITIVE Antibody Identification Anti-E Blood Bank Wristband ID Yes 05/25/25 07:52 WBC RBC Hgb Hct MCV MCH MCHC RDW Std Deviation Plt Count Neut % (Auto) Lymph % (Auto) Gordon % (Auto) Eos % (Auto) Baso % (Auto) Neut # (Auto) Lymph # (Auto) Gordon # (Auto) Eos # (Auto) Baso # (Auto) Immature Gran # (Auto) Absolute Nucleated RBC Immature Gran % Nucleated RBC % Puncture Site Site Not Noted ABG pH 7.33 L ABG pCO2 49 H ABG pO2 173 H ABG HCO3 26 ABG O2 Saturation 98 ABG Base Excess 0 Oxygen Liter Flow 8 Sodium Potassium Chloride Carbon Dioxide Anion Gap BUN Creatinine Estim Creat Clear Calc eGFR BUN/Creatinine Ratio Glucose Calculated Osmolality Calcium Corrected Calcium Phosphorus Magnesium Total Bilirubin AST ALT Alkaline Phosphatase Total Protein Albumin Globulin Albumin/Globulin Ratio Misc Test Result Blood Type Antibody Screen Antibody Identification Blood Bank Wristband ID ABG Interpretation ABG results: 05/16/25 05/16/25 05/16/25 12:11 18:26 19:18 ABG pH 7.41 ABG pCO2 29 L ABG pO2 86 ABG HCO3 18 L ABG O2 Saturation 96 ABG Base Excess -6 L VBG pH 7.26 L 7.36 VBG pCO2 36 32 L VBG pO2 49 46 VBG Base Excess -10 L -7 L 05/17/25 05/17/25 05/17/25 01:51 01:58 12:35 ABG pH 7.34 L 7.21 L D ABG pCO2 30 L 30 L ABG pO2 92 181 H D ABG HCO3 16 L 12 L ABG O2 Saturation 97 99 H ABG Base Excess -9 L -15 L VBG pH 7.28 L VBG pCO2 37 VBG pO2 60 H VBG Base Excess -9 L 05/17/25 05/17/25 05/18/25 15:12 22:59 04:06 ABG pH 7.17 L* 7.26 L 7.23 L ABG pCO2 32 26 L 32 ABG pO2 343 H D 298 H D 208 H D ABG HCO3 12 L 12 L 13 L ABG O2 Saturation 100 H 100 H 100 H ABG Base Excess -16 L -14 L -13 L VBG pH VBG pCO2 VBG pO2 VBG Base Excess 05/18/25 05/19/25 05/20/25 12:10 07:13 17:49 ABG pH 7.49 H D ABG pCO2 35 ABG pO2 126 H D ABG HCO3 26 ABG O2 Saturation 99 H ABG Base Excess 3 VBG pH 7.23 L 7.57 VBG pCO2 35 L 35 L VBG pO2 173 H D 36 D VBG Base Excess -12 L 10 H 05/21/25 05/22/25 05/25/25 10:08 04:59 07:52 ABG pH 7.45 7.44 7.33 L ABG pCO2 34 32 49 H ABG pO2 70 L D 140 H D 173 H ABG HCO3 24 22 26 ABG O2 Saturation Not Performed. 99 H 98 ABG Base Excess 0 -2 0 VBG pH VBG pCO2 VBG pO2 VBG Base Excess Quality Measures Quality Measures VTE prophylaxis Advance care planning discussed with:: patient Assessment & Plan Assessment Current Active Medications: Generic Name Dose Route Start Last Admin Trade Name Freq PRN Reason Stop Dose Admin Gabapentin 300 mg 05/21/25 21:00 05/24/25 20:16 Gabapentin 300 Mg Capsule PO 06/20/25 20:59 300 mg HS JESSICA Administration Heparin Sodium (Porcine) 2,600 unit 05/23/25 19:07 05/23/25 19:23 Heparin Sod Inj 1000 Unit/Ml Vial 10 Ml INDWELLCAT 06/06/25 19:06 2,600 unit PRN PRN Administration DIALYSIS Heparin Sodium (Porcine) 5,000 unit 05/24/25 09:00 05/25/25 08:52 Heparin Sod Inj 5000 Unit/Ml Vial SC 06/07/25 08:59 5,000 unit Q12HR JESSICA Administration Hydrocortisone Sodium Succinate 50 mg 05/23/25 09:00 05/25/25 08:52 Hydrocortisone Sod Succ Inj 100 Mg 2 Ml Vial IV 06/22/25 08:59 50 mg BID JESSICA Administration Hydromorphone HCl 1 mg 05/23/25 10:12 05/25/25 09:02 Hydromorphone Inj 2 Mg/Ml Vial IVP 05/26/25 11:43 1 mg Q3HR PRN Administration Breakthrough Pain 7-10 Piperacillin/Tazobactam/Dextrose 3.375 gm in 50 mls @ 12.5 mls/hr 05/22/25 22:30 05/25/25 05:24 Zosyn IV 05/28/25 17:59 12.5 mls/hr Q8HR JESSICA Administration Protocol Albumin Human 25 gm in 100 mls @ 100 mls/hr 05/25/25 09:47 05/25/25 09:53 Albuminex 25% Ivpb IV 100 mls/hr PRN PRN Administration DIALYSIS Ipratropium [place] 0.5 mg 05/25/25 07:28 Ipratropium Rt 0.5 Mg/ 2.5 Ml Nebu INH 06/24/25 07:27 Q6HR PRN SHORTNESS OF BREATH Levalbuterol HCl 0.63 mg 05/25/25 07:28 Levalbuterol Rt 0.63 Mg/3 Ml Nebu INH 06/24/25 07:27 Q6HR PRN WHEEZING Melatonin 3 mg 05/21/25 21:00 05/24/25 20:16 Melatonin 3 Mg Tablet PO 06/20/25 20:59 3 mg HS JESSICA Administration Ondansetron HCl 4 mg 05/16/25 18:34 05/17/25 09:51 Ondansetron Inj 2 Mg/Ml Inj 2 Ml IVP 06/15/25 18:33 4 mg Q6H PRN Administration NAUSEA OR VOMITING Protocol Pantoprazole Sodium 40 mg 05/17/25 09:00 05/25/25 08:51 Pantoprazole Inj 40 Mg Vial IVP 06/16/25 08:59 40 mg QDAY JESSICA Administration Pharmacy Consult 1 each 05/16/25 16:37 Pharmacy Renal Dose Adjustment 1 Ea XX 06/15/25 16:36 PRN PRN CONSULT Plan 70-year-old female with history of nephrolithiasis (s/p bilateral nephrostomy tubes Sep 2024), endometrial cancer in remission, T2DM, and chronic anemia presenting with severe abdominal pain, vomiting, fever, and chills, found to have acute sigmoid diverticulitis with localized perforation and sepsis requiring ICU admission. Respiratory #Acute respiratory failure, due to mucous plug Diagnostic Test: - ABG 05/25: pH 7.33, pCO2 49, pO2 173, HCO3 26, O2 sat 98%. - CXR 05/25: left lung mucous plug in the mainstem bronchus with atelectasis. Treatment review (completed) - Chest physiotherapy. - NT suctioning. Treatment plan: - Bronchoscopy performed on 05/25 to clear mucous plugs. - BiPAP with FiO2 40, inspiratory pressure 10 and expiratroy pressure 8. - Continue to monitor respiratory status through oxygen saturation, HR, and assessing ability to clear secretions and protecting airway. - Continue to monitor neurological status. L Neurology #Post-operative pain Treatment Plan: - Gabapentin 300 mg PO HS. - Hydromorphone 1 mg Q3HR PRN breakthrough pain. - Management per primary team. #Chemical sedation (titrated off) Treatment Plan: - Melatonin 3mg PO HS to help prevent ICU delirium. - Management per primary team. Cardiovascular #Septic shock, likely secondary to (resolved) #Perforated sigmoid diverticulitis with feculent peritonitis Treatment Plan: - Continue to taper stress steroid dose - hydrocortisone: 50 mg twice daily (100 mg total) until 05/25, then 25 mg IV Q12H (50 mg total) for 2 days (05/26- 05/27), then 25 mg IV daily for 2 days (05/28-05/29) then stop. Monitor blood pressure, glucose, mental status, and signs of adrenal insufficiency (fatigue, hypotension). - Continue to treat MDR E.coli UTI with Zosyn (05/19-05/28). - Management per primary team. GI, , F/E/N #Perforated sigmoid diverticulitis with feculent peritonitis (post-op day 8) Treatment Plan: - Ondansetron 4mg IV Q6H PRN for nausea. - May use abdominal binder as needed. - Management per primary team. #History of endometrial cancer #Recurrent endometrial cancer Treatment Plan: - Management per primary team. Renal #Primary anion gap metabolic acidosis (resolved) Treatment Plan: - Hemodialysis. - Management per primary team. #Acute kidney injury #Anuria Treatment Plan: - Hemodialysis. - Management per primary team. #Hematuria - Management per primary team. #Obstrutive nephrolithiasis s/p nephrostomy tube - Management per primary team. Heme #Normocytic anemia Treatment Plan: - Peripheral blood smear pending. - Haptoglobin levels pending to evaluate for hemolysis. - Management per primary team. #Thrombocyopenia (improving) - Management per primary team. #Leukocytosis (resolved) Treatment Plan - Continue to treat UTI with Zosyn (05/19-05/28). - Management per primary team. Endo #Noninsulin dependent T2DM Treatment Plan: - Management per primary team. ID #E. Coli urinary tract infection Treatment Plan: - Zosyn dosing per pharmacy for E.coli on urine culture (05/19-05/28). - Management per primary team. Patient plan of care was discussed with the senior resident, Dr. Anguiano, and attending physician, Dr. Robles. Becca Diop, DO Internal Medicine PGY-1
[2025-05-25] MEDS: HEPARIN SOD INJ 1000 UNIT/ML VIAL 10 ML 2600 UNIT INDWELLCAT (12:05)
--- NOTE | 2025-05-25 12:12 | PC.SS ---
Update: Patient participating with dialysis today.
[2025-05-25] MEDS: fentaNYL CIT INJ 50 mCg/ML AMP 2ML 25 MCG IVP (13:18)
[2025-05-25] MEDS: LIDOCAINE JELLY 2% (Urojet) 10 ML TUBE TOP (13:19)
--- NOTE | 2025-05-25 13:24 | XR_ITS ---
EXAMINATION: Images single view TECHNIQUE: AP portable semiupright chest single view Date and time: May 25, 2025, 1331 hours, comparison May 25, 2025 0930 hours INDICATIONS: Hypoxia, total left lung atelectasis, post bronchoscopy today. FINDINGS: Significant partial reaeration of the left lung Atelectasis in the left lower lung zone Enlarged left ventricle Port-A-Cath and dialysis catheter satisfactory position IMPRESSION: Significant reexpansion left lung
[2025-05-25] MEDS: MIDAZOLAM INJ 1 MG/ML VIAL 2 ML IVP (13:29)
[2025-05-25] MEDS: LIDOCAINE HCL 1% 20 ML VIAL 9 ML INFL (13:29)
--- NOTE | 2025-05-25 13:34 | PD.INTPROC ---
PROCEDURES: Procedure Date / Time 05/25/25 1334 Arterial Line Size (Gauge): 20 Bronchoscopy Bronscopy indication(s): removal of secretions Informed consent obtained from: patient Time out done and the following verified: correct patient and procedure Oxygen delivery: supplemental 100% Vocal cords: symmetric equally mobile Trachea: proximal appears normal, mid appears normal and distal appears normal Daniela: sharp in angle RUL & subsegmental branches: mucosa appears normal RML & subsegmental branches: mucosa appears normal RLL & subsegmental branches: mucus plugging ADIN & subsegmental branches: mucus plugging LLL & subsegmental branches: mucus plugging Bronchoalveolar lavage: 60ml LLL BAL with clearance of mucus plugs RLL secretions and plug cleard without saline wash EBL: 0 Patient tolerated procedure: well Complications: No Procedure comment: The bronchoscope was introduced via the left nares without difficulty. 1% topical lidocaine was used to anesthetize the upper airway/vocal cords. The patient had a very poor cough. See remainder of findings above Left lower lobe BAL was submitted The patient will remain in the ICU with every 5 minute monitoring of vital signs for half an hour and if stable every hour for 2 hours.
--- NOTE | 2025-05-25 14:03 | ESPR_ITS ---
<Statement entered by Juan Luis Manzo MD - 05/29/25 08:35> I reviewed above note and agree with findings and plans. I have also personally examined the patient with medicine team and went over assessment and plan with medical team including international guest coordinator and resident physician. <Statement entered by Chadwick Myers MD - 05/25/25 17:40> Overnight near start of shift, patient's oxygen demands increased and she was placed on 10 L oxygen mask. Chest x-ray was positive for left-sided lung whiteout but ABG was largely unremarkable with mild respiratory acidosis noted. Patient was saturating well on 10 L; however, chest PT was ordered to unclog mucous plug which was likely culprit of left sided lung whiteout. Unfortunately chest PT was unsuccessful at which point bronchoscopy was completed by supervisor partial denture department with significant improvement on follow-up chest x-ray. Patient also received dialysis with 1.5 L ultrafiltration; however, continues to be hypotensive with a blood pressure systolic 70s and diastolic in the 50s. Will initiate IV LR bolus 500 cc along with midodrine 10 mg 3 times daily as needed. ICU team aware of the patient's guarded prognosis. Will consult urology and infectious disease regarding treatment of complicated UTI with MDR E. coli UTI and history of nephrostomy tubes which likely need to be exchanged. I have personally seen and examined the patient. I agree with the resident's assessment and plan as documented below. Chadwcik Myers DO PGY-2 Internal Medicine - [facility] Documentation for date of: 05/25/25 Subjective Subjective Interval history: No Overnight events. Labs reviewed and patient examined at the bedside. This morning, patient's oxygen level was desaturating and required 15 L of oxygen through nasal cannula to reach 97% of oxygen saturation. Subsequent chest x-ray revealed total left lung atelectasis perhaps related to mucous plug in the mainstem bronchus. Bronchoscopy has been done to remove the mucus from the patient's left lung. Patient is currently on BiPAP to re-expand her lung. However this afternoon patient had significant discomfort that caused her to become agitated. Patient's BiPAP has transitioned to high flow nasal cannula. Due to soft blood pressure. Patient was given midodrine 10 mg p.o. 3 times daily as needed and one-time IV LR bolus 500 mL. Will continue to monitor. Consulted ID and Urology, for management of her MDR UTI and anuria from her nephrostomy tube. Urology noted managment and procedures, including cystoscopy and bilateral retrograde pyelogram, will be done next week thursday05/31/2025. Patient will need to be NPO after midnight before 05/31. Exam Vital Signs Temp Pulse Resp BP Pulse Ox O2 Del Method O2 Flow Rate 97.8 F 100 20 97/66 99 Nasal Cannula 4 05/25/25 12:22 05/25/25 12:22 05/25/25 12:22 05/25/25 12:22 05/25/25 12:22 05/24/25 12:00 05/25/25 12: FiO2 40 05/25/25 08:19 Constitutional Comments: General: Obese, distressed, frail, elderly, AAO x3, on BiPAP Eye: Normal conjunctiva, no scleral icterus HENT: Normocephalic, atraumatic, hearing intact to conversation at normal volume, moist oral mucosa. Neck: Supple, non-tender, no JVD, no lymphadenopathy Lungs: Non-labored respirations, symmetric chest rise, Clear to auscultate bilaterally, No wheezing, rhonchi, crackles Heart: Peripheral pulses intact bilaterally, Regular Rate and Rhythm. Abdomen: Midline incision under bandage with daina, bruising at site. Ostomy LLQ. Musculoskeletal: Normal range of motion and strength, No cyanosis or edema, No visible joint swelling, nephrostomy drains with minimal output. +1 edema in BLE. Right upper chest chemo port noted. Skin: Skin is warm, dry, no rashes or lesions. Psychiatric: Cooperative, appropriate mood and affect, Awake and alert Neuro: Cranial nerves II-XII grossly intact. Sensations intact to light touch. Objective Labs 05/25/25 04:45 05/25/25 04:45 Labs: Laboratory Results - last 24 hr 05/24/25 05/25/25 05/25/25 05:17 04:45 07:52 WBC 10.8 RBC 2.84 L Hgb 8.0 L Hct 25.1 L MCV 88 MCH 28.2 MCHC 31.9 RDW Std Deviation 58.0 H Plt Count 90 L D Neut % (Auto) 88 H Lymph % (Auto) 4 L [place] % (Auto) 3 Eos % (Auto) 0 Baso % (Auto) 1 Neut # (Auto) 9.5 H Lymph # (Auto) 0.4 L [place] # (Auto) 0.3 Eos # (Auto) 0.0 Baso # (Auto) 0.1 Immature Gran # (Auto) 0.48 H Absolute Nucleated RBC 0.05 H Immature Gran % 4 H Nucleated RBC % 1 H Puncture Site Site Not Noted ABG pH 7.33 L ABG pCO2 49 H ABG pO2 173 H ABG HCO3 26 ABG O2 Saturation 98 ABG Base Excess 0 Oxygen Liter Flow 8 Sodium 143 Potassium 4.3 D Chloride 100 Carbon Dioxide 27.4 Anion Gap 16 BUN 19 Creatinine 1.7 H Estim Creat Clear Calc 41.8 L eGFR 32 L BUN/Creatinine Ratio 11 L Glucose 95 Calculated Osmolality 287 Calcium 8.1 L Corrected Calcium 8.3 L Phosphorus 3.4 Magnesium 2.2 Total Bilirubin 0.6 AST < 8 ALT 11 Alkaline Phosphatase 95 Total Protein 5.0 L Albumin 3.7 Globulin 1.3 L Albumin/Globulin Ratio 2.8 H Misc Test Result Platelets confirmed ABG Interpretation ABG results: 05/16/25 05/16/25 05/16/25 12:11 18:26 19:18 ABG pH 7.41 ABG pCO2 29 L ABG pO2 86 ABG HCO3 18 L ABG O2 Saturation 96 ABG Base Excess -6 L VBG pH 7.26 L 7.36 VBG pCO2 36 32 L VBG pO2 49 46 VBG Base Excess -10 L -7 L 05/17/25 05/17/25 05/17/25 01:51 01:58 12:35 ABG pH 7.34 L 7.21 L D ABG pCO2 30 L 30 L ABG pO2 92 181 H D ABG HCO3 16 L 12 L ABG O2 Saturation 97 99 H ABG Base Excess -9 L -15 L VBG pH 7.28 L VBG pCO2 37 VBG pO2 60 H VBG Base Excess -9 L 05/17/25 05/17/25 05/18/25 15:12 22:59 04:06 ABG pH 7.17 L* 7.26 L 7.23 L ABG pCO2 32 26 L 32 ABG pO2 343 H D 298 H D 208 H D ABG HCO3 12 L 12 L 13 L ABG O2 Saturation 100 H 100 H 100 H ABG Base Excess -16 L -14 L -13 L VBG pH VBG pCO2 VBG pO2 VBG Base Excess 05/18/25 05/19/25 05/20/25 12:10 07:13 17:49 ABG pH 7.49 H D ABG pCO2 35 ABG pO2 126 H D ABG HCO3 26 ABG O2 Saturation 99 H ABG Base Excess 3 VBG pH 7.23 L 7.57 VBG pCO2 35 L 35 L VBG pO2 173 H D 36 D VBG Base Excess -12 L 10 H 05/21/25 05/22/25 05/25/25 10:08 04:59 07:52 ABG pH 7.45 7.44 7.33 L ABG pCO2 34 32 49 H ABG pO2 70 L D 140 H D 173 H ABG HCO3 24 22 26 ABG O2 Saturation Not Performed. 99 H 98 ABG Base Excess 0 -2 0 VBG pH VBG pCO2 VBG pO2 VBG Base Excess Quality Measures Quality Measures VTE prophylaxis Advance care planning discussed with:: patient and other Assessment & Plan Assessment Current Active Medications: Generic Name Dose Route Start Last Admin Trade Name Freq PRN Reason Stop Dose Admin Gabapentin 300 mg 05/21/25 21:00 05/24/25 20:16 Gabapentin 300 Mg Capsule PO 06/20/25 20:59 300 mg HS JESSICA Administration Heparin Sodium (Porcine) 2,600 unit 05/23/25 19:07 05/25/25 12:05 Heparin Sod Inj 1000 Unit/Ml Vial 10 Ml INDWELLCAT 06/06/25 19:06 2,600 unit PRN PRN Administration DIALYSIS Heparin Sodium (Porcine) 5,000 unit 05/24/25 09:00 05/25/25 08:52 Heparin Sod Inj 5000 Unit/Ml Vial SC 06/07/25 08:59 5,000 unit Q12HR JESSICA Administration Hydrocortisone Sodium Succinate 50 mg 05/23/25 09:00 05/25/25 08:52 Hydrocortisone Sod Succ Inj 100 Mg 2 Ml Vial IV 06/22/25 08:59 50 mg BID JESSICA Administration Hydromorphone HCl 1 mg 05/23/25 10:12 05/25/25 09:02 Hydromorphone Inj 2 Mg/Ml Vial IVP 05/26/25 11:43 1 mg Q3HR PRN Administration Breakthrough Pain 7-10 Piperacillin/Tazobactam/Dextrose 3.375 gm in 50 mls @ 12.5 mls/hr 05/22/25 22:30 05/25/25 05:24 Zosyn IV 05/28/25 17:59 12.5 mls/hr Q8HR JESSICA Administration Protocol Albumin Human 25 gm in 100 mls @ 100 mls/hr 05/25/25 09:47 05/25/25 10:53 Albuminex 25% Ivpb IV Infused PRN PRN Infusion DIALYSIS Ipratropium [place] 0.5 mg 05/25/25 07:28 Ipratropium Rt 0.5 Mg/ 2.5 Ml Nebu INH 06/24/25 07:27 Q6HR PRN SHORTNESS OF BREATH Levalbuterol HCl 0.63 mg 05/25/25 07:28 Levalbuterol Rt 0.63 Mg/3 Ml Nebu INH 06/24/25 07:27 Q6HR PRN WHEEZING Melatonin 3 mg 05/21/25 21:00 05/24/25 20:16 Melatonin 3 Mg Tablet PO 06/20/25 20:59 3 mg HS JESSICA Administration Ondansetron HCl 4 mg 05/16/25 18:34 05/17/25 09:51 Ondansetron Inj 2 Mg/Ml Inj 2 Ml IVP 06/15/25 18:33 4 mg Q6H PRN Administration NAUSEA OR VOMITING Protocol Pantoprazole Sodium 40 mg 05/17/25 09:00 05/25/25 08:51 Pantoprazole Inj 40 Mg Vial IVP 06/16/25 08:59 40 mg QDAY JESSICA Administration Pharmacy Consult 1 each 05/16/25 16:37 Pharmacy Renal Dose Adjustment 1 Ea XX 06/15/25 16:36 PRN PRN CONSULT Plan 70-year-old female with history of nephrolithiasis (s/p bilateral nephrostomy tubes Sep 2024), endometrial cancer in remission, T2DM, and chronic anemia presenting with severe abdominal pain, vomiting, fever, and chills, found to have acute sigmoid diverticulitis with localized perforation and sepsis requiring ICU admission on 05/16/2025. Patient downgraded to tele for monitoring patient's on 05/24/2025 condition #Acute Hypoxic Respiratory Failure 2/2 Mucus plug -In morning of 05/25, patient's oxygen level was desaturating and required 15 L of oxygen through nasal cannula to reach 97% of oxygen saturation. -CXR (05/25/2025): Findings most consistent with total left lung atelectasis perhaps related to mucous plug in the mainstem bronchus. Recommend ultrasound left hemithorax to confirm atelectasis and exclude left pleural fluid -Patient received bronchoscopy on 05/25 to remove mucus from her left lung -After Bronchoscopy, repeat CXR (05/25/2025): Significant partial reaeration of the left lung, Atelectasis in the left lower lung zone, Enlarged left ventricle, Port-A-Cath and dialysis catheter satisfactory position Plan: -Patient was placed on BiPAP to re-expand her lung. However this afternoon patient had significant discomfort that caused her to become agitated. Patient's BiPAP has transitioned to high flow nasal cannula. -Due to soft blood pressure. Patient was given midodrine 10 mg p.o. 3 times daily as needed and one-time IV LR bolus 500 mL. Will continue to monitor. #Septic shock - (resolved) #2/2 Perforated sigmoid diverticulitis with feculent peritonitis (post-op day 7) -On admission, 3/4 SIRS criteria on admission: BP 84/58 T 101.1F, RR 31, WBC 16.3. lactic acid level of 4.8 , Troponin < 0.002. -qSOFA score of 2 (RR 31 and SBP 84). -CT abd/pelvis: diverticulitis of large intestine with perforation. -WARREN due to sepsis: baseline Cr 0.8-1.3. Cr 2.3 on this admission. -Echo 05/18: Normal LV size, wall thickness. Estimated LVEF at 60%. RV is normal in size and systolic function. Mild mitral regurgitation. Mild tricuspid regurgitation. -Urine culture- MDR Ecoli, Blood culture - no growth. -S/p exploratory laparotomy, sigmoid colectomy with end descending colostomy and hysterectomy on 05/17. -CT abd/pelvis: acute sigmoid diverticulitis with localized rupture of diverticula and mild pelvic pneumoperitoneum. -Surgery findings: inflamed and thickened sigmoid with large perforation and feculent peritonitis. Inflamed and necrotic appearing uterus. Very thin anterior abdominal fascia with evidence of multiple mesh placements from prior operations. -Pathology report 05/16: uterus - endometroid carcinoma with extensive necrosis with negative surgical margins. Sigmoid colon - extensive diverticulosis with perforation and inflammation. Plan: -Continue to taper stress steroid dose - hydrocortisone: 50 mg twice daily (100 mg total) until 05/25, then 25 mg IV Q12H (50 mg total) for 2 days (05/26- 05/27), then 25 mg IV daily for 2 days (05/28-05/29) then stop. Monitor blood pressure, glucose, mental status, and signs of adrenal insufficiency (fatigue, hypotension) -Continue to treat MDR E.coli UTI with Zosyn (05/19-05/28). -Ondansetron 4mg IV Q6H PRN for nausea. -Monitor colostomy bag for activity. -Start liquid diet and progress to solids as tolerated. -May use abdominal binder as needed. -Ambulate out of bed twice daily -Gabapentin 300 mg PO HS (can also help prevent ICU delirium). -Hydromorphone 1 mg Q3HR PRN breakthrough pain. #Acute kidney injury - Resolving #Anuria #Hx of nephrolithiasis, s/p bilateral nephrostomy tubes in September 2024 #Hematuria -WARREN likely multifactorial; Hypoperfusion from sepsis vs Obstruction from nephrostomy tube vs ATN after septic shock -Cr 2.3 on admission. Baseline Cr: 0.8-1.3. -UA: RBC 54. -CT abd/pelvis: Bilateral nephrostomy ureteral catheter. Plan: -Pending dialysis 05/25 -Avoid nephrotoxins. -Renally dose meds as appropriate. -Strict I&Os, monitor urine output closely. -Maintain MAP >65 mmHg for renal perfusion. #UTI -Urine culture 05/16 showed E. Coli. -IV Zosyn (05/19-05/28). #Normocytic anemia -2 unit pRBC transfusion on 05/17 after surgery and 1 unit pRBC transfusion on 05/21 for Hgb 6.7 Plan: -Monitor H&H. -Transfusing for Hgb <7 or symptomatic. -Peripheral blood smear pending. -Haptoglobin levels pending to evaluate for hemolysis #Thrombocyopenia -Resolving -Plt 602 on admission, Plt 419 on 05/17, 106 on 05/18, Plt 11 05/19, Plt 8 05/20, Plt 39 post platelet transfusion 05/20. Plan: -Heparin 5000 sc q12hr restarted 05/24 for DVT ppx. - Monitor platelets, transfuse to keep > 10k, >20k for invasive procedures. #Leukocytosis - Resolving -Continue IV Zoysn #Noninsulin dependent T2DM -Hemoglobin A1c on 05/12/2025 was 5.2. and Blood glucose 154 on admission. Plan: -Monitor glucose level -Possible SSI based on patient's glucose level #Hx of COPD -Monitor O2 saturation and respiratory effort. -No steroids or bronchodilators unless COPD exacerbation evident. #History of endometrial cancer #Recurrent endometrial cancer -F/u outpt in [place]. #Primary anion gap metabolic acidosis - Resolved Disposition: Tele for obs Diet: liquid diet GI prophylaxis: heparin 5000 SC. DVT prophylaxis: Pantoprazole 40 mg IV daily. Code:FULL CODE Assessment and plan discussed with my attending physician Dr. Jovany Barba (PGY-1) - Internal medicine resident
[2025-05-25] MEDS: RINGERS LACTATED 500 ML 500 ML 999 ML IV (15:09)
[2025-05-25] MEDS: MIDODRINE 5 MG TABLET 10 MG PO (15:14)
--- NOTE | 2025-05-25 16:05 | PC.SS ---
[employer] confirmed with patient that surrogate medical decision maker is now son, Kwadwo Kiser .
--- NOTE | 2025-05-25 19:00 | XR_ITS ---
EXAMINATION: AP chest single view TECHNIQUE: AP portable semiupright chest single view Date and time: May 25, 2025, 1853 hours, comparison May 25, 2025 1331 hours INDICATIONS: Difficulty breathing, history total left lung atelectasis on earlier films prebronchoscopy FINDINGS: Adequate expansion left lung Moderate enlargement cardiac contour with mild heart failure including pulmonary vascular congestion and basilar edema Possible left pleural effusion Port-A-Cath and right internal jugular temporary dialysis catheter tips SVC IMPRESSION: Better expansion left lung Mild heart failure
[2025-05-25] MEDS: GABAPENTIN 300 MG CAPSULE PO (21:21)
[2025-05-25] MEDS: MELATONIN 3 MG TABLET PO (21:21)
--- NOTE | 2025-05-25 23:51 | PC.RT ---
pt requested bipap off taken off at 23:43 place on 2l nc. tolerating well
[2025-05-26] VITALS (99 sets, daily range): BP systolic 68–129; BP diastolic 44–85; PULSE 57–130; RESP 6–30; TEMP 36.1–37; O2SAT 73–100; BMI 33.3
[2025-05-26 00:29] LABS: Base Excess -3 (-3-3); HCO3 26 mEq/L (20-26); Inspired Oxygen, FIO2 100 %; O2 Saturation 100 % (91-98); PCO2 67 mmHg (32.0-48.0); PO2 180 mmHg (83-108); pH, Arterial 7.20 (7.35-7.45)
[2025-05-26 00:35] LABS: Allen Test Performed/OK; Puncture Site Right Radial
--- NOTE | 2025-05-26 00:45 | PC.RT ---
DR. pederson aware of abg results per keep pt on 15/01, [id number]
--- NOTE | 2025-05-26 00:46 | PC.RT ---
fio2 titrated to 45% per abg results nurse made aware.
[2025-05-26 06:11] LABS: Basophils # (Auto) 0.1 Thou/mm3 (0.0-0.2); Basophils % (Auto) 1 % (0-2.5); Eosinophils # (Auto) 0.0 Thou/mm3 (0.0-0.5); Eosinophils % (Auto) 0 % (0-10); Hematocrit 27.5 % (36.0-46.0); Immature Granulocytes Auto 0.73 Thou/mm3 (0.00-0.00); Lymphocytes # (Auto) 0.7 Thou/mm3 (1.0-4.8); Lymphocytes % (Auto) 4 % (10-50); Mean Corpuscular HGB Conc 30.9 g/dl (31.0-37.0); Mean Corpuscular Hemoglobin 28.1 pg (25.0-35.0); Mean Corpuscular Volume 91 fL (80-100); Monocytes # (Auto) 0.4 Thou/mm3 (0.0-0.8); Monocytes % (Auto) 3 % (0-12); Neutrophils # (Auto) 13.6 Thou/mm3 (1.8-7.7); Neutrophils % (Auto) 88 % (37-80); Nucleated Red Blood Cell # 0.10 Thou/mm3 (0.00-0.00); Nucleated Red Blood Cell % 1 /100 WBC (0); Platelet Count 147 Thou/mm3 (140-440); RDW Standard Deviation 59.4 fL (36.4-46.3); Red Blood Count 3.03 Miln/mm3 (4.00-5.20); White Blood Count 15.5 Thou/mm3 (3.6-11.0)
[2025-05-26 06:12] LABS: Hemoglobin 8.5 g/dL (12.0-16.0)
[2025-05-26] MEDS: PIPER/TAZO 3.375 GM PREMIX 3.375 GM/50 ML BAG IV ×3 (06:25→21:52)
[2025-05-26 06:37] LABS: Alanine Aminotransferase 11 U/L (10-49); Albumin, Serum 3.8 gm/dL (3.4-4.8); Albumin/Globulin Ratio 2.4 (1.2-2.2); Alkaline Phosphatase 128 U/L (46-116); Anion Gap 13 (7-16); Aspartate Amino Transferase 16 U/L (0-34); BUN/Creatinine Ratio 11 Ratio (12-20); Bilirubin,Total 0.5 mg/dL (0.3-1.2); Blood Urea Nitrogen 25 mg/dL (9-23); Calcium 8.7 mg/dL (8.3-10.6); Calcium (Corrected) 8.9 mg/dL (8.5-10.1); Carbon Dioxide 27.7 mMol/L (20.0-31.0); Chloride 101 mMol/L (98-107); Creatinine (Component) 2.2 mg/dL (0.6-1.3); Estimated Creatinine Clearance 23.1 mL/min (>60); Globulin 1.6 gm/dL (2.3-3.5); Glucose 86 mg/dL (74-106); Magnesium 2.2 mg/dL (1.6-2.6); Osmolality,Calculated 286 (275-295); Phosphorous 4.3 mg/dL (2.4-5.1); Potassium 4.0 mMol/L (3.4-5.1); Sodium 142 mMol/L (136-145); Total Protein 5.4 gm/dL (5.7-8.2); eGFR 24 See Note
[2025-05-26 07:43] LABS: Allen Test Performed/OK; Base Excess 0 (-3-3); HCO3 27 mEq/L (20-26); Inspired Oxygen, FIO2 70 %; O2 Saturation 99 % (91-98); PCO2 51 mmHg (32.0-48.0); PO2 260 mmHg (83-108); Puncture Site Right Radial; pH, Arterial 7.32 (7.35-7.45)
[2025-05-26] MEDS: HEPARIN SOD INJ 5000 UNIT/ML VIAL SC ×2 (08:06→21:51)
[2025-05-26] MEDS: HYDROCORTISONE SOD SUCC INJ 100 MG 2 ML VIAL 50 MG IV (08:06)
[2025-05-26] MEDS: RINGERS LACTATED 500 ML 500 ML 999 ML IV (08:08)
--- NOTE | 2025-05-26 09:00 | XR_ITS ---
EXAMINATION: AP chest single view TECHNIQUE: AP portable semiupright chest single view Date and time: May 26, 2025, 0711 hours, comparison May 25, 2025 INDICATIONS: Difficulty breathing this week. FINDINGS: Bibasilar pneumonia Mild prominence cardiac contour Port-A-Cath and dialysis catheter satisfactory position No pulmonary edema IMPRESSION: Bibasilar pneumonia
--- NOTE | 2025-05-26 09:24 | XR_ITS ---
Examination: Retroperitoneal ultrasound, complete Technique: Multiple high resolution grayscale images of the retroperitoneum obtained, including kidneys and bladder. Exam date and time: May 26, 2025, 10:00 a.m. INDICATIONS: Urinary tract infections with nephrostomy history FINDINGS: Right kidney 8.8 cm renal cortex 2.0 cm Left kidney 10.0 cm renal cortex 1.5 cm Multiple left renal calculi, the largest 6 mm Moderate scar formation No hydronephrosis IMPRESSION: Small kidneys with bilateral renal cortical thinning Left renal calculi, the largest 6 mm No hydronephrosis
--- NOTE | 2025-05-26 09:32 | ESPR_ITS ---
Subjective Subjective Interval history: asked to see by primary team in icu. bc neg. urine with different germs. hx of nephrostomy change in october noted. renal u/s pending Exam Vital Signs Temp Pulse Resp BP Pulse Ox O2 Del Method O2 Flow Rate 98.6 F 83 23 H 90/55 L 100 BiPAP 2 05/26/25 08:00 05/26/25 09:00 05/26/25 09:00 05/26/25 09:00 05/26/25 09:00 05/26/25 08:00 05/25/25 21:26 FiO2 100 05/26/25 06:39 Narrative Exam in icu. may be done with abx soon but have no data on abd findings and no renal u/s Objective - Internal Medicine Labs 05/26/25 05:10 05/26/25 05:10 Labs: Laboratory Results - last 24 hr 05/26/25 05/26/25 05/26/25 00:20 05:10 07:28 WBC 15.5 H D RBC 3.03 L Hgb 8.5 L Hct 27.5 L MCV 91 MCH 28.1 MCHC 30.9 L RDW Std Deviation 59.4 H Plt Count 147 D Neut % (Auto) 88 H Lymph % (Auto) 4 L [place] % (Auto) 3 Eos % (Auto) 0 Baso % (Auto) 1 Neut # (Auto) 13.6 H Lymph # (Auto) 0.7 L [place] # (Auto) 0.4 Eos # (Auto) 0.0 Baso # (Auto) 0.1 Immature Gran # (Auto) 0.73 H Absolute Nucleated RBC 0.10 H Immature Gran % 5 H Nucleated RBC % 1 H Puncture Site Right Radial Right Radial ABG pH 7.20 L D 7.32 L D ABG pCO2 67 H D 51 H D ABG pO2 180 H 260 H D ABG HCO3 26 27 H ABG O2 Saturation 100 H 99 H ABG Base Excess -3 0 FiO2 100 70 Sodium 142 Potassium 4.0 Chloride 101 Carbon Dioxide 27.7 Anion Gap 13 BUN 25 H Creatinine 2.2 H D Estim Creat Clear Calc 23.1 L eGFR 24 L BUN/Creatinine Ratio 11 L Glucose 86 Calculated Osmolality 286 Calcium 8.7 Corrected Calcium 8.9 Phosphorus 4.3 Magnesium 2.2 Total Bilirubin 0.5 AST 16 ALT 11 Alkaline Phosphatase 128 H D Total Protein 5.4 L Albumin 3.8 Globulin 1.6 L Albumin/Globulin Ratio 2.4 H ABG Interpretation ABG results: 05/16/25 05/16/25 05/16/25 12:11 18:26 19:18 ABG pH 7.41 ABG pCO2 29 L ABG pO2 86 ABG HCO3 18 L ABG O2 Saturation 96 ABG Base Excess -6 L VBG pH 7.26 L 7.36 VBG pCO2 36 32 L VBG pO2 49 46 VBG Base Excess -10 L -7 L 05/17/25 05/17/25 05/17/25 01:51 01:58 12:35 ABG pH 7.34 L 7.21 L D ABG pCO2 30 L 30 L ABG pO2 92 181 H D ABG HCO3 16 L 12 L ABG O2 Saturation 97 99 H ABG Base Excess -9 L -15 L VBG pH 7.28 L VBG pCO2 37 VBG pO2 60 H VBG Base Excess -9 L 05/17/25 05/17/25 05/18/25 15:12 22:59 04:06 ABG pH 7.17 L* 7.26 L 7.23 L ABG pCO2 32 26 L 32 ABG pO2 343 H D 298 H D 208 H D ABG HCO3 12 L 12 L 13 L ABG O2 Saturation 100 H 100 H 100 H ABG Base Excess -16 L -14 L -13 L VBG pH VBG pCO2 VBG pO2 VBG Base Excess 05/18/25 05/19/25 05/20/25 12:10 07:13 17:49 ABG pH 7.49 H D ABG pCO2 35 ABG pO2 126 H D ABG HCO3 26 ABG O2 Saturation 99 H ABG Base Excess 3 VBG pH 7.23 L 7.57 VBG pCO2 35 L 35 L VBG pO2 173 H D 36 D VBG Base Excess -12 L 10 H 05/21/25 05/22/25 05/25/25 10:08 04:59 07:52 ABG pH 7.45 7.44 7.33 L ABG pCO2 34 32 49 H ABG pO2 70 L D 140 H D 173 H ABG HCO3 24 22 26 ABG O2 Saturation Not Performed. 99 H 98 ABG Base Excess 0 -2 0 VBG pH VBG pCO2 VBG pO2 VBG Base Excess 05/26/25 05/26/25 00:20 07:28 ABG pH 7.20 L D 7.32 L D ABG pCO2 67 H D 51 H D ABG pO2 180 H 260 H D ABG HCO3 26 27 H ABG O2 Saturation 100 H 99 H ABG Base Excess -3 0 VBG pH VBG pCO2 VBG pO2 VBG Base Excess Assessment & Plan A&P Narrative uti vs asb hx of obstructive uropathy with prior nephrostomy drainage endometrial ca hx with possible pneumonia with resp failureno bipap check u/s. will look at po abx or ceassation on thursday if taking po as pt here for a week already. ok to leave on zosyn for now and adjust for ckd as creat is heading back to prior baseline usual rx for most infections is 7d so we are there in all likelihood use of bipap not a good prognostic finding. abx may not help much if this is all her [place] Time Spent With Patient Time: Total time spent is greater than 50% in coordination of care (as documented) at patient's floor/unit and/or counseling patient:
--- NOTE | 2025-05-26 10:05 | ESPR_ITS ---
Documentation for date of: 05/26/25 Subjective Subjective Interval history: Reason for consult: Oliguria/Anuria - WARREN in ICU patient post-septic shock and exploratory lap History of present illness: 70-year-old female with a history of nephrolithiasis (s/p bilateral nephrostomy tubes placed Sep 2024), endometrial cancer in remission, type 2 diabetes mellitus, chronic anemia, and COPD, admitted with perforated sigmoid diverticulitis and feculent peritonitis. She underwent exploratory laparotomy, sigmoid colectomy with end descending colostomy, and hysterectomy on 05/17. Nephrology was re-consulted today for no urine output. Overnight urine output was 50 cc total, despite adequate fluid resuscitation and pressor support (on norepinephrine and vasopressin). Patient remains in the ICU, intubated and sedated on propofol/fentanyl, receiving broad-spectrum antibiotics (ciprofloxacin + metronidazole). 05/18/2025: Patient seen in ICU during morning rounds. Intubated, sedated, on vasopressor support. No urine output noted from nephrostomy tubes or Bal. Nursing reports total 50 cc output overnight. No new fevers reported. BP 112/57 mmHg, HR 82. Labs: WBC 18.6, Hgb 10.4, Hct 31.6, Plt 106 (yesterday 419), Na 136, K 5.4, Cl 108, CO2 13.4, BUN 40, Cr 2.5 (GFR 20), Ca 8.8, Phos 6.0, Mg 2.1, Albumin 2.7, Alk Phos 176, Lactic acid 3.0->3.2. ABG: pH 7.30, pCO2 32, HCO3 13. 05/19/2025: Patient currently seen in ICU. On CRRT. On ventilator. Patient more alert and awake. No urine output from nephrostomy tubes or Bal. She had a sigmoid resection and colostomy with minimal stool. Labs, medications reviewed. Will continue with CRRT for next [address] Coker who is at bedside. 05/21/2025: Patient seen today in the ICU. She remains intubated, sedated, and critically ill. No significant urine output noted overnight; nephrostomy tubes remain with minimal drainage. Blood pressure stable on low-dose pressor support. No plans for [employer] today, will re-evaluate tomorrow based on hemodynamics, urine output, and lab trends. Labs: WBC 7.4, Hgb 6.8, Hct 20.6, Plt 39, Na 130, K 4.4, Cl 99, CO2 22.7, Cr 0.7 (GFR >60), Ca 8.9, Phos 2.7, Mg 1.7. ABG: pH 7.45, pCO2 34, HCO3 24. No acute respiratory distress noted; acidosis resolved. 05/22/2025: Patient seen today in the ICU. Still intubated and sedated, overall condition unchanged from yesterday. No urine output overnight; bilateral nephrostomy tubes with minimal drainage (~20 cc total). No dialysis planned for today. Will trial Bumex 2 mg IV twice daily with albumin 25 g IV twice daily to assess for diuretic responsiveness. Will re-evaluate tomorrow for potential dialysis depending on output and lab trends. BP 99/61, HR 65. Labs: WBC 7.0, Hgb 8.5, Hct 26, Plt 30, Na 138, K 4.4, Cl 99, CO2 20, BUN 13, Cr 1.3, Ca 8.7, Phos 2.1, Mg 1.8. 05/23/2025: Patient seen today in ICU. She remains intubated and sedated, currently being placed on pressure support trial to evaluate for possible extubation. She is off pressors. Tube feeds restarted yesterday and are being tolerated. No urine output overnight; nephrostomy tubes remain with minimal to no drainage. Renal function slightly worsened with Cr 1.7 (GFR 32). Considering dialysis today depending on overall fluid balance and metabolic trends. BP 103/68, HR 67. Labs: WBC 6.2, Hgb 7.6, Hct 22.8, Plt 37, Na 138, K 3.8, Cl 98, CO2 19, BUN 20, Cr 1.7 (GFR 32), Ca 8.8, Phos 2.3, Mg 1.9. 05/24/2025: Patient extubated today and more awake; follows commands well. Still no urine output overnight. Bilateral nephrostomy tubes flushed. Bumex will be discontinued today as it?s no longer helping, and dialysis will continue tomorrow. The patient tolerated dialysis well yesterday. BP 190/55, HR 89. Labs: WBC 8.9, Hgb 7.9, Hct 24.7, Plt 60, Na 141, K 3.8, Cl 99, CO2 25.9, BUN 14, Cr 1.4 (GFR 40), Ca 8.4, Phos 1.7, Mg 2.3. 05/25/2025: Seen today in the ICU. Patient is sitting up and following commands. Right leg more edematous than usual. No urine output overnight; nephrostomy tubes flushed with 80 cc of output. Dialysis ongoing today. Patient has been downgraded from ICU to primary team but remains in the ICU for monitoring. BP 82/64, HR 119. Labs: WBC 8.9, Hgb 7.9, Hct 25.1, Plt 90, Na 143, K 4.3, Cl 100, CO2 27.4, BUN 19, Cr 1.7 (GFR 32), Ca 8.8, Phos 3.4, Mg 2.2, Albumin 3.7. ABG: pH 7.33, pCO2 49, PaO2 173, HCO3 26. CXR: Impression: Total left lung atelectasis likely due to mucous plug; recommend ultrasound to confirm and exclude left pleural fluid. 05/26/2025: Patient seen today, no acute overnight events. She underwent bronchoscopy yesterday to clear mucus from the lung. Blood pressure remains soft, and she was started on Midodrine 10 mg TID for support. She remains anuric, and both nephrostomy tubes noted to be leaking; plan to remove and replace nephrostomy tubes. No dialysis planned for today; will reassess tomorrow based on labs and urine output. Patient currently on BiPAP. BP 90/55, HR 83. Labs: WBC 15.5, Hgb 8.5, Hct 27.5, Plt 147, Na 142, K 4.0, Cl 101, CO2 22.7, BUN 25, Cr 2.2 (up from 1.7), GFR 24, Ca 8.9, Phos 4.3, Mg 2.2, Albumin 3.8. ABG: pH 7.32, pCO2 51, HCO3 27. Imaging: CXR: Bibasilar pneumonia. Exam Vital Signs Temp Pulse Resp BP Pulse Ox O2 Del Method O2 Flow Rate 98.6 F 83 23 H 90/55 L 100 BiPAP 2 05/26/25 08:00 05/26/25 09:00 05/26/25 09:00 05/26/25 09:00 05/26/25 09:00 05/26/25 08:00 05/25/25 21:26 FiO2 100 05/26/25 06:39 Narrative Exam General: Awake, alert, on BiPAP. CV: Regular rate and rhythm, no murmurs, no JVD. Resp: On BiPAP, equal bilateral air entry, faint crackles, difficult to appreciate due to BiPAP. Abdomen: Soft, post-op dressing clean/dry/intact, colostomy with output. : Nephrostomy tubes leaking; no urine output. Extremities: Mild bilateral edema. Neuro: Awake, following commands appropriately. Objective Labs 05/28/25 05:20 05/28/25 05:20 Labs: Laboratory Results - last 24 hr 05/26/25 05/26/25 05/26/25 00:20 05:10 07:28 WBC 15.5 H D RBC 3.03 L Hgb 8.5 L Hct 27.5 L MCV 91 MCH 28.1 MCHC 30.9 L RDW Std Deviation 59.4 H Plt Count 147 D Neut % (Auto) 88 H Lymph % (Auto) 4 L Ada % (Auto) 3 Eos % (Auto) 0 Baso % (Auto) 1 Neut # (Auto) 13.6 H Lymph # (Auto) 0.7 L Ada # (Auto) 0.4 Eos # (Auto) 0.0 Baso # (Auto) 0.1 Immature Gran # (Auto) 0.73 H Absolute Nucleated RBC 0.10 H Immature Gran % 5 H Nucleated RBC % 1 H Puncture Site Right Radial Right Radial ABG pH 7.20 L D 7.32 L D ABG pCO2 67 H D 51 H D ABG pO2 180 H 260 H D ABG HCO3 26 27 H ABG O2 Saturation 100 H 99 H ABG Base Excess -3 0 FiO2 100 70 Sodium 142 Potassium 4.0 Chloride 101 Carbon Dioxide 27.7 Anion Gap 13 BUN 25 H Creatinine 2.2 H D Estim Creat Clear Calc 23.1 L eGFR 24 L BUN/Creatinine Ratio 11 L Glucose 86 Calculated Osmolality 286 Calcium 8.7 Corrected Calcium 8.9 Phosphorus 4.3 Magnesium 2.2 Total Bilirubin 0.5 AST 16 ALT 11 Alkaline Phosphatase 128 H D Total Protein 5.4 L Albumin 3.8 Globulin 1.6 L Albumin/Globulin Ratio 2.4 H ABG Interpretation ABG results: 05/16/25 05/16/25 05/16/25 12:11 18:26 19:18 ABG pH 7.41 ABG pCO2 29 L ABG pO2 86 ABG HCO3 18 L ABG O2 Saturation 96 ABG Base Excess -6 L VBG pH 7.26 L 7.36 VBG pCO2 36 32 L VBG pO2 49 46 VBG Base Excess -10 L -7 L 05/17/25 05/17/25 05/17/25 01:51 01:58 12:35 ABG pH 7.34 L 7.21 L D ABG pCO2 30 L 30 L ABG pO2 92 181 H D ABG HCO3 16 L 12 L ABG O2 Saturation 97 99 H ABG Base Excess -9 L -15 L VBG pH 7.28 L VBG pCO2 37 VBG pO2 60 H VBG Base Excess -9 L 05/17/25 05/17/25 05/18/25 15:12 22:59 04:06 ABG pH 7.17 L* 7.26 L 7.23 L ABG pCO2 32 26 L 32 ABG pO2 343 H D 298 H D 208 H D ABG HCO3 12 L 12 L 13 L ABG O2 Saturation 100 H 100 H 100 H ABG Base Excess -16 L -14 L -13 L VBG pH VBG pCO2 VBG pO2 VBG Base Excess 05/18/25 05/19/25 05/20/25 12:10 07:13 17:49 ABG pH 7.49 H D ABG pCO2 35 ABG pO2 126 H D ABG HCO3 26 ABG O2 Saturation 99 H ABG Base Excess 3 VBG pH 7.23 L 7.57 VBG pCO2 35 L 35 L VBG pO2 173 H D 36 D VBG Base Excess -12 L 10 H 05/21/25 05/22/25 05/25/25 10:08 04:59 07:52 ABG pH 7.45 7.44 7.33 L ABG pCO2 34 32 49 H ABG pO2 70 L D 140 H D 173 H ABG HCO3 24 22 26 ABG O2 Saturation Not Performed. 99 H 98 ABG Base Excess 0 -2 0 VBG pH VBG pCO2 VBG pO2 VBG Base Excess 05/26/25 05/26/25 00:20 07:28 ABG pH 7.20 L D 7.32 L D ABG pCO2 67 H D 51 H D ABG pO2 180 H 260 H D ABG HCO3 26 27 H ABG O2 Saturation 100 H 99 H ABG Base Excess -3 0 VBG pH VBG pCO2 VBG pO2 VBG Base Excess Quality Measures Quality Measures VTE prophylaxis Advance care planning discussed with:: patient Assessment & Plan Assessment Current Active Medications: Generic Name Dose Route Start Last Admin Trade Name Freq PRN Reason Stop Dose Admin Gabapentin 300 mg 05/21/25 21:00 05/25/25 21:21 Gabapentin 300 Mg Capsule PO 06/20/25 20:59 300 mg HS JESSICA Administration Heparin Sodium (Porcine) 2,600 unit 05/23/25 19:07 05/25/25 12:05 Heparin Sod Inj 1000 Unit/Ml Vial 10 Ml INDWELLCAT 06/06/25 19:06 2,600 unit PRN PRN Administration DIALYSIS Heparin Sodium (Porcine) 5,000 unit 05/24/25 09:00 05/26/25 08:06 Heparin Sod Inj 5000 Unit/Ml Vial SC 06/07/25 08:59 5,000 unit Q12HR JESSICA Administration Hydrocortisone Sodium Succinate 25 mg 05/26/25 21:00 Hydrocortisone Sod Succ Inj 100 Mg 2 Ml Vial IV 06/25/25 20:59 BID JESSICA Hydromorphone HCl 1 mg 05/23/25 10:12 05/25/25 17:52 Hydromorphone Inj 2 Mg/Ml Vial IVP 05/26/25 11:43 1 mg Q3HR PRN Administration Breakthrough Pain 7-10 Piperacillin/Tazobactam/Dextrose 3.375 gm in 50 mls @ 12.5 mls/hr 05/22/25 22:30 05/26/25 06:25 Zosyn IV 05/28/25 17:59 12.5 mls/hr Q8HR JESSICA Administration Protocol Albumin Human 25 gm in 100 mls @ 100 mls/hr 05/25/25 09:47 05/25/25 10:53 Albuminex 25% Ivpb IV Infused PRN PRN Infusion DIALYSIS Ipratropium [place] 0.5 mg 05/25/25 07:28 Ipratropium Rt 0.5 Mg/ 2.5 Ml Nebu INH 06/24/25 07:27 Q6HR PRN SHORTNESS OF BREATH Levalbuterol HCl 0.63 mg 05/25/25 07:28 Levalbuterol Rt 0.63 Mg/3 Ml Nebu INH 06/24/25 07:27 Q6HR PRN WHEEZING Melatonin 3 mg 05/21/25 21:00 05/25/25 21:21 Melatonin 3 Mg Tablet PO 06/20/25 20:59 3 mg HS JESSICA Administration Midodrine 10 mg 05/25/25 15:05 05/25/25 15:14 Midodrine 5 Mg Tablet PO 06/24/25 15:14 10 mg TID PRN Administration SBP < 90 and/or DBP < 50 Ondansetron HCl 4 mg 05/16/25 18:34 05/17/25 09:51 Ondansetron Inj 2 Mg/Ml Inj 2 Ml IVP 06/15/25 18:33 4 mg Q6H PRN Administration NAUSEA OR VOMITING Protocol Pantoprazole Sodium 40 mg 05/17/25 09:00 05/26/25 08:06 Pantoprazole Inj 40 Mg Vial IVP 06/16/25 08:59 40 mg QDAY JESSICA Administration Pharmacy Consult 1 each 05/16/25 16:37 Pharmacy Renal Dose Adjustment 1 Ea XX 06/15/25 16:36 PRN PRN CONSULT Plan 70F with history of nephrolithiasis (s/p bilateral nephrostomy tubes), endometrial cancer in remission, T2DM, COPD, and recent colectomy/colostomy for perforated diverticulitis complicated by septic shock and WARREN. Patient remains anuric with rising creatinine, soft blood pressures on Midodrine, and leaking nephrostomy tubes. No dialysis today; plan for nephrostomy tube exchange and continued monitoring. # Acute Kidney Injury Likely recovering ATN following septic shock and prior CRRT. Anuric with rising creatinine (2.2 from 1.7). Leaking nephrostomy tubes may indicate obstruction or malfunction. Plan: * No dialysis today; reassess tomorrow based on renal function and clinical status. * Plan for nephrostomy tube removal and replacement to ensure patency and drainage. * Continue Midodrine 10 mg TID for soft blood pressures. * Strict I&O, monitor for any urine output. * Avoid nephrotoxins, renally dose antibiotics. * Trend renal panel daily. # Metabolic Acidosis ABG pH 7.32, HCO3 27, mild compensated respiratory acidosis. Plan: * Monitor ABG and metabolic panel daily. * Dialysis if worsening acid-base status. # Hypophosphatemia # Hypomagnesemia Phos 4.3, Mg 2.2 ? stable. Plan: * Monitor electrolytes daily. * Replete as needed. Other problems: #Diverticulitis of large intestine with perforation (s/p exploratory laparotomy, sigmoid colectomy, colostomy, hysterectomy on 05/17) #Postoperative state (post-surgical, day 9) #Bibasilar Pneumonia #Septic Shock #Leukocytosis #Normocytic anemia #Thrombocytopenia #Lactic acidosis #Hyponatremia (resolved) #Presence of nephrostomy tubes bilaterally #Presence of colostomy #Type 2 diabetes mellitus (controlled, A1C 5.2) #COPD #Endometrial cancer, in remission #Mechanical ventilation dependence Management per primary team ----- Plan discussed with attending physician Dr. Garcia Jackson MD PGY-1 Internal Medicine Attending Provider Attestation/Addendum Patient seen and examined with resident physician Dr. Jackson. Note reviewed, agree with findings and recommendations. Significant edema noted. Patient currently seen on dialysis. Tolerating dialysis without any problems. Sequential ultrafiltration-3 hours, ultrafiltration 2-3 L, Epogen 6000, no heparin ordered. Plan of care discussed with the dialysis nurse. Please see dialysis flowsheet for further details.
--- NOTE | 2025-05-26 11:00 | PC.SS ---
C[employer]OTE[employer] INSPECTOR informed by Dr. Zelaya that based on patient's current condition will not tolerate outpatient dialysis if outpatient dialysis required.
--- NOTE | 2025-05-26 11:02 | PC.SS ---
[employer] confirmed with patient's son, Kwadwo Kiser; plan is for the patient to transition to SNF upon discharge. No preferred SNF identified.
--- NOTE | 2025-05-26 11:03 | PC.SS ---
Patient to receive dialysis today.
[2025-05-26 11:05] LABS: Lactate (Lactic Acid) 0.7 mMol/L (0.4-2.0)
--- NOTE | 2025-05-26 12:03 | ESCONSULT_ITS ---
RE: SUSAN THOMAS : 1955 multiple problems in anunfortunate 70 year old woman. HISTORY OF PRESENT ILLNESS: The patient is a 70 year old woman with a history of endometrial cancer and respiratory failure. She is also diabetic. She has prior surgical history of a nephrostomy that was changed last October. I am not sure when they were placed originally. The patient could not augment that and also I am not sure she also says she has diverting colostomy at some point. She has chronic kidney disease with a creatinine of baseline of about 2.2. ALLERGIES: NOTED. IMMUNIZATIONS: Unavailable. FAMILY HISTORY: Unavailable. SOCIAL HISTORY: Unavailable. REVIEW OF SYSTEM: as per file. PHYSICAL EXAMINATION: She is a an unfortunate elderly woman looking her stated age. She is on BiPAP, has a draining colostomy in the left lower quadrant and a nephrostomy drainage. Her overall prognosis seems to be guarded. It may be that her cancer is spreading. There are no cultures from surgery, so nothing to guide treatment. Her abdomen is benign. Extremities are unremarkable. Neurologic exam limited due to communication challenges . ASSESSMENT: 1. Respiratory failure without much chest x-ray change in a 70 year old woman. 2. Recurrent urinary tract infection. 3. Prior nephrostomy placement. RECOMMENDATIONS: Usually most antibiotics are most often treated with 7 days of antibiotics. The patient had empiric therapy with Zosyn and with a quinolone and Flagyl that was changed to Zosyn a couple of days ago. That is reasonable. This is apparently based on urine for which she has no listed symptoms. Of note, Zosyn is not effective for atypicals whereas Cipro is. So she has had a full course of treatment for atypicals already. There is really no need to add anything else for that. I will check on her superficially Thursday, but overall she does not look like she is going to do very well. Her prognosis is guarded with her great need for BiPAP at this stage. It may want a Oncology evaluation or palliative care evaluation. DT: 10:53:28 TT: 11:08:00 Ref: [id number] - TID: [id number] MTDD
[2025-05-26] MEDS: ALBUMIN HUMAN-KJDA 25% IVPB 25 GM/100 ML BTL IV (12:14)
--- NOTE | 2025-05-26 13:21 | PC.SS ---
SNF referral submitted on [facility]. No preferred SNF identified. Responses are pending.
--- NOTE | 2025-05-26 13:23 | ESPR_ITS ---
<Statement entered by Kelsey Robles MD - 05/27/25 07:54> TOTAL CC TIME: 45 MIN TOTAL TIME: 45MINUTES ON DIRECT MEDICAL CARE, MANAGEMENT - COORDINATION AND COUNSELING > 50% OF TOTAL TIME I saw and evaluated the patient. I reviewed the resident?s note and agree with findings and plan as documented in the resident?s note. Upon my evaluation, this patient had a high probability of imminent or life- threatening deterioration due to acute hypoxic resp failure which required my direct attention, intervention, and personal management. This time is exclusive of time spent on procedures, which are documented separately if performed. mucus plugging - failed NT suctioning chest percussion emergently intubated followed by bronch doubt pneumonia based on appearance of secretions pt is extremely weak and has impaired cough reflex as well (noted on 05/25 bronch) hemodynamics were improving on HD - unfortunately only 1 liter removed due to resp decompensation IVC plethoric and hepatic vein doppler c/w mild venous congestion <Statement entered by Tim Anguiano MD - 05/26/25 18:39> Patient seen and examined at bedside. I discussed and supervised with the planner internship physician who took care of this patient. I personally saw and examined the patient. I agree with most of the assessment and plan. ICU team has been consulted for management of mucous plug in setting of thick secretions, poor cough reflex and expiratory effort by patient. Patient was started on dialysis session with goal of 2 L fluid removal due to hepatic venous congestion seen on bedside ultrasound. Patient had been on BiPAP for several hours when she developed sudden respiratory distress, hypoxia with O2 sat as low as 77%. Patient had diminished lung sounds on the right, appeared to only be appropriately inflating left side of chest. As such, NG tube suction was attempted to relieve obstruction, failed. Patient was then intubated successfully, followed by bronchoscopy to clear secretions. Throughout procedure, patient demonstrated very poor cough reflex. Patient remains intubated, on sedation with a goal of RASS score 0. Patient has been hypotensive since intubation, likely combination of right ventricular overload and sedation. Titrate Levophed as tolerated, continue intubation, low RASS goal, proceed with goals of care conversations with the family. Plan of care discussed with attending Dr. Robles. Tim Anguiano MD PGY-2 Documentation for date of: 05/26/25 Subjective Subjective Interval history: 05/26/2025: Overnight, patient continued on noninvasive positive pressure ventilation, alternating every 4 hours on and off. Patient began desaturating to 60% on nasal cannula. A transition was made to an Oxymask at 15L, with no improvement. ABG obtained at 12:20 AM revealed a pH of 7.20 and a pCO2 of 67. Patient was started on BiPAP at 1:30 AM. A repeat ABG at 7:28 AM showed improvement, with a pH of 7.32 and pCO2 of 51. Patient had 150 cc of urine in the nephrostomy bag and 125 cc in the colostomy. Patient remained afebrile and continued on BiPAP due to bilateral atelectasis. Lactic acid remained within normal limits. Patient's blood pressure was soft this morning. A [id number] ultrasound of the IVC showed an enlarged, dilated, and minimally collapsible IVC, indicating the need for fluid removal to improve blood pressure. Patient underwent hemodialysis, successfully removing 1L of fluid. Although the goal was to remove 2L, the procedure was stopped after the patient?s oxygen sat dropped into the 70s on BiPAP. A transition to high-flow nasal cannula did not show improvement, and oxygen saturation remained in the 70s. On exam, patient was only expanding the left side of the chest during inspiration. Bagging was initiated. Patient was instructed to cough to mobilize the mucus plug, but was too weak to do. Patient was intubated for acute hypoxic respiratory failure. A bronchoalveolar lavage was performed to clear the mucus plug in the right lower lung. Following intubation, care was transferred to the ICU. Patient was started on Levophed 0.05 for hypotension. Primary team contacted the patient's son, Kwadwo, to provide update on patient's overall condition. ICU team also reached out to update him on the patient's recent intubation. He plans to fly and arrive at the hospital by this weekend. At this time patient remains full code. History of Present Illness: 70-year-old female with a history of nephrolithiasis (status post bilateral nephrostomy tubes in September 2024), endometrial cancer, type 2 diabetes mellitus, and chronic anemia, presented with severe abdominal pain, vomiting, fever, and chills. Patient was found to have acute sigmoid diverticulitis complicated by localized perforation and sepsis, necessitating ICU admission for pressors. Patient is post-operative day 8 following an exploratory laparotomy, sigmoid colectomy with end descending colostomy, and hysterectomy. ICU team was consulted by the primary team after the patient experienced an episode of desaturation, with O2 saturation dropping to 77% accompanied by coughing. Patient was promptly placed on an oxymask, and a chest X-ray was obtained, revealing a mucus plug in the left mainstem bronchus with associated atelectasis. Despite attempts at non-invasive nasotracheal suctioning and chest physiotherapy, the patient showed no improvement. Proceeded to bronchoalveolar lavage to clear the mucus plugs, which the patient tolerated well. Exam Vital Signs Temp Pulse Resp BP Pulse Ox O2 Del Method O2 Flow Rate 97.8 F 79 17 85/60 L 100 BiPAP 2 05/26/25 11:59 05/26/25 13:15 05/26/25 13:00 05/26/25 13:15 05/26/25 13:00 05/26/25 08:00 05/26/25 11:59 FiO2 100 05/26/25 11:59 Narrative Exam Physical Exam: General: Obese body habitus. Intubated and sedated. ETT in place. Head: Normocephalic, atraumatic. Right central line site is clean, dry and intact. Eyes: Pupils equally round and reactive to light. Anicteric. Mouth/Throat: Moist mucous membranes. Heart: Regular rate and rhythm, no murmurs. No JVD. Chemo port on right upper chest. Lungs: Bilateral rhochi and wheezing on auscultation to anterior chest. Abdomen: Soft and tender to touch, no rebound. Midline incision under bandage with daina, bruising at site. Ostomy LLQ. : No otmlinson, nephrostomy tubes bilaterally. Neurologic: Alert and oriented x3, no gross neurological deficit, and patient able to move all 4 extremities. Extremities: Mild edema of hands. 2+ edema of feet. Posterior tibial pulses are 2+ bilaterally. 2+ radial pulse bilaterally. No clubbing or cyanosis. No mottling. Skin: Dry and flakey skin on bilateral lower legs. Objective Labs 05/26/25 05:10 05/26/25 05:10 Labs: Laboratory Results - last 24 hr 05/26/25 05/26/25 05/26/25 00:20 05:10 07:28 WBC 15.5 H D RBC 3.03 L Hgb 8.5 L Hct 27.5 L MCV 91 MCH 28.1 MCHC 30.9 L RDW Std Deviation 59.4 H Plt Count 147 D Neut % (Auto) 88 H Lymph % (Auto) 4 L [place] % (Auto) 3 Eos % (Auto) 0 Baso % (Auto) 1 Neut # (Auto) 13.6 H Lymph # (Auto) 0.7 L [place] # (Auto) 0.4 Eos # (Auto) 0.0 Baso # (Auto) 0.1 Immature Gran # (Auto) 0.73 H Absolute Nucleated RBC 0.10 H Immature Gran % 5 H Nucleated RBC % 1 H Puncture Site Right Radial Right Radial ABG pH 7.20 L D 7.32 L D ABG pCO2 67 H D 51 H D ABG pO2 180 H 260 H D ABG HCO3 26 27 H ABG O2 Saturation 100 H 99 H ABG Base Excess -3 0 FiO2 100 70 Sodium 142 Potassium 4.0 Chloride 101 Carbon Dioxide 27.7 Anion Gap 13 BUN 25 H Creatinine 2.2 H D Estim Creat Clear Calc 23.1 L eGFR 24 L BUN/Creatinine Ratio 11 L Glucose 86 Calculated Osmolality 286 Lactic Acid Calcium 8.7 Corrected Calcium 8.9 Phosphorus 4.3 Magnesium 2.2 Total Bilirubin 0.5 AST 16 ALT 11 Alkaline Phosphatase 128 H D Total Protein 5.4 L Albumin 3.8 Globulin 1.6 L Albumin/Globulin Ratio 2.4 H 05/26/25 10:45 WBC RBC Hgb Hct MCV MCH MCHC RDW Std Deviation Plt Count Neut % (Auto) Lymph % (Auto) [place] % (Auto) Eos % (Auto) Baso % (Auto) Neut # (Auto) Lymph # (Auto) [place] # (Auto) Eos # (Auto) Baso # (Auto) Immature Gran # (Auto) Absolute Nucleated RBC Immature Gran % Nucleated RBC % Puncture Site ABG pH ABG pCO2 ABG pO2 ABG HCO3 ABG O2 Saturation ABG Base Excess FiO2 Sodium Potassium Chloride Carbon Dioxide Anion Gap BUN Creatinine Estim Creat Clear Calc eGFR BUN/Creatinine Ratio Glucose Calculated Osmolality Lactic Acid 0.7 Calcium Corrected Calcium Phosphorus Magnesium Total Bilirubin AST ALT Alkaline Phosphatase Total Protein Albumin Globulin Albumin/Globulin Ratio ABG Interpretation ABG results: 05/16/25 05/16/25 05/16/25 12:11 18:26 19:18 ABG pH 7.41 ABG pCO2 29 L ABG pO2 86 ABG HCO3 18 L ABG O2 Saturation 96 ABG Base Excess -6 L VBG pH 7.26 L 7.36 VBG pCO2 36 32 L VBG pO2 49 46 VBG Base Excess -10 L -7 L 05/17/25 05/17/25 05/17/25 01:51 01:58 12:35 ABG pH 7.34 L 7.21 L D ABG pCO2 30 L 30 L ABG pO2 92 181 H D ABG HCO3 16 L 12 L ABG O2 Saturation 97 99 H ABG Base Excess -9 L -15 L VBG pH 7.28 L VBG pCO2 37 VBG pO2 60 H VBG Base Excess -9 L 05/17/25 05/17/25 05/18/25 15:12 22:59 04:06 ABG pH 7.17 L* 7.26 L 7.23 L ABG pCO2 32 26 L 32 ABG pO2 343 H D 298 H D 208 H D ABG HCO3 12 L 12 L 13 L ABG O2 Saturation 100 H 100 H 100 H ABG Base Excess -16 L -14 L -13 L VBG pH VBG pCO2 VBG pO2 VBG Base Excess 05/18/25 05/19/25 05/20/25 12:10 07:13 17:49 ABG pH 7.49 H D ABG pCO2 35 ABG pO2 126 H D ABG HCO3 26 ABG O2 Saturation 99 H ABG Base Excess 3 VBG pH 7.23 L 7.57 VBG pCO2 35 L 35 L VBG pO2 173 H D 36 D VBG Base Excess -12 L 10 H 05/21/25 05/22/25 05/25/25 10:08 04:59 07:52 ABG pH 7.45 7.44 7.33 L ABG pCO2 34 32 49 H ABG pO2 70 L D 140 H D 173 H ABG HCO3 24 22 26 ABG O2 Saturation Not Performed. 99 H 98 ABG Base Excess 0 -2 0 VBG pH VBG pCO2 VBG pO2 VBG Base Excess 05/26/25 05/26/25 00:20 07:28 ABG pH 7.20 L D 7.32 L D ABG pCO2 67 H D 51 H D ABG pO2 180 H 260 H D ABG HCO3 26 27 H ABG O2 Saturation 100 H 99 H ABG Base Excess -3 0 VBG pH VBG pCO2 VBG pO2 VBG Base Excess Quality Measures Quality Measures VTE prophylaxis Advance care planning discussed with:: patient Assessment & Plan Assessment Current Active Medications: Generic Name Dose Route Start Last Admin Trade Name Freq PRN Reason Stop Dose Admin Gabapentin 300 mg 05/21/25 21:00 05/25/25 21:21 Gabapentin 300 Mg Capsule PO 06/20/25 20:59 300 mg HS JESSICA Administration Heparin Sodium (Porcine) 2,600 unit 05/23/25 19:07 05/25/25 12:05 Heparin Sod Inj 1000 Unit/Ml Vial 10 Ml INDWELLCAT 06/06/25 19:06 2,600 unit PRN PRN Administration DIALYSIS Heparin Sodium (Porcine) 5,000 unit 05/24/25 09:00 05/26/25 08:06 Heparin Sod Inj 5000 Unit/Ml Vial SC 06/07/25 08:59 5,000 unit Q12HR JESSICA Administration Hydrocortisone Sodium Succinate 25 mg 05/26/25 21:00 Hydrocortisone Sod Succ Inj 100 Mg 2 Ml Vial IV 06/25/25 20:59 BID JESSICA Piperacillin/Tazobactam/Dextrose 3.375 gm in 50 mls @ 12.5 mls/hr 05/22/25 22:30 05/26/25 10:25 Zosyn IV 05/28/25 17:59 Infused Q8HR JESSICA Infusion Protocol Albumin Human 25 gm in 100 mls @ 100 mls/hr 05/25/25 09:47 05/26/25 13:14 Albuminex 25% Ivpb IV Infused PRN PRN Infusion DIALYSIS Ipratropium [place] 0.5 mg 05/25/25 07:28 Ipratropium Rt 0.5 Mg/ 2.5 Ml Nebu INH 06/24/25 07:27 Q6HR PRN SHORTNESS OF BREATH Levalbuterol HCl 0.63 mg 05/25/25 07:28 Levalbuterol Rt 0.63 Mg/3 Ml Nebu INH 06/24/25 07:27 Q6HR PRN WHEEZING Melatonin 3 mg 05/21/25 21:00 05/25/25 21:21 Melatonin 3 Mg Tablet PO 06/20/25 20:59 3 mg HS JESSICA Administration Midodrine 10 mg 05/25/25 15:05 05/25/25 15:14 Midodrine 5 Mg Tablet PO 06/24/25 15:14 10 mg TID PRN Administration SBP < 90 and/or DBP < 50 Ondansetron HCl 4 mg 05/16/25 18:34 05/17/25 09:51 Ondansetron Inj 2 Mg/Ml Inj 2 Ml IVP 06/15/25 18:33 4 mg Q6H PRN Administration NAUSEA OR VOMITING Protocol Pantoprazole Sodium 40 mg 05/17/25 09:00 05/26/25 08:06 Pantoprazole Inj 40 Mg Vial IVP 06/16/25 08:59 40 mg QDAY JESSICA Administration Pharmacy Consult 1 each 05/16/25 16:37 Pharmacy Renal Dose Adjustment 1 Ea XX 06/15/25 16:36 PRN PRN CONSULT Plan 70-year-old female with history of nephrolithiasis (s/p bilateral nephrostomy tubes Sep 2024), endometrial cancer in remission, T2DM, and chronic anemia presenting with severe abdominal pain, vomiting, fever, and chills, found to have acute sigmoid diverticulitis with localized perforation and sepsis requiring ICU admission. Neurology #Chemical sedation Treatment Plan: - Propofol 20 and Fentanyl 125. - Patient is intubated. #Post-operative pain Treatment Plan: - Gabapentin 300 mg PO HS. - Hydromorphone 1 mg Q3HR PRN breakthrough pain. Cardiovascular #Shock, likely secondary to Right ventricular fluid overload. Diagnostic Test: - Point of care ultrasound 05/26: enlarged, dilated, and minimally collapsible IVC. Indicating fluid removal needed. - Improved blood pressure with hemodialysis today with removal of 1L of fluid. Treatment Plan: - Started Levophed 0.05 for hypotension. - Continue to taper stress steroid dose - hydrocortisone: 25 mg IV Q12H (50 mg total) for 2 days (05/26-05/27), then 25 mg IV daily for 2 days (05/28-05/29) then stop. (stress steroid dose taper from septic shock on admission). - Maintain an adequate blood pressure (MAP target 65-70). - Monitor hemodynamics closely and adjust vasopressor therapy as needed. Respiratory #Acute hypoxic respiratory failure. Likely due to mucous plug. Diagnostic Test: - CXR 05/25: left lung mucous plug in the mainstem bronchus with atelectasis. - CXR 05/26: bibasilar pneumonia. - Patient has poor inspiratory effort and weakness and was unable to cough to remove mucous plug. Treatment review (completed) - Bronchoscopy performed on 05/25 to clear mucous plug in left lower lobe. - Reintubated on 05/26. - Bronchoscopy performed on 05/26 to clear mucous plug and secretions from right lower lobe. Treatment Plan: - 05/25 bronchoscopy culture pending. - MV settings: VT 350, FIO2 50, PEEP 8.0, RR 16, Ppeak 27.3, Pplateau 21.8. GI, , F/E/N #Perforated sigmoid diverticulitis with feculent peritonitis (post-op day 10) S/p exploratory laparotomy, sigmoid colectomy with end descending colostomy and hysterectomy on 05/17. Diagnostic Test: - CT abd/pelvis: acute sigmoid diverticulitis with localized rupture of diverticula and mild pelvic pneumoperitoneum. - Surgery findings: inflamed and thickened sigmoid with large perforation and feculent peritonitis. Inflamed and necrotic appearing uterus. Very thin anterior abdominal fascia with evidence of multiple mesh placements from prior operations. - Pathology report 05/16: uterus - endometroid carcinoma with extensive necrosis with negative surgical margins. Sigmoid colon - extensive diverticulosis with perforation and inflammation. Treatment Review (completed) - Trophic feeds (05/22 - 05/23). Treatment Plan: - Ondansetron 4mg IV Q6H PRN for nausea. - Monitor colostomy bag for activity. - Plan to start trophic feeds of Nepro at 10ml/hr via OG tube. #History of endometrial cancer #Recurrent endometrial cancer Diagnostic Test: - Pathology report 05/16: uterus - endometroid carcinoma with extensive necrosis with negative surgical margins. Treatment Plan: - Being followed with Rad/Onc in [place]. Renal #Acute kidney injury DDx: hypoperfusion vs sepsis vs obstrutive component from nephrostomy tubes. Diagnostic Test: - Baseline Cr: 0.8-1.3. - Cr 2.3 on admission. - CT abd/pelvis: Bilateral nephrostomy ureteral catheter. Treatment Review (completed) - Started Tablo/DATA TRANSCRIBER on 05/19 - 05/20. - HD with removal of 1L on 05/26. Treatment Plan: - Daily renal panel to trend Cr. - Avoid nephrotoxins. - Renally dose meds as appropriate. - Strict I&Os, monitor urine output closely. #Hematuria Diagnostic Test: - UA: RBC 54. Treatment Plan: - Follow-up outpatient with urology to work-up hematuria. #Obstrutive nephrolithiasis s/p nephrostomy tube Patient's nephrostomy tubes have been leaking urine from attachment site. Treatment Plan: - Dr. Woody?(urologist) plans to replace tubes on 05/31. NPO after midnight on 05/31. Heme #Normocytic anemia DDx: anemia of chronic disease vs iron-deficiency anemia vs reactive. Diagnostic Test: - Hemoglobin 8.5. Treatment Plan: - Peripheral blood smear pending. - Haptoglobin levels pending to evaluate for hemolysis. - Monitor CBC. Endo #Noninsulin dependent T2DM Diagnostic Test: - Hemoglobin A1c on 05/12/2025 was 5.2. Treatment Plan: - Continue to check blood glucose levels as diet has been restarted. - Will start insulin if need better glycemic control. ID #E. Coli urinary tract infection Diagnostic Test: - Urinalysis: blood 2+, RBC 54, WBC 1069, bacteria 4+, positive leukocyte esterase. - Patient has history of positive UAs. - 10/31/24 urine culture: Klebsiella. Started Ciprofloxacin 400 mg. - Urine culture 05/16 showed E. Coli. Treatment Review (completed): - Ciprofloxacin (05/17-05/19). Treatment Plan: - Zosyn dosing per pharmacy for E.coli on urine culture (05/19-05/28). Health Maintenance: DVT prophylaxis: heparin 5000 SC. GI prophylaxis: Pantoprazole 40 mg IV daily. Diet: npo [place]: none Lines: right IJ dialysis cath. Drips: levophed Vent: MV, reintubated 05/26. CODE STATUS: FULL CODE Patient plan of care was discussed with the senior resident, Dr. Anguiano, and attending physician, Dr. Robles. Becca Diop, DO Internal Medicine PGY-1
--- NOTE | 2025-05-26 13:27 | PC.SS ---
PASSR completed. Patient meets Level I criteria.
--- NOTE | 2025-05-26 13:41 | PC.SS ---
MANAGER OF BUSINESS OPERATIONS fielded phone call from [facility] staff, [place] ; stating that prior to patient's admission patient was aligned with [facility] services. [facility] staff stated that if patient and family decide to transition to hospice services, [facility] offers hospice services.
--- NOTE | 2025-05-26 14:01 | XR_ITS ---
EXAMINATION: AP chest single view TECHNIQUE: AP portable supine chest single view Date and time: May 26, 2025, 1456 hours, comparison May 26, 2025 0711 hours INDICATIONS: Post orogastric tube placement FINDINGS: Orogastric tube in the stomach, the tip is below the level of the film Bibasilar pneumonia Central line and Port-A-Cath unchanged Endotracheal tube tip 3.5 cm above alvaro IMPRESSION: Orogastric tube in the stomach, the tip is below the level of the film
[2025-05-26] MEDS: ROCURONIUM INJ 10 MG/ML VIAL 10 ML 100 MG IV (14:17)
[2025-05-26] MEDS: ETOMIDATE INJ 2 MG/ML VIAL 10 ML 20 MG IVP (14:17)
--- NOTE | 2025-05-26 14:19 | PC.SS ---
Patient undergoing re-intubation at this time.
[2025-05-26] MEDS: PROPOFOL 1,000 MG IVPB 1,000 MG/100 ML VIAL 2.463 MG IV (14:20)
[2025-05-26] MEDS: fentaNYL 2,500 MCG/250 ML BAG 2,500 MCG/250 ML BAG IV (14:25)
--- NOTE | 2025-05-26 14:51 | ESPR_ITS ---
<Statement entered by Juan Luis Manzo MD - 05/29/25 15:52> I reviewed above note and agree with findings and plans. I have also personally examined the patient with medicine team and went over assessment and plan with medical team including gallery intern and resident physician. Documentation for date of: 05/26/25 Subjective Subjective Interval history: Patient's blood pressure has been low this morning. Ultrasound of IVC showed enlarged, dilated, and minimally collapsible IVC that showed she is fluid overloaded. Hemodialysis has been done to remove the fluid however the patient had hypoxic episodes, desaturating down to 70% on BiPAP. Today, patient has been transferred back to ICU for being hypoxic while on BiPAP. Repeat chest x-ray has been done which showed significant mucous plugging with patient's minimal respiratory effort to remove the mucus. It was concluded that the patient need to be intubated and transferred back to ICU. Bronchoscopy has been done today to remove the mucus. Team has contacted patient's son Kwadwo to provide update on her condition. Exam Vital Signs Temp Pulse Resp BP Pulse Ox O2 Del Method O2 Flow Rate 97.6 F 88 21 H 116/72 80 L BiPAP 2 05/26/25 14:12 05/26/25 14:12 05/26/25 14:12 05/26/25 14:12 05/26/25 14:12 05/26/25 08:00 05/26/25 14:12 FiO2 100 05/26/25 14:12 Narrative Exam General: Obese, elderly, intubated and sedated. Eye: Normal conjunctiva, no scleral icterus HENT: Normocephalic, atraumatic, hearing intact to conversation at normal volume, moist oral mucosa. Neck: Supple, non-tender, no JVD, no lymphadenopathy Lungs: Non-labored respirations, symmetric chest rise, Clear to auscultate bilaterally, No wheezing, rhonchi, crackles Heart: Peripheral pulses intact bilaterally, Regular Rate and Rhythm. Abdomen: Midline incision under bandage with daina, bruising at site. Ostomy LLQ. Musculoskeletal: Normal range of motion and strength, No cyanosis or edema, No visible joint swelling, nephrostomy drains with minimal output. +1 edema in BLE. Right upper chest chemo port noted. Skin: Skin is warm, dry Neuro: Cranial nerves II-XII grossly intact. Objective Labs 05/26/25 05:10 05/26/25 05:10 Labs: Laboratory Results - last 24 hr 05/26/25 05/26/25 05/26/25 00:20 05:10 07:28 WBC 15.5 H D RBC 3.03 L Hgb 8.5 L Hct 27.5 L MCV 91 MCH 28.1 MCHC 30.9 L RDW Std Deviation 59.4 H Plt Count 147 D Neut % (Auto) 88 H Lymph % (Auto) 4 L [place] % (Auto) 3 Eos % (Auto) 0 Baso % (Auto) 1 Neut # (Auto) 13.6 H Lymph # (Auto) 0.7 L [place] # (Auto) 0.4 Eos # (Auto) 0.0 Baso # (Auto) 0.1 Immature Gran # (Auto) 0.73 H Absolute Nucleated RBC 0.10 H Immature Gran % 5 H Nucleated RBC % 1 H Puncture Site Right Radial Right Radial ABG pH 7.20 L D 7.32 L D ABG pCO2 67 H D 51 H D ABG pO2 180 H 260 H D ABG HCO3 26 27 H ABG O2 Saturation 100 H 99 H ABG Base Excess -3 0 FiO2 100 70 Sodium 142 Potassium 4.0 Chloride 101 Carbon Dioxide 27.7 Anion Gap 13 BUN 25 H Creatinine 2.2 H D Estim Creat Clear Calc 23.1 L eGFR 24 L BUN/Creatinine Ratio 11 L Glucose 86 Calculated Osmolality 286 Lactic Acid Calcium 8.7 Corrected Calcium 8.9 Phosphorus 4.3 Magnesium 2.2 Total Bilirubin 0.5 AST 16 ALT 11 Alkaline Phosphatase 128 H D Total Protein 5.4 L Albumin 3.8 Globulin 1.6 L Albumin/Globulin Ratio 2.4 H 05/26/25 10:45 WBC RBC Hgb Hct MCV MCH MCHC RDW Std Deviation Plt Count Neut % (Auto) Lymph % (Auto) [place] % (Auto) Eos % (Auto) Baso % (Auto) Neut # (Auto) Lymph # (Auto) [place] # (Auto) Eos # (Auto) Baso # (Auto) Immature Gran # (Auto) Absolute Nucleated RBC Immature Gran % Nucleated RBC % Puncture Site ABG pH ABG pCO2 ABG pO2 ABG HCO3 ABG O2 Saturation ABG Base Excess FiO2 Sodium Potassium Chloride Carbon Dioxide Anion Gap BUN Creatinine Estim Creat Clear Calc eGFR BUN/Creatinine Ratio Glucose Calculated Osmolality Lactic Acid 0.7 Calcium Corrected Calcium Phosphorus Magnesium Total Bilirubin AST ALT Alkaline Phosphatase Total Protein Albumin Globulin Albumin/Globulin Ratio ABG Interpretation ABG results: 05/16/25 05/16/25 05/16/25 12:11 18:26 19:18 ABG pH 7.41 ABG pCO2 29 L ABG pO2 86 ABG HCO3 18 L ABG O2 Saturation 96 ABG Base Excess -6 L VBG pH 7.26 L 7.36 VBG pCO2 36 32 L VBG pO2 49 46 VBG Base Excess -10 L -7 L 05/17/25 05/17/25 05/17/25 01:51 01:58 12:35 ABG pH 7.34 L 7.21 L D ABG pCO2 30 L 30 L ABG pO2 92 181 H D ABG HCO3 16 L 12 L ABG O2 Saturation 97 99 H ABG Base Excess -9 L -15 L VBG pH 7.28 L VBG pCO2 37 VBG pO2 60 H VBG Base Excess -9 L 05/17/25 05/17/25 05/18/25 15:12 22:59 04:06 ABG pH 7.17 L* 7.26 L 7.23 L ABG pCO2 32 26 L 32 ABG pO2 343 H D 298 H D 208 H D ABG HCO3 12 L 12 L 13 L ABG O2 Saturation 100 H 100 H 100 H ABG Base Excess -16 L -14 L -13 L VBG pH VBG pCO2 VBG pO2 VBG Base Excess 05/18/25 05/19/25 05/20/25 12:10 07:13 17:49 ABG pH 7.49 H D ABG pCO2 35 ABG pO2 126 H D ABG HCO3 26 ABG O2 Saturation 99 H ABG Base Excess 3 VBG pH 7.23 L 7.57 VBG pCO2 35 L 35 L VBG pO2 173 H D 36 D VBG Base Excess -12 L 10 H 05/21/25 05/22/25 05/25/25 10:08 04:59 07:52 ABG pH 7.45 7.44 7.33 L ABG pCO2 34 32 49 H ABG pO2 70 L D 140 H D 173 H ABG HCO3 24 22 26 ABG O2 Saturation Not Performed. 99 H 98 ABG Base Excess 0 -2 0 VBG pH VBG pCO2 VBG pO2 VBG Base Excess 05/26/25 05/26/25 00:20 07:28 ABG pH 7.20 L D 7.32 L D ABG pCO2 67 H D 51 H D ABG pO2 180 H 260 H D ABG HCO3 26 27 H ABG O2 Saturation 100 H 99 H ABG Base Excess -3 0 VBG pH VBG pCO2 VBG pO2 VBG Base Excess Quality Measures Quality Measures VTE prophylaxis Advance care planning discussed with:: patient and other Assessment & Plan Assessment Current Active Medications: Generic Name Dose Route Start Last Admin Trade Name Freq PRN Reason Stop Dose Admin Gabapentin 300 mg 05/21/25 21:00 05/25/25 21:21 Gabapentin 300 Mg Capsule PO 06/20/25 20:59 300 mg HS JESSICA Administration Heparin Sodium (Porcine) 2,600 unit 05/23/25 19:07 05/25/25 12:05 Heparin Sod Inj 1000 Unit/Ml Vial 10 Ml INDWELLCAT 06/06/25 19:06 2,600 unit PRN PRN Administration DIALYSIS Heparin Sodium (Porcine) 5,000 unit 05/24/25 09:00 05/26/25 08:06 Heparin Sod Inj 5000 Unit/Ml Vial SC 06/07/25 08:59 5,000 unit Q12HR JESSICA Administration Hydrocortisone Sodium Succinate 25 mg 05/26/25 21:00 Hydrocortisone Sod Succ Inj 100 Mg 2 Ml Vial IV 06/25/25 20:59 BID JESSICA Piperacillin/Tazobactam/Dextrose 3.375 gm in 50 mls @ 12.5 mls/hr 05/22/25 22:30 05/26/25 10:25 Zosyn IV 05/28/25 17:59 Infused Q8HR JESSICA Infusion Protocol Albumin Human 25 gm in 100 mls @ 100 mls/hr 05/25/25 09:47 05/26/25 13:14 Albuminex 25% Ivpb IV Infused PRN PRN Infusion DIALYSIS Fentanyl Citrate 2,500 mcg in 250 mls @ 2.5 mls/hr 05/26/25 14:36 Sublimaze Inj 2,500 Mcg/250 Ml Bag IV 05/31/25 14:16 .Q24H PRN PER PROTOCOL Protocol 25 MCG/HR Propofol 1,000 mg in 100 mls @ 2.463 mls/hr 05/26/25 14:37 Diprivan Ivpb IV 06/25/25 14:21 .Q24H PRN PER PROTOCOL Protocol 5 MCG/KG/MIN Ipratropium [place] 0.5 mg 05/25/25 07:28 Ipratropium Rt 0.5 Mg/ 2.5 Ml Nebu INH 06/24/25 07:27 Q6HR PRN SHORTNESS OF BREATH Levalbuterol HCl 0.63 mg 05/25/25 07:28 Levalbuterol Rt 0.63 Mg/3 Ml Nebu INH 06/24/25 07:27 Q6HR PRN WHEEZING Melatonin 3 mg 05/21/25 21:00 05/25/25 21:21 Melatonin 3 Mg Tablet PO 06/20/25 20:59 3 mg HS JESSICA Administration Midodrine 10 mg 05/25/25 15:05 05/25/25 15:14 Midodrine 5 Mg Tablet PO 06/24/25 15:14 10 mg TID PRN Administration SBP < 90 and/or DBP < 50 Ondansetron HCl 4 mg 05/16/25 18:34 05/17/25 09:51 Ondansetron Inj 2 Mg/Ml Inj 2 Ml IVP 06/15/25 18:33 4 mg Q6H PRN Administration NAUSEA OR VOMITING Protocol Pantoprazole Sodium 40 mg 05/17/25 09:00 05/26/25 08:06 Pantoprazole Inj 40 Mg Vial IVP 06/16/25 08:59 40 mg QDAY JESSICA Administration Pharmacy Consult 1 each 05/16/25 16:37 Pharmacy Renal Dose Adjustment 1 Ea XX 06/15/25 16:36 PRN PRN CONSULT Plan 70-year-old female with history of nephrolithiasis (s/p bilateral nephrostomy tubes Sep 2024), endometrial cancer in remission, T2DM, and chronic anemia presenting with severe abdominal pain, vomiting, fever, and chills, found to have acute sigmoid diverticulitis with localized perforation and sepsis requiring ICU admission on 05/16/2025. Patient downgraded to tele for monitoring patient's on 05/24/2025 condition.Patient has been transferred back to ICU #Acute Hypoxic Respiratory Failure 2/2 Mucus plug -In morning of 05/25, patient's oxygen level was desaturating and required 15 L of oxygen through nasal cannula to reach 97% of oxygen saturation. -CXR (05/25/2025): Findings most consistent with total left lung atelectasis perhaps related to mucous plug in the mainstem bronchus. Recommend ultrasound left hemithorax to confirm atelectasis and exclude left pleural fluid -Patient received bronchoscopy on 05/25 to remove mucus from her left lung -After Bronchoscopy, repeat CXR (05/25/2025): Significant partial reaeration of the left lung, Atelectasis in the left lower lung zone, Enlarged left ventricle, Port-A-Cath and dialysis catheter satisfactory position -Continously having mucus plugging in need of intubation. -Bronchoscopy has been done to remove mucus. Plan: -Patient was intubated and sedated. -Care will be managed by ICU team. #Septic shock - (resolved) #2/2 Perforated sigmoid diverticulitis with feculent peritonitis (post-op day 7) -On admission, 3/4 SIRS criteria on admission: BP 84/58 T 101.1F, RR 31, WBC 16.3. lactic acid level of 4.8 , Troponin < 0.002. -qSOFA score of 2 (RR 31 and SBP 84). -CT abd/pelvis: diverticulitis of large intestine with perforation. -WARREN due to sepsis: baseline Cr 0.8-1.3. Cr 2.3 on this admission. -Echo 05/18: Normal LV size, wall thickness. Estimated LVEF at 60%. RV is normal in size and systolic function. Mild mitral regurgitation. Mild tricuspid regurgitation. -Urine culture- MDR Ecoli, Blood culture - no growth. -S/p exploratory laparotomy, sigmoid colectomy with end descending colostomy and hysterectomy on 05/17. -CT abd/pelvis: acute sigmoid diverticulitis with localized rupture of diverticula and mild pelvic pneumoperitoneum. -Surgery findings: inflamed and thickened sigmoid with large perforation and feculent peritonitis. Inflamed and necrotic appearing uterus. Very thin anterior abdominal fascia with evidence of multiple mesh placements from prior operations. -Pathology report 05/16: uterus - endometroid carcinoma with extensive necrosis with negative surgical margins. Sigmoid colon - extensive diverticulosis with perforation and inflammation. Plan: -Continue to taper stress steroid dose - hydrocortisone: 50 mg twice daily (100 mg total) until 05/25, then 25 mg IV Q12H (50 mg total) for 2 days (05/26- 05/27), then 25 mg IV daily for 2 days (05/28-05/29) then stop. Monitor blood pressure, glucose, mental status, and signs of adrenal insufficiency (fatigue, hypotension) -Continue to treat MDR E.coli UTI with Zosyn (05/19-05/28). -Ondansetron 4mg IV Q6H PRN for nausea. -Monitor colostomy bag for activity. -Start liquid diet and progress to solids as tolerated. -May use abdominal binder as needed. -Ambulate out of bed twice daily -Gabapentin 300 mg PO HS (can also help prevent ICU delirium). -Hydromorphone 1 mg Q3HR PRN breakthrough pain. #Acute kidney injury - Resolving #Anuria #Hx of nephrolithiasis, s/p bilateral nephrostomy tubes in September 2024 #Hematuria -WARREN likely multifactorial; Hypoperfusion from sepsis vs Obstruction from nephrostomy tube vs ATN after septic shock -Cr 2.3 on admission. Baseline Cr: 0.8-1.3. -UA: RBC 54. -CT abd/pelvis: Bilateral nephrostomy ureteral catheter. Plan: -Pending dialysis 05/25 -Avoid nephrotoxins. -Renally dose meds as appropriate. -Strict I&Os, monitor urine output closely. -Maintain MAP >65 mmHg for renal perfusion. #UTI -Urine culture 05/16 showed E. Coli. -IV Zosyn (05/19-05/28). #Normocytic anemia -2 unit pRBC transfusion on 05/17 after surgery and 1 unit pRBC transfusion on 05/21 for Hgb 6.7 Plan: -Monitor H&H. -Transfusing for Hgb <7 or symptomatic. -Peripheral blood smear pending. -Haptoglobin levels pending to evaluate for hemolysis #Thrombocyopenia -Resolving -Plt 602 on admission, Plt 419 on 05/17, 106 on 05/18, Plt 11 05/19, Plt 8 05/20, Plt 39 post platelet transfusion 05/20. Plan: -Heparin 5000 sc q12hr restarted 05/24 for DVT ppx. - Monitor platelets, transfuse to keep > 10k, >20k for invasive procedures. #Leukocytosis - Resolving -Continue IV Zoysn #Noninsulin dependent T2DM -Hemoglobin A1c on 05/12/2025 was 5.2. and Blood glucose 154 on admission. Plan: -Monitor glucose level -Possible SSI based on patient's glucose level #Hx of COPD -Monitor O2 saturation and respiratory effort. -No steroids or bronchodilators unless COPD exacerbation evident. #History of endometrial cancer #Recurrent endometrial cancer -F/u outpt in [place]. #Primary anion gap metabolic acidosis - Resolved Disposition: Tele for obs Diet: liquid diet GI prophylaxis: heparin 5000 SC. DVT prophylaxis: Pantoprazole 40 mg IV daily. Code:FULL CODE Assessment and plan discussed with my attending physician Dr. Jovany Barba (PGY-1) - Internal medicine resident
[2025-05-26] MEDS: Norepinephrine/D5W 8mg/250ml 8 MG/250 ML BAG 7.697 MG IV (14:55)
--- NOTE | 2025-05-26 15:09 | ESOP_ITS ---
<Statement entered by Kelsey Robles MD - 05/27/25 07:56> I was present throughout the entire duration of the procedure and was immediately available to provide assistance. PROCEDURES: Procedure Date / Time 05/26/25 1417 Arterial Line Size (Gauge): 20 Intubation Indication(s): acute Resp Failure Informed consent obtained: procedure done urgently Time out done, and the following verified: correct patient, side and site, procedure, patient position and implants and/or equipment Sedative: etomidate Mg given: 20 Paralytic: rocuronium Mg given: 100 Laryngoscope: fiber optic video scope Assist device used: fiber optic device ET tube size: 7.5 ET tube uncuffed: Yes Tube secured depth (cm): 22 Tube secured location: lips Tube placement confirmation: visualized tube passing through cords and confirmation by capnometry Patient tolerated procedure: well and no complications EBL(ml): 0 Intubation complications: none Additional comments: Patient began rapidly desaturating while on BiPAP. Significantly decreased lung sounds in R lung, visibly inflating left chest more than right. NG suctioning was attempted to clear likely mucus plug, unsuccessful. Patient was urgently intubated. Sedated with Etomidate, paralyzed with Rocuronium. Glidoscope was used to perform intubation, which was completed without complication. Correct placement confirmed with capnography, followed by bronchoscopy. CXR was also taken to confirm. Procedure completed under supervision/guidance of Dr. Robles. Tim Anguiano MD PGY-2
[2025-05-26 15:56] LABS: Base Excess -2 (-3-3); HCO3 25 mEq/L (20-26); Inspired Oxygen, FIO2 50 %; O2 Saturation 97 % (91-98); PCO2 53 mmHg (32.0-48.0); PO2 90 mmHg (83-108); pH, Arterial 7.29 (7.35-7.45)
[2025-05-26 16:06] LABS: Allen Test Performed/OK; Puncture Site Right Radial
--- NOTE | 2025-05-26 16:35 | PC.RT ---
called to pt bedside for desturation into 70's while on Bipap. pt not tolerating, MD at beside. Pt plaed on HFNC 35L 100% then NT SXNd by . Patient still desat into 70's. Patient intubated at 1418 with 7.5 ett, secured at 22 gums with anchor fast. Post intubation, MD performed bronchoscopy to clear mucus plug. After bronch, patient placed on vent on ordered settings. pt tolerating well.
--- NOTE | 2025-05-26 16:55 | PD.INTPROC ---
PROCEDURES: Procedure Date / Time 05/26/25 2322 Arterial Line Size (Gauge): 20 Bronchoscopy Bronscopy indication(s): removal of secretions Informed consent obtained from: proc. done emergently Time out done and the following verified: correct patient and procedure Oxygen delivery: 100% FIO2 Trachea: secretions noted Daniela: sharp in angle RUL & subsegmental branches: mucus plugging RML & subsegmental branches: mucus plugging RLL & subsegmental branches: mucus plugging ADIN & subsegmental branches: mucosa appears normal LLL & subsegmental branches: mucosa appears normal EBL: 0 Patient tolerated procedure: well Complications: No Procedure comment: Called to bedside by ICU team due to sudden hypoxia while on NIPPV. Asymmetric L>R excursions noted w/ near absent right sided BSs Saturation on 100%HFNC 70s% Multiple NT suctioning trials completed - with persistent hypoxia - therefore, emergently intubated. Subsequent bronchoscopy revealed thick secretions at the distal end of the ETT and trachea - this was suctioned until clear Remaining mucus plugs on right cleared with aid of saline wash (total 40ml) Patency of right sided airways confirmed post suction. The left sided airways were examined and mucosa slightly pale - but free of secretions. The bronchoscope was retracted at the procedure completed. ETT confirmed in appropriate position.
[2025-05-26] MEDS: THIAMINE INJ 100 MG in SODIUM CHLORIDE 0.9% 100 ML 202 MG IV (17:24)
--- NOTE | 2025-05-26 18:53 | ESCONSULT_ITS ---
RE: SUSAN THOMAS : 1955 DATE OF CONSULTATION: 05/25/2025 CHIEF COMPLAINT: 1. Significant nephrolithiasis status post placement of bilateral nephrostomy tubes in 09/2024. 2. Endometrial cancer in remission status post chemo and radiation. 3. Abdominal pain. COMORBID CONDITIONS: 1. Non-insulin dependent diabetes mellitus. 2. Anemia. 3. COPD. 4. Severe 10/10 abdominal pain with non-bloody vomitus. HISTORY OF PRESENT ILLNESS: This is a 70-year-old female. She has a significant medical history of nephrolithiasis. She has fever, chills, and headache. The patient is admitted in the ICU. The history is limited from the patient because of significant pain. Information is available only through her notes or from ER consult. PAST MEDICAL HISTORY: As above. PAST SURGICAL HISTORY: Status post placement of bilateral nephrostomy tube in 09/2024, appendectomy, and cholecystectomy. FAMILY HISTORY: Significant cardiac disease and lung problem. SOCIAL HISTORY: Smoking denied. Alcohol denied. Illicit drug denied. The patient lives in [place] in a [facility] unit. In the emergency room, the patient was hypotensive with blood pressure of 84/58, heart rate 72 per minute, respiration 31, and temperature of 101. Her BUN is 33, creatinine is 2.3, and GFR 22. CAT scan of the abdomen and pelvis was done. This revealed bilateral nephrostomy tubes, no hydronephrosis, acute sigmoid diverticulitis. Localized rupture of diverticula and mild pelvic pneumoperitoneum. The patient was given IV fluids and was started on ciprofloxacin and metronidazole IV. PHYSICAL EXAMINATION: GENERAL: Condition is satisfactory. The patient is lying in the bed, not in acute distress. HEENT: Normocephalic, atraumatic. Eyes: No anemia or jaundice. NECK: Supple. Trachea is central. Thyroid is not enlarged. EXTREMITIES: Revealed no edema, cyanosis, or clubbing. CHEST: Symmetrical. HEART: Regular rate and rhythm. ABDOMEN: Could not be examined because of severe pain. The patient declined permission. VARIOUS LABS: BUN is 16.3, hemoglobin is 10.2, and hematocrit 33.7. Serum sodium is 138, potassium 4.6, BUN is 33 and creatinine is 2.3. IMPRESSION: Bilateral nephrolithiasis with hydronephrosis status post placement of bilateral percutaneous nephrostomies. DIAGNOSES: 1. Septic shock. 2. Diverticulitis with a large intestinal perforation. 3. Urinary tract infection. RECOMMENDATION: Cysto, bilateral retrograde pyelogram, bilateral ureteral stent placement and removal of the bilateral nephrostomy tube. Procedure and complications are discussed. The patient will be scheduled for the same if cleared by the PCP. DT: 09:25:52 TT: 10:49:00 Ref: [id number] - TID: [id number]
[2025-05-26 21:06] LABS: Base Excess -2 (-3-3); HCO3 25 mEq/L (20-26); Inspired Oxygen, FIO2 40 %; O2 Saturation 98 % (91-98); PCO2 49 mmHg (32.0-48.0); PO2 138 mmHg (83-108); pH, Arterial 7.31 (7.35-7.45)
[2025-05-26 21:07] LABS: Allen Test Performed/OK; Puncture Site Left Radial
[2025-05-26] MEDS: HYDROCORTISONE SOD SUCC INJ 100 MG 2 ML VIAL 25 MG IV (21:52)
[2025-05-27] VITALS (112 sets, daily range): BP systolic 52–133; BP diastolic 39–79; PULSE 62–93; RESP 14–24; TEMP 36.2–37.9; O2SAT 85–99
[2025-05-27] MEDS: PROPOFOL 1,000 MG IVPB 1,000 MG/100 ML VIAL 9.852 MG IV (01:00)
[2025-05-27 04:42] LABS: Base Excess -1 (-3-3); HCO3 23 mEq/L (20-26); Inspired Oxygen, FIO2 21 %; O2 Saturation 98 % (91-98); PCO2 33 mmHg (32.0-48.0); PO2 116 mmHg (83-108); pH, Arterial 7.46 (7.35-7.45)
[2025-05-27 04:46] LABS: Allen Test Performed/OK; Puncture Site Left Radial
[2025-05-27 05:18] LABS: Lactate (Lactic Acid) 1.3 mMol/L (0.4-2.0)
[2025-05-27 05:27] LABS: Basophils # (Auto) 0.1 Thou/mm3 (0.0-0.2); Basophils % (Auto) 1 % (0-2.5); Eosinophils # (Auto) 0.0 Thou/mm3 (0.0-0.5); Eosinophils % (Auto) 0 % (0-10); Hematocrit 27.1 % (36.0-46.0); Immature Granulocytes Auto 0.84 Thou/mm3 (0.00-0.00); Lymphocytes # (Auto) 0.9 Thou/mm3 (1.0-4.8); Lymphocytes % (Auto) 5 % (10-50); Mean Corpuscular HGB Conc 31.7 g/dl (31.0-37.0); Mean Corpuscular Hemoglobin 28.1 pg (25.0-35.0); Mean Corpuscular Volume 89 fL (80-100); Monocytes # (Auto) 0.5 Thou/mm3 (0.0-0.8); Monocytes % (Auto) 3 % (0-12); Neutrophils # (Auto) 15.2 Thou/mm3 (1.8-7.7); Neutrophils % (Auto) 87 % (37-80); Nucleated Red Blood Cell # 0.29 Thou/mm3 (0.00-0.00); Nucleated Red Blood Cell % 2 /100 WBC (0); Platelet Count 171 Thou/mm3 (140-440); RDW Standard Deviation 57.6 fL (36.4-46.3); Red Blood Count 3.06 Miln/mm3 (4.00-5.20); White Blood Count 17.6 Thou/mm3 (3.6-11.0)
[2025-05-27 05:31] LABS: Hemoglobin 8.6 g/dL (12.0-16.0)
[2025-05-27] MEDS: PIPER/TAZO 3.375 GM PREMIX 3.375 GM/50 ML BAG IV ×3 (05:37→22:17)
[2025-05-27 05:53] LABS: Albumin, Serum 3.7 gm/dL (3.4-4.8); Albumin/Globulin Ratio 2.6 (1.2-2.2); Alkaline Phosphatase 109 U/L (46-116); Anion Gap 20 (7-16); Aspartate Amino Transferase 11 U/L (0-34); B-Type Natriuretic Peptide 2218 pg/mL (0-100); BUN/Creatinine Ratio 15 Ratio (12-20); Bilirubin,Total 0.6 mg/dL (0.3-1.2); Blood Urea Nitrogen 36 mg/dL (9-23); Calcium 8.4 mg/dL (8.3-10.6); Calcium (Corrected) 8.6 mg/dL (8.5-10.1); Carbon Dioxide 22.8 mMol/L (20.0-31.0); Chloride 101 mMol/L (98-107); Creatinine (Component) 2.4 mg/dL (0.6-1.3); Estimated Creatinine Clearance 21.2 mL/min (>60); Globulin 1.4 gm/dL (2.3-3.5); Glucose 105 mg/dL (74-106); Magnesium 2.0 mg/dL (1.6-2.6); Osmolality,Calculated 295 (275-295); Phosphorous 3.1 mg/dL (2.4-5.1); Potassium 3.7 mMol/L (3.4-5.1); Sodium 144 mMol/L (136-145); Total Protein 5.1 gm/dL (5.7-8.2); eGFR 21 See Note
[2025-05-27 06:02] LABS: Alanine Aminotransferase 7 U/L (10-49)
--- NOTE | 2025-05-27 08:00 | ESPR_ITS ---
Documentation for date of: 05/27/25 Subjective Subjective Interval history: Reason for consult: Oliguria/Anuria - WARREN in ICU patient post-septic shock and exploratory lap History of present illness: 70-year-old female with a history of nephrolithiasis (s/p bilateral nephrostomy tubes placed Sep 2024), endometrial cancer in remission, type 2 diabetes mellitus, chronic anemia, and COPD, admitted with perforated sigmoid diverticulitis and feculent peritonitis. She underwent exploratory laparotomy, sigmoid colectomy with end descending colostomy, and hysterectomy on 05/17. Nephrology was re-consulted today for no urine output. Overnight urine output was 50 cc total, despite adequate fluid resuscitation and pressor support (on norepinephrine and vasopressin). Patient remains in the ICU, intubated and sedated on propofol/fentanyl, receiving broad-spectrum antibiotics (ciprofloxacin + metronidazole). 05/18/2025: Patient seen in ICU during morning rounds. Intubated, sedated, on vasopressor support. No urine output noted from nephrostomy tubes or Bal. Nursing reports total 50 cc output overnight. No new fevers reported. BP 112/57 mmHg, HR 82. Labs: WBC 18.6, Hgb 10.4, Hct 31.6, Plt 106 (yesterday 419), Na 136, K 5.4, Cl 108, CO2 13.4, BUN 40, Cr 2.5 (GFR 20), Ca 8.8, Phos 6.0, Mg 2.1, Albumin 2.7, Alk Phos 176, Lactic acid 3.0->3.2. ABG: pH 7.30, pCO2 32, HCO3 13. 05/27/2025 patient currently seen in ICU. Patient got reintubated. Yesterday she had a bronchoscopy and mucous plugs removed by Dr. Robles. On ventilator. Patient more alert and awake. Nephrostomy tubes have been leaking. Pending replacement. She had a sigmoid resection and colostomy with liquidy stool. Labs, medications reviewed. Spoke to Dr. Robles at bedside. Will do conventional dialysis with sequential ultrafiltration today due to volume overload Review of Systems Review of Systems ROS Unobtainable: unobtainable due to medical condition and due to endotracheal tube Exam Vital Signs Temp Pulse Resp BP Pulse Ox O2 Del Method O2 Flow Rate 36.3 C 73 18 113/67 99 Mechanical Ventilation 2 05/27/25 04:00 05/27/25 06:49 05/27/25 06:49 05/27/25 06:49 05/27/25 06:49 05/27/25 04:00 05/26/25 14:12 FiO2 30 05/27/25 06:49 Narrative Exam General: No acute distress; A&Ox3; intubated, mechanically ventilated Skin: Warm, dry, intact, flaky skin b/l lower extremities, no obvious rash. HENT: NCAT, EOMI/PERRL, not icteric. External ears normal. No rhinorrhea. Moist mucous membranes; RIJ central line in place. Cardiovascular: Regular rate and rhythm, no murmur, +S1/S2; chemo port R chest Respiratory: R sided wheeze, L sided rhonchi GI: Soft, tender, non-distended. No guarding or rebound tenderness. Abdominal wound dressed, clean, dry, intact : No suprapubic tenderness. No flank tenderness bilaterally. Nephrostomy tubes bilateral Extremities: 2+ bilateral lower extremity pitting edema, no cyanosis, no clubbing. Extremity pulses present, no mottling. Neuro: Grossly nonfocal. Moving all 4 extremities. CN not formally tested but appear grossly intact. Objective Labs 05/28/25 05:20 05/28/25 05:20 Labs: Laboratory Results - last 24 hr 05/26/25 05/26/25 05/26/25 10:45 15:48 20:51 WBC RBC Hgb Hct MCV MCH MCHC RDW Std Deviation Plt Count Neut % (Auto) Lymph % (Auto) [place] % (Auto) Eos % (Auto) Baso % (Auto) Neut # (Auto) Lymph # (Auto) [place] # (Auto) Eos # (Auto) Baso # (Auto) Immature Gran # (Auto) Absolute Nucleated RBC Immature Gran % Nucleated RBC % Puncture Site Right Radial Left Radial ABG pH 7.29 L 7.31 L ABG pCO2 53 H 49 H ABG pO2 90 D 138 H D ABG HCO3 25 25 ABG O2 Saturation 97 98 ABG Base Excess -2 -2 FiO2 50 40 Sodium Potassium Chloride Carbon Dioxide Anion Gap BUN Creatinine Estim Creat Clear Calc eGFR BUN/Creatinine Ratio Glucose Calculated Osmolality Lactic Acid 0.7 Calcium Corrected Calcium Phosphorus Magnesium Total Bilirubin AST ALT Alkaline Phosphatase B-Natriuretic Peptide Total Protein Albumin Globulin Albumin/Globulin Ratio 10/25/25 10/25/25 04:34 04:49 WBC 17.6 H RBC 3.06 L Hgb 8.6 L Hct 27.1 L MCV 89 MCH 28.1 MCHC 31.7 RDW Std Deviation 57.6 H Plt Count 171 Neut % (Auto) 87 H Lymph % (Auto) 5 L [place] % (Auto) 3 Eos % (Auto) 0 Baso % (Auto) 1 Neut # (Auto) 15.2 H Lymph # (Auto) 0.9 L [place] # (Auto) 0.5 Eos # (Auto) 0.0 Baso # (Auto) 0.1 Immature Gran # (Auto) 0.84 H Absolute Nucleated RBC 0.29 H Immature Gran % 5 H Nucleated RBC % 2 H Puncture Site Left Radial ABG pH 7.46 H D ABG pCO2 33 D ABG pO2 116 H D ABG HCO3 23 ABG O2 Saturation 98 ABG Base Excess -1 FiO2 21 Sodium 144 Potassium 3.7 Chloride 101 Carbon Dioxide 22.8 Anion Gap 20 H BUN 36 H Creatinine 2.4 H Estim Creat Clear Calc 21.2 L eGFR 21 L BUN/Creatinine Ratio 15 Glucose 105 Calculated Osmolality 295 Lactic Acid 1.3 Calcium 8.4 Corrected Calcium 8.6 Phosphorus 3.1 Magnesium 2.0 Total Bilirubin 0.6 AST 11 ALT 7 L Alkaline Phosphatase 109 B-Natriuretic Peptide 2218 H* Total Protein 5.1 L Albumin 3.7 Globulin 1.4 L Albumin/Globulin Ratio 2.6 H ABG Interpretation ABG results: 05/16/25 05/16/25 05/16/25 12:11 18:26 19:18 ABG pH 7.41 ABG pCO2 29 L ABG pO2 86 ABG HCO3 18 L ABG O2 Saturation 96 ABG Base Excess -6 L VBG pH 7.26 L 7.36 VBG pCO2 36 32 L VBG pO2 49 46 VBG Base Excess -10 L -7 L 05/17/25 05/17/25 05/17/25 01:51 01:58 12:35 ABG pH 7.34 L 7.21 L D ABG pCO2 30 L 30 L ABG pO2 92 181 H D ABG HCO3 16 L 12 L ABG O2 Saturation 97 99 H ABG Base Excess -9 L -15 L VBG pH 7.28 L VBG pCO2 37 VBG pO2 60 H VBG Base Excess -9 L 05/17/25 05/17/25 05/18/25 15:12 22:59 04:06 ABG pH 7.17 L* 7.26 L 7.23 L ABG pCO2 32 26 L 32 ABG pO2 343 H D 298 H D 208 H D ABG HCO3 12 L 12 L 13 L ABG O2 Saturation 100 H 100 H 100 H ABG Base Excess -16 L -14 L -13 L VBG pH VBG pCO2 VBG pO2 VBG Base Excess 05/18/25 05/19/25 05/20/25 12:10 07:13 17:49 ABG pH 7.49 H D ABG pCO2 35 ABG pO2 126 H D ABG HCO3 26 ABG O2 Saturation 99 H ABG Base Excess 3 VBG pH 7.23 L 7.57 VBG pCO2 35 L 35 L VBG pO2 173 H D 36 D VBG Base Excess -12 L 10 H 05/21/25 05/22/25 05/25/25 10:08 04:59 07:52 ABG pH 7.45 7.44 7.33 L ABG pCO2 34 32 49 H ABG pO2 70 L D 140 H D 173 H ABG HCO3 24 22 26 ABG O2 Saturation Not Performed. 99 H 98 ABG Base Excess 0 -2 0 VBG pH VBG pCO2 VBG pO2 VBG Base Excess 05/26/25 05/26/25 05/26/25 00:20 07:28 15:48 ABG pH 7.20 L D 7.32 L D 7.29 L ABG pCO2 67 H D 51 H D 53 H ABG pO2 180 H 260 H D 90 D ABG HCO3 26 27 H 25 ABG O2 Saturation 100 H 99 H 97 ABG Base Excess -3 0 -2 VBG pH VBG pCO2 VBG pO2 VBG Base Excess 05/26/25 05/27/25 20:51 04:34 ABG pH 7.31 L 7.46 H D ABG pCO2 49 H 33 D ABG pO2 138 H D 116 H D ABG HCO3 25 23 ABG O2 Saturation 98 98 ABG Base Excess -2 -1 VBG pH VBG pCO2 VBG pO2 VBG Base Excess Assessment & Plan Assessment and plan (1) Diverticulitis of large intestine with perforation without abscess or bleeding: Status: Acute Additional Assessment & Plan Additional Plan: 70F with septic shock post-surgery, now anuric with worsening WARREN likely multifactorial (septic ATN ? obstructive from non-draining nephrostomy tubes). Given persistent anuria, rising azotemia, and metabolic acidosis, patient will undergo dialysis today. # Acute Kidney Injury Likely ischemic ATN Plan: * Patient currently seen on dialysis. Tolerating dialysis without any problems. Sequential ultrafiltration 3 hours, ultrafiltration 2-3 L, Epogen 6000, no heparin ordered. Plan of care discussed with the dialysis nurse. Please see dialysis flowsheet for further details. * Continue daily renal panel and strict I&O. * Avoid nephrotoxins, renally dose antibiotics. * Continue to assess for renal recovery post-dialysis. # Septic Shock Post-op from perforated diverticulitis, on norepinephrine and vasopressin. Plan: * Continue broad-spectrum antibiotics (Cipro + Flagyl). * Maintain perfusion pressure for renal support. * Trend lactate and hemodynamics throughout dialysis. Other problems: #Diverticulitis of large intestine with perforation (s/p exploratory laparotomy, sigmoid colectomy, colostomy, hysterectomy on 05/17) #Postoperative state (post-surgical, day 1) #Leukocytosis #Normocytic anemia #Thrombocytopenia #Lactic acidosis #Hyponatremia #Presence of nephrostomy tubes bilaterally #Presence of colostomy #Type 2 diabetes mellitus (controlled, A1C 5.2) #COPD #Endometrial cancer, in remission #Mechanical ventilation dependence Care discussed with ICU team. PROCEDURES: Arterial Line Size (Gauge): 20
--- NOTE | 2025-05-27 08:08 | PD.SURPROG ---
Documentation for date of: 05/27/25 Subjective Subjective Brief History: Only Narrative: Patient is seen and examined in ICU. She was unable to maintain her airway and had to be reintubated. Colostomy continues to function Exam Vital Signs Temp Pulse Resp BP Pulse Ox O2 Del Method O2 Flow Rate 97.3 F 73 18 113/67 99 Mechanical Ventilation 2 05/27/25 04:00 05/27/25 06:49 05/27/25 06:49 05/27/25 06:49 05/27/25 06:49 05/27/25 04:00 05/26/25 14:12 FiO2 30 05/27/25 06:49 Constitutional Comments: Intubated and sedated Routine Abdominal Exam Comments: Abdomen is soft and nondistended. Incision is intact without evidence of infection, has some clear drainage. Colostomy is present, patent and productive with small area mucocutaneous disruption Assessment & Plan Assessment Additional comments: status post exploratory laparotomy with sigmoid colectomy, end colostomy and hysterectomy Plan Care was discussed with Dr. Robles, continue care per ICU team. May start tube feeding PROCEDURES: Procedures Exploratory laparotomy, sigmoid colectomy with end descending colostomy Hysterectomy
[2025-05-27] MEDS: HYDROCORTISONE SOD SUCC INJ 100 MG 2 ML VIAL 25 MG IV ×2 (09:42→20:43)
[2025-05-27] MEDS: HEPARIN SOD INJ 5000 UNIT/ML VIAL SC ×2 (09:43→20:42)
[2025-05-27] MEDS: THIAMINE INJ 100 MG/ML VIAL 2 ML IVP (09:43)
[2025-05-27] MEDS: ALBUMIN HUMAN-KJDA 25% IVPB 25 GM/100 ML BTL IV (10:45)
[2025-05-27] MEDS: fentaNYL CIT INJ 50 mCg/ML AMP 2ML 25 MCG IVP ×2 (11:21→20:26)
--- NOTE | 2025-05-27 11:22 | ESPR_ITS ---
<Statement entered by Kelsey Robles MD - 05/28/25 12:13> TOTAL CC TIME: 45 MIN I saw and evaluated the patient. I reviewed the resident?s note and agree with findings and plan as documented in the resident?s note. Upon my evaluation, this patient had a high probability of imminent or life- threatening deterioration due to hypotension, renal failure, hypoxic respiratory failure which required my direct attention, intervention, and personal management. This time is exclusive of time spent on procedures, which are documented separately if performed. Still requiring Levophed when on hemodialysis 1.6 L removed Will have to hold off on removal of nephrostomy tubes and stent placements given current condition Suspect leukocytosis is due to D marginalization from steroids continue to monitor. No fevers Will have family conference to discuss overall prognosis in the setting of renal failure, nephrostomy tubes, or recurrence of endometrial cancer, and severe respiratory weakness. <Statement entered by Martir Manning MD - 05/27/25 12:00> Patient was seen and examined in the ICU. No acute overnight events were reported. This morning, patient was weaned off from sedation with drip and will be continued on IV fentanyl 25 mg for moderate pain and IV fentanyl 50 mg for severe pain as needed. Patient's son will be arriving this evening for goals of care discussion so likely will discuss with him in the morning regarding overall plan and prognosis. Vent settings were adjusted with tidal volume 400 and respiratory rate 16. We adjusted the volume as 7 mL/kg. Will likely perform discussion with the patient's son that patient has poor cough reflex with poor inspiratory effort and overall weakness due to history of cancer and explorative laparotomy recently therefore she has slow recovery and will need LTAC moving forward as she will be able to come out of intubation and will likely need tracheostomy and as patient is also on dialysis and not making much urine she would need to have continued dialysis as well. Nephrostomy tubes were scheduled to be replaced on 05/31 per urology recs but due to patient's declining condition they have not plan to perform that that will be brought up in the discussion with the patient's son. CODE STATUS will be also discussed in goals of care tomorrow. I discussed and supervised with the marketing research intern physician who took care of this patient. I personally saw and examined the patient. I agree with most of the assessment and plan. Disclaimer: Despite multiple revisions, due to the dictation software being used, the document bellow may not be free of grammatical errors including phonetic/typographic errors. However, this does not deter from our commitment to providing health care in the patient's best interest in mind. Plan of care discussed with attending Physician Dr. Margaret Manning MD PGY-3 Documentation for date of: 05/27/25 Subjective Subjective Interval history: History of Present Illness: 70-year-old female with a history of nephrolithiasis (status post bilateral nephrostomy tubes in September 2024), endometrial cancer, type 2 diabetes mellitus, and chronic anemia, presented with severe abdominal pain, vomiting, fever, and chills. Patient was found to have acute sigmoid diverticulitis complicated by localized perforation and sepsis, necessitating ICU admission for pressors. Patient is post-operative day 8 following an exploratory laparotomy, sigmoid colectomy with end descending colostomy, and hysterectomy. ICU team was consulted by the primary team after the patient experienced an episode of desaturation, with O2 saturation dropping to 77% accompanied by coughing. Patient was promptly placed on an oxymask, and a chest X-ray was obtained, revealing a mucus plug in the left mainstem bronchus with associated atelectasis. Despite attempts at non-invasive nasotracheal suctioning and chest physiotherapy, the patient showed no improvement. Proceeded to bronchoalveolar lavage to clear the mucus plugs, which the patient tolerated well. Interval History: 05/26/2025: Overnight, patient continued on noninvasive positive pressure ventilation, alternating every 4 hours on and off. Patient began desaturating to 60% on nasal cannula. A transition was made to an Oxymask at 15L, with no improvement. ABG obtained at 12:20 AM revealed a pH of 7.20 and a pCO2 of 67. Patient was started on BiPAP at 1:30 AM. A repeat ABG at 7:28 AM showed improvement, with a pH of 7.32 and pCO2 of 51. Patient had 150 cc of urine in the nephrostomy bag and 125 cc in the colostomy. Patient remained afebrile and continued on BiPAP due to bilateral atelectasis. Lactic acid remained within normal limits. Patient's blood pressure was soft this morning. A [id number] ultrasound of the IVC showed an enlarged, dilated, and minimally collapsible IVC, indicating the need for fluid removal to improve blood pressure. Patient underwent hemodialysis, successfully removing 1L of fluid. Although the goal was to remove 2L, the procedure was stopped after the patient?s oxygen sat dropped into the 70s on BiPAP. A transition to high-flow nasal cannula did not show improvement, and oxygen saturation remained in the 70s. On exam, patient was only expanding the left side of the chest during inspiration. Bagging was initiated. Patient was instructed to cough to mobilize the mucus plug, but was too weak to do. Patient was intubated for acute hypoxic respiratory failure. A bronchoalveolar lavage was performed to clear the mucus plug in the right lower lung. Following intubation, care was transferred to the ICU. Patient was started on Levophed 0.05 for hypotension. Primary team contacted the patient's son, Kwadwo, to provide update on patient's overall condition. ICU team also reached out to update him on the patient's recent intubation. He plans to fly and arrive at the hospital by this weekend. At this time patient remains full code. 05/27/2025: Overnight patient had no acute overnight events. Patient was noted to have minimal leaking of fluid around sides of nephrostomy tubes. This morning patient is alert and oriented x3. Patient is nodding yes and no along with writing with pencil on paper to communicate. Endorses some abdominal pain, has pain medication prn. Patient's vitals have been stable this morning, saturating well on mechanical ventilation FiO2 of 30%. Patient had 1.6L removed today during dialysis with 40 ml urine output last 24hrs. Patient currently being weaned off of sedation with prn sedation scheduled as needed. Patient still not able to adequately protect her airway and will continue to be mechanically ventilated at this point. Patient's son was contacted and is planning to visit her in the hospital in the morning on 05/28. Later in the day, patient was noted to have brown liquid leaking out when her abdominal incision was pressed, surgery notified. Exam Vital Signs Temp Pulse Resp BP Pulse Ox O2 Del Method O2 Flow Rate 98.8 F 77 18 91/58 L 99 Mechanical Ventilation 2 05/27/25 09:35 05/27/25 11:15 05/27/25 09:35 05/27/25 11:15 05/27/25 10:25 05/27/25 08:00 05/27/25 09:35 FiO2 30 05/27/25 10:25 Narrative Exam General: No acute distress; A&Ox3; intubated, mechanically ventilated Skin: Warm, dry, intact, flaky skin b/l lower extremities, no obvious rash. HENT: NCAT, EOMI/PERRL, not icteric. External ears normal. No rhinorrhea. Moist mucous membranes; RIJ central line in place. Cardiovascular: Regular rate and rhythm, no murmur, +S1/S2; chemo port R chest Respiratory: R sided wheeze, L sided rhonchi GI: Soft, tender, non-distended. No guarding or rebound tenderness. Abdominal wound dressed, clean, dry, intact : No suprapubic tenderness. No flank tenderness bilaterally. Nephrostomy tubes bilateral Extremities: 2+ bilateral lower extremity pitting edema, no cyanosis, no clubbing. Extremity pulses present, no mottling. Neuro: Grossly nonfocal. Moving all 4 extremities. CN not formally tested but appear grossly intact. Psychiatric: Cooperative, appropriate affect. Objective Labs 05/27/25 04:49 05/27/25 04:49 Labs: Laboratory Results - last 24 hr 05/26/25 05/26/25 05/27/25 15:48 20:51 04:34 WBC RBC Hgb Hct MCV MCH MCHC RDW Std Deviation Plt Count Neut % (Auto) Lymph % (Auto) [place] % (Auto) Eos % (Auto) Baso % (Auto) Neut # (Auto) Lymph # (Auto) [place] # (Auto) Eos # (Auto) Baso # (Auto) Immature Gran # (Auto) Absolute Nucleated RBC Immature Gran % Nucleated RBC % Puncture Site Right Radial Left Radial Left Radial ABG pH 7.29 L 7.31 L 7.46 H D ABG pCO2 53 H 49 H 33 D ABG pO2 90 D 138 H D 116 H D ABG HCO3 25 25 23 ABG O2 Saturation 97 98 98 ABG Base Excess -2 -2 -1 FiO2 50 40 21 Sodium Potassium Chloride Carbon Dioxide Anion Gap BUN Creatinine Estim Creat Clear Calc eGFR BUN/Creatinine Ratio Glucose Calculated Osmolality Lactic Acid Calcium Corrected Calcium Phosphorus Magnesium Total Bilirubin AST ALT Alkaline Phosphatase B-Natriuretic Peptide Total Protein Albumin Globulin Albumin/Globulin Ratio 05/27/25 04:49 WBC 17.6 H RBC 3.06 L Hgb 8.6 L Hct 27.1 L MCV 89 MCH 28.1 MCHC 31.7 RDW Std Deviation 57.6 H Plt Count 171 Neut % (Auto) 87 H Lymph % (Auto) 5 L [place] % (Auto) 3 Eos % (Auto) 0 Baso % (Auto) 1 Neut # (Auto) 15.2 H Lymph # (Auto) 0.9 L [place] # (Auto) 0.5 Eos # (Auto) 0.0 Baso # (Auto) 0.1 Immature Gran # (Auto) 0.84 H Absolute Nucleated RBC 0.29 H Immature Gran % 5 H Nucleated RBC % 2 H Puncture Site ABG pH ABG pCO2 ABG pO2 ABG HCO3 ABG O2 Saturation ABG Base Excess FiO2 Sodium 144 Potassium 3.7 Chloride 101 Carbon Dioxide 22.8 Anion Gap 20 H BUN 36 H Creatinine 2.4 H Estim Creat Clear Calc 21.2 L eGFR 21 L BUN/Creatinine Ratio 15 Glucose 105 Calculated Osmolality 295 Lactic Acid 1.3 Calcium 8.4 Corrected Calcium 8.6 Phosphorus 3.1 Magnesium 2.0 Total Bilirubin 0.6 AST 11 ALT 7 L Alkaline Phosphatase 109 B-Natriuretic Peptide 2218 H* Total Protein 5.1 L Albumin 3.7 Globulin 1.4 L Albumin/Globulin Ratio 2.6 H ABG Interpretation ABG results: 05/16/25 05/16/25 05/16/25 12:11 18:26 19:18 ABG pH 7.41 ABG pCO2 29 L ABG pO2 86 ABG HCO3 18 L ABG O2 Saturation 96 ABG Base Excess -6 L VBG pH 7.26 L 7.36 VBG pCO2 36 32 L VBG pO2 49 46 VBG Base Excess -10 L -7 L 05/17/25 05/17/25 05/17/25 01:51 01:58 12:35 ABG pH 7.34 L 7.21 L D ABG pCO2 30 L 30 L ABG pO2 92 181 H D ABG HCO3 16 L 12 L ABG O2 Saturation 97 99 H ABG Base Excess -9 L -15 L VBG pH 7.28 L VBG pCO2 37 VBG pO2 60 H VBG Base Excess -9 L 05/17/25 05/17/25 05/18/25 15:12 22:59 04:06 ABG pH 7.17 L* 7.26 L 7.23 L ABG pCO2 32 26 L 32 ABG pO2 343 H D 298 H D 208 H D ABG HCO3 12 L 12 L 13 L ABG O2 Saturation 100 H 100 H 100 H ABG Base Excess -16 L -14 L -13 L VBG pH VBG pCO2 VBG pO2 VBG Base Excess 05/18/25 05/19/25 05/20/25 12:10 07:13 17:49 ABG pH 7.49 H D ABG pCO2 35 ABG pO2 126 H D ABG HCO3 26 ABG O2 Saturation 99 H ABG Base Excess 3 VBG pH 7.23 L 7.57 VBG pCO2 35 L 35 L VBG pO2 173 H D 36 D VBG Base Excess -12 L 10 H 05/21/25 05/22/25 05/25/25 10:08 04:59 07:52 ABG pH 7.45 7.44 7.33 L ABG pCO2 34 32 49 H ABG pO2 70 L D 140 H D 173 H ABG HCO3 24 22 26 ABG O2 Saturation Not Performed. 99 H 98 ABG Base Excess 0 -2 0 VBG pH VBG pCO2 VBG pO2 VBG Base Excess 05/26/25 05/26/25 05/26/25 00:20 07:28 15:48 ABG pH 7.20 L D 7.32 L D 7.29 L ABG pCO2 67 H D 51 H D 53 H ABG pO2 180 H 260 H D 90 D ABG HCO3 26 27 H 25 ABG O2 Saturation 100 H 99 H 97 ABG Base Excess -3 0 -2 VBG pH VBG pCO2 VBG pO2 VBG Base Excess 05/26/25 05/27/25 20:51 04:34 ABG pH 7.31 L 7.46 H D ABG pCO2 49 H 33 D ABG pO2 138 H D 116 H D ABG HCO3 25 23 ABG O2 Saturation 98 98 ABG Base Excess -2 -1 VBG pH VBG pCO2 VBG pO2 VBG Base Excess Quality Measures Quality Measures VTE prophylaxis Advance care planning discussed with:: patient Assessment & Plan Assessment Current Active Medications: Generic Name Dose Route Start Last Admin Trade Name Freq PRN Reason Stop Dose Admin Fentanyl Citrate 50 mcg 05/27/25 08:48 Fentanyl Cit Inj 50 Mcg/Ml Amp 2ml IVP 06/01/25 08:47 Q6HR PRN Severe pain 7-10 Fentanyl Citrate 25 mcg 05/27/25 08:48 05/27/25 11:21 Fentanyl Cit Inj 50 Mcg/Ml Amp 2ml IVP 06/01/25 08:47 25 mcg Q6HR PRN Administration Moderate pain 4-7 Gabapentin 300 mg 05/26/25 21:00 05/26/25 21:47 Gabapentin 300 Mg Capsule NG 06/25/25 20:59 Not Given HS JESSICA Heparin Sodium (Porcine) 2,600 unit 05/23/25 19:07 05/25/25 12:05 Heparin Sod Inj 1000 Unit/Ml Vial 10 Ml INDWELLCAT 06/06/25 19:06 2,600 unit PRN PRN Administration DIALYSIS Heparin Sodium (Porcine) 5,000 unit 05/24/25 09:00 05/27/25 09:43 Heparin Sod Inj 5000 Unit/Ml Vial SC 06/07/25 08:59 5,000 unit Q12HR JESSICA Administration Hydrocortisone Sodium Succinate 25 mg 05/26/25 21:00 05/27/25 09:42 Hydrocortisone Sod Succ Inj 100 Mg 2 Ml Vial IV 06/25/25 20:59 25 mg BID JESSICA Administration Piperacillin/Tazobactam/Dextrose 3.375 gm in 50 mls @ 12.5 mls/hr 05/22/25 22:30 05/27/25 05:37 Zosyn IV 05/28/25 17:59 12.5 mls/hr Q8HR JESSICA Administration Protocol Norepinephrine/Dextrose 8 mg in 250 mls @ 7.697 mls/hr 05/26/25 14:52 05/27/25 10:00 Levophed In D5w 8mg/250ml IV 06/25/25 14:51 0.11 mcg/kg/min .Q24H PRN 16.933 mls/hr PER PROTOCOL Titration Protocol 0.05 MCG/KG/MIN Albumin Human 25 gm in 100 mls @ 100 mls/hr 05/27/25 10:38 05/27/25 10:45 Albuminex 25% Ivpb IV 100 mls/hr PRN PRN Administration DIALYSIS Ipratropium [place] 0.5 mg 05/25/25 07:28 Ipratropium Rt 0.5 Mg/ 2.5 Ml Nebu INH 06/24/25 07:27 Q6HR PRN SHORTNESS OF BREATH Levalbuterol HCl 0.63 mg 05/25/25 07:28 Levalbuterol Rt 0.63 Mg/3 Ml Nebu INH 06/24/25 07:27 Q6HR PRN WHEEZING Melatonin 3 mg 05/26/25 21:00 05/26/25 21:48 Melatonin 3 Mg Tablet NG 06/25/25 20:59 Not Given HS [facility] Ondansetron HCl 4 mg 05/16/25 18:34 05/17/25 09:51 Ondansetron Inj 2 Mg/Ml Inj 2 Ml IVP 06/15/25 18:33 4 mg Q6H PRN Administration NAUSEA OR VOMITING Protocol Pantoprazole Sodium 40 mg 05/17/25 09:00 05/27/25 09:43 Pantoprazole Inj 40 Mg Vial IVP 06/16/25 08:59 40 mg QDAY JESSICA Administration Pharmacy Consult 1 each 05/16/25 16:37 Pharmacy Renal Dose Adjustment 1 Ea XX 06/15/25 16:36 PRN PRN CONSULT Thiamine HCl 100 mg 05/27/25 09:00 05/27/25 09:43 Thiamine Inj 100 Mg/Ml Vial 2 Ml IVP 06/26/25 08:59 100 mg QDAY [facility] Administration Plan 70-year-old female with history of nephrolithiasis (s/p bilateral nephrostomy tubes Sep 2024), endometrial cancer in remission, T2DM, and chronic anemia presenting with severe abdominal pain, vomiting, fever, and chills, found to have acute sigmoid diverticulitis with localized perforation and sepsis requiring ICU admission. S/p exploratory laparotomy, sigmoid colectomy with end descending colostomy and hysterectomy on 05/17. S/p intubation 05/26 for respiratory decompensation due to mucous plugs. Neurology #Chemical sedation weaned off of sedation drip PRN fentanyl 25 for moderate pain; prn fentanyl 50 mcg IVP for severe pain #Post-operative pain Treatment Plan: - Gabapentin 300 mg PO HS. - Hydromorphone 1 mg Q3HR PRN breakthrough pain. Cardiovascular #Shock DDx: Right ventricular fluid overload vs septic shock Diagnostic Test: - Point of care ultrasound 05/26: enlarged, dilated, and minimally collapsible IVC. Indicating fluid removal needed. - Improved blood pressure with hemodialysis today with removal of 1L of fluid. - 05/27: WBC uptrended to 17.6 (10.8 two days ago) - BNP 2218 Treatment Plan: - Continuing Levophed 0.05 for hypotension. - Continue to taper stress steroid dose - hydrocortisone: 25 mg IV Q12H (50 mg total) for 2 days (05/26-05/27), then 25 mg IV daily for 2 days (05/28-05/29) then stop. (stress steroid dose taper from septic shock on admission). - Maintain an adequate blood pressure (MAP target 65-70). - Monitor hemodynamics closely and adjust vasopressor therapy as needed. Respiratory #Mechanical Ventilation #Acute hypoxic respiratory failure. Likely due to mucous plug. Diagnostic Test: - CXR 05/25: left lung mucous plug in the mainstem bronchus with atelectasis. - CXR 05/26: bibasilar pneumonia. - Patient has poor inspiratory effort and weakness and was unable to cough to remove mucous plug. - ABG 05/27 7.46 pH, 33 pco2, 116 po2, 23 bicarb Treatment review (completed) - Bronchoscopy performed on 05/25 to clear mucous plug in left lower lobe. - Reintubated on 05/26. - Bronchoscopy performed on 05/26 to clear mucous plug and secretions from right lower lobe. Treatment Plan: - Continuing mechanical ventilation as patient has poor ability to deal with secretions, poor cough reflex, poor inspiratory effort i/s/o recent surgery. - 05/25 bronchoscopy culture pending. - MV settings: VT 400 (440), FIO2 30, PEEP 8.0, RR 16 (18) GI, , F/E/N #Perforated sigmoid diverticulitis with feculent peritonitis (post-op day 10) S/p exploratory laparotomy, sigmoid colectomy with end descending colostomy and hysterectomy on 05/17. Diagnostic Test: - CT abd/pelvis: acute sigmoid diverticulitis with localized rupture of diverticula and mild pelvic pneumoperitoneum. - Surgery findings: inflamed and thickened sigmoid with large perforation and feculent peritonitis. Inflamed and necrotic appearing uterus. Very thin anterior abdominal fascia with evidence of multiple mesh placements from prior operations. - Pathology report 05/16: uterus - endometroid carcinoma with extensive necrosis with negative surgical margins. Sigmoid colon - extensive diverticulosis with perforation and inflammation. - 05/27: Later in the day, patient was noted to have brown liquid leaking out when her abdominal incision was pressed, surgery notified. Treatment Review (completed) - Trophic feeds (05/22 - 05/23). Treatment Plan: - Ondansetron 4mg IV Q6H PRN for nausea. - Monitor colostomy bag for activity. - Started tube feeds of Nepro, per Continuous Drier Helper recommendations #History of endometrial cancer #Recurrent endometrial cancer Diagnostic Test: - Pathology report 05/16: uterus - endometroid carcinoma with extensive necrosis with negative surgical margins. - Patient is a poor candidate for immunosuppresants given patient may be septic currently, has bilateral nephrostomy tubes, may need a CT if hydronephrosis is worsening, currently being ventilated, may need to have PEG tube with tracheostomy in future (which would be a further increased risk of infection). Treatment Plan: - Being followed with Rad/Onc in [place]. Renal #Acute kidney injury DDx: hypoperfusion vs sepsis vs obstrutive component from nephrostomy tubes. Diagnostic Test: - Baseline Cr: 0.8-1.3. - Cr 2.3 on admission. - CT abd/pelvis: Bilateral nephrostomy ureteral catheter. Treatment Review (completed) - Started Tablo/[employer] on 05/19 - 05/20. - HD with removal of 1L on 05/26; 1.6L removed 05/27 with 40 ml urine output last 24hrs Treatment Plan: - Daily renal panel to trend Cr. - Avoid nephrotoxins. - Renally dose meds as appropriate. - Strict I&Os, monitor urine output closely. #Isolated elevated Anion Gap Likely due to increase in unmeasured acids i/s/o acute renal failure Dx: -AGAP of 20 with normal bicarb of 22.8 and lactic acid of 1.3 Rx: -Will trend AG with cmp; no acute treatment needed at this time #Hematuria Diagnostic Test: - UA: RBC 54. Treatment Plan: - Follow-up outpatient with urology to work-up hematuria. #Obstrutive nephrolithiasis s/p nephrostomy tube Patient's nephrostomy tubes have been leaking urine from attachment site. Treatment Plan: - Dr. Woody?(urologist) plans to replace tubes on 05/31. NPO after midnight on 05/31. Heme #Leukocytosis With the acute rise in the last 24 hours, less likely from stress dose steroids which have been tapering for over 1 week now. May be due to infection vs inflammation vs acute stress given recent respiratory decompensation from mucous plugging. Infection sources are lung pathology vs possible Dx: -WBC 17.6 <- 15.5 <- 10.8 -patient has been afebrile Rx: -On zosyn through 05/28 #Normocytic anemia DDx: anemia of chronic disease vs iron-deficiency anemia vs reactive. Diagnostic Test: - Hemoglobin 8.6 Treatment Plan: - Peripheral blood smear pending. - Haptoglobin levels pending to evaluate for hemolysis. - Monitor CBC. Endo #Noninsulin dependent T2DM Diagnostic Test: - Hemoglobin A1c on 05/12/2025 was 5.2. Treatment Plan: - Continue to check blood glucose levels as diet has been restarted. - Will start insulin if need better glycemic control. ID #E. Coli urinary tract infection Diagnostic Test: - Urinalysis: blood 2+, RBC 54, WBC 1069, bacteria 4+, positive leukocyte esterase. - Patient has history of positive UAs. - 10/31/24 urine culture: Klebsiella. Started Ciprofloxacin 400 mg. - Urine culture 05/16 showed E. Coli. Treatment Review (completed): - Ciprofloxacin (05/17-05/19). Treatment Plan: - Zosyn dosing per pharmacy for E.coli on urine culture (05/19-05/28). Health Maintenance: DVT prophylaxis: heparin 5000 SC. GI prophylaxis: Pantoprazole 40 mg IV daily. Diet: Tube feeds Bal: none Lines: right IJ dialysis cath. Drips: levophed .05 Vent: MV, reintubated 05/26. CODE STATUS: FULL CODE Patient plan of care was discussed with the attending physician, Dr. Robles & senior resident Dr. Kerri Goss MD PGY-1
[2025-05-27] MEDS: HEPARIN SOD INJ 1000 UNIT/ML VIAL 10 ML 2600 UNIT INDWELLCAT (12:22)
--- NOTE | 2025-05-27 14:49 | PC.SS ---
SS update: patient remains intubated, family will be at bedside, goals of care meeting will be held.
[2025-05-27] MEDS: Norepinephrine/D5W 8mg/250ml 8 MG/250 ML BAG 10.776 MG IV (17:00)
--- NOTE | 2025-05-27 18:00 | PC.NURSE ---
Thin yellow liquid leaking from midline abdominal surgical incision. Doctors Jadon Manning and Johnson notified and took pictures of site to send to Dr Fuentes. Dr Fuentes later came to beside to assess incision. Stated clear yellow liquid was normal output for abdominal incision. RN notified Dr Fuentes of leaking around stoma on 05/23. Dr Fuentes expressed he was not concerned about either sites.
[2025-05-27] MEDS: LEVALBUTEROL RT 0.63 MG/3 ML NEBU INH (18:35)
[2025-05-27] MEDS: IPRATROPIUM RT 0.5 MG/ 2.5 ML NEBU INH (18:35)
[2025-05-27] MEDS: GABAPENTIN 300 MG CAPSULE NG (20:42)
[2025-05-27] MEDS: MELATONIN 3 MG TABLET NG (20:43)
[2025-05-28] VITALS (100 sets, daily range): BP systolic 71–131; BP diastolic 46–99; PULSE 68–217; RESP 16–25; TEMP 36.3–36.7; O2SAT 90–100
[2025-05-28] MEDS: fentaNYL CIT INJ 50 mCg/ML AMP 2ML IVP ×3 (02:47→17:37)
[2025-05-28 05:55] LABS: Basophils # (Auto) 0.1 Thou/mm3 (0.0-0.2); Basophils % (Auto) 1 % (0-2.5); Eosinophils # (Auto) 0.0 Thou/mm3 (0.0-0.5); Eosinophils % (Auto) 0 % (0-10); Hematocrit 27.5 % (36.0-46.0); Immature Granulocytes Auto 0.43 Thou/mm3 (0.00-0.00); Lymphocytes # (Auto) 0.7 Thou/mm3 (1.0-4.8); Lymphocytes % (Auto) 4 % (10-50); Mean Corpuscular HGB Conc 30.9 g/dl (31.0-37.0); Mean Corpuscular Hemoglobin 27.6 pg (25.0-35.0); Mean Corpuscular Volume 89 fL (80-100); Monocytes # (Auto) 0.5 Thou/mm3 (0.0-0.8); Monocytes % (Auto) 3 % (0-12); Neutrophils # (Auto) 15.3 Thou/mm3 (1.8-7.7); Neutrophils % (Auto) 90 % (37-80); Nucleated Red Blood Cell # 0.09 Thou/mm3 (0.00-0.00); Nucleated Red Blood Cell % 1 /100 WBC (0); Platelet Count 133 Thou/mm3 (140-440); RDW Standard Deviation 57.9 fL (36.4-46.3); Red Blood Count 3.08 Miln/mm3 (4.00-5.20); White Blood Count 17.0 Thou/mm3 (3.6-11.0)
[2025-05-28 05:58] LABS: Hemoglobin 8.5 g/dL (12.0-16.0)
[2025-05-28] MEDS: PIPER/TAZO 3.375 GM PREMIX 3.375 GM/50 ML BAG IV ×2 (06:12→13:29)
[2025-05-28] MEDS: ACETAMINOPHEN 500 MG TABLET 1000 MG NG (06:14)
[2025-05-28 06:21] LABS: Albumin, Serum 3.7 gm/dL (3.4-4.8); Albumin/Globulin Ratio 2.6 (1.2-2.2); Alkaline Phosphatase 123 U/L (46-116); Anion Gap 17 (7-16); Aspartate Amino Transferase 11 U/L (0-34); BUN/Creatinine Ratio 16 Ratio (12-20); Bilirubin,Total 0.6 mg/dL (0.3-1.2); Blood Urea Nitrogen 40 mg/dL (9-23); Calcium 8.7 mg/dL (8.3-10.6); Calcium (Corrected) 8.9 mg/dL (8.5-10.1); Carbon Dioxide 24.6 mMol/L (20.0-31.0); Chloride 100 mMol/L (98-107); Creatinine (Component) 2.5 mg/dL (0.6-1.3); Estimated Creatinine Clearance 20.3 mL/min (>60); Globulin 1.4 gm/dL (2.3-3.5); Glucose 177 mg/dL (74-106); Magnesium 1.9 mg/dL (1.6-2.6); Osmolality,Calculated 296 (275-295); Phosphorous 3.2 mg/dL (2.4-5.1); Potassium 3.5 mMol/L (3.4-5.1); Sodium 142 mMol/L (136-145); Total Protein 5.1 gm/dL (5.7-8.2); eGFR 20 See Note
[2025-05-28 06:32] LABS: Alanine Aminotransferase < 7 U/L (10-49)
[2025-05-28] MEDS: HYDROCORTISONE SOD SUCC INJ 100 MG 2 ML VIAL 25 MG IV (09:57)
[2025-05-28] MEDS: THIAMINE INJ 100 MG/ML VIAL 2 ML IVP (09:57)
[2025-05-28] MEDS: HEPARIN SOD INJ 5000 UNIT/ML VIAL SC ×2 (09:58→21:38)
--- NOTE | 2025-05-28 10:22 | ESPR_ITS ---
<Statement entered by Kelsey Robles MD - 05/29/25 11:59> TOTAL CC TIME: 45 MIN TOTAL TIME: 45MINUTES ON DIRECT MEDICAL CARE, MANAGEMENT - COORDINATION AND COUNSELING > 50% OF TOTAL TIME I saw and evaluated the patient. I reviewed the resident?s note and agree with findings and plan as documented in the resident?s note. Upon my evaluation, this patient had a high probability of imminent or life- threatening deterioration due to acute hypoxic respiratory failure, possible recurring septic shock, which required my direct attention, intervention, and personal management. This time is exclusive of time spent on procedures, which are documented separately if performed. Goals of care were reviewed with the patient at bedside. Both of her sons were present. She was engaged with goals of care by providing written responses. Patient does not want to remain on life support of measures. She and her sons had a discussion regarding goals of care prior to this hospitalization as well. We reviewed her diagnosis of recurring endometrial cancer. They understand she has bilateral nephrostomy tubes that cannot be converted over to stents due to her current condition. They are also aware that her vasopressor doses are increasing which may be a sign of recurring sepsis. We discussed her weakness and high likelihood of respiratory failure post reextubation. She would like to get her affairs in order , but thereafter would like to be extubated but not reintubated if she is unable to stay extubated. She is agreed to transition to comfort care should that happen CODE STATUS was changed to DNR. <Statement entered by Martir Manning MD - 05/28/25 19:17> Patient was seen and examined at the bedside in ICU. No acute overnight events were reported. Goals of care discussion was performed with the patient's family member and patient's CODE STATUS was changed to DNR/DNI. Patient wants to have a family matter discussion and needs 2 to 3 days and later will be extubated and family would like to see if patient can stay without intubation and if not they would like to consider comfort care. For now we will continue with fentanyl as needed for pain management. Continue with Levophed. Nephrology wants to do dialysis tomorrow. Will continue with mechanical ventilation with volume control. Patient had seepage of feculent matter from her explorative laparotomy incision site and surgeon was informed and per their instructions surgical gauze were placed and he will evaluate the patient in the morning. We will consider bowel series per surgery recs tomorrow and we held tube feeds. All labs and orders were reviewed. I discussed and supervised with the record label intern physician who took care of this patient. I personally saw and examined the patient. I agree with most of the assessment and plan. Disclaimer: Despite multiple revisions, due to the dictation software being used, the document bellow may not be free of grammatical errors including phonetic/typographic errors. However, this does not deter from our commitment to providing health care in the patient's best interest in mind. Plan of care discussed with attending Physician Dr. Margaret Manning MD PGY-3 Documentation for date of: 05/28/25 Subjective Subjective Interval history: History of Present Illness: 70-year-old female with a history of nephrolithiasis (status post bilateral nephrostomy tubes in September 2024), endometrial cancer, type 2 diabetes mellitus, and chronic anemia, presented with severe abdominal pain, vomiting, fever, and chills. Patient was found to have acute sigmoid diverticulitis complicated by localized perforation and sepsis, necessitating ICU admission for pressors. Patient is post-operative day 8 following an exploratory laparotomy, sigmoid colectomy with end descending colostomy, and hysterectomy. ICU team was consulted by the primary team after the patient experienced an episode of desaturation, with O2 saturation dropping to 77% accompanied by coughing. Patient was promptly placed on an oxymask, and a chest X-ray was obtained, revealing a mucus plug in the left mainstem bronchus with associated atelectasis. Despite attempts at non-invasive nasotracheal suctioning and chest physiotherapy, the patient showed no improvement. Proceeded to bronchoalveolar lavage to clear the mucus plugs, which the patient tolerated well. Interval History: 05/26/2025: Overnight, patient continued on noninvasive positive pressure ventilation, alternating every 4 hours on and off. Patient began desaturating to 60% on nasal cannula. A transition was made to an Oxymask at 15L, with no improvement. ABG obtained at 12:20 AM revealed a pH of 7.20 and a pCO2 of 67. Patient was started on BiPAP at 1:30 AM. A repeat ABG at 7:28 AM showed improvement, with a pH of 7.32 and pCO2 of 51. Patient had 150 cc of urine in the nephrostomy bag and 125 cc in the colostomy. Patient remained afebrile and continued on BiPAP due to bilateral atelectasis. Lactic acid remained within normal limits. Patient's blood pressure was soft this morning. A [id number] ultrasound of the IVC showed an enlarged, dilated, and minimally collapsible IVC, indicating the need for fluid removal to improve blood pressure. Patient underwent hemodialysis, successfully removing 1L of fluid. Although the goal was to remove 2L, the procedure was stopped after the patient?s oxygen sat dropped into the 70s on BiPAP. A transition to high-flow nasal cannula did not show improvement, and oxygen saturation remained in the 70s. On exam, patient was only expanding the left side of the chest during inspiration. Bagging was initiated. Patient was instructed to cough to mobilize the mucus plug, but was too weak to do. Patient was intubated for acute hypoxic respiratory failure. A bronchoalveolar lavage was performed to clear the mucus plug in the right lower lung. Following intubation, care was transferred to the ICU. Patient was started on Levophed 0.05 for hypotension. Primary team contacted the patient's son, Kwadwo, to provide update on patient's overall condition. ICU team also reached out to update him on the patient's recent intubation. He plans to fly and arrive at the hospital by this weekend. At this time patient remains full code. 05/27/2025: Overnight patient had no acute overnight events. Patient was noted to have minimal leaking of fluid around sides of nephrostomy tubes. This morning patient is alert and oriented x3. Patient is nodding yes and no along with writing with pencil on paper to communicate. Endorses some abdominal pain, has pain medication prn. Patient's vitals have been stable this morning, saturating well on mechanical ventilation FiO2 of 30%. Patient had 1.6L removed today during dialysis with 40 ml urine output last 24hrs. Patient currently being weaned off of sedation with prn sedation scheduled as needed. Patient still not able to adequately protect her airway and will continue to be mechanically ventilated at this point. Patient's son was contacted and is planning to visit her in the hospital in the morning on 05/28. Later in the day, patient was noted to have brown liquid leaking out when her abdominal incision was pressed, surgery notified. 05/28/2025: No acute events overnight; was informed that yesterday Surgery saw her for the abdominal leakage and noted it was just liquid, not fecal matter. Today patient continued to be off of sedation with prn for pain. Patient continues to be alert and oriented, communicating with pencil and paper. Patient's vitals are stable. Patient states she continues to have mild abdominal discomfort. Patient had a bowel movement overnight, continues to have minimal urine output. Patient had her sons come to bedside today and had a goals of care conversation and general update and planning with the family and patient today with attending Dr. Robles present. Refer to event note for more details. Patient is now DNR and will be getting her affairs sorted out before attempting to see if patient is able to tolerate one more spontaneous breathing trial. Patient is not scheduled for dialysis currently for today. Near the end of day, Dr. Fuentes notified of patient's continued abdominal leakage, being dark yellow, mustard color coming out of stapled incision area. He recommended that nursing cover with gauze and for a small bowel series being ordered first thing in the morning. Exam Vital Signs Temp Pulse Resp BP Pulse Ox O2 Del Method O2 Flow Rate 97.6 F 72 18 104/62 97 Mechanical Ventilation 2 05/28/25 04:00 05/28/25 06:50 05/28/25 06:50 05/28/25 06:50 05/28/25 06:50 05/28/25 04:00 05/27/25 12:55 FiO2 30 05/28/25 06:50 Narrative Exam General: No acute distress; A&Ox3; intubated, mechanically ventilated Skin: Warm, dry, intact, flaky skin b/l lower extremities, no obvious rash. HENT: NCAT, EOMI/PERRL, not icteric. External ears normal. No rhinorrhea. Moist mucous membranes; RIJ central line in place. Cardiovascular: Regular rate and rhythm, no murmur, +S1/S2; chemo port R chest Respiratory: R sided wheeze, L sided rhonchi GI: Soft, tender, non-distended. No guarding or rebound tenderness. Abdominal wound dressed, clean, dry, intact : No suprapubic tenderness. No flank tenderness bilaterally. Nephrostomy tubes bilateral Extremities: 2+ bilateral lower extremity pitting edema, no cyanosis, no clubbing. Extremity pulses present, no mottling. Neuro: Grossly nonfocal. Moving all 4 extremities. CN not formally tested but appear grossly intact. Psychiatric: Cooperative, appropriate affect. Objective Labs 05/28/25 05:20 05/28/25 05:20 Labs: Laboratory Results - last 24 hr 05/28/25 05:20 WBC 17.0 H RBC 3.08 L Hgb 8.5 L Hct 27.5 L MCV 89 MCH 27.6 MCHC 30.9 L RDW Std Deviation 57.9 H Plt Count 133 L D Neut % (Auto) 90 H Lymph % (Auto) 4 L [place] % (Auto) 3 Eos % (Auto) 0 Baso % (Auto) 1 Neut # (Auto) 15.3 H Lymph # (Auto) 0.7 L [place] # (Auto) 0.5 Eos # (Auto) 0.0 Baso # (Auto) 0.1 Immature Gran # (Auto) 0.43 H Absolute Nucleated RBC 0.09 H Immature Gran % 3 H Nucleated RBC % 1 H Sodium 142 Potassium 3.5 Chloride 100 Carbon Dioxide 24.6 Anion Gap 17 H BUN 40 H Creatinine 2.5 H Estim Creat Clear Calc 20.3 L eGFR 20 L BUN/Creatinine Ratio 16 Glucose 177 H D Calculated Osmolality 296 H Calcium 8.7 Corrected Calcium 8.9 Phosphorus 3.2 Magnesium 1.9 Total Bilirubin 0.6 AST 11 ALT < 7 L Alkaline Phosphatase 123 H Total Protein 5.1 L Albumin 3.7 Globulin 1.4 L Albumin/Globulin Ratio 2.6 H ABG Interpretation ABG results: 05/16/25 05/16/25 05/16/25 12:11 18:26 19:18 ABG pH 7.41 ABG pCO2 29 L ABG pO2 86 ABG HCO3 18 L ABG O2 Saturation 96 ABG Base Excess -6 L VBG pH 7.26 L 7.36 VBG pCO2 36 32 L VBG pO2 49 46 VBG Base Excess -10 L -7 L 05/17/25 05/17/25 05/17/25 01:51 01:58 12:35 ABG pH 7.34 L 7.21 L D ABG pCO2 30 L 30 L ABG pO2 92 181 H D ABG HCO3 16 L 12 L ABG O2 Saturation 97 99 H ABG Base Excess -9 L -15 L VBG pH 7.28 L VBG pCO2 37 VBG pO2 60 H VBG Base Excess -9 L 05/17/25 05/17/25 05/18/25 15:12 22:59 04:06 ABG pH 7.17 L* 7.26 L 7.23 L ABG pCO2 32 26 L 32 ABG pO2 343 H D 298 H D 208 H D ABG HCO3 12 L 12 L 13 L ABG O2 Saturation 100 H 100 H 100 H ABG Base Excess -16 L -14 L -13 L VBG pH VBG pCO2 VBG pO2 VBG Base Excess 05/18/25 05/19/25 05/20/25 12:10 07:13 17:49 ABG pH 7.49 H D ABG pCO2 35 ABG pO2 126 H D ABG HCO3 26 ABG O2 Saturation 99 H ABG Base Excess 3 VBG pH 7.23 L 7.57 VBG pCO2 35 L 35 L VBG pO2 173 H D 36 D VBG Base Excess -12 L 10 H 05/21/25 05/22/25 05/25/25 10:08 04:59 07:52 ABG pH 7.45 7.44 7.33 L ABG pCO2 34 32 49 H ABG pO2 70 L D 140 H D 173 H ABG HCO3 24 22 26 ABG O2 Saturation Not Performed. 99 H 98 ABG Base Excess 0 -2 0 VBG pH VBG pCO2 VBG pO2 VBG Base Excess 05/26/25 05/26/25 05/26/25 00:20 07:28 15:48 ABG pH 7.20 L D 7.32 L D 7.29 L ABG pCO2 67 H D 51 H D 53 H ABG pO2 180 H 260 H D 90 D ABG HCO3 26 27 H 25 ABG O2 Saturation 100 H 99 H 97 ABG Base Excess -3 0 -2 VBG pH VBG pCO2 VBG pO2 VBG Base Excess 05/26/25 05/27/25 20:51 04:34 ABG pH 7.31 L 7.46 H D ABG pCO2 49 H 33 D ABG pO2 138 H D 116 H D ABG HCO3 25 23 ABG O2 Saturation 98 98 ABG Base Excess -2 -1 VBG pH VBG pCO2 VBG pO2 VBG Base Excess Quality Measures Quality Measures VTE prophylaxis Advance care planning discussed with:: patient and child Assessment & Plan Assessment Current Active Medications: Generic Name Dose Route Start Last Admin Trade Name Freq PRN Reason Stop Dose Admin Fentanyl Citrate 50 mcg 05/27/25 08:48 05/28/25 02:47 Fentanyl Cit Inj 50 Mcg/Ml Amp 2ml IVP 06/01/25 08:47 50 mcg Q6HR PRN Administration Severe pain 7-10 Fentanyl Citrate 25 mcg 05/28/25 07:08 Fentanyl Cit Inj 50 Mcg/Ml Amp 2ml IVP 06/01/25 08:47 Q6HR PRN Moderate pain 4-6 Gabapentin 300 mg 05/26/25 21:00 05/27/25 20:42 Gabapentin 300 Mg Capsule NG 06/25/25 20:59 300 mg HS JESSICA Administration Heparin Sodium (Porcine) 2,600 unit 05/23/25 19:07 05/27/25 12:22 Heparin Sod Inj 1000 Unit/Ml Vial 10 Ml INDWELLCAT 06/06/25 19:06 2,600 unit PRN PRN Administration DIALYSIS Heparin Sodium (Porcine) 5,000 unit 05/24/25 09:00 05/28/25 09:58 Heparin Sod Inj 5000 Unit/Ml Vial SC 06/07/25 08:59 5,000 unit Q12HR JESSICA Administration Hydrocortisone Sodium Succinate 25 mg 05/26/25 21:00 05/28/25 09:57 Hydrocortisone Sod Succ Inj 100 Mg 2 Ml Vial IV 06/25/25 20:59 25 mg BID JESSICA Administration Piperacillin/Tazobactam/Dextrose 3.375 gm in 50 mls @ 12.5 mls/hr 05/22/25 22:30 05/28/25 06:12 Zosyn IV 05/28/25 17:59 12.5 mls/hr Q8HR JESSICA Administration Protocol Norepinephrine/Dextrose 8 mg in 250 mls @ 7.697 mls/hr 05/26/25 14:52 05/28/25 06:00 Levophed In D5w 8mg/250ml IV 06/25/25 14:51 0.07 mcg/kg/min .Q24H PRN 10.776 mls/hr PER PROTOCOL Titration Protocol 0.05 MCG/KG/MIN Albumin Human 25 gm in 100 mls @ 100 mls/hr 05/27/25 10:38 05/27/25 11:45 Albuminex 25% Ivpb IV Infused PRN PRN Infusion DIALYSIS Ipratropium [place] 0.5 mg 05/25/25 07:28 05/27/25 18:35 Ipratropium Rt 0.5 Mg/ 2.5 Ml Nebu INH 06/24/25 07:27 0.5 mg Q6HR PRN Administration SHORTNESS OF BREATH Levalbuterol HCl 0.63 mg 05/25/25 07:28 05/27/25 18:35 Levalbuterol Rt 0.63 Mg/3 Ml Nebu INH 06/24/25 07:27 0.63 mg Q6HR PRN Administration WHEEZING Ondansetron HCl 4 mg 05/16/25 18:34 05/17/25 09:51 Ondansetron Inj 2 Mg/Ml Inj 2 Ml IVP 06/15/25 18:33 4 mg Q6H PRN Administration NAUSEA OR VOMITING Protocol Pantoprazole Sodium 40 mg 05/17/25 09:00 05/28/25 09:58 Pantoprazole Inj 40 Mg Vial IVP 06/16/25 08:59 40 mg QDAY JESSICA Administration Pharmacy Consult 1 each 05/16/25 16:37 Pharmacy Renal Dose Adjustment 1 Ea XX 06/15/25 16:36 PRN PRN CONSULT Thiamine HCl 100 mg 05/27/25 09:00 05/28/25 09:57 Thiamine Inj 100 Mg/Ml Vial 2 Ml IVP 06/26/25 08:59 100 mg QDAY JESSICA Administration Plan 70-year-old female with history of nephrolithiasis (s/p bilateral nephrostomy tubes Sep 2024), endometrial cancer in remission, T2DM, and chronic anemia presenting with severe abdominal pain, vomiting, fever, and chills, found to have acute sigmoid diverticulitis with localized perforation and sepsis requiring ICU admission. S/p exploratory laparotomy, sigmoid colectomy with end descending colostomy and hysterectomy on 05/17. S/p intubation 05/26 for respiratory decompensation due to mucous plugs. Neurology #Off sedation drips, has PRN's (below) Dx: - weaned off of sedation drip 05/27 Rx: - PRN fentanyl 25 for moderate pain; PRN fentanyl 50 mcg IVP for severe pain #Post-operative pain Treatment Plan: - Gabapentin 300 mg PO HS. - Hydromorphone 1 mg Q3HR PRN breakthrough pain. Cardiovascular #Shock DDx: Right ventricular fluid overload vs septic shock Diagnostic Test: - Point of care ultrasound 05/26: enlarged, dilated, and minimally collapsible IVC. Indicating fluid removal needed. - Improved blood pressure with hemodialysis today with removal of 1L of fluid. - BNP 2218 - 05/28: WBC continues to be elevated at 17, thinking that is more likely due to demargination, especially since patient continues to be on steroids, tapering. Treatment Plan: - Continuing Levophed for hypotension. - Continue to taper stress steroid dose - hydrocortisone: 25 mg IV Q12H (50 mg total) for 2 days (05/26-05/27), then 25 mg IV daily for 2 days (05/28-05/29) then stop. (stress steroid dose taper from septic shock on admission). - Maintain an adequate blood pressure (MAP target 65-70). - Monitor hemodynamics closely and adjust vasopressor therapy as needed. Respiratory #Mechanical Ventilation #Acute hypoxic respiratory failure. Likely due to mucous plug. Diagnostic Test: - CXR 05/25: left lung mucous plug in the mainstem bronchus with atelectasis. - CXR 05/26: bibasilar pneumonia. - Patient has poor inspiratory effort and weakness and was unable to cough to remove mucous plug. - ABG 05/27 7.46 pH, 33 pco2, 116 po2, 23 bicarb Treatment review (completed) - Bronchoscopy performed on 05/25 to clear mucous plug in left lower lobe. - Reintubated on 05/26. - Bronchoscopy performed on 05/26 to clear mucous plug and secretions from right lower lobe. - Plan to continue mechanical ventilation, will attempt SBT one more time possibly tomorrow. - If fails SBT, will not continue with mechanical ventilation, will transition to comfort care support. Treatment Plan: - Continuing mechanical ventilation as patient has poor ability to deal with secretions, poor cough reflex, poor inspiratory effort i/s/o recent surgery. - 05/25 bronchoscopy culture pending. - MV settings: VT 400 (440), FIO2 30, PEEP 8.0, RR 16 (18) GI, , F/E/N #Perforated sigmoid diverticulitis with feculent peritonitis (post-op day 10) S/p exploratory laparotomy, sigmoid colectomy with end descending colostomy and hysterectomy on 05/17. Diagnostic Test: - CT abd/pelvis: acute sigmoid diverticulitis with localized rupture of diverticula and mild pelvic pneumoperitoneum. - Surgery findings: inflamed and thickened sigmoid with large perforation and feculent peritonitis. Inflamed and necrotic appearing uterus. Very thin anterior abdominal fascia with evidence of multiple mesh placements from prior operations. - Pathology report 05/16: uterus - endometroid carcinoma with extensive necrosis with negative surgical margins. Sigmoid colon - extensive diverticulosis with perforation and inflammation. - 05/27: Later in the day, patient was noted to have brown liquid leaking out when her abdominal incision was pressed, surgery notified. Treatment Review (completed) - Trophic feeds (05/22 - 05/23). Treatment Plan: - Ondansetron 4mg IV Q6H PRN for nausea. - Monitor colostomy bag for activity. - Tube feeds of Nepro, per Senior Safety Support Manager recommendations #History of endometrial cancer #Recurrent endometrial cancer Diagnostic Test: - Pathology report 05/16: uterus - endometroid carcinoma with extensive necrosis with negative surgical margins. - Patient is a poor candidate for immunosuppresants given patient may be septic currently, has bilateral nephrostomy tubes, may need a CT if hydronephrosis is worsening, currently being ventilated, may need to have PEG tube with tracheostomy in future (which would be a further increased risk of infection). Treatment Plan: - Being followed with Rad/Onc in [place]. Renal #Acute kidney injury DDx: hypoperfusion vs sepsis vs obstrutive component from nephrostomy tubes. Diagnostic Test: - Baseline Cr: 0.8-1.3. - Cr 2.3 on admission. - CT abd/pelvis: Bilateral nephrostomy ureteral catheter. Treatment Review (completed) - Started Tablo/CAD DRAFTER on 05/19 - 05/20. - HD with removal of 1L on 05/26; 1.6L removed 05/27 with 40 ml urine output last 24hrs Treatment Plan: - Daily renal panel to trend Cr. - Avoid nephrotoxins. - Renally dose meds as appropriate. - Strict I&Os, monitor urine output closely. #Isolated elevated Anion Gap Likely due to increase in unmeasured acids i/s/o acute renal failure Dx: -05/27: AGAP of 20 with normal bicarb of 22.8 and lactic acid of 1.3 Rx: -Will trend AG with cmp; no acute treatment needed at this time #Hematuria Diagnostic Test: - UA: RBC 54. Treatment Plan: - Follow-up outpatient with urology to work-up hematuria. #Obstrutive nephrolithiasis s/p nephrostomy tube Patient's nephrostomy tubes have been leaking urine from attachment site. Treatment Plan: - Dr. Woody?(urologist) plans to replace tubes on 05/31. NPO after midnight on 05/31. Heme #Leukocytosis With the acute rise in the last 24 hours, less likely from stress dose steroids which have been tapering for over 1 week now. May be due to infection vs inflammation vs acute stress given recent respiratory decompensation from mucous plugging. Infection sources are lung pathology vs possible Dx: -WBC 17 (17.6) -patient has been afebrile Rx: -On zosyn through 05/28 #Normocytic anemia DDx: anemia of chronic disease vs iron-deficiency anemia vs reactive. Diagnostic Test: - Hemoglobin stable in 8's Treatment Plan: - Haptoglobin levels pending 05/22 to evaluate for hemolysis. - Monitor CBC. Endo #Noninsulin dependent T2DM Diagnostic Test: - Hemoglobin A1c on 05/12/2025 was 5.2. Treatment Plan: - Continue to check blood glucose levels as diet has been restarted. - Will start insulin if need better glycemic control. ID #E. Coli urinary tract infection Diagnostic Test: - Urinalysis: blood 2+, RBC 54, WBC 1069, bacteria 4+, positive leukocyte esterase. - Patient has history of positive UAs. - 10/31/24 urine culture: Klebsiella. Started Ciprofloxacin 400 mg. - Urine culture 05/16 showed E. Coli. Treatment Review (completed): - Ciprofloxacin (05/17-05/19). Treatment Plan: - Zosyn dosing per pharmacy for E.coli on urine culture (05/19-05/28). Health Maintenance: DVT prophylaxis: heparin 5000 SC. GI prophylaxis: Pantoprazole 40 mg IV daily. Diet: Tube feeds Bal: none Lines: right IJ dialysis cath. Drips: levophed Vent: MV, reintubated 05/26. CODE STATUS: FULL CODE Patient plan of care was discussed with the attending physician, Dr. Robles & senior resident Dr. Kerri Goss MD PGY-1
--- NOTE | 2025-05-28 11:28 | EVENTNT_ITS ---
<Statement entered by Martir Manning MD - 05/28/25 14:57> I agree with current discussion stated by by Resident Physician Plan of care was discussed with the attending physician and resident physician. Disclaimer: Despite multiple revisions, due to the dictation software being used, the document bellow may not be free of grammatical errors including phonetic/typographic errors. However, this does not deter from our commitment to providing health care in the patient's best interest in mind. Martir Manning MD, PGY 3 <Statement entered by Kelsey Robles MD - 05/28/25 12:13> TOTAL TIME: 45MINUTES ON DIRECT MEDICAL CARE, MANAGEMENT - COORDINATION AND COUNSELING > 50% OF TOTAL TIME I saw and evaluated the patient. I reviewed the resident?s note and agree with findings and plan as documented in the resident?s note. Documentation for date of: 05/28/25 Event Note Event Note: This morning patient's sons were present for family goals of care discussion. Patient was off of sedation and was alert and oriented during the conversation, communicating with pencil and paper during this time. ICU cad draftsman Dr. Robles explained to the patient and the family in detail what the patient came to the hospital for, what was done for her over the hospital course and explained in depth the events of and surrounding her recent re-intubation. It was explained that the patient has a low likelihood of successful extubation, but it will be attempted after the family is able to get the patient's affairs in place, as per the patient's wishes that were made clear during this discussion. Patient and family were also informed of the patient's degree of sickness with all of her active/chronic problems and that if she was not able to successfully extubate, would likely need tracheostomy, peg tub, continued dialysis, which would not only be low quality of life, but would increase the chances for further problems occuring. Patient made it clear that if unable to successfully extubate she would not want to continue having any tubes in place and will want to be made comfortable when/if that time comes. Patient also made it clear that she does not want to be subjected to any more pain and suffering and would like to be mad e DNR. Family's questions were answered fully. The patient and family expressed understanding of her medical problems at this time. Patient plan of care was discussed with the attending physician, Dr. Robles & senior resident Dr. Kerri Goss MD PGY-1
--- NOTE | 2025-05-28 13:39 | ESPR_ITS ---
Documentation for date of: 05/28/25 Subjective Subjective Interval history: Reason for consult: Oliguria/Anuria - WARREN in ICU patient post-septic shock and exploratory lap History of present illness: 70-year-old female with a history of nephrolithiasis (s/p bilateral nephrostomy tubes placed Sep 2024), endometrial cancer in remission, type 2 diabetes mellitus, chronic anemia, and COPD, admitted with perforated sigmoid diverticulitis and feculent peritonitis. She underwent exploratory laparotomy, sigmoid colectomy with end descending colostomy, and hysterectomy on 05/17. Nephrology was re-consulted today for no urine output. Overnight urine output was 50 cc total, despite adequate fluid resuscitation and pressor support (on norepinephrine and vasopressin). Patient remains in the ICU, intubated and sedated on propofol/fentanyl, receiving broad-spectrum antibiotics (ciprofloxacin + metronidazole). 05/18/2025: Patient seen in ICU during morning rounds. Intubated, sedated, on vasopressor support. No urine output noted from nephrostomy tubes or Bal. Nursing reports total 50 cc output overnight. No new fevers reported. BP 112/57 mmHg, HR 82. Labs: WBC 18.6, Hgb 10.4, Hct 31.6, Plt 106 (yesterday 419), Na 136, K 5.4, Cl 108, CO2 13.4, BUN 40, Cr 2.5 (GFR 20), Ca 8.8, Phos 6.0, Mg 2.1, Albumin 2.7, Alk Phos 176, Lactic acid 3.0->3.2. ABG: pH 7.30, pCO2 32, HCO3 13. 05/19/2025: Patient currently seen in ICU. On CRRT. On ventilator. Patient more alert and awake. No urine output from nephrostomy tubes or Bal. She had a sigmoid resection and colostomy with minimal stool. Labs, medications reviewed. Will continue with CRRT for next [address] Coker who is at bedside. 05/21/2025: Patient seen today in the ICU. She remains intubated, sedated, and critically ill. No significant urine output noted overnight; nephrostomy tubes remain with minimal drainage. Blood pressure stable on low-dose pressor support. No plans for ROADWAY TECHNICIAN today, will re-evaluate tomorrow based on hemodynamics, urine output, and lab trends. Labs: WBC 7.4, Hgb 6.8, Hct 20.6, Plt 39, Na 130, K 4.4, Cl 99, CO2 22.7, Cr 0.7 (GFR >60), Ca 8.9, Phos 2.7, Mg 1.7. ABG: pH 7.45, pCO2 34, HCO3 24. No acute respiratory distress noted; acidosis resolved. 05/22/2025: Patient seen today in the ICU. Still intubated and sedated, overall condition unchanged from yesterday. No urine output overnight; bilateral nephrostomy tubes with minimal drainage (~20 cc total). No dialysis planned for today. Will trial Bumex 2 mg IV twice daily with albumin 25 g IV twice daily to assess for diuretic responsiveness. Will re-evaluate tomorrow for potential dialysis depending on output and lab trends. BP 99/61, HR 65. Labs: WBC 7.0, Hgb 8.5, Hct 26, Plt 30, Na 138, K 4.4, Cl 99, CO2 20, BUN 13, Cr 1.3, Ca 8.7, Phos 2.1, Mg 1.8. 05/23/2025: Patient seen today in ICU. She remains intubated and sedated, currently being placed on pressure support trial to evaluate for possible extubation. She is off pressors. Tube feeds restarted yesterday and are being tolerated. No urine output overnight; nephrostomy tubes remain with minimal to no drainage. Renal function slightly worsened with Cr 1.7 (GFR 32). Considering dialysis today depending on overall fluid balance and metabolic trends. BP 103/68, HR 67. Labs: WBC 6.2, Hgb 7.6, Hct 22.8, Plt 37, Na 138, K 3.8, Cl 98, CO2 19, BUN 20, Cr 1.7 (GFR 32), Ca 8.8, Phos 2.3, Mg 1.9. 05/24/2025: Patient extubated today and more awake; follows commands well. Still no urine output overnight. Bilateral nephrostomy tubes flushed. Bumex will be discontinued today as it?s no longer helping, and dialysis will continue tomorrow. The patient tolerated dialysis well yesterday. BP 190/55, HR 89. Labs: WBC 8.9, Hgb 7.9, Hct 24.7, Plt 60, Na 141, K 3.8, Cl 99, CO2 25.9, BUN 14, Cr 1.4 (GFR 40), Ca 8.4, Phos 1.7, Mg 2.3. 05/25/2025: Seen today in the ICU. Patient is sitting up and following commands. Right leg more edematous than usual. No urine output overnight; nephrostomy tubes flushed with 80 cc of output. Dialysis ongoing today. Patient has been downgraded from ICU to primary team but remains in the ICU for monitoring. BP 82/64, HR 119. Labs: WBC 8.9, Hgb 7.9, Hct 25.1, Plt 90, Na 143, K 4.3, Cl 100, CO2 27.4, BUN 19, Cr 1.7 (GFR 32), Ca 8.8, Phos 3.4, Mg 2.2, Albumin 3.7. ABG: pH 7.33, pCO2 49, PaO2 173, HCO3 26. CXR: Impression: Total left lung atelectasis likely due to mucous plug; recommend ultrasound to confirm and exclude left pleural fluid. 05/26/2025: Patient seen today, no acute overnight events. She underwent bronchoscopy yesterday to clear mucus from the lung. Blood pressure remains soft, and she was started on Midodrine 10 mg TID for support. She remains anuric, and both nephrostomy tubes noted to be leaking; plan to remove and replace nephrostomy tubes. No dialysis planned for today; will reassess tomorrow based on labs and urine output. Patient currently on BiPAP. BP 90/55, HR 83. Labs: WBC 15.5, Hgb 8.5, Hct 27.5, Plt 147, Na 142, K 4.0, Cl 101, CO2 22.7, BUN 25, Cr 2.2 (up from 1.7), GFR 24, Ca 8.9, Phos 4.3, Mg 2.2, Albumin 3.8. ABG: pH 7.32, pCO2 51, HCO3 27. Imaging: CXR: Bibasilar pneumonia. 05/28/2025: Patient seen in ICU this morning. She remains intubated but awake, alert, and following commands. She was able to participate in a family goals of care discussion this morning with her sons and ICU team. Per discussion, patient expressed desire to be DNR and made it clear that if unable to be successfully extubated, she would prefer to focus on comfort rather than invasive measures such as tracheostomy, PEG, or prolonged dialysis dependence. Patient remains anuric with minimal output from nephrostomy tubes. Nephrostomy tube exchange and stent placement remain on hold per urology due to her current condition and hemodynamic instability. Labs: WBC 17, Hgb 8.5, Hct 27.5, Plt 123, Na 143, K 3.5, Cl 100, CO2 24.6, BUN 25, Cr 2.5, Ca 8.9, Phos 3.2, Mg 1.9, Albumin 2.7. No fevers overnight. Exam Vital Signs Temp Pulse Resp BP Pulse Ox O2 Del Method O2 Flow Rate 98.1 F 99 18 107/69 98 Mechanical Ventilation 2 05/28/25 12:00 05/28/25 12:30 05/28/25 06:50 05/28/25 12:30 05/28/25 12:30 05/28/25 12:00 05/27/25 12:55 FiO2 30 05/28/25 12:00 Narrative Exam General: No acute distress; A&Ox3; intubated, mechanically ventilated Skin: Warm, dry, intact, flaky skin b/l lower extremities, no obvious rash. HENT: NCAT, EOMI/PERRL, not icteric. External ears normal. No rhinorrhea. Moist mucous membranes; RIJ central line in place. Cardiovascular: Regular rate and rhythm, no murmur, +S1/S2; chemo port R chest Respiratory: R sided wheeze, L sided rhonchi GI: Soft, tender, non-distended. No guarding or rebound tenderness. Abdominal wound dressed, clean, dry, intact : No suprapubic tenderness. No flank tenderness bilaterally. Nephrostomy tubes bilateral Extremities: 2+ bilateral lower extremity pitting edema, no cyanosis, no clubbing. Extremity pulses present, no mottling. Neuro: Grossly nonfocal. Moving all 4 extremities. CN not formally tested but appear grossly intact. Psychiatric: Cooperative, appropriate affect. Objective Labs 05/28/25 05:20 05/28/25 05:20 Labs: Laboratory Results - last 24 hr 05/28/25 05:20 WBC 17.0 H RBC 3.08 L Hgb 8.5 L Hct 27.5 L MCV 89 MCH 27.6 MCHC 30.9 L RDW Std Deviation 57.9 H Plt Count 133 L D Neut % (Auto) 90 H Lymph % (Auto) 4 L [place] % (Auto) 3 Eos % (Auto) 0 Baso % (Auto) 1 Neut # (Auto) 15.3 H Lymph # (Auto) 0.7 L [place] # (Auto) 0.5 Eos # (Auto) 0.0 Baso # (Auto) 0.1 Immature Gran # (Auto) 0.43 H Absolute Nucleated RBC 0.09 H Immature Gran % 3 H Nucleated RBC % 1 H Sodium 142 Potassium 3.5 Chloride 100 Carbon Dioxide 24.6 Anion Gap 17 H BUN 40 H Creatinine 2.5 H Estim Creat Clear Calc 20.3 L eGFR 20 L BUN/Creatinine Ratio 16 Glucose 177 H D Calculated Osmolality 296 H Calcium 8.7 Corrected Calcium 8.9 Phosphorus 3.2 Magnesium 1.9 Total Bilirubin 0.6 AST 11 ALT < 7 L Alkaline Phosphatase 123 H Total Protein 5.1 L Albumin 3.7 Globulin 1.4 L Albumin/Globulin Ratio 2.6 H ABG Interpretation ABG results: 05/16/25 05/16/25 05/16/25 12:11 18:26 19:18 ABG pH 7.41 ABG pCO2 29 L ABG pO2 86 ABG HCO3 18 L ABG O2 Saturation 96 ABG Base Excess -6 L VBG pH 7.26 L 7.36 VBG pCO2 36 32 L VBG pO2 49 46 VBG Base Excess -10 L -7 L 05/17/25 05/17/25 05/17/25 01:51 01:58 12:35 ABG pH 7.34 L 7.21 L D ABG pCO2 30 L 30 L ABG pO2 92 181 H D ABG HCO3 16 L 12 L ABG O2 Saturation 97 99 H ABG Base Excess -9 L -15 L VBG pH 7.28 L VBG pCO2 37 VBG pO2 60 H VBG Base Excess -9 L 05/17/25 05/17/25 05/18/25 15:12 22:59 04:06 ABG pH 7.17 L* 7.26 L 7.23 L ABG pCO2 32 26 L 32 ABG pO2 343 H D 298 H D 208 H D ABG HCO3 12 L 12 L 13 L ABG O2 Saturation 100 H 100 H 100 H ABG Base Excess -16 L -14 L -13 L VBG pH VBG pCO2 VBG pO2 VBG Base Excess 05/18/25 05/19/25 05/20/25 12:10 07:13 17:49 ABG pH 7.49 H D ABG pCO2 35 ABG pO2 126 H D ABG HCO3 26 ABG O2 Saturation 99 H ABG Base Excess 3 VBG pH 7.23 L 7.57 VBG pCO2 35 L 35 L VBG pO2 173 H D 36 D VBG Base Excess -12 L 10 H 05/21/25 05/22/25 05/25/25 10:08 04:59 07:52 ABG pH 7.45 7.44 7.33 L ABG pCO2 34 32 49 H ABG pO2 70 L D 140 H D 173 H ABG HCO3 24 22 26 ABG O2 Saturation Not Performed. 99 H 98 ABG Base Excess 0 -2 0 VBG pH VBG pCO2 VBG pO2 VBG Base Excess 05/26/25 05/26/25 05/26/25 00:20 07:28 15:48 ABG pH 7.20 L D 7.32 L D 7.29 L ABG pCO2 67 H D 51 H D 53 H ABG pO2 180 H 260 H D 90 D ABG HCO3 26 27 H 25 ABG O2 Saturation 100 H 99 H 97 ABG Base Excess -3 0 -2 VBG pH VBG pCO2 VBG pO2 VBG Base Excess 05/26/25 05/27/25 20:51 04:34 ABG pH 7.31 L 7.46 H D ABG pCO2 49 H 33 D ABG pO2 138 H D 116 H D ABG HCO3 25 23 ABG O2 Saturation 98 98 ABG Base Excess -2 -1 VBG pH VBG pCO2 VBG pO2 VBG Base Excess Quality Measures Quality Measures VTE prophylaxis Advance care planning discussed with:: patient Assessment & Plan Assessment Current Active Medications: Generic Name Dose Route Start Last Admin Trade Name Freq PRN Reason Stop Dose Admin Fentanyl Citrate 50 mcg 05/27/25 08:48 05/28/25 02:47 Fentanyl Cit Inj 50 Mcg/Ml Amp 2ml IVP 06/01/25 08:47 50 mcg Q6HR PRN Administration Severe pain 7-10 Fentanyl Citrate 25 mcg 10/26/25 07:08 Fentanyl Cit Inj 50 Mcg/Ml Amp 2ml IVP 06/01/25 08:47 Q6HR PRN Moderate pain 4-6 Gabapentin 300 mg 05/26/25 21:00 05/27/25 20:42 Gabapentin 300 Mg Capsule NG 06/25/25 20:59 300 mg HS JESSICA Administration Heparin Sodium (Porcine) 2,600 unit 05/23/25 19:07 05/27/25 12:22 Heparin Sod Inj 1000 Unit/Ml Vial 10 Ml INDWELLCAT 06/06/25 19:06 2,600 unit PRN PRN Administration DIALYSIS Heparin Sodium (Porcine) 5,000 unit 05/24/25 09:00 05/28/25 09:58 Heparin Sod Inj 5000 Unit/Ml Vial SC 06/07/25 08:59 5,000 unit Q12HR JESSICA Administration Hydrocortisone Sodium Succinate 25 mg 05/26/25 21:00 05/28/25 09:57 Hydrocortisone Sod Succ Inj 100 Mg 2 Ml Vial IV 06/25/25 20:59 25 mg BID JESSICA Administration Piperacillin/Tazobactam/Dextrose 3.375 gm in 50 mls @ 12.5 mls/hr 05/22/25 22:30 05/28/25 13:29 Zosyn IV 05/28/25 17:59 12.5 mls/hr Q8HR JESSICA Administration Protocol Norepinephrine/Dextrose 8 mg in 250 mls @ 7.697 mls/hr 05/26/25 14:52 05/28/25 06:00 Levophed In D5w 8mg/250ml IV 06/25/25 14:51 0.07 mcg/kg/min .Q24H PRN 10.776 mls/hr PER PROTOCOL Titration Protocol 0.05 MCG/KG/MIN Albumin Human 25 gm in 100 mls @ 100 mls/hr 05/27/25 10:38 05/27/25 11:45 Albuminex 25% Ivpb IV Infused PRN PRN Infusion DIALYSIS Ipratropium [place] 0.5 mg 05/25/25 07:28 05/27/25 18:35 Ipratropium Rt 0.5 Mg/ 2.5 Ml Nebu INH 06/24/25 07:27 0.5 mg Q6HR PRN Administration SHORTNESS OF BREATH Levalbuterol HCl 0.63 mg 05/25/25 07:28 05/27/25 18:35 Levalbuterol Rt 0.63 Mg/3 Ml Nebu INH 06/24/25 07:27 0.63 mg Q6HR PRN Administration WHEEZING Ondansetron HCl 4 mg 05/16/25 18:34 05/17/25 09:51 Ondansetron Inj 2 Mg/Ml Inj 2 Ml IVP 06/15/25 18:33 4 mg Q6H PRN Administration NAUSEA OR VOMITING Protocol Pantoprazole Sodium 40 mg 05/17/25 09:00 05/28/25 09:58 Pantoprazole Inj 40 Mg Vial IVP 06/16/25 08:59 40 mg QDAY JESSICA Administration Pharmacy Consult 1 each 05/16/25 16:37 Pharmacy Renal Dose Adjustment 1 Ea XX 06/15/25 16:36 PRN PRN CONSULT Thiamine HCl 100 mg 05/27/25 09:00 05/28/25 09:57 Thiamine Inj 100 Mg/Ml Vial 2 Ml IVP 06/26/25 08:59 100 mg QDAY JESSICA Administration Plan 70F with nephrolithiasis (s/p bilateral nephrostomy tubes Sep 2024), endometrial cancer, T2DM, COPD, and recent sigmoid colectomy with colostomy for perforated diverticulitis complicated by septic shock, respiratory failure, and anuric WARREN. Remains intubated, on intermittent pressor support, anuric. Family discussion held today confirming DNR status and comfort care if unable to extubate successfully. # Acute Kidney Injury Likely recovering ATN following septic shock and prior CRRT. Anuric with rising creatinine 2.5. Leaking nephrostomy tubes may indicate obstruction or malfunction. Plan: * No dialysis today; reassess tomorrow based on renal function and clinical status. * Nephrostomy tube exchange/stent placement on hold per urology until stable. * Continue Midodrine 10 mg TID for soft blood pressures. * Strict I&O, monitor for any urine output. * Avoid nephrotoxins, renally dose antibiotics. * Trend renal panel daily. # Metabolic Acidosis CO2 24.6, stable; acidosis well-compensated. Plan: * Monitor ABG and metabolic panel daily. * Dialysis if worsening acid-base status. # Hypophosphatemia # Hypomagnesemia Phos 3.2, Mg 1.9 ? stable. Plan: * Monitor electrolytes daily. * Replete as needed. Other problems: #Diverticulitis of large intestine with perforation (s/p exploratory laparotomy, sigmoid colectomy, colostomy, hysterectomy on 05/17) #Postoperative state (post-surgical) #Bibasilar Pneumonia #Septic Shock #Leukocytosis #Normocytic anemia #Thrombocytopenia #Lactic acidosis #Hyponatremia (resolved) #Presence of nephrostomy tubes bilaterally #Presence of colostomy #Type 2 diabetes mellitus (controlled, A1C 5.2) #COPD #Endometrial cancer, in remission #Mechanical ventilation dependence Management per primary team ----- Plan discussed with attending physician Dr. Garcia Jackson MD PGY-1 Internal Medicine Attending Provider Attestation/Addendum Patient seen and examined with resident physician Dr. Jackson. Note reviewed, agree with findings and recommendations. Urine output minimal-nephrostomy tubes not replaced yet. White count 17, hemoglobin 8.5. Creatinine 2.5 Family at bedside. Patient remains on the ventilator. Next dialysis scheduled for tomorrow. Family made her DNR. Spoke to ICU team
[2025-05-28] MEDS: Norepinephrine/D5W 8mg/250ml 8 MG/250 ML BAG 10.776 MG IV (17:12)
--- NOTE | 2025-05-28 18:00 | PC.NURSE ---
Doctors Jadon Manning and Wolfgang notified of patient's surgical incision leaking and opened along the superior portion, while daina in place. Residents reminded of thin yellow liquid leaking from site yesterday. Thick yellow liquid similar to ostomy output leaking from incision. Pictures taken, sent to Dr Fuentes by residents and printed to place in chart. Residents contacted Dr Fuentes. Per Dr Fuentes, tube feeds to be turned off, bowel series to be done tomorrow, dressing to be padded with gauze and ABD pads, Per Dr. Goss, Dr. Fuentes did not express concern or sense of urgency, or sense of urgency, and stated he will follow up tomorrow.
[2025-05-28 21:29] LABS: Hepatitis C Antibody Non Reactive (Non React)
[2025-05-28] MEDS: GABAPENTIN 300 MG CAPSULE NG (21:37)
[2025-05-29] VITALS (125 sets, daily range): BP systolic 54–130; BP diastolic 39–100; PULSE 88–123; RESP 11–28; TEMP 36.6–38; O2SAT 84–99; BMI 33.4
[2025-05-29] MEDS: fentaNYL CIT INJ 50 mCg/ML AMP 2ML IVP ×3 (00:16→18:16)
[2025-05-29 06:06] LABS: Basophils # (Auto) 0.1 Thou/mm3 (0.0-0.2); Basophils % (Auto) 1 % (0-2.5); Eosinophils # (Auto) 0.4 Thou/mm3 (0.0-0.5); Eosinophils % (Auto) 3 % (0-10); Hematocrit 30.0 % (36.0-46.0); Hemoglobin 9.6 g/dL (12.0-16.0); Immature Granulocytes Auto 0.31 Thou/mm3 (0.00-0.00); Lymphocytes # (Auto) 0.8 Thou/mm3 (1.0-4.8); Lymphocytes % (Auto) 6 % (10-50); Mean Corpuscular HGB Conc 32.0 g/dl (31.0-37.0); Mean Corpuscular Hemoglobin 28.0 pg (25.0-35.0); Mean Corpuscular Volume 88 fL (80-100); Monocytes # (Auto) 0.5 Thou/mm3 (0.0-0.8); Monocytes % (Auto) 4 % (0-12); Neutrophils # (Auto) 11.5 Thou/mm3 (1.8-7.7); Neutrophils % (Auto) 85 % (37-80); Nucleated Red Blood Cell # 0.08 Thou/mm3 (0.00-0.00); Nucleated Red Blood Cell % 1 /100 WBC (0); Platelet Count 117 Thou/mm3 (140-440); RDW Standard Deviation 58.8 fL (36.4-46.3); Red Blood Count 3.43 Miln/mm3 (4.00-5.20); White Blood Count 13.6 Thou/mm3 (3.6-11.0)
[2025-05-29 06:47] LABS: Alanine Aminotransferase < 7 U/L (10-49); Albumin, Serum 3.5 gm/dL (3.4-4.8); Albumin/Globulin Ratio 2.1 (1.2-2.2); Alkaline Phosphatase 109 U/L (46-116); Anion Gap 18 (7-16); Aspartate Amino Transferase 11 U/L (0-34); BUN/Creatinine Ratio 18 Ratio (12-20); Bilirubin,Total 0.6 mg/dL (0.3-1.2); Blood Urea Nitrogen 49 mg/dL (9-23); Calcium 8.8 mg/dL (8.3-10.6); Calcium (Corrected) 9.2 mg/dL (8.5-10.1); Carbon Dioxide 24.7 mMol/L (20.0-31.0); Chloride 98 mMol/L (98-107); Creatinine (Component) 2.7 mg/dL (0.6-1.3); Estimated Creatinine Clearance 18.9 mL/min (>60); Globulin 1.7 gm/dL (2.3-3.5); Glucose 105 mg/dL (74-106); Magnesium 1.8 mg/dL (1.6-2.6); Osmolality,Calculated 294 (275-295); Phosphorous 2.7 mg/dL (2.4-5.1); Potassium 3.1 mMol/L (3.4-5.1); Sodium 141 mMol/L (136-145); Total Protein 5.2 gm/dL (5.7-8.2); eGFR 18 See Note
[2025-05-29 06:49] LABS: Haptoglobin* 276 mg/dL (43-212)
[2025-05-29] MEDS: Norepinephrine/D5W 8mg/250ml 8 MG/250 ML BAG 23.091 MG IV ×2 (07:28→16:12)
[2025-05-29] MEDS: HYDROCORTISONE SOD SUCC INJ 100 MG 2 ML VIAL 25 MG IV (08:18)
[2025-05-29] MEDS: THIAMINE INJ 100 MG/ML VIAL 2 ML IVP (08:20)
[2025-05-29] MEDS: Magnesium Sulfate 2 GM Ivpb 2 GM/50 ML BAG IV (08:20)
[2025-05-29] MEDS: HEPARIN SOD INJ 5000 UNIT/ML VIAL SC ×2 (08:21→21:25)
--- NOTE | 2025-05-29 08:31 | XR_ITS ---
EXAMINATION: Small bowel series with KUB Date and time: May 29, 2025, 1527 hours INDICATIONS: Abdominal distention this week TECHNIQUE AND FINDINGS: Patient received 120 cc Gastrografin with 2 immediate AP portable semiupright abdomen films obtained Contrast present in dilated jejunal loop measuring 3.8 cm IMPRESSION: Dilated proximal small bowel loops, recommend follow-up abdomen films 4:00 p.m., 6:00 p.m., 8:00 p.m.
--- NOTE | 2025-05-29 09:20 | ESPR_ITS ---
Documentation for date of: 05/29/25 Subjective Subjective Interval history: Reason for consult: Oliguria/Anuria - WARREN in ICU patient post-septic shock and exploratory lap History of present illness: 70-year-old female with a history of nephrolithiasis (s/p bilateral nephrostomy tubes placed Sep 2024), endometrial cancer in remission, type 2 diabetes mellitus, chronic anemia, and COPD, admitted with perforated sigmoid diverticulitis and feculent peritonitis. She underwent exploratory laparotomy, sigmoid colectomy with end descending colostomy, and hysterectomy on 05/17. Nephrology was re-consulted today for no urine output. Overnight urine output was 50 cc total, despite adequate fluid resuscitation and pressor support (on norepinephrine and vasopressin). Patient remains in the ICU, intubated and sedated on propofol/fentanyl, receiving broad-spectrum antibiotics (ciprofloxacin + metronidazole). 05/18/2025: Patient seen in ICU during morning rounds. Intubated, sedated, on vasopressor support. No urine output noted from nephrostomy tubes or Bal. Nursing reports total 50 cc output overnight. No new fevers reported. BP 112/57 mmHg, HR 82. Labs: WBC 18.6, Hgb 10.4, Hct 31.6, Plt 106 (yesterday 419), Na 136, K 5.4, Cl 108, CO2 13.4, BUN 40, Cr 2.5 (GFR 20), Ca 8.8, Phos 6.0, Mg 2.1, Albumin 2.7, Alk Phos 176, Lactic acid 3.0->3.2. ABG: pH 7.30, pCO2 32, HCO3 13. 05/19/2025: Patient currently seen in ICU. On CRRT. On ventilator. Patient more alert and awake. No urine output from nephrostomy tubes or Bal. She had a sigmoid resection and colostomy with minimal stool. Labs, medications reviewed. Will continue with CRRT for next [address] Coker who is at bedside. 05/21/2025: Patient seen today in the ICU. She remains intubated, sedated, and critically ill. No significant urine output noted overnight; nephrostomy tubes remain with minimal drainage. Blood pressure stable on low-dose pressor support. No plans for STONE GLUER today, will re-evaluate tomorrow based on hemodynamics, urine output, and lab trends. Labs: WBC 7.4, Hgb 6.8, Hct 20.6, Plt 39, Na 130, K 4.4, Cl 99, CO2 22.7, Cr 0.7 (GFR >60), Ca 8.9, Phos 2.7, Mg 1.7. ABG: pH 7.45, pCO2 34, HCO3 24. No acute respiratory distress noted; acidosis resolved. 05/22/2025: Patient seen today in the ICU. Still intubated and sedated, overall condition unchanged from yesterday. No urine output overnight; bilateral nephrostomy tubes with minimal drainage (~20 cc total). No dialysis planned for today. Will trial Bumex 2 mg IV twice daily with albumin 25 g IV twice daily to assess for diuretic responsiveness. Will re-evaluate tomorrow for potential dialysis depending on output and lab trends. BP 99/61, HR 65. Labs: WBC 7.0, Hgb 8.5, Hct 26, Plt 30, Na 138, K 4.4, Cl 99, CO2 20, BUN 13, Cr 1.3, Ca 8.7, Phos 2.1, Mg 1.8. 05/23/2025: Patient seen today in ICU. She remains intubated and sedated, currently being placed on pressure support trial to evaluate for possible extubation. She is off pressors. Tube feeds restarted yesterday and are being tolerated. No urine output overnight; nephrostomy tubes remain with minimal to no drainage. Renal function slightly worsened with Cr 1.7 (GFR 32). Considering dialysis today depending on overall fluid balance and metabolic trends. BP 103/68, HR 67. Labs: WBC 6.2, Hgb 7.6, Hct 22.8, Plt 37, Na 138, K 3.8, Cl 98, CO2 19, BUN 20, Cr 1.7 (GFR 32), Ca 8.8, Phos 2.3, Mg 1.9. 05/24/2025: Patient extubated today and more awake; follows commands well. Still no urine output overnight. Bilateral nephrostomy tubes flushed. Bumex will be discontinued today as it?s no longer helping, and dialysis will continue tomorrow. The patient tolerated dialysis well yesterday. BP 190/55, HR 89. Labs: WBC 8.9, Hgb 7.9, Hct 24.7, Plt 60, Na 141, K 3.8, Cl 99, CO2 25.9, BUN 14, Cr 1.4 (GFR 40), Ca 8.4, Phos 1.7, Mg 2.3. 05/25/2025: Seen today in the ICU. Patient is sitting up and following commands. Right leg more edematous than usual. No urine output overnight; nephrostomy tubes flushed with 80 cc of output. Dialysis ongoing today. Patient has been downgraded from ICU to primary team but remains in the ICU for monitoring. BP 82/64, HR 119. Labs: WBC 8.9, Hgb 7.9, Hct 25.1, Plt 90, Na 143, K 4.3, Cl 100, CO2 27.4, BUN 19, Cr 1.7 (GFR 32), Ca 8.8, Phos 3.4, Mg 2.2, Albumin 3.7. ABG: pH 7.33, pCO2 49, PaO2 173, HCO3 26. CXR: Impression: Total left lung atelectasis likely due to mucous plug; recommend ultrasound to confirm and exclude left pleural fluid. 05/26/2025: Patient seen today, no acute overnight events. She underwent bronchoscopy yesterday to clear mucus from the lung. Blood pressure remains soft, and she was started on Midodrine 10 mg TID for support. She remains anuric, and both nephrostomy tubes noted to be leaking; plan to remove and replace nephrostomy tubes. No dialysis planned for today; will reassess tomorrow based on labs and urine output. Patient currently on BiPAP. BP 90/55, HR 83. Labs: WBC 15.5, Hgb 8.5, Hct 27.5, Plt 147, Na 142, K 4.0, Cl 101, CO2 22.7, BUN 25, Cr 2.2 (up from 1.7), GFR 24, Ca 8.9, Phos 4.3, Mg 2.2, Albumin 3.8. ABG: pH 7.32, pCO2 51, HCO3 27. Imaging: CXR: Bibasilar pneumonia. 05/28/2025: Patient seen in ICU this morning. She remains intubated but awake, alert, and following commands. She was able to participate in a family goals of care discussion this morning with her sons and ICU team. Per discussion, patient expressed desire to be DNR and made it clear that if unable to be successfully extubated, she would prefer to focus on comfort rather than invasive measures such as tracheostomy, PEG, or prolonged dialysis dependence. Patient remains anuric with minimal output from nephrostomy tubes. Nephrostomy tube exchange and stent placement remain on hold per urology due to her current condition and hemodynamic instability. Labs: WBC 17, Hgb 8.5, Hct 27.5, Plt 123, Na 143, K 3.5, Cl 100, CO2 24.6, BUN 25, Cr 2.5, Ca 8.9, Phos 3.2, Mg 1.9, Albumin 2.7. No fevers overnight. 05/29/2025: Patient seen and examined in ICU. She remains intubated, awake, and follows commands appropriately. Continues to be anuric with minimal output from nephrostomy tubes, which have not yet been exchanged. Currently undergoing hemodialysis with a plan to remove 1 L of fluid. During dialysis, patient?s blood pressure has been soft, requiring increase in pressor support for hemodynamic stability. BP 72/57, HR 114. Labs: WBC 13.6, Hgb 9.6, Hct 32, Plt 117, Na 141, K 3.1, Cl 98, CO2 24.7, BUN 49, Cr 2.7, Glucose 105, Ca 9.2, Phos 2.7, Mg 1.8, Albumin 3.5. Exam Vital Signs Temp Pulse Resp BP Pulse Ox O2 Del Method O2 Flow Rate 98.9 F 114 H 20 72/57 L 97 Mechanical Ventilation 2 05/29/25 08:01 05/29/25 09:00 05/29/25 06:36 05/29/25 09:00 05/29/25 09:00 05/29/25 08:01 05/27/25 12:55 FiO2 30 05/29/25 06:36 Narrative Exam General: No acute distress; A&Ox3; intubated, mechanically ventilated Skin: Warm, dry, intact, flaky skin b/l lower extremities, no obvious rash. HENT: NCAT, EOMI/PERRL, not icteric. External ears normal. No rhinorrhea. Moist mucous membranes; RIJ central line in place. Cardiovascular: Regular rate and rhythm, no murmur, +S1/S2; chemo port R chest Respiratory: Clear to auscultation. GI: Soft, tender, non-distended. No guarding or rebound tenderness. Abdominal wound dressed, clean, dry, intact : No suprapubic tenderness. No flank tenderness bilaterally. Nephrostomy tubes bilateral Extremities: 3+ bilateral lower extremity pitting edema, no cyanosis, no clubbing. Extremity pulses present, no mottling. Neuro: Grossly nonfocal. Moving all 4 extremities. CN not formally tested but appear grossly intact. Psychiatric: Cooperative, appropriate affect. Objective Labs 05/29/25 05:06 05/29/25 05:06 Labs: Laboratory Results - last 24 hr 05/22/25 05/27/25 05/29/25 04:55 04:49 05:06 WBC 13.6 H RBC 3.43 L Hgb 9.6 L Hct 30.0 L MCV 88 MCH 28.0 MCHC 32.0 RDW Std Deviation 58.8 H Plt Count 117 L Neut % (Auto) 85 H Lymph % (Auto) 6 L [place] % (Auto) 4 Eos % (Auto) 3 Baso % (Auto) 1 Neut # (Auto) 11.5 H Lymph # (Auto) 0.8 L [place] # (Auto) 0.5 Eos # (Auto) 0.4 Baso # (Auto) 0.1 Immature Gran # (Auto) 0.31 H Absolute Nucleated RBC 0.08 H Immature Gran % 2 H Nucleated RBC % 1 H Haptoglobin 276 H Sodium 141 Potassium 3.1 L Chloride 98 Carbon Dioxide 24.7 Anion Gap 18 H BUN 49 H Creatinine 2.7 H Estim Creat Clear Calc 18.9 L eGFR 18 L BUN/Creatinine Ratio 18 Glucose 105 D Calculated Osmolality 294 Calcium 8.8 Corrected Calcium 9.2 Phosphorus 2.7 Magnesium 1.8 Total Bilirubin 0.6 AST 11 ALT < 7 L Alkaline Phosphatase 109 Total Protein 5.2 L Albumin 3.5 Globulin 1.7 L Albumin/Globulin Ratio 2.1 Hepatitis C Antibody Non Reactive ABG Interpretation ABG results: 05/16/25 05/16/25 05/16/25 12:11 18:26 19:18 ABG pH 7.41 ABG pCO2 29 L ABG pO2 86 ABG HCO3 18 L ABG O2 Saturation 96 ABG Base Excess -6 L VBG pH 7.26 L 7.36 VBG pCO2 36 32 L VBG pO2 49 46 VBG Base Excess -10 L -7 L 05/17/25 05/17/25 05/17/25 01:51 01:58 12:35 ABG pH 7.34 L 7.21 L D ABG pCO2 30 L 30 L ABG pO2 92 181 H D ABG HCO3 16 L 12 L ABG O2 Saturation 97 99 H ABG Base Excess -9 L -15 L VBG pH 7.28 L VBG pCO2 37 VBG pO2 60 H VBG Base Excess -9 L 05/17/25 05/17/25 05/18/25 15:12 22:59 04:06 ABG pH 7.17 L* 7.26 L 7.23 L ABG pCO2 32 26 L 32 ABG pO2 343 H D 298 H D 208 H D ABG HCO3 12 L 12 L 13 L ABG O2 Saturation 100 H 100 H 100 H ABG Base Excess -16 L -14 L -13 L VBG pH VBG pCO2 VBG pO2 VBG Base Excess 05/18/25 05/19/25 05/20/25 12:10 07:13 17:49 ABG pH 7.49 H D ABG pCO2 35 ABG pO2 126 H D ABG HCO3 26 ABG O2 Saturation 99 H ABG Base Excess 3 VBG pH 7.23 L 7.57 VBG pCO2 35 L 35 L VBG pO2 173 H D 36 D VBG Base Excess -12 L 10 H 05/21/25 05/22/25 05/25/25 10:08 04:59 07:52 ABG pH 7.45 7.44 7.33 L ABG pCO2 34 32 49 H ABG pO2 70 L D 140 H D 173 H ABG HCO3 24 22 26 ABG O2 Saturation Not Performed. 99 H 98 ABG Base Excess 0 -2 0 VBG pH VBG pCO2 VBG pO2 VBG Base Excess 05/26/25 05/26/25 05/26/25 00:20 07:28 15:48 ABG pH 7.20 L D 7.32 L D 7.29 L ABG pCO2 67 H D 51 H D 53 H ABG pO2 180 H 260 H D 90 D ABG HCO3 26 27 H 25 ABG O2 Saturation 100 H 99 H 97 ABG Base Excess -3 0 -2 VBG pH VBG pCO2 VBG pO2 VBG Base Excess 05/26/25 05/27/25 20:51 04:34 ABG pH 7.31 L 7.46 H D ABG pCO2 49 H 33 D ABG pO2 138 H D 116 H D ABG HCO3 25 23 ABG O2 Saturation 98 98 ABG Base Excess -2 -1 VBG pH VBG pCO2 VBG pO2 VBG Base Excess Quality Measures Quality Measures VTE prophylaxis Advance care planning discussed with:: patient Assessment & Plan Assessment Current Active Medications: Generic Name Dose Route Start Last Admin Trade Name Freq PRN Reason Stop Dose Admin Epoetin Chivo 10,000 unit 05/29/25 10:30 Epoetin Chivo-Epbx Inj 10,000 Unit/Ml Vial (Non-Esrd) SC 05/29/25 10:31 X1 ONE Fentanyl Citrate 50 mcg 05/27/25 08:48 05/29/25 07:28 Fentanyl Cit Inj 50 Mcg/Ml Amp 2ml IVP 06/01/25 08:47 50 mcg Q6HR PRN Administration Severe pain 7-10 Fentanyl Citrate 25 mcg 05/28/25 07:08 Fentanyl Cit Inj 50 Mcg/Ml Amp 2ml IVP 06/01/25 08:47 Q6HR PRN Moderate pain 4-6 Gabapentin 300 mg 05/26/25 21:00 05/28/25 21:37 Gabapentin 300 Mg Capsule NG 06/25/25 20:59 300 mg HS JESSICA Administration Heparin Sodium (Porcine) 2,600 unit 05/23/25 19:07 05/27/25 12:22 Heparin Sod Inj 1000 Unit/Ml Vial 10 Ml INDWELLCAT 06/06/25 19:06 2,600 unit PRN PRN Administration DIALYSIS Heparin Sodium (Porcine) 5,000 unit 05/24/25 09:00 05/29/25 08:21 Heparin Sod Inj 5000 Unit/Ml Vial SC 06/07/25 08:59 5,000 unit Q12HR JESSICA Administration Hydrocortisone Sodium Succinate 25 mg 05/29/25 09:00 05/29/25 08:18 Hydrocortisone Sod Succ Inj 100 Mg 2 Ml Vial IV 05/30/25 08:59 25 mg DAILY JESSICA Administration Norepinephrine/Dextrose 8 mg in 250 mls @ 7.697 mls/hr 05/26/25 14:52 05/29/25 08:35 Levophed In D5w 8mg/250ml IV 06/25/25 14:51 0.17 mcg/kg/min .Q24H PRN 26.169 mls/hr PER PROTOCOL Titration Protocol 0.05 MCG/KG/MIN Albumin Human 25 gm in 100 mls @ 100 mls/hr 05/27/25 10:38 05/27/25 11:45 Albuminex 25% Ivpb IV Infused PRN PRN Infusion DIALYSIS Magnesium Sulfate 2 gm in 50 mls @ 25 mls/hr 05/29/25 07:36 05/29/25 08:20 Magnesium Sulfate Ivpb IV 05/29/25 09:35 25 mls/hr X1 ONE Administration Ipratropium [place] 0.5 mg 05/25/25 07:28 05/27/25 18:35 Ipratropium Rt 0.5 Mg/ 2.5 Ml Nebu INH 06/24/25 07:27 0.5 mg Q6HR PRN Administration SHORTNESS OF BREATH Levalbuterol HCl 0.63 mg 05/25/25 07:28 05/27/25 18:35 Levalbuterol Rt 0.63 Mg/3 Ml Nebu INH 06/24/25 07:27 0.63 mg Q6HR PRN Administration WHEEZING Ondansetron HCl 4 mg 05/16/25 18:34 05/17/25 09:51 Ondansetron Inj 2 Mg/Ml Inj 2 Ml IVP 06/15/25 18:33 4 mg Q6H PRN Administration NAUSEA OR VOMITING Protocol Pantoprazole Sodium 40 mg 05/17/25 09:00 05/29/25 08:18 Pantoprazole Inj 40 Mg Vial IVP 06/16/25 08:59 40 mg QDAY JESSICA Administration Pharmacy Consult 1 each 05/16/25 16:37 Pharmacy Renal Dose Adjustment 1 Ea XX 06/15/25 16:36 PRN PRN CONSULT Thiamine HCl 100 mg 05/27/25 09:00 05/29/25 08:20 Thiamine Inj 100 Mg/Ml Vial 2 Ml IVP 06/26/25 08:59 100 mg QDAY JESSICA Administration Plan 70F with nephrolithiasis (s/p bilateral nephrostomy tubes Sep 2024), endometrial cancer, T2DM, COPD, and recent colectomy/colostomy for perforated diverticulitis complicated by septic shock, respiratory failure, and anuric WARREN. Patient remains intubated but awake, on dialysis with low BP requiring pressor titration during session. # Acute Kidney Injury Likely recovering ATN following septic shock and prior CRRT. Leaking nephrostomy tubes may indicate obstruction or malfunction. Anuric WARREN with rising creatinine (2.7 from 2.5). Plan: * Continue hemodialysis today, 1 L UF as tolerated. * Increase pressor support during dialysis to maintain MAP >65 mmHg. * Nephrostomy tube exchange still pending per urology once stable. * Strict I&O and daily renal panel. * Avoid nephrotoxins, renally dose all meds. # Hypophosphatemia # Hypomagnesemia # Hypokalemia K 3.1, Phos 2.7, Mg 1.8. Plan: * Replete potassium to maintain >4.0. * Monitor and replace magnesium and phosphorus as needed. * Repeat BMP post-dialysis. # Metabolic Acidosis CO2 24.7 mild metabolic acidosis, stable. Plan: * Dialysis will continue to correct acid-base balance. * Monitor ABG and bicarbonate levels. Other problems: #Diverticulitis of large intestine with perforation (s/p exploratory laparotomy, sigmoid colectomy, colostomy, hysterectomy on 05/17) #Postoperative state (post-surgical) #Bibasilar Pneumonia #Septic Shock #Leukocytosis #Normocytic anemia #Thrombocytopenia #Lactic acidosis #Hyponatremia (resolved) #Presence of nephrostomy tubes bilaterally #Presence of colostomy #Type 2 diabetes mellitus (controlled, A1C 5.2) #COPD #Endometrial cancer, in remission #Mechanical ventilation dependence Management per primary team ----- Plan discussed with attending physician Dr. Garcia Jackson MD PGY-1 Internal Medicine Attending Provider Attestation/Addendum Patient currently seen and examined with resident physician Dr. Jacskon. Note reviewed, agree with findings and recommendations. Patient currently seen on dialysis. Tolerating dialysis without any problems. Hemodialysis for 3 hours, 2K, ultrafiltration 2 L, Epogen 6000, no heparin ordered. Plan of care discussed with the dialysis nurse. Please see dialysis flowsheet for further details.
--- NOTE | 2025-05-29 10:18 | ESPR_ITS ---
Subjective Subjective Interval history: apparently failed spontaneous breathing trial over weekend. is on 30% and hd. hd since 05-19 per other Exam Vital Signs Temp Pulse Resp BP Pulse Ox O2 Del Method O2 Flow Rate 98.5 F 105 H 20 93/68 97 Mechanical Ventilation 2 05/29/25 09:51 05/29/25 10:01 05/29/25 09:51 05/29/25 10:01 05/29/25 09:51 05/29/25 08:01 05/29/25 09:51 FiO2 30 05/29/25 09:51 Narrative Exam on vent and having hd rx. sedated. immobile and noncommunicative. Objective - Internal Medicine Labs 05/29/25 05:06 05/29/25 05:06 Labs: Laboratory Results - last 24 hr 05/22/25 05/27/25 05/29/25 04:55 04:49 05:06 WBC 13.6 H RBC 3.43 L Hgb 9.6 L Hct 30.0 L MCV 88 MCH 28.0 MCHC 32.0 RDW Std Deviation 58.8 H Plt Count 117 L Neut % (Auto) 85 H Lymph % (Auto) 6 L [place] % (Auto) 4 Eos % (Auto) 3 Baso % (Auto) 1 Neut # (Auto) 11.5 H Lymph # (Auto) 0.8 L [place] # (Auto) 0.5 Eos # (Auto) 0.4 Baso # (Auto) 0.1 Immature Gran # (Auto) 0.31 H Absolute Nucleated RBC 0.08 H Immature Gran % 2 H Nucleated RBC % 1 H Haptoglobin 276 H Sodium 141 Potassium 3.1 L Chloride 98 Carbon Dioxide 24.7 Anion Gap 18 H BUN 49 H Creatinine 2.7 H Estim Creat Clear Calc 18.9 L eGFR 18 L BUN/Creatinine Ratio 18 Glucose 105 D Calculated Osmolality 294 Calcium 8.8 Corrected Calcium 9.2 Phosphorus 2.7 Magnesium 1.8 Total Bilirubin 0.6 AST 11 ALT < 7 L Alkaline Phosphatase 109 Total Protein 5.2 L Albumin 3.5 Globulin 1.7 L Albumin/Globulin Ratio 2.1 Hepatitis C Antibody Non Reactive ABG Interpretation ABG results: 05/16/25 05/16/25 05/16/25 12:11 18:26 19:18 ABG pH 7.41 ABG pCO2 29 L ABG pO2 86 ABG HCO3 18 L ABG O2 Saturation 96 ABG Base Excess -6 L VBG pH 7.26 L 7.36 VBG pCO2 36 32 L VBG pO2 49 46 VBG Base Excess -10 L -7 L 05/17/25 05/17/25 05/17/25 01:51 01:58 12:35 ABG pH 7.34 L 7.21 L D ABG pCO2 30 L 30 L ABG pO2 92 181 H D ABG HCO3 16 L 12 L ABG O2 Saturation 97 99 H ABG Base Excess -9 L -15 L VBG pH 7.28 L VBG pCO2 37 VBG pO2 60 H VBG Base Excess -9 L 05/17/25 05/17/25 05/18/25 15:12 22:59 04:06 ABG pH 7.17 L* 7.26 L 7.23 L ABG pCO2 32 26 L 32 ABG pO2 343 H D 298 H D 208 H D ABG HCO3 12 L 12 L 13 L ABG O2 Saturation 100 H 100 H 100 H ABG Base Excess -16 L -14 L -13 L VBG pH VBG pCO2 VBG pO2 VBG Base Excess 05/18/25 05/19/25 05/20/25 12:10 07:13 17:49 ABG pH 7.49 H D ABG pCO2 35 ABG pO2 126 H D ABG HCO3 26 ABG O2 Saturation 99 H ABG Base Excess 3 VBG pH 7.23 L 7.57 VBG pCO2 35 L 35 L VBG pO2 173 H D 36 D VBG Base Excess -12 L 10 H 05/21/25 05/22/25 05/25/25 10:08 04:59 07:52 ABG pH 7.45 7.44 7.33 L ABG pCO2 34 32 49 H ABG pO2 70 L D 140 H D 173 H ABG HCO3 24 22 26 ABG O2 Saturation Not Performed. 99 H 98 ABG Base Excess 0 -2 0 VBG pH VBG pCO2 VBG pO2 VBG Base Excess 05/26/25 05/26/25 05/26/25 00:20 07:28 15:48 ABG pH 7.20 L D 7.32 L D 7.29 L ABG pCO2 67 H D 51 H D 53 H ABG pO2 180 H 260 H D 90 D ABG HCO3 26 27 H 25 ABG O2 Saturation 100 H 99 H 97 ABG Base Excess -3 0 -2 VBG pH VBG pCO2 VBG pO2 VBG Base Excess 05/26/25 05/27/25 20:51 04:34 ABG pH 7.31 L 7.46 H D ABG pCO2 49 H 33 D ABG pO2 138 H D 116 H D ABG HCO3 25 23 ABG O2 Saturation 98 98 ABG Base Excess -2 -1 VBG pH VBG pCO2 VBG pO2 VBG Base Excess Assessment & Plan A&P Narrative uti vs asb hx of obstructive uropathy with prior nephrostomy drainage endometrial ca hx with possible pneumonia with resp failure on hd since admit per notes check u/s. ok for abx cessation by thursday as pt here for a week already. creat is heading back to prior baseline of 2-2.5 usual rx for most infections is 7d so we are there in all likelihood use ofvent not a good prognostic finding. abx may not help much if this is all her CA sees a [facility] member onc specialist in [place] per notes from jun 2023 from [facility] urology surgeon. on little O2, so late sputum of uncertain significance. I did not request that test. if icu wants to try abx , that is a choice, but no surprise, the germs found are R to prior abx. Time Spent With Patient Time: Total time spent is greater than 50% in coordination of care (as documented) at patient's floor/unit and/or counseling patient:
[2025-05-29] MEDS: ALBUMIN HUMAN-KJDA 25% IVPB 25 GM/100 ML BTL IV (10:22)
[2025-05-29] MEDS: EPOETIN ALFA-EPBX INJ 10,000 UNIT/ML VIAL (NON-ESRD) 10000 UNIT SC (11:51)
[2025-05-29] MEDS: fentaNYL CIT INJ 50 mCg/ML AMP 2ML 25 MCG IVP (12:07)
[2025-05-29] MEDS: HEPARIN SOD INJ 1000 UNIT/ML VIAL 10 ML 2600 UNIT INDWELLCAT (12:51)
--- NOTE | 2025-05-29 13:10 | XR_ITS ---
Examination: Abdomen AP single view Technique: AP portable supine abdomen, single view Exam date and time: May 29, 2025, 1315 hours INDICATIONS: Post orogastric tube placement FINDINGS: Orogastric tube in the stomach although the stomach is air distended Left ureteral stent right percutaneous nephrostomy tube No free air Prominent lumbar levoscoliosis IMPRESSION: Orogastric tube in the stomach satisfactory position
[2025-05-29] MEDS: MEROPENEM INJ 500 MG in SODIUM CHLORIDE 0.9% (Popper) 50 ML 100 MG IV ×2 (13:16→21:24)
[2025-05-29] MEDS: MIDODRINE 5 MG TABLET 10 MG PO (13:18)
--- NOTE | 2025-05-29 13:42 | PC.PT ---
Patient will be dc from PT services. Patient is currently intubated.
--- NOTE | 2025-05-29 13:49 | ESPR_ITS ---
<Statement entered by Kelsye Robles MD - 05/30/25 10:41> Total critical care time: 45 minutes TOTAL TIME: 45MINUTES ON DIRECT MEDICAL CARE, MANAGEMENT - COORDINATION AND COUNSELING > 50% OF TOTAL TIME I saw and evaluated the patient. I reviewed the resident?s note and agree with findings and plan as documented in the resident?s note. Upon my evaluation, this patient had a high probability of imminent or life- threatening deterioration due to septic shock, acute hypoxic respiratory failure, which required my direct attention, intervention, and personal management. This time is exclusive of time spent on procedures, which are documented separately if performed. She remains on mechanical ventilation AC VC mode. She is considering whether or not she wishes to proceed with reexploration of the abdomen due to feculent dehiscence. We are continuing antibiotics and IV pressors for septic shock No significant change in renal function; she remains dependent on hemodialysis Pain is under control CODE STATUS remains DNR Documentation for date of: 05/29/25 Subjective Subjective Interval history: History of Present Illness: 70-year-old female with a history of nephrolithiasis (status post bilateral nephrostomy tubes in September 2024), endometrial cancer, type 2 diabetes mellitus, and chronic anemia, presented with severe abdominal pain, vomiting, fever, and chills. Patient was found to have acute sigmoid diverticulitis complicated by localized perforation and sepsis, necessitating ICU admission for pressors. Patient is post-operative day 8 following an exploratory laparotomy, sigmoid colectomy with end descending colostomy, and hysterectomy. ICU team was consulted by the primary team after the patient experienced an episode of desaturation, with O2 saturation dropping to 77% accompanied by coughing. Patient was promptly placed on an oxymask, and a chest X-ray was obtained, revealing a mucus plug in the left mainstem bronchus with associated atelectasis. Despite attempts at non-invasive nasotracheal suctioning and chest physiotherapy, the patient showed no improvement. Proceeded to bronchoalveolar lavage to clear the mucus plugs, which the patient tolerated well. Interval History: 05/26/2025: Overnight, patient continued on noninvasive positive pressure ventilation, alternating every 4 hours on and off. Patient began desaturating to 60% on nasal cannula. A transition was made to an Oxymask at 15L, with no improvement. ABG obtained at 12:20 AM revealed a pH of 7.20 and a pCO2 of 67. Patient was started on BiPAP at 1:30 AM. A repeat ABG at 7:28 AM showed improvement, with a pH of 7.32 and pCO2 of 51. Patient had 150 cc of urine in the nephrostomy bag and 125 cc in the colostomy. Patient remained afebrile and continued on BiPAP due to bilateral atelectasis. Lactic acid remained within normal limits. Patient's blood pressure was soft this morning. A [id number] ultrasound of the IVC showed an enlarged, dilated, and minimally collapsible IVC, indicating the need for fluid removal to improve blood pressure. Patient underwent hemodialysis, successfully removing 1L of fluid. Although the goal was to remove 2L, the procedure was stopped after the patient?s oxygen sat dropped into the 70s on BiPAP. A transition to high-flow nasal cannula did not show improvement, and oxygen saturation remained in the 70s. On exam, patient was only expanding the left side of the chest during inspiration. Bagging was initiated. Patient was instructed to cough to mobilize the mucus plug, but was too weak to do. Patient was intubated for acute hypoxic respiratory failure. A bronchoalveolar lavage was performed to clear the mucus plug in the right lower lung. Following intubation, care was transferred to the ICU. Patient was started on Levophed 0.05 for hypotension. Primary team contacted the patient's son, Kwadwo, to provide update on patient's overall condition. ICU team also reached out to update him on the patient's recent intubation. He plans to fly and arrive at the hospital by this weekend. At this time patient remains full code. 05/27/2025: Overnight patient had no acute overnight events. Patient was noted to have minimal leaking of fluid around sides of nephrostomy tubes. This morning patient is alert and oriented x3. Patient is nodding yes and no along with writing with pencil on paper to communicate. Endorses some abdominal pain, has pain medication prn. Patient's vitals have been stable this morning, saturating well on mechanical ventilation FiO2 of 30%. Patient had 1.6L removed today during dialysis with 40 ml urine output last 24hrs. Patient currently being weaned off of sedation with prn sedation scheduled as needed. Patient still not able to adequately protect her airway and will continue to be mechanically ventilated at this point. Patient's son was contacted and is planning to visit her in the hospital in the morning on 05/28. Later in the day, patient was noted to have brown liquid leaking out when her abdominal incision was pressed, surgery notified. 05/28/2025: No acute events overnight; was informed that yesterday Surgery saw her for the abdominal leakage and noted it was just liquid, not fecal matter. Today patient continued to be off of sedation with prn for pain. Patient continues to be alert and oriented, communicating with pencil and paper. Patient's vitals are stable. Patient states she continues to have mild abdominal discomfort. Patient had a bowel movement overnight, continues to have minimal urine output. Patient had her sons come to bedside today and had a goals of care conversation and general update and planning with the family and patient today with attending Dr. Robles present. Refer to event note for more details. Patient is now DNR and will be getting her affairs sorted out before attempting to see if patient is able to tolerate one more spontaneous breathing trial. Patient is not scheduled for dialysis currently for today. Near the end of day, Dr. Fuentes notified of patient's continued abdominal leakage, being dark yellow, mustard color coming out of stapled incision area. He recommended that nursing cover with gauze and for a small bowel series being ordered first thing in the morning. 05/29/2025: No acute events overnight. Abdominal incision wound dehiscence noted, with feculent watery leakage. Dr Fuentes examined the patient, initially ordered small bowel series. Further conversation with patient family regarding risks and benefits of surgery to find source of leakage were held, patient elected to avoid surgery due to high risk of procedure. As such, small bowel series was canceled. Patient underwent dialysis today, with 1.4 L of fluid removed. Midodrine added, patient continues to have high pressor requirements. Patient does not want to have comfort care at this time, wants more time to consider her options, but does not want to pursue her surgery. Exam Vital Signs Temp Pulse Resp BP Pulse Ox O2 Del Method O2 Flow Rate 97.8 F 102 H 20 104/88 H 92 L Mechanical Ventilation 2 05/29/25 13:17 05/29/25 13:30 05/29/25 13:17 05/29/25 13:30 05/29/25 13:30 05/29/25 08:01 05/29/25 13:17 FiO2 30 05/29/25 13:17 Narrative Exam General: No acute distress; A&Ox3; intubated, mechanically ventilated Skin: Warm, dry, intact, flaky skin b/l lower extremities, no obvious rash. HENT: NCAT, EOMI/PERRL, not icteric. External ears normal. No rhinorrhea. Moist mucous membranes; RIJ central line in place. Cardiovascular: Regular rate and rhythm, no murmur, +S1/S2; chemo port R chest Respiratory: Bilateral rhonchi GI: Soft, tender, non-distended. No guarding or rebound tenderness. Abdominal wound dehiscence, with feculent watery discharge. : No suprapubic tenderness. No flank tenderness bilaterally. Nephrostomy tubes bilateral Extremities: 2+ bilateral lower extremity pitting edema, no cyanosis, no clubbing. Extremity pulses present, no mottling. Neuro: Grossly nonfocal. Moving all 4 extremities. CN not formally tested but appear grossly intact. Psychiatric: Cooperative, appropriate affect. Objective Labs 05/29/25 05:06 05/29/25 05:06 Labs: Laboratory Results - last 24 hr 05/22/25 05/27/25 05/29/25 04:55 04:49 05:06 WBC 13.6 H RBC 3.43 L Hgb 9.6 L Hct 30.0 L MCV 88 MCH 28.0 MCHC 32.0 RDW Std Deviation 58.8 H Plt Count 117 L Neut % (Auto) 85 H Lymph % (Auto) 6 L Walsh % (Auto) 4 Eos % (Auto) 3 Baso % (Auto) 1 Neut # (Auto) 11.5 H Lymph # (Auto) 0.8 L Walsh # (Auto) 0.5 Eos # (Auto) 0.4 Baso # (Auto) 0.1 Immature Gran # (Auto) 0.31 H Absolute Nucleated RBC 0.08 H Immature Gran % 2 H Nucleated RBC % 1 H Haptoglobin 276 H Sodium 141 Potassium 3.1 L Chloride 98 Carbon Dioxide 24.7 Anion Gap 18 H BUN 49 H Creatinine 2.7 H Estim Creat Clear Calc 18.9 L eGFR 18 L BUN/Creatinine Ratio 18 Glucose 105 D Calculated Osmolality 294 Calcium 8.8 Corrected Calcium 9.2 Phosphorus 2.7 Magnesium 1.8 Total Bilirubin 0.6 AST 11 ALT < 7 L Alkaline Phosphatase 109 Total Protein 5.2 L Albumin 3.5 Globulin 1.7 L Albumin/Globulin Ratio 2.1 Hepatitis C Antibody Non Reactive ABG Interpretation ABG results: 05/16/25 05/16/25 05/16/25 12:11 18:26 19:18 ABG pH 7.41 ABG pCO2 29 L ABG pO2 86 ABG HCO3 18 L ABG O2 Saturation 96 ABG Base Excess -6 L VBG pH 7.26 L 7.36 VBG pCO2 36 32 L VBG pO2 49 46 VBG Base Excess -10 L -7 L 05/17/25 05/17/25 05/17/25 01:51 01:58 12:35 ABG pH 7.34 L 7.21 L D ABG pCO2 30 L 30 L ABG pO2 92 181 H D ABG HCO3 16 L 12 L ABG O2 Saturation 97 99 H ABG Base Excess -9 L -15 L VBG pH 7.28 L VBG pCO2 37 VBG pO2 60 H VBG Base Excess -9 L 05/17/25 05/17/25 05/18/25 15:12 22:59 04:06 ABG pH 7.17 L* 7.26 L 7.23 L ABG pCO2 32 26 L 32 ABG pO2 343 H D 298 H D 208 H D ABG HCO3 12 L 12 L 13 L ABG O2 Saturation 100 H 100 H 100 H ABG Base Excess -16 L -14 L -13 L VBG pH VBG pCO2 VBG pO2 VBG Base Excess 05/18/25 05/19/25 05/20/25 12:10 07:13 17:49 ABG pH 7.49 H D ABG pCO2 35 ABG pO2 126 H D ABG HCO3 26 ABG O2 Saturation 99 H ABG Base Excess 3 VBG pH 7.23 L 7.57 VBG pCO2 35 L 35 L VBG pO2 173 H D 36 D VBG Base Excess -12 L 10 H 05/21/25 05/22/25 05/25/25 10:08 04:59 07:52 ABG pH 7.45 7.44 7.33 L ABG pCO2 34 32 49 H ABG pO2 70 L D 140 H D 173 H ABG HCO3 24 22 26 ABG O2 Saturation Not Performed. 99 H 98 ABG Base Excess 0 -2 0 VBG pH VBG pCO2 VBG pO2 VBG Base Excess 05/26/25 05/26/25 05/26/25 00:20 07:28 15:48 ABG pH 7.20 L D 7.32 L D 7.29 L ABG pCO2 67 H D 51 H D 53 H ABG pO2 180 H 260 H D 90 D ABG HCO3 26 27 H 25 ABG O2 Saturation 100 H 99 H 97 ABG Base Excess -3 0 -2 VBG pH VBG pCO2 VBG pO2 VBG Base Excess 05/26/25 05/27/25 20:51 04:34 ABG pH 7.31 L 7.46 H D ABG pCO2 49 H 33 D ABG pO2 138 H D 116 H D ABG HCO3 25 23 ABG O2 Saturation 98 98 ABG Base Excess -2 -1 VBG pH VBG pCO2 VBG pO2 VBG Base Excess Quality Measures Quality Measures VTE prophylaxis Advance care planning discussed with:: patient, child and sibling Assessment & Plan Assessment Current Active Medications: Generic Name Dose Route Start Last Admin Trade Name Freq PRN Reason Stop Dose Admin Fentanyl Citrate 50 mcg 05/27/25 08:48 05/29/25 07:28 Fentanyl Cit Inj 50 Mcg/Ml Amp 2ml IVP 06/01/25 08:47 50 mcg Q6HR PRN Administration Severe pain 7-10 Fentanyl Citrate 25 mcg 05/28/25 07:08 05/29/25 12:07 Fentanyl Cit Inj 50 Mcg/Ml Amp 2ml IVP 06/01/25 08:47 25 mcg Q6HR PRN Administration Moderate pain 4-6 Gabapentin 300 mg 05/26/25 21:00 05/28/25 21:37 Gabapentin 300 Mg Capsule NG 06/25/25 20:59 300 mg HS JESSICA Administration Heparin Sodium (Porcine) 2,600 unit 05/23/25 19:07 05/29/25 12:51 Heparin Sod Inj 1000 Unit/Ml Vial 10 Ml INDWELLCAT 06/06/25 19:06 2,600 unit PRN PRN Administration DIALYSIS Heparin Sodium (Porcine) 5,000 unit 05/24/25 09:00 05/29/25 08:21 Heparin Sod Inj 5000 Unit/Ml Vial SC 06/07/25 08:59 5,000 unit Q12HR JESSICA Administration Hydrocortisone Sodium Succinate 25 mg 05/29/25 09:00 05/29/25 08:18 Hydrocortisone Sod Succ Inj 100 Mg 2 Ml Vial IV 05/30/25 08:59 25 mg DAILY JESSICA Administration Norepinephrine/Dextrose 8 mg in 250 mls @ 7.697 mls/hr 05/26/25 14:52 05/29/25 13:17 Levophed In D5w 8mg/250ml IV 06/25/25 14:51 0.19 mcg/kg/min .Q24H PRN 29.248 mls/hr PER PROTOCOL Titration Protocol 0.05 MCG/KG/MIN Albumin Human 25 gm in 100 mls @ 100 mls/hr 05/27/25 10:38 05/29/25 11:22 Albuminex 25% Ivpb IV Infused PRN PRN Infusion DIALYSIS Meropenem 500 mg/ Sodium 50 mls @ 100 mls/hr 05/29/25 13:00 05/29/25 13:16 Chloride IV 06/05/25 12:59 100 mls/hr BID JESSICA Administration Ipratropium [place] 0.5 mg 05/25/25 07:28 05/27/25 18:35 Ipratropium Rt 0.5 Mg/ 2.5 Ml Nebu INH 06/24/25 07:27 0.5 mg Q6HR PRN Administration SHORTNESS OF BREATH Levalbuterol HCl 0.63 mg 05/25/25 07:28 05/27/25 18:35 Levalbuterol Rt 0.63 Mg/3 Ml Nebu INH 06/24/25 07:27 0.63 mg Q6HR PRN Administration WHEEZING Midodrine 10 mg 05/29/25 14:00 05/29/25 13:18 Midodrine 5 Mg Tablet PO 06/28/25 13:59 10 mg TID JESSICA Administration Ondansetron HCl 4 mg 05/16/25 18:34 05/17/25 09:51 Ondansetron Inj 2 Mg/Ml Inj 2 Ml IVP 06/15/25 18:33 4 mg Q6H PRN Administration NAUSEA OR VOMITING Protocol Pantoprazole Sodium 40 mg 05/17/25 09:00 05/29/25 08:18 Pantoprazole Inj 40 Mg Vial IVP 06/16/25 08:59 40 mg QDAY JESSICA Administration Thiamine HCl 100 mg 05/27/25 09:00 05/29/25 08:20 Thiamine Inj 100 Mg/Ml Vial 2 Ml IVP 06/26/25 08:59 100 mg QDAY JESSICA Administration Plan 70-year-old female with history of nephrolithiasis (s/p bilateral nephrostomy tubes Sep 2024), endometrial cancer in remission, T2DM, and chronic anemia presenting with severe abdominal pain, vomiting, fever, and chills, found to have acute sigmoid diverticulitis with localized perforation and sepsis requiring ICU admission. S/p exploratory laparotomy, sigmoid colectomy with end descending colostomy and hysterectomy on 05/17. S/p intubation 05/26 for respiratory decompensation due to mucous plugs. Neurology #Off sedation drips, has PRN's (below) Dx: - weaned off of sedation drip 05/27 Rx: - PRN fentanyl 25 for moderate pain; PRN fentanyl 50 mcg IVP for severe pain #Post-operative pain Treatment Plan: - Gabapentin 300 mg PO HS. - PRN fentanyl 25 for moderate pain; PRN fentanyl 50 mcg IVP for severe pain Cardiovascular #Shock DDx: Right ventricular fluid overload vs septic shock Diagnostic Test: - Point of care ultrasound 05/26: enlarged, dilated, and minimally collapsible IVC. Indicating fluid removal needed. - Improved blood pressure with hemodialysis today with removal of 1L of fluid. - BNP 2218 - 05/28: WBC continues to be elevated at 17, thinking that is more likely due to demargination, especially since patient continues to be on steroids, tapering. - BAL culture 05/25 grew ESBL E. coli - Abdominal incision with feculent watery discharge Treatment Plan: - Continuing Levophed for hypotension. - Continue to taper stress steroid dose - hydrocortisone: 25 mg IV Q12H (50 mg total) for 2 days (05/26-05/27), then 25 mg IV daily for 2 days (05/28-05/29) then stop. (stress steroid dose taper from septic shock on admission). - Maintain an adequate blood pressure (MAP target 65-70). - Monitor hemodynamics closely and adjust vasopressor therapy as needed. - Treat infection as below Respiratory #Mechanical Ventilation #Acute hypoxic respiratory failure. Likely due to mucous plug. Diagnostic Test: - CXR 05/25: left lung mucous plug in the mainstem bronchus with atelectasis. - CXR 05/26: bibasilar pneumonia. - Patient has poor inspiratory effort and weakness and was unable to cough to remove mucous plug. - ABG 05/27 7.46 pH, 33 pco2, 116 po2, 23 bicarb Treatment review (completed) - Bronchoscopy performed on 05/25 to clear mucous plug in left lower lobe. - Reintubated on 05/26. - Bronchoscopy performed on 05/26 to clear mucous plug and secretions from right lower lobe. - Plan to continue mechanical ventilation due to inability to protect airway Treatment Plan: - Continuing mechanical ventilation as patient has poor ability to deal with secretions, poor cough reflex, poor inspiratory effort i/s/o recent surgery. - MV settings: VT 400 (440), FIO2 30, PEEP 8.0, RR 16 (18) - Patient DNR/DNI, considering extubation and allowing comfort care failure to protect airway GI, , F/E/N #Perforated sigmoid diverticulitis with feculent peritonitis (post-op 05/17) #Abdominal wound dehiscence with feculent discharge S/p exploratory laparotomy, sigmoid colectomy with end descending colostomy and hysterectomy on 05/17. Diagnostic Test: - CT abd/pelvis: acute sigmoid diverticulitis with localized rupture of diverticula and mild pelvic pneumoperitoneum. - Surgery findings: inflamed and thickened sigmoid with large perforation and feculent peritonitis. Inflamed and necrotic appearing uterus. Very thin anterior abdominal fascia with evidence of multiple mesh placements from prior operations. - Pathology report 05/16: uterus - endometroid carcinoma with extensive necrosis with negative surgical margins. Sigmoid colon - extensive diverticulosis with perforation and inflammation. - 05/27: Later in the day, patient was noted to have brown liquid leaking out when her abdominal incision was pressed, surgery notified. - 05/29: Abdominal incision dehiscence, significant feculence watery discharge. Surgery aware. Treatment Review (completed) - Trophic feeds (05/22 - 05/23). Treatment Plan: - Ondansetron 4mg IV Q6H PRN for nausea. - Monitor colostomy bag for activity. - Tube feeds of Nepro, per [employer] recommendations - Patient wishes to avoid additional ex lap after discussing risks and benefits. #History of endometrial cancer #Recurrent endometrial cancer Diagnostic Test: - Pathology report 05/16: uterus - endometroid carcinoma with extensive necrosis with negative surgical margins. - Patient is a poor candidate for immunosuppresants given patient may be septic currently, has bilateral nephrostomy tubes, may need a CT if hydronephrosis is worsening, currently being ventilated, may need to have PEG tube with tracheostomy in future (which would be a further increased risk of infection). Treatment Plan: - Being followed with Rad/Onc in [place]. - Hysterectomy 05/17 Renal #Acute kidney injury DDx: hypoperfusion vs sepsis vs obstrutive component from nephrostomy tubes. Diagnostic Test: - Baseline Cr: 0.8-1.3. - Cr 2.3 on admission. - CT abd/pelvis: Bilateral nephrostomy ureteral catheter. Treatment Review (completed) - Started Tablo/STENOTYPIST on 05/19 - 05/20. - HD as per nephrology foundations, with fluid removal Treatment Plan: - Daily renal panel to trend Cr. - Avoid nephrotoxins. - Renally dose meds as appropriate. - Strict I&Os, monitor urine output closely. #Isolated elevated Anion Gap Likely due to increase in unmeasured acids i/s/o acute renal failure Dx: -05/27: AGAP of 20 with normal bicarb of 22.8 and lactic acid of 1.3 Rx: -Will trend AG with cmp; no acute treatment needed at this time #Hematuria Diagnostic Test: - UA: RBC 54. Treatment Plan: - Follow-up outpatient with urology to work-up hematuria. #Obstrutive nephrolithiasis s/p nephrostomy tube Patient's nephrostomy tubes have been leaking urine from attachment site. Treatment Plan: - Dr. Woody?(urologist) plans to replace tubes on 05/31. NPO after midnight on 05/31. - Will be placed if patient is stable, unlikely at this time Heme #Normocytic anemia DDx: anemia of chronic disease vs iron-deficiency anemia vs reactive. Diagnostic Test: - Hemoglobin stable in 8's - Haptoglobin 276 Treatment Plan: - Monitor CBC. #Leukocytosis With the acute rise in the last 24 hours, less likely from stress dose steroids which have been tapering for over 1 week now. May be due to infection vs inflammation vs acute stress given recent respiratory decompensation from mucous plugging. Infection sources are lung pathology vs possible Dx: -WBC 17 (17.6) -patient has been afebrile Rx: -On zosyn through 05/28 Endo #Noninsulin dependent T2DM Diagnostic Test: - Hemoglobin A1c on 05/12/2025 was 5.2. Treatment Plan: - Continue to check blood glucose levels - Will start insulin if need better glycemic control. ID #[id number] E. coli lower respiratory infection Diagnostic test: - BAL culture left lower lung (05/25) ESBL E. coli Treatment plan: - Meropenem renally dosed 500 mg IV daily (started 05/29) #E. Coli urinary tract infection (Treated) Diagnostic Test: - Urinalysis: blood 2+, RBC 54, WBC 1069, bacteria 4+, positive leukocyte esterase. - Patient has history of positive UAs. - 10/31/24 urine culture: Klebsiella. Started Ciprofloxacin 400 mg. - Urine culture 05/16 showed E. Coli. Treatment Review (completed): - Ciprofloxacin (05/17-05/19). - Zosyn dosing per pharmacy for E.coli on urine culture (05/19-05/28). Health Maintenance: DVT prophylaxis: heparin 5000 SC. GI prophylaxis: Pantoprazole 40 mg IV daily. Diet: Tube feeds Bal: none Lines: right IJ dialysis cath. Drips: levophed Vent: MV, reintubated 05/26. CODE STATUS: FULL CODE Patient plan of care was discussed with the attending physician, Dr. Robles. Tim Anguiano MD PGY?2
[2025-05-30] VITALS (103 sets, daily range): BP systolic 44–110; BP diastolic 18–78; PULSE 83–134; RESP 12–31; TEMP 36.5–38; O2SAT 90–100; BMI 32.5
[2025-05-30] MEDS: fentaNYL CIT INJ 50 mCg/ML AMP 2ML IVP ×2 (01:56→10:10)
[2025-05-30] MEDS: Norepinephrine/D5W 8mg/250ml 8 MG/250 ML BAG 20.012 MG IV (05:15)
[2025-05-30 05:58] LABS: Basophils # (Auto) 0.1 Thou/mm3 (0.0-0.2); Basophils % (Auto) 1 % (0-2.5); Eosinophils # (Auto) 0.3 Thou/mm3 (0.0-0.5); Eosinophils % (Auto) 2 % (0-10); Hematocrit 27.2 % (36.0-46.0); Immature Granulocytes Auto 0.25 Thou/mm3 (0.00-0.00); Lymphocytes # (Auto) 0.8 Thou/mm3 (1.0-4.8); Lymphocytes % (Auto) 6 % (10-50); Mean Corpuscular HGB Conc 32.4 g/dl (31.0-37.0); Mean Corpuscular Hemoglobin 27.8 pg (25.0-35.0); Mean Corpuscular Volume 86 fL (80-100); Monocytes # (Auto) 0.6 Thou/mm3 (0.0-0.8); Monocytes % (Auto) 4 % (0-12); Neutrophils # (Auto) 10.8 Thou/mm3 (1.8-7.7); Neutrophils % (Auto) 84 % (37-80); Nucleated Red Blood Cell # 0.04 Thou/mm3 (0.00-0.00); Nucleated Red Blood Cell % 0 /100 WBC (0); Platelet Count 104 Thou/mm3 (140-440); RDW Standard Deviation 57.7 fL (36.4-46.3); Red Blood Count 3.16 Miln/mm3 (4.00-5.20); White Blood Count 12.8 Thou/mm3 (3.6-11.0)
[2025-05-30 05:59] LABS: Hemoglobin 8.8 g/dL (12.0-16.0)
[2025-05-30] MEDS: LEVALBUTEROL RT 0.63 MG/3 ML NEBU INH (06:24)
[2025-05-30] MEDS: IPRATROPIUM RT 0.5 MG/ 2.5 ML NEBU INH (06:24)
[2025-05-30 06:45] LABS: Alanine Aminotransferase < 7 U/L (10-49); Albumin, Serum 3.5 gm/dL (3.4-4.8); Albumin/Globulin Ratio 2.3 (1.2-2.2); Alkaline Phosphatase 130 U/L (46-116); Anion Gap 16 (7-16); Aspartate Amino Transferase 13 U/L (0-34); BUN/Creatinine Ratio 18 Ratio (12-20); Bilirubin,Total 0.6 mg/dL (0.3-1.2); Blood Urea Nitrogen 42 mg/dL (9-23); Calcium 8.5 mg/dL (8.3-10.6); Calcium (Corrected) 8.9 mg/dL (8.5-10.1); Carbon Dioxide 25.5 mMol/L (20.0-31.0); Chloride 101 mMol/L (98-107); Creatinine (Component) 2.4 mg/dL (0.6-1.3); Estimated Creatinine Clearance 20.9 mL/min (>60); Globulin 1.5 gm/dL (2.3-3.5); Glucose 105 mg/dL (74-106); Magnesium 2.1 mg/dL (1.6-2.6); Osmolality,Calculated 293 (275-295); Phosphorous 2.3 mg/dL (2.4-5.1); Potassium 3.3 mMol/L (3.4-5.1); Sodium 142 mMol/L (136-145); Total Protein 5.0 gm/dL (5.7-8.2); eGFR 21 See Note
[2025-05-30] MEDS: POT PHOS 15 mMol in NS 250 ML 15 MMOL/250 ML BAG 62.5 MMOL IV (08:32)
[2025-05-30] MEDS: THIAMINE INJ 100 MG/ML VIAL 2 ML IVP (08:37)
[2025-05-30] MEDS: MEROPENEM INJ 500 MG in SODIUM CHLORIDE 0.9% (Popper) 50 ML 100 MG IV (08:39)
[2025-05-30] MEDS: HEPARIN SOD INJ 5000 UNIT/ML VIAL SC (08:47)
--- NOTE | 2025-05-30 09:37 | ESPR_ITS ---
Documentation for date of: 05/30/25 Subjective Subjective Interval history: Reason for consult: Oliguria/Anuria - WARREN in ICU patient post-septic shock and exploratory lap History of present illness: 70-year-old female with a history of nephrolithiasis (s/p bilateral nephrostomy tubes placed Sep 2024), endometrial cancer in remission, type 2 diabetes mellitus, chronic anemia, and COPD, admitted with perforated sigmoid diverticulitis and feculent peritonitis. She underwent exploratory laparotomy, sigmoid colectomy with end descending colostomy, and hysterectomy on 05/17. Nephrology was re-consulted today for no urine output. Overnight urine output was 50 cc total, despite adequate fluid resuscitation and pressor support (on norepinephrine and vasopressin). Patient remains in the ICU, intubated and sedated on propofol/fentanyl, receiving broad-spectrum antibiotics (ciprofloxacin + metronidazole). 05/18/2025: Patient seen in ICU during morning rounds. Intubated, sedated, on vasopressor support. No urine output noted from nephrostomy tubes or Bal. Nursing reports total 50 cc output overnight. No new fevers reported. BP 112/57 mmHg, HR 82. Labs: WBC 18.6, Hgb 10.4, Hct 31.6, Plt 106 (yesterday 419), Na 136, K 5.4, Cl 108, CO2 13.4, BUN 40, Cr 2.5 (GFR 20), Ca 8.8, Phos 6.0, Mg 2.1, Albumin 2.7, Alk Phos 176, Lactic acid 3.0->3.2. ABG: pH 7.30, pCO2 32, HCO3 13. 05/19/2025: Patient currently seen in ICU. On CRRT. On ventilator. Patient more alert and awake. No urine output from nephrostomy tubes or Bal. She had a sigmoid resection and colostomy with minimal stool. Labs, medications reviewed. Will continue with CRRT for next [address] Coker who is at bedside. 05/21/2025: Patient seen today in the ICU. She remains intubated, sedated, and critically ill. No significant urine output noted overnight; nephrostomy tubes remain with minimal drainage. Blood pressure stable on low-dose pressor support. No plans for [employer] COD[employer] today, will re-evaluate tomorrow based on hemodynamics, urine output, and lab trends. Labs: WBC 7.4, Hgb 6.8, Hct 20.6, Plt 39, Na 130, K 4.4, Cl 99, CO2 22.7, Cr 0.7 (GFR >60), Ca 8.9, Phos 2.7, Mg 1.7. ABG: pH 7.45, pCO2 34, HCO3 24. No acute respiratory distress noted; acidosis resolved. 05/22/2025: Patient seen today in the ICU. Still intubated and sedated, overall condition unchanged from yesterday. No urine output overnight; bilateral nephrostomy tubes with minimal drainage (~20 cc total). No dialysis planned for today. Will trial Bumex 2 mg IV twice daily with albumin 25 g IV twice daily to assess for diuretic responsiveness. Will re-evaluate tomorrow for potential dialysis depending on output and lab trends. BP 99/61, HR 65. Labs: WBC 7.0, Hgb 8.5, Hct 26, Plt 30, Na 138, K 4.4, Cl 99, CO2 20, BUN 13, Cr 1.3, Ca 8.7, Phos 2.1, Mg 1.8. 05/23/2025: Patient seen today in ICU. She remains intubated and sedated, currently being placed on pressure support trial to evaluate for possible extubation. She is off pressors. Tube feeds restarted yesterday and are being tolerated. No urine output overnight; nephrostomy tubes remain with minimal to no drainage. Renal function slightly worsened with Cr 1.7 (GFR 32). Considering dialysis today depending on overall fluid balance and metabolic trends. BP 103/68, HR 67. Labs: WBC 6.2, Hgb 7.6, Hct 22.8, Plt 37, Na 138, K 3.8, Cl 98, CO2 19, BUN 20, Cr 1.7 (GFR 32), Ca 8.8, Phos 2.3, Mg 1.9. 05/24/2025: Patient extubated today and more awake; follows commands well. Still no urine output overnight. Bilateral nephrostomy tubes flushed. Bumex will be discontinued today as it?s no longer helping, and dialysis will continue tomorrow. The patient tolerated dialysis well yesterday. BP 190/55, HR 89. Labs: WBC 8.9, Hgb 7.9, Hct 24.7, Plt 60, Na 141, K 3.8, Cl 99, CO2 25.9, BUN 14, Cr 1.4 (GFR 40), Ca 8.4, Phos 1.7, Mg 2.3. 05/25/2025: Seen today in the ICU. Patient is sitting up and following commands. Right leg more edematous than usual. No urine output overnight; nephrostomy tubes flushed with 80 cc of output. Dialysis ongoing today. Patient has been downgraded from ICU to primary team but remains in the ICU for monitoring. BP 82/64, HR 119. Labs: WBC 8.9, Hgb 7.9, Hct 25.1, Plt 90, Na 143, K 4.3, Cl 100, CO2 27.4, BUN 19, Cr 1.7 (GFR 32), Ca 8.8, Phos 3.4, Mg 2.2, Albumin 3.7. ABG: pH 7.33, pCO2 49, PaO2 173, HCO3 26. CXR: Impression: Total left lung atelectasis likely due to mucous plug; recommend ultrasound to confirm and exclude left pleural fluid. 05/26/2025: Patient seen today, no acute overnight events. She underwent bronchoscopy yesterday to clear mucus from the lung. Blood pressure remains soft, and she was started on Midodrine 10 mg TID for support. She remains anuric, and both nephrostomy tubes noted to be leaking; plan to remove and replace nephrostomy tubes. No dialysis planned for today; will reassess tomorrow based on labs and urine output. Patient currently on BiPAP. BP 90/55, HR 83. Labs: WBC 15.5, Hgb 8.5, Hct 27.5, Plt 147, Na 142, K 4.0, Cl 101, CO2 22.7, BUN 25, Cr 2.2 (up from 1.7), GFR 24, Ca 8.9, Phos 4.3, Mg 2.2, Albumin 3.8. ABG: pH 7.32, pCO2 51, HCO3 27. Imaging: CXR: Bibasilar pneumonia. 05/28/2025: Patient seen in ICU this morning. She remains intubated but awake, alert, and following commands. She was able to participate in a family goals of care discussion this morning with her sons and ICU team. Per discussion, patient expressed desire to be DNR and made it clear that if unable to be successfully extubated, she would prefer to focus on comfort rather than invasive measures such as tracheostomy, PEG, or prolonged dialysis dependence. Patient remains anuric with minimal output from nephrostomy tubes. Nephrostomy tube exchange and stent placement remain on hold per urology due to her current condition and hemodynamic instability. Labs: WBC 17, Hgb 8.5, Hct 27.5, Plt 123, Na 143, K 3.5, Cl 100, CO2 24.6, BUN 25, Cr 2.5, Ca 8.9, Phos 3.2, Mg 1.9, Albumin 2.7. No fevers overnight. 05/29/2025: Patient seen and examined in ICU. She remains intubated, awake, and follows commands appropriately. Continues to be anuric with minimal output from nephrostomy tubes, which have not yet been exchanged. Currently undergoing hemodialysis with a plan to remove 1 L of fluid. During dialysis, patient?s blood pressure has been soft, requiring increase in pressor support for hemodynamic stability. BP 72/57, HR 114. Labs: WBC 13.6, Hgb 9.6, Hct 32, Plt 117, Na 141, K 3.1, Cl 98, CO2 24.7, BUN 49, Cr 2.7, Glucose 105, Ca 9.2, Phos 2.7, Mg 1.8, Albumin 3.5. 05/30/2025: Patient seen today in the ICU. Sleeping, appeared more fatigued but woke up and followed commands when asked. No acute events overnight. Nephrostomy tubes continue to show no output, and the patient remains anuric. No dialysis required for today. Patient had a small bowel wound dehiscence with feculent watery leakage, which was discussed with the family. After family discussions, the decision was made not to pursue further surgical intervention due to high procedure risk, and the small bowel series was canceled. Patient is still highly dependent on pressors and Midodrine for blood pressure support. BP 99/62 pulse 84. Labs: WBC 12.8, hemoglobin 8.8, HCT 27, platelet 104, Na 142, K 3.3, CL 101, CO2 25.5, CR 2.4, GFR 21, BUN 42, Ca 8.9 Phos 2.3, mag 2.1, albumin 3.5. Exam Vital Signs Temp Pulse Resp BP Pulse Ox O2 Del Method O2 Flow Rate 98.8 F 84 18 99/62 99 Mechanical Ventilation 2 05/30/25 05:00 05/30/25 06:22 05/30/25 06:22 05/30/25 06:00 05/30/25 06:22 05/30/25 04:00 05/29/25 13:17 FiO2 30 05/30/25 06:22 Narrative Exam General: Patient sleeping, more fatigued, awake and following commands when roused. CV: Regular rate and rhythm, no murmurs, no JVD. Resp: Intubated, mechanically ventilated, bilateral rhonchi on auscultation. Abdomen: Soft, non-distended, tender, no guarding or rebound tenderness, wound dehiscence with feculent watery discharge. : Nephrostomy tubes in place with no output. Extremities: 2+ bilateral lower extremity pitting edema, no cyanosis or clubbing, pulses present. Neuro: Moving all 4 extremities, CN intact. Psychiatric: Cooperative, appropriate mood and affect. Objective Labs 05/30/25 04:35 05/30/25 04:35 Labs: Laboratory Results - last 24 hr 05/30/25 04:35 WBC 12.8 H RBC 3.16 L Hgb 8.8 L Hct 27.2 L MCV 86 MCH 27.8 MCHC 32.4 RDW Std Deviation 57.7 H Plt Count 104 L Neut % (Auto) 84 H Lymph % (Auto) 6 L [place] % (Auto) 4 Eos % (Auto) 2 Baso % (Auto) 1 Neut # (Auto) 10.8 H Lymph # (Auto) 0.8 L [place] # (Auto) 0.6 Eos # (Auto) 0.3 Baso # (Auto) 0.1 Immature Gran # (Auto) 0.25 H Absolute Nucleated RBC 0.04 H Immature Gran % 2 H Nucleated RBC % 0 Sodium 142 Potassium 3.3 L Chloride 101 Carbon Dioxide 25.5 Anion Gap 16 BUN 42 H Creatinine 2.4 H Estim Creat Clear Calc 20.9 L eGFR 21 L BUN/Creatinine Ratio 18 Glucose 105 Calculated Osmolality 293 Calcium 8.5 Corrected Calcium 8.9 Phosphorus 2.3 L Magnesium 2.1 Total Bilirubin 0.6 AST 13 ALT < 7 L Alkaline Phosphatase 130 H D Total Protein 5.0 L Albumin 3.5 Globulin 1.5 L Albumin/Globulin Ratio 2.3 H ABG Interpretation ABG results: 05/16/25 05/16/25 05/16/25 12:11 18:26 19:18 ABG pH 7.41 ABG pCO2 29 L ABG pO2 86 ABG HCO3 18 L ABG O2 Saturation 96 ABG Base Excess -6 L VBG pH 7.26 L 7.36 VBG pCO2 36 32 L VBG pO2 49 46 VBG Base Excess -10 L -7 L 05/17/25 05/17/25 05/17/25 01:51 01:58 12:35 ABG pH 7.34 L 7.21 L D ABG pCO2 30 L 30 L ABG pO2 92 181 H D ABG HCO3 16 L 12 L ABG O2 Saturation 97 99 H ABG Base Excess -9 L -15 L VBG pH 7.28 L VBG pCO2 37 VBG pO2 60 H VBG Base Excess -9 L 05/17/25 05/17/25 05/18/25 15:12 22:59 04:06 ABG pH 7.17 L* 7.26 L 7.23 L ABG pCO2 32 26 L 32 ABG pO2 343 H D 298 H D 208 H D ABG HCO3 12 L 12 L 13 L ABG O2 Saturation 100 H 100 H 100 H ABG Base Excess -16 L -14 L -13 L VBG pH VBG pCO2 VBG pO2 VBG Base Excess 05/18/25 05/19/25 05/20/25 12:10 07:13 17:49 ABG pH 7.49 H D ABG pCO2 35 ABG pO2 126 H D ABG HCO3 26 ABG O2 Saturation 99 H ABG Base Excess 3 VBG pH 7.23 L 7.57 VBG pCO2 35 L 35 L VBG pO2 173 H D 36 D VBG Base Excess -12 L 10 H 05/21/25 05/22/25 05/25/25 10:08 04:59 07:52 ABG pH 7.45 7.44 7.33 L ABG pCO2 34 32 49 H ABG pO2 70 L D 140 H D 173 H ABG HCO3 24 22 26 ABG O2 Saturation Not Performed. 99 H 98 ABG Base Excess 0 -2 0 VBG pH VBG pCO2 VBG pO2 VBG Base Excess 05/26/25 05/26/25 05/26/25 00:20 07:28 15:48 ABG pH 7.20 L D 7.32 L D 7.29 L ABG pCO2 67 H D 51 H D 53 H ABG pO2 180 H 260 H D 90 D ABG HCO3 26 27 H 25 ABG O2 Saturation 100 H 99 H 97 ABG Base Excess -3 0 -2 VBG pH VBG pCO2 VBG pO2 VBG Base Excess 05/26/25 05/27/25 20:51 04:34 ABG pH 7.31 L 7.46 H D ABG pCO2 49 H 33 D ABG pO2 138 H D 116 H D ABG HCO3 25 23 ABG O2 Saturation 98 98 ABG Base Excess -2 -1 VBG pH VBG pCO2 VBG pO2 VBG Base Excess Quality Measures Quality Measures VTE prophylaxis Advance care planning discussed with:: patient Assessment & Plan Assessment Current Active Medications: Generic Name Dose Route Start Last Admin Trade Name Freq PRN Reason Stop Dose Admin Fentanyl Citrate 50 mcg 05/27/25 08:48 05/30/25 01:56 Fentanyl Cit Inj 50 Mcg/Ml Amp 2ml IVP 06/01/25 08:47 50 mcg Q6HR PRN Administration Severe pain 7-10 Fentanyl Citrate 25 mcg 05/28/25 07:08 05/29/25 12:07 Fentanyl Cit Inj 50 Mcg/Ml Amp 2ml IVP 06/01/25 08:47 25 mcg Q6HR PRN Administration Moderate pain 4-6 Heparin Sodium (Porcine) 2,600 unit 05/23/25 19:07 05/29/25 12:51 Heparin Sod Inj 1000 Unit/Ml Vial 10 Ml INDWELLCAT 06/06/25 19:06 2,600 unit PRN PRN Administration DIALYSIS Heparin Sodium (Porcine) 5,000 unit 05/24/25 09:00 05/30/25 08:47 Heparin Sod Inj 5000 Unit/Ml Vial SC 06/07/25 08:59 5,000 unit Q12HR JESSICA Administration Norepinephrine/Dextrose 8 mg in 250 mls @ 7.697 mls/hr 05/26/25 14:52 05/30/25 09:00 Levophed In D5w 8mg/250ml IV 06/25/25 14:51 0.11 mcg/kg/min .Q24H PRN 16.933 mls/hr PER PROTOCOL Titration Protocol 0.05 MCG/KG/MIN Albumin Human 25 gm in 100 mls @ 100 mls/hr 05/27/25 10:38 05/29/25 11:22 Albuminex 25% Ivpb IV Infused PRN PRN Infusion DIALYSIS Meropenem 500 mg/ Sodium 50 mls @ 100 mls/hr 05/29/25 13:00 05/30/25 08:39 Chloride IV 06/05/25 12:59 100 mls/hr BID JESSICA Administration Potassium Phosphate 15 mmol in 250 mls @ 62.5 mls/hr 05/30/25 07:30 05/30/25 08:32 Pot Phos 15 Mmol In Ns 250 Ml IV 05/30/25 11:29 62.5 mls/hr X1 ONE Administration Ipratropium [place] 0.5 mg 05/25/25 07:28 05/30/25 06:24 Ipratropium Rt 0.5 Mg/ 2.5 Ml Nebu INH 06/24/25 07:27 0.5 mg Q6HR PRN Administration SHORTNESS OF BREATH Levalbuterol HCl 0.63 mg 05/25/25 07:28 05/30/25 06:24 Levalbuterol Rt 0.63 Mg/3 Ml Nebu INH 06/24/25 07:27 0.63 mg Q6HR PRN Administration WHEEZING Midodrine 10 mg 05/29/25 14:00 05/30/25 05:23 Midodrine 5 Mg Tablet PO 06/28/25 13:59 Not Given TID JESSICA Ondansetron HCl 4 mg 05/16/25 18:34 05/17/25 09:51 Ondansetron Inj 2 Mg/Ml Inj 2 Ml IVP 06/15/25 18:33 4 mg Q6H PRN Administration NAUSEA OR VOMITING Protocol Pantoprazole Sodium 40 mg 05/17/25 09:00 05/30/25 08:38 Pantoprazole Inj 40 Mg Vial IVP 06/16/25 08:59 40 mg QDAY JESSICA Administration Thiamine HCl 100 mg 05/27/25 09:00 05/30/25 08:37 Thiamine Inj 100 Mg/Ml Vial 2 Ml IVP 06/26/25 08:59 100 mg QDAY JESSICA Administration Plan 70F with nephrolithiasis (s/p bilateral nephrostomy tubes), endometrial cancer, T2DM, COPD, and recent sigmoid colectomy for perforated diverticulitis complicated by septic shock, respiratory failure, and anuric WARREN. Patient remains intubated and anuric, requiring ongoing pressor support and dialysis. Wound dehiscence with feculent leakage identified and discussed with family, who declined further surgical intervention. # Acute Kidney Injury Likely recovering ATN following septic shock and prior CRRT. Anuric with no nephrostomy tube output. Anuric WARREN with improving creatinine (2.4 from 2.7). Plan: * No hemodialysis today; reassess tomorrow. * Continue midodrine for blood pressure support. * Nephrostomy tube exchange still pending per urology, ICU team regarding the need of nephrostomy tubes and to speak with urology regarding that. * Strict I&O and daily renal panel. * Avoid nephrotoxins, renally dose all meds. # Hypophosphatemia # Hypomagnesemia # Hypokalemia K 3.3, Phos 2.3, Mg 2.1. Plan: * Replete potassium to maintain >4.0. * Replete phosphorus * Monitor and replace magnesium as needed. # Metabolic Acidosis CO2 25.5 mild metabolic acidosis, stable. Plan: * Monitor ABG and bicarbonate levels. Other problems: #Diverticulitis of large intestine with perforation (s/p exploratory laparotomy, sigmoid colectomy, colostomy, hysterectomy on 05/17) #Postoperative state (post-surgical) #Bibasilar Pneumonia #Septic Shock #Leukocytosis #Normocytic anemia #Thrombocytopenia #Lactic acidosis #Hyponatremia (resolved) #Presence of nephrostomy tubes bilaterally #Presence of colostomy #Type 2 diabetes mellitus (controlled, A1C 5.2) #COPD #Endometrial cancer, in remission #Mechanical ventilation dependence Management per primary team ----- Plan discussed with attending physician Dr. Garcia Jackson MD PGY-1 Internal Medicine Attending Provider Attestation/Addendum Patient currently seen and examined with resident physician Dr. Jackson. Note reviewed, agree with findings and recommendations. Patient remains on ventilator. Still with edema. Urine output very minimal. Noted last CT did not show any Not quite sure any old nephrostomy tubes at this. Discussed with ICU team. Next dialysis scheduled for tomorrow.
--- NOTE | 2025-05-30 11:02 | CHAP ---
Patient was visited by a Spiritual Care Volunteer on 05/30/2025 between 0900 and 0920 and received comfort, encouragement and/or prayer.
[2025-05-30] MEDS: fentaNYL CIT INJ 50 mCg/ML AMP 2ML 25 MCG IVP ×2 (13:09→16:42)
--- NOTE | 2025-05-30 13:30 | ESPR_ITS ---
<Statement entered by Kelsey Robles MD - 05/31/25 13:03> TOTAL CC TIME: 45 MIN I saw and evaluated the patient. I reviewed the resident?s note and agree with findings and plan as documented in the resident?s note. Upon my evaluation, this patient had a high probability of imminent or life- threatening deterioration due to septic shock which required my direct attention, intervention, and personal management. This time is exclusive of time spent on procedures, which are documented separately if performed. Septic shock due to peritonitis complications of abdominal surgery. Feculent GI output noted through staple lines as well as bleeding. Remains on pressors and antibioticS Goals of care reviewed with patient and family-they did not wish to pursue any further surgical interventions and requested transition to comfort care <Statement entered by Martir Manning MD - 05/30/25 15:05> Patient was seen and examined at bedside in ICU. No acute overnight events reported. Patient continues to have abdominal pain feculent leakage. Therefore we will continue with hold on tube feeds. She continues to receive as needed pain medications with fentanyl 25 mcg and 50 mcg for moderate to severe pain. Levophed requirement went up from 0.13-0.11. Midodrine will be continued as well. Steroid doses were tapered off. Left lower lobe aspirate culture showed ESBL and Staph auricularis likely contaminant. Will continue with meropenem. Patient was having blockage of the G-tube with mucous therefore was salt water was flush through the ET tube and ETCO2 waveform improved, peak pressures started coming down. Computer Programmer did not recommend dialysis today and only recommended dialysis and will reassess tomorrow. Family was updated regarding the plan. All labs and orders were reviewed. I discussed and supervised with the international accountant physician who took care of this patient. I personally saw and examined the patient. I agree with most of the assessment and plan. Disclaimer: Despite multiple revisions, due to the dictation software being used, the document bellow may not be free of grammatical errors including phonetic/typographic errors. However, this does not deter from our commitment to providing health care in the patient's best interest in mind. Plan of care discussed with attending Physician Dr. Margaret Manning MD PGY-3 Documentation for date of: 05/30/25 Subjective Subjective Interval history: History of Present Illness: 70-year-old female with a history of nephrolithiasis (status post bilateral nephrostomy tubes in September 2024), endometrial cancer, type 2 diabetes mellitus, and chronic anemia, presented with severe abdominal pain, vomiting, fever, and chills. Patient was found to have acute sigmoid diverticulitis complicated by localized perforation and sepsis, necessitating ICU admission for pressors. Patient is post-operative day 8 following an exploratory laparotomy, sigmoid colectomy with end descending colostomy, and hysterectomy. ICU team was consulted by the primary team after the patient experienced an episode of desaturation, with O2 saturation dropping to 77% accompanied by coughing. Patient was promptly placed on an oxymask, and a chest X-ray was obtained, revealing a mucus plug in the left mainstem bronchus with associated atelectasis. Despite attempts at non-invasive nasotracheal suctioning and chest physiotherapy, the patient showed no improvement. Proceeded to bronchoalveolar lavage to clear the mucus plugs, which the patient tolerated well. Interval History: 05/26/2025: Overnight, patient continued on noninvasive positive pressure ventilation, alternating every 4 hours on and off. Patient began desaturating to 60% on nasal cannula. A transition was made to an Oxymask at 15L, with no improvement. ABG obtained at 12:20 AM revealed a pH of 7.20 and a pCO2 of 67. Patient was started on BiPAP at 1:30 AM. A repeat ABG at 7:28 AM showed improvement, with a pH of 7.32 and pCO2 of 51. Patient had 150 cc of urine in the nephrostomy bag and 125 cc in the colostomy. Patient remained afebrile and continued on BiPAP due to bilateral atelectasis. Lactic acid remained within normal limits. Patient's blood pressure was soft this morning. A [id number] ultrasound of the IVC showed an enlarged, dilated, and minimally collapsible IVC, indicating the need for fluid removal to improve blood pressure. Patient underwent hemodialysis, successfully removing 1L of fluid. Although the goal was to remove 2L, the procedure was stopped after the patient?s oxygen sat dropped into the 70s on BiPAP. A transition to high-flow nasal cannula did not show improvement, and oxygen saturation remained in the 70s. On exam, patient was only expanding the left side of the chest during inspiration. Bagging was initiated. Patient was instructed to cough to mobilize the mucus plug, but was too weak to do. Patient was intubated for acute hypoxic respiratory failure. A bronchoalveolar lavage was performed to clear the mucus plug in the right lower lung. Following intubation, care was transferred to the ICU. Patient was started on Levophed 0.05 for hypotension. Primary team contacted the patient's son, Kwadwo, to provide update on patient's overall condition. ICU team also reached out to update him on the patient's recent intubation. He plans to fly and arrive at the hospital by this weekend. At this time patient remains full code. 05/27/2025: Overnight patient had no acute overnight events. Patient was noted to have minimal leaking of fluid around sides of nephrostomy tubes. This morning patient is alert and oriented x3. Patient is nodding yes and no along with writing with pencil on paper to communicate. Endorses some abdominal pain, has pain medication prn. Patient's vitals have been stable this morning, saturating well on mechanical ventilation FiO2 of 30%. Patient had 1.6L removed today during dialysis with 40 ml urine output last 24hrs. Patient currently being weaned off of sedation with prn sedation scheduled as needed. Patient still not able to adequately protect her airway and will continue to be mechanically ventilated at this point. Patient's son was contacted and is planning to visit her in the hospital in the morning on 05/28. Later in the day, patient was noted to have brown liquid leaking out when her abdominal incision was pressed, surgery notified. 05/28/2025: No acute events overnight; was informed that yesterday Surgery saw her for the abdominal leakage and noted it was just liquid, not fecal matter. Today patient continued to be off of sedation with prn for pain. Patient continues to be alert and oriented, communicating with pencil and paper. Patient's vitals are stable. Patient states she continues to have mild abdominal discomfort. Patient had a bowel movement overnight, continues to have minimal urine output. Patient had her sons come to bedside today and had a goals of care conversation and general update and planning with the family and patient today with attending Dr. Robles present. Refer to event note for more details. Patient is now DNR and will be getting her affairs sorted out before attempting to see if patient is able to tolerate one more spontaneous breathing trial. Patient is not scheduled for dialysis currently for today. Near the end of day, Dr. Fuentes notified of patient's continued abdominal leakage, being dark yellow, mustard color coming out of stapled incision area. He recommended that nursing cover with gauze and for a small bowel series being ordered first thing in the morning. 05/29/2025: No acute events overnight. Abdominal incision wound dehiscence noted, with feculent watery leakage. Dr Fuentes examined the patient, initially ordered small bowel series. Further conversation with patient family regarding risks and benefits of surgery to find source of leakage were held, patient elected to avoid surgery due to high risk of procedure. As such, small bowel series was canceled. Patient underwent dialysis today, with 1.4 L of fluid removed. Midodrine added, patient continues to have high pressor requirements. Patient does not want to have comfort care at this time, wants more time to consider her options, but does not want to pursue her surgery. 05/30/2025: No acute events overnight. Patient continues to have abdominal wound feculent leakage. Patient confirmed again today she does not want to have surgical intervention at this time due to high risk of procedure, upper gi small bowel series was cancelled for that reason. Patient continues to have PRN fentanyl medication given to her. Patient continues to be on levophed of 0.13 -> 0.11 this morning along with midodrine TID (as needed) for blood pressure support. Patient continues to need more time before she is ready to attempt the process of coming off of the mechanical ventilator. Patient's family was present this morning and were updated and had their questions answered. Patient is on her last day of the steroid taper. Left lower lung lobe aspirate culture came back with ESBL and staph auricularis (likely contaminant). Patient is continuing the meropenem. Patient is not receiving tube feeds. Patient's vent settings and end tidal co2 were indicating a blockage of the ET tube initially by mucous and was fixed after salt water saline was flushed through it. Patient not having dialysis today, will reassess tomorrow. Exam Vital Signs Temp Pulse Resp BP Pulse Ox O2 Del Method O2 Flow Rate 98.8 F 104 H 18 110/64 97 Mechanical Ventilation 2 05/30/25 08:00 05/30/25 10:45 05/30/25 06:22 05/30/25 10:45 05/30/25 10:45 05/30/25 04:00 05/29/25 13:17 FiO2 30 05/30/25 10:21 Narrative Exam General: No acute distress; A&Ox3; intubated, mechanically ventilated Skin: Warm, dry, intact, flaky skin b/l lower extremities, no obvious rash. HENT: NCAT, EOMI/PERRL, not icteric. External ears normal. No rhinorrhea. Moist mucous membranes; RIJ central line in place. Cardiovascular: Regular rate and rhythm, no murmur, +S1/S2; chemo port R chest Respiratory: Bilateral rhonchi GI: Soft, tender, non-distended. No guarding or rebound tenderness. Abdominal wound dehiscence, with feculent watery discharge. : No suprapubic tenderness. No flank tenderness bilaterally. Nephrostomy tubes bilateral Extremities: 2+ bilateral lower extremity pitting edema, no cyanosis, no clubbing. Extremity pulses present, no mottling. Neuro: Grossly nonfocal. Moving all 4 extremities. CN not formally tested but appear grossly intact. Psychiatric: Cooperative, appropriate affect. Objective Labs 05/30/25 04:35 05/30/25 04:35 Labs: Laboratory Results - last 24 hr 05/30/25 04:35 WBC 12.8 H RBC 3.16 L Hgb 8.8 L Hct 27.2 L MCV 86 MCH 27.8 MCHC 32.4 RDW Std Deviation 57.7 H Plt Count 104 L Neut % (Auto) 84 H Lymph % (Auto) 6 L Newton % (Auto) 4 Eos % (Auto) 2 Baso % (Auto) 1 Neut # (Auto) 10.8 H Lymph # (Auto) 0.8 L Newton # (Auto) 0.6 Eos # (Auto) 0.3 Baso # (Auto) 0.1 Immature Gran # (Auto) 0.25 H Absolute Nucleated RBC 0.04 H Immature Gran % 2 H Nucleated RBC % 0 Sodium 142 Potassium 3.3 L Chloride 101 Carbon Dioxide 25.5 Anion Gap 16 BUN 42 H Creatinine 2.4 H Estim Creat Clear Calc 20.9 L eGFR 21 L BUN/Creatinine Ratio 18 Glucose 105 Calculated Osmolality 293 Calcium 8.5 Corrected Calcium 8.9 Phosphorus 2.3 L Magnesium 2.1 Total Bilirubin 0.6 AST 13 ALT < 7 L Alkaline Phosphatase 130 H D Total Protein 5.0 L Albumin 3.5 Globulin 1.5 L Albumin/Globulin Ratio 2.3 H ABG Interpretation ABG results: 05/16/25 05/16/25 05/16/25 12:11 18:26 19:18 ABG pH 7.41 ABG pCO2 29 L ABG pO2 86 ABG HCO3 18 L ABG O2 Saturation 96 ABG Base Excess -6 L VBG pH 7.26 L 7.36 VBG pCO2 36 32 L VBG pO2 49 46 VBG Base Excess -10 L -7 L 05/17/25 05/17/25 05/17/25 01:51 01:58 12:35 ABG pH 7.34 L 7.21 L D ABG pCO2 30 L 30 L ABG pO2 92 181 H D ABG HCO3 16 L 12 L ABG O2 Saturation 97 99 H ABG Base Excess -9 L -15 L VBG pH 7.28 L VBG pCO2 37 VBG pO2 60 H VBG Base Excess -9 L 05/17/25 05/17/25 05/18/25 15:12 22:59 04:06 ABG pH 7.17 L* 7.26 L 7.23 L ABG pCO2 32 26 L 32 ABG pO2 343 H D 298 H D 208 H D ABG HCO3 12 L 12 L 13 L ABG O2 Saturation 100 H 100 H 100 H ABG Base Excess -16 L -14 L -13 L VBG pH VBG pCO2 VBG pO2 VBG Base Excess 05/18/25 05/19/25 05/20/25 12:10 07:13 17:49 ABG pH 7.49 H D ABG pCO2 35 ABG pO2 126 H D ABG HCO3 26 ABG O2 Saturation 99 H ABG Base Excess 3 VBG pH 7.23 L 7.57 VBG pCO2 35 L 35 L VBG pO2 173 H D 36 D VBG Base Excess -12 L 10 H 05/21/25 05/22/25 05/25/25 10:08 04:59 07:52 ABG pH 7.45 7.44 7.33 L ABG pCO2 34 32 49 H ABG pO2 70 L D 140 H D 173 H ABG HCO3 24 22 26 ABG O2 Saturation Not Performed. 99 H 98 ABG Base Excess 0 -2 0 VBG pH VBG pCO2 VBG pO2 VBG Base Excess 1005/26/25 05/26/25 00:20 07:28 15:48 ABG pH 7.20 L D 7.32 L D 7.29 L ABG pCO2 67 H D 51 H D 53 H ABG pO2 180 H 260 H D 90 D ABG HCO3 26 27 H 25 ABG O2 Saturation 100 H 99 H 97 ABG Base Excess -3 0 -2 VBG pH VBG pCO2 VBG pO2 VBG Base Excess 05/26/25 05/27/25 20:51 04:34 ABG pH 7.31 L 7.46 H D ABG pCO2 49 H 33 D ABG pO2 138 H D 116 H D ABG HCO3 25 23 ABG O2 Saturation 98 98 ABG Base Excess -2 -1 VBG pH VBG pCO2 VBG pO2 VBG Base Excess Quality Measures Quality Measures VTE prophylaxis Advance care planning discussed with:: patient and child Assessment & Plan Assessment Current Active Medications: Generic Name Dose Route Start Last Admin Trade Name Freq PRN Reason Stop Dose Admin Fentanyl Citrate 50 mcg 05/27/25 08:48 05/30/25 10:10 Fentanyl Cit Inj 50 Mcg/Ml Amp 2ml IVP 06/01/25 08:47 50 mcg Q6HR PRN Administration Severe pain 7-10 Fentanyl Citrate 25 mcg 05/28/25 07:08 05/30/25 13:09 Fentanyl Cit Inj 50 Mcg/Ml Amp 2ml IVP 06/01/25 08:47 25 mcg Q6HR PRN Administration Moderate pain 4-6 Heparin Sodium (Porcine) 2,600 unit 05/23/25 19:07 05/29/25 12:51 Heparin Sod Inj 1000 Unit/Ml Vial 10 Ml INDWELLCAT 06/06/25 19:06 2,600 unit PRN PRN Administration DIALYSIS Heparin Sodium (Porcine) 5,000 unit 05/24/25 09:00 05/30/25 08:47 Heparin Sod Inj 5000 Unit/Ml Vial SC 06/07/25 08:59 5,000 unit Q12HR JESSICA Administration Norepinephrine/Dextrose 8 mg in 250 mls @ 7.697 mls/hr 05/26/25 14:52 05/30/25 13:08 Levophed In D5w 8mg/250ml IV 06/25/25 14:51 0.13 mcg/kg/min .Q24H PRN 20.012 mls/hr PER PROTOCOL Titration Protocol 0.05 MCG/KG/MIN Albumin Human 25 gm in 100 mls @ 100 mls/hr 05/27/25 10:38 05/29/25 11:22 Albuminex 25% Ivpb IV Infused PRN PRN Infusion DIALYSIS Meropenem 500 mg/ Sodium 50 mls @ 100 mls/hr 05/29/25 13:00 05/30/25 08:39 Chloride IV 06/05/25 12:59 100 mls/hr BID JESSICA Administration Ipratropium [place] 0.5 mg 05/25/25 07:28 05/30/25 06:24 Ipratropium Rt 0.5 Mg/ 2.5 Ml Nebu INH 06/24/25 07:27 0.5 mg Q6HR PRN Administration SHORTNESS OF BREATH Levalbuterol HCl 0.63 mg 05/25/25 07:28 05/30/25 06:24 Levalbuterol Rt 0.63 Mg/3 Ml Nebu INH 06/24/25 07:27 0.63 mg Q6HR PRN Administration WHEEZING Midodrine 10 mg 05/29/25 14:00 05/30/25 05:23 Midodrine 5 Mg Tablet PO 06/28/25 13:59 Not Given TID JESSICA Ondansetron HCl 4 mg 05/16/25 18:34 05/17/25 09:51 Ondansetron Inj 2 Mg/Ml Inj 2 Ml IVP 06/15/25 18:33 4 mg Q6H PRN Administration NAUSEA OR VOMITING Protocol Pantoprazole Sodium 40 mg 05/17/25 09:00 05/30/25 08:38 Pantoprazole Inj 40 Mg Vial IVP 06/16/25 08:59 40 mg QDAY JESSICA Administration Thiamine HCl 100 mg 05/27/25 09:00 05/30/25 08:37 Thiamine Inj 100 Mg/Ml Vial 2 Ml IVP 06/26/25 08:59 100 mg QDAY JESSICA Administration Plan 70-year-old female with history of nephrolithiasis (s/p bilateral nephrostomy tubes Sep 2024), endometrial cancer in remission, T2DM, and chronic anemia presenting with severe abdominal pain, vomiting, fever, and chills, found to have acute sigmoid diverticulitis with localized perforation and sepsis requiring ICU admission. S/p exploratory laparotomy, sigmoid colectomy with end descending colostomy and hysterectomy on 05/17. S/p intubation 05/26 for respiratory decompensation due to mucous plugs. Neurology #Off sedation drips, has PRN's (below) Dx: - weaned off of sedation drip 05/27 Rx: - PRN fentanyl 25 for moderate pain; PRN fentanyl 50 mcg IVP for severe pain #Post-operative pain Treatment Plan: - Gabapentin 300 mg PO HS. - PRN fentanyl 25 for moderate pain; PRN fentanyl 50 mcg IVP for severe pain Cardiovascular #Shock DDx: septic shock (source: feculent peritonitis, uncontrolled) vs RV fluid overload Diagnostic Test: - Point of care ultrasound 05/26: enlarged, dilated, and minimally collapsible IVC. Indicating fluid removal needed. - Improved blood pressure with hemodialysis today with removal of 1L of fluid. - 05/28: WBC continues to be elevated at 17, thinking elevated WBC is more likely due to demargination, especially since patient continues to be on steroids, tapering. - BAL culture 05/25 grew ESBL E. coli - Abdominal incision with feculent watery discharge Treatment Plan: - Continuing Levophed for hypotension. - Continue to taper stress steroid dose - hydrocortisone: 25 mg IV Q12H (50 mg total) for 2 days (05/26-05/27), then 25 mg IV daily for 2 days (05/28-05/29) then stop. (stress steroid dose taper from septic shock on admission). - Maintain an adequate blood pressure (MAP target 65-70). - Monitor hemodynamics closely and adjust vasopressor therapy as needed. - Treat infection as below Respiratory #Mechanical Ventilation #Acute hypoxic respiratory failure. Due to mucous plugging Diagnostic Test: - CXR 05/25: left lung mucous plug in the mainstem bronchus with atelectasis -> bronchoscopy cleared plug - CXR 05/26: Bronchoscopy performed on 05/26 to clear mucous plug and secretions from right lower lobe. - Patient has poor inspiratory effort, ability to clear secretions, and weakness; is unable to cough to remove mucous plugs & secretions. Treatment Plan: - Continuing mechanical ventilation as patient has poor ability to deal with secretions, poor cough reflex, poor inspiratory effort i/s/o recent surgery. - MV settings: VT 400, FIO2 30, PEEP 8.0, RR 16 - Patient DNR/DNI, considering extubation and allowing comfort care failure to protect airway GI, , F/E/N #Perforated sigmoid diverticulitis with feculent peritonitis (post-op 05/17) #Abdominal wound dehiscence with feculent discharge #S/p exploratory laparotomy, sigmoid colectomy with end descending colostomy and hysterectomy on 05/17. Diagnostic Test: - CT abd/pelvis: acute sigmoid diverticulitis with localized rupture of diverticula and mild pelvic pneumoperitoneum. - Surgery findings: inflamed and thickened sigmoid with large perforation and feculent peritonitis. Inflamed and necrotic appearing uterus. Very thin anterior abdominal fascia with evidence of multiple mesh placements from prior operations. - Pathology report 05/16: uterus - endometroid carcinoma with extensive necrosis with negative surgical margins. Sigmoid colon - extensive diverticulosis with perforation and inflammation. - 05/27: Later in the day, patient was noted to have brown liquid leaking out when her abdominal incision was pressed, surgery notified. - 05/29: Abdominal incision dehiscence, significant feculence watery discharge. Surgery aware. Treatment Review (completed) - Trophic feeds (05/22 - 05/23). Treatment Plan: - Ondansetron 4mg IV Q6H PRN for nausea. - Monitor colostomy bag for activity. - Tube feeds held - Patient wishes to avoid additional ex lap after discussing risks and benefits. #History of endometrial cancer #Recurrent endometrial cancer Diagnostic Test: - Pathology report 05/16: uterus - endometroid carcinoma with extensive necrosis with negative surgical margins. - Patient is a poor candidate for immunosuppresants given patient may be septic currently, has bilateral nephrostomy tubes, may need a CT if hydronephrosis is worsening, currently being ventilated, may need to have PEG tube with tracheostomy in future (which would be a further increased risk of infection). Treatment Plan: - Being followed with Rad/Onc in [place]. - Hysterectomy 05/17 Renal #Acute kidney injury DDx: Septic shock, ATN Diagnostic Test: - Baseline Cr: 0.8-1.3. - Cr 2.3 on admission. - CT abd/pelvis: Bilateral nephrostomy ureteral catheter. Treatment Review (completed) - Started [employer] on 05/19 - 05/20. - HD as per nephrology recommendations, with fluid removal Treatment Plan: - No Dialysis today, will reassess tomorrow. - Daily renal panel to trend Cr. - Avoid nephrotoxins; Renally dose meds as appropriate. - Strict I&Os, monitor urine output closely. #Isolated elevated Anion Gap, resolved Likely due to increase in unmeasured acids i/s/o acute renal failure Dx: -05/27: AGAP of 20 with normal bicarb of 22.8 and lactic acid of 1.3 Rx: -Will trend AG with cmp; no acute treatment needed at this time #Hematuria Diagnostic Test: - UA: RBC 54. Treatment Plan: - Follow-up outpatient with urology to work-up hematuria. #Obstrutive nephrolithiasis s/p nephrostomy tube Patient's nephrostomy tubes have been leaking urine from attachment site. Treatment Plan: - Dr. Woody?(urologist) plans to replace tubes on 05/31. NPO after midnight on 05/31. - Will be placed if patient is stable, unlikely at this time #hypokalemia, repleted #hypophosphatemia, repleted Due to bowel leakage Dx: -Potassium 3.3 (3.1) -Telemetry not showing abnormal rhythms Rx: -Repleted with Kphos -Will Trend labs, monitor for improvement; monitor telemetry Heme #Normocytic anemia DDx: anemia of chronic disease vs iron-deficiency anemia vs reactive. Diagnostic Test: - Hemoglobin stable in 8's - Haptoglobin 276 Treatment Plan: - Monitor CBC. #Leukocytosis Due to infection vs demargination, especially since patient continues to be on steroids, tapering. Dx: -WBC continues to downtrend 12.8 (13.6) -patient has been afebrile Rx: -Meropenem 05/29 - RRx: -Zosyn 05/22 - 05/28 Endo #Noninsulin dependent T2DM Diagnostic Test: - Hemoglobin A1c on 05/12/2025 was 5.2. Treatment Plan: - Continue to check blood glucose levels - Will start insulin if need better glycemic control. ID #[id number] E. coli lower respiratory infection Diagnostic test: - BAL culture left lower lung (05/25) ESBL E. coli Treatment plan: - Meropenem renally dosed 500 mg IV daily (started 05/29) #E. Coli urinary tract infection (Treated) Diagnostic Test: - Urinalysis: blood 2+, RBC 54, WBC 1069, bacteria 4+, positive leukocyte esterase. - Patient has history of positive UAs. - 10/31/24 urine culture: Klebsiella. Started Ciprofloxacin 400 mg. - Urine culture 05/16 showed E. Coli. Treatment Review (completed): - Ciprofloxacin (05/17-05/19). - Zosyn dosing per pharmacy for E.coli on urine culture (05/19-05/28). Health Maintenance: DVT prophylaxis: heparin 5000 SC. GI prophylaxis: Pantoprazole 40 mg IV daily. Diet: Holding tube feeds Tomlinson: no tomlinson; nephrostomy tubes in place Lines: right IJ dialysis cath. Drips: levophed Vent: MV, reintubated 05/26. CODE STATUS: DNR Patient plan of care was discussed with the attending physician, Dr. Robles & senior resident Dr. Kerri Goss MD PGY-1
--- NOTE | 2025-05-30 13:40 | PC.SS ---
Update: Patient remains intubated. Off sedation. Receiving pressor support. NPO. Dialysis held today. Patient in possession of low grade fever. Dr. Zelaya consulting. Surgery consulting.
[2025-05-30 17:38] LABS: Hematocrit 25.3 % (36.0-46.0)
[2025-05-30 17:42] LABS: Hemoglobin 8.3 g/dL (12.0-16.0)
[2025-05-30] MEDS: Norepinephrine/D5W 8mg/250ml 8 MG/250 ML BAG 35.406 MG IV (17:47)
--- NOTE | 2025-05-30 20:19 | PD.RESEVENT ---
Documentation for date of: 05/30/25 Event Note Event Note: 2014 Goals of care discussion with family. All members present at bedside. Patient confirmed wishes by writing. Shows full comprehension. Patient and family decided to start with COMFORT MEASURES at 20:19 on 05/30/2025. RN's present at bedside. Will start comfort care protocol with morphine drip and prn morphine. Family also requested ativan in case, will add for family satisfaction, RN instructed to avoid use until patient says her goodbyes. RT to extubate patient 5 minutes after the start comfort measures. Patient and family in agreement with plan. Donor network contacted by GILBERTO Cardenas. Plan of care discussed with attending Lilian Rodríguez M.D. PGY3 Disclaimer: Minor errors in school superintendent may be present as this note was dictated using voice recognition software.
[2025-05-30] MEDS: Morphine IV Drip 100mg/100ml 100 ML IV (20:40)
[2025-05-30] MEDS: LORazepam 2 MG/ML VIAL 1 MG IVP (20:41)
[2025-05-30] MEDS: MORPHINE SULF INJ 4 MG/ML VIAL 2 MG IVP ×2 (21:01→21:51)
--- NOTE | 2025-05-30 22:00 | PC.NURSE ---
Donor network contacted prior to comfort care extubation; Call back when TOD.
--- NOTE | 2025-05-30 22:42 | PD.RESEVENT ---
Documentation for date of: 05/30/25 Event Note Event Note: Received sign out from ICU resident about patient in room 257 in the ICU 70 y.o F who presented to the ED due to acute diverticulitis with perforation and septic shock requiring ICU admission for pressor support. After prolonged hospital stay for multiple issues ICU resident spoke with family they decided to start with COMFORT MEASURES at 20:19 on 05/30/2025. Patient now downgraded to medsurg. Rashid Gentile MD PGY-2
--- NOTE | 2025-05-31 01:08 | PC.NURSE ---
Report received from Theresa MACIAS, pt arrived to room 361 via bed. Comfort care ordered, morphine drip infusing at 2ml/hr.
--- NOTE | 2025-05-31 01:52 | PC.NURSE ---
Current volume to be infused on morphine pump 71.7ml
[2025-05-31 03:54] VITALS: PULSE 99; RESP 18; O2SAT 99
[2025-05-31 06:00] VITALS: BMI 31.8
[2025-05-31 07:05] VITALS: PULSE 87; RESP 18; O2SAT 99
--- NOTE | 2025-05-31 07:39 | PD.IDPROG ---
Subjective Subjective Interval history: on comfort care will sign off Exam Vital Signs Temp Pulse Resp BP Pulse Ox O2 Del Method O2 Flow Rate 100.4 F 87 18 50/28 L 99 Mechanical Ventilation 2 05/30/25 16:00 05/31/25 07:05 05/31/25 07:05 05/30/25 23:01 05/31/25 07:05 05/30/25 04:00 05/29/25 13:17 FiO2 30 05/30/25 20:00 Narrative Exam limited visit Objective - Internal Medicine Labs 05/30/25 17:30 05/30/25 04:35 Labs: Laboratory Results - last 24 hr 05/30/25 17:30 Hgb 8.3 L Hct 25.3 L ABG Interpretation ABG results: 05/16/25 05/16/25 05/16/25 12:11 18:26 19:18 ABG pH 7.41 ABG pCO2 29 L ABG pO2 86 ABG HCO3 18 L ABG O2 Saturation 96 ABG Base Excess -6 L VBG pH 7.26 L 7.36 VBG pCO2 36 32 L VBG pO2 49 46 VBG Base Excess -10 L -7 L 05/17/25 05/17/25 05/17/25 01:51 01:58 12:35 ABG pH 7.34 L 7.21 L D ABG pCO2 30 L 30 L ABG pO2 92 181 H D ABG HCO3 16 L 12 L ABG O2 Saturation 97 99 H ABG Base Excess -9 L -15 L VBG pH 7.28 L VBG pCO2 37 VBG pO2 60 H VBG Base Excess -9 L 05/17/25 05/17/25 05/18/25 15:12 22:59 04:06 ABG pH 7.17 L* 7.26 L 7.23 L ABG pCO2 32 26 L 32 ABG pO2 343 H D 298 H D 208 H D ABG HCO3 12 L 12 L 13 L ABG O2 Saturation 100 H 100 H 100 H ABG Base Excess -16 L -14 L -13 L VBG pH VBG pCO2 VBG pO2 VBG Base Excess 05/18/25 05/19/25 05/20/25 12:10 07:13 17:49 ABG pH 7.49 H D ABG pCO2 35 ABG pO2 126 H D ABG HCO3 26 ABG O2 Saturation 99 H ABG Base Excess 3 VBG pH 7.23 L 7.57 VBG pCO2 35 L 35 L VBG pO2 173 H D 36 D VBG Base Excess -12 L 10 H 05/21/25 05/22/25 05/25/25 10:08 04:59 07:52 ABG pH 7.45 7.44 7.33 L ABG pCO2 34 32 49 H ABG pO2 70 L D 140 H D 173 H ABG HCO3 24 22 26 ABG O2 Saturation Not Performed. 99 H 98 ABG Base Excess 0 -2 0 VBG pH VBG pCO2 VBG pO2 VBG Base Excess 05/26/25 05/26/25 05/26/25 00:20 07:28 15:48 ABG pH 7.20 L D 7.32 L D 7.29 L ABG pCO2 67 H D 51 H D 53 H ABG pO2 180 H 260 H D 90 D ABG HCO3 26 27 H 25 ABG O2 Saturation 100 H 99 H 97 ABG Base Excess -3 0 -2 VBG pH VBG pCO2 VBG pO2 VBG Base Excess 05/26/25 05/27/25 20:51 04:34 ABG pH 7.31 L 7.46 H D ABG pCO2 49 H 33 D ABG pO2 138 H D 116 H D ABG HCO3 25 23 ABG O2 Saturation 98 98 ABG Base Excess -2 -1 VBG pH VBG pCO2 VBG pO2 VBG Base Excess Assessment & Plan A&P Narrative uti vs asb hx of obstructive uropathy with prior nephrostomy drainage endometrial ca hx ongoing possible pneumonia with resp failure on hd since admit per notes this is likely all her CA. 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 on little O2, so late sputum of uncertain significance. I did not request that test. if icu wants to try abx , that is a choice, but no surprise, the germs found are R to prior abx. will see again prn Time Spent With Patient Time: Total time spent is greater than 50% in coordination of care (as documented) at patient's floor/unit and/or counseling patient:
--- NOTE | 2025-05-31 08:20 | CHAP ---
Went to visit patient before the scheduled procedure to find the family in the room. They told me that the procedure was cancelled and she was on comfort care and that they would like me to pray with them. We held hands and I prayed for the patient and the family as they were saying goodbye to their loved one.
--- NOTE | 2025-05-31 09:49 | PD.RESPRO ---
Documentation for date of: 05/31/25 Subjective Subjective Interval history: Reason for consult: Oliguria/Anuria - WARREN in ICU patient post-septic shock and exploratory lap History of present illness: 70-year-old female with a history of nephrolithiasis (s/p bilateral nephrostomy tubes placed Sep 2024), endometrial cancer in remission, type 2 diabetes mellitus, chronic anemia, and COPD, admitted with perforated sigmoid diverticulitis and feculent peritonitis. She underwent exploratory laparotomy, sigmoid colectomy with end descending colostomy, and hysterectomy on 05/17. Nephrology was re-consulted today for no urine output. Overnight urine output was 50 cc total, despite adequate fluid resuscitation and pressor support (on norepinephrine and vasopressin). Patient remains in the ICU, intubated and sedated on propofol/fentanyl, receiving broad-spectrum antibiotics (ciprofloxacin + metronidazole). 05/18/2025: Patient seen in ICU during morning rounds. Intubated, sedated, on vasopressor support. No urine output noted from nephrostomy tubes or Bal. Nursing reports total 50 cc output overnight. No new fevers reported. BP 112/57 mmHg, HR 82. Labs: WBC 18.6, Hgb 10.4, Hct 31.6, Plt 106 (yesterday 419), Na 136, K 5.4, Cl 108, CO2 13.4, BUN 40, Cr 2.5 (GFR 20), Ca 8.8, Phos 6.0, Mg 2.1, Albumin 2.7, Alk Phos 176, Lactic acid 3.0->3.2. ABG: pH 7.30, pCO2 32, HCO3 13. 05/19/2025: Patient currently seen in ICU. On CRRT. On ventilator. Patient more alert and awake. No urine output from nephrostomy tubes or Bal. She had a sigmoid resection and colostomy with minimal stool. Labs, medications reviewed. Will continue with CRRT for next [address] Coker who is at bedside. 05/21/2025: Patient seen today in the ICU. She remains intubated, sedated, and critically ill. No significant urine output noted overnight; nephrostomy tubes remain with minimal drainage. Blood pressure stable on low-dose pressor support. No plans for RETAIL PERFORMANCE COACH today, will re-evaluate tomorrow based on hemodynamics, urine output, and lab trends. Labs: WBC 7.4, Hgb 6.8, Hct 20.6, Plt 39, Na 130, K 4.4, Cl 99, CO2 22.7, Cr 0.7 (GFR >60), Ca 8.9, Phos 2.7, Mg 1.7. ABG: pH 7.45, pCO2 34, HCO3 24. No acute respiratory distress noted; acidosis resolved. 05/22/2025: Patient seen today in the ICU. Still intubated and sedated, overall condition unchanged from yesterday. No urine output overnight; bilateral nephrostomy tubes with minimal drainage (~20 cc total). No dialysis planned for today. Will trial Bumex 2 mg IV twice daily with albumin 25 g IV twice daily to assess for diuretic responsiveness. Will re-evaluate tomorrow for potential dialysis depending on output and lab trends. BP 99/61, HR 65. Labs: WBC 7.0, Hgb 8.5, Hct 26, Plt 30, Na 138, K 4.4, Cl 99, CO2 20, BUN 13, Cr 1.3, Ca 8.7, Phos 2.1, Mg 1.8. 05/23/2025: Patient seen today in ICU. She remains intubated and sedated, currently being placed on pressure support trial to evaluate for possible extubation. She is off pressors. Tube feeds restarted yesterday and are being tolerated. No urine output overnight; nephrostomy tubes remain with minimal to no drainage. Renal function slightly worsened with Cr 1.7 (GFR 32). Considering dialysis today depending on overall fluid balance and metabolic trends. BP 103/68, HR 67. Labs: WBC 6.2, Hgb 7.6, Hct 22.8, Plt 37, Na 138, K 3.8, Cl 98, CO2 19, BUN 20, Cr 1.7 (GFR 32), Ca 8.8, Phos 2.3, Mg 1.9. 05/24/2025: Patient extubated today and more awake; follows commands well. Still no urine output overnight. Bilateral nephrostomy tubes flushed. Bumex will be discontinued today as it?s no longer helping, and dialysis will continue tomorrow. The patient tolerated dialysis well yesterday. BP 190/55, HR 89. Labs: WBC 8.9, Hgb 7.9, Hct 24.7, Plt 60, Na 141, K 3.8, Cl 99, CO2 25.9, BUN 14, Cr 1.4 (GFR 40), Ca 8.4, Phos 1.7, Mg 2.3. 05/25/2025: Seen today in the ICU. Patient is sitting up and following commands. Right leg more edematous than usual. No urine output overnight; nephrostomy tubes flushed with 80 cc of output. Dialysis ongoing today. Patient has been downgraded from ICU to primary team but remains in the ICU for monitoring. BP 82/64, HR 119. Labs: WBC 8.9, Hgb 7.9, Hct 25.1, Plt 90, Na 143, K 4.3, Cl 100, CO2 27.4, BUN 19, Cr 1.7 (GFR 32), Ca 8.8, Phos 3.4, Mg 2.2, Albumin 3.7. ABG: pH 7.33, pCO2 49, PaO2 173, HCO3 26. CXR: Impression: Total left lung atelectasis likely due to mucous plug; recommend ultrasound to confirm and exclude left pleural fluid. 05/26/2025: Patient seen today, no acute overnight events. She underwent bronchoscopy yesterday to clear mucus from the lung. Blood pressure remains soft, and she was started on Midodrine 10 mg TID for support. She remains anuric, and both nephrostomy tubes noted to be leaking; plan to remove and replace nephrostomy tubes. No dialysis planned for today; will reassess tomorrow based on labs and urine output. Patient currently on BiPAP. BP 90/55, HR 83. Labs: WBC 15.5, Hgb 8.5, Hct 27.5, Plt 147, Na 142, K 4.0, Cl 101, CO2 22.7, BUN 25, Cr 2.2 (up from 1.7), GFR 24, Ca 8.9, Phos 4.3, Mg 2.2, Albumin 3.8. ABG: pH 7.32, pCO2 51, HCO3 27. Imaging: CXR: Bibasilar pneumonia. 05/28/2025: Patient seen in ICU this morning. She remains intubated but awake, alert, and following commands. She was able to participate in a family goals of care discussion this morning with her sons and ICU team. Per discussion, patient expressed desire to be DNR and made it clear that if unable to be successfully extubated, she would prefer to focus on comfort rather than invasive measures such as tracheostomy, PEG, or prolonged dialysis dependence. Patient remains anuric with minimal output from nephrostomy tubes. Nephrostomy tube exchange and stent placement remain on hold per urology due to her current condition and hemodynamic instability. Labs: WBC 17, Hgb 8.5, Hct 27.5, Plt 123, Na 143, K 3.5, Cl 100, CO2 24.6, BUN 25, Cr 2.5, Ca 8.9, Phos 3.2, Mg 1.9, Albumin 2.7. No fevers overnight. 05/29/2025: Patient seen and examined in ICU. She remains intubated, awake, and follows commands appropriately. Continues to be anuric with minimal output from nephrostomy tubes, which have not yet been exchanged. Currently undergoing hemodialysis with a plan to remove 1 L of fluid. During dialysis, patient?s blood pressure has been soft, requiring increase in pressor support for hemodynamic stability. BP 72/57, HR 114. Labs: WBC 13.6, Hgb 9.6, Hct 32, Plt 117, Na 141, K 3.1, Cl 98, CO2 24.7, BUN 49, Cr 2.7, Glucose 105, Ca 9.2, Phos 2.7, Mg 1.8, Albumin 3.5. 05/30/2025: Patient seen today in the ICU. Sleeping, appeared more fatigued but woke up and followed commands when asked. No acute events overnight. Nephrostomy tubes continue to show no output, and the patient remains anuric. No dialysis required for today. Patient had a small bowel wound dehiscence with feculent watery leakage, which was discussed with the family. After family discussions, the decision was made not to pursue further surgical intervention due to high procedure risk, and the small bowel series was canceled. Patient is still highly dependent on pressors and Midodrine for blood pressure support. BP 99/62 pulse 84. Labs: WBC 12.8, hemoglobin 8.8, HCT 27, platelet 104, Na 142, K 3.3, CL 101, CO2 25.5, CR 2.4, GFR 21, BUN 42, Ca 8.9 Phos 2.3, mag 2.1, albumin 3.5. 05/31/2025: Patient transitioned to comfort care yesterday. Family present at the bedside. Nephrology will sign off on the case today. Patient is resting in bed, no acute complaints, and is being kept comfortable. Exam Vital Signs Temp Pulse Resp BP Pulse Ox O2 Del Method O2 Flow Rate 100.4 F 87 18 50/28 L 99 Mechanical Ventilation 2 05/30/25 16:00 05/31/25 07:05 05/31/25 07:05 05/30/25 23:01 05/31/25 07:05 05/30/25 04:00 05/29/25 13:17 FiO2 30 05/30/25 20:00 Narrative Exam General: Resting in bed, no acute distress. CV: Regular rhythm, no murmurs. Resp: No distress, on room air. Abdomen: Soft, non-distended, post-op midline dressing clean/dry/intact. : Nephrostomy tubes in place with minimal output, no acute concerns. Extremities: No edema, pulses present. Neuro: A&O x3, follows commands appropriately. Psychiatric: Calm, cooperative, family at the bedside. Objective Labs 05/30/25 17:30 05/30/25 04:35 Labs: Laboratory Results - last 24 hr 05/30/25 17:30 Hgb 8.3 L Hct 25.3 L ABG Interpretation ABG results: 05/16/25 05/16/25 05/16/25 12:11 18:26 19:18 ABG pH 7.41 ABG pCO2 29 L ABG pO2 86 ABG HCO3 18 L ABG O2 Saturation 96 ABG Base Excess -6 L VBG pH 7.26 L 7.36 VBG pCO2 36 32 L VBG pO2 49 46 VBG Base Excess -10 L -7 L 05/17/25 05/17/25 05/17/25 01:51 01:58 12:35 ABG pH 7.34 L 7.21 L D ABG pCO2 30 L 30 L ABG pO2 92 181 H D ABG HCO3 16 L 12 L ABG O2 Saturation 97 99 H ABG Base Excess -9 L -15 L VBG pH 7.28 L VBG pCO2 37 VBG pO2 60 H VBG Base Excess -9 L 05/17/25 05/17/25 05/18/25 15:12 22:59 04:06 ABG pH 7.17 L* 7.26 L 7.23 L ABG pCO2 32 26 L 32 ABG pO2 343 H D 298 H D 208 H D ABG HCO3 12 L 12 L 13 L ABG O2 Saturation 100 H 100 H 100 H ABG Base Excess -16 L -14 L -13 L VBG pH VBG pCO2 VBG pO2 VBG Base Excess 05/18/25 05/19/25 05/20/25 12:10 07:13 17:49 ABG pH 7.49 H D ABG pCO2 35 ABG pO2 126 H D ABG HCO3 26 ABG O2 Saturation 99 H ABG Base Excess 3 VBG pH 7.23 L 7.57 VBG pCO2 35 L 35 L VBG pO2 173 H D 36 D VBG Base Excess -12 L 10 H 05/21/25 05/22/25 05/25/25 10:08 04:59 07:52 ABG pH 7.45 7.44 7.33 L ABG pCO2 34 32 49 H ABG pO2 70 L D 140 H D 173 H ABG HCO3 24 22 26 ABG O2 Saturation Not Performed. 99 H 98 ABG Base Excess 0 -2 0 VBG pH VBG pCO2 VBG pO2 VBG Base Excess 05/26/25 05/26/25 05/26/25 00:20 07:28 15:48 ABG pH 7.20 L D 7.32 L D 7.29 L ABG pCO2 67 H D 51 H D 53 H ABG pO2 180 H 260 H D 90 D ABG HCO3 26 27 H 25 ABG O2 Saturation 100 H 99 H 97 ABG Base Excess -3 0 -2 VBG pH VBG pCO2 VBG pO2 VBG Base Excess 05/26/25 05/27/25 20:51 04:34 ABG pH 7.31 L 7.46 H D ABG pCO2 49 H 33 D ABG pO2 138 H D 116 H D ABG HCO3 25 23 ABG O2 Saturation 98 98 ABG Base Excess -2 -1 VBG pH VBG pCO2 VBG pO2 VBG Base Excess Quality Measures Quality Measures VTE prophylaxis Advance care planning discussed with:: patient and child Assessment & Plan Assessment Current Active Medications: Generic Name Dose Route Start Last Admin Trade Name Freq PRN Reason Stop Dose Admin Artificial Tears 1 drop 10/28/25 20:16 Artificial Tears 225 Drop/15 Ml Btl BOTH EYES 06/29/25 20:15 Q4HR PRN Dry eyes Epoetin Chivo 10,000 unit 05/31/25 10:30 Epoetin Chivo-Epbx Inj 10,000 Unit/Ml Vial (Esrd) SC 05/31/25 10:31 X1 ONE Morphine Sulfate 100 mls @ 1 mls/hr 05/30/25 20:16 05/31/25 01:00 Morphine Sulfate Iv Drip 100mg/100ml IV 06/04/25 20:15 2 mg/hr .Q24H PRN 2 mls/hr PAIN (COMFORT CARE) Titration Protocol 1 MG/HR Morphine Sulfate 2 mg 05/30/25 20:16 05/30/25 21:51 Morphine Sulf Inj 4 Mg/Ml Vial IVP 06/04/25 20:15 2 mg Q5MIN PRN Administration PAIN Morphine Sulfate 4 mg 05/30/25 20:16 Morphine Sulf Inj 4 Mg/Ml Vial IVP 06/04/25 20:15 On Hold: 05/31/25 09:35 Q1H PRN Comment: OVERLAPPING THERAPY PAIN WITH MORPHINE Ondansetron HCl 4 mg 05/16/25 18:34 05/17/25 09:51 Ondansetron Inj 2 Mg/Ml Inj 2 Ml IVP 06/15/25 18:33 4 mg Q6H PRN Administration NAUSEA OR VOMITING Protocol Plan 70F with history of nephrolithiasis, endometrial cancer, T2DM, and WARREN, who transitioned to comfort care yesterday. Family is present and at peace with the decision. # Acute Kidney Injury Patient no longer pursuing further dialysis, nephrostomy tubes remain in place with minimal output. Plan: Nephrology will sign off on the case today. No further renal interventions planned. ----- Plan discussed with attending physician Dr. Garcia Jackson MD PGY-1 Internal Medicine Attending Provider Attestation/Addendum Patient seen and examined with resident physician Dr. Jackson. Note reviewed, agree with findings and recommendations. Patient to in comfort care. Renal will sign off. Thank you for the consult.
--- NOTE | 2025-05-31 10:03 | PC.SS ---
Follow up note: Pt is on Comfort Care.
--- NOTE | 2025-05-31 13:08 | PD.RESPRO ---
Documentation for date of: 05/31/25 Subjective Subjective Interval history: Patient remains on comfort care. Family seen and supported at bedside. Patient resting comfortably, respirations even and unlabored. No apparent distress noted. Comfort medications administered as needed per protocol. Family updated on patient's condition and place of care. Exam Vital Signs Temp Pulse Resp BP Pulse Ox O2 Del Method O2 Flow Rate 100.4 F 87 18 50/28 L 99 Mechanical Ventilation 2 05/30/25 16:00 05/31/25 07:05 05/31/25 07:05 05/30/25 23:01 05/31/25 07:05 05/30/25 04:00 05/29/25 13:17 FiO2 30 05/30/25 20:00 Narrative Exam General: Resting on bed, frail, elderly Lungs: On room air Heart: Peripheral pulses intact bilaterally, Regular Rate and Rhythm. Abdomen: Soft, non-tender, non-distended, no palpable masses Musculoskeletal: Normal range of motion and strength, No cyanosis or edema, No visible joint swelling Skin: Skin is warm, dry, no rashes or lesions. Psychiatric: Cooperative, appropriate mood and affect, Awake and alert, not agitated Neuro: Cranial nerves II-XII grossly intact. Strength 5/5 throughout. Sensations intact to light touch. Objective Labs 05/30/25 17:30 05/30/25 04:35 Labs: Laboratory Results - last 24 hr 05/30/25 17:30 Hgb 8.3 L Hct 25.3 L ABG Interpretation ABG results: 05/16/25 05/16/25 05/16/25 12:11 18:26 19:18 ABG pH 7.41 ABG pCO2 29 L ABG pO2 86 ABG HCO3 18 L ABG O2 Saturation 96 ABG Base Excess -6 L VBG pH 7.26 L 7.36 VBG pCO2 36 32 L VBG pO2 49 46 VBG Base Excess -10 L -7 L 05/17/25 05/17/25 05/17/25 01:51 01:58 12:35 ABG pH 7.34 L 7.21 L D ABG pCO2 30 L 30 L ABG pO2 92 181 H D ABG HCO3 16 L 12 L ABG O2 Saturation 97 99 H ABG Base Excess -9 L -15 L VBG pH 7.28 L VBG pCO2 37 VBG pO2 60 H VBG Base Excess -9 L 05/17/25 05/17/25 05/18/25 15:12 22:59 04:06 ABG pH 7.17 L* 7.26 L 7.23 L ABG pCO2 32 26 L 32 ABG pO2 343 H D 298 H D 208 H D ABG HCO3 12 L 12 L 13 L ABG O2 Saturation 100 H 100 H 100 H ABG Base Excess -16 L -14 L -13 L VBG pH VBG pCO2 VBG pO2 VBG Base Excess 05/18/25 05/19/25 05/20/25 12:10 07:13 17:49 ABG pH 7.49 H D ABG pCO2 35 ABG pO2 126 H D ABG HCO3 26 ABG O2 Saturation 99 H ABG Base Excess 3 VBG pH 7.23 L 7.57 VBG pCO2 35 L 35 L VBG pO2 173 H D 36 D VBG Base Excess -12 L 10 H 05/21/25 05/22/25 05/25/25 10:08 04:59 07:52 ABG pH 7.45 7.44 7.33 L ABG pCO2 34 32 49 H ABG pO2 70 L D 140 H D 173 H ABG HCO3 24 22 26 ABG O2 Saturation Not Performed. 99 H 98 ABG Base Excess 0 -2 0 VBG pH VBG pCO2 VBG pO2 VBG Base Excess 05/26/25 05/26/25 05/26/25 00:20 07:28 15:48 ABG pH 7.20 L D 7.32 L D 7.29 L ABG pCO2 67 H D 51 H D 53 H ABG pO2 180 H 260 H D 90 D ABG HCO3 26 27 H 25 ABG O2 Saturation 100 H 99 H 97 ABG Base Excess -3 0 -2 VBG pH VBG pCO2 VBG pO2 VBG Base Excess 05/26/25 05/27/25 20:51 04:34 ABG pH 7.31 L 7.46 H D ABG pCO2 49 H 33 D ABG pO2 138 H D 116 H D ABG HCO3 25 23 ABG O2 Saturation 98 98 ABG Base Excess -2 -1 VBG pH VBG pCO2 VBG pO2 VBG Base Excess Quality Measures Quality Measures VTE prophylaxis Assessment & Plan Assessment Current Active Medications: Generic Name Dose Route Start Last Admin Trade Name Freq PRN Reason Stop Dose Admin Artificial Tears 1 drop 05/30/25 20:16 Artificial Tears 225 Drop/15 Ml Btl BOTH EYES 06/29/25 20:15 Q4HR PRN Dry eyes Morphine Sulfate 100 mls @ 1 mls/hr 05/30/25 20:16 05/31/25 01:00 Morphine Sulfate Iv Drip 100mg/100ml IV 06/04/25 20:15 2 mg/hr .Q24H PRN 2 mls/hr PAIN (COMFORT CARE) Titration Protocol 1 MG/HR Morphine Sulfate 2 mg 05/30/25 20:16 05/30/25 21:51 Morphine Sulf Inj 4 Mg/Ml Vial IVP 06/04/25 20:15 2 mg Q5MIN PRN Administration PAIN Morphine Sulfate 4 mg 05/30/25 20:16 Morphine Sulf Inj 4 Mg/Ml Vial IVP 06/04/25 20:15 On Hold: 05/31/25 09:35 Q1H PRN Comment: OVERLAPPING THERAPY PAIN WITH MORPHINE Ondansetron HCl 4 mg 05/16/25 18:34 05/17/25 09:51 Ondansetron Inj 2 Mg/Ml Inj 2 Ml IVP 06/15/25 18:33 4 mg Q6H PRN Administration NAUSEA OR VOMITING Protocol
--- NOTE | 2025-05-31 17:42 | DES_ITS ---
Documentation for date of: 05/31/25 Pronouncement Note Date and Time of Date of : 05/31/25 Time of : 17:38 Contributing Factors (1) Diverticulitis of large intestine with perforation without abscess or bl eeding: Summary Additional details: Called to bedside to evaluate patient for absence of vital signs. myself, Dr. Deng (PGY-3), GILBERTO Mullen was present. Patient was found unresponsive with no spontaneous respiration or palpable pulse. No heart sounds, pupil fixed and dilated, Non reactive to light, No corneal reflexes, No response to painful stimuli. The patient was pronounced at 17:38 on 05/31/2025. Family condolences was given, attending Dr. Villanueva was notified. Additional Data Confirmation of : no pulse, no respirations, no heart sounds and pupils fixed and dilated Family: at bedside Additional persons at bedside: other (GILBERTO Mullen) Attending physician: Ryland Villanueva MD
--- NOTE | 2025-05-31 17:42 | DES_ITS ---
<Statement entered by Jaky Deng MD - 06/01/25 09:55> I discussed with and supervised the application support intern physician who took care of this patient. I personally saw and examined the patient and discussed the assessment and plan with the entire medicine team, including my attending , I agree with the assessment and plan as documented below Jaky Deng M.D. PGY-3 Disclaimer: Despite multiple revisions, due to the dictation software being used, the document bellow may not be free of grammatical errors including phonetic/typographic errors. However, this does not deter from our commitment to providing health care in the patient's best interest in mind. Documentation for date of: 05/31/25 Summary Date and Time Date of admission: 05/16/25 16:27 Summary Hospital Course: Maxine Levi is a 70-year-old female with PMH of nephrolithiasis (s/p bilateral nephrostomy tubes Sep 2024), endometrial cancer in remission, T2DM, and chronic anemia presenting with severe abdominal pain, vomiting, fever, and chills, found to have acute sigmoid diverticulitis with localized perforation and sepsis requiring ICU admission on 05/16/2025. On 05/17, she received exploratory laparotomy, sigmoid colectomy with end descending colostomy and hysterectomy. Patient required vasopressors to maintain her hypotension. On 05/26, patient condition improved, so she was extubated and downgraded to med surg. However, patient showed weak cough reflex and showed continuous oxygen desaturation. CXR showed mucus plugs. Bronchoscopy was done to remove mucus plug two times, but patient didn't show improvement on weak cough reflex and oxygen saturation level constantly remained low. Eventually, patient was again transferred to ICU and was intubated. On 05/28, patient's sons were present for a family goals of care discussion. Patient was off sedation, alert, and oriented, communicating in writing. The patient and family were informed of the seriousness of her condition and active medical issues. Patient expressed that if extubation is unsuccessful, she does not wish to have tubes replaced and prefers comfort-focused measures. She stated she does not want further pain or suffering and requested to be designated DNR. On 05/30, another goals of care discussion was done with family, all members were present at the bedside. The patient confirmed her wishes in writing, demonstrating full understanding. The patient and family agreed to proceed with comfort measures at 20:19 on 05/30/2025. On 05/31, Called to bedside to evaluate patient for absence of vital signs. myself, Dr. Deng (PGY-3), RN Paz was present. Patient was found unresponsive with no spontaneous respiration or palpable pulse. No heart sounds, pupil fixed and dilated, Non reactive to light, No corneal reflexes, No response to painful stimuli. The patient was pronounced at 17:38 on 05/31/2025. Family condolences was given, attending Dr. Villanueva was notified. Assessment and plan discussed with my attending physician Dr. Villanueva and Dr. Deng (PGY-3) Dr. Barba (PGY-1) - Internal medicine resident Additional Data Attending physician: Ryland Villanueva MD Visit Providers Provider Primary care physician: Prasanna Morrell MD Consults: 05/16/25 15:38 Consult to General Surgery Stat Comment: diverticulitis Consulting Provider: Sheela Fuentes 05/18/25 08:05 Consult to Nephrology Routine Comment: Consulting Provider: Farhat Zelaya 05/21/25 09:40 Referral Registered Dietitian Routine Comment: plan to start tube feeds 05/23/25 10:23 Referral Speech Therapy Routine Comment: Swallow screen 05/23/25 11:53 Referral Physical Therapy Routine Comment: Physician Instructions: 05/25/25 09:53 Consult to Infectious Diseases Routine Comment: Complicated UTI, MDR ecoli Consulting Provider: Saurabh Workman Consult to Urology Routine Comment: Nephrostomy tube and ureter stent hx - uti Consulting Provider: Precious Woody 05/26/25 16:12 Referral Wound Care Stat Comment: 05/29/25 16:30 Referral Makeda Stat Comment: Cream Gatherer 05/30/25 20:18 Referral Respiratory Therapy Urgent Comment: Diagnosis Contributing Factors (1) Diverticulitis of large intestine with perforation without abscess or bleeding: Discharge Plan Plan Patient Disposition: Prescriptions/Referrals Referrals: Prasanna Morrell MD [Primary Care Provider, Internal Medicine] Patient/Caregiver Discharge Instructions Print Language: Cymraes
--- NOTE | 2025-05-31 17:57 | PC.NURSE ---
donor network advised that someone will call us back to determine tissue donor status before pt is released, if they don't call back within an hour we are to call them back
--- NOTE | 2025-05-31 18:31 | PC.NURSE ---
spoke with Maria De Jesus from [facility] who is confirming pt will not be a tissue donor and remains may be released
--- NOTE | 2025-05-31 20:59 | PC.NURSE ---
patient's remains picked up at 2004 via gurney with one personnel from home. Belongings with family.
== END 2025-05-31 17:38 | disposition expired | DRG 853 ==
LOC: SERX 14:16 → SERHOLD 18:31 → S2SX 05-17 05:46 → S3NX 05-31 01:09
PROVIDERS: Anesthesiology; Internal Medicine; Internal Medicine Infectious Disease; Student in an Organized Health Care Education/Training Program; Surgery; Admitting Provider Internal Medicine Critical Care Medicine; PCP Internal Medicine; Visit Provider Student in an Organized Health Care Education/Training Program
PROC: 0DTE4ZZ Resection of Large Intestine, Percutaneous Endoscopic Approach (ICD-10-PCS; principal; 2025-05-17 11:00)
DX: A41.51 Sepsis due to Escherichia coli [E. coli] (principal); G93.41 Metabolic encephalopathy; J18.9 Pneumonia, unspecified organism; R65.21 Severe sepsis with septic shock; J95.821 Acute postprocedural respiratory failure; K57.20 Diverticulitis of large intestine with perforation and abscess without bleeding; N39.0 Urinary tract infection, site not specified; N17.9 Acute kidney failure, unspecified; E87.1 Hypo-osmolality and hyponatremia; E87.4 Mixed disorder of acid-base balance; J44.0 Chronic obstructive pulmonary disease with (acute) lower respiratory infection; T81.31XA Disruption of external operation (surgical) wound, not elsewhere classified, initial encounter; Z16.12 Extended spectrum beta lactamase (ESBL) resistance; Z16.24 Resistance to multiple antibiotics; Z93.6 Other artificial openings of urinary tract status; Z85.42 Personal history of malignant neoplasm of other parts of uterus; E11.9 Type 2 diabetes mellitus without complications; Z79.84 Long term (current) use of oral hypoglycemic drugs; D64.9 Anemia, unspecified; D75.839 Thrombocytosis, unspecified; E11.22 Type 2 diabetes mellitus with diabetic chronic kidney disease; E78.5 Hyperlipidemia, unspecified; E83.42 Hypomagnesemia; E87.5 Hyperkalemia; E87.6 Hypokalemia; E87.70 Fluid overload, unspecified; N18.9 Chronic kidney disease, unspecified; T83.032A Leakage of nephrostomy catheter, initial encounter; Y73.2 Prosthetic and other implants, materials and accessory gastroenterology and urology devices associated with adverse incidents; Z51.5 Encounter for palliative care; Z66 Do not resuscitate; D69.6 Thrombocytopenia, unspecified; E83.39 Other disorders of phosphorus metabolism; C54.1 Malignant neoplasm of endometrium; Z79.52 Long term (current) use of systemic steroids; Z79.82 Long term (current) use of aspirin; Z79.899 Other long term (current) drug therapy; Z85.41 Personal history of malignant neoplasm of cervix uteri; Z87.440 Personal history of urinary (tract) infections; Z87.442 Personal history of urinary calculi; Z90.710 Acquired absence of both cervix and uterus; Z92.21 Personal history of antineoplastic chemotherapy; Z92.3 Personal history of irradiation; Z99.81 Dependence on supplemental oxygen
CPT/HCPCS: 36415; 36600; 71045; 74018; 74176; 74250; 76770; 80048; 80053; 80069; 80074; 81001; 82436; 82803; 83010; 83605; 83690; 83735; 83880; 84100; 84133; 84145; 84300; 84443; 84484; 85014; 85018; 85025; 85384; 85610; 85730; 86706; 86803; 86850; 86870; 86900; 86901; 86902; 86921; 86922; 86965; 87040; 87070; 87075; 87077; 87081; 87086; 87186; 87205; 87502; 87811; 92526; 92610; 93005; 93225; 93306; 94002; 94003; 94640; 94660; 94664; 94667; 96361; 96365; 96366; 96375; 96376; 97162; 99284; A4649; A9270; J0131; J0744; J1100; J1171; J1643; J1644; J1720; J1815; J2060; J2185; J2250; J2251; J2270; J2405; J2470; J2543; J2598; J2704; J3010; J3411; J3475; J3490; J7050; J7120; J7999; P9016; P9035; P9045; P9047; Q5106; Q9963; J1805; J1836; P0947